=== PATIENT | female | born 1955 | race Caucasian/White ===

== ENCOUNTER 2017-03-23 06:19 | Inpatient (IN) | payer OTHER ==
[2017-02-18 15:27] VITALS: Ht 157.5 cm; Wt 109.0 kg
--- NOTE | 2017-02-18 16:02 | PAT Medication Instructions ---
Service Date Feb 18, 2017. Current Home Medication List Aspirin (Aspirin Ec), 81 MG PO QAM Atenolol (Tenormin), 25 MG PO BID Cholecalciferol (Vitamin D), 1,000 INTER.UNIT PO QAM Cinnamon (Cinnamon), 1,000 MG PO BID Cyanocobalamin (Vitamin B12), 1 TAB PO QAM Duloxetine HCl (Duloxetine HCl), 60 MG PO BID Fish Oil (Mcintosh-3), 1 CAP PO QAM Liraglutide (Victoza), 1.8 MG INJ QAM Multiple Vitamins W/ Minerals (One Daily For Women), 1 TAB PO QAM Nortriptyline (Pamelor), 25 MG PO HS Omeprazole (Prilosec), 20 MG PO QAM Pregabalin (Lyrica), 150 MG PO BID Topiramate (Topiramate), 1 CAP PO HS Medication Instructions For Your Scheduled Surgery - Hold the following medications 2 weeks prior to surgery: Fish Oil (Mcintosh-3), 1 CAP PO QAM Cinnamon (Cinnamon), 1,000 MG PO BID - Hold the following medications the morning of surgery: Cholecalciferol (Vitamin D), 1,000 INTER.UNIT PO QAM Cyanocobalamin (Vitamin B12), 1 TAB PO QAM Multiple Vitamins W/ Minerals (One Daily For Women), 1 TAB PO QAM - Take the following medications the morning of surgery with a sip of water OTHERWISE NOTHING TO EAT OR DRINK AFTER MIDNIGHT: Aspirin (Aspirin Ec), 81 MG PO QAM Atenolol (Tenormin), 25 MG PO BID Duloxetine HCl (Duloxetine HCl), 60 MG PO BID Liraglutide (Victoza), 1.8 MG INJ QAM Pregabalin (Lyrica), 150 MG PO BID Omeprazole (Prilosec), 20 MG PO QAM - Take the following medications as scheduled the night before surgery: Atenolol (Tenormin), 25 MG PO BID Duloxetine HCl (Duloxetine HCl), 60 MG PO BID Nortriptyline (Pamelor), 25 MG PO HS Topiramate (Topiramate), 1 CAP PO HS Pregabalin (Lyrica), 150 MG PO BID If you have any questions please call us at [phone] or [phone] or [phone]
[2017-02-18 16:24] LABS: MANUAL MICROSCOPIC REQUIRED? NO; REVIEW REQ? NO; URINE APPEARANCE CLEAR (CLEAR); URINE BILIRUBIN NEG (NEG); URINE COLOR YELLOW; URINE EPITHELIAL CELL AUTO 0-5 /lpf (0-5); URINE NITRITE NEG (NEG); URINE PH 5.5 (4.5-7.5); URINE SPECIFIC GRAVITY 1.019 (1.000-1.030); UROBILINOGEN NEG (NEG); ZZUR CULT IF INDIC CLEAN CATCH NO
[2017-02-18 16:27] LABS: BASO % 0.2 %; BASO ABS # 0.02 K/uL (0-0.2); COMPLETE YES; EOS % 1.1 %; IG% 0.2 %; LYMPH % 39.4 %; LYMPH ABS # 3.61 K/uL (1.2-3.4); MEAN CELL VOLUME 94.4 fL (80-100); MEAN CORPUSCULAR HEMOGLOBIN 33.3 pg (25-34); MEAN CORPUSCULAR HGB CONC 35.2 g/dl (32-36); MEAN PLATELET VOLUME 11.7 fL (7.4-10.4); MONO % 5.7 %; NEUT % 53.4 %; PLATELET COUNT 216 K/uL (130-400); RED BLOOD COUNT 4.45 M/uL (4.2-5.4); WHITE BLOOD COUNT 9.16 K/uL (4.8-10.8)
[2017-02-18 16:37] LABS: BUN/CREATININE RATIO 14.4 (10-20); CALCIUM 9.9 mg/dl (8.5-10.1); CREATININE 0.76 mg/dl (0.60-1.20); POTASSIUM 3.9 mmol/L (3.5-5.1)
[2017-02-18 16:40] LABS: PROTHROMBIN TIME (PATIENT) 11.2 SECONDS (9.0-12.0)
[2017-02-19 07:59] LABS: ESTIMATED AVERAGE GLUCOSE 151 mg/dl; HA1C FLAG Normal (Normal)
--- NOTE | 2017-03-22 17:43 | HISTORY & PHYSICAL EXAMINATION ---
DATE OF ADMISSION: 03/23/2017 CHIEF COMPLAINT: Chronic left knee pain. HISTORY OF PRESENT ILLNESS: This is a 62-year-old female patient of Dr. Lee, complaining of chronic left knee pain, longstanding, now progressively getting worse. She has been diagnosed with end-stage osteoarthritis in her patellofemoral joint and her medial joint line. The patient has failed conservative treatment including anti-inflammatories, intra-articular injections and the use of a walker, cane and a brace. The patient has increased pain with weightbearing activities and her pain does interfere with her activities of daily living. PAST MEDICAL HISTORY: Heart murmur, hypertension, irregular heartbeat, anxiety, carpal tunnel syndrome, diabetes mellitus, anemia, rheumatoid arthritis, sciatica, osteoarthritis, acid reflux, hiatal hernia, and obesity. SOCIAL HISTORY: Nonsmoker and nondrinker. FAMILY HISTORY: Noncontributory. PAST SURGICAL HISTORY: Tonsillectomy, hip replacement on the left, hysterectomy, knee replacement on the right and thyroidectomy. MEDICATIONS: Atenolol 25 mg daily, Topamax 25 mg daily, Prilosec 20 mg daily, nortriptyline 25 mg daily, vitamin B12 daily, atenolol 50 mg daily, clopidogrel 150 mg daily, Cymbalta 60 mg daily, Victoza 18/3 mL daily, vitamin D daily, cinnamon 500 mg daily, multivitamin daily, fish oil daily, and aspirin 81 mg daily. ALLERGIES: AMOXICILLIN, CLINDAMYCIN, DEMEROL, KEFLEX, LISINOPRIL, METFORMIN, MORPHINE, PENICILLIN, PERCOCET AND TETANUS TOXOID. PHYSICAL EXAMINATION: GENERAL: Well-developed and well-nourished 62-year-old female in no acute distress. She is alert and oriented x3 and pleasant. HEENT: Normocephalic and atraumatic. Extraocular motions are intact. Pupils are equal and reactive to light. HEART: Regular rate and rhythm. No murmurs appreciated. LUNGS: Clear. ABDOMEN: Soft and nontender. Bowel sounds present. EXTREMITIES: Left knee reveals limited range of motion of 0-125. She has a neutral alignment. She has a mild effusion with 5/5 strength. Crepitation with passive range of motion. NEUROLOGIC: Neurovascularly, she is intact in her left lower extremity. DIAGNOSES: Left knee end-stage osteoarthritis with a history of heart murmur, hypertension, irregular heartbeat, anxiety, carpal tunnel syndrome, diabetes mellitus, anemia, rheumatoid arthritis, osteoarthritis, sciatica, acid reflux, and obesity. PLAN: The patient was advised of her diagnoses. Indications, risks, benefits, and postop course have all been reviewed. The patient wishes to proceed with a left total knee arthroplasty. Necessary consent forms, preoperative testing and clearances will be obtained.
[~2017-03-23] VITALS: Ht 157.5 cm; Wt 109.0 kg
[2017-03-23] VITALS (11 sets, daily range): BP systolic 111–153; BP diastolic 62–78; PULSE 61–98; TEMP 36.3–36.8; O2SAT 92–98
[~2017-03-23 06:19] MED LIST: ACETAMINOPHEN 500 MG TAB PO SCH; ASPI81TA28 PO; ATEN-173 PO; CHOL100010 PO; CINN1CAP2 PO; CYAN100020 PO; CYM60 PO; CeleBREX 200 MG CAP PO SCH; FAMOTIDINE 20 MG TAB PO SCH; GABAPENTIN 300 MG CAP PO SCH; LACTATED RINGER'S 1000ML 1,000 ML IV SCH; LACTATED RINGER'S 1000ML 500 ML IV ONE; LACTATED RINGER'S 1000ML IV SCH; LIRA18IN INJ; METOCLOPRAMIDE HCL 10 MG TAB PO SCH; MULT1TAB22 PO; NORT25CA PO; OMEG10007 PO; OMEP20CA9 PO; PREG1CAP70 PO; ROPIVACAINE 5MG/ML 30 ML 150 MG, BUPIVACAINE/EPINEPHR 0.5% MPF 30 ML, KETOROLAC TROMETH... INFIL SCH; TOPI25CA2 PO; VANCOMYCIN INJ 1,600 MG in SODIUM CHLORIDE 0.9% 500ML 500 ML IV SCH
[2017-03-23] MEDS: TRANEXAMIC ACID INJ 1,000 MG in SODIUM CHLORIDE 0.9% 100ML 100 ML IV SCH ×2 (06:30→09:11)
[2017-03-23] MEDS ORDERED: BUPIVACAINE 0.5 % 5 MG/1 ML PF 10ML VIAL ONE (06:38)
[2017-03-23] MEDS ORDERED: BUPIVACAINE 0.25% 30 ML VIAL ONE (06:38)
[2017-03-23] MEDS ORDERED: DEXAMETHASONE SOD INJ 4 MG/ML VIAL ONE (06:39)
--- NOTE | 2017-03-23 07:25 | History & Physical Bridge Note ---
H&P Re-Evaluation Bridge Note: I have examined the patient, reviewed the History & Physical and in the interval since the performance of the History & Physical I have noted the following changes of clinical significance: No changes noted
[2017-03-23] MEDS ORDERED: EpHEDrine SULFATE INJ 50 MG/ML AMP IV PRN (08:30)
[2017-03-23] MEDS ORDERED: ONDANSETRON INJ 2 MG/ML 2 ML VIAL IV PRN ×2 (08:30→12:00)
[2017-03-23] MEDS ORDERED: FENTANYL CITRATE INJ 50 MCG/1 ML 2 ML VIAL IV PRN (08:30)
[2017-03-23] MEDS ORDERED: ATROPINE SULFATE 0.1 MG/ML 5ML SYR IV PRN (08:30)
[2017-03-23] MEDS ORDERED: ORTHO JOINT ANESTHETIC ONE (09:01)
[2017-03-23] MEDS ORDERED: BACITRACIN 50000 UNIT VIAL ONE (09:02)
[2017-03-23] MEDS ORDERED: POVIDONE-IODINE OP SOLN 30 ML BTL ONE (09:02)
[2017-03-23] MEDS ORDERED: MIDAZOLAM HCL 1 MG/ML 2ML VIAL ONE (09:08)
[2017-03-23] MEDS ORDERED: FENTANYL CITRATE INJ 50 MCG/1 ML 2 ML VIAL ONE (09:08)
[2017-03-23] MEDS ORDERED: PROPOFOL IV EMULSION 10 MG/ML 20 ML VIAL IV ONE (10:10)
[2017-03-23] MEDS ORDERED: EpHEDrine SULFATE INJ 50 MG/ML AMP ONE (10:10)
[2017-03-23] MEDS ORDERED: EpHEDrine SULFATE 50MG/5ML SYR ONE (10:10)
--- NOTE | 2017-03-23 11:27 | [facility] Post Operative Brief Note ---
Immediate Operative Summary Operative Date Mar 23, 2017. Pre-Operative Diagnosis Left knee end-stage osteoarthritis Post-Operative Diagnosis Same as preoperative diagnosis Procedure(s) Performed Left Total Knee Arthroplasty Surgeon Dr. Fitz Lee Manager Of [employer] Surgeon(s) Erlin Cancino PA-C Estimated Blood Loss 5ml Findings patellar malalignment grade 4 patellofemoral and medial femoral condyle Specimens Permanent specimens A: Left knee bone and tissue Drains 2 hemovac Anesthesia spinal sedation orthomix Complication(s) None Disposition Recovery Room / PACU
[2017-03-23] MEDS ORDERED: SOD PHOSPHATE/SOD BIPHOSPHATE ENEMA 132 ML BTL PR PRN (12:00)
[2017-03-23] MEDS ORDERED: BISACODYL 10 MG SUPP PR PRN (12:00)
[2017-03-23] MEDS ORDERED: TRAMADOL HCL 50 MG TAB PO PRN (12:00)
[2017-03-23] MEDS ORDERED: HYDROmorphone INJ 0.5 MG/0.5 ML SYR IV PRN (12:00)
[2017-03-23] MEDS ORDERED: ZOLPIDEM TARTRATE 5 MG TAB PO PRN (12:00)
[2017-03-23] MEDS ORDERED: ACETAMINOPHEN 325 MG TAB PO PRN (12:00)
[2017-03-23] MEDS ORDERED: MAGNESIUM HYDROXIDE SUSP 30 ML UDC PO PRN (12:00)
--- NOTE | 2017-03-23 12:20 | DIAGNOSTIC IMAGING REPORT ---
LEFT KNEE 1 OR 2 VIEWS ROUTINE CLINICAL HISTORY: 62 years-old Female presenting with left knee degenerative joint disease. TECHNIQUE: Frontal and crosstable lateral views of the left knee were obtained. COMPARISON: None. FINDINGS: Postsurgical changes of total left knee arthroplasty with patellar resurfacing. Intra-articular and soft tissue emphysema noted. Surgical drain and skin chung in place. No acute fracture. No hardware complication. IMPRESSION: Expected postsurgical findings status post total left knee arthroplasty with patellar resurfacing. Electronically signed by: Ian Durán M.D. 03/23/2017 12:19 PM Dictated Date/Time: 03/23/2017 12:18 PM
--- NOTE | 2017-03-23 12:32 | Anesthesiology Progress Note ---
Anesthesia Post Op Note Date & Time Mar 23, 2017 at 12:32 Vital Signs Pain Intensity: 0 Vital Signs Past 12 Hours Date Time Temp Pulse Resp B/P (MAP) Pulse Ox O2 Delivery O2 Flow Rate FiO2 03/23/17 12:20 88 17 100 03/23/17 12:20 79 17 03/23/17 12:16 142/72 03/23/17 12:15 75 17 100 03/23/17 12:15 68 17 03/23/17 12:14 85 18 03/23/17 12:14 78 18 100 03/23/17 12:11 114/68 03/23/17 12:09 70 14 03/23/17 12:09 73 14 100 03/23/17 12:06 96/66 03/23/17 12:04 85 15 03/23/17 12:04 85 15 100 03/23/17 12:01 138/65 03/23/17 11:59 82 16 03/23/17 11:59 77 16 100 03/23/17 11:56 125/59 03/23/17 11:54 76 20 125/56 93 03/23/17 11:54 76 20 03/23/17 11:54 36.2 76 16 125/56 100 Mask 10 03/23/17 07:06 36.6 61 20 153/71 92 Room Air Notes Mental Status: alert / awake / arousable, participated in evaluation Pt Amnestic to Procedure: Yes Nausea / Vomiting: adequately controlled Pain: adequately controlled Airway Patency, RR, SpO2: stable & adequate BP & HR: stable & adequate Hydration State: stable & adequate Neuraxial Anesthesia: was administered, sensory block is resolving Anesthetic Complications: no major complications apparent
[2017-03-23] MEDS ORDERED: GLUCAGON FOR INJ 1 MG VIAL SQ PRN (14:00)
[2017-03-23] MEDS ORDERED: GLUCOSE 10 TABS/TUBE PO PRN (14:00)
[2017-03-23] MEDS ORDERED: DEXTROSE 50% 50 ML SYR IV PRN (14:00)
[2017-03-23] MEDS ORDERED: GLUCOSE 40% GEL 15 GM TUBE PO PRN (14:00)
[2017-03-23 14:13] LABS: BASO % 0.2 %; BASO ABS # 0.02 K/uL (0-0.2); EOS % 0.2 %; HEMATOCRIT 42.7 % (37-47); IG% 0.5 %; LYMPH % 13.8 %; LYMPH ABS # 1.34 K/uL (1.2-3.4); MEAN CELL VOLUME 97.3 fL (80-100); MEAN CORPUSCULAR HEMOGLOBIN 32.1 pg (25-34); MEAN PLATELET VOLUME 11.7 fL (7.4-10.4); MONO % 2.4 %; NEUT % 82.9 %; PLATELET COUNT 189 K/uL (130-400); RED BLOOD COUNT 4.39 M/uL (4.2-5.4); WHITE BLOOD COUNT 9.71 K/uL (4.8-10.8)
[2017-03-23 14:36] LABS: BUN/CREATININE RATIO 6.5 (10-20); CALCIUM 8.7 mg/dl (8.5-10.1); CREATININE 0.73 mg/dl (0.60-1.20); MAGNESIUM 1.9 mg/dl (1.8-2.4); POTASSIUM 3.7 mmol/L (3.5-5.1)
[2017-03-23 14:40] LABS: ALB/GLOB RATIO 0.9 (0.9-2); FERRITIN 80.8 ng/ml (8.0-388.0)
[2017-03-23] MEDS: SODIUM CHLORIDE 0.9% 1000ML 1,000 ML IV SCH ×2 (14:41→20:34)
[2017-03-23 14:43] LABS: COMPLETE YES
--- NOTE | 2017-03-23 16:23 | NEUROLOGY CONSULTATION ---
DATE OF CONSULTATION: 03/23/2017 DATE OF CONSULTATION: 03/23/2017 REQUESTING: Dr. Lee. CLINICAL DIAGNOSIS: Intermittent tremor right leg postoperatively. HISTORY OF PRESENT ILLNESS: Ms. Gresham is 62 years old, is a regular patient of Dr. Aliya Walden and has advanced osteoarthritis of her left knee. She underwent arthroscopy today and upon emerging from the anesthesia had intermittent tremulousness of her right leg, not her left, and to some degree both arms. This has been going on intermittently. There is no associated weakness. No new numbness. No convulsive activity of typical type and there has been no clouding of consciousness or any other issues but because of it neurology is being called. PAST MEDICAL HISTORY: Reveals heart murmur, hypertension, irregular heartbeat, possibly atrial fibrillation, chronic anxiety, carpal tunnel syndrome, diabetes with diabetic neuropathy, anemia, rheumatoid arthritis, sciatica, osteoarthritis, acid reflux, hiatal hernia and obesity and also significant for chronic intermittent migraine headaches, essential tremor and she is being treated for all this by Dr. Banks in the [facility]. She has been on Lyrica 150 mg twice a day, Cymbalta and up until a week ago Topamax 25 mg at bedtime which was on board because of her headaches. She felt that it actually made her headaches worse, but did treat her tremor to some degree. She also takes nortriptyline 25 mg daily, I assume for treatment of her headaches. PAST SURGICAL HISTORY: Surgically she has had a T&A, hip replacement on the left, hysterectomy, knee replacement on the right and thyroidectomy. MEDICATIONS: Include atenolol, Topamax 25 mg daily, Prilosec, nortriptyline 25 mg daily, vitamin B12, atenolol 50 mg daily, Plavix 75 mg daily, Cymbalta 60 mg daily, Victoza 18/3 mL daily, vitamin D daily, cinnamon 500 mg daily, multivitamins daily, fish oil daily, aspirin 81 mg daily. It looks as though she is also on Lyrica 150 mg twice a day. ALLERGIES: SHE CLAIMS ALLERGIES TO AMOXICILLIN, CLINDAMYCIN, DEMEROL, KEFLEX, LISINOPRIL, METFORMIN, MORPHINE, PENICILLIN, PERCOCET, AND TETANUS TOXOID. FAMILY HISTORY: Noncontributory. SOCIAL HISTORY: Reveals her to be . Nonconsumer of ethanol, nonsmoker. REVIEW OF SYSTEMS: Reveals the headaches, the tremor of the hands and feet and some neuropathic pain. She has had no recent fevers, sweats, chills, weight loss or weight gain. She has no new issues referable to head, eyes, ears, nose and throat, cardiovascular, pulmonary, gastrointestinal, genitourinary, musculoskeletal systems. PHYSICAL EXAMINATION: Today neurologically she has a blood pressure of 143/61 but initially she had some marginally elevated in the 150 to 76 range. Pulse is 98 and regular. Respirations are 19. Examination of the cranium and cranial nerves reveal some mild tremulousness of the speech and little titubation of the head. Eye movements are normal. Pupils are equal, round and reactive to light. Speech is otherwise clear. There is no aphasic tendencies. She has normal facial sensation. There is no tremor of the outstretched hands which is rapid and consistent with what I suspect is essential tremor. There is a little bit of superimposed cerebellar dysmetria on [id number] and point to point testing. She has a similar tremor in the right foot. The left leg is not moving that much. She has normal reflexes in the upper extremities, absent reflexes at the ankles, downgoing toes. Good strength bilaterally in the lower extremities and normal sensation with the exception of some mild distal vibratory loss and perhaps some mild thermal alteration over the feet. Frankly this looks like an essential tremor. I am not sure what is going on on the right leg. This may be part of her essential tremor. Some of this may well be volitional. None of this looks like a seizure. She feels her tremulousness was better on Topamax. I am going to reinstitute the medication at this time. I am going to da careful review of her drugs which seem to be slightly different here in the hospital than as recorded on her history and physical. I will check back with her tomorrow, but for now I would not do anything more neurologically other than observation and reinstituting Topamax. Unfortunately, if the Topamax does create more of a headache, then we may have to stop that and institute something like primidone, but penitentiary management of her neurologic care is going to reside with Dr. Banks. CORTEZ
--- NOTE | 2017-03-23 17:58 | Medical Consult ---
Consultation Date of Consultation: Mar 23, 2017. Attending Physician: Fitz Lee M.D. Reason for Consultation: postop medical management History of Present Illness Patient seen and examined after undergoing left TKA today by Dr. Lee. She reports feeling "shaky". Has not eaten today. BSG is 185. Notes having tremor of her right leg- this appeared to begin during our exam. Tremor resolved within a few minutes. States she has RLS causing her to kick in her sleep, but no similar tremor of the leg in the past. Has chronic intermittent tremor of the upper extremities which occurs at random. Sees neurologist in [place] for neuropathy. Her neurologist placed on Topamax for tremor approximately 3 months ago. Not having any pain. Denies dizziness, chest pain, SOB, N/V. Denies hx of seizure. Past Medical/Surgical History Medical Problems: (1) Arthritis Status: Chronic (2) DM type 2 (diabetes mellitus, type 2) Status: Chronic (3) GERD (gastroesophageal reflux disease) Status: Chronic (4) HTN (hypertension) Status: Chronic (5) Neuropathy Status: Chronic (6) Obesity, Class III, BMI 40-49.9 (morbid obesity) Status: Chronic (7) Osteoarthritis Status: Chronic (8) RLS (restless legs syndrome) Status: Chronic Surgical Problems: (1) History of total left hip arthroplasty Status: Chronic (2) S/P inguinal hernia repair Status: Chronic (3) S/P partial thyroidectomy Status: Chronic (4) S/P tonsillectomy Status: Chronic (5) S/P total hysterectomy Status: Chronic Family History Asthma MOTHER Diabetes mellitus MOTHER FH: cancer FATHER (lung CA) Hypertension SISTER Social History Smoking Status: Never Smoker Alcohol Use: none Drug Use: none Marital Status: Housing Status: lives with family Occupation Status: employed Allergies Coded Allergies: Tetanus Toxoid (Verified Allergy, Severe, TROUBLE BREATHING, 03/23/17) Penicillins (Verified Allergy, Mild, ITCHINESS, 03/23/17) Onion (Unverified Allergy, Unknown, ? REACTION, ALLERGY SHOWN ON SKIN TEST , 03/23/17) [place] (Verified Allergy, Unknown, PATCH TESTED HIVES REACTION, 03/23/17) PT DOESN'T EAT Tomato (Verified Allergy, Unknown, COUGHING, 03/23/17) Morphine (Verified Adverse Reaction, Intermediate, Gets wild and has the shakes, 03/23/17) Meperidine (Verified Adverse Reaction, Mild, NAUSEA AND VOMITING, 03/23/17) Metformin (Verified Adverse Reaction, Mild, diarrhea, 03/23/17) Oxycodone (Verified Adverse Reaction, Mild, Nausea/Vomiting, 03/23/17) Home Medications Active Reported One Daily For Women (Multiple Vitamins W/ Minerals) 1 Tab Tab 1 Tab PO QAM Aspirin Ec (Aspirin) 81 Mg Tab 81 Mg PO QAM Vitamin B12 (Cyanocobalamin) 1,000 Mcg Tab 1 Tab PO QAM Topiramate 25 Mg Cap 1 Cap PO HS Tenormin (Atenolol) 25 Mg Tab 25 Mg PO BID Pamelor (Nortriptyline HCl) 25 Mg Cap 25 Mg PO HS Cinnamon 500 Mg Cap 1,000 Mg PO BID [place]-3 (Fish Oil) 1 Ea Cap 1 Cap PO QAM Vitamin D (Cholecalciferol) 1,000 Inter.unit Tab 1,000 Inter.unit PO QAM Duloxetine HCl 60 Mg Cap 60 Mg PO BID Prilosec (Omeprazole) 20 Mg Cap 20 Mg PO QAM Victoza (Liraglutide) 18 Mg/3 Ml Inj 1.8 Mg INJ QAM Lyrica (Pregabalin) 150 Mg Cap 150 Mg PO BID Current Inpatient Medications Current Inpatient Medications Medications (Trade) Dose Ordered Sig/Amalia Route Start Time Stop Time Status Last Admin Dose Admin Lactated Ringer's 1,000 ml @ 15 mls/hr Q24H IV 03/23/17 06:00 03/24/17 05:59 Lactated Ringer's 1,000 ml @ 60 mls/hr [id number] IV 03/23/17 06:00 03/23/17 22:39 Acetaminophen (Tylenol Tab) 1,000 mg PREOP PO 03/23/17 06:00 03/23/17 18:00 03/23/17 07:27 1,000 MG Celecoxib (CeleBREX CAP) 200 mg PREOP PO 03/23/17 06:00 03/23/17 18:00 03/23/17 07:26 200 MG Famotidine (Pepcid Tab) 20 mg PREOP PO 03/23/17 06:00 03/23/17 18:00 03/23/17 07:27 20 MG Gabapentin (Neurontin Cap) 600 mg PREOP PO 03/23/17 06:00 03/23/17 18:00 03/23/17 07:26 600 MG Metoclopramide HCl (Reglan Tab) 10 mg PREOP PO 03/23/17 06:00 03/23/17 18:00 03/23/17 07:26 10 MG Tranexamic Acid 1000 mg/Sodium Chloride 110 ml @ 660 mls/hr TODAY@06,0630 IV 03/23/17 06:00 03/23/17 18:00 03/23/17 09:11 660 MLS/HR Vancomycin HCl 1600 mg/Sodium Chloride 532 ml @ 200 mls/hr PREOP IV 03/23/17 06:00 03/24/17 05:59 03/23/17 07:17 200 MLS/HR Fentanyl Citrate (Fentanyl Inj) 50 mcg Q5M PRN IV 03/23/17 08:30 03/23/17 14:00 Ondansetron HCl (Zofran Inj) 4 mg ONE PRN IV 03/23/17 08:30 03/23/17 14:00 Ephedrine Sulfate (EpHEDrine SULFATE INJ) 5 mg Q5M PRN IV 03/23/17 08:30 03/23/17 14:00 Atropine Sulfate (Atropine Sulfate 0.1MG/Ml Inj) 0.5 mg Q1M PRN IV 03/23/17 08:30 03/23/17 14:00 Atenolol (Tenormin Tab) 25 mg BID PO 03/23/17 21:00 04/22/17 20:59 Cholecalciferol (Vitamin D Tab) 1,000 inter.unit QAM PO 03/24/17 09:00 04/23/17 08:59 Duloxetine HCl (Cymbalta Cap) 60 mg BID PO 03/23/17 21:00 04/22/17 20:59 Nortriptyline HCl (Pamelor Cap) 25 mg HS PO 03/23/17 21:00 04/22/17 20:59 Pregabalin (Lyrica Cap) 150 mg BID PO 03/23/17 21:00 04/22/17 20:59 Non-Formulary Medication (Cyanocobalamin (Vitamin B12)) 1 tab QAM PO 03/24/17 09:00 04/23/17 08:59 UNV Miscellaneous Information (Order Awaiting Action) 1 ea QS N/A 03/23/17 16:00 04/22/17 15:59 Non-Formulary Medication (Topiramate ) 1 cap HS PO 03/23/17 21:00 04/22/17 20:59 UNV Sodium Chloride 1,000 ml @ 100 mls/hr Q10H IV 03/23/17 11:51 03/24/17 11:50 Vancomycin HCl 1750 mg/Sodium Chloride 535 ml @ 200 mls/hr Q12H IV 03/23/17 20:00 03/23/17 22:41 Acetaminophen/ Hydrocodone Bitart ([place] 5/325 Tab) 1 TABLET FOR PAIN RATING... Q4H PRN PO 03/23/17 12:00 04/06/17 11:59 Acetaminophen (Tylenol Tab) 650 mg Q6H PRN PO 03/23/17 12:00 04/22/17 11:59 Magnesium Hydroxide (Milk Of Magnesia Susp) 30 ml Q6H PRN PO 03/23/17 12:00 04/22/17 11:59 Bisacodyl (Dulcolax Supp) 10 mg DAILY PRN KS 03/23/17 12:00 04/22/17 11:59 Sodium Biphosphate/ Sodium Phosphate (Fleet Enema) 132 ml DAILY PRN KS 03/23/17 12:00 04/22/17 11:59 Docusate Sodium (coLACE CAP) 100 mg BID PO 03/23/17 21:00 04/22/17 20:59 Diphenhydramine HCl (Benadryl Cap) 25 mg Q8H PRN PO 03/23/17 12:00 04/22/17 11:59 Zolpidem Tartrate (Ambien Tab) 5 mg HSZ PRN PO 03/23/17 12:00 04/22/17 11:59 Multivitamins (Multivitamin Tab) 1 tab QAM PO 03/24/17 09:00 04/23/17 08:59 Ondansetron HCl (Zofran Inj) 4 mg Q6H PRN IV 03/23/17 12:00 04/22/17 11:59 Pantoprazole Sodium (Protonix Tab) 40 mg QAM PO 03/24/17 09:00 04/23/17 08:59 Tramadol HCl (Ultram Tab) 1 tablet for pain rating... Q4H PRN PO 03/23/17 12:00 04/22/17 11:59 Rivaroxaban (Xarelto Tab) 10 mg Q24H PO 03/24/17 06:00 04/05/17 05:59 Hydromorphone HCl (Dilaudid Inj) 0.5 mg Q3H PRN IV 03/23/17 12:00 04/06/17 11:59 Insulin Aspart (novoLOG ASPART) SLIDING SCALE G... ACHS SC 03/23/17 17:15 04/22/17 17:14 Review of Systems Ten systems reviewed and negative except as noted in HPI. Physical Exam Date Time Temp Pulse Resp B/P (MAP) Pulse Ox O2 Delivery O2 Flow Rate FiO2 03/23/17 13:25 77 18 150/76 (100) 98 03/23/17 12:31 81 19 143/61 100 03/23/17 12:31 83 19 03/23/17 12:26 78 21 03/23/17 12:26 82 21 154/53 100 03/23/17 12:26 36.4 81 16 143/61 (93) 100 Nasal Cannula 2 03/23/17 12:21 79 22 03/23/17 12:21 78 22 153/73 100 03/23/17 12:20 88 17 100 03/23/17 12:20 79 17 03/23/17 12:16 142/72 03/23/17 12:15 75 17 100 03/23/17 12:15 68 17 03/23/17 12:14 85 18 03/23/17 12:14 78 18 100 03/23/17 12:11 114/68 03/23/17 12:09 70 14 03/23/17 12:09 73 14 100 03/23/17 12:06 96/66 03/23/17 12:04 85 15 03/23/17 12:04 85 15 100 03/23/17 12:01 138/65 03/23/17 11:59 82 16 03/23/17 11:59 77 16 100 03/23/17 11:56 125/59 03/23/17 11:54 76 20 125/56 93 03/23/17 11:54 76 20 03/23/17 11:54 36.2 76 16 125/56 100 Mask 10 03/23/17 07:06 36.6 61 20 153/71 92 Room Air General Appearance: no apparent distress, + obese Head: normocephalic, atraumatic Eyes: normal inspection ENT: hearing grossly normal Neck: supple, trachea midline Respiratory/Chest: lungs clear, normal breath sounds, no respiratory distress Cardiovascular: regular rate, rhythm, no murmur, normal peripheral pulses Abdomen/GI: normal bowel sounds, non tender, soft Extremities/Musculoskelatal: no calf tenderness, no pedal edema, + pertinent finding (s/p left TKA. drain in place with sanguinous drainage. ) Neurologic/Psych: alert, normal mood/affect, oriented x 3, + pertinent finding (right lower extremity tremor during exam, resolved within 5-10 minutes. no focal deficit on gross examination. ) Skin: normal color, warm/dry Laboratory Results Last 24 Hours Test 03/23/17 06:49 03/23/17 12:03 03/23/17 13:21 03/23/17 13:32 Bedside Glucose 185 mg/dl 150 mg/dl 185 mg/dl Test 03/23/17 13:38 Assessment & Plan S/P LEFT TKA POD # [address] Lee Pain control, activity, wound care per ortho Monitor daily H/H for sign of acute blood loss anemia PT, OT evals RIGHT LEG TREMOR Workup- BSG in 180s, EKG unremarkable, CBC, CMP, mag unremarkable, lactate elevated to 3.6 (possibly secondary to surgery today) IVF's increased to 125/ hour Neurology consulted, discussed with Dr. Arguello who initially recommended EEG, after evaluation essential tremor was considered most likely, continued on Topamax DM TYPE 2 Hold Victoza Novolog sliding scale HYPERTENSION Stable, continue atenolol DVT PROPHYLAXIS Per ortho DISPOSITION Per ortho Patient seen in collaboration with Dr. Cobb. Please see his addendum. Attending Addendum, Dr. Cobb This is a 62 year female s/p left knee arthroplasty today with orthopedics consulting medicine service for further medical recommendations. When CHELSY Bill and I saw the patient earlier today for initial consult physical exam, patient was resting on the bed and had complaints of feeling tremors of upper extremities. Subsequent glucose check was performed and hypoglycemia was ruled out with glucose 185. During the physical exam, she was seen to have right lower extremity shaking. Patient reports that she has had episodes at home when sleeping and suddenly kick her right leg but it would not shake as we observed. Episode lasted for about 5 minutes before resolution on its own. She was completely conscious the entire time and was able to cooperate on physical exam. We ordered EKG and labs which were unremarkable except for lactic acid above 3 but this mild elevation may be due to recent orthopedic surgery. We consulted neurology service because it was unclear why patient was on topiramate as outpatient which she said was for her history of upper extremity tremors and also history of diabetic neuropathy. She reported that she was started on this medication 3 months ago and has not followed up with the outpatient neurology PA. We consulted neurology service to evaluate in case she may be having seizure. Neurology service asked us to order EEG but upon their evaluation later in the day, neurology service does not believe that she had seizure and may have had essential tremor vs shaking at patient's volition. We will defer neurology medications to neurology service. For her history of diabetes it would be preferable to be on sliding scale insulin instead of home dose Victoza.
[2017-03-23] MEDS: INSULIN ASPART 100 UNITS/ML 3 ML PEN SC SCH ×2 (18:21→21:29)
[2017-03-23] MEDS: HYDROCODONE/ACETAMOPHEN 5/325MG TAB PO PRN (19:34)
[2017-03-23] MEDS ORDERED: VANCOMYCIN INJ 1,750 MG in SODIUM CHLORIDE 0.9% 500ML 500 ML IV SCH (20:00)
[2017-03-23] MEDS: DULOXETINE HCL 60 MG CAP PO SCH (20:34)
[2017-03-23] MEDS: NORTRIPTYLINE HCL 25 MG CAP PO SCH (20:34)
[2017-03-23] MEDS: PREGABALIN 150 MG CAP PO SCH (20:35)
[2017-03-23] MEDS: TOPIRAMATE 25 MG TAB PO SCH (20:35)
[2017-03-23] MEDS: DOCUSATE SODIUM 100 MG CAP PO SCH (20:37)
[2017-03-23] MEDS ORDERED: NON-FORMULARY MEDICATION (Cinnamon 1,000 MG) PO SCH (21:00)
[2017-03-24] VITALS (8 sets, daily range): BP systolic 102–122; BP diastolic 59–75; PULSE 52–64; TEMP 36.4–36.8; O2SAT 92–96
[2017-03-24 00:29] LABS: ACT87 HEP C IGG SCREEN** NEG (NEG)
--- NOTE | 2017-03-24 00:55 | OPERATIVE REPORT ---
DATE OF OPERATION: 03/23/2017 INDICATION FOR PROCEDURE: A 62-year-old female who has end-stage osteoarthritis of her left knee, it is primarily patellofemoral joint. She has marked lateral tracking of the patella with patellofemoral malalignment and bone loss in the patellofemoral joint. Still has some maintained tibial-femoral joint space with some osteoarthritis there. She had successful right knee replacement in the past. PREOPERATIVE DIAGNOSIS: End-stage osteoarthritis, left knee. POSTOPERATIVE DIAGNOSIS: Same. PROCEDURE: Left total knee arthroplasty. SURGEON: Dr. Lee. SOLE MOLDER: Erlin Cancino PA-C. ANESTHESIA: Spinal sedation, adductor nerve block and Orthomix. OPERATIVE PROCEDURE: The patient was taken to the operating room, anesthetized under sedation and spinal anesthetic. She was placed supine on the operating room table. Pneumatic tourniquet was placed on the left upper thigh which was moderately obese and her left lower extremity was prepped and draped in the usual sterile fashion using ChloraPrep. Knee exam demonstrates she had a little bit of hyperextension of the knee and she had good range of motion and flexion. She had a lateral tracking patella, [id number] in the patellofemoral joint. She had a little bit ligamentous laxity with varus-valgus stress, but no particular instability. After the left lower extremity was sterilely prepped and draped with ChloraPrep, the leg was elevated, exsanguinated with Esmarch bandage and the pneumatic tourniquet was raised to 325 mmHg. Anterior incision made across the left knee. Skin was incised sharply, subcutaneous flaps were elevated. Incision was carried down through medial retinaculum and extended up in the mid third of the quadriceps tendon and extended down to the medial tibial tubercle. Intraarticular findings demonstrated eburnated bone in the patellofemoral joint, grade 4 patellofemoral DJD. She had bone loss in the patella with the width of the thinnest portion only 4 mm of bone remaining of the patella, which is quite thin. The medial femoral condyle had grade 4 DJD. Tibial plateau still had good articular cartilage in both compartments and lateral femoral condyle flexion surface still had good articular cartilage. Cruciate ligaments were still intact. Menisci were intact. I used the [employer] 2.0 total knee arthroplasty system using [employer] MR templating, templating the femur for a 4, tibia for a 2. The knee was then exposed by excising the infrapatellar fat pad, excising the cruciate ligaments and the meniscus remnants. Then, we excised the fat pad over the anterior femur for placement of the component in that area. We released the lateral synovial bands and then flexed up the knee and placed custom femoral cutting block in position with pins and then the anterior, posterior and chamfer cuts were made with a 5-in-1 cutting block for a size 4 femur. Then, the knee was extended and a subperiosteal peel was performed around the patella. Patella had large rimming osteophytes and quite thin as previously dictated. We could not totally reproduce the width of the patella and we could not take much patella off in order not to make it too thin, so we made the patella around between 10 and 11 mm thick, leaving a defect where there was significant bone loss in the lateral facet. We felt we could span that defect and use cement in that area. The freehand cut technique was used. The 32 patella was chosen. The drill holes were made for the patella and the trial was placed in position and had good coverage and it was stable. Then, attention was taken to the tibia. Tibia was subluxed and retractors were placed and the custom tibial cutting block was pinned in position and then we took +2 mm off the tibia based on MRI templating evaluation by the engineers. A cut was made perpendicular to the long axis of the tibia. Then, we assessed ligamentous balance with lamina edge sawyer and the ligaments were balanced in extension and flexion. The tibia was then re-exposed and then the 2 tibial trial baseplate was externally rotated in line with the tibial tubercle, pinned in position, and punch for stem was used. Then, the 4 femoral trial was inserted and centered, and the notch cutting devices were used. A collet was placed and a 12 insert which was the high flex posterior stabilized insert gave balanced ligaments full range of motion, but the patella had some slight liftoff laterally still, so we did a formal lateral release, leaving the synovium intact and the patella tracked centrally. The trials were removed and the anesthetic cocktail was injected per protocol. The knee was then copiously irrigated with pulsatile lavage antibiotic solution and bacitracin. Then, the Simplex cement was vacuum mixed. The final components were cemented with the final components being the [employer] Journey 2.0 Oxinium size 4 left femoral component posterior stabilized with the 2 tibial baseplate with a 12 mm posterior stabilized high flex poly insert and the 32 patella. While cement cured, we did a Betadine soak and then irrigated out the knee copiously again with antibiotic solution and bacitracin. Then brought 2 drains out laterally to lathing supervisor to a Hemovac. I then closed the quadriceps tendon and medial retinaculum with [id number] #1 Vicryl sutures. Subcutaneous tissue was closed with interrupted 2-0 Vicryl, skin was closed with chung. Sterile dressings were applied and the patient tolerated the procedure well. Erlin Cancino PA-C, was my orthotics prosthetics assistant, he functioned as orthotics prosthetics assistant, performing the tasks of leg positioning, soft tissue retraction, instrument management, and performed the fascial, subcutaneous and skin closure, and will participate in some of the postoperative care of the patient. I attest to the content of the Intraoperative Record and any orders documented therein. Any exception s are noted below.
[2017-03-24] MEDS: SODIUM CHLORIDE 0.9% 1000ML 1,000 ML IV SCH (03:32)
[2017-03-24] MEDS: RIVAROXABAN 10 MG TAB PO SCH (05:51)
[2017-03-24 06:23] LABS: MEAN CELL VOLUME 95.7 fL (80-100); MEAN CORPUSCULAR HEMOGLOBIN 32.7 pg (25-34); MEAN CORPUSCULAR HGB CONC 34.2 g/dl (32-36); MEAN PLATELET VOLUME 11.8 fL (7.4-10.4); PLATELET COUNT 181 K/uL (130-400); RED BLOOD COUNT 3.76 M/uL (4.2-5.4); WHITE BLOOD COUNT 14.08 K/uL (4.8-10.8)
[2017-03-24 06:53] LABS: BUN/CREATININE RATIO 11.2 (10-20); CALCIUM 8.5 mg/dl (8.5-10.1); CREATININE 0.58 mg/dl (0.60-1.20); POTASSIUM 3.9 mmol/L (3.5-5.1)
--- NOTE | 2017-03-24 08:02 | Orthopedic Progress Note ---
Orthopedic Progress Note Date of Service Mar 24, 2017. Subjective Post OP Day: 1 Reports: feeling well, pain controlled w PO medications, Denies: complaints, chest pain, SOB, nausea / vomiting, calf pain Additional Notes: Had some tremor episodes post op, neurology on board, EEG ordered, not initially thought to be a seizure. + hx RLS Objective calves soft nontender, N/V intact, capillary refill less than 2 sec., dressing C /D/I, A&O x3, toes mobile Date Time Temp Pulse Resp B/P (MAP) Pulse Ox O2 Delivery O2 Flow Rate FiO2 03/24/17 03:53 36.8 64 16 121/65 (83) 94 Room Air 03/24/17 00:10 Room Air 03/23/17 22:56 36.7 72 16 139/73 (95) 94 Room Air 03/23/17 20:29 76 137/75 (95) 03/23/17 19:17 36.3 82 18 136/71 (92) 97 Room Air 03/23/17 17:02 97 Room Air 03/23/17 16:03 36.8 88 18 111/62 (78) 95 Nasal Cannula 2.0 03/23/17 15:40 97 Nasal Cannula 2.0 03/23/17 14:52 36.4 76 18 117/68 (84) 97 Nasal Cannula 2.0 03/23/17 13:55 98 18 144/78 (100) 98 03/23/17 13:25 77 18 150/76 (100) 98 03/23/17 13:00 Nasal Cannula 2.0 03/23/17 13:00 Nasal Cannula 2.0 03/23/17 12:55 36.6 86 16 132/72 (92) 98 Nasal Cannula 2.0 03/23/17 12:31 81 19 143/61 100 03/23/17 12:31 83 19 03/23/17 12:26 78 21 03/23/17 12:26 82 21 154/53 100 03/23/17 12:26 36.4 81 16 143/61 (93) 100 Nasal Cannula 2 03/23/17 12:21 79 22 03/23/17 12:21 78 22 153/73 100 03/23/17 12:20 88 17 100 03/23/17 12:20 79 17 03/23/17 12:16 142/72 03/23/17 12:15 75 17 100 03/23/17 12:15 68 17 03/23/17 12:14 85 18 03/23/17 12:14 78 18 100 03/23/17 12:11 114/68 03/23/17 12:09 70 14 03/23/17 12:09 73 14 100 03/23/17 12:06 96/66 03/23/17 12:04 85 15 03/23/17 12:04 85 15 100 03/23/17 12:01 138/65 03/23/17 11:59 82 16 03/23/17 11:59 77 16 100 03/23/17 11:56 125/59 03/23/17 11:54 76 20 125/56 93 03/23/17 11:54 76 20 03/23/17 11:54 36.2 76 16 125/56 100 Mask 10 Laboratory Results 24 Hours: Test 03/23/17 13:57 03/24/17 05:26 White Blood Count 9.71 K/uL Red Blood Count 4.39 M/uL Hemoglobin 14.1 g/dL 12.3 g/dL Hematocrit 42.7 % 36.0 % Mean Corpuscular Volume 97.3 fL Mean Corpuscular Hemoglobin 32.1 pg Mean Corpuscular Hemoglobin Concent 33.0 g/dl Platelet Count 189 K/uL Mean Platelet Volume 11.7 fL Neutrophils (%) (Auto) 82.9 % Lymphocytes (%) (Auto) 13.8 % Monocytes (%) (Auto) 2.4 % Eosinophils (%) (Auto) 0.2 % Basophils (%) (Auto) 0.2 % Neutrophils # (Auto) 8.05 K/uL Lymphocytes # (Auto) 1.34 K/uL Monocytes # (Auto) 0.23 K/uL Eosinophils # (Auto) 0.02 K/uL Basophils # (Auto) 0.02 K/uL Assessment & Plan Assessment: POD #1, Lt TKA Post op tremor Plan: PT/ OT DVT proph- Xarelto D/C planning- HH for 2wks then OPPT when stable. Appreciate medicine and neurology input. Inhouse Planning Pain Management: [place], Dilaudid, PO Tylenol DVT Prophylaxis: Xarelto Discharge Planning Discharge Planning: home with home health Pain Management: [place] DVT Prophylaxis: Xarelto Therapy: Physical Therapy, Occupational Therapy
--- NOTE | 2017-03-24 08:04 | Discharge Instructions ---
Discharge Instructions Date of Service Mar 24, 2017. Admission Reason for Admission: Left Knee Degenerative Joint Disease Discharge Discharge Diagnosis / Problem: Left TKA Discharge Goals Goal(s): Improve function Activity Recommendations Activity Limitations: as noted below . Instructions / Follow-Up Instructions / Follow-Up ACTIVITY RECOMMENDATIONS: SELF CARE INSTRUCTIONS AFTER TOTAL KNEE REPLACEMENT A. You may need to continue a physical therapy program after discharge from the hospital. There are several options available to you. Your doctor will assist you in selecting the best one for you. 1. An out-patient facility 2 to 3 times a week for therapy or home therapy. 2. Continue working on all exercises taught to you in the hospital. Your goals should be to increase bending of your knee to 90 degrees and beyond and to fully straighten your knee. B. You may progress at your own pace from walking with a walker or crutches to a cane; then to no assistive devices. C. Make walking a part of your daily routine. Be up as much as comfortable with rest periods throughout the day. Rest with leg elevation is very important. Use the ice wrap frequently for the first 3-4 weeks. D. There are no restrictions on activities. You may ride in a car, shop, participate in electrical subcontractor and all social activities. E. Wear the long elastic stockings (JOHN hose) 20 hours a day for 2 weeks after surgery. They can be removed several times a day for laundering and for a bath. F. You may shower, no tub baths until cleared by your doctor. SPECIAL CARE INSTRUCTIONS: VERY IMPORTANT TO READ AND REVIEW A. There are a few signs you need to watch for after you are home. Call [facility] if you notice any of the followin. Increased severe knee pain. Some pain is expected especially when you exercise. 2. Increased swelling in your leg or knee; pain or swelling of the calf muscle in either lower leg. 3. Any fluid drainage from the incision. 4. Shortness of breath or chest pain. B. Please call [facility] at if you have any concerns or questions about your operation or recovery. The doctor or his nurse will return your call promptly. C. You must take antibiotics before dental work, bladder, bowel or other surgery. Your doctor will provide you with a permanent care to carry describing this precaution. IMPORTANT: * REMEMBER TO TAKE ASPIRIN, 81 MG, TWICE DAILY FOR 4 WEEKS UNLESS OTHERWISE DIRECTED. THIS IS YOUR BLOOD THINNER. * HIGH RISK PATIENTS MAY BE PRESCRIBED A STRONGER BLOOD THINNER. THIS WILL BE PROVIDED AT DISCHARGE. * CALL IF INCREASED PAIN, REDNESS, DRAINAGE OR FEVER GREATER THAT 101. * WEAR JOHN HOSE 20 HOURS PER DAY FOR 2 WEEKS. * YOU MAY HAVE A LARGE BAND-AID LIKE DRESSING (SILVERON). THIS WILL REMAIN ON YOUR INCISION FOR 7 DAYS, THEN CAN BE REMOVED. IF INCISION IS LEAKING THROUGH DRESSING, CALL THE OFFICE . FOLLOW UP VISIT: If appointment is not already scheduled: Please call [facility] to make a follow-up appointment for 2 weeks after your surgery at . Current Hospital Diet Patient's current hospital diet: Diabetes Type 2 Diet Discharge Diet Recommended Diet: Diabetes Type 2 Diet Procedures Procedures Performed: Left Total Knee Arthroplasty Pending Studies Studies pending at discharge: no Laboratory Results Hemoglobin A1c Test 02/18/17 15:58 Range/Units Estimated Average Glucose 151 mg/dl Hemoglobin A1c 6.9 H 4.5-5.6 % Medical Emergencies . Who to Call and When: Medical Emergencies: If at any time you feel your situation is an emergency, please call 911 immediately. . Non-Emergent Contact Non-Emergency issues call your: Primary Care Provider . "Provider Documentation" section prepared by Erlin Cancino. . VTE Core Measure Inpt VTE Proph given/why not?: Other Anticoagulation (Xarelto), T.EAfshan Stockings, SCD's [place] Drug Monitoring Program Search Results: patient reviewed within database, no issues identified
[2017-03-24] MEDS: DOCUSATE SODIUM 100 MG CAP PO SCH ×2 (08:33→21:00)
[2017-03-24] MEDS: MULTIVITAMIN TAB PO SCH (08:34)
[2017-03-24] MEDS: CYANOCOBALAMIN 500 MCG TAB (VIT B-12) PO SCH (08:34)
[2017-03-24] MEDS: DULOXETINE HCL 60 MG CAP PO SCH ×2 (08:34→21:13)
[2017-03-24] MEDS: CHOLECALCIFEROL 1000 INTER.UNIT TAB PO SCH (08:34)
[2017-03-24] MEDS: PANTOprazole SOD 40 MG TAB PO SCH (08:34)
[2017-03-24] MEDS: INSULIN ASPART 100 UNITS/ML 3 ML PEN SC SCH ×4 (08:41→21:00)
[2017-03-24] MEDS: PREGABALIN 150 MG CAP PO SCH ×2 (08:46→21:13)
--- NOTE | 2017-03-24 08:53 | Anesthesiology Progress Note ---
Anesthesia Post Op Note Date & Time Mar 24, 2017 at 08:51 Vital Signs Pain Intensity: 5.0 Vital Signs Past 12 Hours Date Time Temp Pulse Resp B/P (MAP) Pulse Ox O2 Delivery O2 Flow Rate FiO2 03/24/17 08:22 36.8 60 16 117/68 (84) 96 Room Air 03/24/17 03:53 36.8 64 16 121/65 (83) 94 Room Air 03/24/17 00:10 Room Air 03/23/17 22:56 36.7 72 16 139/73 (95) 94 Room Air Notes Mental Status: see Notes Airway Patency, RR, SpO2: stable & adequate BP & HR: stable & adequate Hydration State: stable & adequate pt having confusion/passing out/falling; pt was hooked up to EEG monitor; spoke with warehouse technician and he stated he did not note any seizure activity; Neurology consult is to see pt today. pt unable to participate in evaluation;
[2017-03-24] MEDS: HYDROCODONE/ACETAMOPHEN 5/325MG TAB PO PRN ×2 (09:50→15:43)
--- NOTE | 2017-03-24 16:24 | PROGRESS NOTE ---
DATE: 03/24/2017 SUBJECTIVE: Marie looks well today. She still has a tremor of her hands which is chronic and now has very little if any tremor in the lower extremities and both of them are moving well. She is post-spinal anesthesia, so some of the lack of left leg tremor yesterday may have been caused by the effects of the local anesthesia and it is possible she was simply having more generalized tremor as part of her essential tremor syndrome, postoperatively. Whatever the case, exam is essentially normal save for the tremor.There are no cranial nerve deficits,the only movement abnormalities are the tremors of the hands which is worse with intention and it disappears at rest and there is no evidence for hemiparesis, hemisensory loss, etc. More importantly, the EEG today was normal, revealing no evidence for focal or generalized encephalopathy. No evidence for potentially epileptogenic activity, specifically not originating from the left hemisphere. She is back on her basic medications which include Topamax 25 daily, Lyrica 150 mg twice a day, Cymbalta 60 mg daily, and nortriptyline 25 mg daily. These have been given by in [place] and she is going to follow up with him regarding her tremor, her migraine headaches and other neurologic issues. The plan is apparently for discharge tomorrow and I am going to sign off the case neurologically as she appears to be stable and is back to her baseline neurologically. [facility] CAMPUSCarmelita
[2017-03-24] MEDS: NORTRIPTYLINE HCL 25 MG CAP PO SCH (21:13)
[2017-03-24] MEDS: TOPIRAMATE 25 MG TAB PO SCH (21:13)
--- NOTE | 2017-03-24 21:31 | Progress Note ---
Medicine Progress Note Date & Time of Visit: Mar 24, 2017 at 11:50 . Subjective Doing well postoperatively. No chest pain. No cough or dyspnea. No nausea or vomiting. No BM postop. Voiding without difficulty. Postop pain fairly well-controlled. . Objective Last 8 Hrs Date Time Temp Pulse Resp B/P (MAP) Pulse Ox O2 Delivery O2 Flow Rate FiO2 03/24/17 21:09 52 122/75 (91) 03/24/17 15:58 36.4 59 16 102/59 (73) 95 Room Air 03/24/17 15:45 96 Room Air Physical Exam: General- lying in bed, no distress Neck- no JVD Lungs- clear Heart- regular Abdomen- normal bowel sounds, soft, nontender Extremities- left knee wrapped; SCDs applied Neuro- alert . Laboratory Results: Last 24 Hours Test 03/24/17 05:26 03/24/17 08:09 03/24/17 11:09 03/24/17 11:57 White Blood Count 14.08 K/uL Red Blood Count 3.76 M/uL Hemoglobin 12.3 g/dL Hematocrit 36.0 % Mean Corpuscular Volume 95.7 fL Mean Corpuscular Hemoglobin 32.7 pg Mean Corpuscular Hemoglobin Concent 34.2 g/dl RDW Standard Deviation 42.7 fL RDW Coefficient of Variation 12.2 % Platelet Count 181 K/uL Mean Platelet Volume 11.8 fL Sodium Level 139 mmol/L Potassium Level 3.9 mmol/L Chloride Level 106 mmol/L Carbon Dioxide Level 29 mmol/L Anion Gap 4.0 mmol/L Blood Urea Nitrogen 6 mg/dl Creatinine 0.58 mg/dl Est Creatinine Clear Calc Drug Dose 117.0 ml/min Estimated GFR () 114.5 Estimated GFR (Non- 98.8 BUN/Creatinine Ratio 11.2 Random Glucose 172 mg/dl Calcium Level 8.5 mg/dl Bedside Glucose 169 mg/dl 144 mg/dl 149 mg/dl Test 03/24/17 17:11 03/24/17 20:45 Bedside Glucose 224 mg/dl 151 mg/dl Assessment & Plan S/P LEFT TKA Doing well postoperatively. HYPERTENSION Blood pressure this morning 117/68. Continue atenolol. DM TYPE 2 Hemoglobin A1c 6.9 on 02/18/17. Victoza on hold during hospital stay. Fasting blood sugar this morning 169. Continue insulin coverage per protocol. GERD Continue PPI. VTE PROPHYLAXIS Per Orthopedic protocol. DISPOSITION Patient anticipates discharge to home. Medical follow-up with Dr. Camilo. Thank you for this consultation. We will follow the patient with you during their hospital stay. You can reach a member of the [facility] Hospitalist Team 21/02 via pager @ [phone]. You can reach me via cell @ [phone]. . Current Inpatient Medications: Current Inpatient Medications Medications (Trade) Dose Ordered Sig/Amalia Route Start Time Stop Time Status Last Admin Dose Admin Atenolol (Tenormin Tab) 25 mg BID PO 03/23/17 21:00 04/22/17 20:59 03/24/17 08:33 25 MG Cholecalciferol (Vitamin D Tab) 1,000 inter.unit QAM PO 03/24/17 09:00 04/23/17 08:59 03/24/17 08:34 1,000 INTER.UNIT Duloxetine HCl (Cymbalta Cap) 60 mg BID PO 03/23/17 21:00 04/22/17 20:59 03/24/17 21:13 60 MG Nortriptyline HCl (Pamelor Cap) 25 mg HS PO 03/23/17 21:00 04/22/17 20:59 03/24/17 21:13 25 MG Pregabalin (Lyrica Cap) 150 mg BID PO 03/23/17 21:00 04/22/17 20:59 03/24/17 21:13 150 MG Cyanocobalamin (Vitamin B-12 Tab) 1,000 mcg QAM PO 03/24/17 09:00 04/23/17 08:59 03/24/17 08:34 1,000 MCG Miscellaneous Information (Order Awaiting Action) 1 ea QS N/A 03/23/17 16:00 04/22/17 15:59 Topiramate (Topamax Tab) 25 mg HS PO 03/23/17 21:00 04/22/17 20:59 03/24/17 21:13 25 MG Acetaminophen/ Hydrocodone Bitart (Victor[place] 5/325 Tab) 1 TABLET FOR PAIN RATING... Q4H PRN PO 03/23/17 12:00 04/06/17 11:59 03/24/17 15:43 2 TAB Acetaminophen (Tylenol Tab) 650 mg Q6H PRN PO 03/23/17 12:00 04/22/17 11:59 Magnesium Hydroxide (Milk Of Magnesia Susp) 30 ml Q6H PRN PO 03/23/17 12:00 04/22/17 11:59 Bisacodyl (Dulcolax Supp) 10 mg DAILY PRN [place] 03/23/17 12:00 04/22/17 11:59 Sodium Biphosphate/ Sodium Phosphate (Fleet Enema) 132 ml DAILY PRN [place] 03/23/17 12:00 04/22/17 11:59 Docusate Sodium (coLACE CAP) 100 mg BID PO 03/23/17 21:00 04/22/17 20:59 03/24/17 08:33 100 MG Diphenhydramine HCl (Benadryl Cap) 25 mg Q8H PRN PO 03/23/17 12:00 04/22/17 11:59 Zolpidem Tartrate (Ambien Tab) 5 mg HSZ PRN PO 03/23/17 12:00 04/22/17 11:59 Multivitamins (Multivitamin Tab) 1 tab QAM PO 03/24/17 09:00 04/23/17 08:59 03/24/17 08:34 1 TAB Ondansetron HCl (Zofran Inj) 4 mg Q6H PRN IV 03/23/17 12:00 04/22/17 11:59 Pantoprazole Sodium (Protonix Tab) 40 mg QAM PO 03/24/17 09:00 04/23/17 08:59 03/24/17 08:34 40 MG Tramadol HCl (Ultram Tab) 1 tablet for pain rating... Q4H PRN PO 03/23/17 12:00 04/22/17 11:59 Rivaroxaban (Xarelto Tab) 10 mg Q24H PO 03/24/17 06:00 04/05/17 05:59 03/24/17 05:51 10 MG Hydromorphone HCl (Dilaudid Inj) 0.5 mg Q3H PRN IV 03/23/17 12:00 04/06/17 11:59 Insulin Aspart (novoLOG ASPART) SLIDING SCALE G... ACHS SC 03/23/17 17:15 04/22/17 17:14 03/24/17 18:04 7 UNITS Glucose (Glucose 40% Gel) 15-30 GRAMS 15 GRAMS... UD PRN PO 03/23/17 14:00 04/22/17 13:59 Glucose (Glucose Chew Tab) 4-8 Tablets 4 Tabl... UD PRN PO 03/23/17 14:00 04/22/17 13:59 Dextrose (Dextrose 50% 50ML Syringe) 25-50ML OF 50% DW IV FOR... UD PRN IV 03/23/17 14:00 04/22/17 13:59 Glucagon (Glucagon Inj) 1 mg UD PRN SQ 03/23/17 14:00 04/22/17 13:59
[2017-03-25] MEDS: HYDROCODONE/ACETAMOPHEN 5/325MG TAB PO PRN ×3 (01:02→12:57)
[2017-03-25] MEDS: RIVAROXABAN 10 MG TAB PO SCH (06:10)
[2017-03-25 06:15] LABS: HEMATOCRIT 35.4 % (37-47); MEAN CELL VOLUME 97.8 fL (80-100); MEAN CORPUSCULAR HEMOGLOBIN 30.9 pg (25-34); MEAN CORPUSCULAR HGB CONC 31.6 g/dl (32-36); PLATELET COUNT 165 K/uL (130-400); RED BLOOD COUNT 3.62 M/uL (4.2-5.4); WHITE BLOOD COUNT 10.26 K/uL (4.8-10.8)
[2017-03-25 06:50] LABS: BUN/CREATININE RATIO 15.1 (10-20); CALCIUM 8.4 mg/dl (8.5-10.1); CREATININE 0.63 mg/dl (0.60-1.20); POTASSIUM 3.5 mmol/L (3.5-5.1)
[2017-03-25 07:28] VITALS: BP 110/60; PULSE 60; TEMP 36.4; O2SAT 93
[2017-03-25 08:11] VITALS: O2SAT 93
[2017-03-25] MEDS: PREGABALIN 150 MG CAP PO SCH (08:23)
[2017-03-25] MEDS: PANTOprazole SOD 40 MG TAB PO SCH (08:24)
[2017-03-25] MEDS: MULTIVITAMIN TAB PO SCH (08:25)
[2017-03-25] MEDS: CYANOCOBALAMIN 500 MCG TAB (VIT B-12) PO SCH (08:25)
[2017-03-25] MEDS: DOCUSATE SODIUM 100 MG CAP PO SCH (08:25)
[2017-03-25] MEDS: CHOLECALCIFEROL 1000 INTER.UNIT TAB PO SCH (08:25)
[2017-03-25] MEDS: DULOXETINE HCL 60 MG CAP PO SCH (08:26)
[2017-03-25] MEDS: INSULIN ASPART 100 UNITS/ML 3 ML PEN SC SCH ×2 (09:21→12:56)
--- NOTE | 2017-03-25 10:17 | Orthopedic Progress Note ---
Orthopedic Progress Note Date of Service Mar 25, 2017. Subjective Post OP Day: 2 Reports: feeling well, pain controlled w PO medications, Denies: complaints, chest pain, SOB, nausea / vomiting, light headedness, calf pain Objective calves soft nontender, N/V intact, capillary refill less than 2 sec., dressing C /D/I, A&O x3, toes mobile Date Time Temp Pulse Resp B/P (MAP) Pulse Ox O2 Delivery O2 Flow Rate FiO2 03/25/17 08:15 Room Air 03/25/17 08:11 93 Room Air 03/25/17 07:28 36.4 60 12 110/60 (77) 93 Room Air 03/25/17 00:30 Room Air 03/24/17 23:18 36.7 52 16 116/70 (85) 92 Room Air 03/24/17 21:09 52 122/75 (91) 03/24/17 15:58 36.4 59 16 102/59 (73) 95 Room Air 03/24/17 15:45 96 Room Air 03/24/17 12:21 36.6 55 16 122/70 (87) 96 Room Air Laboratory Results 24 Hours: Test 03/25/17 05:08 Hematocrit 35.4 % Hemoglobin 11.2 g/dL Assessment & Plan Assessment: POD #2, Lt TKA Post op tremor Plan: PT/ OT DVT proph- Xarelto D/C planning- HH for 2wks then OPPT when stable. Appreciate medicine and neurology input. Inhouse Planning Pain Management: [place], Dilaudid, PO Tylenol DVT Prophylaxis: Xarelto Discharge Planning Discharge Planning: home with home health Pain Management: [place] DVT Prophylaxis: Xarelto Therapy: Physical Therapy, Occupational Therapy
[2017-03-25] MEDS ORDERED: XRL10 PO (10:19)
[2017-03-25] MEDS ORDERED: HYDR-5688 PO (10:19)
--- NOTE | 2017-03-25 11:52 | ELECTROENCEPHALOGRAPH REPORT ---
REQUESTING DOCTOR: Dr. Vinnie Arguello. CLINICAL DIAGNOSES: Intermittent right leg tremor with a history of essential tremor. Onset of right leg tremor postoperatively, question seizures. ELECTROENCEPHALOGRAM DIAGNOSIS: Essentially normal during wakefulness and drowsiness. DESCRIPTION OF TRACING: This EEG obtained as a bedside recording and is of good technical quality with few or no muscle movement artifacts being recorded. A simultaneous video analysis of the patient movement and behavior was performed. Photic stimulation is the only stimulus parameter utilized. Hyperventilation was not done and drowsiness is recorded intermittently, but is never sustained. Under these conditions, there is evidence for what appears to be a normal background rhythm in the alpha range of up to 9 Hz of maximum frequency and 30 microvolts of maximum amplitude. This is maximum posterior head regions bilaterally symmetrical. Polymorphic mid frequency theta activity is seen over all head regions without clear focal or regional predominance. Anterior head region maximum bilaterally symmetrical low voltage fast activity in the beta range is present. Photic stimulation provoked some modest driving response, but without a photomyogenic or photoparoxysmal component. Drowsiness is briefly recorded during which the background alpha rhythm was replaced by theta activity and has a buildup of slow wave activity, but no abnormal activations occur. At no time during the waking or drowsy tracing is there evidence for potentially epileptogenic activity in the form of polyspike or spike wave bursts, focal sharp waves or focal spikes and there is specifically no evidence for focal slowing over the left hemisphere anteriorly, which might correlate with seizure activity. INTERPRETATION: In summary, then this is a normal electroencephalogram without evidence for focal or generalized encephalopathy and without evidence for potentially epileptogenic activity.
[2017-03-25 13:06] VITALS: BP 110/60; PULSE 60; TEMP 36.4; O2SAT 93
--- NOTE | 2017-04-07 09:52 | DISCHARGE SUMMARY ---
This is a 62-year-old female patient of Dr. Lee'claudia complaining of chronic left knee pain, longstanding and progressively getting worse. The patient failed conservative treatment and elected to proceed with a left total knee arthroplasty. PAST MEDICAL HISTORY: Heart murmur, hypertension, irregular heartbeat, anxiety, carpal tunnel syndrome, diabetes mellitus, anemia, rheumatoid arthritis, sciatica, osteoarthritis, acid reflux, hiatal hernia and obesity. POSTOPERATIVE COURSE: The patient underwent a left total knee arthroplasty on 03/23/2017. She was followed closely with medical consultation, DVT prophylaxis in the form of Xarelto, pain control and physical theray. The patient did have some right lower extremity tremoring postoperative day 1. EKG and CMP were normal. Neurology was consulted. An EEG was negative. Patient was diagnosed with essential tremor with a history of restless leg syndrome. Otherwise the patient did well postoperatively and was discharged home with home health services on postoperative day 2. PHYSICAL EXAM ON DISCHARGE: Left knee dressing was clean, dry and intact. There was no redness or draining. She had no calf tenderness. Negative Champ sign. Neurologically neurovascularly she was intact in her left lower extremity. DIAGNOSIS: Status post left total knee arthroplasty with a history of heart murmur, hypertension, irregular heartbeat, anxiety, carpal tunnel syndrome, diabetes mellitus, anemia, rheumatoid arthritis, sciatica, acid reflux, osteoarthritis, hiatal hernia, and obesity. PLAN: The patient was discharged home with home health services. She will continue Xarelto and her preadmission medications.
== END 2017-03-25 13:55 | disposition home health service (06) | DRG 470 ==
LOC: C.ACU 06:19 → C.3E 06:40 → ENRESERV 12:07 → CANRESERV 12:07 → ENRESERV 12:34
PROVIDERS: ADMIT Orthopaedic Surgery Sports Medicine; ATTEND Orthopaedic Surgery Sports Medicine
PROC: 0SRD0J9 Replacement of Left Knee Joint with Synthetic Substitute, Cemented, Open Approach (ICD-10-PCS; principal; 2017-03-23 08:45)
DX: M17.12 Unilateral primary osteoarthritis, left knee (principal); Z68.41 Body mass index [BMI] 40.0-44.9, adult; E66.2 Morbid (severe) obesity with alveolar hypoventilation; G25.0 Essential tremor; Z88.0 Allergy status to penicillin; I10 Essential (primary) hypertension; G56.00 Carpal tunnel syndrome, unspecified upper limb; K21.9 Gastro-esophageal reflux disease without esophagitis; G25.81 Restless legs syndrome; G62.9 Polyneuropathy, unspecified; E11.9 Type 2 diabetes mellitus without complications; Z79.82 Long term (current) use of aspirin; Z96.651 Presence of right artificial knee joint; Z96.642 Presence of left artificial hip joint

== ENCOUNTER → 2017-10-21 | Outpatient (CLI) | payer OTHER ==
[~2017-10-21] MED LIST changes: -ACETAMINOPHEN 500 MG TAB PO SCH; -CeleBREX 200 MG CAP PO SCH; -FAMOTIDINE 20 MG TAB PO SCH; -GABAPENTIN 300 MG CAP PO SCH; -LACTATED RINGER'S 1000ML 1,000 ML IV SCH; -LACTATED RINGER'S 1000ML 500 ML IV ONE; -LACTATED RINGER'S 1000ML IV SCH; -METOCLOPRAMIDE HCL 10 MG TAB PO SCH; -ROPIVACAINE 5MG/ML 30 ML 150 MG, BUPIVACAINE/EPINEPHR 0.5% MPF 30 ML, KETOROLAC TROMETH... INFIL SCH; -VANCOMYCIN INJ 1,600 MG in SODIUM CHLORIDE 0.9% 500ML 500 ML IV SCH; +XRL10 PO
[2017-10-21 16:54] LABS: ALBUMIN 3.4 gm/dl (3.4-5.0); ALT/SGPT 48 U/L (12-78); BLOOD UREA NITROGEN 13 mg/dl (7-18); CALCIUM 9.2 mg/dl (8.5-10.1); CARBON DIOXIDE 27 mmol/L (21-32); CHOLESTEROL 181 mg/dl (0-200); CREATININE 0.77 mg/dl (0.60-1.20); GLUCOSE 298 mg/dl (70-99); POTASSIUM 3.7 mmol/L (3.5-5.1); SODIUM 129 mmol/L (136-145)
[2017-10-21 17:05] LABS: ALKALINE PHOSPHATASE 143 U/L (45-117); AST/SGOT 43 U/L (15-37); LDL CHOLESTEROL CALCULATED 72 mg/dl; TOTAL PROTEIN 7.4 gm/dl (6.4-8.2)
[2017-10-22 07:41] LABS: HEMOGLOBIN A1C 10.9 % (4.5-5.6)
== END | disposition home or self-care (01) ==
LOC: C.LABPBG 13:30
PROVIDERS: ATTEND Physician Assistant
DX: E11.9 Type 2 diabetes mellitus without complications (principal)

== ENCOUNTER → 2017-10-26 | Outpatient (CLI) | payer OTHER | END | disposition home or self-care (01) | LOC: C.LABPBG 15:41 | PROVIDERS: ATTEND Physician Assistant | DX: E11.65 Type 2 diabetes mellitus with hyperglycemia (principal) ==

== ENCOUNTER 2017-11-23 15:20 | Emergency (ER) | payer OTHER ==
[~2017-11-23] VITALS: Ht 160 cm; Wt 108.9 kg
[2017-11-23 15:32] VITALS: TEMP 36.6; Ht 160 cm; Wt 108.9 kg
[2017-11-23] MEDS ORDERED: CHOL200010 PO (15:59)
[2017-11-23] MEDS ORDERED: INSU1INJ33 SQ (15:59)
--- NOTE | 2017-11-23 16:11 | EMERGENCY ROOM VISIT NOTE ---
History Report prepared by Sandra: Rodrigo Roberson Under the Supervision of: Dr. Deon Vasquez M.D. First contact with patient: 15:41 Chief Complaint: CARDIAC ASSESSMENT Stated Complaint: PALPITATIONS, R SIDE AB DICOMFORT, PAIN SHOULDERS Nursing Triage Summary: PALPATIONS STARTED 3 DAYS AGO THAT THEY COME AND GO History of Present Illness The patient is a 62 year old white female with a past medical history of arthritis, DM2, GERD, HTN, bilateral knee DJD, neuropathy, hysterectomy, and a hernia repair, who presents to the ED with a cc of constant generalized weakness beginning three days ago. Positive right sided abdominal pain that is worse with laying on it, chills, nausea, headache, and her head "sounds like an ocean". Negative recent falls, injuries, cough, fever, runny nose, sore throat, chest pain, SOB, urinary symptoms, and hx of kidney stones. She denies any sick contacts, drinking any water from a stream or well, and denies any camping, hiking, or tick bites. She got a flu shot this year. Source of History: patient Onset: thre days ago Position: other (generalized) Quality: other (weakness) Timing: constant Associated Symptoms: + chills, + headache, + nausea, + abdominal pain, No fevers, No sorethroat, No cough, No chest pain, No SOB, No urinary symptoms Review of Systems See HPI for pertinent positives and negatives. A total of ten systems were reviewed and were otherwise negative. Past Medical & Surgical Medical Problems: (1) Arthritis (2) DM type 2 (diabetes mellitus, type 2) (3) GERD (gastroesophageal reflux disease) (4) HTN (hypertension) (5) Left knee DJD (6) Neuropathy (7) Obesity, Class III, BMI 40-49.9 (morbid obesity) (8) Osteoarthritis (9) Right knee DJD (10) RLS (restless legs syndrome) Surgical Problems: (1) History of total left hip arthroplasty (2) S/P inguinal hernia repair (3) S/P partial thyroidectomy (4) S/P tonsillectomy (5) S/P total hysterectomy Family History Asthma MOTHER Diabetes mellitus MOTHER FH: cancer FATHER (lung CA) Hypertension SISTER Social History Smoking Status: Never Smoker Drug Use: none Marital Status: Housing Status: lives with family Occupation Status: employed Current/Historical Medications Scheduled Aspirin (Aspirin Ec), 81 MG PO HS Atenolol (Tenormin), 25 MG PO BID Cholecalciferol (Vitamin D), 2,000 UNITS PO QAM Cinnamon (Cinnamon), 1,000 MG PO BID Duloxetine HCl (Duloxetine HCl), 60 MG PO BID Fish Oil ([place]-3), 1 CAP PO QAM Insulin Degludec (Tresiba Flextouch), 18 UNITS SQ HS Liraglutide (Victoza), 1.8 MG INJ QAM Multiple Vitamins W/ Minerals (One Daily For Women), 1 TAB PO QAM Nortriptyline (Pamelor), 25 MG PO HS Omeprazole (Prilosec), 20 MG PO QAM Pregabalin (Lyrica), 150 MG PO BID Topiramate (Topiramate), 1 CAP PO HS Scheduled PRN Ondansetron Hcl (Zofran), 4 MG PO Q8H PRN for Nausea Allergies Coded Allergies: Tetanus Toxoid (Verified Allergy, Severe, TROUBLE BREATHING, 11/23/17) Penicillins (Verified Allergy, Mild, ITCHINESS, 11/23/17) Onion (Unverified Allergy, Unknown, ? REACTION, ALLERGY SHOWN ON SKIN TEST , 11/23/17) [place] (Verified Allergy, Unknown, PATCH TESTED HIVES REACTION, 11/23/17) PT DOESN'T EAT Tomato (Verified Allergy, Unknown, COUGHING, 11/23/17) Morphine (Verified Adverse Reaction, Intermediate, Gets wild and has the shakes, 11/23/17) Meperidine (Verified Adverse Reaction, Mild, NAUSEA AND VOMITING, 11/23/17) Metformin (Verified Adverse Reaction, Mild, diarrhea, 11/23/17) Oxycodone (Verified Adverse Reaction, Mild, Nausea/Vomiting, 11/23/17) Physical Exam Vital Signs Date Time Temp Pulse Resp B/P (MAP) Pulse Ox O2 Delivery O2 Flow Rate FiO2 11/23/17 17:44 62 16 191/65 98 Room Air 11/23/17 16:52 72 11/23/17 16:38 59 18 152/71 94 Room Air 11/23/17 16:26 96 Room Air 11/23/17 15:32 36.6 57 18 180/79 96 Room Air 11/23/17 15:29 96 Room Air Physical Exam GENERAL: Awake, alert, well-appearing, NAD, wearing glasses. HENT: Normocephalic, atraumatic. EYES: Normal conjunctiva. Sclera non-icteric. PERRL. No anisocoria. NECK: Supple. No nuchal rigidity. FROM. RESPIRATORY: CTAB, no rhonchi, wheezing, crackles CARDIAC: RRR, no MRG ABDOMEN: No CVA TTP. Negative obturator. Negative psoas. Soft, NTND, BS+ MSK: No chest wall TTP, no LE edema NEURO: GCS 15, CN 2-12 intact, moves all 4s on command SKIN: No rash or jaundice noted. Medical Decision & Procedures ER Provider Diagnostic Interpretation: Radiology results as stated below per my review and radiologist interpretation: CHEST ONE VIEW PORTABLE CLINICAL HISTORY: Weakness, palpitations COMPARISON STUDY: 04/09/2016 FINDINGS: The cardiac and mediastinal contours are normal. There is no evidence of focal pulmonary consolidation. There is no evidence of failure. No pleural effusions are visualized.[ Slight interstitial prominence is likely related to technical factors. Arthritic changes are present within the left shoulder. IMPRESSION: No active disease in the chest. Electronically signed by: Jared Rueda M.D. 11/23/2017 5:18 PM Dictated Date/Time: 11/23/2017 5:17 PM Laboratory Results 11/23/17 16:10 Red Blood Count 4.79, Mean Corpuscular Volume 91.6, Mean Corpuscular Hemoglobin 31.7, Mean Corpuscular Hemoglobin Concent 34.6, Mean Platelet Volume 11.5, Neutrophils (%) (Auto) 48.4, Lymphocytes (%) (Auto) 45.2, Monocytes (%) (Auto) 4.8, Eosinophils (%) (Auto) 1.2, Basophils (%) (Auto) 0.2, Neutrophils # (Auto) 3.98, Lymphocytes # (Auto) 3.73, Monocytes # (Auto) 0.40, Eosinophils # (Auto) 0.10, Basophils # (Auto) 0.02 11/23/17 16:10 Test 11/23/17 16:10 11/23/17 17:10 White Blood Count 8.25 K/uL (4.8-10.8) Red Blood Count 4.79 M/uL (4.2-5.4) Hemoglobin 15.2 g/dL (12.0-16.0) Hematocrit 43.9 % (37-47) Mean Corpuscular Volume 91.6 fL (80-100) Mean Corpuscular Hemoglobin 31.7 pg (25-34) Mean Corpuscular Hemoglobin Concent 34.6 g/dl (32-36) Platelet Count 202 K/uL (130-400) Mean Platelet Volume 11.5 fL (7.4-10.4) Neutrophils (%) (Auto) 48.4 % Lymphocytes (%) (Auto) 45.2 % Monocytes (%) (Auto) 4.8 % Eosinophils (%) (Auto) 1.2 % Basophils (%) (Auto) 0.2 % Neutrophils # (Auto) 3.98 K/uL (1.4-6.5) Lymphocytes # (Auto) 3.73 K/uL (1.2-3.4) Monocytes # (Auto) 0.40 K/uL (0.11-0.59) Eosinophils # (Auto) 0.10 K/uL (0-0.5) Basophils # (Auto) 0.02 K/uL (0-0.2) RDW Standard Deviation 42.4 fL (36.4-46.3) RDW Coefficient of Variation 12.7 % (11.5-14.5) Immature Granulocyte % (Auto) 0.2 % Immature Granulocyte # (Auto) 0.02 K/uL (0.00-0.02) Anion Gap 6.0 mmol/L (3-11) Est Creatinine Clear Calc Drug Dose 90.9 ml/min Estimated GFR () 97.4 Estimated GFR (Non- 84.1 BUN/Creatinine Ratio 9.1 (10-20) Calcium Level 9.3 mg/dl (8.5-10.1) Magnesium Level 2.0 mg/dl (1.8-2.4) Total Bilirubin 0.5 mg/dl (0.2-1) Direct Bilirubin mg/dl (0-0.2) Aspartate Amino Transf (AST/SGOT) 30 U/L (15-37) Alanine Aminotransferase (ALT/SGPT) 30 U/L (12-78) Alkaline Phosphatase 106 U/L (45-117) Troponin I < 0.015 ng/ml (0-0.045) Pro-B-Type Natriuretic Peptide 58 pg/ml (0-900) Total Protein 7.3 gm/dl (6.4-8.2) Albumin 3.3 gm/dl (3.4-5.0) Lipase 157 U/L (73-393) Thyroid Stimulating Hormone (TSH) 0.664 uIu/ml (0.300-4.500) Chemistry Specimen Hemolysis Urine Color YELLOW Urine Appearance CLEAR (CLEAR) Urine pH 7.5 (4.5-7.5) Urine Specific [place] 1.012 (1.000-1.030) Urine Protein NEG (NEG) Urine Glucose (UA) NEG (NEG) Urine Ketones NEG (NEG) Urine Occult Blood NEG (NEG) Urine Nitrite NEG (NEG) Urine Bilirubin NEG (NEG) Urine Urobilinogen NEG (NEG) Urine Leukocyte Esterase TRACE (NEG) Urine WBC (Auto) 1-5 /hpf (0-5) Urine RBC (Auto) 0-4 /hpf (0-4) Urine Hyaline Casts (Auto) 1-5 /lpf (0-5) Urine Epithelial Cells (Auto) >30 /lpf (0-5) Urine Bacteria (Auto) NEG (NEG) Laboratory results reviewed by me Medications Administered Medications (Trade) Dose Ordered Sig/Amalia Route Start Time Stop Time Status Last Admin Dose Admin Potassium Chloride (Klor-Con Tab) 40 meq NOW STAT PO 11/23/17 17:14 11/23/17 17:15 DC 11/23/17 17:39 40 MEQ Sodium Chloride 500 ml @ 999 mls/hr Q31M STAT IV 11/23/17 17:46 11/23/17 18:16 DC 11/23/17 17:58 999 MLS/HR Famotidine (Pepcid Tab) 40 mg NOW ONCE PO 11/23/17 18:00 11/23/17 18:01 DC 11/23/17 17:57 40 MG Ondansetron HCl (Zofran Inj) 4 mg NOW STAT IV 11/23/17 17:46 11/23/17 17:49 DC 11/23/17 17:56 4 MG Al Hydroxide/Mg Hydroxide (Maalox Susp) 30 ml STK-MED ONCE .ROUTE 11/23/17 17:54 11/23/17 17:55 DC 11/23/17 17:57 30 ML Lidocaine HCl (Viscous Lidocaine 2% Soln) 20 ml STK-MED ONCE .ROUTE 11/23/17 17:54 11/23/17 17:55 DC 11/23/17 17:57 20 ML ECG Per My Interpretation Indication: weakness Rate (beats per minute): 64 Rhythm: sinus with SA Findings: other (Normal intervals, normal axxis, no STS changes or TWI) ED Course 1541: The patient was evaluated in room B6. A complete history and physical exam was performed. 175: I reevaluated the patient, and she was still having some GI discomfort. She is going to get more medications. 1843: I reevaluated the patient. Discussed results and discharge instructions: she verbalized understanding and agreement. The patient is ready for discharge. Medical Decision Nursing notes reviewed. Ancillary studies and prior records reviewed. The patient is a 62 year old white female with a past medical history of arthritis, DM2, GERD, HTN, bilateral knee DJD, neuropathy, hysterectomy, and a hernia repair, who presents to the ED with a cc of constant generalized weakness beginning three days ago. Differential diagnosis: Etiologies such as metabolic, infection, hypo/hyperglycemia, electrolyte abnormalities, cardiac sources, intracerebral event, toxicologic, neurologic, as well as others were entertained. Patient was seen and evaluated the bedside. Patient was complaining of some generalized weakness and fatigue 3 days. Patient believes it is been intermittent. She denies much in infectious symptoms. Patient did complain of some mild right-sided abdominal discomfort. Patient denies any nausea or vomiting but did complain of some mild GI upset. Patient has a negative obturators and so as the patient has not. Patient did have blood work completed along with urinalysis, EKG, troponin, and electrolytes. Patient's EKG is unremarkable. Troponin is negative. Less likely ACS or referred chest pain. The patient's blood work is otherwise fairly unremarkable. Patient had mild hypokalemia which was repleted. Magnesium normal. White blood cell count within normal limits the patient does not have elevations in LFTs or lipase. Patient's urinalysis negative for blood or infection. Patient was informed of these findings. Upon reassessment the patient still had some mild GI upset. The patient was given Pepcid, Zofran, IV fluids and a GI cocktail. The patient was feeling improved. Patient was told she can continue with Pepcid 20 mg twice daily. Patient was also gives medications or anti-medics at home. Patient was told to continue a bland diet and to continue to hydrate liberally with clear liquids. Patient was deemed suitable for outpatient follow-up and treatment at this time. Patient was given strict follow-up, discharge, and return precautions. All questions were answered. Patient was deemed suitable for outpatient follow- up at this time. Patient agreed with the plan of care and was safely discharged home. Medication Reconcilliation Current Medication List: was personally reviewed by me Blood Pressure Screening Patient's blood pressure: Elevated blood pressure Blood pressure disposition: Referred to PCP Impression Primary Impression: Generalized weakness Additional Impressions: Fatigue Hypokalemia Dyspepsia Scribe Attestation The scribe's documentation has been prepared under my direction and personally reviewed by me in its entirety. I confirm that the note above accurately reflects all work, treatment, procedures, and medical decision making performed by me. Departure Information Dispostion Home / Self-Care Prescriptions Ondansetron Hcl (ZOFRAN) 4 Mg Tab 4 MG PO Q8H Y for Nausea, #6 TAB Prov: Deon Vasquez M.D. 11/23/17 Forms IMPORTANT VISIT INFORMATION Patient Instructions ED Diet [place], ED Gastritis, ED Weakness [facility], Hypokalemia [place], [facility] Additional Instructions Please return to the emergency department if you have worsening or recurrent symptoms not amenable to at-home treatment. Please call for a follow-up appointment with her primary care physician. Please take your medications as prescribed. If you have other concerns and/or complaints please feel free to also call your primary care physician's office or return the ED for further evaluation, management, and treatment. You may take 400 mg Ibuprofen every 6 hours as needed for pain/fever with food unless told by your physician not to take NSAIDs. You may take tylenol 650 mg every 6 hours as needed for pain/fever unless told by your physician to not take it or have liver problems. You may take motrin and tylenol separately or at the same time. Take your medications as prescribed. Consider taking a Pepcid 20 mg twice daily. This may help with your GI upset. Please consider eating smaller meals. Please avoid things like spicy, citrus, peppermint, chocolate. Avoid lying down after meals. You have been examined and treated today on an emergency basis only. This is not a substitute for, or an effort to provide, complete comprehensive medical care. It is impossible to recognize and treat all injuries or illnesses in a single emergency department visit. It is therefore important that you follow up closely with [facility], your PCP, and/or your specialist(s). Call as soon as possible for an appointment. Thank you for your time and consideration. I look forward to speaking with you again soon. Please don't hesitate to call us if you have any questions. Problem Qualifiers Additional Impressions: Fatigue Fatigue type: unspecified Qualified Codes: R53.83 - Other fatigue
[2017-11-23 16:26] VITALS: O2SAT 96
[2017-11-23 16:26] LABS: BASO % 0.2 %; BASO ABS # 0.02 K/uL (0-0.2); EOS % 1.2 %; HEMATOCRIT 43.9 % (37-47); HEMOGLOBIN 15.2 g/dL (12.0-16.0); IG# 0.02 K/uL (0.00-0.02); LYMPH % 45.2 %; LYMPH ABS # 3.73 K/uL (1.2-3.4); MEAN CELL VOLUME 91.6 fL (80-100); MEAN CORPUSCULAR HEMOGLOBIN 31.7 pg (25-34); MEAN CORPUSCULAR HGB CONC 34.6 g/dl (32-36); MEAN PLATELET VOLUME 11.5 fL (7.4-10.4); MONO % 4.8 %; NEUT % 48.4 %; NEUT ABS # 3.98 K/uL (1.4-6.5); PLATELET COUNT 202 K/uL (130-400); RED CELL DISTRIBUTION WIDTH CV 12.7 % (11.5-14.5); RED CELL DISTRIBUTION WIDTH SD 42.4 fL (36.4-46.3); WHITE BLOOD COUNT 8.25 K/uL (4.8-10.8)
[2017-11-23 16:56] LABS: ALBUMIN 3.3 gm/dl (3.4-5.0); ALKALINE PHOSPHATASE 106 U/L (45-117); ALT/SGPT 30 U/L (12-78); AST/SGOT 30 U/L (15-37); BLOOD UREA NITROGEN 7 mg/dl (7-18); CALCIUM 9.3 mg/dl (8.5-10.1); CARBON DIOXIDE 26 mmol/L (21-32); CREATININE 0.76 mg/dl (0.60-1.20); GLUCOSE 157 mg/dl (70-99); LIPASE 157 U/L (73-393); POTASSIUM 3.3 mmol/L (3.5-5.1); SODIUM 140 mmol/L (136-145); TOTAL PROTEIN 7.3 gm/dl (6.4-8.2)
[2017-11-23] MEDS ORDERED: POTASSIUM CHLORIDE 20 MEQ TABCR PO STA (17:14)
--- NOTE | 2017-11-23 17:19 | DIAGNOSTIC IMAGING REPORT ---
CHEST ONE VIEW PORTABLE CLINICAL HISTORY: Weakness, palpitations COMPARISON STUDY: 04/09/2016 FINDINGS: The cardiac and mediastinal contours are normal. There is no evidence of focal pulmonary consolidation. There is no evidence of failure. No pleural effusions are visualized.[ Slight interstitial prominence is likely related to technical factors. Arthritic changes are present within the left shoulder. IMPRESSION: No active disease in the chest. Electronically signed by: Jared Rueda M.D. 11/23/2017 5:18 PM Dictated Date/Time: 11/23/2017 5:17 PM
[2017-11-23] MEDS ORDERED: ONDANSETRON INJ 2 MG/ML 2 ML VIAL IV STA (17:46)
[2017-11-23] MEDS ORDERED: GI COCKTAIL PO STA (17:46)
[2017-11-23] MEDS ORDERED: SODIUM CHLORIDE 0.9% 500ML 500 ML IV STA (17:46)
[2017-11-23] MEDS ORDERED: LIDOCAINE HCL 2% VISC SOLN 20 ML UDC ONE (17:54)
[2017-11-23] MEDS ORDERED: ALUMINUM/MAGNESIUM SUSP 30 ML UDC ONE (17:54)
[2017-11-23] MEDS ORDERED: FAMOTIDINE 20 MG TAB PO ONE (18:00)
[2017-11-23] MEDS ORDERED: ONDA4TAB46 PO (18:53)
[2017-11-23 19:29] VITALS: BP 159/73; PULSE 58; O2SAT 98
== END 2017-11-23 19:32 | disposition home or self-care (01) ==
LOC: EDBD 15:20 → C.EDB 15:21
DX: R53.1 Weakness (principal); R53.83 Other fatigue; E87.6 Hypokalemia; R10.13 Epigastric pain; R11.0 Nausea; R68.83 Chills (without fever); R03.0 Elevated blood-pressure reading, without diagnosis of hypertension; M19.90 Unspecified osteoarthritis, unspecified site; E11.9 Type 2 diabetes mellitus without complications; I10 Essential (primary) hypertension; K21.9 Gastro-esophageal reflux disease without esophagitis; R51 Headache; Z79.82 Long term (current) use of aspirin; Z79.899 Other long term (current) drug therapy; Z88.0 Allergy status to penicillin; Z91.018 Allergy to other foods; Z88.6 Allergy status to analgesic agent; Z88.7 Allergy status to serum and vaccine; Z88.8 Allergy status to other drugs, medicaments and biological substances; Z83.3 Family history of diabetes mellitus

== ENCOUNTER 2017-12-01 08:31 | Inpatient (IN) | payer OTHER ==
[~2017-12-01] VITALS: Ht 160 cm; Wt 107.6 kg
[2017-12-01] VITALS (10 sets, daily range): BP systolic 100–141; BP diastolic 60–81; PULSE 64–89; TEMP 36.7–37.5; O2SAT 90–100; BMI 41.3
[~2017-12-01 08:31] MED LIST changes: -CHOL100010 PO; +CHOL200010 PO; -CYAN100020 PO; +INSU1INJ33 SQ; +ONDA4TAB46 PO; -XRL10 PO
[2017-12-01] MEDS ORDERED: OMEP40CA41 PO (09:03)
--- NOTE | 2017-12-01 09:05 | EMERGENCY ROOM VISIT NOTE ---
History Report prepared by Blakeibmaki: Veronica Ricci Under the Supervision of: Dr. Kevin Bateman D.O. First contact with patient: 08:36 Chief Complaint: ABDOMINAL PAIN Stated Complaint: ABDOMINAL PAIN Nursing Triage Summary: pt presents to room b09 via als from home. pt reports she has had left abd pain nausea and vomitting for the past month and increased over the past week. pt reports she was seen in [facility] ED last week and seen by her pcp on tuesday. pt reports zofran rx at home is now out and was not helping. History of Present Illness The patient is a 62 year old female who presents to the Emergency Room with complaints of worsening left sided abdominal pain for the past 1 week. She was brought to the ED via ALS. Movement worsens her discomfort. Tylenol provides good pain relief. She reports she has experienced nausea and vomiting for the past month, but states her symptoms have worsened in the past 1 week. She was seen here in the ED last week and saw her PCP yesterday for her symptoms, who she states referred her to [facility], but she has not made an appointment yet. Zofran and Morphine given in the field have provided good relief for the nausea. The patient denies any chest pain or shortness of breath. She complains of the chills and diaphoresis but does not believe she's been febrile. She admits to "it being hard to pee" last night, but has not noticed any hematuria. She denies any back pain. She denies any previous history of kidney stones. The patient has previously undergone a hysterectomy and hernia repair surgery. 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 A total of 10 systems reviewed and were otherwise negative. Past Medical & Surgical Medical Problems: (1) Arthritis (2) DM type 2 (diabetes mellitus, type 2) (3) GERD (gastroesophageal reflux disease) (4) HTN (hypertension) (5) Left knee DJD (6) Neuropathy (7) Obesity, Class III, BMI 40-49.9 (morbid obesity) (8) Osteoarthritis (9) Right knee DJD (10) RLS (restless legs syndrome) Surgical Problems: (1) History of total left hip arthroplasty (2) S/P inguinal hernia repair (3) S/P partial thyroidectomy (4) S/P tonsillectomy (5) S/P total hysterectomy Family History Asthma MOTHER Diabetes mellitus MOTHER FH: cancer FATHER (lung CA) Hypertension SISTER Social History Smoking Status: Never Smoker Alcohol Use: none Drug Use: none Marital Status: Housing Status: lives with family Occupation Status: employed Current/Historical Medications Scheduled Aspirin (Aspirin Ec), 81 MG PO HS Atenolol (Tenormin), 25 MG PO BID Cephalexin Monohydrate (Keflex), 500 MG PO TID Cholecalciferol (Vitamin D), 2,000 UNITS PO QAM Cinnamon (Cinnamon), 1,000 MG PO BID Duloxetine HCl (Duloxetine HCl), 60 MG PO BID Fish Oil ([place]-3), 1 CAP PO HS Insulin Degludec (Tresiba Flextouch), 22 UNITS SQ HS Liraglutide (Victoza), 1.8 MG INJ QAM Multiple Vitamins W/ Minerals (One Daily For Women), 1 TAB PO QAM Nortriptyline (Pamelor), 25 MG PO HS Omeprazole (Prilosec), 40 MG PO QAM Pregabalin (Lyrica), 150 MG PO BID Topiramate (Topiramate), 1 CAP PO BID Scheduled PRN Hydrocodone/Acetaminophen 5MG/325MG ([place] 5MG/325MG), 1-2 TABLET PO q 6 hrs PRN for Pain Allergies Coded Allergies: Tetanus Toxoid (Verified Allergy, Severe, TROUBLE BREATHING, 12/01/17) Penicillins (Verified Allergy, Mild, ITCHINESS, 12/01/17) Onion (Unverified Allergy, Unknown, ? REACTION, ALLERGY SHOWN ON SKIN TEST , 12/01/17) [place] (Verified Allergy, Unknown, PATCH TESTED HIVES REACTION, 12/01/17) PT DOESN'T EAT Tomato (Verified Allergy, Unknown, COUGHING, 12/01/17) Morphine (Verified Adverse Reaction, Intermediate, Gets wild and has the shakes, 12/01/17) Meperidine (Verified Adverse Reaction, Mild, NAUSEA AND VOMITING, 12/01/17) Metformin (Verified Adverse Reaction, Mild, diarrhea, 12/01/17) Oxycodone (Verified Adverse Reaction, Mild, Nausea/Vomiting, 12/01/17) Physical Exam Vital Signs Date Time Temp Pulse Resp B/P (MAP) Pulse Ox O2 Delivery O2 Flow Rate FiO2 12/01/17 11:01 96 18 154/77 98 Room Air 12/01/17 09:23 78 18 135/65 99 Nasal Cannula 2.0 12/01/17 08:56 76 12/01/17 08:47 94 Nasal Cannula 2.0 12/01/17 08:46 88 Room Air 12/01/17 08:44 93 Room Air 12/01/17 08:39 37.0 76 18 115/60 93 Room Air Physical Exam GENERAL: Patient is awake, alert in no acute distress patient is resting comfortably and showing no signs of anxiety EYES: The conjunctivae are clear. The pupils are round and reactive. EARS, NOSE, MOUTH AND THROAT: The nose is without any evidence of any deformity. Mucous membranes are moist tongue is midline NECK: The neck is nontender and supple. RESPIRATORY: Normal respiratory effort is noted there is no evidence of wheezing rhonchi or rales CARDIOVASCULAR: Regular rate and rhythm noted, systolic murmur was suggested, there was no rubs or gallops normal S1 normal S2 GASTROINTESTINAL: The abdomen is moderately distended with diffuse tenderness in both lower quadrants. Bowel sounds are present in all quadrants. BACK: No midline tenderness or or step-off noted range of motion in flexion extension as well as rotation no signs of muscle spasm noted MUSCULOSKELETAL/EXTREMITIES: There is no evidence of gross deformity full range of motion is noted in the hips and shoulders SKIN: There is no obvious evidence of any rash. There are no petechiae, pallor or cyanosis noted. NEUROLOGIC: Patient is awake alert and oriented x3 Medical Decision & Procedures ER Provider Diagnostic Interpretation: Radiology results as stated below per my review and radiologist interpretation: CHEST ONE VIEW PORTABLE CLINICAL HISTORY: EVALUATE ALTERED MENTAL STATUS/WEAKNESS COMPARISON STUDY: Chest radiograph November 23, 2017. FINDINGS: Lung volumes are at the lower limits of normal. This is unchanged. Mild mediastinal widening is unchanged. Cardiac size is normal. There is no evidence for pulmonary edema. No consolidation is present. Appearance of the chest is unchanged. IMPRESSION: No acute cardiopulmonary findings. Electronically signed by: Sylvain Lane M.D. 12/01/2017 9:06 AM ABD/PELVIS NO IV OR ORAL CONT CT DOSE: 1033.35 mGycm HISTORY: Flank pain right flank pain TECHNIQUE: Multiaxial CT images of the abdomen and pelvis were performed without contrast. A dose lowering technique was utilized adhering to the principles of ALARA. COMPARISON STUDY: None. FINDINGS: Lung bases are clear. Liver spleen and pancreas are unremarkable. Gallbladder is mildly distended and contains a combination of sludge and gallstones. There is clinical possibly of a trace amount of air within the wall of the gallbladder fundus. Right upper quadrant ultrasonography is suggested. Kidneys are negative for calcification or hydronephrosis. The adrenal glands are normal. Bowel pattern is nonobstructive throughout. The appendix is normal. There has been a ventral hernia repair. The mesh is intact. No free fluid within the pelvic cul-de-sac. There has been a total left hip arthroplasty. IMPRESSION: 1. Moderate gallbladder distention with a combination of sludge and gallstones within the gallbladder lumen. 2. Subtle clinical evidence for air within the gallbladder wall at the gallbladder fundus. 3. Prior quadrant ultrasonography is suggested fluid in the possibility of cholecystitis or emphysematous cholecystitis. 4. Normal appendix. 5. Remainder of the study shows no acute abnormality. The above report was generated using voice recognition software. It may contain grammatical, syntax or spelling errors. Electronically signed by: Erlin Roy M.D. 12/01/2017 9:33 AM Laboratory Results 12/01/17 08:37 Red Blood Count 5.12, Mean Corpuscular Volume 91.4, Mean Corpuscular Hemoglobin 31.8, Mean Corpuscular Hemoglobin Concent 34.8, Mean Platelet Volume 11.7, Neutrophils (%) (Auto) 84.2, Lymphocytes (%) (Auto) 10.9, Monocytes (%) (Auto) 4.4, Eosinophils (%) (Auto) 0.1, Basophils (%) (Auto) 0.1, Neutrophils # (Auto) 14.00, Lymphocytes # (Auto) 1.81, Monocytes # (Auto) 0.73, Eosinophils # (Auto) 0.01, Basophils # (Auto) 0.01 12/01/17 08:37 Test 12/01/17 08:37 White Blood Count 16.61 K/uL (4.8-10.8) Red Blood Count 5.12 M/uL (4.2-5.4) Hemoglobin 16.3 g/dL (12.0-16.0) Hematocrit 46.8 % (37-47) Mean Corpuscular Volume 91.4 fL (80-100) Mean Corpuscular Hemoglobin 31.8 pg (25-34) Mean Corpuscular Hemoglobin Concent 34.8 g/dl (32-36) Platelet Count 218 K/uL (130-400) Mean Platelet Volume 11.7 fL (7.4-10.4) Neutrophils (%) (Auto) 84.2 % Lymphocytes (%) (Auto) 10.9 % Monocytes (%) (Auto) 4.4 % Eosinophils (%) (Auto) 0.1 % Basophils (%) (Auto) 0.1 % Neutrophils # (Auto) 14.00 K/uL (1.4-6.5) Lymphocytes # (Auto) 1.81 K/uL (1.2-3.4) Monocytes # (Auto) 0.73 K/uL (0.11-0.59) Eosinophils # (Auto) 0.01 K/uL (0-0.5) Basophils # (Auto) 0.01 K/uL (0-0.2) RDW Standard Deviation 42.4 fL (36.4-46.3) RDW Coefficient of Variation 12.7 % (11.5-14.5) Immature Granulocyte % (Auto) 0.3 % Immature Granulocyte # (Auto) 0.05 K/uL (0.00-0.02) Prothrombin Time 11.0 SECONDS (9.0-12.0) Prothromb Time International Ratio 1.0 (0.9-1.1) Activated Partial Thromboplast Time 25.1 SECONDS (21.0-31.0) Partial Thromboplastin Ratio 1.0 Anion Gap 10.0 mmol/L (3-11) Est Creatinine Clear Calc Drug Dose 97.0 ml/min Estimated GFR () 107.6 Estimated GFR (Non- 92.9 BUN/Creatinine Ratio 20.0 (10-20) Calcium Level 9.0 mg/dl (8.5-10.1) Magnesium Level 1.8 mg/dl (1.8-2.4) Total Bilirubin 0.7 mg/dl (0.2-1) Direct Bilirubin 0.2 mg/dl (0-0.2) Aspartate Amino Transf (AST/SGOT) 16 U/L (15-37) Alanine Aminotransferase (ALT/SGPT) 24 U/L (12-78) Alkaline Phosphatase 102 U/L (45-117) Troponin I < 0.015 ng/ml (0-0.045) Total Protein 7.4 gm/dl (6.4-8.2) Albumin 3.5 gm/dl (3.4-5.0) Lipase 157 U/L (73-393) Thyroid Stimulating Hormone (TSH) 1.480 uIu/ml (0.300-4.500) Laboratory results per my review. Medications Administered Medications (Trade) Dose Ordered Sig/Amalia Route Start Time Stop Time Status Last Admin Dose Admin Ondansetron HCl (Zofran Inj) 4 mg NOW STAT IV 12/01/17 09:22 12/01/17 09:23 DC 12/01/17 09:26 4 MG Cefoxitin Sodium (Mefoxin 2000mg/ 60 ml D5W) 2,000 mg NOW STAT IV 12/01/17 10:04 12/01/17 10:06 DC 12/01/17 11:01 2,000 MG Metronidazole (Flagyl / Nss) 500 mg NOW STAT IV 12/01/17 10:04 12/01/17 10:06 DC 12/01/17 10:09 500 MG Bupivacaine HCl (Marcaine 0.5% MPF Inj) 30 ml STK-MED ONCE .ROUTE 12/01/17 11:20 12/01/17 11:21 DC 12/01/17 11:20 10 ML ED Course 0847: The patient was evaluated in room B9. A complete history and physical examination were performed. 0922: Zofran 4 mg IV. 1004: Flagyl 500 mg IV, Cefoxitin Sodium 2000 mg IV. 1012: I discussed the patients case with Dr. Isabel, [facility] General Surgery. The patient will be further evaluated. 1015: I updated the patient on my conversation with Dr. Isabel. She verbalized complete understanding and agreement. 1023: Nursing informed me the patient feels nauseous. I will place orders. 1112: Fentanyl 100 mcg IV. Medical Decision Prior records/ancillary studies reviewed. Triage Nursing notes reviewed. The patient's history was concerning for abdominal pain. Differential diagnosis: Etiologies such as appendicitis, diverticulitis, PUD, biliary pathology, UTI, pancreatitis, obstruction, mesenteric ischemia, aortic pathology, infections, inflammatory bowel disease, renal colic, as well as others were entertained. The patient is a 62-year-old female who presented to the emergency department for an evaluation of nausea and vomiting. The patient was found to have abdominal pain on physical exam. CAT scan revealed signs of cholecystitis. I discussed patient's laboratory and radiographic studies with her. I discussed her case with the on-call general surgeon. They have agreed to evaluate the patient in the emergency department for further management and disposition. The patient was treated with IV fluids and IV anti-medics. She received IV pain medication prior to arrival via medic command. The patient also received IV antibiotics. Medication Reconcilliation Current Medication List: was personally reviewed by me Blood Pressure Screening Patient's blood pressure: Normal blood pressure Blood pressure disposition: Did not require urgent referral Consults Time Called: 1010 Consulting Physician: Dr. Isabel, [facility] Surgery Returned Call: 1012 I discussed the patients case with Dr. Isabel, [facility] General Surgery. The patient will be further evaluated. Impression Primary Impression: Cholecystitis Additional Impression: Right sided abdominal pain Scribe Attestation The scribe's documentation has been prepared under my direction and personally reviewed by me in its entirety. I confirm that the note above accurately reflects all work, treatment, procedures, and medical decision making performed by me. Departure Information Dispostion Being Evaluated By Surgeon Prescriptions Cephalexin Monohydrate (KEFLEX) 500 Mg Cap 500 MG PO TID, #15 CAP Prov: Grant Isabel M.D. 12/01/17 Hydrocodone/Acetaminophen 5MG/325MG ([place] 5MG/325MG) Tab 1-2 TABLET PO q 6 hrs Y for Pain, #30 TAB PRN PAIN Prov: Grant Isabel M.D. 12/01/17 Referrals No Doctor, Assigned (PCP) Patient Instructions My [facility] Problem Qualifiers
[2017-12-01 09:07] LABS: BASO % 0.1 %; BASO ABS # 0.01 K/uL (0-0.2); EOS % 0.1 %; EOS ABS # 0.01 K/uL (0-0.5); HEMATOCRIT 46.8 % (37-47); HEMOGLOBIN 16.3 g/dL (12.0-16.0); IG# 0.05 K/uL (0.00-0.02); LYMPH % 10.9 %; LYMPH ABS # 1.81 K/uL (1.2-3.4); MEAN CELL VOLUME 91.4 fL (80-100); MEAN CORPUSCULAR HEMOGLOBIN 31.8 pg (25-34); MEAN CORPUSCULAR HGB CONC 34.8 g/dl (32-36); MEAN PLATELET VOLUME 11.7 fL (7.4-10.4); MONO % 4.4 %; MONO ABS # 0.73 K/uL (0.11-0.59); NEUT % 84.2 %; PLATELET COUNT 218 K/uL (130-400); RED CELL DISTRIBUTION WIDTH CV 12.7 % (11.5-14.5); RED CELL DISTRIBUTION WIDTH SD 42.4 fL (36.4-46.3); WHITE BLOOD COUNT 16.61 K/uL (4.8-10.8)
[2017-12-01 09:18] LABS: PTT PATIENT 25.1 SECONDS (21.0-31.0)
[2017-12-01] MEDS ORDERED: ONDANSETRON INJ 2 MG/ML 2 ML VIAL IV STA (09:22)
[2017-12-01 09:25] LABS: ALBUMIN 3.5 gm/dl (3.4-5.0); ALT/SGPT 24 U/L (12-78); AST/SGOT 16 U/L (15-37); BLOOD UREA NITROGEN 14 mg/dl (7-18); CARBON DIOXIDE 24 mmol/L (21-32); GLUCOSE 199 mg/dl (70-99); LIPASE 157 U/L (73-393); POTASSIUM 3.1 mmol/L (3.5-5.1); SODIUM 138 mmol/L (136-145)
--- NOTE | 2017-12-01 09:34 | DIAGNOSTIC IMAGING REPORT ---
ABD/PELVIS NO IV OR ORAL CONT CT DOSE: 1033.35 mGycm HISTORY: Flank pain right flank pain TECHNIQUE: Multiaxial CT images of the abdomen and pelvis were performed without contrast. A dose lowering technique was utilized adhering to the principles of ALARA. COMPARISON STUDY: None. FINDINGS: Lung bases are clear. Liver spleen and pancreas are unremarkable. Gallbladder is mildly distended and contains a combination of sludge and gallstones. There is clinical possibly of a trace amount of air within the wall of the gallbladder fundus. Right upper quadrant ultrasonography is suggested. Kidneys are negative for calcification or hydronephrosis. The adrenal glands are normal. Bowel pattern is nonobstructive throughout. The appendix is normal. There has been a ventral hernia repair. The mesh is intact. No free fluid within the pelvic cul-de-sac. There has been a total left hip arthroplasty. IMPRESSION: 1. Moderate gallbladder distention with a combination of sludge and gallstones within the gallbladder lumen. 2. Subtle clinical evidence for air within the gallbladder wall at the gallbladder fundus. 3. Prior quadrant ultrasonography is suggested fluid in the possibility of cholecystitis or emphysematous cholecystitis. 4. Normal appendix. 5. Remainder of the study shows no acute abnormality. The above report was generated using voice recognition software. It may contain grammatical, syntax or spelling errors. Electronically signed by: Erlin Roy M.D. 12/01/2017 9:33 AM Dictated Date/Time: 12/01/2017 9:29 AM
[2017-12-01 09:36] LABS: ALKALINE PHOSPHATASE 102 U/L (45-117); TOTAL PROTEIN 7.4 gm/dl (6.4-8.2)
[2017-12-01] MEDS ORDERED: METRONIDAZOLE 500MG / 100ML NSS IV STA (10:04)
[2017-12-01] MEDS ORDERED: CEFOXITIN 2000MG/60 ML D5W IV STA (10:04)
--- NOTE | 2017-12-01 10:57 | History and Physical ---
History & Physical Date December 01, 2017. History of Present Illness The patient is a 62 year old female with complaints of abd pain , N/V CT evidence of acute cholecystitis, elev WBC Past Medical/Surgical History Medical Problems: (1) Arthritis (2) DM type 2 (diabetes mellitus, type 2) (3) GERD (gastroesophageal reflux disease) (4) HTN (hypertension) (5) Left knee DJD (6) Neuropathy (7) Obesity, Class III, BMI 40-49.9 (morbid obesity) (8) Osteoarthritis (9) Right knee DJD (10) RLS (restless legs syndrome) Surgical Problems: (1) History of total left hip arthroplasty (2) S/P inguinal hernia repair (3) S/P partial thyroidectomy (4) S/P tonsillectomy (5) S/P total hysterectomy Additional History Hepatic Disease: No Endocrine Disorder: Yes Kidney Disease: No Hypertension: Yes Bleeding Tendencies: No Infectious Diseases: No Allergies Coded Allergies: Tetanus Toxoid (Verified Allergy, Severe, TROUBLE BREATHING, 12/01/17) Penicillins (Verified Allergy, Mild, ITCHINESS, 12/01/17) Onion (Unverified Allergy, Unknown, ? REACTION, ALLERGY SHOWN ON SKIN TEST , 12/01/17) [place] (Verified Allergy, Unknown, PATCH TESTED HIVES REACTION, 12/01/17) PT DOESN'T EAT Tomato (Verified Allergy, Unknown, COUGHING, 12/01/17) Morphine (Verified Adverse Reaction, Intermediate, Gets wild and has the shakes, 12/01/17) Meperidine (Verified Adverse Reaction, Mild, NAUSEA AND VOMITING, 12/01/17) Metformin (Verified Adverse Reaction, Mild, diarrhea, 12/01/17) Oxycodone (Verified Adverse Reaction, Mild, Nausea/Vomiting, 12/01/17) Home Medications Scheduled Aspirin (Aspirin Ec), 81 MG PO HS Atenolol (Tenormin), 25 MG PO BID Cholecalciferol (Vitamin D), 2,000 UNITS PO QAM Cinnamon (Cinnamon), 1,000 MG PO BID Duloxetine HCl (Duloxetine HCl), 60 MG PO BID Fish Oil ([place]-3), 1 CAP PO HS Insulin Degludec (Tresiba Flextouch), 22 UNITS SQ HS Liraglutide (Victoza), 1.8 MG INJ QAM Multiple Vitamins W/ Minerals (One Daily For Women), 1 TAB PO QAM Nortriptyline (Pamelor), 25 MG PO HS Omeprazole (Prilosec), 40 MG PO QAM Pregabalin (Lyrica), 150 MG PO BID Topiramate (Topiramate), 1 CAP PO BID Physical Examination Skin: warm/dry, no rash Eyes: sclerae normal Neck: supple Respiratory/Chest: no respiratory distress Cardiovascular: regular rate, rhythm Abdomen / GI: + pertinent finding (RUQ tenderness) Extremities: normal inspection Neurologic/Psych: alert Diagnosis Acute cholecystitis Plan of Treatment For laparoscopic cholecystectomy , possible open operation IV atbx, medical consult postop
[2017-12-01] MEDS ORDERED: FENTANYL CITRATE INJ 50 MCG/1 ML 2 ML VIAL ONE ×2 (11:12→12:29)
[2017-12-01] MEDS ORDERED: BUPIVACAINE 0.5 % 5 MG/1 ML MPF 30ML VIAL ONE (11:20)
--- NOTE | 2017-12-01 11:28 | History and Physical ---
History & Physical Date of Service December 01, 2017. History & Physical consult done, [id number] use Tresiba by half home dose at 11 unit HS, has ordered aspart ISS, and requested pharmacy hyperglycemic control..
[2017-12-01] MEDS ORDERED: HydrALAZINE HCL 20 MG/ML VIAL IV. PRN (11:30)
[2017-12-01] MEDS ORDERED: PHARMACY GLYCEMIC MGMT CONSULT PRN (12:00)
[2017-12-01] MEDS ORDERED: ONDANSETRON INJ 2 MG/ML 2 ML VIAL ONE (12:55)
[2017-12-01] MEDS ORDERED: SUCCINYLCHOLINE CHLORIDE 20 MG/ML 10 ML VIAL IV ONE (12:55)
[2017-12-01] MEDS ORDERED: PROPOFOL IV EMULSION 10 MG/ML 20 ML VIAL ONE (12:55)
[2017-12-01] MEDS ORDERED: LIDOCAINE HCL 2% 2 ML VIAL (20MG/ML) ONE (12:55)
[2017-12-01] MEDS ORDERED: ROCURONIUM BROMIDE 10 MG/ML 5 ML VIAL ONE (12:55)
[2017-12-01] MEDS ORDERED: GLYCOPYRROLATE INJ 0.2 MG/ML VIAL ONE (12:57)
[2017-12-01] MEDS ORDERED: NEOSTIGMINE METHYLSULFATE 5 MG/5 ML SYR ONE (12:57)
--- NOTE | 2017-12-01 13:01 | [facility] Operative Report ---
Operative Report Operative Date December 01, 2017. Pre-Operative Diagnosis Acute cholecystitis Post-Operative Diagnosis Acute cholecystitis, chronic disease and adhesions Procedure(s) Performed laparoscopic cholecystectomy Surgeon Dr. Isabel Engineering Design Manager Surgeon(s) Francia Cohen Estimated Blood Loss 20 ML Findings adhesions to gb and chronic inflammation, sludge, stones Specimens A: Gallbladder and contents Drains #[address] [place]ONNIE Anesthesia Type General Complication(s) none Disposition Recovery Room / PACU I attest to the content of the Intraoperative Record and any orders documented therein. Any exceptions are noted below.
--- NOTE | 2017-12-01 13:14 | Pharmacy Progress Note ---
Glycemic Control Intl Consult Date of Service December 01, 2017. Scope Glycemic Pharmacist consulted by Dr Cervantes on 12/01/17 for glycemic control and to write orders per [facility] inpatient glycemic control protocol Objective Weight (Kilograms): 105.700 Accuchecks BSG (last 24hrs): Test 12/01/17 08:37 Random Glucose 199 mg/dl (70-99) Laboratory Data (last 24hrs) Test 12/01/17 08:37 Anion Gap 10.0 mmol/L BUN/Creatinine Ratio 20.0 Blood Urea Nitrogen 14 mg/dl Creatinine 0.70 mg/dl Potassium Level 3.1 mmol/L Sodium Level 138 mmol/L White Blood Count 16.61 K/uL Red Blood Count 5.12 M/uL Hemoglobin 16.3 g/dL Hematocrit 46.8 % Mean Corpuscular Volume 91.4 fL Mean Corpuscular Hemoglobin 31.8 pg Mean Corpuscular Hemoglobin Concent 34.8 g/dl Platelet Count 218 K/uL Mean Platelet Volume 11.7 fL Neutrophils (%) (Auto) 84.2 % Lymphocytes (%) (Auto) 10.9 % Monocytes (%) (Auto) 4.4 % Eosinophils (%) (Auto) 0.1 % Basophils (%) (Auto) 0.1 % Neutrophils # (Auto) 14.00 K/uL Lymphocytes # (Auto) 1.81 K/uL Monocytes # (Auto) 0.73 K/uL Eosinophils # (Auto) 0.01 K/uL Basophils # (Auto) 0.01 K/uL Recent Pertinent Medications Outpatient Anti-diabetic Regimen: Follows w/ [facility] Endo. Patient tried metformin initially but was intolerant. Has been taking Victoza for awhile and basal insulin was just recently added. Notes indicate that mealtime insulin may need added in the future. * Tresiba 22 units qHS (titrating up by 2 units every 4 days) - Lantus was noted in last visit in [employer] but this must have been changed recently * Victoza 1.8 mg qAM * Also takes cinnamon * A1c = 10.9 % 10/21/17 Risk Factors for Insulin Resistance: * Recent Surgery: in surgery now for lap flower Assessment & Plan ASSESSMENT: * 62 y/o female with a history of type 2 diabetes, admitted for cholecystitis * History of outpatient diabetes management as noted above * For inpatient diabetes management, will plan to use basal/bolus insulin regimen using Lantus + Novolog * With her A1c so high and using Victoza in addition to basal as an outpatient, will plan to continue the same basal dose and add CF/CR using patient's weight/ stress 2 initially PLAN FOR INPATIENT GLYCEMIC CONTROL: * Basal insulin with LANTUS 22 units qHS - start as soon as patient out of surgery since her last dose was on 11/29 * Correctional Insulin with NOVOLOG per scale ACHS or Q6hrs while NPO * Goal Range: Low 120 mg/dL - High 150 mg/dL * Correction Factor: 20 mg/dL/unit * Nutritional / Prandial insulin per carb ratio of 1 unit per 7 grams CHO consumed Discharge recommendations: * Follows closely w/ [facility] endo. Recommend continued close f/u. Sounds like they already plan to add prandial insulin in the future if necessary. Thank you.
[2017-12-01] MEDS ORDERED: HYDROmorphone INJ 2 MG/ML SYR/VIAL IV PRN (13:15)
[2017-12-01] MEDS ORDERED: PROMETHAZINE HCL INJ 25 MG in SODIUM CHLORIDE 0.9% 50ML 50 ML IV PRN (13:15)
[2017-12-01] MEDS ORDERED: HYDROCODONE/ACETAMIN 5/325MG TAB PO PRN ×2 (13:15)
[2017-12-01] MEDS ORDERED: HYDROmorphone INJ 0.5 MG/0.5 ML SYR IV PRN (13:15)
--- NOTE | 2017-12-01 13:20 | Discharge Instructions ---
Discharge Instructions Date of Service December 01, 2017. Admission Reason for Admission: Abdominal Pain Discharge Discharge Diagnosis / Problem: acute/chronic cholecystitis w/ adhesions Discharge Goals Goal(s): Decrease discomfort, Improve function, Improve disease control Activity Recommendations Activity Limitations: as noted below Lifting Limitations: no more than 25 pounds (for 3 weeks) Exercise/Sports Limitations: until after follow-up appointment May Resume Sexual Activity: when tolerated Shower/Bathe: tomorrow Driving or Machine Use: one week from surgery . Instructions / Follow-Up Instructions / Follow-Up SPECIAL CARE INSTRUCTIONS: * Cover incisions and change daily for comfort/drainage. * Empty drain 2-3 times per day and record. * May use ibuprofen for pain as tolerated. * Expect some swelling and bruising. Call your doctor if: * Temperature above 101 degrees * Pain not relieved by pain medicine ordered * There is increased drainage or redness from any incision * You have any unanswered questions or concerns [phone]. FOLLOW UP VISIT: If not already scheduled, please call the office for a follow-up visit. for next week- some suture removal and drain removal (Tue/or Tue ) OFFICE PHONE NUMBER: Dr. Isabel Office Current Hospital Diet Patient's current hospital diet: Diabetes Type 2 Diet Discharge Diet Recommended Diet: Diabetes Type 2 Diet Procedures Procedures Performed: laparoscopic cholecystectomy Pending Studies Studies pending at discharge: no Laboratory Results Hemoglobin A1c Test 10/21/17 13:33 Range/Units Estimated Average Glucose 266 mg/dl Hemoglobin A1c 10.9 H 4.5-5.6 % Lipid Panel Test 10/21/17 13:33 Range/Units Triglycerides Level 346 H 0-150 mg/dl Cholesterol Level 181 0-200 mg/dl HDL Cholesterol 40 mg/dl Cholesterol/HDL Ratio 4.5 LDL Cholesterol, Calculated 72 mg/dl Medical Emergencies . Who to Call and When: Medical Emergencies: If at any time you feel your situation is an emergency, please call 911 immediately. . Non-Emergent Contact Non-Emergency issues call your: Primary Care Provider, Surgeon . "Provider Documentation" section prepared by Grant Isabel. .
[2017-12-01] MEDS ORDERED: HYDR-5688 PO (13:22)
[2017-12-01] MEDS ORDERED: CEPH500C2 PO (13:22)
[2017-12-01] MEDS ORDERED: FLUMAZENIL 0.1 MG/1 ML 10 ML VIAL IV PRN (13:45)
[2017-12-01] MEDS ORDERED: LABETALOL HCL IV 5 MG/ML 20ML IV PRN (13:45)
[2017-12-01] MEDS ORDERED: ONDANSETRON INJ 2 MG/ML 2 ML VIAL IV PRN (13:45)
[2017-12-01] MEDS ORDERED: EpHEDrine SULFATE INJ 50 MG/ML AMP IV PRN (13:45)
[2017-12-01] MEDS ORDERED: NALOXONE HCL 0.4 MG/1 ML VIAL/CARP IV PRN (13:45)
[2017-12-01] MEDS ORDERED: PROMETHAZINE HCL INJ 12.5 MG in SODIUM CHLORIDE 0.9% 50ML 50 ML IV PRN (13:45)
[2017-12-01] MEDS ORDERED: ATROPINE SULFATE 0.1 MG/ML 5ML SYR IV PRN (13:45)
[2017-12-01] MEDS ORDERED: FENTANYL CITRATE INJ 50 MCG/1 ML 2 ML VIAL IV PRN (13:45)
--- NOTE | 2017-12-01 14:18 | OPERATIVE REPORT ---
DATE OF OPERATION: 12/01/2017 NAME OF OPERATION: Laparoscopic cholecystectomy with lysis of adhesions. PREOPERATIVE DIAGNOSIS: Acute cholecystitis. POSTOPERATIVE DIAGNOSIS: Same with chronic cholecystitis and adhesions. STAFF SURGEON: Grant Isabel MD INTENSIVE CARE MEDICINE SPECIALIST: Francia Mena PA-C ANESTHESIA: General. PROCEDURE: The patient was brought in the operating room and placed on the operating table in supine position. Her abdomen was prepped and draped in usual fashion. Pneumatic stockings, orogastric tube were placed. The patient was morbidly obese. Incision was made relatively high above the umbilicus secondary to placement of prior mesh in the umbilical area. Dissection was carried down to the fascia, placing a Veress needle producing pneumoperitoneum. Initially a 5 mm port was placed and then replaced by 11 mm port. The omentum was adherent to the area of the mesh. Under observation, the gallbladder was distended and there were adhesions of the omentum just over the colon to the gallbladder. Three 5 mm ports were placed under visualization, 1 cephalad and 2 laterally. At this point, the omentum was retracted as well as the gallbladder. The gallbladder aspirated bile to decompress and make the retraction easier. Using both sharp and blunt technique, the omentum was taken down away from the gallbladder. The patient had evidence of chronic adhesions and chronic inflammation in the linus hepatis consistent with chronic cholecystitis. Cystic duct was identified, it was clipped and transected. The cystic artery then identified, clipped and transected and the gallbladder dissected away from the liver bed, going through chronic scar tissue. The patient had evidence of sludge in the gallbladder also and stones. Gallbladder was placed in an Endobag. After appropriate irrigation and hemostasis, a #15 round Ed-Cain drain was placed through the lateral 5 mm port site, placed into the subhepatic space, secured to the skin using 3-0 nylon suture. The drain was clamped. At this point, the gallbladder with the Endobag was removed through the umbilical site. I did make the fascial defect larger secondary to stones and sludge. The fascia was then reapproximated at the umbilicus using 0 PDS suture and then the skin was reapproximated all incisions using 4-0 nylon suture. Dressings applied and patient transferred to recovery room in stable condition. I attest to the content of the Intraoperative Record and any orders documented therein. Any exception s are noted below.
--- NOTE | 2017-12-01 14:29 | Anesthesiology Progress Note ---
Anesthesia Post Op Note Date & Time December 01, 2017 at 14:28 Vital Signs Pain Intensity: 1 Vital Signs Past 12 Hours Date Time Temp Pulse Resp B/P (MAP) Pulse Ox O2 Delivery O2 Flow Rate FiO2 12/01/17 14:17 69 20 12/01/17 14:17 68 20 100 12/01/17 14:16 124/57 12/01/17 14:12 70 19 99 12/01/17 14:12 68 19 12/01/17 14:11 126/52 12/01/17 14:07 64 18 12/01/17 14:07 63 18 100 12/01/17 14:06 116/47 12/01/17 14:02 66 18 100 12/01/17 14:02 68 18 12/01/17 14:01 36.5 132/51 12/01/17 14:00 64 19 99 12/01/17 14:00 65 19 12/01/17 13:56 136/55 12/01/17 13:55 64 18 99 12/01/17 13:55 64 18 12/01/17 13:51 120/54 12/01/17 13:50 61 18 12/01/17 13:50 61 18 100 12/01/17 13:46 130/57 12/01/17 13:45 68 18 99 12/01/17 13:45 66 18 12/01/17 13:41 132/56 12/01/17 13:40 63 16 12/01/17 13:40 65 16 98 12/01/17 13:36 124/56 12/01/17 13:35 65 17 99 12/01/17 13:35 63 17 12/01/17 13:31 116/51 12/01/17 13:30 64 15 99 12/01/17 13:30 65 15 12/01/17 13:26 118/48 12/01/17 13:25 61 17 12/01/17 13:25 62 17 100 12/01/17 13:20 36.2 66 16 115/50 98 Oxymask 7 12/01/17 11:01 96 18 154/77 98 Room Air 12/01/17 09:23 78 18 135/65 99 Nasal Cannula 2.0 12/01/17 08:56 76 12/01/17 08:47 94 Nasal Cannula 2.0 12/01/17 08:46 88 Room Air 12/01/17 08:44 93 Room Air 12/01/17 08:39 37.0 76 18 115/60 93 Room Air Notes Mental Status: alert / awake / arousable, participated in evaluation Pt Amnestic to Procedure: Yes Nausea / Vomiting: adequately controlled Pain: adequately controlled Airway Patency, RR, SpO2: stable & adequate BP & HR: stable & adequate Hydration State: stable & adequate Anesthetic Complications: no major complications apparent
--- NOTE | 2017-12-01 14:40 | HISTORY & PHYSICAL EXAMINATION ---
DATE OF ADMISSION: 12/01/2017 PHYSICIAN REQUESTING FOR CONSULTATION: Grant Isabel MD REASON FOR CONSULTATION: Medical management postop. HISTORY OF PRESENT ILLNESS: Patient is a 62-year-old white female with a significant past medical history of type 2 diabetic neuropathy, GERD, hypertension, obesity, osteoarthritis, restless leg syndrome, is admitted to Dr. Isabel's service because of acute cholecystitis. Patient is seen and evaluated by Dr. Isabel, is going to operation room. Dr. Isabel asked me postop evaluations and treatment. When I examined the patient, she reported abdominal pain localized in upper abdomen and right upper quadrant of the abdomen associated with nausea, vomiting. CT studies in the Emergency Room shows acute cholecystitis associated with leukocytosis. Patient denied chest pain, palpitations, lower extremity swelling, denied cough, sputum, shortness of breath, denied dysuria, urgency and frequencies, denied skin rashes, denied facial droop, slurring speeches or local weakness. PAST MEDICAL HISTORY: Like I mentioned in the above include arthritis, diabetic type 2, GERD, hypertension, knee degenerative joint disease, diabetic neuropathy, obesity, BMI 41. SURGICAL HISTORY: Include: 1. Anterior hernia repairing. 2. S/P partial thyroidectomy. 3. Tonsillectomy. 4. Total hysterectomy. 5. Bilateral knee surgeries. 6. Left hip arthroplasty. ALLERGIES: MEPERIDINE, METFORMIN, MORPHINE, ONION, ORANGE, OXYCODONE, PENICILLIN, TETANUS TOXOID, TOMATO. SOCIAL HISTORY: Denied tobacco abuse disorder. Denied alcohol abuse disorder. Denied illicit drug abuse. FAMILY HISTORY: Noncontributory. MEDICATIONS: Taking at home include aspirin 81 mg p.o. at bedtime, atenolol 25 mg p.o. b.i.d., vitamin D 2000 International Units p.o. q.a.m., cinnamon 1000 mg p.o. b.i.d., Duloxetine 60 mg p.o. b.i.d., fish oil 1 cap p.o. at bedtime, insulin degludec 22 units subQ at bedtime, Victoza 1.8 mg injection q.a.m., multiple vitamin 1 tab p.o. daily, nortriptyline 25 mg p.o. at bedtime, Prilosec 40 mg p.o. q.a.m., Lyrica 150 mg p.o. b.id topiramate,1 cap p.o. b.i.d. PHYSICAL EXAMINATION: VITAL SIGNS: Temperature is 37, pulse 76, respiration 18, blood pressure 115/60, pulse ox was 93% in room air. GENERAL: Patient is a white female, awake, alert, orientated, conversational, follows all commands. HEAD: Normocephalic. EYES: Pupils are equal, round, responds to the light. EARS: Ear was normal. NOSE: Normal. NECK: Supple. Thyroid no enlargement. Trachea midline. HEART: Regular rhythm. S1, S2. LUNGS: Decreased breathing sounds. There was no wheezing, rhonchi and crackles. ABDOMEN: Soft, however, upper abdomen and right upper quadrant, deep tender and mild rebounds. There was no guarding, no rigidities. No organomegaly. GENITOURINARY AND RECTAL: Deferred. EXTREMITIES: Bilateral CVA was nontender. Bilateral lower extremity, no swelling. Homans sign was negative. Calf was nontender. There was no clubbing, no cyanosis, no edema. NEUROLOGICAL EVALUATION: Cranial nerves II-XII was intact. There was no deficits. LABORATORY STUDIES: WBC 16, neutrophil 84%, hemoglobin 16, platelet 218. PT/INR was 11/1. Sodium 138, potassium 3.1. BUN 14, creatinine 0.4. Calcium 9. Total bilirubin 0.7, direct bilirubin 0.2, AST 16, ALT 24. Alkaline phosphate 102. Troponin less than 0.015. TSH was normal 1.48. IMAGING STUDIES: Include chest x-ray, no acute cardiopulmonary disease. Abdominal CT studies, which shows moderate gallbladder distention with combination of sludge and gallstones within the gallbladder lumen. ASSESSMENT AND PLAN: 1. Acute cholecystitis with leukocytosis. This will be managed by primary team, Dr. Isabel. I heard she is going to operation room today for cholecystectomy. In bedside, I discussed with patient and . Patient is in the average to high risk for cardiopulmonary complications for the procedure. Patient understands and agreed to take all the risk by themselves. 2. Hypokalemia. Potassium 3.[address] Isabel need to pay attention of this before the procedure. At the same time, can continue and add with some potassium in the IV fluid. 3. History of diabetic, hypertension, patient currently is n.p.o., I will start insulin sliding scales, will request pharmacist to consult for diabetic blood glucose, will give hydralazine as needed for accelerated hypertension. I will start on the home medication after patient able to take p.o. such as aspirin, atenolol, Cymbalta, nortriptyline and Lyrica. I will order Protonix IV daily. 4. Deep venous thrombosis prophylaxis will be per Dr. Isabel. 5. Discharge plan, PT, OT, pain control will be per primary team. Thank you for the chance to involve the care of the patient. We will continue to follow up. CORTEZ
[2017-12-01] MEDS ORDERED: DEXTROSE 50% 50 ML SYR IV PRN (15:15)
[2017-12-01] MEDS ORDERED: GLUCOSE 40% GEL 15 GM TUBE PO PRN (15:15)
[2017-12-01] MEDS ORDERED: GLUCOSE 10 TABS/TUBE PO PRN (15:15)
[2017-12-01] MEDS ORDERED: CARBOHYDRATES FOR HYPOGLYCEMIA PO PRN (15:15)
[2017-12-01] MEDS ORDERED: GLUCAGON FOR INJ 1 MG VIAL IM PRN (15:15)
[2017-12-01] MEDS: LACTATED RINGER'S 1000ML 1,000 ML IV SCH (15:58)
[2017-12-01] MEDS: INSULIN GLARGINE SOLOSTAR 100 UNITS/ML 3 ML PEN SC SCH (16:00)
[2017-12-01] MEDS: CEFOXITIN IV 2,000 MG in DEXTROSE 5% 50ML 50 ML IV SCH ×2 (18:11→20:24)
[2017-12-01] MEDS: INSULIN ASPART 100 UNITS/ML 3 ML PEN SC SCH ×2 (18:11→21:12)
[2017-12-01] MEDS ORDERED: NURSING VERBAL MED ORDER ONE (20:30)
[2017-12-01] MEDS: NORTRIPTYLINE HCL 25 MG CAP PO SCH (21:12)
[2017-12-01] MEDS: DULOXETINE HCL 60 MG CAP PO SCH (21:12)
[2017-12-01] MEDS: ONDANSETRON INJ 2 MG/ML 2 ML VIAL IV PRN (21:13)
[2017-12-01] MEDS: PREGABALIN 150 MG CAP PO SCH (21:13)
[2017-12-01] MEDS: ASPIRIN 81 MG ECTAB PO SCH (21:13)
[2017-12-02] VITALS (12 sets, daily range): BP systolic 85–131; BP diastolic 50–79; PULSE 54–102; TEMP 36.6–37.3; O2SAT 83–97; Ht 160 cm; Wt 107.6 kg
[2017-12-02] MEDS: LACTATED RINGER'S 1000ML 1,000 ML IV SCH (03:54)
[2017-12-02] MEDS: CEFOXITIN IV 2,000 MG in DEXTROSE 5% 50ML 50 ML IV SCH ×3 (04:33→21:13)
[2017-12-02 05:43] LABS: HEMATOCRIT 40.1 % (37-47); HEMOGLOBIN 13.4 g/dL (12.0-16.0); MEAN CELL VOLUME 94.6 fL (80-100); MEAN CORPUSCULAR HEMOGLOBIN 31.6 pg (25-34); MEAN CORPUSCULAR HGB CONC 33.4 g/dl (32-36); PLATELET COUNT 177 K/uL (130-400); RED CELL DISTRIBUTION WIDTH CV 13.2 % (11.5-14.5); RED CELL DISTRIBUTION WIDTH SD 45.3 fL (36.4-46.3); WHITE BLOOD COUNT 14.94 K/uL (4.8-10.8)
[2017-12-02] MEDS ORDERED: CIPR-255 PO (05:44)
[2017-12-02 06:04] LABS: ALBUMIN 2.5 gm/dl (3.4-5.0); CALCIUM 8.8 mg/dl (8.5-10.1); CREATININE 1.37 mg/dl (0.60-1.20); POTASSIUM 3.3 mmol/L (3.5-5.1)
--- NOTE | 2017-12-02 06:12 | Surgery Progress Note ---
Surgery Progress Note Date of Service December 02, 2017. Subjective awake, alert- some mild abd pain tolerating diet Objective Vital Signs: Date Time Temp Pulse Resp B/P (MAP) Pulse Ox O2 Delivery O2 Flow Rate FiO2 12/02/17 05:22 60 93 Room Air 12/02/17 03:55 36.6 66 16 120/79 (93) 95 Room Air 12/02/17 01:05 97 Nasal Cannula 2.0 12/02/17 00:54 58 103/54 (70) 83 Room Air 12/01/17 23:49 Room Air 12/01/17 23:02 37.5 64 16 100/65 (77) 90 Room Air 12/01/17 21:01 89 114/67 (83) 12/01/17 17:40 37.1 80 16 141/81 (101) 100 Nasal Cannula 2.0 12/01/17 16:30 37.0 81 16 127/60 (82) 98 Nasal Cannula 2.0 12/01/17 16:15 98 Nasal Cannula 2.0 12/01/17 16:15 98 Nasal Cannula 2.0 12/01/17 15:36 37.1 77 18 125/74 (91) 97 Nasal Cannula 2.0 12/01/17 14:52 37.1 70 16 130/76 (94) 98 Nasal Cannula 2.0 12/01/17 14:30 98 Nasal Cannula 3.0 12/01/17 14:25 36.7 71 18 117/71 (86) 98 Nasal Cannula 3.0 12/01/17 14:17 69 20 12/01/17 14:17 68 20 100 12/01/17 14:16 124/57 12/01/17 14:12 70 19 99 12/01/17 14:12 68 19 12/01/17 14:11 126/52 12/01/17 14:07 64 18 12/01/17 14:07 63 18 100 12/01/17 14:06 116/47 12/01/17 14:02 66 18 100 12/01/17 14:02 68 18 12/01/17 14:01 36.5 132/51 12/01/17 14:00 64 19 99 12/01/17 14:00 65 19 12/01/17 13:56 136/55 12/01/17 13:55 64 18 99 12/01/17 13:55 64 18 12/01/17 13:51 120/54 12/01/17 13:50 61 18 12/01/17 13:50 61 18 100 12/01/17 13:46 130/57 12/01/17 13:45 68 18 99 12/01/17 13:45 66 18 12/01/17 13:41 132/56 12/01/17 13:40 63 16 12/01/17 13:40 65 16 98 12/01/17 13:36 124/56 12/01/17 13:35 65 17 99 12/01/17 13:35 63 17 12/01/17 13:31 116/51 12/01/17 13:30 64 15 99 12/01/17 13:30 65 15 12/01/17 13:26 118/48 12/01/17 13:25 61 17 12/01/17 13:25 62 17 100 12/01/17 13:20 36.2 66 16 115/50 98 Oxymask 7 12/01/17 11:01 96 18 154/77 98 Room Air 12/01/17 09:23 78 18 135/65 99 Nasal Cannula 2.0 12/01/17 08:56 76 12/01/17 08:47 94 Nasal Cannula 2.0 12/01/17 08:46 88 Room Air 12/01/17 08:44 93 Room Air 12/01/17 08:39 37.0 76 18 115/60 93 Room Air General Appearance: no apparent distress Respiratory/Chest: no respiratory distress Abdomen: soft Incision(s): intact Laboratory Results: Results Past 24 Hours Test 12/01/17 08:37 12/01/17 14:10 12/01/17 17:01 12/01/17 19:00 Range/Units White Blood Count 16.61 4.8-10.8 K/uL Red Blood Count 5.12 4.2-5.4 M/uL Hemoglobin 16.3 12.0-16.0 g/dL Hematocrit 46.8 37-47 % Mean Corpuscular Volume 91.4 80-100 fL Mean Corpuscular Hemoglobin 31.8 25-34 pg Mean Corpuscular Hemoglobin Concent 34.8 32-36 g/dl Platelet Count 218 130-400 K/uL Mean Platelet Volume 11.7 7.4-10.4 fL Neutrophils (%) (Auto) 84.2 % Lymphocytes (%) (Auto) 10.9 % Monocytes (%) (Auto) 4.4 % Eosinophils (%) (Auto) 0.1 % Basophils (%) (Auto) 0.1 % Neutrophils # (Auto) 14.00 1.4-6.5 K/uL Lymphocytes # (Auto) 1.81 1.2-3.4 K/uL Monocytes # (Auto) 0.73 0.11-0.59 K/uL Eosinophils # (Auto) 0.01 0-0.5 K/uL Basophils # (Auto) 0.01 0-0.2 K/uL RDW Standard Deviation 42.4 36.4-46.3 fL RDW Coefficient of Variation 12.7 11.5-14.5 % Immature Granulocyte % (Auto) 0.3 % Immature Granulocyte # (Auto) 0.05 0.00-0.02 K/uL Prothrombin Time 11.0 9.0-12.0 SECONDS Prothromb Time International Ratio 1.0 0.9-1.1 Activated Partial Thromboplast Time 25.1 21.0-31.0 SECONDS Partial Thromboplastin Ratio 1.0 Sodium Level 138 136-145 mmol/L Potassium Level 3.1 3.5-5.1 mmol/L Chloride Level 104 98-107 mmol/L Carbon Dioxide Level 24 21-32 mmol/L Anion Gap 10.0 3-11 mmol/L Blood Urea Nitrogen 14 7-18 mg/dl Creatinine 0.70 0.60-1.20 mg/dl Est Creatinine Clear Calc Drug Dose 97.0 ml/min Estimated GFR () 107.6 Estimated GFR (Non- 92.9 BUN/Creatinine Ratio 20.0 10-20 Random Glucose 199 70-99 mg/dl Calcium Level 9.0 8.5-10.1 mg/dl Magnesium Level 1.8 1.8-2.4 mg/dl Total Bilirubin 0.7 0.2-1 mg/dl Direct Bilirubin 0.2 0-0.2 mg/dl Aspartate Amino Transf (AST/SGOT) 16 15-37 U/L Alanine Aminotransferase (ALT/SGPT) 24 12-78 U/L Alkaline Phosphatase 102 45-117 U/L Troponin I < 0.015 0-0.045 ng/ml Total Protein 7.4 6.4-8.2 gm/dl Albumin 3.5 3.4-5.0 gm/dl Lipase 157 73-393 U/L Thyroid Stimulating Hormone (TSH) 1.480 0.300-4.500 uIu/ml Bedside Glucose 148 157 70-90 mg/dl Urine Color DK YELLOW Urine Appearance CLEAR CLEAR Urine pH 5.5 4.5-7.5 Urine Specific [place] 1.026 1.000-1.030 Urine Protein NEG NEG Urine Glucose (UA) NEG NEG Urine Ketones TRACE NEG Urine Occult Blood NEG NEG Urine Nitrite NEG NEG Urine Bilirubin NEG NEG Urine Urobilinogen NEG NEG Urine Leukocyte Esterase TRACE NEG Urine WBC (Auto) 1-5 0-5 /hpf Urine RBC (Auto) 0-4 0-4 /hpf Urine Hyaline Casts (Auto) 1-5 0-5 /lpf Urine Epithelial Cells (Auto) >30 0-5 /lpf Urine Bacteria (Auto) NEG NEG Test 12/01/17 20:06 12/02/17 05:11 Range/Units Bedside Glucose 159 70-90 mg/dl White Blood Count 14.94 4.8-10.8 K/uL Red Blood Count 4.24 4.2-5.4 M/uL Hemoglobin 13.4 12.0-16.0 g/dL Hematocrit 40.1 37-47 % Mean Corpuscular Volume 94.6 80-100 fL Mean Corpuscular Hemoglobin 31.6 25-34 pg Mean Corpuscular Hemoglobin Concent 33.4 32-36 g/dl RDW Standard Deviation 45.3 36.4-46.3 fL RDW Coefficient of Variation 13.2 11.5-14.5 % Platelet Count 177 130-400 K/uL Mean Platelet Volume 11.0 7.4-10.4 fL Sodium Level 136 136-145 mmol/L Potassium Level 3.3 3.5-5.1 mmol/L Chloride Level 101 98-107 mmol/L Carbon Dioxide Level 33 21-32 mmol/L Anion Gap 2.0 3-11 mmol/L Blood Urea Nitrogen 13 7-18 mg/dl Creatinine 1.37 0.60-1.20 mg/dl Est Creatinine Clear Calc Drug Dose 49.5 ml/min Estimated GFR () 47.8 Estimated GFR (Non- 41.2 BUN/Creatinine Ratio 9.7 10-20 Random Glucose 146 70-99 mg/dl Calcium Level 8.8 8.5-10.1 mg/dl Magnesium Level 1.9 1.8-2.4 mg/dl Direct Bilirubin 0.2 0-0.2 mg/dl Aspartate Amino Transf (AST/SGOT) 17 15-37 U/L Alanine Aminotransferase (ALT/SGPT) 18 12-78 U/L Albumin 2.5 3.4-5.0 gm/dl Assessment & Plan 12/02/17- pt s/p lap flower yesterday- doing well- continue IV atbx and leave drain. Possible d/c tomorrow- f/u early next week in office- instructions/ scripts complete- Dr Holland covering over weekend
[2017-12-02 06:15] LABS: PHOSPHORUS 2.7 mg/dl (2.5-4.9); TOTAL PROTEIN 5.7 gm/dl (6.4-8.2)
--- NOTE | 2017-12-02 08:19 | Anesthesiology Progress Note ---
Anesthesia Post Op Note Date & Time December 02, 2017 at 08:19 Vital Signs Vital Signs Past 12 Hours Date Time Temp Pulse Resp B/P (MAP) Pulse Ox O2 Delivery O2 Flow Rate FiO2 12/02/17 07:03 37.3 59 20 97/63 (74) 92 Room Air 12/02/17 05:22 60 93 Room Air 12/02/17 03:55 36.6 66 16 120/79 (93) 95 Room Air 12/02/17 01:05 97 Nasal Cannula 2.0 12/02/17 00:54 58 103/54 (70) 83 Room Air 12/01/17 23:49 Room Air 12/01/17 23:02 37.5 64 16 100/65 (77) 90 Room Air 12/01/17 21:01 89 114/67 (83) Notes Mental Status: alert / awake / arousable, participated in evaluation Pt Amnestic to Procedure: Yes Nausea / Vomiting: adequately controlled Pain: adequately controlled Airway Patency, RR, SpO2: stable & adequate BP & HR: stable & adequate Hydration State: stable & adequate Anesthetic Complications: no major complications apparent
[2017-12-02] MEDS: PREGABALIN 150 MG CAP PO SCH ×2 (08:43→21:13)
[2017-12-02] MEDS: DULOXETINE HCL 60 MG CAP PO SCH ×2 (08:43→21:13)
[2017-12-02] MEDS: ENOXAPARIN 40 MG/0.4 ML SYR SQ SCH (08:44)
[2017-12-02] MEDS: INSULIN ASPART 100 UNITS/ML 3 ML PEN SC SCH ×4 (09:12→20:55)
--- NOTE | 2017-12-02 10:28 | Pharmacy Progress Note ---
Pharmacy Glycemic Short Note 2 Date of Service December 02, 2017. OUTPATIENT ANTIDIABETIC REGIMEN: Follows w/ [facility]. Patient tried metformin initially but was intolerant. Has been taking Victoza for awhile and basal insulin was just recently added. Notes indicate that mealtime insulin may need added in the future. * Tresiba 22 units qHS (titrating up by 2 units every 4 days) - Lantus was noted in last visit in [employer] but this must have been changed recently * Victoza 1.8 mg qAM * Also takes cinnamon * A1c = 10.9 % 10/21/17 Test 12/01/17 14:10 12/01/17 17:01 12/01/17 20:06 12/02/17 05:11 Bedside Glucose 148 mg/dl (70-90) 157 mg/dl (70-90) 159 mg/dl (70-90) Random Glucose 146 mg/dl (70-99) ASSESSMENT: * POD 1 lap flower BSGs at goal, no changes in inpatient regimen needed at this time * ADA & AACE recommend a goal blood sugar range 140-180 mg/dl for the majority of critically ill & non-critically ill patients. However, more stringent targets may be selected in individual cases. Will utilize more stringent goal of 120-150mg/dl based on patient age & comorbidities. Additionally, tighter glycemic control is warranted to facilitate wound/infection healing. Will not use as stringent of a goal of 110-140mg/dl d/t high A1c. PLAN FOR INPATIENT GLYCEMIC CONTROL: * Hold outpatient Victoza * Basal insulin * Lantus 22 units SQ HS * Bolus insulin * NovoLog per scale ACHS or Q6hrs while NPO * Goal Range: Low 120 mg/dL - High 150 mg/dL * Correction Factor: 20 mg/dL/unit * Nutritional / Prandial insulin per carb ratio of 1 unit per 7 grams CHO consumed PLAN FOR DISCHARGE: * Continue to follow up with [facility] [place] Endocrinology, may add prandial insulin soon
[2017-12-02] MEDS: PANTOprazole INJ 40 MG in SYRINGE 0 ML IV SCH (11:01)
--- NOTE | 2017-12-02 11:27 | Hospitalist Progress Note ---
Hospitalist Progress Note Date of Service December 02, 2017. (Cecy Muñoz ., MED) Subjective Pt evaluation today including: conversation w/ patient, physical exam, chart review, lab review, review of inpatient medication list Voiding: no voiding problems Ms. Gresham is post op day 1 laparoscopic cholecystectomy. She is having 6/10 pain around her incision sites. She has not had a bowel movement yet but is eating and drinking well, no further n/v. ROS Constitutional: no chills, aches, sweats or fever Respiratory: no sob,cough, sputum, or wheezing Cardiac: no chest pain, palpitations, edema, orthopnea or lightheadedness GI: no abdominal pain, nausea, vomiting, diarrhea or constipation : no dysuria or hesitancy Extremities: no joint pain or weakness Skin: no rash All other systems reviewed and negative (Cecy Muñoz ., MED) Medications Medications Administered Medications (Trade) Dose Ordered Sig/Amalia Route Start Time Stop Time Status Last Admin Dose Admin Ondansetron HCl (Zofran Inj) 4 mg NOW STAT IV 12/01/17 09:22 12/01/17 09:23 DC 12/01/17 09:26 4 MG Cefoxitin Sodium (Mefoxin 2000mg/ 60 ml D5W) 2,000 mg NOW STAT IV 12/01/17 10:04 12/01/17 10:06 DC 12/01/17 11:01 2,000 MG Metronidazole (Flagyl / Nss) 500 mg NOW STAT IV 12/01/17 10:04 12/01/17 10:06 DC 12/01/17 10:09 500 MG Bupivacaine HCl (Marcaine 0.5% MPF Inj) 30 ml STK-MED ONCE .ROUTE 12/01/17 11:20 12/01/17 11:21 DC 12/01/17 11:20 10 ML Insulin Aspart (novoLOG ASPART) SLIDING SCALE G... ACHS SC 12/01/17 16:00 12/31/17 15:59 12/02/17 09:12 1 UNITS Pantoprazole Sodium 40 mg/ Syringe 10 ml @ 5 mls/min DAILY@11 IV 12/02/17 11:00 01/01/18 10:59 12/02/17 11:01 5 MLS/MIN Insulin Glargine (Lantus Solostar Pen) 22 units HS SC 12/01/17 15:00 12/31/17 14:59 12/01/17 16:00 22 UNITS Cefoxitin Sodium 2000 mg/Dextrose 70 ml @ 100 mls/hr Q8H IV 12/01/17 18:00 12/11/17 17:59 12/02/17 04:33 100 MLS/HR Acetaminophen/ Hydrocodone Bitart (Shepherd 5/325 Tab) 1 tab Q4 PRN PO 12/01/17 13:15 12/15/17 13:14 12/02/17 11:01 1 TAB Acetaminophen/ Hydrocodone Bitart (Shepherd 5/325 Tab) 2 tab Q4 PRN PO 12/01/17 13:15 12/15/17 13:14 12/01/17 18:10 2 TAB Ondansetron HCl (Zofran Inj) 4 mg Q6H PRN IV 12/01/17 13:15 12/31/17 13:14 12/01/17 21:13 4 MG Lactated Ringer's 1,000 ml @ 75 mls/hr [id number] IV 12/01/17 15:00 12/02/17 06:09 DC 12/02/17 03:54 75 MLS/HR Aspirin (Ecotrin Tab) 81 mg HS PO 12/01/17 21:00 12/31/17 20:59 12/01/17 21:13 81 MG Atenolol (Tenormin Tab) 25 mg BID PO 12/01/17 21:00 12/31/17 20:59 12/01/17 21:12 25 MG Duloxetine HCl (Cymbalta Cap) 60 mg BID PO 12/01/17 21:00 12/31/17 20:59 12/02/17 08:43 60 MG Nortriptyline HCl (Pamelor Cap) 25 mg HS PO 12/01/17 21:00 12/31/17 20:59 12/01/17 21:12 25 MG Pregabalin (Lyrica Cap) 150 mg BID PO 12/01/17 21:00 12/31/17 20:59 12/02/17 08:43 150 MG Enoxaparin Sodium (Lovenox Inj) 40 mg QAM SQ 12/02/17 09:00 01/01/18 08:59 12/02/17 08:44 40 MG (Cecy Muñoz, ADDRESSER) Objective Vital Signs Date Time Temp Pulse Resp B/P (MAP) Pulse Ox O2 Delivery O2 Flow Rate FiO2 12/02/17 09:22 102 93/58 (70) 12/02/17 08:46 54 85/50 (62) 94 Room Air 12/02/17 07:30 Room Air 12/02/17 07:03 37.3 59 20 97/63 (74) 92 Room Air 12/02/17 05:22 60 93 Room Air 12/02/17 03:55 36.6 66 16 120/79 (93) 95 Room Air 12/02/17 01:05 97 Nasal Cannula 2.0 12/02/17 00:54 58 103/54 (70) 83 Room Air 12/01/17 23:49 Room Air 12/01/17 23:02 37.5 64 16 100/65 (77) 90 Room Air 12/01/17 21:01 89 114/67 (83) 12/01/17 17:40 37.1 80 16 141/81 (101) 100 Nasal Cannula 2.0 12/01/17 16:30 37.0 81 16 127/60 (82) 98 Nasal Cannula 2.0 12/01/17 16:15 98 Nasal Cannula 2.0 12/01/17 16:15 98 Nasal Cannula 2.0 12/01/17 15:36 37.1 77 18 125/74 (91) 97 Nasal Cannula 2.0 12/01/17 14:52 37.1 70 16 130/76 (94) 98 Nasal Cannula 2.0 12/01/17 14:30 98 Nasal Cannula 3.0 12/01/17 14:25 36.7 71 18 117/71 (86) 98 Nasal Cannula 3.0 12/01/17 14:17 69 20 12/01/17 14:17 68 20 100 12/01/17 14:16 124/57 12/01/17 14:12 70 19 99 12/01/17 14:12 68 19 12/01/17 14:11 126/52 12/01/17 14:07 64 18 12/01/17 14:07 63 18 100 12/01/17 14:06 116/47 12/01/17 14:02 66 18 100 12/01/17 14:02 68 18 12/01/17 14:01 36.5 132/51 12/01/17 14:00 64 19 99 12/01/17 14:00 65 19 12/01/17 13:56 136/55 12/01/17 13:55 64 18 99 12/01/17 13:55 64 18 12/01/17 13:51 120/54 12/01/17 13:50 61 18 12/01/17 13:50 61 18 100 12/01/17 13:46 130/57 12/01/17 13:45 68 18 99 12/01/17 13:45 66 18 12/01/17 13:41 132/56 12/01/17 13:40 63 16 12/01/17 13:40 65 16 98 12/01/17 13:36 124/56 12/01/17 13:35 65 17 99 12/01/17 13:35 63 17 12/01/17 13:31 116/51 12/01/17 13:30 64 15 99 12/01/17 13:30 65 15 12/01/17 13:26 118/48 12/01/17 13:25 61 17 12/01/17 13:25 62 17 100 12/01/17 13:20 36.2 66 16 115/50 98 Oxymask 7 (Cecy Muñoz CRNP) Physical Exam Notes: General: no distress Eyes: normal inspection, PERLL Respiratory: chest non tender, clear to auscultation, normal breath sounds, no respiratory distress, no accessory muscle use Cardiac: regular rate and rhythm, no rub or gallop, 3/6 systolic murmur LUSB, no edema, no jvd GI/: active bowel sounds, no abd pain or tenderness, soft, non distended Extremities: normal range of motion, normal strength, non tender Neuro/Psych: alert and oriented x 3, normal mood and affect Skin: normal color, dry (Cecy Muñoz CRNP) Laboratory Results Last 24 Hours Test 12/01/17 14:10 12/01/17 17:01 12/01/17 19:00 12/01/17 20:06 Bedside Glucose 148 mg/dl 157 mg/dl 159 mg/dl Urine Color DK YELLOW Urine Appearance CLEAR Urine pH 5.5 Urine Specific [place] 1.026 Urine Protein NEG Urine Glucose (UA) NEG Urine Ketones TRACE Urine Occult Blood NEG Urine Nitrite NEG Urine Bilirubin NEG Urine Urobilinogen NEG Urine Leukocyte Esterase TRACE Urine WBC (Auto) 1-5 /hpf Urine RBC (Auto) 0-4 /hpf Urine Hyaline Casts (Auto) 1-5 /lpf Urine Epithelial Cells (Auto) >30 /lpf Urine Bacteria (Auto) NEG Test 12/02/17 05:11 White Blood Count 14.94 K/uL Red Blood Count 4.24 M/uL Hemoglobin 13.4 g/dL Hematocrit 40.1 % Mean Corpuscular Volume 94.6 fL Mean Corpuscular Hemoglobin 31.6 pg Mean Corpuscular Hemoglobin Concent 33.4 g/dl RDW Standard Deviation 45.3 fL RDW Coefficient of Variation 13.2 % Platelet Count 177 K/uL Mean Platelet Volume 11.0 fL Sodium Level 136 mmol/L Potassium Level 3.3 mmol/L Chloride Level 101 mmol/L Carbon Dioxide Level 33 mmol/L Anion Gap 2.0 mmol/L Blood Urea Nitrogen 13 mg/dl Creatinine 1.37 mg/dl Est Creatinine Clear Calc Drug Dose 49.5 ml/min Estimated GFR () 47.8 Estimated GFR (Non- 41.2 BUN/Creatinine Ratio 9.7 Random Glucose 146 mg/dl Calcium Level 8.8 mg/dl Phosphorus Level 2.7 mg/dl Magnesium Level 1.9 mg/dl Total Bilirubin 1.0 mg/dl Direct Bilirubin 0.2 mg/dl Aspartate Amino Transf (AST/SGOT) 17 U/L Alanine Aminotransferase (ALT/SGPT) 18 U/L Alkaline Phosphatase 77 U/L Total Protein 5.7 gm/dl Albumin 2.5 gm/dl Globulin 3.2 gm/dl Albumin/Globulin Ratio 0.8 (Cecy Muñoz CRNP) Assessment and Plan Ms. Gresham is a 62 year old woman post op day 1 lap emani Lap Emani post op day 1 - hgb stablecbc am, no apparent bleeding, - Bowel regimen, DVT prophylaxis, pain control, PT/OT per primary team Hypokalemia - K 3.3 this am - replaced JENNIFER - baseline creat around 0.7, today 1.37 - NSS @ 75 for gentle IVF - repeat prp am DM II - home Victoza, Tresiba held - continue ss, insulin glargine - bsgs ac & hs - stable HTN - atenolol held this morning for parameters - sbp 80s and 90s this am - NSS @ 100 ml/hr, patient appears a bit dehydrated, though she is taking good po GERD - continue IV Protonix (Cecy Muñoz ., MED) HEALTHCARE TRANSLATOR Physician Supervision Note: I interviewed and examined the patient. Discussed with Cecy Muñoz HEALTHCARE TRANSLATOR and agree with findings and plan as documented in the note. Any exceptions or clarifications are listed here: None This patient is fatigued after having her gallbladder removed she is having difficulty sleeping otherwise she has been relatively stable with regard to her vital signs Vital signs are temp 30 673 pulse 102 respiration rate 20 BP 93/58 Cardiac exam is regular lungs clear abdomen is mildly tender distended however her laparoscopic entrance sites look clean and dry Continue supportive care paying attention or diabetes and and her hypokalemia using some sleeping aid to try to help her overall general feeling of rest Documented By: Tyler Ren (Tyler Ren M.D.)
[2017-12-02] MEDS ORDERED: POTASSIUM CHLORIDE 10 MEQ TABCR PO ONE (11:30)
[2017-12-02] MEDS: SODIUM CHLORIDE 0.9% 1000ML 1,000 ML IV SCH ×2 (12:17→21:15)
[2017-12-02] MEDS ORDERED: ACETAMINOPHEN 325 MG TAB ONE (21:07)
[2017-12-02] MEDS: INSULIN GLARGINE SOLOSTAR 100 UNITS/ML 3 ML PEN SC SCH (21:10)
[2017-12-02] MEDS: NORTRIPTYLINE HCL 25 MG CAP PO SCH (21:11)
[2017-12-02] MEDS: ASPIRIN 81 MG ECTAB PO SCH (21:11)
[2017-12-03] MEDS: CEFOXITIN IV 2,000 MG in DEXTROSE 5% 50ML 50 ML IV SCH ×3 (04:58→20:48)
[2017-12-03] MEDS: ACETAMINOPHEN 325 MG TAB PO PRN ×2 (05:33→18:43)
[2017-12-03] MEDS: SODIUM CHLORIDE 0.9% 1000ML 1,000 ML IV SCH ×2 (08:00→18:28)
[2017-12-03 08:23] VITALS: BP 103/66; PULSE 56; TEMP 37; O2SAT 96
[2017-12-03 08:52] LABS: HEMATOCRIT 37.4 % (37-47); HEMOGLOBIN 12.7 g/dL (12.0-16.0); MEAN CORPUSCULAR HEMOGLOBIN 31.6 pg (25-34); MEAN PLATELET VOLUME 11.3 fL (7.4-10.4); PLATELET COUNT 159 K/uL (130-400); RED CELL DISTRIBUTION WIDTH CV 12.8 % (11.5-14.5); RED CELL DISTRIBUTION WIDTH SD 43.9 fL (36.4-46.3)
[2017-12-03 09:22] LABS: CALCIUM 8.1 mg/dl (8.5-10.1); CREATININE 0.69 mg/dl (0.60-1.20); POTASSIUM 3.5 mmol/L (3.5-5.1)
[2017-12-03] MEDS: DULOXETINE HCL 60 MG CAP PO SCH ×2 (09:27→20:51)
[2017-12-03] MEDS: ENOXAPARIN 40 MG/0.4 ML SYR SQ SCH (09:28)
[2017-12-03] MEDS: INSULIN ASPART 100 UNITS/ML 3 ML PEN SC SCH ×4 (09:31→20:52)
[2017-12-03] MEDS: PREGABALIN 150 MG CAP PO SCH ×2 (09:32→20:51)
--- NOTE | 2017-12-03 11:29 | Surgery Progress Note ---
Surgery Progress Note Date of Service December 03, 2017. Subjective Feels miserable since she had breakfast. Nauseated, no vomiting. Objective Vital Signs: Date Time Temp Pulse Resp B/P (MAP) Pulse Ox O2 Delivery O2 Flow Rate FiO2 12/03/17 08:23 37.0 56 16 103/66 (78) 96 Room Air 12/03/17 07:40 Room Air 12/03/17 00:55 Room Air 12/02/17 22:58 36.7 69 16 123/61 (81) 94 Room Air 12/02/17 21:16 70 131/76 (94) 12/02/17 15:40 Room Air 12/02/17 14:59 37.1 56 16 121/55 (77) 95 Room Air 12/02/17 14:33 37.3 61 14 105/66 (79) 92 Room Air 12/02/17 12:22 110/70 (83) General Appearance: WD/WN, no apparent distress Respiratory/Chest: chest non-tender, normal breath sounds Cardiovascular: regular rate, rhythm Abdomen: soft, + abnormal bowel sounds (hypoactive), + tenderness (expected), + pertinent finding (obese) Incision(s): clean, dry, intact Laboratory Results: Results Past 24 Hours Test 12/02/17 12:03 12/02/17 17:09 12/02/17 20:27 12/03/17 08:07 Range/Units Bedside Glucose 154 103 137 147 70-90 mg/dl Test 12/03/17 08:34 Range/Units White Blood Count 9.10 4.8-10.8 K/uL Red Blood Count 4.02 4.2-5.4 M/uL Hemoglobin 12.7 12.0-16.0 g/dL Hematocrit 37.4 37-47 % Mean Corpuscular Volume 93.0 80-100 fL Mean Corpuscular Hemoglobin 31.6 25-34 pg Mean Corpuscular Hemoglobin Concent 34.0 32-36 g/dl RDW Standard Deviation 43.9 36.4-46.3 fL RDW Coefficient of Variation 12.8 11.5-14.5 % Platelet Count 159 130-400 K/uL Mean Platelet Volume 11.3 7.4-10.4 fL Sodium Level 137 136-145 mmol/L Potassium Level 3.5 3.5-5.1 mmol/L Chloride Level 106 98-107 mmol/L Carbon Dioxide Level 26 21-32 mmol/L Anion Gap 6.0 3-11 mmol/L Blood Urea Nitrogen 8 7-18 mg/dl Creatinine 0.69 0.60-1.20 mg/dl Est Creatinine Clear Calc Drug Dose 96.0 ml/min Estimated GFR () 108.1 Estimated GFR (Non- 93.3 BUN/Creatinine Ratio 11.7 10-20 Random Glucose 162 70-99 mg/dl Calcium Level 8.1 8.5-10.1 mg/dl Assessment & Plan POD#1 lap flower. Developed nausea, overall not feeling well. No flatus or bowel movement yet. Will start bowel regimen. Encouraged activity. Will keep in hospital given inability to tolerate PO intake.
[2017-12-03] MEDS ORDERED: BISACODYL 5 MG TABEC PO ONE (11:30)
[2017-12-03] MEDS ORDERED: BISACODYL 5 MG TABEC PO SCH (11:30)
--- NOTE | 2017-12-03 13:32 | Hospitalist Progress Note ---
Hospitalist Progress Note Date of Service December 03, 2017. (eCcy Muñoz ., MED) Subjective Pt evaluation today including: conversation w/ patient, physical exam, chart review, lab review, review of inpatient medication list Voiding: no voiding problems Ms. Gresham feels nauseas and unwell since eating breakfast, no vomiting. She has not yet had a bm since surgery. She does report that she got a good night of sleep last night and feels less exhausted ROS Constitutional: no chills, aches, sweats or fever Respiratory: no sob,cough, sputum, or wheezing Cardiac: no chest pain, palpitations, edema, orthopnea or lightheadedness GI: see HPI : no dysuria or hesitancy Extremities: no joint pain or weakness Skin: no rash All other systems reviewed and negative (Cecy Muñoz ., MED) Medications Medications Administered Medications (Trade) Dose Ordered Sig/Amalia Route Start Time Stop Time Status Last Admin Dose Admin Ondansetron HCl (Zofran Inj) 4 mg NOW STAT IV 12/01/17 09:22 12/01/17 09:23 DC 12/01/17 09:26 4 MG Cefoxitin Sodium (Mefoxin 2000mg/ 60 ml D5W) 2,000 mg NOW STAT IV 12/01/17 10:04 12/01/17 10:06 DC 12/01/17 11:01 2,000 MG Metronidazole (Flagyl / Nss) 500 mg NOW STAT IV 12/01/17 10:04 12/01/17 10:06 DC 12/01/17 10:09 500 MG Bupivacaine HCl (Marcaine 0.5% MPF Inj) 30 ml STK-MED ONCE .ROUTE 12/01/17 11:20 12/01/17 11:21 DC 12/01/17 11:20 10 ML Insulin Aspart (novoLOG ASPART) SLIDING SCALE G... ACHS SC 12/01/17 16:00 12/31/17 15:59 12/03/17 09:31 3 UNITS Pantoprazole Sodium 40 mg/ Syringe 10 ml @ 5 mls/min DAILY@11 IV 12/02/17 11:00 01/01/18 10:59 12/02/17 11:01 5 MLS/MIN Insulin Glargine (Lantus Solostar Pen) 22 units HS SC 12/01/17 15:00 12/31/17 14:59 12/02/17 21:10 22 UNITS Cefoxitin Sodium 2000 mg/Dextrose 70 ml @ 100 mls/hr Q8H IV 12/01/17 18:00 12/11/17 17:59 12/03/17 04:58 100 MLS/HR Acetaminophen/ Hydrocodone Bitart (Rogers 5/325 Tab) 1 tab Q4 PRN PO 12/01/17 13:15 12/15/17 13:14 12/02/17 11:01 1 TAB Acetaminophen/ Hydrocodone Bitart (Rogers 5/325 Tab) 2 tab Q4 PRN PO 12/01/17 13:15 12/15/17 13:14 12/01/17 18:10 2 TAB Ondansetron HCl (Zofran Inj) 4 mg Q6H PRN IV 12/01/17 13:15 12/31/17 13:14 12/01/17 21:13 4 MG Lactated Ringer's 1,000 ml @ 75 mls/hr [id number] IV 12/01/17 15:00 12/02/17 06:09 DC 12/02/17 03:54 75 MLS/HR Aspirin (Ecotrin Tab) 81 mg HS PO 12/01/17 21:00 12/31/17 20:59 12/02/17 21:11 81 MG Atenolol (Tenormin Tab) 25 mg BID PO 12/01/17 21:00 12/31/17 20:59 12/02/17 21:16 25 MG Duloxetine HCl (Cymbalta Cap) 60 mg BID PO 12/01/17 21:00 12/31/17 20:59 12/03/17 09:27 60 MG Nortriptyline HCl (Pamelor Cap) 25 mg HS PO 12/01/17 21:00 12/31/17 20:59 12/02/17 21:11 25 MG Pregabalin (Lyrica Cap) 150 mg BID PO 12/01/17 21:00 12/31/17 20:59 12/03/17 09:32 150 MG Enoxaparin Sodium (Lovenox Inj) 40 mg QAM SQ 12/02/17 09:00 01/01/18 08:59 12/03/17 09:28 40 MG Potassium Chloride (Klor-Con M10) 40 meq NOW ONCE PO 12/02/17 11:30 12/02/17 11:31 DC 12/02/17 12:21 40 MEQ Sodium Chloride 1,000 ml @ 100 mls/hr Q10H IV 12/02/17 11:30 01/01/18 11:29 12/03/17 08:00 100 MLS/HR Acetaminophen (Tylenol Tab) 650 mg Q4H PRN PO 12/02/17 21:15 01/01/18 21:14 12/03/17 05:33 650 MG Acetaminophen (Tylenol Tab) 650 mg STK-MED ONCE .ROUTE 12/02/17 21:07 12/02/17 21:08 DC 12/02/17 21:13 650 MG (Cecy Muñoz CRNP) Objective Vital Signs Date Time Temp Pulse Resp B/P (MAP) Pulse Ox O2 Delivery O2 Flow Rate FiO2 12/03/17 08:23 37.0 56 16 103/66 (78) 96 Room Air 12/03/17 07:40 Room Air 12/03/17 00:55 Room Air 12/02/17 22:58 36.7 69 16 123/61 (81) 94 Room Air 12/02/17 21:16 70 131/76 (94) 12/02/17 15:40 Room Air 12/02/17 14:59 37.1 56 16 121/55 (77) 95 Room Air 12/02/17 14:33 37.3 61 14 105/66 (79) 92 Room Air (Cecy Muñoz CRNP) Physical Exam Notes: General: no distress Eyes: normal inspection, PERLL Respiratory: chest non tender, clear to auscultation, normal breath sounds, no respiratory distress, no accessory muscle use Cardiac: regular rate and rhythm, no rub or gallop,systolic murmur, no edema, no jvd GI/: active bowel sounds, no abd pain or tenderness, soft, abdomen distended Extremities: normal range of motion, normal strength, non tender Neuro/Psych: alert and oriented x 3, normal mood and affect Skin: normal color, dry (Cecy Muñoz CRNP) Laboratory Results Last 24 Hours Test 12/02/17 17:09 12/02/17 20:27 5/5/18 08:07 12/03/17 08:34 Bedside Glucose 103 mg/dl 137 mg/dl 147 mg/dl White Blood Count 9.10 K/uL Red Blood Count 4.02 M/uL Hemoglobin 12.7 g/dL Hematocrit 37.4 % Mean Corpuscular Volume 93.0 fL Mean Corpuscular Hemoglobin 31.6 pg Mean Corpuscular Hemoglobin Concent 34.0 g/dl RDW Standard Deviation 43.9 fL RDW Coefficient of Variation 12.8 % Platelet Count 159 K/uL Mean Platelet Volume 11.3 fL Sodium Level 137 mmol/L Potassium Level 3.5 mmol/L Chloride Level 106 mmol/L Carbon Dioxide Level 26 mmol/L Anion Gap 6.0 mmol/L Blood Urea Nitrogen 8 mg/dl Creatinine 0.69 mg/dl Est Creatinine Clear Calc Drug Dose 96.0 ml/min Estimated GFR () 108.1 Estimated GFR (Non- 93.3 BUN/Creatinine Ratio 11.7 Random Glucose 162 mg/dl Calcium Level 8.1 mg/dl (Cecy Muñoz CRNP) Assessment and Plan Ms. Gresham is a 62 year old woman post op day 1 lap emani Lap Emani post op day 1 - hgb stable, no apparent bleeding, - DVT prophylaxis, pain control, PT/OT per primary team - per surgery note, they will start bowel regimen for patient today given her lack of bm and continued nausea Hypokalemia - replaced JENNIFER - baseline creat around 0.7, increased to 1.37 yesterday, back to baseline today after NSS @ 100 ml started yesterday. Will continue gentle IVF for now given poor po intake DM II - home Victoza, Tresiba held - continue ss, insulin glargine - bsgs ac & hs - stable - Last A1c 10.9% on 10/21 Hx HTN, current hypotension - atenolol held past two mornings for low blood pressure - Continue NSS @ 100 ml/hr for poor po intake GERD - continue IV Protonix (Cecy Muñoz CRNP) PEDIATRIC NEPHROLOGIST Physician Supervision Note: I discussed with Cecy Muñoz PEDIATRIC NEPHROLOGIST and agree with findings and plan as documented in the note. Any exceptions or clarifications are listed here: None pt is here s/p cholecystectomy. she is doing slowly better and will continue to be under surgery care Documented By: Tyler Ren (Tyler Ren M.D.)
[2017-12-03] MEDS: ONDANSETRON INJ 2 MG/ML 2 ML VIAL IV PRN (13:41)
[2017-12-03] MEDS: PANTOprazole INJ 40 MG in SYRINGE 0 ML IV SCH (13:47)
[2017-12-03 15:04] VITALS: BP 111/71; PULSE 57; TEMP 36.6; O2SAT 99
[2017-12-03 20:50] VITALS: BP 109/70; PULSE 63
[2017-12-03] MEDS: ASPIRIN 81 MG ECTAB PO SCH (20:51)
[2017-12-03] MEDS: NORTRIPTYLINE HCL 25 MG CAP PO SCH (20:51)
[2017-12-03] MEDS: INSULIN GLARGINE SOLOSTAR 100 UNITS/ML 3 ML PEN SC SCH (20:56)
[2017-12-03 23:01] VITALS: BP 121/67; PULSE 73; TEMP 37; O2SAT 94
[2017-12-04] MEDS: CEFOXITIN IV 2,000 MG in DEXTROSE 5% 50ML 50 ML IV SCH ×2 (04:01→13:04)
[2017-12-04] MEDS: SODIUM CHLORIDE 0.9% 1000ML 1,000 ML IV SCH ×2 (04:02→13:04)
[2017-12-04 06:25] LABS: HEMATOCRIT 36.5 % (37-47); HEMOGLOBIN 12.1 g/dL (12.0-16.0); MEAN CELL VOLUME 93.4 fL (80-100); MEAN CORPUSCULAR HEMOGLOBIN 30.9 pg (25-34); MEAN CORPUSCULAR HGB CONC 33.2 g/dl (32-36); MEAN PLATELET VOLUME 11.7 fL (7.4-10.4); PLATELET COUNT 144 K/uL (130-400); RED CELL DISTRIBUTION WIDTH CV 12.8 % (11.5-14.5); RED CELL DISTRIBUTION WIDTH SD 43.3 fL (36.4-46.3); WHITE BLOOD COUNT 7.96 K/uL (4.8-10.8)
[2017-12-04 06:52] LABS: CALCIUM 8.4 mg/dl (8.5-10.1); CREATININE 0.84 mg/dl (0.60-1.20); POTASSIUM 3.3 mmol/L (3.5-5.1)
[2017-12-04 06:59] VITALS: BP 112/71; PULSE 52; TEMP 36.9; O2SAT 93
[2017-12-04] MEDS: DULOXETINE HCL 60 MG CAP PO SCH (08:54)
[2017-12-04] MEDS: ENOXAPARIN 40 MG/0.4 ML SYR SQ SCH (08:55)
[2017-12-04] MEDS ORDERED: POLYETHYLENE (MIRALAX) 17 GM PACK PO SCH (09:00)
[2017-12-04] MEDS ORDERED: POTASSIUM CHLORIDE 10 MEQ TABCR PO ONE (09:00)
[2017-12-04] MEDS: INSULIN ASPART 100 UNITS/ML 3 ML PEN SC SCH ×2 (09:03→13:04)
[2017-12-04] MEDS: PREGABALIN 150 MG CAP PO SCH (09:04)
[2017-12-04] MEDS: PANTOprazole INJ 40 MG in SYRINGE 0 ML IV SCH ×2 (11:00→11:26)
[2017-12-04] MEDS ORDERED: MCRK20 PO (11:01)
--- NOTE | 2017-12-04 11:03 | Surgery Progress Note ---
Surgery Progress Note Date of Service December 04, 2017. Subjective feeling better today. Able to tolerate PO. Passing flatus. Objective Vital Signs: Date Time Temp Pulse Resp B/P (MAP) Pulse Ox O2 Delivery O2 Flow Rate FiO2 12/04/17 07:50 Room Air 12/04/17 06:59 36.9 52 16 112/71 (85) 93 Room Air 12/03/17 23:15 Room Air 12/03/17 23:01 37.0 73 16 121/67 (85) 94 Room Air 12/03/17 20:50 63 109/70 (83) 12/03/17 15:30 Room Air 12/03/17 15:04 36.6 57 17 111/71 (84) 99 Room Air Physical Exam: BONNIE drainage (serosanguinous) General Appearance: WD/WN, no apparent distress Respiratory/Chest: normal breath sounds Cardiovascular: regular rate, rhythm Abdomen: normal bowel sounds, non tender, non distended, soft Incision(s): clean, dry, intact Laboratory Results: Results Past 24 Hours Test 12/03/17 12:16 12/03/17 17:08 12/03/17 20:43 12/04/17 05:03 Range/Units Bedside Glucose 130 140 119 148 70-90 mg/dl Test 12/04/17 06:01 12/04/17 07:56 Range/Units White Blood Count 7.96 4.8-10.8 K/uL Red Blood Count 3.91 4.2-5.4 M/uL Hemoglobin 12.1 12.0-16.0 g/dL Hematocrit 36.5 37-47 % Mean Corpuscular Volume 93.4 80-100 fL Mean Corpuscular Hemoglobin 30.9 25-34 pg Mean Corpuscular Hemoglobin Concent 33.2 32-36 g/dl RDW Standard Deviation 43.3 36.4-46.3 fL RDW Coefficient of Variation 12.8 11.5-14.5 % Platelet Count 144 130-400 K/uL Mean Platelet Volume 11.7 7.4-10.4 fL Sodium Level 138 136-145 mmol/L Potassium Level 3.3 3.5-5.1 mmol/L Chloride Level 108 98-107 mmol/L Carbon Dioxide Level 26 21-32 mmol/L Anion Gap 4.0 3-11 mmol/L Blood Urea Nitrogen 6 7-18 mg/dl Creatinine 0.84 0.60-1.20 mg/dl Est Creatinine Clear Calc Drug Dose 81.6 ml/min Estimated GFR () 86.3 Estimated GFR (Non- 74.5 BUN/Creatinine Ratio 7.5 10-20 Random Glucose 149 70-99 mg/dl Calcium Level 8.4 8.5-10.1 mg/dl Bedside Glucose 125 70-90 mg/dl Assessment & Plan POD#2 lap flower. Feeling better. Hypokalemia - will replete orally. OK to discharge today.
[2017-12-04 11:31] VITALS: BP 112/71; PULSE 52; TEMP 36.9; O2SAT 93
--- NOTE | 2017-12-04 11:58 | Hospitalist Progress Note ---
Hospitalist Progress Note Date of Service December 04, 2017. Subjective Pt evaluation today including: conversation w/ patient, physical exam, chart review, lab review, review of inpatient medication list Voiding: no voiding problems Ms. Gresham complains of some swelling in her lower extremities which is not usual for her. She is eating and drinking well. She is looking forward to going home. ROS Constitutional: no chills, aches, sweats or fever Respiratory: no sob,cough, sputum, or wheezing Cardiac: no chest pain, palpitations, orthopnea or lightheadedness GI: no abdominal pain, nausea, vomiting, diarrhea or constipation : no dysuria or hesitancy Extremities: no joint pain or weakness Skin: no rash All other systems reviewed and negative Medications Medications Administered Medications (Trade) Dose Ordered Sig/Amalia Route Start Time Stop Time Status Last Admin Dose Admin Ondansetron HCl (Zofran Inj) 4 mg NOW STAT IV 12/01/17 09:22 12/01/17 09:23 DC 12/01/17 09:26 4 MG Cefoxitin Sodium (Mefoxin 2000mg/ 60 ml D5W) 2,000 mg NOW STAT IV 12/01/17 10:04 12/01/17 10:06 DC 12/01/17 11:01 2,000 MG Metronidazole (Flagyl / Nss) 500 mg NOW STAT IV 12/01/17 10:04 12/01/17 10:06 DC 12/01/17 10:09 500 MG Bupivacaine HCl (Marcaine 0.5% MPF Inj) 30 ml STK-MED ONCE .ROUTE 12/01/17 11:20 12/01/17 11:21 DC 12/01/17 11:20 10 ML Insulin Aspart (novoLOG ASPART) SLIDING SCALE G... ACHS SC 12/01/17 16:00 12/31/17 15:59 12/04/17 09:03 3 UNITS Pantoprazole Sodium 40 mg/ Syringe 10 ml @ 5 mls/min DAILY@11 IV 12/02/17 11:00 01/01/18 10:59 12/03/17 13:47 5 MLS/MIN Insulin Glargine (Lantus Solostar Pen) 22 units HS SC 12/01/17 15:00 12/31/17 14:59 12/03/17 20:56 22 UNITS Cefoxitin Sodium 2000 mg/Dextrose 70 ml @ 100 mls/hr Q8H IV 12/01/17 18:00 12/11/17 17:59 12/04/17 04:01 100 MLS/HR Acetaminophen/ Hydrocodone Bitart (Romney 5/325 Tab) 1 tab Q4 PRN PO 12/01/17 13:15 12/15/17 13:14 12/02/17 11:01 1 TAB Acetaminophen/ Hydrocodone Bitart (Romney 5/325 Tab) 2 tab Q4 PRN PO 12/01/17 13:15 12/15/17 13:14 12/01/17 18:10 2 TAB Promethazine HCl 25 mg/Sodium Chloride 51 ml @ 204 mls/hr Q6H PRN IV 12/01/17 13:15 12/31/17 13:14 12/03/17 18:40 204 MLS/HR Ondansetron HCl (Zofran Inj) 4 mg Q6H PRN IV 12/01/17 13:15 12/31/17 13:14 12/03/17 13:41 4 MG Lactated Ringer's 1,000 ml @ 75 mls/hr [id number] IV 12/01/17 15:00 12/02/17 06:09 DC 12/02/17 03:54 75 MLS/HR Aspirin (Ecotrin Tab) 81 mg HS PO 12/01/17 21:00 12/31/17 20:59 12/03/17 20:51 81 MG Atenolol (Tenormin Tab) 25 mg BID PO 12/01/17 21:00 12/31/17 20:59 12/04/17 08:54 25 MG Duloxetine HCl (Cymbalta Cap) 60 mg BID PO 12/01/17 21:00 12/31/17 20:59 12/04/17 08:54 60 MG Nortriptyline HCl (Pamelor Cap) 25 mg HS PO 12/01/17 21:00 12/31/17 20:59 12/03/17 20:51 25 MG Pregabalin (Lyrica Cap) 150 mg BID PO 12/01/17 21:00 12/31/17 20:59 12/04/17 09:04 150 MG Enoxaparin Sodium (Lovenox Inj) 40 mg QAM SQ 12/02/17 09:00 01/01/18 08:59 12/04/17 08:55 40 MG Potassium Chloride (Klor-Con M10) 40 meq NOW ONCE PO 12/02/17 11:30 12/02/17 11:31 DC 12/02/17 12:21 40 MEQ Sodium Chloride 1,000 ml @ 100 mls/hr Q10H IV 12/02/17 11:30 01/01/18 11:29 12/04/17 04:02 100 MLS/HR Acetaminophen (Tylenol Tab) 650 mg Q4H PRN PO 12/02/17 21:15 01/01/18 21:14 12/03/17 18:43 650 MG Acetaminophen (Tylenol Tab) 650 mg STK-MED ONCE .ROUTE 12/02/17 21:07 12/02/17 21:08 DC 12/02/17 21:13 650 MG Polyethylene (Miralax Powder Packet) 17 gm DAILY PO 12/04/17 09:00 01/03/18 08:59 12/04/17 08:55 17 GM Bisacodyl (Dulcolax Tab) 5 mg 1130 PO 12/03/17 11:30 12/03/17 16:00 DC 12/03/17 13:54 5 MG Potassium Chloride (Klor-Con M10) 40 meq NOW ONCE PO 12/04/17 09:00 12/04/17 09:08 DC 12/04/17 11:10 40 MEQ Objective Vital Signs Date Time Temp Pulse Resp B/P (MAP) Pulse Ox O2 Delivery O2 Flow Rate FiO2 12/04/17 11:31 36.9 52 16 93 Room Air 12/04/17 07:50 Room Air 12/04/17 06:59 36.9 52 16 112/71 (85) 93 Room Air 12/03/17 23:15 Room Air 12/03/17 23:01 37.0 73 16 121/67 (85) 94 Room Air 12/03/17 20:50 63 109/70 (83) 12/03/17 15:30 Room Air 12/03/17 15:04 36.6 57 17 111/71 (84) 99 Room Air Physical Exam Notes: General: no distress Eyes: normal inspection, PERLL Respiratory: chest non tender, clear to auscultation, normal breath sounds, no respiratory distress, no accessory muscle use Cardiac: irregular rate and rhythm, no rub or gallop, no murmur, no edema, no jvd GI/: active bowel sounds, no abd pain or tenderness, soft, non distended Extremities: normal range of motion, normal strength, non tender Neuro/Psych: alert and oriented x 3, normal mood and affect Skin: normal color, dry Laboratory Results Last 24 Hours Test 12/03/17 12:16 12/03/17 17:08 12/03/17 20:43 12/04/17 05:03 Bedside Glucose 130 mg/dl 140 mg/dl 119 mg/dl 148 mg/dl Test 12/04/17 06:01 12/04/17 07:56 White Blood Count 7.96 K/uL Red Blood Count 3.91 M/uL Hemoglobin 12.1 g/dL Hematocrit 36.5 % Mean Corpuscular Volume 93.4 fL Mean Corpuscular Hemoglobin 30.9 pg Mean Corpuscular Hemoglobin Concent 33.2 g/dl RDW Standard Deviation 43.3 fL RDW Coefficient of Variation 12.8 % Platelet Count 144 K/uL Mean Platelet Volume 11.7 fL Sodium Level 138 mmol/L Potassium Level 3.3 mmol/L Chloride Level 108 mmol/L Carbon Dioxide Level 26 mmol/L Anion Gap 4.0 mmol/L Blood Urea Nitrogen 6 mg/dl Creatinine 0.84 mg/dl Est Creatinine Clear Calc Drug Dose 81.6 ml/min Estimated GFR () 86.3 Estimated GFR (Non- 74.5 BUN/Creatinine Ratio 7.5 Random Glucose 149 mg/dl Calcium Level 8.4 mg/dl Bedside Glucose 125 mg/dl Assessment and Plan Ms. Gresham is a 62 year old woman post op day 3 lap flower Lap Flower post op day 3 - hgb stable, no apparent bleeding, - DVT prophylaxis, pain control, PT/OT per primary team Hypokalemia - K 3.3 today - replaced JENNIFER - baseline creat around 0.7, increased to 1.37 5/4, back to baseline after IVF. Lower extremity edema, R>L - US LE venous doppler right leg Irregular heart rate - EKG - patient denies chest pain or dizziness DM II - home Victoza, Tresiba held - continue ss, insulin glargine - bsgs ac & hs - stable - Last A1c 10.9% on 10/21 Hx HTN, current hypotension - atenolol held past two mornings for low blood pressure - Continue NSS @ 100 ml/hr for poor po intake GERD - continue IV Protonix If US and EKG are normal, agree patient is ready for discharge
--- NOTE | 2017-12-04 15:02 | DIAGNOSTIC IMAGING REPORT ---
R VENOUS DOPP LOWER EXT UNILAT HISTORY: 62 years-old Female edema acute edema of the right lower extremity COMPARISON: None available TECHNIQUE: Multiple real-time sonographic images of the right lower extremity deep venous structures were obtained assessing grayscale appearance, color and spectral flow FINDINGS: There is normal compressibility, flow, phasicity and augmentation of the right lower extremity deep venous structures. IMPRESSION: No sonographic evidence of deep venous thrombosis. The above report was generated using voice recognition software. It may contain grammatical, syntax or spelling errors. Electronically signed by: Sourav Overton M.D. 12/04/2017 3:00 PM Dictated Date/Time: 12/04/2017 2:59 PM
[2017-12-04 15:05] VITALS: BP 116/78; PULSE 55; TEMP 36.8; O2SAT 99
[2017-12-04] MEDS ORDERED: POTASSIUM CHLORIDE 20 MEQ TABCR PO SCH (21:00)
--- NOTE | 2017-12-06 14:06 | DISCHARGE SUMMARY ---
PRINCIPAL DIAGNOSIS: Acute cholecystitis. PROCEDURES: The patient underwent laparoscopic cholecystectomy on 12/01/2017. HISTORY OF PRESENT ILLNESS: The patient is a 62-year-old female presented to the Emergency Room with abdominal pain, nausea, and vomiting, found to have evidence of acute cholecystitis. She was taken to the operating room on the same day on 12/01/2017 where she underwent laparoscopic cholecystectomy, which she tolerated very well. She progressed well over the next 2-3 days and was felt stable for discharge home on 12/04/2017 to be followed in the surgical clinic within 1-2 weeks.
== END 2017-12-04 15:37 | disposition home health service (06) | DRG 418 ==
LOC: EDBD 08:31 → C.EDB 08:33 → C.MSW 13:12 → ENRESERV 13:46
PROVIDERS: ADMIT Surgery; ATTEND Surgery
PROC: 0FT44ZZ Resection of Gallbladder, Percutaneous Endoscopic Approach (ICD-10-PCS; principal; 2017-12-01 12:30)
DX: K80.12 Calculus of gallbladder with acute and chronic cholecystitis without obstruction (principal); N17.9 Acute kidney failure, unspecified; Z68.42 Body mass index [BMI] 45.0-49.9, adult; E87.6 Hypokalemia; I49.9 Cardiac arrhythmia, unspecified; E86.0 Dehydration; R60.0 Localized edema; I95.9 Hypotension, unspecified; R11.0 Nausea; G47.00 Insomnia, unspecified; K82.8 Other specified diseases of gallbladder; I10 Essential (primary) hypertension; E11.40 Type 2 diabetes mellitus with diabetic neuropathy, unspecified; K21.9 Gastro-esophageal reflux disease without esophagitis; G25.81 Restless legs syndrome; M17.9 Osteoarthritis of knee, unspecified; F32.9 Major depressive disorder, single episode, unspecified; F41.9 Anxiety disorder, unspecified; E66.9 Obesity, unspecified; Z96.642 Presence of left artificial hip joint; Z79.4 Long term (current) use of insulin; Z79.82 Long term (current) use of aspirin; Z79.899 Other long term (current) drug therapy; Z88.0 Allergy status to penicillin; Z88.5 Allergy status to narcotic agent; Z88.8 Allergy status to other drugs, medicaments and biological substances; Z88.7 Allergy status to serum and vaccine; Z91.018 Allergy to other foods

== ENCOUNTER 2022-04-05 20:53 | Observation (INO) ==
[2022-04-05 21:51] LABS: Hematocrit (blood only) 43.9 % (34.1-44.9); Hemoglobin 14.8 g/dl (12.0-16.0); Mean Corpuscular Hemoglobin 31.1 pg (25.0-34.0); Mean Corpuscular Hgb Conc 33.7 g/dL (32.0-36.0); Mean Corpuscular Volume 92.2 fL (80.0-100.0); RDW Coefficient of Variation 13.1 % (11.5-14.5); RDW Standard Deviation 44.2 fL (36.4-46.3); Red Blood Count 4.76 M/uL (3.93-5.22)
[2022-04-05 21:58] LABS: Alanine Aminotransferase 27 U/L (7-52); Albumin Globulin Ratio 1.2 (0.9-2); Albumin Level 4.1 gm/dl (3.4-5.0); Alkaline Phosphatase 117 U/L (34-104); Anion Gap 10 (3-11); BUN Creatinine Ratio 14.3 (10-20); Bilirubin,Total 0.4 mg/dl (0.2-1.0); Blood Urea Nitrogen 9 mg/dl (6-23); Calcium 9.4 mg/dl (8.5-10.1); Carbon Dioxide 27 mmol/L (21-32); Chloride 95 mmol/L (98-107); Creatinine Clr Calc Pharmacy 103.5 ml/min; Est GFR (African American) 107.6 ml/min; Est GFR (Non-African American) 92.8 ml/min; Globulin 3.5 gm/dl (2.5-4.0); Glucose 202 mg/dl (70-99(Fasting)); Lipase 33 U/L (11-82); Sodium 132 mmol/L (136-145); Total Protein 7.6 gm/dl (6.0-8.3); Troponin I High Sensitivity 8.9 pg/ml (0-14)
--- NOTE | 2022-04-05 22:10 | Emergency Department Note ---
Impression & Plan Chest pain, Hyperglycemia due to type 2 diabetes mellitus ED Provider Note Provider: Jomar Calhoun MD DATE OF SERVICE: 04/05/2022 CHIEF COMPLAINT: Chest pain HISTORY OF PRESENT ILLNESS: Patient is a 67-year-old female past medical history including type 2 diabetes, diabetic neuropathy, and hypertension presenting here today via ambulance from her home. Patient states that around 7-730pm this evening while doing some sweeping and cleaning at home began to experience a tightness across her chest. Patient states it was a squeezing sensation very severe and went towards her back. Did not radiate to the jaw she does not remember significant shortness of breath. This scared her and she is never felt anything that strong before. Denies cardiac history personally but states she does have a cardiac history in the family. Patient states that she called 911 for this and was brought here for further evaluation. Patient received nitroglycerin and some aspirin prior to arrival and states nitroglycerin helped and now is symptom-free. On further discussion the patient states that over the past couple of weeks while exerting herself she has been experiencing some slight tightness in her chest improves when she rests. States has been some years since she had a stress test. REVIEW OF SYSTEMS: A total of 10 review of systems was obtained and negative except as stated above in the HPI. PAST MEDICAL HISTORY: As noted above MEDICATIONS: Reviewed home medications includes 81 mg aspirin and insulin FMH: She states that family has a cardiac history SOCIAL HISTORY: Lives with , non-smoker PHYSICAL EXAM: GENERAL: alert and oriented in no acute distress on stretcher Head: normocephalic and atraumatic EYES: No injection, discharge or icterus. NECK: Trachea midline. ENT: Mucous membranes pink and moist. LUNGS: Airway patent. No retractions. Breath sounds clear HEART: Regular rate and rhythm. No chest wall tenderness ABDOMEN: Soft and non-tender, without guarding or rebound. SKIN: Acyanotic, warm, dry, without rashes EXTREMITIES: Without swelling, tenderness or deformity NEUROLOGICAL: No focal deficits. No aphasia. No facial droop or slurred speech. EK bpm sinus rhythm with occasional PAC. No PVC. No acute ST segment elevation or depression with a QTC of 440. CONTINUOUS CARDIAC MONITORING: was ordered and showed a heart rate of 50s-70s bpm in NSR to sinus jaya with occasional PAC 1 view chest x-ray per my interpretation: No evidence of pneumonia or pneumothorax. No free air under the diaphragm. No significant cardiomegaly. Patient's laboratory studies and imaging reviewed. Differential includes Cardiac ischemia, aortic dissection, pulmonary embolism, pneumothorax, pneumonia, pericarditis, myocarditis, esophageal rupture, GERD, cholecystitis, pancreatitis, musculoskeletal, as well as other pathologies. IMPRESSION/MEDICAL DECISION MAKING: Patient presents with exertional type chest discomfort improved with nitroglycerin. Diabetic history as well as family history of cardiac disease reported. EKG is reassuring and symptoms are resolved at this point. No chest pain upon arrival. X-ray per my interpretation without significant findings and doubt pulmonary findings. No evidence of pancreatitis or concerning findings fo r hepatitis based on blood work. Some slight hyponatremia noted. Stable renal function. Negative COVID. No anemia noted. Initial troponin here returns without significant elevation. Discussed with the patient given her risk factors and the exertional type symptoms she experienced tonight as well as in discussion over the past several weeks feel that further cardiac evaluation here would be reasonable. Hospitalist contacted. DIAGNOSIS: Chest pain, hyperglycemia due to type 2 diabetes DISPOSITION: Hospitalist will evaluate Patient was agreeable with this plan. Past Med/Surg History Medical History Acquired claw toe of left foot Acquired claw toe of right foot Acquired hallux valgus of right foot Anemia Colitis Diabetes mellitus with diabetic polyneuropathy Diabetic peripheral neuropathy associated with type 2 diabetes mellitus Diverticulitis Diverticulitis GERD (gastroesophageal reflux disease) Hallux valgus (acquired), left foot History of anesthesia reaction PT STATES SHE IS SLOW TO WAKE, NO DOCUMENTED ADVERSE REACTION History of cholecystitis HTN (hypertension) Hypertriglyceridemia Left knee DJD Microalbuminuria Nail complaint Osteoarthritis Right knee DJD RLS (restless legs syndrome) Type 2 diabetes mellitus with complication Urinary incontinence Vitamin D deficiency Surgical History History of cholecystectomy 12/28/17 History of total knee replacement R 2016, L 2017 History of total left hip arthroplasty 2007 S/P inguinal hernia repair S/P partial thyroidectomy S/P tonsillectomy S/P total hysterectomy Family History Mother Depression Diabetes Gallbladder disease Hypertension Lung cancer Father Lung cancer Bone cancer Grandmother Myocardial infarction Social History Smoking Status: Never smoker Cigarettes Per Day: TRIED OCC. 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; Second Hand Exposure: No; Hx Alcohol Use: No Hx Substance Use: No Preferred Language: Pashto Communication Ability: Effective Television Service Engineer Required: No Beliefs That Will Affect Care: None marital status: Current Living Situation: Spouse current occupational status: retired Feels Safe at Home: Yes Dental Care, Regularly: No Physical Activity Frequency: Does not Exercise Seatbelt Use: always Sunscreen Use: Yes Assistive Devices: Cane and Glasses Allergies Allergies Allergy/AdvReac Type Severity Reaction Status Date / Time tetanus toxoid, adsorbed Allergy Severe TROUBLE Verified 04/05/22 22:42 BREATHING Penicillins Allergy Mild ITCHINESS Verified 04/05/22 22:42 onion Allergy Unknown ? Verified 04/05/22 22:42 REACTION, ALLERGY SHOWN ON SKIN TEST orange Allergy Unknown PATCH Verified 04/05/22 22:42 TESTED HIVES REACTION tomato Allergy Unknown COUGHING Verified 04/05/22 22:42 morphine AdvReac Intermediate Gets wild Verified 04/05/22 22:42 and has the shakes meperidine AdvReac Mild NAUSEA AND Verified 04/05/22 22:42 VOMITING metformin AdvReac Mild diarrhea Verified 04/05/22 22:42 oxycodone AdvReac Mild Nausea/Vomi Verified 04/05/22 22:42 ting atorvastatin [From Lipitor] AdvReac Headache Verified 04/05/22 22:42 sulfamethoxazole AdvReac Unknown Verified 04/05/22 22:42 [From Bactrim] trimethoprim [From Bactrim] AdvReac Unknown Verified 04/05/22 22:42 Home Meds Home Medications Medication Instructions Recorded Confirmed omega 2-zyk-apu-fish oil 1,000 mg 1,000 mg PO HS 06/20/18 04/05/22 (120 mg-180 mg) capsule (Fish Oil) cholecalciferol (vitamin D3) 50 2,000 unit PO QAM 05/15/21 04/05/22 mcg (2,000 unit) capsule aspirin 81 mg tablet,delayed 81 mg PO HS 04/05/22 04/05/22 release atenolol 25 mg tablet 25 mg PO QAM 04/05/22 04/05/22 multivit with minerals-iron 18 1 tab PO QAM 04/05/22 04/05/22 mg-folic ac 400 mcg-vit K 25 mcg tablet (Multi-Day Plus Minerals) pregabalin 150 mg capsule (Lyrica) 150 mg PO BID 04/05/22 04/05/22 Previous Rx's Medication Instructions Recorded OneTouch Ultra2 Meter #1 ea 09/18/20 (blood-glucose meter) blood sugar diagnostic (OneTouch #400 ea 09/19/20 Ultra Blue Test Strip) lancets (OneTouch UltraSoft #400 ea 09/19/20 Lancets) Wheeled Walker #1 ea 07/09/21 insulin degludec 100 unit/mL (3 46 unit (0.46 mL) subcut HS 30 12/29/21 mL) subcutaneous pen (Tresiba days #15 mL FlexTouch U-100 insulin) nortriptyline 25 mg capsule 25 mg PO HS #30 caps 01/06/22 (Pamelor) oxybutynin chloride 5 mg tablet See Rx Instructions .Route 02/08/22 .COMPLEX #270 tabs topiramate 25 mg tablet (Topamax) 25 mg PO BID #60 tabs 02/15/22 BD Ultra-Fine Araceli Pen Needle 32 #200 ea 03/08/22 gauge x 5/32" (pen needle, diabetic) liraglutide 0.6 mg/0.1 mL (18 mg/3 1.8 mg (0.3 mL) subcut QAM #9 mL 03/08/22 mL) subcutaneous pen injector omeprazole 40 mg capsule,delayed 40 mg PO QAM #90 caps 03/08/22 release duloxetine 60 mg capsule,delayed 60 mg PO BID #60 caps 03/31/22 release Results & Data (ED) Vital Signs Vital Signs - 24 hr 04/05/22 21:00 04/05/22 21:00 04/05/22 21:03 Temperature 37.1 C Temperature Source Oral Pulse Rate 69 71 Pulse Rate from SpO2 Sensor 70 Respiratory Rate 20 23 Respiratory Effort / Characteristics Non-Labored Respiratory Depth Normal Normal Blood Pressure 106/51 L Blood Pressure [Right Arm] Blood Pressure Mean 69 Blood Pressure Mean [Right Arm] Pulse Oximetry 96 95 Oxygen Delivery Method Room Air Sepsis Recent Fever Within 48 Hours No Sepsis New/Unexplained Change in Mental Status No Sepsis Action Taken by Nursing No Action Required 04/05/22 21:30 04/05/22 21:30 04/05/22 22:11 Temperature Temperature Source Pulse Rate 62 66 Pulse Rate from SpO2 Sensor 77 Respiratory Rate 19 18 Respiratory Effort / Characteristics Respiratory Depth Blood Pressure 101/56 L Blood Pressure [Right Arm] Blood Pressure Mean 71 Blood Pressure Mean [Right Arm] Pulse Oximetry 93 Oxygen Delivery Method Sepsis Recent Fever Within 48 Hours Sepsis New/Unexplained Change in Mental Status Sepsis Action Taken by Nursing 04/05/22 22:15 Temperature Temperature Source Pulse Rate Pulse Rate from SpO2 Sensor Respiratory Rate Respiratory Effort / Characteristics Respiratory Depth Blood Pressure Blood Pressure [Right Arm] 105/44 L Blood Pressure Mean Blood Pressure Mean [Right Arm] 64 Pulse Oximetry Oxygen Delivery Method Sepsis Recent Fever Within 48 Hours Sepsis New/Unexplained Change in Mental Status Sepsis Action Taken by Nursing Laboratory Data Result diagrams: 04/05/22 21:03 04/05/22 21:03 Lab Results 04/05/22 04/05/22 04/05/22 Range/Units 21:03 21:03 21:25 WBC 9.90 (4.8-10.8) K/ul RBC 4.76 (3.93-5.22) M/uL Hgb 14.8 (12.0-16.0) g/dl Hct 43.9 (34.1-44.9) % MCV 92.2 (80.0-100.0) fL MCH 31.1 (25.0-34.0) pg MCHC 33.7 (32.0-36.0) g/dL RDW Std Deviation 44.2 (36.4-46.3) fL RDW Coeff of Charly 13.1 (11.5-14.5) % Sodium 132 L (136-145) mmol/L Potassium TNP Chloride 95 L (98-107) mmol/L Carbon Dioxide 27 (21-32) mmol/L Anion Gap 10 (3-11) BUN 9 (6-23) mg/dl Creatinine 0.63 (0.6-1.2) mg/dl Est Cr Clr Drug Dosing 103.5 ml/min Est GFR ( Amer) 107.6 ml/min Est GFR (Non-Af Amer) 92.8 ml/min BUN/Creatinine Ratio 14.3 (10-20) Glucose 202 H (70-99(Fasting)) mg/dl Calcium 9.4 (8.5-10.1) mg/dl Total Bilirubin 0.4 (0.2-1.0) mg/dl AST TNP ALT 27 (7-52) U/L Alkaline Phosphatase 117 H (34-104) U/L Troponin I High Sens 8.9 (0-14) pg/ml Total Protein 7.6 (6.0-8.3) gm/dl Albumin 4.1 (3.4-5.0) gm/dl Globulin 3.5 (2.5-4.0) gm/dl Albumin/Globulin Ratio 1.2 (0.9-2) Lipase 33 (11-82) U/L SARS-CoV-2, RNA, NAAT NEGATIVE (NEGATIVE) Discharge Plan Visit Data Chief Complaint: Chest Pain ED Provider: Jomar Calhoun Discharge Problem: Chest pain, Hyperglycemia due to type 2 diabetes mellitus Patient Disposition: Being Evaluated by Hospitalist Prescriptions Prescriptions: No Action (DME) blood-glucose meter [OneTouch Ultra2 Meter] [facility] See Rx Instructions .ROUTE .MEDSUPPLY Qty: 1 0RF Rx Instructions: Test blood sugars 4 times a day (DME) OneTouch Ultra Blue Test Strip Strip See Dose Instructions .ROUTE .MEDSUPPLY Qty: 400 3RF Rx Instructions: test 4 times daily (DME) lancets [OneTouch UltraSoft Lancets] [facility] See Dose Instructions .ROUTE .MEDSUPPLY Qty: 400 3RF Dose Instruction: As directed Rx Instructions: Testing 4 times daily (DME) Wheeled Walker [facility] See Rx Instructions .Route Qty: 1 0RF Rx Instructions: As directed nortriptyline [Pamelor] 25 mg capsule 25 mg PO HS Qty: 30 5RF oxybutynin chloride 5 mg tablet See Rx Instructions .ROUTE .COMPLEX Qty: 270 1RF Rx Instructions: 5 mg QAM and 10 mg QPM topiramate [Topamax] 25 mg tablet 25 mg PO BID Qty: 60 5RF omeprazole 40 mg capsule,delayed release(DR/EC) 40 mg PO QAM Qty: 90 1RF liraglutide 0.6 mg/0.1 mL (18 mg/3 mL) pen injector 1.8 mg SUBCUT QAM Qty: 9 1RF (DME) pen needle, diabetic [BD Ultra-Fine Araceli Pen Needle] 32 gauge x 5/32" needle See Dose Instructions .ROUTE .MEDSUPPLY Qty: 200 3RF Rx Instructions: use 2 needles daily duloxetine 60 mg capsule,delayed release(DR/EC) 60 mg PO BID Qty: 60 5RF cholecalciferol (vitamin D3) 50 mcg (2,000 unit) capsule 2,000 unit PO QAM Tresiba FlexTouch U-100 100 unit/mL (3 mL) insulin pen 46 unit SUBCUT HS 30 Days Qty: 15 5RF omega 2-fcg-rcg-fish oil [Fish Oil] 1,000 mg (120 mg-180 mg) Capsule 1,000 mg PO HS aspirin [Aspirin Low-Strength] 81 mg Tablet,Delayed Release (Dr/Ec) 81 mg PO HS pregabalin [Lyrica] 150 mg Capsule 150 mg PO BID atenolol 25 mg tablet 25 mg PO QAM Multi-Day Plus Minerals 18 mg iron-400 mcg-25 mcg Tablet 1 tab PO QAM Referrals Referrals: Mer Jack DO [Primary Care Provider] - : Chest pain Qualifiers: Chest pain type: unspecified Qualified Code(s): R07.9 - Chest pain, unspecified Hyperglycemia due to type 2 diabetes mellitus Qualifiers: Diabetes mellitus terminal makeup operator insulin use: with chcf use Qualified Code(s): E11.65 - Type 2 diabetes mellitus with hyperglycemia
--- NOTE | 2022-04-05 23:04 | History & Physical Report ---
Date of Service April 05, 2022 Assessment & Plan (1) Chest pain: Plan: 67yo female presenting with left sided/SSCP that occurred this evening while cleaning. Pain resolved with ASA and Nitro. EKG with no acute ischemic changes. Troponin x 1 negative Patient also reports several weeks of exertional chest pain which is relieved with rest. Risk factors for CAD include HTN, DM. -Observation to medical with telemetry -Trend troponin -Check Lipid panel in AM -Dobutamine stress echo ordered for AM -Continue ASA 81mg po qHS -Continue Atenolol 25mg po qAM (2) Type 2 diabetes mellitus with complication: Plan: Last HgbA1C on 12/23/21 = 7.4. -Continue Liraglutide 1.8mg qAM -Continue Lyrica 150mg po BID for neuropathy -Lantus 15u BID with ISS -Goal blood sugar 110 - 140, adjust as needed (3) HTN (hypertension): Plan: Blood pressure well controlled -Continue Atenolol -Monitor (4) GERD (gastroesophageal reflux disease): Plan: Chronic. Stable -Continue Protonix 40mg po daily (5) Urinary incontinence: Plan: Chronic. Stable -Continue Oxybutynin (6) Hyperlipidemia associated with type 2 diabetes mellitus: Plan: Patient with hyperlipidemia. Presently not on statin therapy -Check lipid panel F/E/N - Heplock. Check Mg and PO4 x 1, NPO for now Ppx - Low risk for DVT Code - Conditional Dispo - Observation to medical with telemetry History of Present Illness Chief Complaint: chest pain Primary Care Provider: DO Gia Acuna Marga is a 67yo female with history of DM, HTN presenting with chest pain. Patient was cleaning this evening around 19:30, sweeping the floor and scrubbing with bleach when she developed acute onset of substernal chest tightness. She reports severe tightness and squeezing with radiation to the back. She felt sl ightly dizzy but otherwise denies palpitations, diaphoresis, nausea. She has no known history of heart disease, no stents or prior CA. EMS was called - she was administered an ASA and Nitro en route to the ER which improved her pain. Presently chest pain free. No additional complaints at this time. Patient does report for the last several weeks she has been experiencing some substernal chest tightness with exertion. She has had pressure in her chest during cleaning or walking. She stops and sits and her pain rapidly resolves. Allergies Allergy/AdvReac Type Severity Reaction Status Date / Time tetanus toxoid, adsorbed Allergy Severe TROUBLE Verified 04/05/22 22:42 BREATHING Penicillins Allergy Mild ITCHINESS Verified 04/05/22 22:42 onion Allergy Unknown ? Verified 04/05/22 22:42 REACTION, ALLERGY SHOWN ON SKIN TEST orange Allergy Unknown PATCH Verified 04/05/22 22:42 TESTED HIVES REACTION tomato Allergy Unknown COUGHING Verified 04/05/22 22:42 morphine AdvReac Intermediate Gets wild Verified 04/05/22 22:42 and has the shakes meperidine AdvReac Mild NAUSEA AND Verified 04/05/22 22:42 VOMITING metformin AdvReac Mild diarrhea Verified 04/05/22 22:42 oxycodone AdvReac Mild Nausea/Vomi Verified 04/05/22 22:42 ting atorvastatin [From Lipitor] AdvReac Headache Verified 04/05/22 22:42 sulfamethoxazole AdvReac Unknown Verified 04/05/22 22:42 [From Bactrim] trimethoprim [From Bactrim] AdvReac Unknown Verified 04/05/22 22:42 Home Medications Medication Instructions Recorded Confirmed Type omega 0-cgu-xfu-fish oil 1,000 mg 1,000 mg PO HS 06/20/18 04/05/22 History (120 mg-180 mg) capsule (Fish Oil) OneTouch Ultra2 Meter #1 ea 09/18/20 12/29/21 Rx (blood-glucose meter) blood sugar diagnostic (OneTouch #400 ea 09/19/20 12/29/21 Rx Ultra Blue Test Strip) lancets (OneTouch UltraSoft #400 ea 09/19/20 12/29/21 Rx Lancets) cholecalciferol (vitamin D3) 50 2,000 unit PO QAM 05/15/21 04/05/22 History mcg (2,000 unit) capsule Wheeled Walker #1 ea 07/09/21 12/29/21 Rx insulin degludec 100 unit/mL (3 46 unit (0.46 mL) subcut HS 30 12/29/21 04/05/22 Rx mL) subcutaneous pen (Tresiba days #15 mL FlexTouch U-100 insulin) nortriptyline 25 mg capsule 25 mg PO HS #30 caps 01/06/22 04/05/22 Rx (Pamelor) oxybutynin chloride 5 mg tablet See Rx Instructions .Route 02/08/22 04/05/22 Rx .COMPLEX #270 tabs topiramate 25 mg tablet (Topamax) 25 mg PO BID #60 tabs 02/15/22 04/05/22 Rx BD Ultra-Fine Araceli Pen Needle 32 #200 ea 03/08/22 Rx gauge x 5/32" (pen needle, diabetic) liraglutide 0.6 mg/0.1 mL (18 mg/3 1.8 mg (0.3 mL) subcut QAM #9 mL 03/08/22 04/05/22 Rx mL) subcutaneous pen injector omeprazole 40 mg capsule,delayed 40 mg PO QAM #90 caps 03/08/22 04/05/22 Rx release duloxetine 60 mg capsule,delayed 60 mg PO BID #60 caps 03/31/22 04/05/22 Rx release aspirin 81 mg tablet,delayed 81 mg PO HS 04/05/22 04/05/22 History release atenolol 25 mg tablet 25 mg PO QAM 04/05/22 04/05/22 History multivit with minerals-iron 18 1 tab PO QAM 04/05/22 04/05/22 History mg-folic ac 400 mcg-vit K 25 mcg tablet (Multi-Day Plus Minerals) pregabalin 150 mg capsule (Lyrica) 150 mg PO BID 04/05/22 04/05/22 History Past Med/Surg History Medical History Acquired claw toe of left foot Acquired claw toe of right foot Acquired hallux valgus of right foot Anemia Colitis Diabetes mellitus with diabetic polyneuropathy Diabetic peripheral neuropathy associated with type 2 diabetes mellitus Diverticulitis Diverticulitis GERD (gastroesophageal reflux disease) Hallux valgus (acquired), left foot History of anesthesia reaction PT STATES SHE IS SLOW TO WAKE, NO DOCUMENTED ADVERSE REACTION History of cholecystitis HTN (hypertension) Hypertriglyceridemia Left knee DJD Microalbuminuria Nail complaint Osteoarthritis Right knee DJD RLS (restless legs syndrome) Type 2 diabetes mellitus with complication Urinary incontinence Vitamin D deficiency Surgical History History of cholecystectomy 12/28/17 History of total knee replacement R 2016, L 2017 History of total left hip arthroplasty 2007 S/P inguinal hernia repair S/P partial thyroidectomy S/P tonsillectomy S/P total hysterectomy Family History Mother Depression Diabetes Gallbladder disease Hypertension Lung cancer Father Lung cancer Bone cancer Grandmother Myocardial infarction Social History Smoking Status: Never smoker Cigarettes Per Day: TRIED OCC. 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; Second Hand Exposure: Yes; Do You Dip or Chew Tobacco: No; Hx Alcohol Use: No Hx Substance Use: No Preferred Language: Wolof Communication Ability: Effective Inventory Specialist Manager Required: No Beliefs That Will Affect Care: None marital status: Current Living Situation: Spouse current occupational status: retired Feels Safe at Home: Yes Dental Care, Regularly: No Physical Activity Frequency: Does not Exercise Seatbelt Use: always Sunscreen Use: Yes Assistive Devices: Cane and Walker Review of Systems Review of Systems: All systems reviewed & are unremarkable except as noted in HPI & below Physical Exam Physical Exam: General: patient resting comfortably, NAD, non-toxic in appearance, AA&O x 4 Skin: warm, dry, intact, no rashes or lesions HEENT: NC/AT, PERRL, EOMI, anicteric sclera, conjunctiva without injection, external ear normal to inspection and nontender, nares patent, moist mucus membranes, dentition intact, no oropharyngeal lesions, neck supple, trachea midline, no LAD, no thyromegaly, no JVD Heart: +S1/S2, regular, no m/r/g, no reproducible chest wall pain Lungs: equal air entry bilaterally, no rales/rhonchi/wheezes Abd: +BS, soft, NT/ND, no masses/organomegaly/ascites Ext: warm, 2+ pulses in UE/LE bilaterally, no clubbing/cyanosis or edema Neuro: nonfocal, patient AA&O x 4, speech intact, no facial droop, moving all extremities on command with equal strength 5/5 Results & Data Results & Data ([facility]) Vital Signs (Past 12 Hours) Vital Signs Temp Pulse Resp BP BP Pulse Ox O2 Del Method 04/05/22 22:15 105/44 L 04/05/22 22:11 66 18 04/05/22 21:30 62 19 93 04/05/22 21:30 101/56 L 04/05/22 21:03 71 23 95 04/05/22 21:00 37.1 C 69 20 106/51 L 96 Room Air Laboratory Results Laboratory Results WBC 9.90 K/ul (4.8-10.8) 04/05/22 21:03 RBC 4.76 M/uL (3.93-5.22) 04/05/22 21:03 Hgb 14.8 g/dl (12.0-16.0) 04/05/22 21:03 Hct 43.9 % (34.1-44.9) 04/05/22 21:03 MCV 92.2 fL (80.0-100.0) 04/05/22 21:03 MCH 31.1 pg (25.0-34.0) 04/05/22 21: MCHC 33.7 g/dL (32.0-36.0) 04/05/22 21:03 RDW Std Deviation 44.2 fL (36.4-46.3) 04/05/22 21:03 RDW Coeff of Charly 13.1 % (11.5-14.5) 04/05/22 21:03 Plt Count 190 K/uL (130-400) 04/05/22 21:03 MPV 13.0 fL (9.4-12.3) H 04/05/22 21:03 Immature Gran % (Auto) 0.3 % 04/05/22 21:03 Neut % (Auto) 45.6 % 04/05/22 21:03 Lymph % (Auto) 46.7 % 04/05/22 21:03 Greene % (Auto) 5.6 % 04/05/22 21:03 Eos % (Auto) 1.2 % 04/05/22 21:03 Baso % (Auto) 0.6 % 04/05/22 21:03 Neut # (Auto) 4.52 K/uL (1.4-6.5) 04/05/22 21:03 Lymph # (Auto) 4.62 K/uL (1.2-3.4) H 04/05/22 21:03 Greene # (Auto) 0.55 K/uL (0.24-0.82) 04/05/22 21:03 Eos # (Auto) 0.12 K/uL (0-0.50) 04/05/22 21:03 Baso # (Auto) 0.06 K/uL (0-0.2) 04/05/22 21:03 Immature Gran # (Auto) 0.03 K/uL (0.00-0.02) H 04/05/22 21:03 Sodium 132 mmol/L (136-145) L 04/05/22 21:03 Potassium TNP 04/05/22 21:03 Chloride 95 mmol/L (98-107) L 04/05/22 21:03 Carbon Dioxide 27 mmol/L (21-32) 04/05/22 21:03 Anion Gap 10 (3-11) 04/05/22 21:03 BUN 9 mg/dl (6-23) 04/05/22 21:03 Creatinine 0.63 mg/dl (0.6-1.2) 04/05/22 21:03 Est Cr Clr Drug Dosing 103.5 ml/min 04/05/22 21:03 Est GFR ( Amer) 107.6 ml/min 04/05/22 21:03 Est GFR (Non-Af Amer) 92.8 ml/min 04/05/22 21:03 BUN/Creatinine Ratio 14.3 (10-20) 04/05/22 21:03 Glucose 202 mg/dl (70-99(Fasting)) H 04/05/22 21:03 POC Glucose 134 mg/dl (70-99) H 04/06/22 00:32 Calcium 9.4 mg/dl (8.5-10.1) 04/05/22 21:03 Total Bilirubin 0.4 mg/dl (0.2-1.0) 04/05/22 21:03 AST TNP 04/05/22 21:03 ALT 27 U/L (7-52) 04/05/22 21:03 Alkaline Phosphatase 117 U/L (34-104) H 04/05/22 21:03 Troponin I High Sens 8.9 pg/ml (0-14) 04/05/22 21:03 Total Protein 7.6 gm/dl (6.0-8.3) 04/05/22 21:03 Albumin 4.1 gm/dl (3.4-5.0) 04/05/22 21:03 Globulin 3.5 gm/dl (2.5-4.0) 04/05/22 21:03 Albumin/Globulin Ratio 1.2 (0.9-2) 04/05/22 21:03 Lipase 33 U/L (11-82) 04/05/22 21:03 SARS-CoV-2, RNA, NAAT NEGATIVE (NEGATIVE) 04/05/22 21:25 PG Care Time/CCT Total # of Minutes Spent Total Time Spent with Patient: Total time spent is greater than 50% in coordination of care (as documented) at patient's floor/unit and/or counseling patient: Coding Level of Care Code INT OBSERVATION CARE 70M LVL 3 Diagnoses Chest pain R07.9 Chest pain type: unspecified Type 2 diabetes mellitus with complication E11.8 HTN (hypertension) I10 Hypertension type: essential hypertension GERD (gastroesophageal reflux disease) K21.9 Urinary incontinence R32 Hyperlipidemia associated with type 2 diabetes mellitus E11.69; E78.5 (1) Chest pain Chest pain type: unspecified Qualified Code(s): R07.9 - Chest pain, unspecified (2) HTN (hypertension) Hypertension type: essential hypertension Qualified Code(s): I10 - Essential (primary) hypertension
[2022-04-05 23:05] LABS: Basophils # (auto) 0.06 K/uL (0-0.2); Basophils % (auto) 0.6 %; Eosinophils # (auto) 0.12 K/uL (0-0.50); Eosinophils % (auto) 1.2 %; Immature Granulocytes # (auto) 0.03 K/uL (0.00-0.02); Immature Granulocytes % (auto) 0.3 %; Lymphocytes # (auto) 4.62 K/uL (1.2-3.4); Lymphocytes % (auto) 46.7 %; Monocytes # (auto) 0.55 K/uL (0.24-0.82); Monocytes % (auto) 5.6 %; Neutrophils # (auto) 4.52 K/uL (1.4-6.5); Neutrophils % (auto) 45.6 %; Platelet Count 190 K/uL (130-400)
[2022-04-06] MEDS ORDERED: ACETAMINOPHEN 325 MG TAB PO PRN (00:36)
[2022-04-06] MEDS ORDERED: NITROGLYCERIN SL 0.4 MG/TAB TAB SL PRN (00:36)
[2022-04-06] MEDS ORDERED: GLUCAGON FOR INJ 1 MG VIAL SQ PRN (00:36)
[2022-04-06] MEDS ORDERED: CARBOHYDRATES FOR HYPOGLYCEMIA PO PRN (00:36)
[2022-04-06] MEDS ORDERED: GLUCOSE 10 TAB/TUBE PO PRN (00:36)
[2022-04-06] MEDS ORDERED: GLUCOSE 40% GEL 15 GM TUBE PO PRN (00:36)
[2022-04-06] MEDS ORDERED: DEXTROSE 50% 50 ML SYRINGE IV PRN (00:36)
[2022-04-06 01:31] LABS: Magnesium 1.6 mg/dl (1.7-2.4); Phosphorus 2.8 mg/dl (2.5-4.9); Potassium 3.3 mmol/L (3.5-5.1)
[2022-04-06 01:33] LABS: Troponin I High Sensitivity 7.2 pg/ml (0-14)
[2022-04-06] MEDS: POTASSIUM CHLORIDE / WTR 10 MEQ/100 ML PLCT IV SCH ×6 (03:00→11:07)
[2022-04-06] MEDS: MAGNESIUM SULFATE / D5W 1 GM/100 ML BAG IV SCH ×2 (03:00→04:54)
[2022-04-06] MEDS ORDERED: INSULIN ASPART PER UNIT SC SCH ×3 (06:15→16:30)
[2022-04-06 06:26] LABS: Hematocrit (blood only) 40.6 % (34.1-44.9); Hemoglobin 13.9 g/dl (12.0-16.0); Mean Corpuscular Hemoglobin 31.2 pg (25.0-34.0); Mean Corpuscular Hgb Conc 34.2 g/dL (32.0-36.0); Mean Platelet Volume 11.9 fL (9.4-12.3); Platelet Count 195 K/uL (130-400); Red Blood Count 4.46 M/uL (3.93-5.22); White Blood Count 8.89 K/ul (4.8-10.8)
[2022-04-06 06:55] LABS: Troponin I High Sensitivity 7.2 pg/ml (0-14)
[2022-04-06 06:57] LABS: BUN Creatinine Ratio 17.3 (10-20); Calcium 8.6 mg/dl (8.5-10.1); Chol HDL Ratio 3.7 (0-5); Creatinine Clr Calc Pharmacy 122.9 ml/min; Est GFR (African American) 114.6 ml/min; Est GFR (Non-African American) 98.9 ml/min; Potassium 3.4 mmol/L (3.5-5.1)
--- NOTE | 2022-04-06 08:50 | XRay Report ---
XR chest 1V portable HISTORY: Atypical Chest Pain COMPARISON: Chest 09/23/2019. FINDINGS: There are low lung volumes. Cardiac silhouette remains normal in size. No pleural effusions . No pneumothorax. No new focal lung consolidations to suggest pneumonia. No evidence for pulmonary e javier. Advanced degenerative changes again noted within the shoulders. IMPRESSION: No significant change compared to the prior study. No acute process. ACT 112: Negative or not required by law. Electronically signed by: Florencio Max M.D. 04/06/2022 8:49 AM
[2022-04-06] MEDS ORDERED: ATENOLOL 25 MG TABLET PO SCH (09:00)
[2022-04-06] MEDS ORDERED: OXYBUTYNIN CHLORIDE 5 MG TAB PO SCH ×2 (09:00→21:00)
[2022-04-06] MEDS ORDERED: PANTOprazole 40 MG TAB PO SCH (09:00)
[2022-04-06] MEDS ORDERED: NON-FORMULARY MEDICATION (Liraglutide 0.6 mg/0.1 mL (18 mg/3 mL) pen injector) SQ SCH (09:00)
[2022-04-06] MEDS ORDERED: DULoxetine HCL 60 MG CAP PO SCH (09:00)
[2022-04-06] MEDS ORDERED: TOPIRAMATE 25 MG TAB PO SCH (09:00)
[2022-04-06] MEDS ORDERED: PREGABALIN 150 MG CAP PO SCH (09:00)
[2022-04-06] MEDS ORDERED: MAGNESIUM OXIDE 400 MG TAB PO SCH (09:00)
[2022-04-06] MEDS ORDERED: LANTUS PER UNIT CHARGE SQ SCH (09:00)
[2022-04-06] MEDS ORDERED: DOBUTamine HCL 12.5 MG/ML 20 ML VIAL IV ONE (09:41)
[2022-04-06] MEDS ORDERED: ATROPINE SULFATE 0.1 MG/ML 10ML SYR IV ONE (09:44)
[2022-04-06] MEDS ORDERED: METOPROLOL TARTRATE 1 MG/ML VIAL IV ONE (09:45)
--- NOTE | 2022-04-06 11:11 | XCELERA ---
[id number] \\[id number]
--- NOTE | 2022-04-06 11:29 | Discharge Summary ---
Date of Service April 06, 2022 Admission HPI Per Admitting Provider Gia Gresham is a 67yo female with history of DM, HTN presenting with chest pain. Patient was cleaning this evening around 19:30, sweeping the floor and scrubbing with bleach when she developed acute onset of substernal chest tightness. She reports severe tightness and squeezing with radiation to the back. She felt slightly dizzy but otherwise denies palpitations, diaphoresis, nausea. She has no known history of heart disease, no stents or prior NC. EMS was called - she was administered an ASA and Nitro en route to the ER which improved her pain. Presently chest pain free. No additional complaints at this time. Patient does report for the last several weeks she has been experiencing some substernal chest tightness with exertion. She has had pressure in her chest during cleaning or walking. She stops and sits and her pain rapidly resolves. Principal Diagnosis Chest pain, suspected noncardiac Discharge Exam General: A&Ox3. NAD. Cooperative. HEENT: Atraumatic, normocephalic. Vision and hearing grossly intact Pulm: CTAB A&P. -wheezes, -rales, -rhonchi. Symmetrical chest rise. No increase in work of breathing. No respiratory distress. Cardiac: RRR, -mrg. Radial pulses intact and symmetrical. Abdominal: Nontender, nondistended, soft. BS present. Discharge Data Allergies Allergy/AdvReac Type Severity Reaction Status Date / Time tetanus toxoid, adsorbed Allergy Severe TROUBLE Verified 04/05/22 22:42 BREATHING Penicillins Allergy Mild ITCHINESS Verified 04/05/22 22:42 onion Allergy Unknown ? Verified 04/05/22 22:42 REACTION, ALLERGY SHOWN ON SKIN TEST orange Allergy Unknown PATCH Verified 04/05/22 22:42 TESTED HIVES REACTION tomato Allergy Unknown COUGHING Verified 04/05/22 22:42 morphine AdvReac Intermediate Gets wild Verified 04/05/22 22:42 and has the shakes meperidine AdvReac Mild NAUSEA AND Verified 04/05/22 22:42 VOMITING metformin AdvReac Mild diarrhea Verified 04/05/22 22:42 oxycodone AdvReac Mild Nausea/Vomi Verified 04/05/22 22:42 ting atorvastatin [From Lipitor] AdvReac Headache Verified 04/05/22 22:42 sulfamethoxazole AdvReac Unknown Verified 04/05/22 22:42 [From Bactrim] trimethoprim [From Bactrim] AdvReac Unknown Verified 04/05/22 22:42 Consultations 04/05/22 22:24 ED Decision to Admit Stat Hospital Course (1) Chest pain: 67yo female presenting with left sided/SSCP that occurred this evening while cleaning. Pain resolved with ASA and Nitro. EKG with no acute ischemic changes. Troponin x 1 negative Patient also reports several weeks of exertional chest pain which is relieved with rest. Risk factors for CAD include HTN, DM. To do as outpatient: 1. Revisit trial of statin, patient reports multiple intolerance on admission 2. Suspected noncardiac chest pain on admission, can consider outpatient nuclear study if CAD concern remains 3. A1c 7.4, recommend intensification of glycemic regimen to goal of less than 7 Chest pain, suspected noncardiac High-sensitivity troponin on admission, 2-hour recheck, and 6-hour trended overnight all normal Dobutamine stress echo nondiagnostic, but at achieve levels did not show any signs of ischemia. No wall motion abnormality, normal EF. EKG without signs of ACS Patient reports statin intolerance, lipid panel with total cholesterol 153, LDL 67, HDL 41. -Continue ASA 81mg po qHS -Continue Atenolol 25mg po qAM Patient did have ectopy on stress echo, if concern for CAD remaining recommend follow-up with outpatient nuclear study (2) Type 2 diabetes mellitus with complication: Last HgbA1C on 12/23/21 = 7.4. -Continue Liraglutide 1.8mg qAM -Continue Lyrica 150mg po BID for neuropathy -Lantus 15u BID with ISS -Goal blood sugar 110 - 140, adjust as needed (3) HTN (hypertension): Blood pressure well controlled -Continue Atenolol -Monitor (4) GERD (gastroesophageal reflux disease): Chronic. Stable -Continue Protonix 40mg po daily (5) Urinary incontinence: Chronic. Stable -Continue Oxybutynin (6) Hyperlipidemia associated with type 2 diabetes mellitus: Patient with hyperlipidemia. Presently not on statin therapy -Check lipid panel F/E/N - Heplock. Check Mg and PO4 x 1, NPO for now Ppx - Low risk for DVT Code - Conditional Dispo - Observation to medical with telemetry Total Time Total Time Spent Total Time Spent (In Minutes): >30 Discharge Plan Discharge Items Patient Disposition: Home - Self-Care Reason For Visit: CHEST PAIN Discharge Diagnosis: Chest Pain, suspected noncardiac Activity: Per Instructions section Non-emergency contact: Primary Care Provider Call non-emergency contact if: you have any medication questions, your symptoms worsen, your pain is not controlled and your pain is worsening Follow-up/Referrals: Mer Jack DO [Primary Care Provider] - 04/14/22 8:20 am Diet: Carb Consistent or DM2 Addtl Attending Provider Instructions: You are seen in the hospital for chest pain, and a cardiac rule out. You did experience substernal chest pain leading to admission. High-sensitivity troponins were negative (normal) both at admission, and on 3 serial rechecks. Your EKG did not show any changes of a heart attack. A dobutamine stress echo was not completely diagnostic due to inability to achieve target heart rate, however at workload achieved there was no evidence of ischemia and you did not experience any cardiac symptoms. Your pumping function of your heart was normal, and no valvular disease was appreciated on the ultrasound of your heart. Overall suspicion for cardiac source of your symptoms was low, and you are discharged to follow-up with your primary care provider with consideration of a nuclear stress test in the future if clinical suspicion for CAD remains You reported a prior intolerance to statin medications. These medicatiosn can help lower cholesterol and prevent heart attacks/strokes. Please discuss statin alternatives with your PCP at followup. If you develop any new or worsening symptoms including fever, chills, sweats, chest pain, chest pressure, difficulty breathing, uncontrolled nausea/vomiting, rash, wheezing, passing out or nearly passing out, bleeding, black/bloody bowel movements, or other new or concerning symptoms please call your primary care physician, or call 911 for re-evaluation in the emergency department if you are very concerned. Pending Studies at Discharge: No Stand-Alone Forms: [facility] [employer] Medications and DC Order Prescriptions: Continued (DME) blood-glucose meter [OneTouch Ultra2 Meter] Misc See Rx Instructions .ROUTE .MEDSUPPLY Qty: 1 0RF Rx Instructions: Test blood sugars 4 times a day (DME) OneTouch Ultra Blue Test Strip Strip See Dose Instructions .ROUTE .MEDSUPPLY Qty: 400 3RF Rx Instructions: test 4 times daily (DME) lancets [OneTouch UltraSoft Lancets[place] [facility] [place] Dose Instructions .ROUTE .MEDSUPPLY Qty: 400 3RF Dose Instruction: As directed Rx Instructions: Testing 4 times daily (DME) Wheeled [place] [facility] [place] Instructions .Route Qty: 1 0RF Rx Instructions: As directed nortriptyline [Pamelor] 25 mg capsule 25 mg PO HS Qty: 30 5RF oxybutynin chloride 5 mg tablet See Rx Instructions .ROUTE .COMPLEX Qty: 270 1RF Rx Instructions: 5 mg QAM and 10 mg QPM topiramate [Topamax] 25 mg tablet 25 mg PO BID Qty: 60 5RF omeprazole 40 mg capsule,delayed release(DR/EC) 40 mg PO QAM Qty: 90 1RF liraglutide 0.6 mg/0.1 mL (18 mg/3 mL) pen injector 1.8 mg SUBCUT QAM Qty: 9 1RF (DME) pen needle, diabetic [BD Ultra-Fine Araceli Pen Needle] 32 gauge x 5/32" needle See Dose Instructions .ROUTE .MEDSUPPLY Qty: 200 3RF Rx Instructions: use 2 needles daily duloxetine 60 mg capsule,delayed release(DR/EC) 60 mg PO BID Qty: 60 5RF cholecalciferol (vitamin D3) 50 mcg (2,000 unit) capsule 2,000 unit PO QAM Tresiba FlexTouch U-100 100 unit/mL (3 mL) insulin pen 46 unit SUBCUT HS 30 Days Qty: 15 5RF omega 9-xvy-lue-fish oil [Fish Oil] 1,000 mg (120 mg-180 mg) Capsule 1,000 mg PO HS aspirin 81 mg Tablet,Delayed Release (Dr/Ec) 81 mg PO HS pregabalin [Lyrica] 150 mg Capsule 150 mg PO BID atenolol 25 mg tablet 25 mg PO QAM Multi-Day Plus Minerals 18 mg iron-400 mcg-25 mcg Tablet 1 tab PO QAM No Action clindamycin HCl 300 mg capsule 300 mg PO QID 7 Days Qty: 28 0RF Discharge Orders: Discharge Order (Routine); Ordered 04/06/22 Ordered By: Ian Regan Admission Data Admit Date/Time: 04/05/22 23:03 Attending Provider: Frida Hernandez Admit Provider: Frida Hernandez Primary Care Provider: Mer Jack. Other Providers: Frida Hernandez Other Interventions: Discharge Summary Assessment (RN) Last Done: 04/06/22 11:38 Coding Level of Care Code D/C DAY MANAGEMENT >30 MINS Diagnoses Chest pain R07.9 Chest pain type: unspecified Type 2 diabetes mellitus with complication E11.8 HTN (hypertension) I10 Hypertension type: essential hypertension GERD (gastroesophageal reflux disease) K21.9 Urinary incontinence R32 Hyperlipidemia associated with type 2 diabetes mellitus E11.69; E78.5
[2022-04-06] MEDS ORDERED: Nursing to Pharmacy Communication SCH (11:30)
--- NOTE | 2022-04-06 11:35 | Electrocardiogram Report ---
Test Reason : Blood Pressure : / mmHG Vent. Rate : 068 BPM Atrial Rate : 068 BPM P-R Int : 184 ms QRS Dur : 102 ms QT Int : 414 ms P-R-T Axes : 009 -17 049 degrees QTc Int : 440 ms Sinus rhythm with Premature atrial complexes Otherwise normal ECG When compared with ECG of 23-SEP-2019 01:37, Premature atrial complexes are now Present Confirmed by Zeferino Bhatt ([id number]) on 04/06/2022 11:35:06 AM Referred By: REFERRED SELF Confirmed By:Luis Fernando Bhatt
[2022-04-06] MEDS ORDERED: NORTRIPTYLINE HCL 25 MG CAP PO SCH (21:00)
[2022-04-06] MEDS ORDERED: ASPIRIN 81 MG ECTAB PO SCH (21:00)
== END 2022-04-06 15:40 | disposition home or self-care (01) ==
LOC: 2N 20:53 → ED 20:53 → 2N 23:54

== ENCOUNTER 2022-07-03 16:02 | Observation (INO) ==
[2022-07-03] MEDS ORDERED: dexAMETHasone**PF** 10 MG/ML VIAL IM ONE (18:28)
[2022-07-03] MEDS ORDERED: KETOROLAC TROMETHAMINE 60 MG/2 ML VIAL IM STA (18:28)
--- NOTE | 2022-07-03 19:24 | Emergency Department Note ---
Impression & Plan Closed compression fracture of L1 vertebra, Ambulatory dysfunction, Diabetes mellitus with diabetic polyneuropathy ED Provider Note NAME: ROMEO DECKER AGE: 67 SEX: F ARRIVES VIA: Walk-In INFORMANT: Patient ED PROVIDER(S): Rafi Archuleta MD CHIEF COMPLAINT: Back pain PLAN: Disposition: Admit MEDICAL DECISION MAKING: The patient is a pleasant 67-year-old woman with a past medical history of ambulatory dysfunction, neuropathy, uncontrolled diabetes, hypertension, GERD, osteoarthritis who presents emerged department as a walk-in for evaluation of back and right hip pain that has been ongoing since Tuesday when she had a fall while losing her balance loading her car with groceries. She reports she normally uses a walker to ambulate but since she was loading a vehicle groceries did not have it at the time and fell backwards onto her buttocks then hit her head. She not lose consciousness. She was able to get up with assistance and then was able to ambulate near her baseline and even drove home. However she reports over the past days her pain has become worse. She was able to drive herself to the hospital today. She feels as though she is able to function though she is more uncomfortable. She denies any blood in her urine or urinary symptoms. She denies loss of bowel control. On arrival the patient is uncomfortable no acute distress, afebrile with blood pressure 170/90s in setting of her discomfort and vital signs otherwise stable. She has mild lower lumbar paraspinal muscle discomfort without discrete tenderness. There is no midline tenderness to palpation or step-offs. She has full range of motion bilateral hips though increased pain of the right versus left with active and passive range of motion. Patient was treated with IM Toradol and dexamethasone. CT imaging was performed of the head, C-spine, lumbar spine and abdomen pelvis. Traumatic findings were limited to minimal acute inferior endplate compression fracture of L1. No retropulsed fragments are identified. Upon reevaluation patient did report some improvement. She had been able to ambulate to the bathroom with a walker and minimal assistance. Initially the patient was interested in outpatient management though we discussed the option for placement due to her impaired mobility on top of her chronic ambulatory dysfunction. However, the patient did discuss further with her brother and ultimately she reconsidered and preferred placement if possible. Unfortunately due to the patient's insurance unable to place directly from emergency department and so the patient was referred for admission. Case was discussed with Dr. Hernandez [facility] hospitalist, who will evaluate the patient for admission. Covid-19 RNA, NAAT negative. BSG 402. Further management per admitting team. Triage Nursing notes reviewed and agree them. Prior medical records reviewed Vital Signs: reviewed Differential diagnosis: Fracture, subluxation, dislocation, contusion, ligamentous injury, neurovascular, compartment syndrome, rhabdomyolysis, as well as other pathologies. ER treatment provided: See below. Laboratory studies: See below Imaging studies: See below Consultation(s): Dr. Hernandez [facility] hospitalist HPI: The patient is a pleasant 67-year-old woman with a past medical history of ambulatory dysfunction, neuropathy, uncontrolled diabetes, hypertension, GERD, osteoarthritis who presents emerged department as a walk-in for evaluation of back and right hip pain that has been ongoing since Tuesday when she had a fall while losing her balance loading her car with groceries. She reports she normally uses a walker to ambulate but since she was loading a vehicle groceries did not have it at the time and fell backwards onto her buttocks then hit her head. She not lose consciousness. She was able to get up with assistance and then was able to ambulate near her baseline and even drove home. However she reports over the past days her pain has become worse. She was able to drive herself to the hospital today. She feels as though she is able to function though she is more uncomfortable. She denies any blood in her urine or urinary symptoms. She denies loss of bowel control. ROS: See above HPI for pertinent positives & negatives. A total of 10 systems reviewed and were otherwise negative. VITALS:See Below PHYSICAL EXAMINATION: GENERAL: Awake, alert, uncomfortable-appearing, in no distress, BMI 43.2. HENT: Normocephalic, atraumatic. Oropharynx unremarkable. EYES: Normal conjunctiva. Sclera non-icteric. NECK: Supple. No nuchal rigidity. FROM. No JVD. RESPIRATORY: Clear to auscultation. CARDIAC: Regular rate, normal rhythm. Extremities warm and well perfused. Pulses equal. ABDOMEN: Soft, non-distended. No tenderness to palpation. No rebound or guardin g. No masses. RECTAL: Deferred. MUSCULOSKELETAL: Chest examination reveals no tenderness. The back is symmetrical on inspection without obvious abnormality. There is no CVA tenderness to palpation. Mild lower lumbar paraspinal muscle discomfort without discrete tenderness. There is no midline tenderness to palpation or step-offs. She has full range of motion bilateral hips though increased pain of the right versus left with active and passive range of motion. LOWER EXTREMITIES: Calves are equal size bilaterally and non-tender. Mild BLE edema. No discoloration. NEURO: No focal sensory or motor deficits noted. L5 intact bilaterally. SKIN: No rash or jaundice noted. Rafi Archuleta MD Past Med/Surg History Medical History Acquired claw toe of left foot Acquired claw toe of right foot Acquired hallux valgus of right foot Anemia Chest pain Colitis Diabetes mellitus with diabetic polyneuropathy Diabetic peripheral neuropathy associated with type 2 diabetes mellitus Diverticulitis Diverticulitis GERD (gastroesophageal reflux disease) Hallux valgus (acquired), left foot History of anesthesia reaction PT STATES SHE IS SLOW TO WAKE, NO DOCUMENTED ADVERSE REACTION History of cholecystitis HTN (hypertension) Hypertriglyceridemia Left knee DJD Microalbuminuria Nail complaint Osteoarthritis Right knee DJD RLS (restless legs syndrome) Type 2 diabetes mellitus with complication Urinary incontinence Vitamin D deficiency Surgical History History of cholecystectomy 12/28/17 History of total knee replacement R 2015, L 2017 History of total left hip arthroplasty 2007 S/P inguinal hernia repair S/P partial thyroidectomy S/P tonsillectomy S/P total hysterectomy Family History Mother Depression Diabetes Gallbladder disease Hypertension Lung cancer Father Lung cancer Bone cancer Grandmother Myocardial infarction Family/Other Breast cancer cousin Ovarian cancer Denies family history of Prostate cancer Colorectal cancer Social History Smoking Status: Never smoker Cigarettes Per Day: TRIED OCC. 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 Required: No Beliefs That Will Affect Care: None marital status: Current Living Situation: Spouse current occupational status: retired Feels Safe at Home: Yes Diet Comment: regular caffeine: Yes during the past year weight has: remained stable Dental Care, Regularly: Yes Physical Activity Frequency: 1-2 Times per Week Seatbelt Use: always Sunscreen Use: No Assistive Devices: Cane and Walker Allergies Allergies Allergy/AdvReac Type Severity Reaction Status Date / Time tetanus toxoid, adsorbed Allergy Severe TROUBLE Verified 07/03/22 22:25 BREATHING Penicillins Allergy Mild ITCHINESS Verified 07/03/22 22:25 onion Allergy Unknown ? Verified 07/03/22 22:25 REACTION, ALLERGY SHOWN ON SKIN TEST orange Allergy Unknown PATCH Verified 07/03/22 22:25 TESTED HIVES REACTION tomato Allergy Unknown COUGHING Verified 07/03/22 22:25 morphine AdvReac Intermediate Gets wild Verified 07/03/22 22:25 and has the shakes meperidine AdvReac Mild NAUSEA AND Verified 07/03/22 22:25 VOMITING metformin AdvReac Mild diarrhea Verified 07/03/22 22:25 oxycodone AdvReac Mild Nausea/Vomi Verified 07/03/22 22:25 ting atorvastatin [From Lipitor] AdvReac Headache Verified 07/03/22 22:25 sulfamethoxazole AdvReac Unknown Verified 04/16/22 13:58 [From Bactrim] trimethoprim [From Bactrim] AdvReac Unknown Verified 04/16/22 13:58 Home Meds Home Medications Medication Instructions Recorded Confirmed omega 2-hrc-qfd-fish oil 1,000 mg 1,000 mg PO HS 06/20/18 07/03/22 (120 mg-180 mg) capsule (Fish Oil) cholecalciferol (vitamin D3) 50 2,000 unit PO QAM 05/15/21 07/03/22 mcg (2,000 unit) capsule aspirin 81 mg tablet,delayed 81 mg PO HS 04/05/22 07/03/22 release atenolol 25 mg tablet 25 mg PO QAM 04/05/22 07/03/22 multivit with minerals-iron 18 1 tab PO QAM 04/05/22 07/03/22 mg-folic ac 400 mcg-vit K 25 mcg tablet (Multi-Day Plus Minerals) pregabalin 150 mg capsule (Lyrica) 150 mg PO BID 04/05/22 07/03/22 oxybutynin chloride 5 mg tablet 5 mg PO QAM 07/03/22 07/03/22 oxybutynin chloride 5 mg tablet 10 mg PO QPM 07/03/22 07/03/22 Previous Rx's Medication Instructions Recorded OneTouch Ultra2 Meter #1 ea 09/18/20 (blood-glucose meter) blood sugar diagnostic (OneTouch #400 ea 09/19/20 Ultra Blue Test Strip) lancets (OneTouch UltraSoft #400 ea 09/19/20 Lancets) Wheeled Walker #1 ea 07/09/21 insulin degludec 100 unit/mL (3 46 unit (0.46 mL) subcut HS 30 12/29/21 mL) subcutaneous pen (Tresiba days #15 mL FlexTouch U-100 insulin) nortriptyline 25 mg capsule 25 mg PO HS #30 caps 01/06/22 (Pamelor) topiramate 25 mg tablet (Topamax) 25 mg PO BID #60 tabs 02/15/22 BD Ultra-Fine Araceli Pen Needle 32 #200 ea 03/08/22 gauge x 5/32" (pen needle, diabetic) omeprazole 40 mg capsule,delayed 40 mg PO QAM #90 caps 03/08/22 release duloxetine 60 mg capsule,delayed 60 mg PO BID #60 caps 03/31/22 release loratadine 10 mg tablet (Claritin) 10 mg PO DAILY #90 tabs 05/20/22 Scooter #1 ea 06/02/22 liraglutide 0.6 mg/0.1 mL (18 mg/3 1.8 mg (0.3 mL) subcut QAM #9 mL 06/11/22 mL) subcutaneous pen injector hydrocodone 5 mg-acetaminophen 325 1 tab PO Q6H PRN pain #12 tabs 07/03/22 mg tablet Results & Data (ED) Vital Signs Vital Signs - 24 hr 07/03/22 16:04 07/03/22 18:19 07/03/22 19:00 Temperature 36.2 C L Temperature Source Temporal Artery Scan Pulse Rate 73 74 Pulse Rate [Finger] 85 Pulse Rate from SpO2 Sensor 80 Pulse Rhythm [Finger] Respiratory Rate 18 18 18 Respiratory Effort / Characteristics Non-Labored Spontaneous Non-Labored Spontaneous Respiratory Depth Normal Normal Respiratory Pattern Regular Regular Blood Pressure 164/81 H 172/93 H Blood Pressure [Right Arm] 164/93 H Blood Pressure Mean 108 119 Blood Pressure Mean [Right Arm] 116 Blood Pressure Position Sitting Blood Pressure Position [Right Arm] Lying Pulse Oximetry 96 97 96 Oxygen Delivery Method Room Air Room Air Room Air Sepsis Recent Fever Within 48 Hours No Sepsis New/Unexplained Change in Mental Status No Sepsis Action Taken by Nursing No Action Required 07/03/22 22:00 Temperature Temperature Source Pulse Rate Pulse Rate [Finger] 74 Pulse Rate from SpO2 Sensor Pulse Rhythm [Finger] Regular Respiratory Rate 18 Respiratory Effort / Characteristics Respiratory Depth Normal Respiratory Pattern Blood Pressure Blood Pressure [Right Arm] 167/80 H Blood Pressure Mean Blood Pressure Mean [Right Arm] 109 Blood Pressure Position Blood Pressure Position [Right Arm] Pulse Oximetry 98 Oxygen Delivery Method Room Air Sepsis Recent Fever Within 48 Hours Sepsis New/Unexplained Change in Mental Status Sepsis Action Taken by Nursing Laboratory Data Attestation: I reviewed the patient's lab results. Lab Results 07/03/22 Range/Units 23:19 SARS-CoV-2, RNA, NAAT NEGATIVE (NEGATIVE) Administered Medications Discontinued Medications Aspirin (Aspirin 81 Mg Ectab) 81 mg PO NOW STA Stop: 07/03/22 23:53 Last Admin: 07/04/22 00:37 Dose: 81 mg Documented By: Dexamethasone Sodium Phosphate (DexamethasonePf 10 Mg/Ml Vial) 10 mg IM NOW ONE Stop: 07/03/22 18:29 Last Admin: 07/03/22 18:59 Dose: 10 mg Documented By: AN Duloxetine HCl (Duloxetine Hcl 60 Mg Cap) 60 mg PO NOW STA Stop: 07/03/22 23:53 Last Admin: 07/04/22 00:37 Dose: 60 mg Documented By: Ketorolac Tromethamine (Ketorolac Tromethamine 60 Mg/2 Ml Vial) 60 mg IM NOW STA Stop: 07/03/22 18:29 Last Admin: 07/03/22 18:57 Dose: 60 mg Documented By: [facility] Nortriptyline HCl (Nortriptyline Hcl 25 Mg Cap) 25 mg PO NOW STA Stop: 07/03/22 23:53 Last Admin: 07/04/22 00:38 Dose: 25 mg Documented By: Oxybutynin Chloride (Oxybutynin Chloride Xl 5 Mg Tabcr) 10 mg PO NOW STA Stop: 07/04/22 00:17 Last Admin: 12/04/22 00:38 Dose: 10 mg Documented By: DARIA Pregabalin (Pregabalin 150 Mg Cap) 150 mg PO NOW STA Stop: 07/03/22 23:53 Last Admin: 07/04/22 00:49 Dose: 150 mg Documented By: DARIA Topiramate (Topiramate 25 Mg Tab) 25 mg PO NOW STA Stop: 07/03/22 23:53 Last Admin: 07/04/22 00:38 Dose: 25 mg Documented By: DARIA Imaging Data Radiologist's Impression: Abdomen/Pelvis CT 07/03/22 18:27 CT SCAN OF THE ABDOMEN AND PELVIS WITHOUT IV CONTRAST; CT SCAN OF THE LUMBAR SPINE WITHOUT IV CONTRAST CLINICAL HISTORY: Fall. Low back pain. COMPARISON STUDY: Abdominal CT dated 06/20/2018. TECHNIQUE: CT scan of the abdomen and pelvis is performed from the lung bases to the proximal femora. Additionally, CT scan of the lumbar spine is performed from the lower thoracic spine to the sacrum. Images for both examinations are reviewed in the axial, sagittal, and coronal planes. IV contrast was not administered for this examination as per the referring clinician. Note that the examination is significantly suboptimal without IV contrast in the setting of trauma. There is also streak artifact from the arms which could not be elevated above the abdomen. A dose lowering technique was utilized adhering to the principles of ALARA. CT DOSE: 3272.44 mGy.cm FINDINGS: Lung bases: The heart is normal in size and without pericardial effusion. There are coronary artery calcifications. A small hiatal hernia is noted. The lung bases are clear. Liver: The unenhanced liver is normal in size, contour, and attenuation. There is no intrahepatic biliary ductal dilatation. Gallbladder: Surgically absent noting clips in the gallbladder fossa. Spleen: Normal in size and attenuation. Pancreas: The unenhanced pancreas is moderately atrophic and grossly unremarkable. Adrenal glands: Unremarkable. Kidneys: The unenhanced kidneys demonstrate cortical atrophy and are without hydronephrosis. There are least 2 nonobstructing right renal calculi which nikky ure up to 2 mm. No left renal calculi are identified and there is no ureteral stone. There is no evidence of contour deforming renal mass lesion. Abdominal vasculature: The abdominal aorta is normal in course and caliber. Bowel: There is bkpo-tm-sygcryup colonic fecal retention. No bowel obstruction is seen. There are scattered colonic diverticula without CT evidence of acute diverticulitis. The appendix is well-visualized and normal. Peritoneum: There is no intraperitoneal free air or abdominal ascites. There is evidence of previous ventral hernia repair. There is laxity of the ventral abdominal/pelvic wall with protrusion of abdominal contents. Lymphadenopathy: None. Pelvic viscera: Evaluation of the pelvis is degraded by streak artifact from a left hip arthroplasty. The bladder is normal as visualized. The uterus is surgically absent. No adnexal lesion is seen. Skeletal structures: See below for dedicated discussion of the lumbar spine. The skeletal structures are osteopenic. No lytic or blastic lesions are seen. The bony pelvis and proximal femora appear intact. Arthritic changes noted in the right hip. A left hip arthroplasty is in place. LUMBAR SPINE: There is a minimal acute inferior endplate compression fracture of L1. Paravertebral edema is noted. No retropulsed fragments are identified. Vertebral body height is otherwise maintained throughout the lumbar spine. Alignment is preserved. No additional acute fracture is identified. Large anterior and lateral marginal osteophytes are seen throughout. The transverse and spinous processes are intact. There is no evidence of spondylolysis. There is moderate to advanced disc space narrowing at all levels between L2-L3 and L5- S1 with multilevel endplate sclerosis. Posterior disc osteophyte complexes are seen all lumbar levels and contribute to multilevel acquired compromise of the central canal. Facet arthropathy is noted in the lower lumbar region. There is fatty atrophy of the paraspinous musculature. IMPRESSION: 1. There is no evidence of solid organ injury in the abdomen or pelvis on this unenhanced examination. 2. There is a minimal acute inferior endplate compression fracture of L1. No retropulsed fragments are identified. 3. No additional acute fracture is seen. 4. Right-sided nephrolithiasis. 5. Additional findings as above. ACT 112: Negative or not required by law. Electronically signed by: Jv Carrasquillo M.D. 07/03/2022 9:[address] 07/03/22 18:27 CT SCAN OF THE CERVICAL SPINE CLINICAL HISTORY: Fall. Neck pain. COMPARISON STUDY: CT of the cervical spine dated 12/19/2018. TECHNIQUE: CT scan of the cervical spine is performed from the skull base to the upper thoracic spine. Images are reviewed in the axial, sagittal, and coronal planes. IV contrast was not administered for this examination. A dose lowering technique was utilized adhering to the principles of ALARA. FINDINGS: Skeletal structures: The skeletal structures are well mineralized. There is no evidence of fracture or subluxation involving the cervical spine. Vertebral body height and alignment are maintained. There is straightening of the cervical lordosis. Large anterior osteophytes are seen throughout. The odontoid process and lateral masses are intact. The atlantoaxial articulation is preserved noting productive degenerative change. The spinous processes appear intact. There is moderate multilevel cervical spondylosis. Uncovertebral and facet arthropathy contribute to neural foraminal narrowing at several levels. Intervertebral discs: There is moderate disc space narrowing at C5-C6, C6-C7, and C7-T1. Mild narrowing seen at the remaining cervical levels. Central canal: The posterior longitudinal ligament is thickened and densely calcified. Posterior disc osteophyte complex is at C5-C6, C6-C7 and C7-T1 in conjunction with the thickened posterior longitudinal ligament contributing to multilevel acquired compromise of the central canal Soft tissues: The prevertebral and paraspinous soft tissues are within normal limits. Calvarium: The visualized calvarium at the skull base appears intact. Brain parenchyma: Partially visualized brain parenchyma at the skull base is within normal limits. Sinuses and mastoids: The visualized paranasal sinuses are clear. The mastoid air cells are well pneumatized. Lung apices: Clear as visualized. IMPRESSION: 1. There is no evidence of fracture or subluxation involving the cervical spine. 2. Osteopenia and spondylotic change as above. ACT 112: Negative or not required by law. Electronically signed by: Jv Carrasquillo M.D. 07/03/2022 8:[address] 07/03/22 18:27 CT SCAN OF THE BRAIN WITHOUT IV CONTRAST CLINICAL HISTORY: Fall. COMPARISON STUDY: CT of the brain dated 09/23/2021 TECHNIQUE: Unenhanced axial CT scan of the brain is performed from the vertex to the skull base. A dose lowering technique was utilized adhering to the principles of ALARA. FINDINGS: Brain parenchyma: There is age-related involutional change noting mild subcortical and periventricular microangiopathic disease. There is no hemorrhage, mass effect, or evidence of acute territorial ischemia by CT criteria. Leach-white matter differentiation is preserved. No extra-axial fluid collection is seen. Ventricles, sulci, cisterns: Prominent secondary to involutional change. Intracranial vasculature: There is atherosclerotic calcification of the cavernous carotid arteries. Calvarium: The skeletal structures are osteopenic. No depressed calvarial fracture is identified. Sinuses and mastoids: The paranasal sinuses are clear. The mastoid air cells are well pneumatized. Orbits: The bony orbits are grossly intact. IMPRESSION: There is no hemorrhage, mass effect, or evidence of acute territorial ischemia by CT criteria. ACT 112: Negative or not required by law. Electronically signed by: Jv Carrasquillo M.D. 07/03/2022 8:[address] 07/03/22 18:27 CT SCAN OF THE ABDOMEN AND PELVIS WITHOUT IV CONTRAST; CT SCAN OF THE LUMBAR SPINE WITHOUT IV CONTRAST CLINICAL HISTORY: Fall. Low back pain. COMPARISON STUDY: Abdominal CT dated 06/20/2018. TECHNIQUE: CT scan of the abdomen and pelvis is performed from the lung bases to the proximal femora. Additionally, CT scan of the lumbar spine is performed from the lower thoracic spine to the sacrum. Images for both examinations are reviewed in the axial, sagittal, and coronal planes. IV contrast was not administered for this examination as per the referring clinician. Note that the examination is significantly suboptimal without IV contrast in the setting of trauma. There is also streak artifact from the arms which could not be elevated above the abdomen. A dose lowering technique was utilized adhering to the principles of ALARA. CT DOSE: 3272.44 mGy.cm FINDINGS: Lung bases: The heart is normal in size and without pericardial effusion. There are coronary artery calcifications. A small hiatal hernia is noted. The lung bases are clear. Liver: The unenhanced liver is normal in size, contour, and attenuation. There is no intrahepatic biliary ductal dilatation. Gallbladder: Surgically absent noting clips in the gallbladder fossa. Spleen: Normal in size and attenuation. Pancreas: The unenhanced pancreas is moderately atrophic and grossly unremarkable. Adrenal glands: Unremarkable. Kidneys: The unenhanced kidneys demonstrate cortical atrophy and are without hydronephrosis. There are least 2 nonobstructing right renal calculi which measure up to 2 mm. No left renal calculi are identified and there is no ureteral stone. There is no evidence of contour deforming renal mass lesion. Abdominal vasculature: The abdominal aorta is normal in course and caliber. Bowel: There is pasr-fo-xutgtcxa colonic fecal retention. No bowel obstruction is seen. There are scattered colonic diverticula without CT evidence of acute diverticulitis. The appendix is well-visualized and normal. Peritoneum: There is no intraperitoneal free air or abdominal ascites. There is evidence of previous ventral hernia repair. There is laxity of the ventral abdominal/pelvic wall with protrusion of abdominal contents. Lymphadenopathy: None. Pelvic viscera: Evaluation of the pelvis is degraded by streak artifact from a left hip arthroplasty. The bladder is normal as visualized. The uterus is surgically absent. No adnexal lesion is seen. Skeletal structures: See below for dedicated discussion of the lumbar spine. The skeletal structures are osteopenic. No lytic or blastic lesions are seen. The bony pelvis and proximal femora appear intact. Arthritic changes noted in the right hip. A left hip arthroplasty is in place. LUMBAR SPINE: There is a minimal acute inferior endplate compression fracture of L1. Paravertebral edema is noted. No retropulsed fragments are identified. Vertebral body height is otherwise maintained throughout the lumbar spine. Alignment is preserved. No additional acute fracture is identified. Large anterior and lateral marginal osteophytes are seen throughout. The transverse and spinous processes are intact. There is no evidence of spondylolysis. There is moderate to advanced disc space narrowing at all levels between L2-L3 and L5- S1 with multilevel endplate sclerosis. Posterior disc osteophyte complexes are seen all lumbar levels and contribute to multilevel acquired compromise of the central canal. Facet arthropathy is noted in the lower lumbar region. There is fatty atrophy of the paraspinous musculature. IMPRESSION: 1. There is no evidence of solid organ injury in the abdomen or pelvis on this unenhanced examination. 2. There is a minimal acute inferior endplate compression fracture of L1. No retropulsed fragments are identified. 3. No additional acute fracture is seen. 4. Right-sided nephrolithiasis. 5. Additional findings as above. ACT 112: Negative or not required by law. Electronically signed by: Jv Carrasquillo M.D. 07/03/2022 9:25 PM Discharge Plan Visit Data Chief Complaint: Back Injury/Pain Stated Complaint: BACK INJURY ED Provider: Rafi Archuleta Discharge Problem: Closed compression fracture of L1 vertebra, Ambulatory dysfunction, Diabetes mellitus with diabetic polyneuropathy Patient Disposition: Home - Self-Care Condition: Good Discharge Instructions Interventions: ED Discharge Assessment Last Done: 07/04/22 02:37
--- NOTE | 2022-07-03 20:33 | CT Scan Report ---
CT SCAN OF THE BRAIN WITHOUT IV CONTRAST CLINICAL HISTORY: Fall. COMPARISON STUDY: CT of the brain dated 09/23/2021 TECHNIQUE: Unenhanced axial CT scan of the brain is performed from the vertex to the skull base. A do se lowering technique was utilized adhering to the principles of ALARA. FINDINGS: Brain parenchyma: There is age-related involutional change noting mild subcortical and periventricula r microangiopathic disease. There is no hemorrhage, mass effect, or evidence of acute territorial isc hemia by CT criteria. Leach-white matter differentiation is preserved. No extra-axial fluid collection is seen. Ventricles, sulci, cisterns: Prominent secondary to involutional change. Intracranial vasculature: There is atherosclerotic calcification of the cavernous carotid arteries. Calvarium: The skeletal structures are osteopenic. No depressed calvarial fracture is identified. Sinuses and mastoids: The paranasal sinuses are clear. The mastoid air cells are well pneumatized. Orbits: The bony orbits are grossly intact. IMPRESSION: There is no hemorrhage, mass effect, or evidence of acute territorial ischemia by CT maribell gamble. ACT 112: Negative or not required by law. Electronically signed by: Jv Carrasquillo M.D. 07/03/2022 8:31 PM
--- NOTE | 2022-07-03 20:41 | CT Scan Report ---
CT SCAN OF THE CERVICAL SPINE CLINICAL HISTORY: Fall. Neck pain. COMPARISON STUDY: CT of the cervical spine dated 12/19/2018. TECHNIQUE: CT scan of the cervical spine is performed from the skull base to the upper thoracic spine . Images are reviewed in the axial, sagittal, and coronal planes. IV contrast was not administered fo r this examination. A dose lowering technique was utilized adhering to the principles of ALARA. FINDINGS: Skeletal structures: The skeletal structures are well mineralized. There is no evidence of fracture o r subluxation involving the cervical spine. Vertebral body height and alignment are maintained. There is straightening of the cervical lordosis. Large anterior osteophytes are seen throughout. The odont oid process and lateral masses are intact. The atlantoaxial articulation is preserved noting producti ve degenerative change. The spinous processes appear intact. There is moderate multilevel cervical sp ondylosis. Uncovertebral and facet arthropathy contribute to neural foraminal narrowing at several le vels. Intervertebral discs: There is moderate disc space narrowing at C5-C6, C6-C7, and C7-T1. Mild narrowi ng seen at the remaining cervical levels. Central canal: The posterior longitudinal ligament is thickened and densely calcified. Posterior disc osteophyte complex is at C5-C6, C6-C7 and C7-T1 in conjunction with the thickened posterior longitud inal ligament contributing to multilevel acquired compromise of the central canal Soft tissues: The prevertebral and paraspinous soft tissues are within normal limits. Calvarium: The visualized calvarium at the skull base appears intact. Brain parenchyma: Partially visualized brain parenchyma at the skull base is within normal limits. Sinuses and mastoids: The visualized paranasal sinuses are clear. The mastoid air cells are well pneu matized. Lung apices: Clear as visualized. IMPRESSION: 1. There is no evidence of fracture or subluxation involving the cervical spine. 2. Osteopenia and spondylotic change as above. ACT 112: Negative or not required by law. Electronically signed by: Jv Carrasquillo M.D. 07/03/2022 8:39 PM
--- NOTE | 2022-07-03 21:27 | CT Scan Report ---
CT SCAN OF THE ABDOMEN AND PELVIS WITHOUT IV CONTRAST; CT SCAN OF THE LUMBAR SPINE WITHOUT IV CONTRAS T CLINICAL HISTORY: Fall. Low back pain. COMPARISON STUDY: Abdominal CT dated 06/20/2018. TECHNIQUE: CT scan of the abdomen and pelvis is performed from the lung bases to the proximal femora. Additionally, CT scan of the lumbar spine is performed from the lower thoracic spine to the sacrum. Images for both examinations are reviewed in the axial, sagittal, and coronal planes. IV contrast was not administered for this examination as per the referring clinician. Note that the examination is s ignificantly suboptimal without IV contrast in the setting of trauma. There is also streak artifact f rom the arms which could not be elevated above the abdomen. A dose lowering technique was utilized ad kinga to the principles of ALARA. CT DOSE: 3272.44 mGy.cm FINDINGS: Lung bases: The heart is normal in size and without pericardial effusion. There are coronary artery c alcifications. A small hiatal hernia is noted. The lung bases are clear. Liver: The unenhanced liver is normal in size, contour, and attenuation. There is no intrahepatic jhonny iary ductal dilatation. Gallbladder: Surgically absent noting clips in the gallbladder fossa. Spleen: Normal in size and attenuation. Pancreas: The unenhanced pancreas is moderately atrophic and grossly unremarkable. Adrenal glands: Unremarkable. Kidneys: The unenhanced kidneys demonstrate cortical atrophy and are without hydronephrosis. There ar e least 2 nonobstructing right renal calculi which measure up to 2 mm. No left renal calculi are iden tified and there is no ureteral stone. There is no evidence of contour deforming renal mass lesion. Abdominal vasculature: The abdominal aorta is normal in course and caliber. Bowel: There is [id number] colonic fecal retention. No bowel obstruction is seen. There are sca ttered colonic diverticula without CT evidence of acute diverticulitis. The appendix is well-visuali zed and normal. Peritoneum: There is no intraperitoneal free air or abdominal ascites. There is evidence of previous ventral hernia repair. There is laxity of the ventral abdominal/pelvic wall with protrusion of abdomi nal contents. Lymphadenopathy: None. Pelvic viscera: Evaluation of the pelvis is degraded by streak artifact from a left hip arthroplasty. The bladder is normal as visualized. The uterus is surgically absent. No adnexal lesion is seen. Skeletal structures: See below for dedicated discussion of the lumbar spine. The skeletal structures are osteopenic. No lytic or blastic lesions are seen. The bony pelvis and proximal femora appear inta ct. Arthritic changes noted in the right hip. A left hip arthroplasty is in place. LUMBAR SPINE: There is a minimal acute inferior endplate compression fracture of L1. Paravertebral ed nevaeh is noted. No retropulsed fragments are identified. Vertebral body height is otherwise maintained throughout the lumbar spine. Alignment is preserved. No additional acute fracture is identified. Larg e anterior and lateral marginal osteophytes are seen throughout. The transverse and spinous processes are intact. There is no evidence of spondylolysis. There is moderate to advanced disc space narrowin g at all levels between L2-L3 and L5-S1 with multilevel endplate sclerosis. Posterior disc osteophyte complexes are seen all lumbar levels and contribute to multilevel acquired compromise of the central canal. Facet arthropathy is noted in the lower lumbar region. There is fatty atrophy of the paraspin ous musculature. IMPRESSION: 1. There is no evidence of solid organ injury in the abdomen or pelvis on this unenhanced examination . 2. There is a minimal acute inferior endplate compression fracture of L1. No retropulsed fragments ar e identified. 3. No additional acute fracture is seen. 4. Right-sided nephrolithiasis. 5. Additional findings as above. ACT 112: Negative or not required by law. Electronically signed by: Jv Carrasquillo M.D. 07/03/2022 9:25 PM
--- NOTE | 2022-07-03 23:36 | History & Physical Report ---
Date of Service July 03, 2022 Assessment & Plan (1) Closed compression fracture of L1 vertebra: Plan: 67yo female with history of DM, HTN and HLP presenting after a ground level fall 4 days ago. Patient with persistent back pain since the fall. She has been able to walk, although with pain. No additional complaints at this time. Found to have closed compression fracture of L1. Patient initially considered for discharge home with pain control. 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 She prefers being evaluated for possible rehabilitation needs. -Admit to medical -PT/OT evaluation -Tylenol PRN -Oxycodone 5mg po q 4 hours PRN -Colace and Miralax PRN (2) Ambulatory dysfunction: Plan: Patient reports worsening balance over the last several days. No focal complaints. She does use a walker at home for ambulatory assistance. Has diabetic neuropathy. -PT/OT evaluation appreciated -Fall precautions (3) Diabetes mellitus with diabetic polyneuropathy: Plan: Patient with diabetes, fairly well controlled. Last KusF2T=2.4 on 12/23/21. She is on insulin degludec 46u qHS as well as liraglutide daily -Lantus 15u BID -ISS -Continue Lyrica 150mg po BID -Continue Cymbalta 60mg po BID (4) HTN (hypertension): Plan: Chronic. Blood pressure elevated in ER, presently 167/80 -Pain control -Continue Atenolol (5) RLS (restless legs syndrome): Plan: Chronic. Well controlled on medications. She follows with Neurology -Continue Topamax 25mg po BID -Continue Nortriptyline 25mg po qHS (6) GERD (gastroesophageal reflux disease): Plan: Chronic -Continue Prilosec History of Present Illness Chief Complaint: Fall, back pain Primary Care Provider: DO Gia Acuna Marga is a 67yo female with history of HTN, HLP and DM presenting from home after a fall sustained 4 days ago. Patient was getting groceries out of her car when she fell backwards onto her gravel driveway. She fell on her bottom and tipped backwards and hit the back of her head. She was able to get up with assistance and ambulate. No LOC. No chest pain, palpitations, dizziness or focal neurological deficits preceding or following the event. She has had persistent, progressive mid back pain since. She denies focal numbness/tingling or weakness. No bowel or bladder complaints. No additional complaints at this time. Patient lives at home with her and cats. Her son lives locally. She ambulates with a walker. 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 She does not fall frequently but does note that her balance has been getting worse, specifically over the last week. In the ER she is afebrile, HD stable. No complaints. ER Course: Dexamthasone 10mg IM Toradol 60mg IM Allergies Allergy/AdvReac Type Severity Reaction Status Date / Time tetanus toxoid, adsorbed Allergy Severe TROUBLE Verified 07/03/22 22:25 BREATHING Penicillins Allergy Mild ITCHINESS Verified 07/03/22 22:25 onion Allergy Unknown ? Verified 07/03/22 22:25 REACTION, ALLERGY SHOWN ON SKIN TEST orange Allergy Unknown PATCH Verified 07/03/22 22:25 TESTED HIVES REACTION tomato Allergy Unknown COUGHING Verified 07/03/22 22:25 morphine AdvReac Intermediate Gets wild Verified 07/03/22 22:25 and has the shakes meperidine AdvReac Mild NAUSEA AND Verified 07/03/22 22:25 VOMITING metformin AdvReac Mild diarrhea Verified 07/03/22 22:25 oxycodone AdvReac Mild Nausea/Vomi Verified 07/03/22 22:25 ting atorvastatin [From Lipitor] AdvReac Headache Verified 07/03/22 22:25 sulfamethoxazole AdvReac Unknown Verified 04/16/22 13:58 [From Bactrim] trimethoprim [From Bactrim] AdvReac Unknown Verified 04/16/22 13:58 Home Medications Medication Instructions Recorded Confirmed Type omega 9-yzz-nue-fish oil 1,000 mg 1,000 mg PO HS 06/20/18 07/03/22 History (120 mg-180 mg) capsule (Fish Oil) OneTouch Ultra2 Meter #1 ea 09/18/20 04/16/22 Rx (blood-glucose meter) blood sugar diagnostic (OneTouch #400 ea 09/19/20 04/16/22 Rx Ultra Blue Test Strip) lancets (OneTouch UltraSoft #400 ea 09/19/20 04/16/22 Rx Lancets) cholecalciferol (vitamin D3) 50 2,000 unit PO QAM 05/15/21 07/03/22 History mcg (2,000 unit) capsule Wheeled Walker #1 ea 07/09/21 04/16/22 Rx insulin degludec 100 unit/mL (3 46 unit (0.46 mL) subcut HS 30 12/29/21 07/03/22 Rx mL) subcutaneous pen (Tresiba days #15 mL FlexTouch U-100 insulin) nortriptyline 25 mg capsule 25 mg PO HS #30 caps 01/06/22 07/03/22 Rx (Pamelor) topiramate 25 mg tablet (Topamax) 25 mg PO BID #60 tabs 02/15/22 07/03/22 Rx BD Ultra-Fine Araceli Pen Needle 32 #200 ea 03/08/22 04/16/22 Rx gauge x 5/32" (pen needle, diabetic) omeprazole 40 mg capsule,delayed 40 mg PO QAM #90 caps 03/08/22 07/03/22 Rx release duloxetine 60 mg capsule,delayed 60 mg PO BID #60 caps 03/31/22 07/03/22 Rx release aspirin 81 mg tablet,delayed 81 mg PO HS 04/05/22 07/03/22 History release atenolol 25 mg tablet 25 mg PO QAM 04/05/22 07/03/22 History multivit with minerals-iron 18 1 tab PO QAM 04/05/22 07/03/22 History mg-folic ac 400 mcg-vit K 25 mcg tablet (Multi-Day Plus Minerals) pregabalin 150 mg capsule (Lyrica) 150 mg PO BID 04/05/22 07/03/22 History loratadine 10 mg tablet (Claritin) 10 mg PO DAILY #90 tabs 05/20/22 07/03/22 Rx Scooter #1 ea 06/02/22 Rx liraglutide 0.6 mg/0.1 mL (18 mg/3 1.8 mg (0.3 mL) subcut QAM #9 mL 06/11/22 07/03/22 Rx mL) subcutaneous pen injector hydrocodone 5 mg-acetaminophen 325 1 tab PO Q6H PRN pain #12 tabs 07/03/22 Rx mg tablet oxybutynin chloride 5 mg tablet 5 mg PO QAM 07/03/22 07/03/22 History oxybutynin chloride 5 mg tablet 10 mg PO QPM 07/03/22 07/03/22 History Past Med/Surg History Medical History (Updated 07/03/22 @ 23:39 by Frida Hernandez DO) Acquired claw toe of left foot Acquired claw toe of right foot Acquired hallux valgus of right foot Anemia Chest pain Colitis Diabetes mellitus with diabetic polyneuropathy Diabetic peripheral neuropathy associated with type 2 diabetes mellitus Diverticulitis Diverticulitis GERD (gastroesophageal reflux disease) Hallux valgus (acquired), left foot History of anesthesia reaction PT STATES SHE IS SLOW TO WAKE, NO DOCUMENTED ADVERSE REACTION History of cholecystitis HTN (hypertension) Hypertriglyceridemia Left knee DJD Microalbuminuria Nail complaint Osteoarthritis Right knee DJD RLS (restless legs syndrome) Type 2 diabetes mellitus with complication Urinary incontinence Vitamin D deficiency Surgical History History of cholecystectomy 12/28/17 History of total knee replacement R 2015, L 2016 History of total left hip arthroplasty 2007 S/P inguinal hernia repair S/P partial thyroidectomy S/P tonsillectomy S/P total hysterectomy Family History Mother Depression Diabetes Gallbladder disease Hypertension Lung cancer Father Lung cancer Bone cancer Grandmother Myocardial infarction Family/Other Breast cancer Ovarian cancer Denies family history of Prostate cancer Colorectal cancer Social History Smoking Status: Never smoker Cigarettes Per Day: TRIED OCC. 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; Second Hand Exposure: Yes; Hx Alcohol Use: No Hx Substance Use: No Preferred Language: Venezuelan Communication Ability: Effective Visual Impairment: No Limitations Hearing Ability: Normal Child Therapist Required: No Beliefs That Will Affect Care: None marital status: Current Living Situation: Spouse current occupational status: retired Feels Safe at Home: Yes Diet Comment: regular caffeine: Yes during the past year weight has: remained stable Dental Care, Regularly: Yes Physical Activity Frequency: 1-2 Times per Week Seatbelt Use: always Sunscreen Use: No Assistive Devices: Cane and Walker Review of Systems Review of Systems: All systems reviewed & are unremarkable except as noted in HPI & below Physical Exam Physical Exam: General: patient resting comfortably, NAD, non-toxic in appearance, AA&O x 4 Skin: warm, dry, intact, no rashes or lesions HEENT: NC/AT, PERRL, EOMI, anicteric sclera, conjunctiva without injection, ext ernal ear normal to inspection and nontender, nares patent, moist mucus membranes, dentition intact, no oropharyngeal lesions, neck supple, trachea midline, no LAD, no thyromegaly, no JVD Heart: +S1/S2, regular, no m/r/g Lungs: equal air entry bilaterally, no rales/rhonchi/wheezes Abd: +BS, soft, NT/ND, no masses/organomegaly/ascites Ext: warm, 2+ pulses in UE/LE bilaterally, no clubbing/cyanosis or edema Neuro: nonfocal, patient AA&O x 4, speech intact, no facial droop, moving all extremities on command with equal strength 5/5 Results & Data Results & Data ([facility]) Vital Signs (Past 12 Hours) Vital Signs Temp Pulse Pulse Resp BP BP Pulse Ox 07/03/22 22:00 74 18 167/80 H 98 07/03/22 19:00 74 18 172/93 H 96 07/03/22 18:19 85 18 164/93 H 97 07/03/22 16:04 36.2 C L 73 18 164/81 H 96 O2 Del Method 07/03/22 22:00 Room Air 07/03/22 19:00 Room Air 07/03/22 18:19 Room Air 07/03/22 16:04 Room Air Laboratory Results Impressions Abdomen/Pelvis CT 07/03/22 18:27 CT SCAN OF THE ABDOMEN AND PELVIS WITHOUT IV CONTRAST; CT SCAN OF THE LUMBAR SPINE WITHOUT IV CONTRAST CLINICAL HISTORY: Fall. Low back pain. COMPARISON STUDY: Abdominal CT dated 06/20/2018. TECHNIQUE: CT scan of the abdomen and pelvis is performed from the lung bases to the proximal femora. Additionally, CT scan of the lumbar spine is performed from the lower thoracic spine to the sacrum. Images for both examinations are reviewed in the axial, sagittal, and coronal planes. IV contrast was not administered for this examination as per the referring clinician. Note that the examination is significantly suboptimal without IV contrast in the setting of trauma. There is also streak artifact from the arms which could not be elevated above the abdomen. A dose lowering technique was utilized adhering to the principles of ALARA. CT DOSE: 3272.44 mGy.cm FINDINGS: Lung bases: The heart is normal in size and without pericardial effusion. There are coronary artery calcifications. A small hiatal hernia is noted. The lung bases are clear. Liver: The unenhanced liver is normal in size, contour, and attenuation. There is no intrahepatic biliary ductal dilatation. Gallbladder: Surgically absent noting clips in the gallbladder fossa. Spleen: Normal in size and attenuation. Pancreas: The unenhanced pancreas is moderately atrophic and grossly unremarkable. Adrenal glands: Unremarkable. Kidneys: The unenhanced kidneys demonstrate cortical atrophy and are without hydronephrosis. There are least 2 nonobstructing right renal calculi which measure up to 2 mm. No left renal calculi are identified and there is no ureteral stone. There is no evidence of contour deforming renal mass lesion. Abdominal vasculature: The abdominal aorta is normal in course and caliber. Bowel: There is [id number] colonic fecal retention. No bowel obstruction is seen. There are scattered colonic diverticula without CT evidence of acute diverticulitis. The appendix is well-visualized and normal. Peritoneum: There is no intraperitoneal free air or abdominal ascites. There is evidence of previous ventral hernia repair. There is laxity of the ventral abdominal/pelvic wall with protrusion of abdominal contents. Lymphadenopathy: None. Pelvic viscera: Evaluation of the pelvis is degraded by streak artifact from a left hip arthroplasty. The bladder is normal as visualized. The uterus is surgically absent. No adnexal lesion is seen. Skeletal structures: See below for dedicated discussion of the lumbar spine. The skeletal structures are osteopenic. No lytic or blastic lesions are seen. The bony pelvis and proximal femora appear intact. Arthritic changes noted in the right hip. A left hip arthroplasty is in place. LUMBAR SPINE: There is a minimal acute inferior endplate compression fracture of L1. Paravertebral edema is noted. No retropulsed fragments are identified. Vertebral body height is otherwise maintained throughout the lumbar spine. Alignment is preserved. No additional acute fracture is identified. Large anterior and lateral marginal osteophytes are seen throughout. The transverse and spinous processes are intact. There is no evidence of spondylolysis. There is moderate to advanced disc space narrowing at all levels between L2-L3 and L5- S1 with multilevel endplate sclerosis. Posterior disc osteophyte complexes are seen all lumbar levels and contribute to multilevel acquired compromise of the central canal. Facet arthropathy is noted in the lower lumbar region. There is fatty atrophy of the paraspinous musculature. IMPRESSION: 1. There is no evidence of solid organ injury in the abdomen or pelvis on this unenhanced examination. 2. There is a minimal acute inferior endplate compression fracture of L1. No retropulsed fragments are identified. 3. No additional acute fracture is seen. 4. Right-sided nephrolithiasis. 5. Additional findings as above. ACT 112: Negative or not required by law. Electronically signed by: Jv Carrasquillo M.D. 07/03/2022 9:[address] 07/03/22 18:27 CT SCAN OF THE CERVICAL SPINE CLINICAL HISTORY: Fall. Neck pain. COMPARISON STUDY: CT of the cervical spine dated 12/19/2018. TECHNIQUE: CT scan of the cervical spine is performed from the skull base to the upper thoracic spine. Images are reviewed in the axial, sagittal, and coronal planes. IV contrast was not administered for this examination. A dose lowering technique was utilized adhering to the principles of ALARA. FINDINGS: Skeletal structures: The skeletal structures are well mineralized. There is no evidence of fracture or subluxation involving the cervical spine. Vertebral body height and alignment are maintained. There is straightening of the cervical lordosis. Large anterior osteophytes are seen throughout. The odontoid process and lateral masses are intact. The atlantoaxial articulation is preserved noting productive degenerative change. The spinous processes appear intact. There is moderate multilevel cervical spondylosis. Uncovertebral and facet arthropathy contribute to neural foraminal narrowing at several levels. Intervertebral discs: There is moderate disc space narrowing at C5-C6, C6-C7, and C7-T1. Mild narrowing seen at the remaining cervical levels. Central canal: The posterior longitudinal ligament is thickened and densely calcified. Posterior disc osteophyte complex is at C5-C6, C6-C7 and C7-T1 in conjunction with the thickened posterior longitudinal ligament contributing to multilevel acquired compromise of the central canal Soft tissues: The prevertebral and paraspinous soft tissues are within normal limits. Calvarium: The visualized calvarium at the skull base appears intact. Brain parenchyma: Partially visualized brain parenchyma at the skull base is within normal limits. Sinuses and mastoids: The visualized paranasal sinuses are clear. The mastoid air cells are well pneumatized. Lung apices: Clear as visualized. IMPRESSION: 1. There is no evidence of fracture or subluxation involving the cervical spine. 2. Osteopenia and spondylotic change as above. ACT 112: Negative or not required by law. Electronically signed by: Jv Carrasquillo M.D. 07/03/2022 8:[address] 07/03/22 18:27 CT SCAN OF THE BRAIN WITHOUT IV CONTRAST CLINICAL HISTORY: Fall. COMPARISON STUDY: CT of the brain dated 09/23/2021 TECHNIQUE: Unenhanced axial CT scan of the brain is performed from the vertex to the skull base. A dose lowering technique was utilized adhering to the principles of ALARA. FINDINGS: Brain parenchyma: There is age-related involutional change noting mild subcortical and periventricular microangiopathic disease. There is no hemorrhage, mass effect, or evidence of acute territorial ischemia by CT criteria. Leach-white matter differentiation is preserved. No extra-axial fluid collection is seen. Ventricles, sulci, cisterns: Prominent secondary to involutional change. Intracranial vasculature: There is atherosclerotic calcification of the cavernous carotid arteries. Calvarium: The skeletal structures are osteopenic. No depressed calvarial fracture is identified. Sinuses and mastoids: The paranasal sinuses are clear. The mastoid air cells are well pneumatized. Orbits: The bony orbits are grossly intact. IMPRESSION: There is no hemorrhage, mass effect, or evidence of acute territorial ischemia by CT criteria. ACT 112: Negative or not required by law. Electronically signed by: Jv Carrasquillo M.D. 07/03/2022 8:[address] 07/03/22 18:27 CT SCAN OF THE ABDOMEN AND PELVIS WITHOUT IV CONTRAST; CT SCAN OF THE LUMBAR SPINE WITHOUT IV CONTRAST CLINICAL HISTORY: Fall. Low back pain. COMPARISON STUDY: Abdominal CT dated 06/20/2018. TECHNIQUE: CT scan of the abdomen and pelvis is performed from the lung bases to the proximal femora. Additionally, CT scan of the lumbar spine is performed from the lower thoracic spine to the sacrum. Images for both examinations are reviewed in the axial, sagittal, and coronal planes. IV contrast was not administered for this examination as per the referring clinician. Note that the examination is significantly suboptimal without IV contrast in the setting of trauma. There is also streak artifact from the arms which could not be elevated above the abdomen. A dose lowering technique was utilized adhering to the principles of ALARA. CT DOSE: 3272.44 mGy.cm FINDINGS: Lung bases: The heart is normal in size and without pericardial effusion. There are coronary artery calcifications. A small hiatal hernia is noted. The lung bases are clear. Liver: The unenhanced liver is normal in size, contour, and attenuation. There is no intrahepatic biliary ductal dilatation. Gallbladder: Surgically absent noting clips in the gallbladder fossa. Spleen: Normal in size and attenuation. Pancreas: The unenhanced pancreas is moderately atrophic and grossly unremarkable. Adrenal glands: Unremarkable. Kidneys: The unenhanced kidneys demonstrate cortical atrophy and are without hydronephrosis. There are least 2 nonobstructing right renal calculi which measure up to 2 mm. No left renal calculi are identified and there is no ureteral stone. There is no evidence of contour deforming renal mass lesion. Abdominal vasculature: The abdominal aorta is normal in course and caliber. Bowel: There is [id number] colonic fecal retention. No bowel obstruction is seen. There are scattered colonic diverticula without CT evidence of acute diverticulitis. The appendix is well-visualized and normal. Peritoneum: There is no intraperitoneal free air or abdominal ascites. There is evidence of previous ventral hernia repair. There is laxity of the ventral abdominal/pelvic wall with protrusion of abdominal contents. Lymphadenopathy: None. Pelvic viscera: Evaluation of the pelvis is degraded by streak artifact from a left hip arthroplasty. The bladder is normal as visualized. The uterus is surgically absent. No adnexal lesion is seen. Skeletal structures: See below for dedicated discussion of the lumbar spine. The skeletal structures are osteopenic. No lytic or blastic lesions are seen. The bony pelvis and proximal femora appear intact. Arthritic changes noted in the right hip. A left hip arthroplasty is in place. LUMBAR SPINE: There is a minimal acute inferior endplate compression fracture of L1. Paravertebral edema is noted. No retropulsed fragments are identified. V ertebral body height is otherwise maintained throughout the lumbar spine. Alignment is preserved. No additional acute fracture is identified. Large anterior and lateral marginal osteophytes are seen throughout. The transverse and spinous processes are intact. There is no evidence of spondylolysis. There is moderate to advanced disc space narrowing at all levels between L2-L3 and L5- S1 with multilevel endplate sclerosis. Posterior disc osteophyte complexes are seen all lumbar levels and contribute to multilevel acquired compromise of the central canal. Facet arthropathy is noted in the lower lumbar region. There is fatty atrophy of the paraspinous musculature. IMPRESSION: 1. There is no evidence of solid organ injury in the abdomen or pelvis on this unenhanced examination. 2. There is a minimal acute inferior endplate compression fracture of L1. No retropulsed fragments are identified. 3. No additional acute fracture is seen. 4. Right-sided nephrolithiasis. 5. Additional findings as above. ACT 112: Negative or not required by law. Electronically signed by: Jv Carrasquillo M.D. 07/03/2022 9:25 PM Code Status & VTE Plan VTE Prophylaxis Plan VTE Prophylaxis will be ordered: No PG Care Time/CCT Total # of Minutes Spent Total Time Spent with Patient: Total time spent is greater than 50% in coordination of care (as documented) at patient's floor/unit and/or counseling patient: Coding Level of Care Code 61255 Initial Inpt Care Lvl 3 Diagnoses Closed compression fracture of L1 vertebra S32.010A Ambulatory dysfunction R26.2 Diabetes mellitus with diabetic polyneuropathy E11.42 HTN (hypertension) I10 Hypertension type: essential hypertension RLS (restless legs syndrome) G25.81 GERD (gastroesophageal reflux disease) K21.9 (1) HTN (hypertension) Hypertension type: essential hypertension Qualified Code(s): I10 - Essential (primary) hypertension
[2022-07-03] MEDS ORDERED: TOPIRAMATE 25 MG TAB PO STA (23:52)
[2022-07-03] MEDS ORDERED: ASPIRIN 81 MG ECTAB PO STA (23:52)
[2022-07-03] MEDS ORDERED: NORTRIPTYLINE HCL 25 MG CAP PO STA (23:52)
[2022-07-03] MEDS ORDERED: DULoxetine HCL 60 MG CAP PO STA (23:52)
[2022-07-03] MEDS ORDERED: OXYBUTYNIN CHLORIDE 5 MG TAB PO STA (23:52)
[2022-07-03] MEDS ORDERED: PREGABALIN 150 MG CAP PO STA (23:52)
[2022-07-04] MEDS ORDERED: OXYBUTYNIN CHLORIDE XL 5 MG TABCR PO STA (00:16)
[2022-07-04] MEDS ORDERED: GLUCOSE 40% GEL 15 GM TUBE PO PRN (02:49)
[2022-07-04] MEDS ORDERED: GLUCOSE 10 TAB/TUBE PO PRN (02:49)
[2022-07-04] MEDS ORDERED: POLYETHYLENE (MIRALAX) 17 GM PACK PO PRN (02:49)
[2022-07-04] MEDS ORDERED: GLUCAGON FOR INJ 1 MG VIAL SQ PRN (02:49)
[2022-07-04] MEDS ORDERED: CARBOHYDRATES FOR HYPOGLYCEMIA PO PRN (02:49)
[2022-07-04] MEDS ORDERED: oxyCODONE HCL IR 5 MG TAB (IMMEDIATE RELEASE) PO PRN (02:49)
[2022-07-04] MEDS ORDERED: DEXTROSE 50% 50 ML SYRINGE IV PRN (02:49)
[2022-07-04] MEDS ORDERED: DOCUSATE SODIUM 100 MG CAP PO PRN (02:49)
[2022-07-04] MEDS: ACETAMINOPHEN 325 MG TAB PO PRN ×3 (03:11→13:52)
[2022-07-04] MEDS ORDERED: LANTUS PER UNIT CHARGE SQ STA (03:30)
[2022-07-04] MEDS ORDERED: INSULIN ASPART PER UNIT SC STA (03:31)
[2022-07-04] MEDS ORDERED: PNEUMOCOCCAL Polysaccharide Vaccine 25mcg/0.5mL vial/Syr IM ONE (04:30)
[2022-07-04 06:27] LABS: Hematocrit (blood only) 43.7 % (34.1-44.9); Mean Corpuscular Hemoglobin 31.5 pg (25.0-34.0); Mean Corpuscular Hgb Conc 34.3 g/dL (32.0-36.0); Mean Corpuscular Volume 91.8 fL (80.0-100.0); RDW Coefficient of Variation 12.2 % (11.5-14.5); RDW Standard Deviation 41.4 fL (36.4-46.3); Red Blood Count 4.76 M/uL (3.93-5.22); White Blood Count 10.64 K/ul (4.8-10.8)
[2022-07-04 06:50] LABS: Mean Platelet Volume 13.4 fL (9.4-12.3); Platelet Count 149 K/uL (130-400)
[2022-07-04 07:05] LABS: Albumin Level 3.6 gm/dl (3.4-5.0); BUN Creatinine Ratio 19.7 (10-20); Bilirubin Direct 0.2 mg/dl (0-0.2); Bilirubin,Total 0.7 mg/dl (0.2-1.0); Calcium 9.1 mg/dl (8.5-10.1); Creatinine Clr Calc Pharmacy 96.3 ml/min; Est GFR (African American) 105.9 ml/min; Est GFR (Non-African American) 91.4 ml/min; Magnesium 1.9 mg/dl (1.7-2.4); Phosphorus 2.6 mg/dl (2.5-4.9); Potassium 3.6 mmol/L (3.5-5.1)
[2022-07-04] MEDS: OXYBUTYNIN CHLORIDE XL 5 MG TABCR PO SCH ×2 (09:00→20:18)
[2022-07-04] MEDS: DULoxetine HCL 60 MG CAP PO SCH ×2 (09:00→20:16)
[2022-07-04] MEDS: PANTOprazole 40 MG TAB PO SCH (09:00)
[2022-07-04] MEDS: ATENOLOL 25 MG TABLET PO SCH (09:00)
[2022-07-04] MEDS: TOPIRAMATE 25 MG TAB PO SCH ×2 (09:00→20:17)
[2022-07-04] MEDS: INSULIN ASPART PER UNIT SC SCH ×4 (09:01→21:41)
[2022-07-04] MEDS: LANTUS PER UNIT CHARGE SQ SCH ×2 (09:05→21:41)
[2022-07-04] MEDS: PREGABALIN 150 MG CAP PO SCH ×2 (09:05→20:15)
--- NOTE | 2022-07-04 09:33 | Orthopedic Consultation ---
Date of Consultation July 04, 2022 Assessment & Plan (1) Closed compression fracture of L1 vertebra: At this time the patient is comfortable. I recommend that we initiate a course of physical therapy for transfers and ambulation. I discussed possible bracing however in light of her body habitus this may be more of a hindrance than a help. We will see if she does without a brace. I did recommend she lift no more than 2 to 3 pounds. Patient stands agrees. History of Present Illness Reason for Consultation: Back pain Attending Physician: Cheko Rodriguez History of Present Illness This is a very pleasant 67-year-old female who presents with back pain after fall at home. She states this morning she is comfortable. She notes some discomfort with transitions from bed to chair but is quite comfortable sitting at this time. She denies any numbness and tingling lower extremities. Denies any radicular pain. Allergies Allergy/AdvReac Type Severity Reaction Status Date / Time tetanus toxoid, adsorbed Allergy Severe TROUBLE Verified 07/03/22 22:25 BREATHING Penicillins Allergy Mild ITCHINESS Verified 07/03/22 22:25 onion Allergy Unknown ? Verified 07/03/22 22:25 REACTION, ALLERGY SHOWN ON SKIN TEST orange Allergy Unknown PATCH Verified 07/03/22 22:25 TESTED HIVES REACTION tomato Allergy Unknown COUGHING Verified 07/03/22 22:25 morphine AdvReac Intermediate Gets wild Verified 07/03/22 22:25 and has the shakes meperidine AdvReac Mild NAUSEA AND Verified 07/03/22 22:25 VOMITING metformin AdvReac Mild diarrhea Verified 07/03/22 22:25 oxycodone AdvReac Mild Nausea/Vomi Verified 07/03/22 22:25 ting atorvastatin [From Lipitor] AdvReac Headache Verified 07/03/22 22:25 sulfamethoxazole AdvReac Unknown Verified 04/16/22 13:58 [From Bactrim] trimethoprim [From Bactrim] AdvReac Unknown Verified 04/16/22 13:58 Home Medications Medication Instructions Recorded Confirmed Type omega 8-hxx-eiu-fish oil 1,000 mg 1,000 mg PO HS 06/20/18 07/03/22 History (120 mg-180 mg) capsule (Fish Oil) [employer] Ultra2 Meter #1 ea 09/18/20 04/16/22 Rx (blood-glucose meter) blood sugar diagnostic (OneTouch #400 ea 09/19/20 04/16/22 Rx Ultra Blue Test Strip) lancets (OneTouch UltraSoft #400 ea 09/19/20 04/16/22 Rx Lancets) cholecalciferol (vitamin D3) 50 2,000 unit PO QAM 05/15/21 07/03/22 History mcg (2,000 unit) capsule Wheeled Walker #1 ea 07/09/21 04/16/22 Rx insulin degludec 100 unit/mL (3 46 unit (0.46 mL) subcut HS 30 12/29/21 07/03/22 Rx mL) subcutaneous pen (Tresiba #15 mL FlexTouch U-100 insulin) nortriptyline 25 mg capsule 25 mg PO HS #30 caps 01/06/22 07/03/22 Rx (Pamelor) topiramate 25 mg tablet (Topamax) 25 mg PO BID #60 tabs 02/15/22 07/03/22 Rx BD Ultra-Fine Araceli Pen Needle 32 #200 ea 03/08/22 04/16/22 Rx gauge x 5/32" (pen needle, diabetic) omeprazole 40 mg capsule,delayed 40 mg PO QAM #90 caps 03/08/22 07/03/22 Rx release duloxetine 60 mg capsule,delayed 60 mg PO BID #60 caps 03/31/22 07/03/22 Rx release aspirin 81 mg tablet,delayed 81 mg PO HS 04/05/22 07/03/22 History release atenolol 25 mg tablet 25 mg PO QAM 04/05/22 07/03/22 History multivit with minerals-iron 18 1 tab PO QAM 04/05/22 07/03/22 History mg-folic ac 400 mcg-vit K 25 mcg tablet (Multi-Day Plus Minerals) pregabalin 150 mg capsule (Lyrica) 150 mg PO BID 04/05/22 07/03/22 History loratadine 10 mg tablet (Claritin) 10 mg PO DAILY #90 tabs 05/20/22 07/03/22 Rx Scooter #1 ea 06/02/22 Rx liraglutide 0.6 mg/0.1 mL (18 mg/3 1.8 mg (0.3 mL) subcut QAM #9 mL 06/11/22 07/03/22 Rx mL) subcutaneous pen injector hydrocodone 5 mg-acetaminophen 325 1 tab PO Q6H PRN pain #12 tabs 07/03/22 Rx mg tablet oxybutynin chloride 5 mg tablet 5 mg PO QAM 07/03/22 07/03/22 History oxybutynin chloride 5 mg tablet 10 mg PO QPM 07/03/22 07/03/22 History Patient History Medical History Acquired claw toe of left foot Acquired claw toe of right foot Acquired hallux valgus of right foot Anemia Chest pain Colitis Diabetes mellitus with diabetic polyneuropathy Diabetic peripheral neuropathy associated with type 2 diabetes mellitus Diverticulitis Diverticulitis GERD (gastroesophageal reflux disease) Hallux valgus (acquired), left foot History of anesthesia reaction PT STATES SHE IS SLOW TO WAKE, NO DOCUMENTED ADVERSE REACTION History of cholecystitis HTN (hypertension) Hypertriglyceridemia Left knee DJD Microalbuminuria Nail complaint Osteoarthritis Right knee DJD RLS (restless legs syndrome) Type 2 diabetes mellitus with complication Urinary incontinence Vitamin D deficiency Surgical History History of cholecystectomy 12/28/17 History of total knee replacement R 2015, L 2017 History of total left hip arthroplasty 2007 S/P inguinal hernia repair S/P partial thyroidectomy S/P tonsillectomy S/P total hysterectomy Family History Mother Depression Diabetes Gallbladder disease Hypertension Lung cancer Father Lung cancer Bone cancer Grandmother Myocardial infarction Family/Other Breast cancer cousin Ovarian cancer Denies family history of Prostate cancer Colorectal cancer Social History Smoking Status: Never smoker Cigarettes Per Day: TRIED OCC. 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; Second Hand Exposure: Yes; Hx Alcohol Use: No Hx Substance Use: No Preferred Language: Sammarinese Communication Ability: Effective Visual Impairment: No Limitations Hearing Ability: Normal Application Internship Required: No Beliefs That Will Affect Care: None marital status: Current Living Situation: Spouse current occupational status: retired Feels Safe at Home: Yes Diet Comment: regular caffeine: Yes during the past year weight has: remained stable Dental Care, Regularly: Yes Physical Activity Frequency: 1-2 Times per Week Seatbelt Use: always Sunscreen Use: No Assistive Devices: Walker Physical Exam Physical Exam: On exam patient is in the chair at the bedside. She is eating. He appears comfortable. She has good strength testing lower extremities. Sensory symmetric and intact: Light touch. Results & Data ([facility]) Vital Signs (Past 12 Hours) Vital Signs Temp Pulse Resp BP Pulse Ox O2 Del Method 07/04/22 08:24 36.7 C 97 H 18 161/93 H 93 Room Air 07/04/22 02:49 36.5 C 83 18 183/85 H 93 Room Air 07/04/22 02:00 68 16 138/78 96 Room Air 07/03/22 22:00 74 18 167/80 H 98 Room Air
[2022-07-04] MEDS: ACETAMINOPHEN 325 MG TAB PO SCH ×2 (17:39→20:15)
[2022-07-04] MEDS: ASPIRIN 81 MG ECTAB PO SCH (20:16)
[2022-07-04] MEDS: NORTRIPTYLINE HCL 25 MG CAP PO SCH (20:17)
--- NOTE | 2022-07-04 21:37 | Hospitalist Progress Note ---
Date of Service July 04, 2022 Assessment & Plan (1) Closed compression fracture of L1 vertebra: Plan: 67yo female with history of DM, HTN and HLP presenting after a ground level fall 4 days ago. Patient with persistent back pain since the fall. She has been able to walk, although with pain. No additional complaints at this time. Found to have closed compression fracture of L1. Patient initially considered for discharge home with pain control. 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 She prefers being evaluated for possible rehabilitation needs. -Admit to medical -PT/OT evaluation -Tylenol PRN -Oxycodone 5mg po q 4 hours PRN -Appreciate input from DR. Morales, await input from PT/OT -Colace and Miralax PRN (2) Ambulatory dysfunction: Plan: Patient reports worsening balance over the last several days. No focal complaints. She does use a walker at home for ambulatory assistance. Has diabetic neuropathy. -PT/OT evaluation appreciated -Fall precautions (3) Diabetes mellitus with diabetic polyneuropathy: Plan: Patient with diabetes, fairly well controlled. Last BitC8V=5.4 on 12/23/21. She is on insulin degludec 46u qHS as well as liraglutide daily -Lantus 15u BID -ISS -Continue Lyrica 150mg po BID -Continue Cymbalta 60mg po BID (4) HTN (hypertension): Plan: Chronic. Blood pressure elevated in ER, presently 167/80 -Pain control -Continue Atenolol (5) RLS (restless legs syndrome): Plan: Chronic. Well controlled on medications. She follows with Neurology -Continue Topamax 25mg po BID -Continue Nortriptyline 25mg po qHS (6) GERD (gastroesophageal reflux disease): Plan: Chronic -Continue Prilosec Admission and Anticipated Discharge Date Admission Date: July 03, 2022 Subjective Patient is comfortable in bed. Pain is controlled Review of Systems Review of Systems: All systems reviewed & are unremarkable except as noted in HPI & below Physical Exam Physical Exam: General: patient resting comfortably, NAD, non-toxic in appearance, AA&O x 4 Skin: warm, dry, intact, no rashes or lesions HEENT: NC/AT, PERRL, EOMI, anicteric sclera, conjunctiva without injection, external ear normal to inspection and nontender, nares patent, moist mucus membranes, dentition intact, no oropharyngeal lesions, neck supple, trachea midline, no LAD, no thyromegaly, no JVD Heart: +S1/S2, regular, no m/r/g Lungs: equal air entry bilaterally, no rales/rhonchi/wheezes Abd: +BS, soft, NT/ND, no masses/organomegaly/ascites Ext: warm, 2+ pulses in UE/LE bilaterally, no clubbing/cyanosis or edema Neuro: nonfocal, patient AA&O x 4, speech intact, no facial droop, moving all extremities on command with equal strength 5/5 Results & Data Results & Data ([facility]) Vital Signs (Past 12 Hours) Vital Signs Temp Pulse Resp BP Pulse Ox O2 Del Method 07/04/22 15:07 36.4 C L 74 18 149/72 H 94 Room Air PG Care Time/CCT Total # of Minutes Spent Total Time Spent with Patient: Total time spent is greater than 50% in coordination of care (as documented) at patient's floor/unit and/or counseling patient: Coding Level of Care Code 81022 Subseq Hosp Care Lvl 2 Diagnoses Closed compression fracture of L1 vertebra S32.010A Ambulatory dysfunction R26.2 Diabetes mellitus with diabetic polyneuropathy E11.42 HTN (hypertension) I10 Hypertension type: essential hypertension RLS (restless legs syndrome) G25.81 GERD (gastroesophageal reflux disease) K21.9 Time Spent (min) 25 (1) HTN (hypertension) Hypertension type: essential hypertension Qualified Code(s): I10 - Essential (primary) hypertension
[2022-07-05] MEDS: LIDOCAINE 5% 1 PATCH TD SCH (06:02)
[2022-07-05] MEDS: INSULIN ASPART PER UNIT SC SCH ×4 (08:43→20:38)
[2022-07-05] MEDS: LANTUS PER UNIT CHARGE SQ SCH ×2 (08:45→20:38)
[2022-07-05] MEDS: ACETAMINOPHEN 325 MG TAB PO SCH ×4 (09:08→21:27)
[2022-07-05] MEDS: TOPIRAMATE 25 MG TAB PO SCH ×2 (09:09→20:31)
[2022-07-05] MEDS: ATENOLOL 25 MG TABLET PO SCH (09:10)
[2022-07-05] MEDS: DULoxetine HCL 60 MG CAP PO SCH ×2 (09:10→20:30)
[2022-07-05] MEDS: PANTOprazole 40 MG TAB PO SCH (09:10)
[2022-07-05] MEDS: OXYBUTYNIN CHLORIDE XL 5 MG TABCR PO SCH ×2 (09:11→20:31)
[2022-07-05] MEDS: PREGABALIN 150 MG CAP PO SCH ×2 (09:12→20:33)
[2022-07-05] MEDS ORDERED: traMADol HCL 50 MG TABLET PO STA (11:12)
[2022-07-05] MEDS: CALCITONIN SALMON NA 200 IU/AC 3.7 ML BTL SCH (13:01)
[2022-07-05] MEDS: ASPIRIN 81 MG ECTAB PO SCH (20:30)
[2022-07-05] MEDS: NORTRIPTYLINE HCL 25 MG CAP PO SCH (20:31)
[2022-07-05] MEDS: traMADol HCL 50 MG TABLET PO PRN (21:26)
--- NOTE | 2022-07-05 22:04 | Hospitalist Progress Note ---
Date of Service July 05, 2022 Assessment & Plan (1) Closed compression fracture of L1 vertebra: Plan: 67yo female with history of DM, HTN and HLP presenting after a ground level fall 4 days ago. Patient with persistent back pain since the fall. She has been able to walk, although with pain. No additional complaints at this time. Found to have closed compression fracture of L1. Patient initially considered for discharge home with pain control. 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 She prefers being evaluated for possible rehabilitation needs. -Admit to medical -PT/OT evaluation -Tylenol PRN -Patient not tolerating oxycodone, will place on tramadol and monitor -Appreciate input from DR. Morales, -PT/OT recommending placement. -Colace and Miralax PRN (2) Ambulatory dysfunction: Plan: Patient reports worsening balance over the last several days. No focal complaints. She does use a walker at home for ambulatory assistance. Has diabetic neuropathy. -PT/OT evaluation appreciated -Fall precautions (3) Diabetes mellitus with diabetic polyneuropathy: Plan: Patient with diabetes, fairly well controlled. Last BceB4B=4.4 on 12/23/21. She is on insulin degludec 46u qHS as well as liraglutide daily -Lantus 15u BID -ISS -Continue Lyrica 150mg po BID -Continue Cymbalta 60mg po BID (4) HTN (hypertension): Plan: Chronic. Blood pressure elevated in ER, presently 167/80 -Pain control -Continue Atenolol (5) RLS (restless legs syndrome): Plan: Chronic. Well controlled on medications. She follows with Neurology -Continue Topamax 25mg po BID -Continue Nortriptyline 25mg po qHS (6) GERD (gastroesophageal reflux disease): Plan: Chronic -Continue Prilosec Admission and Anticipated Discharge Date Admission Date: July 03, 2022 Subjective Patient reports having worsening pain. Review of Systems Review of Systems: All systems reviewed & are unremarkable except as noted in HPI & below Physical Exam Physical Exam: General: patient resting comfortably, NAD, non-toxic in appearance, AA&O x 4 Skin: warm, dry, intact, no rashes or lesions HEENT: NC/AT, PERRL, EOMI, anicteric sclera, conjunctiva without injection, external ear normal to inspection and nontender, nares patent, moist mucus membranes, dentition intact, no oropharyngeal lesions, neck supple, trachea midline, no LAD, no thyromegaly, no JVD Heart: +S1/S2, regular, no m/r/g Lungs: equal air entry bilaterally, no rales/rhonchi/wheezes Abd: +BS, soft, NT/ND, no masses/organomegaly/ascites Ext: warm, 2+ pulses in UE/LE bilaterally, no clubbing/cyanosis or edema Neuro: nonfocal, patient AA&O x 4, speech intact, no facial droop, moving all extremities on command with equal strength 5/5 Results & Data Results & Data ([facility]) Vital Signs (Past 12 Hours) Vital Signs Temp Pulse Resp BP Pulse Ox O2 Del Method 07/05/22 21:36 36.7 C 64 16 132/82 96 Room Air 07/05/22 14:44 36.4 C L 74 18 152/84 H 94 Room Air 07/05/22 11:02 36.4 C L 68 16 143/84 H 98 Room Air PG Care Time/CCT Total # of Minutes Spent Total Time Spent with Patient: Total time spent is greater than 50% in coordination of care (as documented) at patient's floor/unit and/or counseling patient: Coding Level of Care Code 82929 Subseq Hosp Care Lvl 2 Diagnoses Closed compression fracture of L1 vertebra S32.010A Ambulatory dysfunction R26.2 Diabetes mellitus with diabetic polyneuropathy E11.42 HTN (hypertension) I10 Hypertension type: essential hypertension RLS (restless legs syndrome) G25.81 GERD (gastroesophageal reflux disease) K21.9 Time Spent (min) 25 (1) HTN (hypertension) Hypertension type: essential hypertension Qualified Code(s): I10 - Essential (primary) hypertension
[2022-07-06 08:11] LABS: Hematocrit (blood only) 42.8 % (34.1-44.9); Hemoglobin 14.4 g/dl (12.0-16.0); Mean Corpuscular Hemoglobin 31.8 pg (25.0-34.0); Mean Corpuscular Hgb Conc 33.6 g/dL (32.0-36.0); Mean Corpuscular Volume 94.5 fL (80.0-100.0); Platelet Count 181 K/uL (130-400); RDW Coefficient of Variation 12.7 % (11.5-14.5); RDW Standard Deviation 44.1 fL (36.4-46.3); Red Blood Count 4.53 M/uL (3.93-5.22); White Blood Count 8.17 K/ul (4.8-10.8)
[2022-07-06] MEDS: INSULIN ASPART PER UNIT SC SCH ×4 (08:27→21:01)
[2022-07-06] MEDS: PREGABALIN 150 MG CAP PO SCH ×2 (08:27→20:58)
[2022-07-06] MEDS: LANTUS PER UNIT CHARGE SQ SCH ×2 (08:27→21:00)
[2022-07-06] MEDS: TOPIRAMATE 25 MG TAB PO SCH ×2 (08:28→21:00)
[2022-07-06] MEDS: DULoxetine HCL 60 MG CAP PO SCH ×2 (08:28→20:59)
[2022-07-06] MEDS: PANTOprazole 40 MG TAB PO SCH (08:28)
[2022-07-06] MEDS: ACETAMINOPHEN 325 MG TAB PO SCH ×4 (08:28→20:58)
[2022-07-06] MEDS: OXYBUTYNIN CHLORIDE XL 5 MG TABCR PO SCH ×2 (08:28→20:59)
[2022-07-06] MEDS: ATENOLOL 25 MG TABLET PO SCH (08:28)
[2022-07-06] MEDS: CALCITONIN SALMON NA 200 IU/AC 3.7 ML BTL SCH (08:29)
[2022-07-06] MEDS: LIDOCAINE 5% 1 PATCH TD SCH (08:29)
[2022-07-06 08:58] LABS: BUN Creatinine Ratio 26.1 (10-20); Calcium 8.7 mg/dl (8.5-10.1); Creatinine Clr Calc Pharmacy 92.1 ml/min; Est GFR (African American) 104.4 ml/min; Est GFR (Non-African American) 90.1 ml/min; Potassium 3.7 mmol/L (3.5-5.1)
[2022-07-06] MEDS: traMADol HCL 50 MG TABLET PO PRN (10:19)
--- NOTE | 2022-07-06 20:13 | Hospitalist Progress Note ---
Date of Service July 06, 2022 Assessment & Plan (1) Closed compression fracture of L1 vertebra: Plan: 67yo female with history of DM, HTN and HLP presenting after a ground level fall 4 days ago. Patient with persistent back pain since the fall. She has been able to walk, although with pain. No additional complaints at this time. Found to have closed compression fracture of L1. Patient initially considered for discharge home with pain control. 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 She prefers being evaluated for possible rehabilitation needs. -Admit to medical -PT/OT evaluation -Tylenol PRN -Patient not tolerating oxycodone, will place on tramadol and monitor -Appreciate input from DR. Morales, -PT/OT recommending placement. Plan to discharge tomorrow. -continue miralax but will switch to scheduled in AM. (2) Ambulatory dysfunction: Plan: Patient reports worsening balance over the last several days. No focal complaints. She does use a walker at home for ambulatory assistance. Has diabetic neuropathy. -PT/OT evaluation appreciated -Fall precautions (3) Diabetes mellitus with diabetic polyneuropathy: Plan: Patient with diabetes, fairly well controlled. Last LmyP1H=9.4 on 12/23/21. She is on insulin degludec 46u qHS as well as liraglutide daily -Lantus 15u BID -ISS -Continue Lyrica 150mg po BID -Continue Cymbalta 60mg po BID (4) HTN (hypertension): Plan: Chronic. Blood pressure elevated in ER, presently 167/80 -Pain control -Continue Atenolol (5) RLS (restless legs syndrome): Plan: Chronic. Well controlled on medications. She follows with Neurology -Continue Topamax 25mg po BID -Continue Nortriptyline 25mg po qHS (6) GERD (gastroesophageal reflux disease): Plan: Chronic -Continue Prilosec Admission and Anticipated Discharge Date Admission Date: July 03, 2022 Subjective 67 yo female reports that her pain is better controlled. Review of Systems Review of Systems: All systems reviewed & are unremarkable except as noted in HPI & below Physical Exam Physical Exam: General: patient resting comfortably, NAD, non-toxic in appearance, AA&O x 4 Skin: warm, dry, intact, no rashes or lesions HEENT: NC/AT, PERRL, EOMI, anicteric sclera, conjunctiva without injection, external ear normal to inspection and nontender, nares patent, moist mucus membranes, dentition intact, no oropharyngeal lesions, neck supple, trachea midline, no LAD, no thyromegaly, no JVD Heart: +S1/S2, regular, no m/r/g Lungs: equal air entry bilaterally, no rales/rhonchi/wheezes Abd: +BS, soft, NT/ND, no masses/organomegaly/ascites Ext: warm, 2+ pulses in UE/LE bilaterally, no clubbing/cyanosis or edema Neuro: nonfocal, patient AA&O x 4, speech intact, no facial droop, moving all extremities on command with equal strength 5/5 Results & Data Results & Data ([facility]) Vital Signs (Past 12 Hours) Vital Signs Temp Pulse Resp BP Pulse Ox O2 Del Method 07/06/22 14:47 36.5 C 60 18 126/61 94 Room Air 07/06/22 09:42 Room Air PG Care Time/CCT Total # of Minutes Spent Total Time Spent with Patient: Total time spent is greater than 50% in coordination of care (as documented) at patient's floor/unit and/or counseling patient: Coding Level of Care Code 78099 Subseq Hosp Care Lvl 2 Diagnoses Closed compression fracture of L1 vertebra S32.010A Ambulatory dysfunction R26.2 Diabetes mellitus with diabetic polyneuropathy E11.42 HTN (hypertension) I10 Hypertension type: essential hypertension RLS (restless legs syndrome) G25.81 GERD (gastroesophageal reflux disease) K21.9 Time Spent (min) 25 Comment updated family (1) HTN (hypertension) Hypertension type: essential hypertension Qualified Code(s): I10 - Essential (primary) hypertension
[2022-07-06] MEDS: ASPIRIN 81 MG ECTAB PO SCH (20:58)
[2022-07-06] MEDS: NORTRIPTYLINE HCL 25 MG CAP PO SCH (20:59)
[2022-07-07 06:48] LABS: Hematocrit (blood only) 41.2 % (34.1-44.9); Hemoglobin 13.9 g/dl (12.0-16.0); Mean Corpuscular Hemoglobin 31.7 pg (25.0-34.0); Mean Corpuscular Hgb Conc 33.7 g/dL (32.0-36.0); Mean Corpuscular Volume 94.1 fL (80.0-100.0); Mean Platelet Volume 11.4 fL (9.4-12.3); Platelet Count 177 K/uL (130-400); RDW Coefficient of Variation 12.7 % (11.5-14.5); RDW Standard Deviation 43.6 fL (36.4-46.3); Red Blood Count 4.38 M/uL (3.93-5.22)
[2022-07-07 07:16] LABS: BUN Creatinine Ratio 22.6 (10-20); Calcium 8.9 mg/dl (8.5-10.1); Creatinine Clr Calc Pharmacy 102.5 ml/min; Est GFR (African American) 108.1 ml/min; Est GFR (Non-African American) 93.3 ml/min; Potassium 3.8 mmol/L (3.5-5.1)
[2022-07-07] MEDS: LIDOCAINE 5% 1 PATCH TD SCH (08:30)
[2022-07-07] MEDS: ATENOLOL 25 MG TABLET PO SCH (08:31)
[2022-07-07] MEDS: TOPIRAMATE 25 MG TAB PO SCH (08:32)
[2022-07-07] MEDS: ACETAMINOPHEN 325 MG TAB PO SCH ×2 (08:32→12:33)
[2022-07-07] MEDS: CALCITONIN SALMON NA 200 IU/AC 3.7 ML BTL SCH (08:32)
[2022-07-07] MEDS: PANTOprazole 40 MG TAB PO SCH (08:32)
[2022-07-07] MEDS: DULoxetine HCL 60 MG CAP PO SCH (08:32)
[2022-07-07] MEDS: INSULIN ASPART PER UNIT SC SCH ×2 (08:33→12:32)
[2022-07-07] MEDS: OXYBUTYNIN CHLORIDE XL 5 MG TABCR PO SCH (08:33)
[2022-07-07] MEDS: LANTUS PER UNIT CHARGE SQ SCH (08:34)
[2022-07-07] MEDS: PREGABALIN 150 MG CAP PO SCH (08:37)
[2022-07-07] MEDS ORDERED: POLYETHYLENE (MIRALAX) 17 GM PACK PO SCH (09:00)
[2022-07-07] MEDS: traMADol HCL 50 MG TABLET PO PRN (14:49)
--- NOTE | 2022-07-22 09:53 | Discharge Summary ---
Date of Service July 07, 2022 Admission HPI Per Admitting Provider Gia Gresham is a 67yo female with history of HTN, HLP and DM presenting from home after a fall sustained 4 days ago. Patient was getting groceries out of her car when she fell backwards onto her gravel driveway. She fell on her bottom and tipped backwards and hit the back of her head. She was able to get up with assistance and ambulate. No LOC. No chest pain, palpitations, dizziness or focal neurological deficits preceding or following the event. She has had persistent, progressive mid back pain since. She denies focal numbness/tingling or weakness. No bowel or bladder complaints. No additional complaints at this time. Patient lives at home with her and cats. Her son lives locally. She ambulates with a walker. 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 She does not fall frequently but does note that her balance has been getting worse, specifically over the last week. In the ER she is afebrile, HD stable. No complaints. ER Course: Dexamthasone 10mg IM Toradol 60mg IM Principal Diagnosis closed compression fracture of L! Discharge Exam General: patient resting comfortably, NAD, non-toxic in appearance, AA&O x 4 Skin: warm, dry, intact, no rashes or lesions HEENT: NC/AT, PERRL, EOMI, anicteric sclera, conjunctiva without injection, external ear normal to inspection and nontender, nares patent, moist mucus membranes, dentition intact, no oropharyngeal lesions, neck supple, trachea midline, no LAD, no thyromegaly, no JVD Heart: +S1/S2, regular, no m/r/g Lungs: equal air entry bilaterally, no rales/rhonchi/wheezes Abd: +BS, soft, NT/ND, no masses/organomegaly/ascites Ext: warm, 2+ pulses in UE/LE bilaterally, no clubbing/cyanosis or edema Neuro: nonfocal, patient AA&O x 4, speech intact, no facial droop, moving all extremities on command with equal strength 5/5 Discharge Data Allergies Allergy/AdvReac Type Severity Reaction Status Date / Time tetanus toxoid, adsorbed Allergy Severe TROUBLE Verified 07/03/22 22:25 BREATHING Penicillins Allergy Mild ITCHINESS Verified 07/03/22 22:25 onion Allergy Unknown ? Verified 07/03/22 22:25 REACTION, ALLERGY SHOWN ON SKIN TEST orange Allergy Unknown PATCH Verified 07/03/22 22:25 TESTED HIVES REACTION tomato Allergy Unknown COUGHING Verified 07/03/22 22:25 morphine AdvReac Intermediate Gets wild Verified 07/03/22 22:25 and has the shakes meperidine AdvReac Mild NAUSEA AND Verified 07/03/22 22:25 VOMITING metformin AdvReac Mild diarrhea Verified 07/03/22 22:25 oxycodone AdvReac Mild Nausea/Vomi Verified 07/03/22 22:25 ting atorvastatin [From Lipitor] AdvReac Headache Verified 07/03/22 22:25 sulfamethoxazole AdvReac Unknown Verified 04/16/22 13:58 [From Bactrim] trimethoprim [From Bactrim] AdvReac Unknown Verified 04/16/22 13:58 Consultations 07/03/22 23:08 ED Decision to Admit Stat 07/04/22 08:41 Consult Orthopedic Surgery Routine Ordered Studies 07/03/22 18:27 CT abd pelvis wo con Stat CT cervical spine wo con Stat CT head/brain wo con Stat CT lumbar spine wo con Stat Hospital Course (1) Closed compression fracture of L1 vertebra: 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 Patient with persistent back pain since the fall. She has been able to walk, although with pain. No additional complaints at this time. Found to have closed compression fracture of L1. Patient initially considered for discharge home with pain control. 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 She prefers being evaluated for possible rehabilitation needs. -Admit to medical -PT/OT evaluation -Tylenol PRN -Patient not tolerating oxycodone, will place on tramadol and monitor -Appreciate input from DR. Morales, -PT/OT recommending placement. -Patient agreeable to discharge, Morbid obesity evidenced by a BMI of 41.3 recommend lifestyle changes (2) Ambulatory dysfunction: Patient reports worsening balance over the last several days. No focal complaints. She does use a walker at home for ambulatory assistance. Has diabetic neuropathy. -PT/OT evaluation appreciated -Fall precautions while hospitalized (3) Diabetes mellitus with diabetic polyneuropathy: Patient with diabetes, fairly well controlled. Last [id number]=2.4 on 12/23/21. She is on insulin degludec 46u qHS as well as liraglutide daily -Lantus 15u BID -ISS -Continue Lyrica 150mg po BID -Continue Cymbalta 60mg po BID (4) HTN (hypertension): Chronic. Blood pressure elevated in ER, presently 167/80 -Pain control -Continue Atenolol (5) RLS (restless legs syndrome): Chronic. Well controlled on medications. She follows with Neurology -Continue Topamax 25mg po BID -Continue Nortriptyline 25mg po qHS (6) GERD (gastroesophageal reflux disease): Chronic -Continue Prilosec Total Time Total Time Spent Total Time Spent (In Minutes): 35 Discharge Plan Discharge Items Patient Disposition: Transfer [facility] Reason For Visit: FALL, L1 ENDPLATE FRACTURE Discharge Diagnosis: fall Condition on Discharge: Good Activity: Resume your previous activity Non-emergency contact: Primary Care Provider Call non-emergency contact if: you have any medication questions Follow-up/Referrals: Mer Jack DO [Primary Care Provider] - Diet: Carb Consistent or DM2 and Heart Healthy Addtl Attending Provider Instructions: Irecommend you lift no more than 2 to 3 pounds. Closed compression fracture of L! vertebra: your pain has improved. will continue tramadol for pain relief. Recommend monitoring your bowel movements for constipation. Please use miralax daily or twice a day if no BM. Pending Studies at Discharge: No Stand-Alone Forms: My [facility] Skilled Items Patient informed of condition?: No DNR: Yes Discharge Level of Care: Skilled Communicable Disease: No Discharge Prognosis: Stable Lines: None Urinary Catheter: No Medications and DC Order Prescriptions: New acetaminophen 325 mg Tablet 650 mg PO QID Qty: 120 0RF polyethylene glycol 3350 [Miralax] 17 gram Powder In Packet 17 g PO DAILY Qty: 30 0RF tramadol 50 mg Tablet 50 mg PO BID PRN (Reason: moderate pain) Qty: 30 0RF docusate sodium 100 mg Capsule 100 mg PO BID PRN (Reason: constipation) Qty: 60 0RF calcitonin (salmon) 200 unit/actuation [facility],Non-Aerosol 1 spray NA DAILY Qty: 3.7 0RF hydrocodone-acetaminophen 5-325 mg tablet 1 tab PO Q6H PRN (Reason: pain) Qty: 12 0RF Continued (DME) blood-glucose meter [OneTouch Ultra2 Meter] [facility] See Rx Instructions .ROUTE .MEDSUPPLY Qty: 1 0RF Rx Instructions: Test blood sugars 4 times a day (DME) OneTouch Ultra Blue Test Strip Strip See Dose Instructions .ROUTE .MEDSUPPLY Qty: 400 3RF Rx Instructions: test 4 times daily (DME) lancets [OneTouch UltraSoft Lancets] [facility] See Dose Instructions .ROUTE .MEDSUPPLY Qty: 400 3RF Dose Instruction: As directed Rx Instructions: Testing 4 times daily (DME) Wheeled Walker [facility] See Rx Instructions .Route Qty: 1 0RF Rx Instructions: As directed nortriptyline [Pamelor] 25 mg capsule 25 mg PO HS Qty: 30 5RF topiramate [Topamax] 25 mg tablet 25 mg PO BID Qty: 60 5RF omeprazole 40 mg capsule,delayed release(DR/EC) 40 mg PO QAM Qty: 90 1RF (DME) pen needle, diabetic [BD Ultra-Fine Araceli Pen Needle] 32 gauge x 5/32" needle See Dose Instructions .ROUTE .MEDSUPPLY Qty: 200 3RF Rx Instructions: use 2 needles daily duloxetine 60 mg capsule,delayed release(DR/EC) 60 mg PO BID Qty: 60 5RF (DME) Scooter [facility] See Rx Instructions .Route Qty: 1 0RF Rx Instructions: Motorized Scooter liraglutide 0.6 mg/0.1 mL (18 mg/3 mL) pen injector 1.8 mg SUBCUT QAM Qty: 9 1RF cholecalciferol (vitamin D3) 50 mcg (2,000 unit) capsule 2,000 unit PO QAM Tresiba FlexTouch U-100 100 unit/mL (3 mL) insulin pen 46 unit SUBCUT HS 30 Days Qty: 15 5RF omega [id number]-jcr-fish oil [Fish Oil] 1,000 mg (120 mg-180 mg) Capsule 1,000 mg PO HS aspirin 81 mg Tablet,Delayed Release (Dr/Ec) 81 mg PO HS pregabalin [Lyrica] 150 mg Capsule 150 mg PO BID atenolol 25 mg tablet 25 mg PO QAM Multi-Day Plus Minerals 18 mg iron-400 mcg-25 mcg Tablet 1 tab PO QAM oxybutynin chloride 5 mg tablet 10 mg PO QPM oxybutynin chloride 5 mg Tablet 5 mg PO QAM Discontinued loratadine [Claritin] 10 mg tablet 10 mg PO DAILY Qty: 90 1RF Discharge Orders: Discharge Order (Routine); Ordered 07/07/22 Ordered By: Cheko Rodriguez Admission Data Admit Date/Time: 07/03/22 23:25 Attending Provider: Cheko Rodriguez Admit Provider: Frida Hernandez Primary Care Provider: Mer Jack. Other Providers: Richi Morales ; Seth iHnes Other Interventions: Discharge Summary Assessment (RN) Last Done: 07/07/22 15:11 Coding Level of Care Code 31442 OBS Care - Discharge Diagnoses Closed compression fracture of L1 vertebra S32.010A Ambulatory dysfunction R26.2 Diabetes mellitus with diabetic polyneuropathy E11.42 HTN (hypertension) I10 Hypertension type: essential hypertension RLS (restless legs syndrome) G25.81 GERD (gastroesophageal reflux disease) K21.9
== END 2022-07-07 16:59 ==
LOC: ED 16:02 → INTOOBSV 23:25 → SUATTDRO 23:25 → 3E 23:25

== ENCOUNTER 2022-08-03 14:24 | Inpatient (IN) ==
[2022-08-03 15:25] LABS: Basophils # (auto) 0.02 K/uL (0-0.2); Basophils % (auto) 0.2 %; Eosinophils # (auto) 0.05 K/uL (0-0.50); Eosinophils % (auto) 0.6 %; Hemoglobin 14.2 g/dl (12.0-16.0); Immature Granulocytes # (auto) 0.06 K/uL (0.00-0.02); Immature Granulocytes % (auto) 0.7 %; Lymphocytes # (auto) 2.49 K/uL (1.2-3.4); Lymphocytes % (auto) 28.6 %; Mean Corpuscular Hemoglobin 31.1 pg (25.0-34.0); Mean Corpuscular Hgb Conc 33.8 g/dL (32.0-36.0); Mean Corpuscular Volume 92.1 fL (80.0-100.0); Mean Platelet Volume 11.8 fL (9.4-12.3); Monocytes # (auto) 0.42 K/uL (0.24-0.82); Monocytes % (auto) 4.8 %; Neutrophils # (auto) 5.66 K/uL (1.4-6.5); Neutrophils % (auto) 65.1 %; Platelet Count 204 K/uL (130-400); RDW Coefficient of Variation 12.6 % (11.5-14.5); RDW Standard Deviation 42.5 fL (36.4-46.3); Red Blood Count 4.56 M/uL (3.93-5.22)
--- NOTE | 2022-08-03 15:29 | Emergency Department Note ---
History of Present Illness General Chief complaint: Altered Mental Status Stated complaint: altered mental status Time Seen by Provider: 08/03/22 15:15 Source: patient, RN notes reviewed and old records reviewed Mode of arrival: EMS Limitations: no limitations History of Present Illness This patient is a 67-year-old female who is brought in from home after being noted to be confused. Home nursing was out to see her who has dementia and noticed that she was also acting off. They checked her blood sugar and glucose was "low". EMS was summoned and gave her oral glucose and D10 and her last blood sugar was 310. Is also noted that her O2 sat was low at 88%. She denies any significant plaints she may have complained of a headache last night but denies any now she is tells me she fell recently but cannot tell me when she answers most questions appropriately but some very slowly and vaguely and some she just does not know the answer to either. She denies chest pain or shortness of breath denies fever chills no sick contacts. No nausea vomiting no numbness weakness she says she is been eating and drinking as normal. no change in vision. She has had some urinary symptoms and some vague back pain Home Medications Medication Instructions Recorded Confirmed Type omega 8-hxr-dmc-fish oil 1,000 mg 1,000 mg PO HS 06/20/18 08/03/22 History (120 mg-180 mg) capsule (Fish Oil) OneTouch Ultra2 Meter #1 ea 09/18/20 04/16/22 Rx (blood-glucose meter) blood sugar diagnostic (OneTouch #400 ea 09/19/20 04/16/22 Rx Ultra Blue Test Strip) lancets (OneTouch UltraSoft #400 ea 09/19/20 04/16/22 Rx Lancets) cholecalciferol (vitamin D3) 50 2,000 unit PO QAM 05/15/21 08/03/22 History mcg (2,000 unit) capsule Wheeled Walker #1 ea 07/09/21 04/16/22 Rx insulin degludec 100 unit/mL (3 46 unit (0.46 mL) subcut HS 30 12/29/21 08/03/22 Rx mL) subcutaneous pen (Tresiba days #15 mL FlexTouch U-100 insulin) nortriptyline 25 mg capsule 25 mg PO HS #30 caps 01/06/22 08/03/22 Rx (Pamelor) topiramate 25 mg tablet (Topamax) 25 mg PO BID #60 tabs 02/15/22 08/03/22 Rx BD Ultra-Fine Araceli Pen Needle 32 #200 ea 03/08/22 04/16/22 Rx gauge x 5/32" (pen needle, diabetic) omeprazole 40 mg capsule,delayed 40 mg PO QAM #90 caps 03/08/22 08/03/22 Rx release duloxetine 60 mg capsule,delayed 60 mg PO BID #60 caps 03/31/22 08/03/22 Rx release aspirin 81 mg tablet,delayed 81 mg PO HS 04/05/22 08/03/22 History release atenolol 25 mg tablet 25 mg PO QAM 04/05/22 08/03/22 History multivit with minerals-iron 18 1 tab PO QAM 04/05/22 08/03/22 History mg-folic ac 400 mcg-vit K 25 mcg tablet (Multi-Day Plus Minerals) pregabalin 150 mg capsule (Lyrica) 150 mg PO BID 04/05/22 08/03/22 History Scooter #1 ea 06/02/22 Rx liraglutide 0.6 mg/0.1 mL (18 mg/3 1.8 mg (0.3 mL) subcut QAM #9 mL 06/11/22 08/03/22 Rx mL) subcutaneous pen injector oxybutynin chloride 5 mg tablet 5 mg PO QAM 07/03/22 08/03/22 History oxybutynin chloride 5 mg tablet 10 mg PO QPM 07/03/22 08/03/22 History acetaminophen 325 mg tablet 650 mg PO QID #120 tabs 07/07/22 08/03/22 Rx calcitonin (salmon) 200 1 spray NA DAILY #3.7 mL 07/07/22 08/03/22 Rx unit/actuation nasal spray docusate sodium 100 mg capsule 100 mg PO BID PRN constipation #60 07/07/22 08/03/22 Rx caps hydrocodone 5 mg-acetaminophen 325 1 tab PO Q6H PRN pain #12 tabs 07/07/22 08/03/22 Rx mg tablet polyethylene glycol 3350 17 gram 17 g PO DAILY #30 ea 07/07/22 08/03/22 Rx oral powder packet (Miralax) tramadol 50 mg tablet 50 mg PO BID PRN moderate pain #30 07/07/22 08/03/22 Rx tabs Allergies Allergy/AdvReac Type Severity Reaction Status Date / Time tetanus toxoid, adsorbed Allergy Severe TROUBLE Verified 07/03/22 22:25 BREATHING Penicillins Allergy Mild ITCHINESS Verified 07/03/22 22:25 onion Allergy Unknown ? Verified 07/03/22 22:25 REACTION, ALLERGY SHOWN ON SKIN TEST orange Allergy Unknown PATCH Verified 07/03/22 22:25 TESTED HIVES REACTION tomato Allergy Unknown COUGHING Verified 07/03/22 22:25 morphine AdvReac Intermediate Gets wild Verified 07/03/22 22:25 and has the shakes meperidine AdvReac Mild NAUSEA AND Verified 07/03/22 22:25 VOMITING metformin AdvReac Mild diarrhea Verified 07/03/22 22:25 oxycodone AdvReac Mild Nausea/Vomi Verified 07/03/22 22:25 ting atorvastatin [From Lipitor] AdvReac Headache Verified 07/03/22 22:25 sulfamethoxazole AdvReac Unknown Verified 04/16/22 13:58 [From Bactrim] trimethoprim [From Bactrim] AdvReac Unknown Verified 04/16/22 13:58 Past Med/Surg History Medical History Acquired claw toe of left foot Acquired claw toe of right foot Acquired hallux valgus of right foot Anemia Chest pain Colitis Diabetes mellitus with diabetic polyneuropathy Diabetic peripheral neuropathy associated with type 2 diabetes mellitus Diverticulitis Diverticulitis GERD (gastroesophageal reflux disease) Hallux valgus (acquired), left foot History of anesthesia reaction PT STATES SHE IS SLOW TO WAKE, NO DOCUMENTED ADVERSE REACTION History of cholecystitis HTN (hypertension) Hypertriglyceridemia Left knee DJD Microalbuminuria Nail complaint Osteoarthritis Right knee DJD RLS (restless legs syndrome) Type 2 diabetes mellitus with complication Urinary incontinence Vitamin D deficiency Surgical History History of cholecystectomy 12/28/17 History of total knee replacement R 2015, L 2016 History of total left hip arthroplasty 2007 S/P inguinal hernia repair S/P partial thyroidectomy S/P tonsillectomy S/P total hysterectomy Family History Mother Depression Diabetes Gallbladder disease Hypertension Lung cancer Alzheimer disease Father Lung cancer Bone cancer Grandmother Myocardial infarction Family/Other Breast cancer cousin Ovarian cancer Denies family history of Prostate cancer Colorectal cancer Social History (Updated 08/03/22 @ 19:32 by Kenneth Metcalf) Smoking Status: Never smoker Cigarettes Per Day: TRIED OCC. 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; Second Hand Exposure: Yes; Hx Alcohol Use: No Hx Substance Use: No Preferred Language: Syriac Communication Ability: Effective Visual Impairment: No Limitations Hearing Ability: Normal Fund Controller Required: No Beliefs That Will Affect Care: None marital status: Current Living Situation: Spouse current occupational status: retired How many Children do You have: 2 Feels Safe at Home: Yes Diet Comment: regular caffeine: Yes during the past year weight has: remained stable Dental Care, Regularly: Yes Physical Activity Frequency: 1-2 Times per Week Seatbelt Use: always Sunscreen Use: No Assistive Devices: Walker Review of Systems A total of 10 systems reviewed and were otherwise negative Physical Exam Vital Signs Vital Signs - 24 hr 08/03/22 14:31 08/03/22 14:31 08/03/22 15:49 Temperature 36.8 C Temperature Source Oral Pulse Rate 75 Pulse Rate [Apical] 81 Respiratory Rate 20 18 Respiratory Effort / Characteristics Respiratory Depth Blood Pressure 195/72 H Blood Pressure [Right Arm] 168/62 H Blood Pressure Mean 113 Blood Pressure Mean [Right Arm] 97 Blood Pressure Position Lying Pulse Oximetry 93 98 Oxygen Delivery Method Nasal Cannula Room Air Nasal Cannula Oxygen Flow Rate 2 Sepsis Recent Fever Within 48 Hours No Sepsis New/Unexplained Change in Mental Status No Sepsis Action Taken by Nursing No Action Required 08/03/22 16:53 08/03/22 16:00 08/03/22 17:07 Temperature Temperature Source Pulse Rate Pulse Rate [Apical] 78 71 Respiratory Rate 18 20 Respiratory Effort / Characteristics Respiratory Depth Blood Pressure Blood Pressure [Right Arm] 131/59 L 146/99 H Blood Pressure Mean Blood Pressure Mean [Right Arm] 83 114 Blood Pressure Position Pulse Oximetry 98 96 Oxygen Delivery Method Nasal Cannula Nasal Cannula Nasal Cannula Oxygen Flow Rate 2 2 2 Sepsis Recent Fever Within 48 Hours Sepsis New/Unexplained Change in Mental Status Sepsis Action Taken by Nursing 08/03/22 18:04 08/03/22 18:30 Temperature Temperature Source Pulse Rate Pulse Rate [Apical] 75 73 Respiratory Rate 18 18 Respiratory Effort / Characteristics Non-Labored Non-Labored Respiratory Depth Normal Normal Blood Pressure Blood Pressure [Right Arm] 140/98 148/77 H Blood Pressure Mean Blood Pressure Mean [Right Arm] 112 100 Blood Pressure Position Pulse Oximetry 99 95 Oxygen Delivery Method Nasal Cannula Nasal Cannula Oxygen Flow Rate 2 2 Sepsis Recent Fever Within 48 Hours Sepsis New/Unexplained Change in Mental Status Sepsis Action Taken by Nursing General: Well developed well nourished older female who appears in no acute distress, breathing comfortably on room air. Normal speech. She is alert and orient times person but says it is 2011 and does not know where she is. HEENT: Normal cephalic atraumatic. Pupils are equal round and reactive to light. Sclera anicteric extraocular movements are intact. Oropharynx is pink with moist mucous membranes. No swelling of the mouth lips or tongue. Neck: Supple with a midline trachea. No meningeal signs or stiffness, no JVD or bruits. No Stridor. Chest: Clear to auscultation bilaterally. No wheezes or rhonchi. No increased work of breathing. Heart: Regular rate and rhythm without murmurs or gallops. Abdomen: Soft nontender, nondistended without rebound guarding or rigidity. Extremities: No cyanosis clubbing or edema. No calf tenderness or assymetry Spine/Back. Mildly tender to palpation in the low back bilaterally. No CVA tenderness Skin: Good turgor without rashes. Neurologic exam: Cranial nerves two through 12 are intact. Motor and sensation are intact and symmetrical throughout. Course Administered Medications Acetaminophen (Acetaminophen 325 Mg Tab) 650 mg PO QID TEZ Stop: 09/02/22 21:29 Last Admin: 08/03/22 22:38 Dose: 650 mg Documented By: NILO Aspirin (Aspirin 81 Mg Ectab) 81 mg PO HS TEZ Stop: 09/02/22 21:29 Last Admin: 08/03/22 22:38 Dose: 81 mg Documented By: NILO Duloxetine HCl (Duloxetine Hcl 60 Mg Cap) 60 mg PO BID TEZ Stop: 09/02/22 21:29 Last Admin: 08/03/22 22:39 Dose: 60 mg Documented By: NILO Potassium Chloride/Sodium Chloride (Normal Saline W/20 Meq Kcl) 20 meq in 1,000 mls @ 75 mls/hr IV .[id number] TEZ Stop: 08/05/22 00:39 Last Admin: 08/03/22 22:22 Dose: 75 mls/hr Documented By: NILO Insulin Aspart (Insulin Aspart Per Unit) 0 units SC ACHS TEZ Stop: 09/02/22 21:29 Last Admin: 08/03/22 22:38 Dose: Not Given Documented By: NILO Co-signed By: LIVIA Insulin Glargine (Lantus Per Unit Charge) 15 units SQ BID TEZ Stop: 09/02/22 21:29 Last Admin: 08/03/22 22:37 Dose: 15 units Documented By: NILO Co-signed By: LIVIA Discontinued Medications Ceftriaxone Sodium (Rocephin) 2,000 mg in 70 mls @ 140 mls/hr IV NOW [facility] [place] Stop: 08/03/22 18:35 Last Infusion: 08/03/22 19:09 Dose: 0 mls/hr Documented By: Admin: 08/03/22 18:29 Dose: 140 mls/hr Documented By: BILLIE Potassium Chloride (Potassium Chloride Crtab 20 Meq Tabcr) 20 meq PO NOW STA Stop: 08/03/22 19:54 Last Admin: 08/03/22 20:51 Dose: 20 meq Documented By: JAZLYN Medical Decision Making Differential Diagnosis Electrolyte or metabolic abnormality, sepsis, UTI, intracranial process, cardiac disease, arrhythmia, electrolyte or metabolic abnormal Medical Records Attestation: I reviewed the patient's medical records. Home Medications Current Medication List: was personally reviewed by me Laboratory Data Attestation: I reviewed the patient's lab results. Result diagrams: 08/03/22 14:30 08/03/22 14:30 Lab Results 08/03/22 08/03/22 08/03/22 Range/Units 14:30 14:30 14:30 WBC 8.70 (4.8-10.8) K/ul RBC 4.56 (3.93-5.22) M/uL Hgb 14.2 (12.0-16.0) g/dl Hct 42.0 (34.1-44.9) % MCV 92.1 (80.0-100.0) fL MCH 31.1 (25.0-34.0) pg MCHC 33.8 (32.0-36.0) g/dL RDW Std Deviation 42.5 (36.4-46.3) fL RDW Coeff of Charly 12.6 (11.5-14.5) % Plt Count 204 (130-400) K/uL MPV 11.8 (9.4-12.3) fL Immature Gran % (Auto) 0.7 % Neut % (Auto) 65.1 % Lymph % (Auto) 28.6 % Crowley % (Auto) 4.8 % Eos % (Auto) 0.6 % Baso % (Auto) 0.2 % Neut # (Auto) 5.66 (1.4-6.5) K/uL Lymph # (Auto) 2.49 (1.2-3.4) K/uL Crowley # (Auto) 0.42 (0.24-0.82) K/uL Eos # (Auto) 0.05 (0-0.50) K/uL Baso # (Auto) 0.02 (0-0.2) K/uL Immature Gran # (Auto) 0.06 H (0.00-0.02) K/uL PT 11.9 (9.0-12.0) Seconds INR 1.1 (0.9-1.1) APTT 27.8 (21.0-31.0) Seconds PTT Ratio 1.0 Sodium (136-145) mmol/L Potassium (3.5-5.1) mmol/L Chloride (98-107) mmol/L Carbon Dioxide (21-32) mmol/L Anion Gap (3-11) BUN (6-23) mg/dl Creatinine (0.6-1.2) mg/dl Est Cr Clr Drug Dosing Est GFR ( Amer) ml/min Est GFR (Non-Af Amer) ml/min BUN/Creatinine Ratio (10-20) Glucose (70-99(Fasting)) mg/dl POC Glucose 387 H* (70-99) mg/dl Lactate (0.4-2.0) mmol/L Calcium (8.5-10.1) mg/dl Magnesium (1.7-2.4) mg/dl Total Bilirubin (0.2-1.0) mg/dl AST (13-39) U/L ALT (7-52) U/L Alkaline Phosphatase (34-104) U/L Troponin I High Sens (0-14) pg/ml Total Protein (6.0-8.3) gm/dl Albumin (3.4-5.0) gm/dl Globulin (2.5-4.0) gm/dl Albumin/Globulin Ratio (0.9-2) Procalcitonin (0-0.5) ng/ml Urine Color Urine Appearance (Clear) Urine pH (4.5-7.5) Ur Specific [place] (1.000-1.030) Urine Protein (Negative) Urine Glucose (UA) (Negative) Urine Ketones (Negative) Urine Blood (Negative) Urine Nitrite (Negative) Urine Bilirubin (Negative) Urine Urobilinogen (Negative) Ur Leukocyte Esterase (Negative) Urine WBC (Auto) (0-5) /hpf Urine RBC (Auto) (0-4) /hpf U Hyaline Cast (Auto) (0-5) /lpf U Epithel Cells (Auto) (0-5) /lpf Urine Bacteria (Auto) (Negative) SARS-CoV-2 (PCR) (Negative) Influenza Type A (PCR) (Neg) Influenza Type B (PCR) (Neg) RSV (RT-PCR) (Neg) 08/03/22 08/03/22 08/03/22 Range/Units 14:30 14:30 14:30 WBC (4.8-10.8) K/ul RBC (3.93-5.22) M/uL Hgb (12.0-16.0) g/dl Hct (34.1-44.9) % MCV (80.0-100.0) fL MCH (25.0-34.0) pg MCHC (32.0-36.0) g/dL RDW Std Deviation (36.4-46.3) fL RDW Coeff of Charly (11.5-14.5) % Plt Count (130-400) K/uL MPV (9.4-12.3) fL Immature Gran % (Auto) % Neut % (Auto) % Lymph % (Auto) % Crowley % (Auto) % Eos % (Auto) % Baso % (Auto) % Neut # (Auto) (1.4-6.5) K/uL Lymph # (Auto) (1.2-3.4) K/uL [place] # (Auto) (0.24-0.82) K/uL Eos # (Auto) (0-0.50) K/uL Baso # (Auto) (0-0.2) K/uL Immature Gran # (Auto) (0.00-0.02) K/uL PT (9.0-12.0) Seconds INR (0.9-1.1) APTT (21.0-31.0) Seconds PTT Ratio Sodium 135 L (136-145) mmol/L Potassium 3.3 L (3.5-5.1) mmol/L Chloride 96 L (98-107) mmol/L Carbon Dioxide 32 (21-32) mmol/L Anion Gap 7 (3-11) BUN 5 L (6-23) mg/dl Creatinine 0.57 L (0.6-1.2) mg/dl Est Cr Clr Drug Dosing Not Reportable Est GFR ( Amer) 111.2 ml/min Est GFR (Non-Af Amer) 95.9 ml/min BUN/Creatinine Ratio 8.8 L (10-20) Glucose 420 H* (70-99(Fasting)) mg/dl POC Glucose (70-99) mg/dl Lactate (0.4-2.0) mmol/L Calcium 9.4 (8.5-10.1) mg/dl Magnesium 1.7 (1.7-2.4) mg/dl Total Bilirubin 0.7 (0.2-1.0) mg/dl AST 36 (13-39) U/L ALT 19 (7-52) U/L Alkaline Phosphatase 89 (34-104) U/L Troponin I High Sens 6.8 (0-14) pg/ml Total Protein 6.8 (6.0-8.3) gm/dl Albumin 3.5 (3.4-5.0) gm/dl Globulin 3.3 (2.5-4.0) gm/dl Albumin/Globulin Ratio 1.1 (0.9-2) Procalcitonin 0.06 (0-0.5) ng/ml Urine Color Urine Appearance (Clear) Urine pH (4.5-7.5) Ur Specific [place] (1.000-1.030) Urine Protein (Negative) Urine Glucose (UA) (Negative) Urine Ketones (Negative) Urine Blood (Negative) Urine Nitrite (Negative) Urine Bilirubin (Negative) Urine Urobilinogen (Negative) Ur Leukocyte Esterase (Negative) Urine WBC (Auto) (0-5) /hpf Urine RBC (Auto) (0-4) /hpf U Hyaline Cast (Auto) (0-5) /lpf U Epithel Cells (Auto) (0-5) /lpf Urine Bacteria (Auto) (Negative) SARS-CoV-2 (PCR) (Negative) Influenza Type A (PCR) (Neg) Influenza Type B (PCR) (Neg) RSV (RT-PCR) (Neg) 08/03/22 08/03/22 08/03/22 Range/Units 15:58 16:05 16:51 WBC (4.8-10.8) K/ul RBC (3.93-5.22) M/uL Hgb (12.0-16.0) g/dl Hct (34.1-44.9) % MCV (80.0-100.0) fL MCH (25.0-34.0) pg MCHC (32.0-36.0) g/dL RDW Std Deviation (36.4-46.3) fL RDW Coeff of Charly (11.5-14.5) % Plt Count (130-400) K/uL MPV (9.4-12.3) fL Immature Gran % (Auto) % Neut % (Auto) % Lymph % (Auto) % [place] % (Auto) % Eos % (Auto) % Baso % (Auto) % Neut # (Auto) (1.4-6.5) K/uL Lymph # (Auto) (1.2-3.4) K/uL [place] # (Auto) (0.24-0.82) K/uL Eos # (Auto) (0-0.50) K/uL Baso # (Auto) (0-0.2) K/uL Immature Gran # (Auto) (0.00-0.02) K/uL PT (9.0-12.0) Seconds INR (0.9-1.1) APTT (21.0-31.0) Seconds PTT Ratio Sodium (136-145) mmol/L Potassium (3.5-5.1) mmol/L Chloride (98-107) mmol/L Carbon Dioxide (21-32) mmol/L Anion Gap (3-11) BUN (6-23) mg/dl Creatinine (0.6-1.2) mg/dl Est Cr Clr Drug Dosing Est GFR ( Amer) ml/min Est GFR (Non-Af Amer) ml/min BUN/Creatinine Ratio (10-20) Glucose (70-99(Fasting)) mg/dl POC Glucose 237 H (70-99) mg/dl Lactate 1.9 (0.4-2.0) mmol/L Calcium (8.5-10.1) mg/dl Magnesium (1.7-2.4) mg/dl Total Bilirubin (0.2-1.0) mg/dl AST (13-39) U/L ALT (7-52) U/L Alkaline Phosphatase (34-104) U/L Troponin I High Sens (0-14) pg/ml Total Protein (6.0-8.3) gm/dl Albumin (3.4-5.0) gm/dl Globulin (2.5-4.0) gm/dl Albumin/Globulin Ratio (0.9-2) Procalcitonin (0-0.5) ng/ml Urine Color Urine Appearance (Clear) Urine pH (4.5-7.5) Ur Specific [place] (1.000-1.030) Urine Protein (Negative) Urine Glucose (UA) (Negative) Urine Ketones (Negative) Urine Blood (Negative) Urine Nitrite (Negative) Urine Bilirubin (Negative) Urine Urobilinogen (Negative) Ur Leukocyte Esterase (Negative) Urine WBC (Auto) (0-5) /hpf Urine RBC (Auto) (0-4) /hpf U Hyaline Cast (Auto) (0-5) /lpf U Epithel Cells (Auto) (0-5) /lpf Urine Bacteria (Auto) (Negative) SARS-CoV-2 (PCR) NEGATIVE (Negative) Influenza Type A (PCR) Negative (Neg) Influenza Type B (PCR) Negative (Neg) RSV (RT-PCR) Negative (Neg) 08/03/22 Range/Units 17:00 WBC (4.8-10.8) K/ul RBC (3.93-5.22) M/uL Hgb (12.0-16.0) g/dl Hct (34.1-44.9) % MCV (80.0-100.0) fL MCH (25.0-34.0) pg MCHC (32.0-36.0) g/dL RDW Std Deviation (36.4-46.3) fL RDW Coeff of Charly (11.5-14.5) % Plt Count (130-400) K/uL MPV (9.4-12.3) fL Immature Gran % (Auto) % Neut % (Auto) % Lymph % (Auto) % [place] % (Auto) % Eos % (Auto) % Baso % (Auto) % Neut # (Auto) (1.4-6.5) K/uL Lymph # (Auto) (1.2-3.4) K/uL [place] # (Auto) (0.24-0.82) K/uL Eos # (Auto) (0-0.50) K/uL Baso # (Auto) (0-0.2) K/uL Immature Gran # (Auto) (0.00-0.02) K/uL PT (9.0-12.0) Seconds INR (0.9-1.1) APTT (21.0-31.0) Seconds PTT Ratio Sodium (136-145) mmol/L Potassium (3.5-5.1) mmol/L Chloride (98-107) mmol/L Carbon Dioxide (21-32) mmol/L Anion Gap (3-11) BUN (6-23) mg/dl Creatinine (0.6-1.2) mg/dl Est Cr Clr Drug Dosing Est GFR ( Amer) ml/min Est GFR (Non-Af Amer) ml/min BUN/Creatinine Ratio (10-20) Glucose (70-99(Fasting)) mg/dl POC Glucose (70-99) mg/dl Lactate (0.4-2.0) mmol/L Calcium (8.5-10.1) mg/dl Magnesium (1.7-2.4) mg/dl Total Bilirubin (0.2-1.0) mg/dl AST (13-39) U/L ALT (7-52) U/L Alkaline Phosphatase (34-104) U/L Troponin I High Sens (0-14) pg/ml Total Protein (6.0-8.3) gm/dl Albumin (3.4-5.0) gm/dl Globulin (2.5-4.0) gm/dl Albumin/Globulin Ratio (0.9-2) Procalcitonin (0-0.5) ng/ml Urine Color Yellow Urine Appearance Cloudy A (Clear) Urine pH 7.0 (4.5-7.5) Ur Specific [place] 1.016 (1.000-1.030) Urine Protein Negative (Negative) Urine Glucose (UA) 2+ H (Negative) Urine Ketones Trace H (Negative) Urine Blood Negative (Negative) Urine Nitrite Positive A (Negative) Urine Bilirubin Negative (Negative) Urine Urobilinogen Negative (Negative) Ur Leukocyte Esterase Trace H (Negative) Urine WBC (Auto) 5-10 H (0-5) /hpf Urine RBC (Auto) 0-4 (0-4) /hpf U Hyaline Cast (Auto) 1-5 (0-5) /lpf U Epithel Cells (Auto) 20-30 H (0-5) /lpf Urine Bacteria (Auto) 4+ H (Negative) SARS-CoV-2 (PCR) (Negative) Influenza Type A (PCR) (Neg) Influenza Type B (PCR) (Neg) RSV (RT-PCR) (Neg) Imaging Data Attestation: I personally reviewed and interpreted this imaging study as follows: My Impression: CT of her head -no hemorrhage or mass-effect Chest x-ray-no acute infiltrate, failure, pneumothorax seen Radiologist's Impression: Chest X-Ray 08/03/22 15:23 XR chest 1V portable CLINICAL HISTORY: Sepsis. COMPARISON STUDY: Chest CT December 19, 2018 and chest radiograph April 05, 2022. FINDINGS: Incidental note is made of severe osteoarthritis of the glenohumeral joints. Low lung volumes are again noted. This is unchanged. No pneumothorax or pleural effusion is present. Cardiomediastinal silhouette is stable. No consolidation is present. Interstitial thickening is likely chronic. IMPRESSION: No acute cardiopulmonary findings. Interstitial thickening, likely chronic. ACT 112: Negative or not required by law. Electronically signed by: Sylvain Lane M.D. 08/03/2022 4:[address] 08/03/22 15:23 CT head/brain wo con CLINICAL HISTORY: confusion Technique: Contiguous axial CT images of the head were acquired from the base of the skull to the vertex without intravenous contrast administration. Images were viewed in brain, subdural and bone windows. Automated dose lowering techniques and/or adjustment according to patient size were utilized for this exam. Comparison: Comparison is made to CT head 07/03/2022 Findings: Areas of decreased attenuation are present in the periventricular and subcortical white matter bilaterally consistent with small vessel ischemic dise ase. Generalized cerebral atrophy with commensurate enlargement of the ventricles, sulci, and cisterns is also present. There is no acute intracranial hemorrhage or evidence of acute territorial infarction. No shift of the midline structures, mass effect, or extra-axial abnormalities are shown. Ath erosclerotic calcifications are present in the intracranial segments of the internal carotid arteries. Imaged portions of the paranasal sinuses and mastoid air cells are clear. The orbits appear normal. There are no acute fractures of the calvaria or scalp swelling. Impression: No acute intracranial hemorrhage, no evidence of acute territorial infarction or other acute intracranial disease process. ACT 112: Negative or not required by law. Electronically signed by: Shaw Solorzano M.D. 08/03/2022 3:59 PM ECG Data Attestation: I personally reviewed and interpreted this ECG as follows: Indication: + weakness Rate (beats per minute): 82 Rhythm: + normal sinus ECG Intervals/blocks: + Normal QRS, + Normal QT and + Normal [place] ECG [place]: + Normal ECG ST segments: + Normal ST segments ECG Findings: + LVH; no PACs or no PVCs Comparison ECG Date: from (04/05/21) Change: the following changes noted (PACs are now absent) MDM Narrative This patient is a 67-year-old female who comes in after noting she was confused she was hypoglycemic but this was corrected and she still has some mild to moderate confusion. She has a nonfocal neurologic exam otherwise. She had a full sepsis/neurologic type work-up. IV access was established. urine was also obtained. blood work and blood cultures were obtained x-ray EKG and head CT of her head. She was COVID tested. She was reassessed frequently. She has no fever or white count to suggest infection or inflammatory markers are unremarkable. CAT scan was unremarkable EKG was unremarkable. COVID testing was negative. Urinalysis does suggest a UTI. she was given IV Rocephin. I did discuss with the family members and they said that she is definitely confused compared to baseline. I think this is likely from a UTI but I do think she is to be admitted for IV antibiotics and further treatment and evaluation. [facility]. Continuous cardiac monitoring: Orders placed in EMR for continuous cardiac monitoring, upon my evaluation patient was noted to be in normal sinus rhythm rate of 80 Impression & Plan Acute encephalopathy, Hypoglycemia, Type 2 diabetes mellitus with complication, Lab test negative for COVID-19 virus, Acute UTI (urinary tract infection), Acute alteration in mental status Discharge Plan Visit Data Chief Complaint: Altered Mental Status Stated Complaint: altered mental status ED Provider: Gomez Romano Discharge Problem: Acute encephalopathy, Hypoglycemia, Type 2 diabetes mellitus with complication, Lab test negative for COVID-19 virus, Acute UTI (urinary tract infection), Acute alteration in mental status Patient Disposition: Admitted As Inpatient Discharge Instructions Interventions: ED Discharge Assessment Last Done: 08/03/22 21:31
[2022-08-03 15:46] LABS: INR 1.1 (0.9-1.1); Partial Thromboplastin Time 27.8 Seconds (21.0-31.0); Prothrombin Time 11.9 Seconds (9.0-12.0)
--- NOTE | 2022-08-03 16:01 | CT Scan Report ---
CT head/brain wo con CLINICAL HISTORY: confusion Technique: Contiguous axial CT images of the head were acquired from the base of the skull to the dante ryan without intravenous contrast administration. Images were viewed in brain, subdural and bone [facility]. Automated dose lowering techniques and/or adjustment according to patient size were utilized for this exam. Comparison: Comparison is made to CT head 07/03/2022 Findings: Areas of decreased attenuation are present in the periventricular and subcortical white matter bilate rally consistent with small vessel ischemic disease. Generalized cerebral atrophy with commensurate e nlargement of the ventricles, sulci, and cisterns is also present. There is no acute intracranial hem orrhage or evidence of acute territorial infarction. No shift of the midline structures, mass effect, or extra-axial abnormalities are shown. Atherosclerotic calcifications are present in the intracran ial segments of the internal carotid arteries. Imaged portions of the paranasal sinuses and mastoid air cells are clear. The orbits appear normal. There are no acute fractures of the calvaria or scalp swelling. Impression: No acute intracranial hemorrhage, no evidence of acute territorial infarction or other acute intracra nial disease process. ACT 112: Negative or not required by law. Electronically signed by: Shaw Solorzano M.D. 08/03/2022 3:59 PM
[2022-08-03 16:27] LABS: Magnesium 1.7 mg/dl (1.7-2.4)
--- NOTE | 2022-08-03 16:30 | Electrocardiogram Report ---
Test Reason : Blood Pressure : / mmHG Vent. Rate : 082 BPM Atrial Rate : 082 BPM P-R Int : 180 ms QRS Dur : 110 ms QT Int : 396 ms P-R-T Axes : 006 -20 050 degrees QTc Int : 462 ms Normal sinus rhythm Left ventricular hypertrophy with repolarization abnormality Abnormal ECG When compared with ECG of 05-APR-2022 21:00, Premature atrial complexes are no longer Present Confirmed by Kevin Stein ([id number]) on 08/03/2022 4:30:00 PM Referred By: Confirmed By:Kevin Stein
[2022-08-03 16:32] LABS: Troponin I High Sensitivity 6.8 pg/ml (0-14)
--- NOTE | 2022-08-03 16:41 | XRay Report ---
XR chest 1V portable CLINICAL HISTORY: Sepsis. COMPARISON STUDY: Chest CT December 19, 2018 and chest radiograph April 05, 2022. FINDINGS: Incidental note is made of severe osteoarthritis of the glenohumeral joints. Low lung volum es are again noted. This is unchanged. No pneumothorax or pleural effusion is present. Cardiomediasti nal silhouette is stable. No consolidation is present. Interstitial thickening is likely chronic. IMPRESSION: No acute cardiopulmonary findings. Interstitial thickening, likely chronic. ACT 112: Negative or not required by law. Electronically signed by: Sylvain Lane M.D. 08/03/2022 4:40 PM
[2022-08-03 17:07] LABS: Influenza A virus by PCR Negative (Neg); Influenza B virus by PCR Negative (Neg); RSV by PCR Negative (Neg); SARS CoV2 RNA(COVID-19) Ceph NEGATIVE (Negative)
[2022-08-03 17:23] LABS: Alanine Aminotransferase 19 U/L (7-52); Albumin Globulin Ratio 1.1 (0.9-2); Albumin Level 3.5 gm/dl (3.4-5.0); Alkaline Phosphatase 89 U/L (34-104); Anion Gap 7 (3-11); Aspartate Aminotransferase 36 U/L (13-39); BUN Creatinine Ratio 8.8 (10-20); Bilirubin,Total 0.7 mg/dl (0.2-1.0); Blood Urea Nitrogen 5 mg/dl (6-23); Calcium 9.4 mg/dl (8.5-10.1); Carbon Dioxide 32 mmol/L (21-32); Chloride 96 mmol/L (98-107); Est GFR (African American) 111.2 ml/min; Est GFR (Non-African American) 95.9 ml/min; Globulin 3.3 gm/dl (2.5-4.0); Glucose 420 mg/dl (70-99(Fasting)); Potassium 3.3 mmol/L (3.5-5.1); Sodium 135 mmol/L (136-145); Total Protein 6.8 gm/dl (6.0-8.3)
[2022-08-03 17:41] LABS: Appearance Urine Cloudy (Clear); Bacteria Urine Automated 4+ (Negative); Bilirubin Urine Negative (Negative); Blood Urine Negative (Negative); Color Urine Yellow; Epithelial Cell Urine Auto 20-30 /lpf (0-5); Glucose Urine UA 2+ (Negative); Ketones Urine Trace (Negative); Leukocyte Esterase Urine Trace (Negative); Nitrite Urine Positive (Negative); Protein Urine Negative (Negative); RBC Urine Automated 0-4 /hpf (0-4); Specific Gravity Urine 1.016 (1.000-1.030); Urobilinogen Urine Negative (Negative)
[2022-08-03] MEDS ORDERED: cefTRIAXone SODIUM 2,000 MG/70 ML BAG IV STA (18:06)
--- NOTE | 2022-08-03 18:34 | History & Physical Report ---
Date of Service August 03, 2022 Assessment & Plan (1) Acute encephalopathy: Plan: Differential - metabolic (UTI, ?hypoxia) vs toxic (polypharmacy - pain meds, TCA usage, etc) vs combination. Hold pain meds. Hold nortriptyline, topamax, oxybutinin. Trend BSGs. Treat suspected UTi. Check ammonia level and ABG. In light of UTI as well as kidney stones seen on CT in July will recheck CT to ensure the stones are not obstructing. (2) Hypoglycemia: Plan: By report her BSG was "low" upon EMS arrival to her home. However, since that time, her BSGs have been quite high. Even if she did indeed have hypoglycemia it is not the primary reason for her altered MS as she remains altered at this time. (3) UTI (urinary tract infection): Plan: Suspected, based on u/a results. Follow blood & urine cultures. Cont rocephin. CT abd/pelvis - r/o obstructing stones. (4) Kidney stones: Plan: seen on CT abd/pelvis in 07/20[address]. [address] ordered as above. (5) Diabetes mellitus with diabetic polyneuropathy: Plan: No HbA1c since November 2021. Check in am. Continue basal insulin but convert to lantus and only give 15 units BID. Add novolog - correction factor 30; carb ratio 1:10. (6) Closed compression fracture of L1 vertebra: Plan: Admitted for such in 07/2022. Hold pain meds as noted above in #1. CT abd/pelvis to look for obstructing stones will also re-eval the L1 fracture to ensure no interval worsening. (7) HTN (hypertension): Plan: Hold atenolol for now. Uncertain why she is not on ELINOR or ARB therapy in light of diabetes. (8) GERD (gastroesophageal reflux disease): Plan: Continue PPI. (9) Morbid obesity with BMI of 45.0-49.9, adult: Plan: BMI 45 (10) DVT prophylaxis: Plan: Add heparin or lovenox in am. Plan Will update family this evening. History of Present Illness Chief Complaint: altered mental status, ?hypoglycemia Primary Care Provider: Mer Jack DO 67yo female with T2DM, diabetic neuropathy, HTN, and recent hospital admission in 07/2022 for a fall with resulting L1 compression fracture. She presents today from home via EMS due to altered mental status. During my visit she was significantly confused and only able to tell me that she was "here for a UTI." She thought it was 2019 and could not tell me the month or day. By report a home health nurse was came to her home to check on her who has home health services. The home health nurse noted that Mrs Gresham was confused. Thus EMS was summoned. Upon EMS arrival apparently a fingerstick blood sugar registered as "low." She was given 200cc of D10W and glucose tablets by mouth. A repeat BSG was then about 400. During my assessment she was requiring 2 liters of NC O2. Attempts to remove it would lead to O2 saturation of about 89% at lowest. She was sleepy but did follow commands. She could offer little other pertinent information regarding her illness. Allergies Allergy/AdvReac Type Severity Reaction Status Date / Time tetanus toxoid, adsorbed Allergy Severe TROUBLE Verified 07/03/22 22:25 BREATHING Penicillins Allergy Mild ITCHINESS Verified 07/03/22 22:25 onion Allergy Unknown ? Verified 07/03/22 22:25 REACTION, ALLERGY SHOWN ON SKIN TEST orange Allergy Unknown PATCH Verified 07/03/22 22:25 TESTED HIVES REACTION tomato Allergy Unknown COUGHING Verified 07/03/22 22:25 morphine AdvReac Intermediate Gets wild Verified 07/03/22 22:25 and has the shakes meperidine AdvReac Mild NAUSEA AND Verified 07/03/22 22:25 VOMITING metformin AdvReac Mild diarrhea Verified 07/03/22 22:25 oxycodone AdvReac Mild Nausea/Vomi Verified 07/03/22 22:25 ting atorvastatin [From Lipitor] AdvReac Headache Verified 07/03/22 22:25 sulfamethoxazole AdvReac Unknown Verified 04/16/22 13:58 [From Bactrim] trimethoprim [From Bactrim] AdvReac Unknown Verified 04/16/22 13:58 Home Medications Medication Instructions Recorded Confirmed Type omega 1-ugb-mea-fish oil 1,000 mg 1,000 mg PO HS 06/20/18 08/03/22 History (120 mg-180 mg) capsule (Fish Oil) OneTouch Ultra2 Meter #1 ea 09/18/20 04/16/22 Rx (blood-glucose meter) blood sugar diagnostic (OneTouch #400 ea 09/19/20 04/16/22 Rx Ultra Blue Test Strip) lancets (OneTouch UltraSoft #400 ea 09/19/20 04/16/22 Rx Lancets) cholecalciferol (vitamin D3) 50 2,000 unit PO QAM 05/15/21 08/03/22 History mcg (2,000 unit) capsule Wheeled Walker #1 ea 07/09/21 04/16/22 Rx insulin degludec 100 unit/mL (3 46 unit (0.46 mL) subcut HS 30 12/29/21 08/03/22 Rx mL) subcutaneous pen (Tresiba days #15 mL FlexTouch U-100 insulin) nortriptyline 25 mg capsule 25 mg PO HS #30 caps 01/06/22 08/03/22 Rx (Pamelor) topiramate 25 mg tablet (Topamax) 25 mg PO BID #60 tabs 02/15/22 08/03/22 Rx BD Ultra-Fine Araceli Pen Needle 32 #200 ea 03/08/22 04/16/22 Rx gauge x 5/32" (pen needle, diabetic) omeprazole 40 mg capsule,delayed 40 mg PO QAM #90 caps 03/08/22 08/03/22 Rx release duloxetine 60 mg capsule,delayed 60 mg PO BID #60 caps 03/31/22 08/03/22 Rx release aspirin 81 mg tablet,delayed 81 mg PO HS 04/05/22 08/03/22 History release atenolol 25 mg tablet 25 mg PO QAM 04/05/22 08/03/22 History multivit with minerals-iron 18 1 tab PO QAM 04/05/22 08/03/22 History mg-folic ac 400 mcg-vit K 25 mcg tablet (Multi-Day Plus Minerals) pregabalin 150 mg capsule (Lyrica) 150 mg PO BID 04/05/22 08/03/22 History Scooter #1 ea 06/02/22 Rx liraglutide 0.6 mg/0.1 mL (18 mg/3 1.8 mg (0.3 mL) subcut QAM #9 mL 06/11/22 08/03/22 Rx mL) subcutaneous pen injector oxybutynin chloride 5 mg tablet 5 mg PO QAM 07/03/22 08/03/22 History oxybutynin chloride 5 mg tablet 10 mg PO QPM 07/03/22 08/03/22 History acetaminophen 325 mg tablet 650 mg PO QID #120 tabs 07/07/22 08/03/22 Rx calcitonin (salmon) 200 1 spray NA DAILY #3.7 mL 07/07/22 08/03/22 Rx unit/actuation nasal spray docusate sodium 100 mg capsule 100 mg PO BID PRN constipation #60 07/07/22 08/03/22 Rx caps hydrocodone 5 mg-acetaminophen 325 1 tab PO Q6H PRN pain #12 tabs 07/07/22 08/03/22 Rx mg tablet polyethylene glycol 3350 17 gram 17 g PO DAILY #30 ea 07/07/22 08/03/22 Rx oral powder packet (Miralax) tramadol 50 mg tablet 50 mg PO BID PRN moderate pain #30 07/07/22 08/03/22 Rx tabs Past Med/Surg History Medical History Acquired claw toe of left foot Acquired claw toe of right foot Acquired hallux valgus of right foot Anemia Chest pain Colitis Diabetes mellitus with diabetic polyneuropathy Diabetic peripheral neuropathy associated with type 2 diabetes mellitus Diverticulitis Diverticulitis GERD (gastroesophageal reflux disease) Hallux valgus (acquired), left foot History of anesthesia reaction PT STATES SHE IS SLOW TO WAKE, NO DOCUMENTED ADVERSE REACTION History of cholecystitis HTN (hypertension) Hypertriglyceridemia Left knee DJD Microalbuminuria Nail complaint Osteoarthritis Right knee DJD RLS (restless legs syndrome) Type 2 diabetes mellitus with complication Urinary incontinence Vitamin D deficiency Surgical History History of cholecystectomy 12/28/17 History of total knee replacement R 2015, L 2016 History of total left hip arthroplasty 2007 S/P inguinal hernia repair S/P partial thyroidectomy S/P tonsillectomy S/P total hysterectomy Family History Mother Depression Diabetes Gallbladder disease Hypertension Lung cancer Alzheimer disease Father Lung cancer Bone cancer Grandmother Myocardial infarction Family/Other Breast cancer cousin Ovarian cancer Denies family history of Prostate cancer Colorectal cancer Social History (Updated 08/03/22 @ 19:32 by Kenneth Metcalf) Smoking Status: Never smoker Cigarettes Per Day: TRIED OCC. 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; Second Hand Exposure: Yes; Hx Alcohol Use: No Hx Substance Use: No Preferred Language: Tamaz[place] Communication Ability: Effective Visual Impairment: No Limitations Hearing Ability: Normal Livestock Dealer Required: No Beliefs That Will Affect Care: None marital status: Current Living Situation: Spouse current occupational status: retired How many Children do You have: 2 Feels Safe at Home: Yes Diet Comment: regular caffeine: Yes during the past year weight has: remained stable Dental Care, Regularly: Yes Physical Activity Frequency: 1-2 Times per Week Seatbelt Use: always Sunscreen Use: No Assistive Devices: Walker Review of Systems Review of Systems: gen - denies fevers/chills; can't tell me when she last ate eyes - denies visual changes HENT - denies ear pain, sore throat, nasal congestion CV - denies chest pain pulm - denies cough or dyspnea at rest GI - denies abd pain, nausea or emesis - ?foul smelling urine? musculo - c/o low back pain; denies joint pain; denies myalgia endo - can't tell me what her BSGs have been skin - denies rash psych - denies depression neuro - denies headache Physical Exam Physical Exam: gen - obese, sleepy but follows commands; when asked questions she takes a long time to answer them and the answers are usually wrong; nontoxic eyes - PERRL; no nystagmus HENT - nose clear; mouth with MMM neck - supple, no JVD, no bruits CV - 2/6 BRIDGER RUSB and LSB; RRR, s1 s2 lungs - minimal dry rales bases, CTA b/l otherwise abd - soft NT ND BS+; no flank tenderness ext - right leg is modestly larger than left leg; pulses 2+ b/l skin - no rash; no signs of trauma or injury neuro - strength 5/5 x 4 exts; speech is clear, no dysarthria; DTRs 2+ b/l; no tremor musculo - joint replacement scars over b/l knees; no signs of trauma to any limb psych - oriented to person only lymph - no cervical lymph nodes b/l Results & Data Results & Data ([facility]) Vital Signs (Past 12 Hours) Vital Signs Temp Pulse Pulse Resp BP BP Pulse Ox 08/03/22 18:30 73 18 148/77 H 95 08/03/22 18:04 75 18 140/98 99 08/03/22 17:07 71 20 146/99 H 96 08/03/22 16:00 08/03/22 16:53 78 18 131/59 L 98 08/03/22 15:49 81 18 168/62 H 98 08/03/22 14:31 08/03/22 14:31 36.8 C 75 20 195/72 H 93 O2 Del Method O2 Flow Rate 08/03/22 18:30 Nasal Cannula 2 08/03/22 18:04 Nasal Cannula 2 08/03/22 17:07 Nasal Cannula 2 08/03/22 16:00 Nasal Cannula 2 08/03/22 16:53 Nasal Cannula 2 08/03/22 15:49 Nasal Cannula 2 08/03/22 14:31 Room Air 08/03/22 14:31 Nasal Cannula Laboratory Results Laboratory Results - last 24 hr 08/03/22 08/03/22 08/03/22 14:30 14:30 14:30 WBC 8.70 RBC 4.56 Hgb 14.2 Hct 42.0 MCV 92.1 MCH 31.1 MCHC 33.8 RDW Std Deviation 42.5 RDW Coeff of Charly 12.6 Plt Count 204 MPV 11.8 Immature Gran % (Auto) 0.7 Neut % (Auto) 65.1 Lymph % (Auto) 28.6 [place] % (Auto) 4.8 Eos % (Auto) 0.6 Baso % (Auto) 0.2 Neut # (Auto) 5.66 Lymph # (Auto) 2.49 [place] # (Auto) 0.42 Eos # (Auto) 0.05 Baso # (Auto) 0.02 Immature Gran # (Auto) 0.06 H PT 11.9 INR 1.1 APTT 27.8 PTT Ratio 1.0 Sodium Potassium Chloride Carbon Dioxide Anion Gap BUN Creatinine Est Cr Clr Drug Dosing Est GFR ( Amer) Est GFR (Non-Af Amer) BUN/Creatinine Ratio Glucose POC Glucose 387 H* Lactate Calcium Magnesium Total Bilirubin AST ALT Alkaline Phosphatase Troponin I High Sens Total Protein Albumin Globulin Albumin/Globulin Ratio Procalcitonin Urine Color Urine Appearance Urine pH Ur Specific Barton Urine Protein Urine Glucose (UA) Urine Ketones Urine Blood Urine Nitrite Urine Bilirubin Urine Urobilinogen Ur Leukocyte Esterase Urine WBC (Auto) Urine RBC (Auto) U Hyaline Cast (Auto) U Epithel Cells (Auto) Urine Bacteria (Auto) SARS-CoV-2 (PCR) Influenza Type A (PCR) Influenza Type B (PCR) RSV (RT-PCR) 08/03/22 08/03/22 08/03/22 14:30 14:30 14:30 WBC RBC Hgb Hct MCV MCH MCHC RDW Std Deviation RDW Coeff of Charly Plt Count MPV Immature Gran % (Auto) Neut % (Auto) Lymph % (Auto) [place] % (Auto) Eos % (Auto) Baso % (Auto) Neut # (Auto) Lymph # (Auto) [place] # (Auto) Eos # (Auto) Baso # (Auto) Immature Gran # (Auto) PT INR APTT PTT Ratio Sodium 135 L Potassium 3.3 L Chloride 96 L Carbon Dioxide 32 Anion Gap 7 BUN 5 L Creatinine 0.57 L Est Cr Clr Drug Dosing Not Reportable Est GFR ( Amer) 111.2 Est GFR (Non-Af Amer) 95.9 BUN/Creatinine Ratio 8.8 L Glucose 420 H* POC Glucose Lactate Calcium 9.4 Magnesium 1.7 Total Bilirubin 0.7 AST 36 ALT 19 Alkaline Phosphatase 89 Troponin I High Sens 6.8 Total Protein 6.8 Albumin 3.5 Globulin 3.3 Albumin/Globulin Ratio 1.1 Procalcitonin 0.06 Urine Color Urine Appearance Urine pH Ur Specific Barton Urine Protein Urine Glucose (UA) Urine Ketones Urine Blood Urine Nitrite Urine Bilirubin Urine Urobilinogen Ur Leukocyte Esterase Urine WBC (Auto) Urine RBC (Auto) U Hyaline Cast (Auto) U Epithel Cells (Auto) Urine Bacteria (Auto) SARS-CoV-2 (PCR) Influenza Type A (PCR) Influenza Type B (PCR) RSV (RT-PCR) 08/03/22 08/03/22 08/03/22 15:58 16:05 16:51 WBC RBC Hgb Hct MCV MCH MCHC RDW Std Deviation RDW Coeff of Charly Plt Count MPV Immature Gran % (Auto) Neut % (Auto) Lymph % (Auto) [place] % (Auto) Eos % (Auto) Baso % (Auto) Neut # (Auto) Lymph # (Auto) [place] # (Auto) Eos # (Auto) Baso # (Auto) Immature Gran # (Auto) PT INR APTT PTT Ratio Sodium Potassium Chloride Carbon Dioxide Anion Gap BUN Creatinine Est Cr Clr Drug Dosing Est GFR ( Amer) Est GFR (Non-Af Amer) BUN/Creatinine Ratio Glucose POC Glucose 237 H Lactate 1.9 Calcium Magnesium Total Bilirubin AST ALT Alkaline Phosphatase Troponin I High Sens Total Protein Albumin Globulin Albumin/Globulin Ratio Procalcitonin Urine Color Urine Appearance Urine pH Ur Specific Barton Urine Protein Urine Glucose (UA) Urine Ketones Urine Blood Urine Nitrite Urine Bilirubin Urine Urobilinogen Ur Leukocyte Esterase Urine WBC (Auto) Urine RBC (Auto) U Hyaline Cast (Auto) U Epithel Cells (Auto) Urine Bacteria (Auto) SARS-CoV-2 (PCR) NEGATIVE Influenza Type A (PCR) Negative Influenza Type B (PCR) Negative RSV (RT-PCR) Negative 08/03/22 17:00 WBC RBC Hgb Hct MCV MCH MCHC RDW Std Deviation RDW Coeff of Charly Plt Count MPV Immature Gran % (Auto) Neut % (Auto) Lymph % (Auto) [place] % (Auto) Eos % (Auto) Baso % (Auto) Neut # (Auto) Lymph # (Auto) [place] # (Auto) Eos # (Auto) Baso # (Auto) Immature Gran # (Auto) PT INR APTT PTT Ratio Sodium Potassium Chloride Carbon Dioxide Anion Gap BUN Creatinine Est Cr Clr Drug Dosing Est GFR ( Amer) Est GFR (Non-Af Amer) BUN/Creatinine Ratio Glucose POC Glucose Lactate Calcium Magnesium Total Bilirubin AST ALT Alkaline Phosphatase Troponin I High Sens Total Protein Albumin Globulin Albumin/Globulin Ratio Procalcitonin Urine Color Yellow Urine Appearance Cloudy A Urine pH 7.0 Ur Specific Barton 1.016 Urine Protein Negative Urine Glucose (UA) 2+ H Urine Ketones Trace H Urine Blood Negative Urine Nitrite Positive A Urine Bilirubin Negative Urine Urobilinogen Negative Ur Leukocyte Esterase Trace H Urine WBC (Auto) 5-10 H Urine RBC (Auto) 0-4 U Hyaline Cast (Auto) 1-5 U Epithel Cells (Auto) 20-30 H Urine Bacteria (Auto) 4+ H SARS-CoV-2 (PCR) Influenza Type A (PCR) Influenza Type B (PCR) RSV (RT-PCR) Diagnostic Findings Chest X-Ray 08/03/22 15:23 XR chest 1V portable CLINICAL HISTORY: Sepsis. COMPARISON STUDY: Chest CT December 19, 2018 and chest radiograph April 05, 2022. FINDINGS: Incidental note is made of severe osteoarthritis of the glenohumeral joints. Low lung volumes are again noted. This is unchanged. No pneumothorax or pleural effusion is present. Cardiomediastinal silhouette is stable. No consolidation is present. Interstitial thickening is likely chronic. IMPRESSION: No acute cardiopulmonary findings. Interstitial thickening, likely chronic. ACT 112: Negative or not required by law. Electronically signed by: Sylvain Lane M.D. 08/03/2022 4:[address] 08/03/22 15:23 CT head/brain wo con CLINICAL HISTORY: confusion Technique: Contiguous axial CT images of the head were acquired from the base of the skull to the vertex without intravenous contrast administration. Images were viewed in brain, subdural and bone windows. Automated dose lowering techniques and/or adjustment according to patient size were utilized for this exam. Comparison: Comparison is made to CT head 07/03/2022 Findings: Areas of decreased attenuation are present in the periventricular and subcortical white matter bilaterally consistent with small vessel ischemic disease. Generalized cerebral atrophy with commensurate enlargement of the ventricles, sulci, and cisterns is also present. There is no acute intracranial hemorrhage or evidence of acute territorial infarction. No shift of the midline structures, mass effect, or extra-axial abnormalities are shown. Atheros clerotic calcifications are present in the intracranial segments of the internal carotid arteries. Imaged portions of the paranasal sinuses and mastoid air cells are clear. The orbits appear normal. There are no acute fractures of the calvaria or scalp swelling. Impression: No acute intracranial hemorrhage, no evidence of acute territorial infarction or other acute intracranial disease process. ACT 112: Negative or not required by law. Electronically signed by: Shaw Solorzano M.D. 08/03/2022 3:59 PM EKG - my reading - NSR, LVH by voltage criteria, Q waves III/AVF, no ST changes Code Status & VTE Plan Code Status full code PG Care Time/CCT Total # of Minutes Spent Total Time Spent with Patient: Total time spent is greater than 50% in coordination of care (as documented) at patient's floor/unit and/or counseling patient: Coding Level of Care Code 76652 INT INP/OBS CARE 3/75MIN Diagnoses Acute encephalopathy G93.40 Hypoglycemia E16.2 UTI (urinary tract infection) N39.0 Kidney stones N20.0 Diabetes mellitus with diabetic polyneuropathy E11.42 Closed compression fracture of L1 vertebra S32.010A HTN (hypertension) I10 Hypertension type: essential hypertension GERD (gastroesophageal reflux disease) K21.9 Morbid obesity with BMI of 45.0-49.9, adult E66.01; Z68.42 DVT prophylaxis Z29.9 (1) HTN (hypertension) Hypertension type: essential hypertension Qualified Code(s): I10 - Essential (primary) hypertension
[2022-08-03] MEDS ORDERED: POTASSIUM CHLORIDE CRTAB 20 MEQ TABCR PO STA (19:53)
--- NOTE | 2022-08-03 20:13 | CT Scan Report ---
CT OF THE ABDOMEN AND PELVIS WITHOUT CONTRAST CLINICAL HISTORY: h/o kidney stones; UTI; eval stones/obstruction COMPARISON STUDY: CT of the abdomen and pelvis July 03, 2022. TECHNIQUE: Axial images of the abdomen and pelvis were obtained without IV contrast. Images were revi ewed in the axial, sagittal, and coronal planes. Automated exposure control was utilized for the najma dy. A dose lowering technique was utilized adhering to the principles of ALARA. FINDINGS: Visualized portions of the lung bases are unremarkable. No pneumatosis, free air or portal venous gas is present. There is no hydronephrosis. A punctate 2 mm nonobstructing left ureterovesical junction is noted. There are no additional urinary calculi. Water attenuation left midpole renal les ion is suboptimally assessed on this unenhanced exam but likely reflects a cyst. There is no biliary ductal dilatation status post cholecystectomy. Unenhanced images of the liver, spleen, adrenal glands and pancreas are unremarkable. There is no evidence for a bowel obstruction. Colonic diverticulosis is noted without evidence for acute diverticulitis. [Marked opacity is noted. Umbilical hernia repair with mesh is noted. The appendix is normal. There is no ascites or lymphadenopathy. Subacute L1 comp ression fracture involving the inferior endplate is noted. Vertebral body height loss has mildly incr eased since CT of July 03, 2022. Associated paravertebral stranding. Multilevel degenerative english es within lumbar spine are present. No acute fractures are identified within the lumbar spine, pelvis or hips. IMPRESSION: 1. No hydronephrosis. Punctate 2 mm nonobstructing left ureterovesical junction calculus. 2. No bowel obstruction. Colonic diverticulosis without evidence for acute diverticulitis. 3. Subacute L1 compression fracture, as above. ACT 112: Negative or not required by law. Electronically signed by: Sylvain Lane M.D. 08/03/2022 8:10 PM
[2022-08-03 20:44] LABS: Base Excess ABG 6.1 mEq/L (-9-1.8); HCO3 ABG 32 mmol/L (19-24); PCO2 ABG 49 mmHg (35-46); PO2 ABG 91 mmHg (80-95); pH ABG 7.42 (7.35-7.45)
[2022-08-03 21:27] LABS: Allen Test Pos (Pos)
[2022-08-03] MEDS ORDERED: ONDANSETRON INJ 2 MG/ML 2 ML VIAL IV PRN (21:30)
[2022-08-03] MEDS ORDERED: NITROGLYCERIN SL 0.4 MG/TAB TAB SL PRN (21:30)
[2022-08-03] MEDS ORDERED: GLUCAGON FOR INJ 1 MG VIAL IM PRN (21:45)
[2022-08-03] MEDS ORDERED: GLUCOSE 40% GEL 15 GM TUBE PO PRN (21:45)
[2022-08-03] MEDS ORDERED: DEXTROSE 50% 50 ML SYRINGE IV PRN (21:45)
[2022-08-03] MEDS ORDERED: CARBOHYDRATES FOR HYPOGLYCEMIA PO PRN (21:45)
[2022-08-03] MEDS ORDERED: GLUCOSE 10 TAB/TUBE PO PRN (21:45)
[2022-08-03] MEDS: NSS + 20MEQ KCL 20 MEQ/1,000 ML BAG IV SCH (22:22)
[2022-08-03] MEDS: LANTUS PER UNIT CHARGE SQ SCH (22:37)
[2022-08-03] MEDS: ACETAMINOPHEN 325 MG TAB PO SCH (22:38)
[2022-08-03] MEDS: ASPIRIN 81 MG ECTAB PO SCH (22:38)
[2022-08-03] MEDS: INSULIN ASPART PER UNIT SC SCH (22:38)
[2022-08-03] MEDS: DULoxetine HCL 60 MG CAP PO SCH (22:39)
[2022-08-04] MEDS ORDERED: PNEUMOCOCCAL Polysaccharide Vaccine 25mcg/0.5mL vial/Syr IM ONE (00:15)
[2022-08-04] MEDS: DULoxetine HCL 60 MG CAP PO SCH ×2 (08:24→20:27)
[2022-08-04] MEDS: ACETAMINOPHEN 325 MG TAB PO SCH ×4 (08:24→20:36)
[2022-08-04] MEDS: INSULIN ASPART PER UNIT SC SCH ×4 (08:24→20:35)
[2022-08-04] MEDS: CALCITONIN SALMON NA 200 IU/AC 3.7 ML BTL SCH (08:25)
[2022-08-04] MEDS: CHOLECALCIFEROL 1,000 UNITS 25 MCG TAB PO SCH (08:25)
[2022-08-04] MEDS: PANTOprazole 40 MG TAB PO SCH (08:25)
[2022-08-04] MEDS: CEROVITE ADV FORMULA TAB PO SCH (08:25)
[2022-08-04] MEDS: LANTUS PER UNIT CHARGE SQ SCH ×2 (08:26→20:35)
[2022-08-04 08:39] LABS: Hematocrit (blood only) 41.5 % (34.1-44.9); Hemoglobin 14.2 g/dl (12.0-16.0); Mean Corpuscular Hemoglobin 31.6 pg (25.0-34.0); Mean Corpuscular Hgb Conc 34.2 g/dL (32.0-36.0); Mean Corpuscular Volume 92.2 fL (80.0-100.0); Mean Platelet Volume 11.3 fL (9.4-12.3); Platelet Count 205 K/uL (130-400); RDW Coefficient of Variation 12.9 % (11.5-14.5); RDW Standard Deviation 43.4 fL (36.4-46.3)
[2022-08-04 09:10] LABS: BUN Creatinine Ratio 8.2 (10-20); Calcium 8.8 mg/dl (8.5-10.1); Creatinine Clr Calc Pharmacy 104.1 ml/min; Est GFR (African American) 108.7 ml/min; Est GFR (Non-African American) 93.8 ml/min; Potassium 3.6 mmol/L (3.5-5.1)
[2022-08-04] MEDS: ENOXAPARIN INJ 40 MG/0.4 ML SYR SQ SCH (10:10)
[2022-08-04] MEDS: NSS + 20MEQ KCL 20 MEQ/1,000 ML BAG IV SCH (11:35)
--- NOTE | 2022-08-04 13:38 | Hospitalist Progress Note ---
Date of Service August 04, 2022 Assessment & Plan (1) Acute encephalopathy: Plan: 2nd to UTI and passage of tiny kidney stone. Mentation improved overnight with Rx of UTI. Cont to Hold pain meds. Cont to Hold nortriptyline, topamax, oxybutinin. Of note - ammonia level and ABG were wnl/acceptable. Cont supportive care. (2) Hypoglycemia: Plan: By report her BSG was "low" upon EMS arrival to her home. However, since that time, her BSGs have been quite high or normal. Hypoglycemia has not recurred. (3) UTI (urinary tract infection): Plan: 2nd to gram neg crystal. Cont rocephin. UTI was likely 2nd to passage of tiny, 2mm left-sided kidney stone as seen on CT. Blood cx's thus far neg. (4) Kidney stones: Plan: seen on CT abd/pelvis in 07/2022. repeat [address] this admission with distal 2mm left ureteral stone at the UVJ. strain all urine. likely to not have symptoms (pain, etc) from this. spontaneous passage of such is highly likely. repeat a KUB in 48 hours to see if stone is visible. (5) Diabetes mellitus with diabetic polyneuropathy: Plan: No HbA1c since November 2021. Check in am. Continue lantus 15 units BID. Continue novolog - correction factor 30; carb ratio 1:10. (6) Closed compression fracture of L1 vertebra: Plan: Admitted for such in 07/2022. Hold pain meds as noted above in #1. CT yesterday with slight worsening of the L1 compression fracture but no retropulsion, etc. (7) HTN (hypertension): Plan: Hold atenolol for now. Uncertain why she is not on ELINOR or ARB therapy in light of diabetes. (8) GERD (gastroesophageal reflux disease): Plan: Continue PPI. (9) Morbid obesity with BMI of 45.0-49.9, adult: Plan: BMI 45 (10) DVT prophylaxis: Plan: lovenox 40mg daily Plan updated pt's son Benedicto yesterday and this evening PT, OT consults Admission and Anticipated Discharge Date Admission Date: August 03, 2022 Subjective tele overnight with NSR patient still confused, but able to answer questions more readily today really denied any complaints appetite remains poor denies pain in back or abdomen she thought she was at the "[facility]" Review of Systems Review of Systems: gen - remains fatigued/tired cv - no chest pain pulm - no cough/dyspnea GI - no pain/nausea/emesis Physical Exam Physical Exam: gen - obese but NAD, confused but less so than yesterday mouth - MMM neck - no JVD heart - RRR, s1 s2 lungs - CTA b/l back - no flank tenderness to palpation abd - soft NT ND BS+ ext - no edema, pulses 2+ b/l psych - oriented to person only but more awake/alert today Results & Data Results & Data ([facility]) Vital Signs (Past 12 Hours) Vital Signs Temp Pulse Pulse Resp BP Pulse Ox O2 Del Method 08/04/22 11:50 36.7 C 76 20 156/74 H 92 Room Air 08/04/22 11:19 Room Air 08/04/22 07:17 85 08/04/22 06:59 36.7 C 71 20 157/73 H 93 Room Air 08/04/22 02:41 36.8 C 75 18 140/64 89 L Room Air Laboratory Results Laboratory Results - last 24 hr 08/03/22 08/03/22 08/03/22 14:30 14:30 14:30 WBC 8.70 RBC 4.56 Hgb 14.2 Hct 42.0 MCV 92.1 MCH 31.1 MCHC 33.8 RDW Std Deviation 42.5 RDW Coeff of Charly 12.6 Plt Count 204 MPV 11.8 Immature Gran % (Auto) 0.7 Neut % (Auto) 65.1 Lymph % (Auto) 28.6 [place] % (Auto) 4.8 Eos % (Auto) 0.6 Baso % (Auto) 0.2 Neut # (Auto) 5.66 Lymph # (Auto) 2.49 [place] # (Auto) 0.42 Eos # (Auto) 0.05 Baso # (Auto) 0.02 Immature Gran # (Auto) 0.06 H PT 11.9 INR 1.1 APTT 27.8 PTT Ratio 1.0 ABG pH ABG pCO2 ABG pO2 ABG HCO3 ABG O2 Saturation ABG Base Excess [place] Test Oxygen Given Sodium Potassium Chloride Carbon Dioxide Anion Gap BUN Creatinine Est Cr Clr Drug Dosing Est GFR ( Amer) Est GFR (Non-Af Amer) BUN/Creatinine Ratio Glucose POC Glucose 387 H* Lactate Calcium Magnesium Total Bilirubin AST ALT Alkaline Phosphatase Ammonia Troponin I High Sens Total Protein Albumin Globulin Albumin/Globulin Ratio Procalcitonin Urine Color Urine Appearance Urine pH Ur Specific [place] Urine Protein Urine Glucose (UA) Urine Ketones Urine Blood Urine Nitrite Urine Bilirubin Urine Urobilinogen Ur Leukocyte Esterase Urine WBC (Auto) Urine RBC (Auto) U Hyaline Cast (Auto) U Epithel Cells (Auto) Urine Bacteria (Auto) SARS-CoV-2 (PCR) Influenza Type A (PCR) Influenza Type B (PCR) RSV (RT-PCR) 08/03/22 08/03/22 08/03/22 14:30 14:30 14:30 WBC RBC Hgb Hct MCV MCH MCHC RDW Std Deviation RDW Coeff of Charly Plt Count MPV Immature Gran % (Auto) Neut % (Auto) Lymph % (Auto) [place] % (Auto) Eos % (Auto) Baso % (Auto) Neut # (Auto) Lymph # (Auto) [place] # (Auto) Eos # (Auto) Baso # (Auto) Immature Gran # (Auto) PT INR APTT PTT Ratio ABG pH ABG pCO2 ABG pO2 ABG HCO3 ABG O2 Saturation ABG Base Excess [place]ito Test Oxygen Given Sodium 135 L Potassium 3.3 L Chloride 96 L Carbon Dioxide 32 Anion Gap 7 BUN 5 L Creatinine 0.57 L Est Cr Clr Drug Dosing Not Reportable Est GFR ( Amer) 111.2 Est GFR (Non-Af Amer) 95.9 BUN/Creatinine Ratio 8.8 L Glucose 420 H* POC Glucose Lactate Calcium 9.4 Magnesium 1.7 Total Bilirubin 0.7 AST 36 ALT 19 Alkaline Phosphatase 89 Ammonia Troponin I High Sens 6.8 Total Protein 6.8 Albumin 3.5 Globulin 3.3 Albumin/Globulin Ratio 1.1 Procalcitonin 0.06 Urine Color Urine Appearance Urine pH Ur Specific [place] Urine Protein Urine Glucose (UA) Urine Ketones Urine Blood Urine Nitrite Urine Bilirubin Urine Urobilinogen Ur Leukocyte Esterase Urine WBC (Auto) Urine RBC (Auto) U Hyaline Cast (Auto) U Epithel Cells (Auto) Urine Bacteria (Auto) SARS-CoV-2 (PCR) Influenza Type A (PCR) Influenza Type B (PCR) RSV (RT-PCR) 08/03/22 08/03/22 08/03/22 15:58 16:05 16:51 WBC RBC Hgb Hct MCV MCH MCHC RDW Std Deviation RDW Coeff of Charly Plt Count MPV Immature Gran % (Auto) Neut % (Auto) Lymph % (Auto) [place] % (Auto) Eos % (Auto) Baso % (Auto) Neut # (Auto) Lymph # (Auto) [place] # (Auto) Eos # (Auto) Baso # (Auto) Immature Gran # (Auto) PT INR APTT PTT Ratio ABG pH ABG pCO2 ABG pO2 ABG HCO3 ABG O2 Saturation ABG Base Excess [place] Test Oxygen Given Sodium Potassium Chloride Carbon Dioxide Anion Gap BUN Creatinine Est Cr Clr Drug Dosing Est GFR ( Amer) Est GFR (Non-Af Amer) BUN/Creatinine Ratio Glucose POC Glucose 237 H Lactate 1.9 Calcium Magnesium Total Bilirubin AST ALT Alkaline Phosphatase Ammonia Troponin I High Sens Total Protein Albumin Globulin Albumin/Globulin Ratio Procalcitonin Urine Color Urine Appearance Urine pH Ur Specific [place] Urine Protein Urine Glucose (UA) Urine Ketones Urine Blood Urine Nitrite Urine Bilirubin Urine Urobilinogen Ur Leukocyte Esterase Urine WBC (Auto) Urine RBC (Auto) U Hyaline Cast (Auto) U Epithel Cells (Auto) Urine Bacteria (Auto) SARS-CoV-2 (PCR) NEGATIVE Influenza Type A (PCR) Negative Influenza Type B (PCR) Negative RSV (RT-PCR) Negative 08/03/22 08/03/22 08/03/22 17:00 20:12 20:12 WBC RBC Hgb Hct MCV MCH MCHC RDW Std Deviation RDW Coeff of Charly Plt Count MPV Immature Gran % (Auto) Neut % (Auto) Lymph % (Auto) [place] % (Auto) Eos % (Auto) Baso % (Auto) Neut # (Auto) Lymph # (Auto) [place] # (Auto) Eos # (Auto) Baso # (Auto) Immature Gran # (Auto) PT INR APTT PTT Ratio ABG pH 7.42 ABG pCO2 49 H ABG pO2 91 ABG HCO3 32 H ABG O2 Saturation 99.0 H ABG Base Excess 6.1 H Jorgito Test Pos Oxygen Given 2L Sodium Potassium Chloride Carbon Dioxide Anion Gap BUN Creatinine Est Cr Clr Drug Dosing Est GFR ( Amer) Est GFR (Non-Af Amer) BUN/Creatinine Ratio Glucose POC Glucose Lactate Calcium Magnesium Total Bilirubin AST ALT Alkaline Phosphatase Ammonia 41.0 Troponin I High Sens Total Protein Albumin Globulin Albumin/Globulin Ratio Procalcitonin Urine Color Yellow Urine Appearance Cloudy A Urine pH 7.0 Ur Specific [place] 1.016 Urine Protein Negative Urine Glucose (UA) 2+ H Urine Ketones Trace H Urine Blood Negative Urine Nitrite Positive A Urine Bilirubin Negative Urine Urobilinogen Negative Ur Leukocyte Esterase Trace H Urine WBC (Auto) 5-10 H Urine RBC (Auto) 0-4 U Hyaline Cast (Auto) 1-5 U Epithel Cells (Auto) 20-30 H Urine Bacteria (Auto) 4+ H SARS-CoV-2 (PCR) Influenza Type A (PCR) Influenza Type B (PCR) RSV (RT-PCR) 08/03/22 08/03/22 08/04/22 20:12 22:29 07:35 WBC RBC Hgb Hct MCV MCH MCHC RDW Std Deviation RDW Coeff of Charly Plt Count MPV Immature Gran % (Auto) Neut % (Auto) Lymph % (Auto) [place] % (Auto) Eos % (Auto) Baso % (Auto) Neut # (Auto) Lymph # (Auto) [place] # (Auto) Eos # (Auto) Baso # (Auto) Immature Gran # (Auto) PT INR APTT PTT Ratio ABG pH ABG pCO2 ABG pO2 ABG HCO3 ABG O2 Saturation ABG Base Excess [place] Test Oxygen Given Sodium Potassium Chloride Carbon Dioxide Anion Gap BUN Creatinine Est Cr Clr Drug Dosing Est GFR ( Amer) Est GFR (Non-Af Amer) BUN/Creatinine Ratio Glucose POC Glucose 157 H 151 H Lactate Calcium Magnesium Total Bilirubin AST ALT Alkaline Phosphatase Ammonia Troponin I High Sens 7.2 Total Protein Albumin Globulin Albumin/Globulin Ratio Procalcitonin Urine Color Urine Appearance Urine pH Ur Specific [place] Urine Protein Urine Glucose (UA) Urine Ketones Urine Blood Urine Nitrite Urine Bilirubin Urine Urobilinogen Ur Leukocyte Esterase Urine WBC (Auto) Urine RBC (Auto) U Hyaline Cast (Auto) U Epithel Cells (Auto) Urine Bacteria (Auto) SARS-CoV-2 (PCR) Influenza Type A (PCR) Influenza Type B (PCR) RSV (RT-PCR) 08/04/22 08/04/22 08/04/22 07:56 07:56 12:00 WBC 7.10 RBC 4.50 Hgb 14.2 Hct 41.5 MCV 92.2 MCH 31.6 MCHC 34.2 RDW Std Deviation 43.4 RDW Coeff of Charly 12.9 Plt Count 205 MPV 11.3 Immature Gran % (Auto) Neut % (Auto) Lymph % (Auto) [place] % (Auto) Eos % (Auto) Baso % (Auto) Neut # (Auto) Lymph # (Auto) [place] # (Auto) Eos # (Auto) Baso # (Auto) Immature Gran # (Auto) PT INR APTT PTT Ratio ABG pH ABG pCO2 ABG pO2 ABG HCO3 ABG O2 Saturation ABG Base Excess Jorgito Test Oxygen Given Sodium 141 Potassium 3.6 Chloride 102 Carbon Dioxide 35 H Anion Gap 4 BUN 5 L Creatinine 0.61 Est Cr Clr Drug Dosing 104.1 Est GFR ( Amer) 108.7 Est GFR (Non-Af Amer) 93.8 BUN/Creatinine Ratio 8.2 L Glucose 159 H POC Glucose 162 H Lactate Calcium 8.8 Magnesium Total Bilirubin AST ALT Alkaline Phosphatase Ammonia Troponin I High Sens Total Protein Albumin Globulin Albumin/Globulin Ratio Procalcitonin Urine Color Urine Appearance Urine pH Ur Specific [place] Urine Protein Urine Glucose (UA) Urine Ketones Urine Blood Urine Nitrite Urine Bilirubin Urine Urobilinogen Ur Leukocyte Esterase Urine WBC (Auto) Urine RBC (Auto) U Hyaline Cast (Auto) U Epithel Cells (Auto) Urine Bacteria (Auto) SARS-CoV-2 (PCR) Influenza Type A (PCR) Influenza Type B (PCR) RSV (RT-PCR) Diagnostic Findings urine cx - GNR blood cx's negative PG Care Time/CCT Total # of Minutes Spent Total Time Spent with Patient: Total time spent is greater than 50% in coordination of care (as documented) at patient's floor/unit and/or counseling patient: Coding Level of Care Code 02501 SUB INP/OBS CARE 2/35MIN Diagnoses Acute encephalopathy G93.40 Hypoglycemia E16.2 UTI (urinary tract infection) N39.0 Kidney stones N20.0 Diabetes mellitus with diabetic polyneuropathy E11.42 Closed compression fracture of L1 vertebra S32.010A HTN (hypertension) I10 Hypertension type: essential hypertension GERD (gastroesophageal reflux disease) K21.9 Morbid obesity with BMI of 45.0-49.9, adult E66.01; Z68.42 DVT prophylaxis Z29.9 (1) HTN (hypertension) Hypertension type: essential hypertension Qualified Code(s): I10 - Essential (primary) hypertension
[2022-08-04] MEDS ORDERED: cefTRIAXone SODIUM 2,000 MG in DEXTROSE 5% 50 ML IV SCH (18:00)
[2022-08-04] MEDS: ASPIRIN 81 MG ECTAB PO SCH (20:27)
[2022-08-05 07:38] LABS: BUN Creatinine Ratio 10.9 (10-20); Calcium 8.8 mg/dl (8.5-10.1); Est GFR (African American) 112.5 ml/min; Est GFR (Non-African American) 97.1 ml/min; Potassium 3.4 mmol/L (3.5-5.1)
[2022-08-05] MEDS: INSULIN ASPART PER UNIT SC SCH ×4 (08:27→22:12)
[2022-08-05] MEDS: CHOLECALCIFEROL 1,000 UNITS 25 MCG TAB PO SCH (08:30)
[2022-08-05] MEDS: DULoxetine HCL 60 MG CAP PO SCH ×2 (08:30→22:10)
[2022-08-05] MEDS: CEROVITE ADV FORMULA TAB PO SCH (08:30)
[2022-08-05] MEDS: PANTOprazole 40 MG TAB PO SCH (08:30)
[2022-08-05] MEDS: CALCITONIN SALMON NA 200 IU/AC 3.7 ML BTL SCH (08:32)
[2022-08-05] MEDS: ENOXAPARIN INJ 40 MG/0.4 ML SYR SQ SCH (08:32)
[2022-08-05] MEDS: ACETAMINOPHEN 325 MG TAB PO SCH ×4 (08:36→22:15)
[2022-08-05] MEDS: POTASSIUM CHLORIDE CRTAB 20 MEQ TABCR PO SCH ×2 (08:36→22:11)
[2022-08-05] MEDS: LANTUS PER UNIT CHARGE SQ SCH ×2 (08:39→22:15)
[2022-08-05 10:06] LABS: Estimated Average Glucose 192 mg/dl; Hemoglobin A1C 8.3 % (4.5-5.6)
[2022-08-05] MEDS: carvediloL 3.125 MG TAB PO SCH ×2 (10:14→22:09)
[2022-08-05] MEDS ORDERED: PHENAZOPYRIDINE HCL 100 MG TAB PO PRN (17:41)
[2022-08-05] MEDS ORDERED: TAMSULOSIN HCL 0.4 MG CAP PO ONE (17:41)
[2022-08-05] MEDS: NSS + 20MEQ KCL 20 MEQ/1,000 ML BAG IV SCH (18:25)
--- NOTE | 2022-08-05 21:08 | Hospitalist Progress Note ---
Date of Service August 05, 2022 Assessment & Plan (1) Acute encephalopathy: Plan: 2nd to UTI and passage of tiny kidney stone. Mentation has improved since admission (at ER presentation could not answer any questions - was essentially nonverbal). With that said still remains confused, pulled out her IV earlier in the day, and mental status waxes/wanes. Cont to Hold pain meds. Cont to Hold nortriptyline, topamax, oxybutinin. Cont to hold lyrica. Of note - ammonia level and ABG were wnl/acceptable. Cont supportive care. Will order seroquel 12.5mg HS prn for severe agitation/confusion. If confusion persists --> MRI brain. Add melatonin 3mg HS - this may help with confusion. (2) Hypoglycemia: Plan: By report her BSG was "low" upon EMS arrival to her home prior to ER presentation. However, since that time, her BSGs have been high or normal. Hypoglycemia has not recurred. (3) UTI (urinary tract infection): Plan: 2nd to pansens e.coli. Stop rocephin. Change to keflex 500mg BID. Treat total 7 days IV/PO - day #3 today. UTI was likely 2nd to passage of tiny, 2mm left-sided kidney stone as seen on CT. She also has urinary incontinence at baseline. Blood cx's remain negative. Add pyridium 100mg prn for dysuria. (4) Kidney stones: Plan: seen on CT abd/pelvis in 07/2022. [address] this admission with distal 2mm left ureteral stone at the UVJ. strain all urine. likely to not have symptoms (pain, etc) from this. spontaneous passage of such is highly likely. check KUB in am to see if stone can be seen. creatinine remains stable suggesting no obstruction. add flomax 0.4mg daily - this will also help BP. (5) Diabetes mellitus with diabetic polyneuropathy: Plan: a1c 8.3%. Continue lantus 15 units BID. Continue novolog - correction factor 30; carb ratio 1:10. BSGs relatively stable with above regimen. (6) Closed compression fracture of L1 vertebra: Plan: Admitted for such in 07/2022. Compression Fx was due to a fall. Hold pain meds as noted above in #1. CT at admission with slight worsening of the L1 compression fracture but no retropulsion, etc. Has R hip flexion weakness - could it be from the L1 compression fracture causing L2 nerve root compromise? Consider MRI l-spine if needed. (7) HTN (hypertension): Plan: Atenolol changed to coreg 3.125mg BID for better BP control. Titrate as needed. Flomax for kidney stone will provide some BP control as well. (8) GERD (gastroesophageal reflux disease): Plan: Continue PPI. (9) Morbid obesity with BMI of 45.0-49.9, adult: Plan: BMI 41 (10) DVT prophylaxis: Plan: lovenox 40mg daily (11) Hypokalemia: Plan: replace with IV and PO supplementation repeat level am recent mag level wnl Plan updated pt's son Benedicto yesterday PT, OT consults appreciate - both advising SNF placement post-d/c [id number] was briefly updated at bedside Admission and Anticipated Discharge Date Admission Date: August 03, 2022 Subjective tele again overnight with NSR when I entered the room she said "hi Doc" she knew she was in the hospital but could not tell me the year or day she knew she was in the hospital because of a UTI ate well at breakfast and lunch but poorly at dinner no obvious kidney stone per staff incontinent of urine; using purewick; does have dysuria family/staff report ongoing confusion that waxes/wanes Review of Systems Review of Systems: gen - feels tired, weak cv - no chest pain pulm - no dyspnea at rest GI - no abd pain; no nausea; no emesis Physical Exam Physical Exam: gen - obese but NAD, confused; talkative, answering questions mouth - MMM neck - no JVD heart - RRR, s1 s2, no murmur lungs - CTA b/l back - no flank tenderness to palpation abd - soft NT ND BS+ ext - no edema, pulses 2+ b/l psych - oriented to person and place but not time neuro - strength of arms 5/5 b/l; R hip flexion about 4/5; L hip flexion 5/5; b/l ankle dorsiflexion/plantarflexion 5/5 Results & Data Results & Data ([facility]) Vital Signs (Past 12 Hours) Vital Signs Temp Pulse Pulse Resp BP BP Pulse Ox 08/05/22 19:16 36.8 C 69 18 187/82 H 93 08/05/22 16:00 82 08/05/22 16:04 36.8 C 89 18 169/73 H 95 08/05/22 12:04 37.0 C 77 18 177/95 H 93 O2 Del Method 08/05/22 19:16 Room Air 08/05/22 16:00 08/05/22 16:04 Room Air 08/05/22 12:04 Room Air Laboratory Results Laboratory Results - last 24 hr 08/05/22 08/05/22 08/05/22 06:12 06:12 07:44 Sodium 139 Potassium 3.4 L Chloride 101 Carbon Dioxide 32 Anion Gap 6 BUN 6 Creatinine 0.55 L Est Cr Clr Drug Dosing 116.0 Est GFR ( Amer) 112.5 Est GFR (Non-Af Amer) 97.1 BUN/Creatinine Ratio 10.9 Glucose 147 H POC Glucose 157 H Estimat Average Glucose 192 Hemoglobin A1c 8.3 H Calcium 8.8 08/05/22 08/05/22 08/05/22 11:28 16:41 20:00 Sodium Potassium Chloride Carbon Dioxide Anion Gap BUN Creatinine Est Cr Clr Drug Dosing Est GFR ( Amer) Est GFR (Non-Af Amer) BUN/Creatinine Ratio Glucose POC Glucose 204 H 164 H 151 H Estimat Average Glucose Hemoglobin A1c Calcium Diagnostic Findings urine cx - pansensitive e.coli blood cx's negative PG Care Time/CCT Total # of Minutes Spent Total Time Spent with Patient: Total time spent is greater than 50% in coordination of care (as documented) at patient's floor/unit and/or counseling patient: Coding Level of Care Code 90534 SUB INP/OBS CARE 3/50MIN Diagnoses Acute encephalopathy G93.40 Hypoglycemia E16.2 UTI (urinary tract infection) N39.0 Kidney stones N20.0 Diabetes mellitus with diabetic polyneuropathy E11.42 Closed compression fracture of L1 vertebra S32.010A HTN (hypertension) I10 Hypertension type: essential hypertension GERD (gastroesophageal reflux disease) K21.9 Morbid obesity with BMI of 45.0-49.9, adult E66.01; Z68.42 DVT prophylaxis Z29.9 Hypokalemia E87.6 (1) HTN (hypertension) Hypertension type: essential hypertension Qualified Code(s): I10 - Essential (primary) hypertension
[2022-08-05] MEDS: cephALEXin 500 MG CAP PO SCH (22:09)
[2022-08-05] MEDS: MELATONIN 3 MG TAB PO SCH (22:09)
[2022-08-05] MEDS: ASPIRIN 81 MG ECTAB PO SCH (22:10)
[2022-08-06] MEDS: NSS + 20MEQ KCL 20 MEQ/1,000 ML BAG IV SCH (07:50)
[2022-08-06] MEDS: INSULIN ASPART PER UNIT SC SCH ×4 (08:42→21:15)
[2022-08-06] MEDS: QUEtiapine FUMARATE 25 MG TABLET PO PRN (10:18)
[2022-08-06] MEDS: DULoxetine HCL 60 MG CAP PO SCH ×2 (10:19→21:18)
[2022-08-06] MEDS: POTASSIUM CHLORIDE CRTAB 20 MEQ TABCR PO SCH ×2 (10:19→21:17)
[2022-08-06] MEDS: cephALEXin 500 MG CAP PO SCH ×2 (10:19→21:17)
[2022-08-06] MEDS: CHOLECALCIFEROL 1,000 UNITS 25 MCG TAB PO SCH (10:20)
[2022-08-06] MEDS: carvediloL 3.125 MG TAB PO SCH (10:20)
[2022-08-06] MEDS: PANTOprazole 40 MG TAB PO SCH (10:20)
[2022-08-06] MEDS: TAMSULOSIN HCL 0.4 MG CAP PO SCH (10:20)
[2022-08-06] MEDS: CEROVITE ADV FORMULA TAB PO SCH (10:20)
[2022-08-06] MEDS: ENOXAPARIN INJ 40 MG/0.4 ML SYR SQ SCH (10:21)
[2022-08-06] MEDS: ACETAMINOPHEN 325 MG TAB PO SCH ×4 (10:23→21:14)
[2022-08-06] MEDS: CALCITONIN SALMON NA 200 IU/AC 3.7 ML BTL SCH (10:24)
[2022-08-06] MEDS: LANTUS PER UNIT CHARGE SQ SCH ×2 (10:24→21:15)
--- NOTE | 2022-08-06 11:59 | XRay Report ---
KUB HISTORY: kidney stone on L COMPARISON: Abdomen and pelvis CT 08/03/2022. FINDINGS: The bowel gas pattern is unremarkable. There are no dilated loops of small bowel to suggest an obstruction. No renal or ureteral calculi identified. Specifically, the patient's punctate left UVJ stone is not identified and could be obscured by overlying bowel. Prior cholecystectomy. Left tot al hip arthroplasty. No pneumoperitoneum or pneumatosis. IMPRESSION: No renal or ureteral calculi identified. Specifically, the patient's punctate left UVJ stone is not i dentified and could be obscured by overlying bowel. ACT 112: Negative or not required by law. Electronically signed by: Florencio Max M.D. 08/06/2022 11:58 AM
[2022-08-06 13:20] LABS: Basophils # (auto) 0.04 K/uL (0-0.2); Basophils % (auto) 0.4 %; Eosinophils # (auto) 0.09 K/uL (0-0.50); Eosinophils % (auto) 0.9 %; Hematocrit (blood only) 43.9 % (34.1-44.9); Hemoglobin 15.1 g/dl (12.0-16.0); Immature Granulocytes # (auto) 0.04 K/uL (0.00-0.02); Immature Granulocytes % (auto) 0.4 %; Lymphocytes # (auto) 2.85 K/uL (1.2-3.4); Lymphocytes % (auto) 27.8 %; Mean Corpuscular Hemoglobin 31.5 pg (25.0-34.0); Mean Corpuscular Hgb Conc 34.4 g/dL (32.0-36.0); Mean Corpuscular Volume 91.5 fL (80.0-100.0); Mean Platelet Volume 11.1 fL (9.4-12.3); Monocytes # (auto) 0.48 K/uL (0.24-0.82); Monocytes % (auto) 4.7 %; Neutrophils # (auto) 6.75 K/uL (1.4-6.5); Neutrophils % (auto) 65.8 %; Platelet Count 220 K/uL (130-400); RDW Coefficient of Variation 12.5 % (11.5-14.5); RDW Standard Deviation 41.2 fL (36.4-46.3); White Blood Count 10.25 K/ul (4.8-10.8)
[2022-08-06 13:40] LABS: Calcium 9.7 mg/dl (8.5-10.1); Creatinine Clr Calc Pharmacy 125.7 ml/min; Est GFR (African American) 116.1 ml/min; Est GFR (Non-African American) 100.2 ml/min; Potassium 4.3 mmol/L (3.5-5.1)
[2022-08-06] MEDS: MICONAZOLE NITRATE POWDER 43 GM EXT PRN (17:22)
--- NOTE | 2022-08-06 19:50 | Hospitalist Progress Note ---
Date of Service August 06, 2022 Assessment & Plan (1) Acute encephalopathy: Plan: 2nd to UTI and passage of tiny kidney stone. Mentation has improved since admission (at ER presentation could not answer any questions - was essentially nonverbal). Confusion again improved vs yesterday. Cont to Hold pain meds - has not complained of pain while here. Cont to Hold nortriptyline, topamax, oxybutinin. Cont to hold lyrica. Of note - ammonia level and ABG were wnl/acceptable. Cont supportive care. Ordered seroquel 12.5mg HS prn for severe agitation/confusion. If confusion persists --> MRI brain. Cont melatonin 3mg HS. (2) Hypoglycemia: Plan: By report her BSG was "low" upon EMS arrival to her home prior to ER presentation. However, since that time, her BSGs have been high or normal. (3) UTI (urinary tract infection): Plan: 2nd to pansens e.coli. Stopped rocephin. Changed to keflex 500mg BID. Treat total 7 days IV/PO - day #4 today. UTI was likely 2nd to passage of tiny, 2mm left-sided kidney stone as seen on CT. She also has urinary incontinence at baseline. Blood cx's remain negative. Cont pyridium 100mg prn for dysuria. (4) Kidney stones: Plan: seen on CT abd/pelvis in 07/[address]22. [address] this admission with distal 2mm left ureteral stone at the UVJ. strain all urine. likely to not have symptoms (pain, etc) from this. spontaneous passage of such is highly likely. KUB today without identifiable stone. Creatinine remains stable suggesting no obstruction. Cont flomax 0.4mg daily - this will also help BP. (5) Diabetes mellitus with diabetic polyneuropathy: Plan: a1c 8.3%. Continue lantus 15 units BID. Continue novolog - correction factor 30; carb ratio 1:10. BSGs controlled. (6) Closed compression fracture of L1 vertebra: Plan: Admitted for such in 07/2022. Compression Fx was due to a fall. Hold pain meds as noted above in #1. CT at admission with slight worsening of the L1 compression fracture but no retropulsion, etc. Bilateral LEs with symmetric strength. Cont PT/OT. (7) HTN (hypertension): Plan: Atenolol changed to coreg 3.125mg BID for better BP control. Titrate to 6.25mg BID today. Flomax for kidney stone will provide some BP control as well. (8) GERD (gastroesophageal reflux disease): Plan: Continue PPI. (9) Morbid obesity with BMI of 45.0-49.9, adult: Plan: BMI 40-41 (10) DVT prophylaxis: Plan: lovenox 40mg daily (11) Hypokalemia: Plan: replaced PO/IV resolved recheck K and mag in am d/c K supplements (12) Diarrhea: Plan: check c.diff in light of abx usage if neg may use loperamide prn Plan updated pt's son Benedicto this week updated pt's today at bedside PT, OT consults appreciated - both advising SNF placement post-d/c patient agreeable to rehab Admission and Anticipated Discharge Date Admission Date: August 03, 2022 Subjective at bedside during my visit he feels she is doing much better Mrs [place] remembered me from yesterday knew she was in the hospital for a "UTI" uncertain about the year/month/day but knows we just celebrated X-mas she denies any complaints strength is improved appetite fair drinking fluids better we discussed rehab post-d/c -- she was agreeable Review of Systems Review of Systems: tele overnight wnl gen - feels better cv - no cp pulm - no dyspnea, no cough GI - no nausea/emesis; late this afternoon started to have diarrhea Physical Exam Physical Exam: gen - obese, NAD; confusion improved mouth - MMM neck - no JVD heart - RRR, s1 s2, no murmur lungs - CTA b/l back - no flank tenderness to palpation abd - soft NT ND BS+ ext - no edema, pulses 2+ b/l psych - oriented to person and place but not time neuro - strength 5/5 x 4 exts; speech clear/fluent; no facial droop Results & Data Results & Data ([facility]) Vital Signs (Past 12 Hours) Vital Signs Temp Pulse Pulse Resp BP Pulse Ox Pulse Ox 08/06/22 14:22 68 08/06/22 16:00 94 08/06/22 15:44 36.5 C 77 18 162/78 H 94 08/06/22 11:46 36.6 C 68 18 149/94 H 93 08/06/22 07:50 08/06/22 07:52 36.9 C 69 18 200/71 H 94 O2 Del Method O2 Del Method O2 Flow Rate 08/06/22 14:22 08/06/22 16:00 Room Air 0 08/06/22 15:44 Room Air 08/06/22 11:46 Room Air 08/06/22 07:50 Room Air 08/06/22 07:52 Room Air Laboratory Results Laboratory Results - last 24 hr 08/05/22 08/06/22 08/06/22 20:00 07:46 11:34 WBC RBC Hgb Hct MCV MCH MCHC RDW Std Deviation RDW Coeff of Charly Plt Count MPV Immature Gran % (Auto) Neut % (Auto) Lymph % (Auto) [place] % (Auto) Eos % (Auto) Baso % (Auto) Neut # (Auto) Lymph # (Auto) [place] # (Auto) Eos # (Auto) Baso # (Auto) Immature Gran # (Auto) Sodium Potassium Chloride Carbon Dioxide Anion Gap BUN Creatinine Est Cr Clr Drug Dosing Est GFR ( Amer) Est GFR (Non-Af Amer) BUN/Creatinine Ratio Glucose POC Glucose 151 H 125 H 166 H Calcium Vitamin B12 08/06/22 08/06/22 08/06/22 13:08 13:08 13:08 WBC 10.25 RBC 4.80 Hgb 15.1 Hct 43.9 MCV 91.5 MCH 31.5 MCHC 34.4 RDW Std Deviation 41.2 RDW Coeff of Charly 12.5 Plt Count 220 MPV 11.1 Immature Gran % (Auto) 0.4 Neut % (Auto) 65.8 Lymph % (Auto) 27.8 [place] % (Auto) 4.7 Eos % (Auto) 0.9 Baso % (Auto) 0.4 Neut # (Auto) 6.75 H Lymph # (Auto) 2.85 [place] # (Auto) 0.48 Eos # (Auto) 0.09 Baso # (Auto) 0.04 Immature Gran # (Auto) 0.04 H Sodium 136 Potassium 4.3 D Chloride 102 Carbon Dioxide 28 Anion Gap 6 BUN 9 Creatinine 0.50 L Est Cr Clr Drug Dosing 125.7 Est GFR ( Amer) 116.1 Est GFR (Non-Af Amer) 100.2 BUN/Creatinine Ratio 18.0 Glucose 172 H POC Glucose Calcium 9.7 Vitamin B12 343 08/06/22 16:32 WBC RBC Hgb Hct MCV MCH MCHC RDW Std Deviation RDW Coeff of Charly Plt Count MPV Immature Gran % (Auto) Neut % (Auto) Lymph % (Auto) [place] % (Auto) Eos % (Auto) Baso % (Auto) Neut # (Auto) Lymph # (Auto) [place] # (Auto) Eos # (Auto) Baso # (Auto) Immature Gran # (Auto) Sodium Potassium Chloride Carbon Dioxide Anion Gap BUN Creatinine Est Cr Clr Drug Dosing Est GFR ( Amer) Est GFR (Non-Af Amer) BUN/Creatinine Ratio Glucose POC Glucose 106 H Calcium Vitamin B12 PG Care Time/CCT Total # of Minutes Spent Total Time Spent with Patient: Total time spent is greater than 50% in coordination of care (as documented) at patient's floor/unit and/or counseling patient: Coding Level of Care Code 11596 SUB INP/OBS CARE 2/35MIN Diagnoses Acute encephalopathy G93.40 Hypoglycemia E16.2 UTI (urinary tract infection) N39.0 Kidney stones N20.0 Diabetes mellitus with diabetic polyneuropathy E11.42 Closed compression fracture of L1 vertebra S32.010A HTN (hypertension) I10 Hypertension type: essential hypertension GERD (gastroesophageal reflux disease) K21.9 Morbid obesity with BMI of 45.0-49.9, adult E66.01; Z68.42 DVT prophylaxis Z29.9 Hypokalemia E87.6 Diarrhea R19.7 (1) HTN (hypertension) Hypertension type: essential hypertension Qualified Code(s): I10 - Essential (primary) hypertension
[2022-08-06] MEDS: ASPIRIN 81 MG ECTAB PO SCH (21:16)
[2022-08-06] MEDS: carvediloL 6.25 MG TAB PO SCH (21:16)
[2022-08-06] MEDS: MELATONIN 3 MG TAB PO SCH (21:19)
[2022-08-07] MEDS ORDERED: LOPERAMIDE HCL 2 MG CAP PO PRN (05:59)
[2022-08-07 08:02] LABS: Potassium 3.9 mmol/L (3.5-5.1)
[2022-08-07] MEDS: INSULIN ASPART PER UNIT SC SCH ×5 (08:22→20:42)
[2022-08-07 08:27] LABS: BUN Creatinine Ratio 18.9 (10-20); Calcium 9.3 mg/dl (8.5-10.1); Est GFR (African American) 113.9 ml/min; Est GFR (Non-African American) 98.2 ml/min; Magnesium 1.9 mg/dl (1.7-2.4)
[2022-08-07] MEDS: ACETAMINOPHEN 325 MG TAB PO SCH ×4 (08:41→20:48)
[2022-08-07] MEDS: CALCITONIN SALMON NA 200 IU/AC 3.7 ML BTL SCH (08:46)
[2022-08-07] MEDS: QUEtiapine FUMARATE 25 MG TABLET PO PRN (08:47)
[2022-08-07] MEDS: LANTUS PER UNIT CHARGE SQ SCH ×2 (08:47→20:46)
[2022-08-07] MEDS: DULoxetine HCL 60 MG CAP PO SCH ×2 (08:47→20:49)
[2022-08-07] MEDS: cephALEXin 500 MG CAP PO SCH ×2 (08:47→20:49)
[2022-08-07] MEDS: carvediloL 6.25 MG TAB PO SCH ×2 (08:47→20:50)
[2022-08-07] MEDS: PANTOprazole 40 MG TAB PO SCH (08:48)
[2022-08-07] MEDS: ENOXAPARIN INJ 40 MG/0.4 ML SYR SQ SCH (08:48)
[2022-08-07] MEDS: CHOLECALCIFEROL 1,000 UNITS 25 MCG TAB PO SCH (08:48)
[2022-08-07] MEDS: CEROVITE ADV FORMULA TAB PO SCH (08:48)
[2022-08-07] MEDS: TAMSULOSIN HCL 0.4 MG CAP PO SCH (08:48)
[2022-08-07] MEDS: MICONAZOLE NITRATE POWDER 43 GM EXT PRN (12:31)
--- NOTE | 2022-08-07 18:16 | Hospitalist Progress Note ---
Date of Service August 07, 2022 Assessment & Plan (1) Acute encephalopathy: Plan: Resolved. was 2nd to UTI and passage of tiny kidney stone. Cont to Hold pain meds - has complained of minimal pain while here. Resume topamax tonight. Resume lyrica in the am. Still hold oxybutinin. Cont melatonin 3mg HS. Of note - ammonia level and ABG were wnl/acceptable. Seroquel 12.5mg HS prn for severe agitation/confusion ordered. (2) UTI (urinary tract infection): Plan: 2nd to pansens e.coli. Stopped rocephin. Changed to keflex 500mg BID. Treat total 7 days IV/PO - day #5 today. UTI was likely 2nd to passage of tiny, 2mm left-sided kidney stone as seen on CT. She also has urinary incontinence at baseline. Blood cx's remain negative. Cont pyridium 100mg prn for dysuria. (3) Kidney stones: Plan: seen on CT abd/pelvis in 07/[address]22. [address] this admission with distal 2mm left ureteral stone at the UVJ. strain all urine. likely to not have, or have had, symptoms (pain, etc) from this. spontaneous passage of such is highly likely. KUB 08/06/22 without identifiable stone. Creatinine remains stable suggesting no obstruction. Cont flomax 0.4mg daily - this will also help BP. (4) Diabetes mellitus with diabetic polyneuropathy: Plan: a1c 8.3%. Continue lantus 15 units BID. Continue novolog - correction factor 30; carb ratio 1:10. BSGs controlled nicely while here. (5) Closed compression fracture of L1 vertebra: Plan: Admitted for such in 07/2022. Compression Fx was due to a fall. Hold pain meds as noted above in #1. CT at admission with slight worsening of the L1 compression fracture but no retropulsion, etc. Bilateral LEs with symmetric strength. Cont PT/OT. (6) HTN (hypertension): Plan: Atenolol changed to coreg 3.125mg BID for better BP control. Titrated to 6.25mg BID 08/06. Cont Flomax. BPS improved. (7) GERD (gastroesophageal reflux disease): Plan: Continue PPI. (8) Morbid obesity with BMI of 45.0-49.9, adult: Plan: BMI 40-41 (9) DVT prophylaxis: Plan: lovenox 40mg daily (10) Hypokalemia: Plan: replaced resolved (11) Diarrhea: Plan: c diff negative may use imodium prn Plan updated pt's son Benedicto this week updated pt's 08/06/22 at bedside PT, OT consults appreciated - both advising SNF placement post-d/c -- but that was when she was severely altered & lethargic she is doing MUCH better will have PT/OT re-eval on 08/08 to see if d/c to home is a possibility or if SNF is still needed patient agreeable to rehab if necessary however Admission and Anticipated Discharge Date Admission Date: August 03, 2022 Subjective patient feeling very good wants to go home eating better confusion is better staff report she ambulated to bathroom and did well only complaint is low back pain "from my broken back" denies abd pain no diarrhea today tele overnight wnl Review of Systems Review of Systems: gen - good energy, no fevers cv - no cp, no orthopnea pulm - no dyspnea or PHILIPPE GI - no nausea/emesis Physical Exam Physical Exam: gen - obese, NAD; confusion nearly resolved mouth - MMM neck - no JVD heart - RRR, s1 s2, no murmur lungs - CTA b/l back - no flank tenderness to palpation abd - soft NT ND BS+ ext - no edema, pulses 2+ b/l psych - oriented to person, place and time today Results & Data Results & Data ([facility]) Vital Signs (Past 12 Hours) Vital Signs Temp Pulse Pulse Resp BP BP Pulse Ox 08/07/22 16:01 36.2 C L 56 L 19 119/72 92 08/07/22 14:03 55 L 08/07/22 11:49 36.9 C 64 20 176/84 H 96 08/07/22 08:30 08/07/22 07:52 37.1 C 62 19 173/78 H 94 O2 Del Method 08/07/22 16:01 Room Air 08/07/22 14:03 08/07/22 11:49 Room Air 08/07/22 08:30 Room Air 08/07/22 07:52 Room Air Laboratory Results Laboratory Results - last 24 hr 08/06/22 08/06/22 08/07/22 19:56 21:40 07:12 Sodium 138 Potassium 3.9 Chloride 102 Carbon Dioxide 29 Anion Gap 7 BUN 10 Creatinine 0.53 L Est Cr Clr Drug Dosing 119.0 Est GFR ( Amer) 113.9 Est GFR (Non-Af Amer) 98.2 BUN/Creatinine Ratio 18.9 Glucose 140 H POC Glucose 108 H Calcium 9.3 Magnesium 1.9 Stl C. diff Tox B Gene Negative Cdiff Gene 08/07/22 08/07/22 08/07/22 07:39 11:38 16:38 Sodium Potassium Chloride Carbon Dioxide Anion Gap BUN Creatinine Est Cr Clr Drug Dosing Est GFR ( Amer) Est GFR (Non-Af Amer) BUN/Creatinine Ratio Glucose POC Glucose 145 H 194 H 155 H Calcium Magnesium Stl C. diff Tox B Gene Diagnostic Findings blood cx's negative PG Care Time/CCT Total # of Minutes Spent Total Time Spent with Patient: Total time spent is greater than 50% in coordination of care (as documented) at patient's floor/unit and/or counseling patient: Coding Level of Care Code 62264 SUB INP/OBS CARE 2/35MIN Diagnoses Acute encephalopathy G93.40 UTI (urinary tract infection) N39.0 Kidney stones N20.0 Diabetes mellitus with diabetic polyneuropathy E11.42 Closed compression fracture of L1 vertebra S32.010A HTN (hypertension) I10 Hypertension type: essential hypertension GERD (gastroesophageal reflux disease) K21.9 Morbid obesity with BMI of 45.0-49.9, adult E66.01; Z68.42 DVT prophylaxis Z29.9 Hypokalemia E87.6 Diarrhea R19.7 (1) HTN (hypertension) Hypertension type: essential hypertension Qualified Code(s): I10 - Essential (primary) hypertension
[2022-08-07] MEDS: MELATONIN 3 MG TAB PO SCH (20:49)
[2022-08-07] MEDS: ASPIRIN 81 MG ECTAB PO SCH (20:49)
[2022-08-07] MEDS: TOPIRAMATE 25 MG TAB PO SCH (20:51)
[2022-08-08] MEDS: CALCITONIN SALMON NA 200 IU/AC 3.7 ML BTL SCH (08:16)
[2022-08-08] MEDS: PANTOprazole 40 MG TAB PO SCH (08:17)
[2022-08-08] MEDS: QUEtiapine FUMARATE 25 MG TABLET PO PRN (08:17)
[2022-08-08] MEDS: ENOXAPARIN INJ 40 MG/0.4 ML SYR SQ SCH (08:17)
[2022-08-08] MEDS: carvediloL 6.25 MG TAB PO SCH ×2 (08:17→17:42)
[2022-08-08] MEDS: cephALEXin 500 MG CAP PO SCH ×2 (08:17→17:43)
[2022-08-08] MEDS: CHOLECALCIFEROL 1,000 UNITS 25 MCG TAB PO SCH (08:17)
[2022-08-08] MEDS: DULoxetine HCL 60 MG CAP PO SCH (08:18)
[2022-08-08] MEDS: TOPIRAMATE 25 MG TAB PO SCH (08:18)
[2022-08-08] MEDS: TAMSULOSIN HCL 0.4 MG CAP PO SCH (08:18)
[2022-08-08] MEDS: LANTUS PER UNIT CHARGE SQ SCH (08:18)
[2022-08-08] MEDS: ACETAMINOPHEN 325 MG TAB PO SCH ×3 (08:18→17:42)
[2022-08-08] MEDS: CEROVITE ADV FORMULA TAB PO SCH (08:18)
[2022-08-08] MEDS: INSULIN ASPART PER UNIT SC SCH ×3 (08:20→17:27)
[2022-08-08] MEDS ORDERED: PREGABALIN 75 MG CAP PO SCH (09:00)
--- NOTE | 2022-08-08 13:02 | Discharge Summary ---
Date of Service date of admission - August 03, 2022 date of discharge - August 08, 2022 Admission HPI Per Admitting Provider 67yo female with T2DM, diabetic neuropathy, HTN, and recent hospital admission in 07/2022 for a fall with resulting L1 compression fracture. She presents today from home via EMS due to altered mental status. During my visit she was significantly confused and only able to tell me that she was "here for a UTI." She thought it was 2019 and could not tell me the month or day. By report a home health nurse was came to her home to check on her who has home health services. The home health nurse noted that Mrs Gresham was confused. Thus EMS was summoned. Upon EMS arrival apparently a fingerstick blood sugar registered as "low." She was given 200cc of D10W and glucose tablets by mouth. A repeat BSG was then about 400. During my assessment she was requiring 2 liters of NC O2. Attempts to remove it would lead to O2 saturation of about 89% at lowest. She was sleepy but did follow commands. She could offer little other pertinent information regarding her illness. Principal Diagnosis 1. Acute metabolic encephalopathy 2nd to UTI 2. 2mm left-sided ureteral kidney stone with likely spontaneous passage 3. L1 compression fracture - chronic/subacute Discharge Exam gen - obese, NAD; confusion resolved mouth - MMM neck - no JVD heart - RRR, s1 s2, no murmur lungs - CTA b/l back - no flank tenderness to palpation abd - soft NT ND BS+ ext - no edema, pulses 2+ b/l psych - oriented to person, place and time today neuro - strength of legs 5/5 b/l Discharge Data Allergies Allergy/AdvReac Type Severity Reaction Status Date / Time tetanus toxoid, adsorbed Allergy Severe TROUBLE Verified 08/13/22 10:01 BREATHING Penicillins Allergy Mild ITCHINESS Verified 08/13/22 10:01 onion Allergy Unknown ? Verified 08/13/22 10:01 REACTION, ALLERGY SHOWN ON SKIN TEST orange Allergy Unknown PATCH Verified 08/13/22 10:01 TESTED HIVES REACTION tomato Allergy Unknown COUGHING Verified 08/13/22 10:01 morphine AdvReac Intermediate Gets wild Verified 08/13/22 10:01 and has the shakes meperidine AdvReac Mild NAUSEA AND Verified 08/13/22 10:01 VOMITING metformin AdvReac Mild diarrhea Verified 08/13/22 10:01 oxycodone AdvReac Mild Nausea/Vomi Verified 08/13/22 10:01 ting atorvastatin [From Lipitor] AdvReac Headache Verified 08/13/22 10:01 sulfamethoxazole AdvReac Unknown Verified 08/13/22 10:01 [From Bactrim] trimethoprim [From Bactrim] AdvReac Unknown Verified 08/13/22 10:01 Consultations PT, OT Ordered Studies Chest X-Ray 08/03/22 15:23 XR chest 1V portable CLINICAL HISTORY: Sepsis. COMPARISON STUDY: Chest CT December 19, 2018 and chest radiograph April 05, 2022. FINDINGS: Incidental note is made of severe osteoarthritis of the glenohumeral joints. Low lung volumes are again noted. This is unchanged. No pneumothorax or pleural effusion is present. Cardiomediastinal silhouette is stable. No consolidation is present. Interstitial thickening is likely chronic. IMPRESSION: No acute cardiopulmonary findings. Interstitial thickening, likely chronic. ACT 112: Negative or not required by law. Electronically signed by: Sylvain Lane M.D. 08/03/2022 4:[address] 08/03/22 15:23 CT head/brain wo con CLINICAL HISTORY: confusion Technique: Contiguous axial CT images of the head were acquired from the base of the skull to the vertex without intravenous contrast administration. Images were viewed in brain, subdural and bone windows. Automated dose lowering techniques and/or adjustment according to patient size were utilized for this exam. Comparison: Comparison is made to CT head 07/03/2022 Findings: Areas of decreased attenuation are present in the periventricular and subcortical white matter bilaterally consistent with small vessel ischemic dise ase. Generalized cerebral atrophy with commensurate enlargement of the ventricles, sulci, and cisterns is also present. There is no acute intracranial hemorrhage or evidence of acute territorial infarction. No shift of the midline structures, mass effect, or extra-axial abnormalities are shown. Atherosclerotic calcifications are present in the intracranial segments of the internal carotid arteries. Imaged portions of the paranasal sinuses and mastoid air cells are clear. The orbits appear normal. There are no acute fractures of the calvaria or scalp swelling. Impression: No acute intracranial hemorrhage, no evidence of acute territorial infarction or other acute intracranial disease process. ACT 112: Negative or not required by law. Electronically signed by: Shaw Solorzano M.D. 08/03/2022 3:59 PM Abdomen/Pelvis CT 08/03/22 19:20 CT OF THE ABDOMEN AND PELVIS WITHOUT CONTRAST CLINICAL HISTORY: h/o kidney stones; UTI; eval stones/obstruction COMPARISON STUDY: CT of the abdomen and pelvis July 03, 2022. TECHNIQUE: Axial images of the abdomen and pelvis were obtained without IV contrast. Images were reviewed in the axial, sagittal, and coronal planes. Automated exposure control was utilized for the study. A dose lowering technique was utilized adhering to the principles of ALARA. FINDINGS: Visualized portions of the lung bases are unremarkable. No pneumatosis, free air or portal venous gas is present. There is no hydronephrosis. A punctate 2 mm nonobstructing left ureterovesical junction is noted. There are no additional urinary calculi. Water attenuation left midpole renal lesion is suboptimally assessed on this unenhanced exam but likely reflects a cyst. There is no biliary ductal dilatation status post flower cystectomy. Unenhanced images of the liver, spleen, adrenal glands and pancreas are unremarkable. There is no evidence for a bowel obstruction. Colonic diverticulosis is noted without evidence for acute diverticulitis. [Marked opacity is noted. Umbilical hernia repair with mesh is noted. The appendix is normal. There is no ascites or lymphadenopathy. Subacute L1 compression fracture involving the inferior endplate is noted. Vertebral body height loss has mildly increased since CT of July 03, 2022. Associated paravertebral stranding. Multilevel degenerative changes within lumbar spine are present. No acute fractures are identified within the lumbar spine, pelvis or hips. IMPRESSION: 1. No hydronephrosis. Punctate 2 mm nonobstructing left ureterovesical junction calculus. 2. No bowel obstruction. Colonic diverticulosis without evidence for acute diverticulitis. 3. Subacute L1 compression fracture, as above. ACT 112: Negative or not required by law. Electronically signed by: Sylvain Lane M.D. 08/03/2022 8:10 PM KUB X-Ray 08/06/22 07:00 KUB HISTORY: kidney stone on L COMPARISON: Abdomen and pelvis CT 08/03/2022. FINDINGS: The bowel gas pattern is unremarkable. There are no dilated loops of small bowel to suggest an obstruction. No renal or ureteral calculi identified. Specifically, the patient's punctate left UVJ stone is not identified and could be obscured by overlying bowel. Prior cholecystectomy. Left total hip arthroplasty. No pneumoperitoneum or pneumatosis. IMPRESSION: No renal or ureteral calculi identified. Specifically, the patient's punctate left UVJ stone is not identified and could be obscured by overlying bowel. ACT 112: Negative or not required by law. Electronically signed by: Florencio Max M.D. 08/06/2022 11:58 AM Hospital Course (1) Acute encephalopathy: Resolved. Was 2nd to UTI in the setting of passage of a left-sided 2mm kidney stone. I cannot rule out that polypharmacy was also playing a role as she is on numerous medications that have sedative properties. Ammonia level and ABG were wnl/acceptable. COVID testing was negative. Flu testing was negative. Blood cultures remained negative while here. At discharge her mentation is back to normal. She will complete a few more days of oral antibiotic for her UTI at discharge. Additionally, I recommended she stop or lower the dose of the following medications - * narcotic pain meds (she is having minimal pain related to her L1 compression fracture) * nortriptyline * topamax (contraindicated in the setting of kidney stones) * oxybutinin - take AM dose only; stop the PM dose (2) UTI (urinary tract infection): 2nd to pansensitive e.coli. Received several days of rocephin then changed to keflex 500mg BID. She will complete 5 additional days of keflex at home. She will complete ~10 day course of IV/PO antibiotics. UTI was likely 2nd to passage of tiny, 2mm left-sided kidney stone as seen on CT. She also has urinary incontinence at baseline. Blood cx's remained negative. (3) Kidney stones: seen on CT abd/pelvis in 07/2022. repeat CT this admission with distal 2mm left ureteral stone at the UVJ. strained all urine but no stone was retrieved. despite not finding the stone I suspect she had spontaneous passage of the stone given its tiny size. KUB 08/06/22 without identifiable stone. Creatinine was stable while here suggesting no obstruction. Cont flomax 0.4mg daily - this will also help her hypertension. Decision will need to be made as outpatient about when to stop the flomax. (4) Diabetes mellitus with diabetic polyneuropathy: a1c 8.3%. Continue her prior diabetic regimen upon discharge (Tresiba + Victoza). Her BSGs were well-controlled while here. (5) Closed compression fracture of L1 vertebra: Admitted to [facility] for such in 07/2022. Compression Fx was due to a fall. I held her pain meds as noted above in #1. CT at admission with slight worsening of the L1 compression fracture but no retropulsion, etc. Bilateral LEs with symmetric strength during the visit. She received PT/OT while here and was cleared for home with family. She will continue PT/OT at home. She had minimal pain from the subacute/chronic L1 fracture and, given the recent confusion, was asked to stop the narcotic pain meds. (6) HTN (hypertension): Atenolol changed to coreg 3.125mg BID for better BP control. Titrated to 6.25mg BID 08/06/22. Cont Flomax. She may need additional agents and/or titration for optimal BP control. She will need close f/u with her PCP for this. (7) GERD (gastroesophageal reflux disease): Continue PPI. (8) Morbid obesity with BMI of 45.0-49.9, adult: BMI 40-41 (9) Hypokalemia: replaced resolved (10) Diarrhea: c diff negative may use imodium prn likely antibiotic-associated diarrhea should be self-limiting (11) Diabetic neuropathy: Was on combination of multiple agents including cymbalta, lyrica BID, nortriptyline, and ?topamax. Topamax was stopped due to kidney stones. Lyrica was continued. Cymbalta was continued. Encouraged to stop the nortriptyline due to polypharmacy, report of excessive daytime sleepiness on chronic basis, recent confusion, etc. Total Time Total Time Spent Total Time Spent (In Minutes): 60 Discharge Plan Discharge Items Patient Disposition: Home - Home Health Services Reason For Visit: Altered Mental Status; Urinary Tract Infection Discharge Diagnosis: 1. altered mental status/confusion - resolved; was due to urinary tract infection (UTI) 2. UTI - resolved 3. tiny 2mm kidney stone on left 4. diabetes 5. diabetic neuropathy 6. high blood pressure Activity: As commented below Activity Comment: gradually increase activities over the next week as tolerated Non-emergency contact: Primary Care Provider Call non-emergency contact if: you have any medication questions, your symptoms worsen, your pain is not controlled, your pain is worsening and you have a fever Follow-up/Referrals: Mer Jack DO [Primary Care Provider] - (within 5 days ) Diet: Carb Consistent or DM2 and Lactose Intolerant Diet Texture: Easy to Chew Addtl Attending Provider Instructions: Mrs Gresham, You were hospitalized for confusion. Just prior to coming to the hospital you had low blood sugar likely due to poor appetite on the day of admission as well as brewing urinary infection. Infections can cause your blood sugar to drop. We found evidence of a urinary tract infection upon arrival. We also found evidence of a very tiny kidney stone (2mm in size) in your left ureter. The stone was about to pass into your bladder. The passage of this stone may have been the cause of your urinary tract infection. You improved with IV fluids, antibiotics, and supportive care. While here we changed your blood pressure medication to help improve your blood pressure control. Recommendations - 1. Antibiotics for your UTI - * cephalexin 500mg twice daily x 5 days, first dose tomorrow morning on 08/09/22 2. Topamax (topiramate) can cause the formation of kidney stones. I would recommend discontinuing the topiramate at this time. It may also be contributing to your sleepiness at home. 3. PT/OT are recommending home therapy. We will arrange this for you. 4. For your high blood pressure please - * DISCONTINUE atenolol * CHANGE to carvedilol 6.25mg twice daily, first dose tomorrow morning on 08/09/22 5. It is likely that you already passed your kidney stone. In the event it has not yet passed please take - * tamsulosin 0.4mg every morning, first dose TOMORROW morning on 08/09/22 * this is also a blood pressure medication and it will help with blood pressure control as well 6. Please consider stopping the following medications - * nortriptyline * topiramate * evening dose of oxybutinin chloride (you can continue your morning dose of this as previous) 7. Since your lumbar spine compression fracture is giving you only minimal to mild pain please discontinue tramadol and hydrocodone as these medications can make you sleepy. Please take tylenol (acetaminophen) 1000mg every 6 hours as needed for pain, max dose 3000mg in 24 hours. 8. Excessive amounts of caffeinated beverages such as regular coffee, regular tea, dark sodas (coke, Pepsi, etc) - these can increase the risk of kidney stone formation. Please drink these beverages in moderation. The best liquid day to day is water. Please stay well-hydrated at home. Follow-up - see separate section Return to [facility] if - * you have fevers over 100 degrees * you have worsening back or abdominal pain * you have increasing shortness of breath or chest pain * you have blood in the urine or difficulty passing your urine * you have severe diarrhea * any other concerns It was my pleasure to care for you at [facility]! -Dr Metcalf Pending Studies at Discharge: No Stand-Alone Forms: My [facility], Smoking Cessation Medications and DC Order Prescriptions: New carvedilol 6.25 mg Tablet 6.25 mg PO BID Qty: 60 2RF Rx Instructions: for high blood pressure tamsulosin 0.4 mg Capsule 0.4 mg PO QAM Qty: 30 0RF Continued (DME) blood-glucose meter [OneTouch Ultra2 Meter] [facility] [place] See Rx Instructions .ROUTE .MEDSUPPLY Qty: 1 0RF Rx Instructions: Test blood sugars 4 times a day (DME) OneTouch Ultra Blue Test Strip Strip See Dose Instructions .ROUTE .MEDSUPPLY Qty: 400 3RF Rx Instructions: test 4 times daily (DME) lancets [OneTouch UltraSoft Lancets] [facility] [place] See Dose Instructions .ROUTE .MEDSUPPLY Qty: 400 3RF Dose Instruction: As directed Rx Instructions: Testing 4 times daily (DME) Wheeled Walker [facility] [place] See Rx Instructions .Route Qty: 1 0RF Rx Instructions: As directed omeprazole 40 mg capsule,delayed release(DR/EC) 40 mg PO QAM Qty: 90 1RF (DME) pen needle, diabetic [BD Ultra-Fine Araceli Pen Needle] 32 gauge x 5/32" needle See Dose Instructions .ROUTE .MEDSUPPLY Qty: 200 3RF Rx Instructions: use 2 needles daily duloxetine 60 mg capsule,delayed release(DR/EC) 60 mg PO BID Qty: 60 5RF (DME) Scooter Mis See Rx Instructions .Route Qty: 1 0RF Rx Instructions: Motorized Scooter liraglutide 0.6 mg/0.1 mL (18 mg/3 mL) pen injector 1.8 mg SUBCUT QAM Qty: 9 1RF pregabalin [Lyrica] 150 mg capsule 150 mg PO BID Qty: 60 5RF cholecalciferol (vitamin D3) 50 mcg (2,000 unit) capsule 2,000 unit PO QAM Tresiba FlexTouch U-100 100 unit/mL (3 mL) insulin pen 46 unit SUBCUT HS 30 Days Qty: 15 5RF omega 3-ecu-ppr-fish oil [Fish Oil] 1,000 mg (120 mg-180 mg) Capsule 1,000 mg PO HS aspirin 81 mg Tablet,Delayed Release (Dr/Ec) 81 mg PO HS Multi-Day Plus Minerals 18 mg iron-400 mcg-25 mcg Tablet 1 tab PO QAM oxybutynin chloride 5 mg Tablet 5 mg PO QAM acetaminophen 325 mg Tablet 650 mg PO QID Qty: 120 0RF polyethylene glycol 3350 [Miralax] 17 gram Powder In Packet 17 g PO DAILY Qty: 30 0RF docusate sodium 100 mg Capsule 100 mg PO BID PRN (Reason: constipation) Qty: 60 0RF calcitonin (salmon) 200 unit/actuation [place],Non-Aerosol 1 spray NA DAILY Qty: 3.7 0RF Discontinued nortriptyline [Pamelor] 25 mg capsule 25 mg PO HS Qty: 30 5RF topiramate [Topamax] 25 mg tablet 25 mg PO BID Qty: 60 5RF atenolol 25 mg tablet 25 mg PO QAM oxybutynin chloride 5 mg tablet 10 mg PO QPM tramadol 50 mg Tablet 50 mg PO BID PRN (Reason: moderate pain) Qty: 30 0RF hydrocodone-acetaminophen 5-325 mg tablet 1 tab PO Q6H PRN (Reason: pain) Qty: 12 0RF Discharge Orders: Discharge Order (Routine); Ordered 08/08/22 Ordered By: Kenneth Pinedo/Other Patient Handouts: Urinary Tract Infections in Women, UTIs Understanding, Understanding Kidney Stones, Preventing Kidney Stones Admission Data Admit Date/Time: 08/03/22 18:34 Attending Provider: Kenneth Metcalf Admit Provider: Kenneth Metcalf Primary Care Provider: Mer Jack Other Providers: Cheko Rodriguez ; [facility] ; [facility] Other Interventions: Discharge Summary Assessment (RN) Last Done: 08/08/22 17:04 Coding Level of Care Code HOSP INP/OBS DISCH >30 MIN Diagnoses Acute encephalopathy G93.40 UTI (urinary tract infection) N39.0 Kidney stones N20.0 Diabetes mellitus with diabetic polyneuropathy E11.42 Closed compression fracture of L1 vertebra S32.010A HTN (hypertension) I10 Hypertension type: essential hypertension GERD (gastroesophageal reflux disease) K21.9 Morbid obesity with BMI of 45.0-49.9, adult E66.01; Z68.42 Hypokalemia E87.6 Diarrhea R19.7 Diabetic neuropathy E11.40
== END 2022-08-08 18:01 | disposition home health service (06) | DRG 689 ==
LOC: ED 14:24 → EDINP 18:34 → 2N 21:31
DX: E11.649 Type 2 diabetes mellitus with hypoglycemia without coma; Z91.018 Allergy to other foods; Z88.0 Allergy status to penicillin; Z77.22 Contact with and (suspected) exposure to environmental tobacco smoke (acute) (chronic); B96.20 Unspecified Escherichia coli [E. coli] as the cause of diseases classified elsewhere; N20.1 Calculus of ureter; M19.90 Unspecified osteoarthritis, unspecified site; X58.XXXD Exposure to other specified factors, subsequent encounter; Z79.4 Long term (current) use of insulin; N39.0 Urinary tract infection, site not specified; Z88.5 Allergy status to narcotic agent; K21.9 Gastro-esophageal reflux disease without esophagitis; E11.42 Type 2 diabetes mellitus with diabetic polyneuropathy; Z79.82 Long term (current) use of aspirin; Z88.7 Allergy status to serum and vaccine; Z88.8 Allergy status to other drugs, medicaments and biological substances; G93.41 Metabolic encephalopathy; E78.1 Pure hyperglyceridemia; R19.7 Diarrhea, unspecified; Z83.3 Family history of diabetes mellitus; Z79.899 Other long term (current) drug therapy; Z68.41 Body mass index [BMI] 40.0-44.9, adult; Z88.2 Allergy status to sulfonamides; E55.9 Vitamin D deficiency, unspecified; E66.01 Morbid (severe) obesity due to excess calories; Z82.49 Family history of ischemic heart disease and other diseases of the circulatory system; E87.6 Hypokalemia; S32.010D Wedge compression fracture of first lumbar vertebra, subsequent encounter for fracture with routine healing; I10 Essential (primary) hypertension; Z20.822 Contact with and (suspected) exposure to COVID-19

== ENCOUNTER 2022-09-16 13:54 | Observation (INO) ==
[2022-09-16] MEDS ORDERED: cefTRIAXone SODIUM 2,000 MG/70 ML BAG IV STA (14:17)
[2022-09-16] MEDS ORDERED: SODIUM CHLORIDE 0.9% 500 ML IV STA (14:17)
[2022-09-16 15:24] LABS: Basophils # (auto) 0.03 K/uL (0-0.2); Basophils % (auto) 0.2 %; Eosinophils # (auto) 0.02 K/uL (0-0.50); Eosinophils % (auto) 0.1 %; Hemoglobin 14.5 g/dl (12.0-16.0); Immature Granulocytes # (auto) 0.06 K/uL (0.01-0.20); Immature Granulocytes % (auto) 0.4 %; Lymphocytes # (auto) 2.41 K/uL (1.2-3.4); Lymphocytes % (auto) 16.7 %; Mean Corpuscular Hemoglobin 30.9 pg (25.0-34.0); Mean Corpuscular Hgb Conc 33.7 g/dL (32.0-36.0); Mean Corpuscular Volume 91.5 fL (80.0-100.0); Mean Platelet Volume 11.7 fL (9.4-12.4); Monocytes % (auto) 8.3 %; Neutrophils # (auto) 10.75 K/uL (1.40-6.50); Neutrophils % (auto) 74.3 %; Platelet Count 175 K/uL (130-400); RDW Coefficient of Variation 13.1 % (11.5-14.5); RDW Standard Deviation 44.6 fL (36.4-46.3); White Blood Count 14.47 K/ul (4.8-10.8)
--- NOTE | 2022-09-16 15:41 | History & Physical Report ---
Date of Service September 16, 2022 Assessment & Plan (1) UTI (urinary tract infection): Plan: UTI with bacteremia UA infected appearing, leukocytosis of 14 Did not improve with 1 day of Cipro as outpatient Return to ER as PCR positive for E. coli blood cultures Continue Rocephin, follow cultures for speciation and sensitivities Hemodynamically stable at bedside, slightly low pressure improved with supplemental fluids No abdominal or back pain Type II DM Hold home antiglycemic's Weight-based basal bolus Baseline creatinine less than 1, - Basal 10u BID, CF 40, Ratio 14 - Goal BSG 110-140 - BSG AC/HS Hypertension Carvedilol to be resumed tomorrow morning, single dose held for mildly low blood pressure in the setting of UTI with bacteremia DVT prophylaxis: Lovenox Diet: DM Dispo: Medical/surgical CODE STATUS: Full code (2) Hyperglycemia due to type 2 diabetes mellitus: (3) HTN (hypertension): History of Present Illness Primary Care Provider: DO Joy Acuna is a 67-year-old female with a past medical history of hyperlipidemia, type II DM with nephropathy, recurrent UTIs who was diagnosed with a UTI and discharged on oral medications 09/15/2022 but returns 09/16 without clinical improvement and with interval positive blood cultures. Pt started to feel 'just really sick' yesterday. [place] warm/feverish at home. +night sweats. No chest pain, chest pressure, shortness of breath, cough, or sputum production. +intermittent headache without vision change or photo/phonosensitivity. Abdomen feels 'sick' but not painful. +burning with urination lat 24 hours. Chronic back pain from fracture Jun 2022 which improved, no worsened or changed back pain. +polyuria. Checks BSG at home, last day seem to be running Meds: Dm medications, aspirin, carvedilol, duloxetine 60mg BID Medical History: Reviewed Medications: Reviewed Surgical History: Reviewed Allergies: Reviewed Social History: No tobacco use, no alochol use. Code Status: Full Code Allergies Allergy/AdvReac Type Severity Reaction Status Date / Time tetanus toxoid, adsorbed Allergy Severe TROUBLE Verified 09/15/22 15:39 BREATHING Penicillins Allergy Intermediate ITCHINESS Verified 09/15/22 15:39 onion Allergy Unknown ? Verified 09/15/22 15:39 REACTION, ALLERGY SHOWN ON SKIN TEST orange Allergy Unknown PATCH Verified 09/15/22 15:39 TESTED HIVES REACTION atorvastatin [From Lipitor] AdvReac Intermediate Headache Verified 09/15/22 1 5:39 meperidine AdvReac Intermediate NAUSEA AND Verified 09/15/22 15:39 VOMITING metformin AdvReac Intermediate diarrhea Verified 09/15/22 15:39 morphine AdvReac Intermediate Gets wild Verified 09/15/22 15:39 and has the shakes oxycodone AdvReac Intermediate Nausea/Vomi Verified 09/15/22 15:39 ting tomato AdvReac Intermediate COUGHING Verified 09/15/22 15:39 sulfamethoxazole AdvReac Unknown Unknown Verified 09/15/22 15:39 [From Bactrim] trimethoprim [From Bactrim] AdvReac Unknown Unknown Verified 09/15/22 15:39 Home Medications Medication Instructions Recorded Confirmed Type omega 4-mum-wyl-fish oil 1,000 mg 1,000 mg PO HS 06/20/18 09/15/22 History (120 mg-180 mg) capsule (Fish Oil) OneTouch Ultra2 Meter #1 ea 09/18/20 08/13/22 Rx (blood-glucose meter) blood sugar diagnostic (OneTouch #400 ea 09/19/20 08/13/22 Rx Ultra Blue Test Strip) lancets (OneTouch UltraSoft #400 ea 09/19/20 08/13/22 Rx Lancets) cholecalciferol (vitamin D3) 50 2,000 unit PO QAM 05/15/21 09/15/22 History mcg (2,000 unit) capsule Wheeled Walker #1 ea 07/09/21 08/13/22 Rx insulin degludec 100 unit/mL (3 46 unit (0.46 mL) subcut HS 30 12/29/21 09/15/22 Rx mL) subcutaneous pen (Tresiba days #15 mL FlexTouch U-100 insulin) BD Ultra-Fine Araceli Pen Needle 32 #200 ea 03/08/22 08/13/22 Rx gauge x 5/32" (pen needle, diabetic) duloxetine 60 mg capsule,delayed 60 mg PO BID #60 caps 03/31/22 09/15/22 Rx release aspirin 81 mg tablet,delayed 81 mg PO HS 04/05/22 09/15/22 History release Scooter #1 ea 06/02/22 08/13/22 Rx liraglutide 0.6 mg/0.1 mL (18 mg/3 1.8 mg (0.3 mL) subcut QAM #9 mL 06/11/22 09/15/22 Rx mL) subcutaneous pen injector calcitonin (salmon) 200 1 spray NA DAILY #3.7 mL 07/07/22 09/15/22 Rx unit/actuation nasal spray carvedilol 6.25 mg tablet 6.25 mg PO BID #60 tabs 08/08/22 09/15/22 Rx tamsulosin 0.4 mg capsule 0.4 mg PO QAM #90 caps 09/14/22 09/15/22 Rx acetaminophen 325 mg tablet 650 mg PO QID PRN Pain 09/15/22 09/15/22 History ciprofloxacin HCl 500 mg tablet 500 mg PO Q12H #14 tabs 09/15/22 Rx (Cipro) hydrocodone 5 mg-acetaminophen 325 1 tab PO Q6H PRN Pain 09/15/22 09/15/22 History mg tablet loratadine 10 mg tablet (Claritin) 10 mg PO DAILY 09/15/22 09/15/22 History fvoeowzt-pzl-zgwdc ac 400 1 tab PO QAM 09/15/22 09/15/22 History mcg-calcium carb 500 mg-vit K1 20 mcg tablet (Women's 50 Plus Daily Formula) pregabalin 200 mg capsule (Lyrica) 200 mg PO BID 09/15/22 09/15/22 History Past Med/Surg History Medical History (Updated 09/16/22 @ 15:54 by Ian Regan MD) Acquired claw toe of left foot Acquired claw toe of right foot Acquired hallux valgus of right foot Acute alteration in mental status Acute encephalopathy Acute UTI (urinary tract infection) Anemia Chest pain Closed compression fracture of L1 vertebra Colitis Diabetes mellitus with diabetic polyneuropathy Diabetic peripheral neuropathy associated with type 2 diabetes mellitus Diverticulitis Diverticulitis GERD (gastroesophageal reflux disease) Hallux valgus (acquired), left foot History of anesthesia reaction PT STATES SHE IS SLOW TO WAKE, NO DOCUMENTED ADVERSE REACTION History of cholecystitis HTN (hypertension) Hypertriglyceridemia Kidney stones Left knee DJD Microalbuminuria Morbid obesity with BMI of 45.0-49.9, adult Nail complaint Osteoarthritis Right knee DJD RLS (restless legs syndrome) Type 2 diabetes mellitus with complication Urinary incontinence Vitamin D deficiency Surgical History History of cholecystectomy 12/28/17 History of total knee replacement R 2016, L 2017 History of total left hip arthroplasty 2007 S/P inguinal hernia repair S/P partial thyroidectomy S/P tonsillectomy S/P total hysterectomy Family History Mother Depression Diabetes Gallbladder disease Hypertension Lung cancer Alzheimer disease Father Lung cancer Bone cancer Grandmother Myocardial infarction Family/Other Breast cancer cousin Ovarian cancer Denies family history of Prostate cancer Colorectal cancer Social History Smoking Status: Never smoker Cigarettes Per Day: TRIED OCC. 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; Second Hand Exposure: Yes; Hx Alcohol Use: No Hx Substance Use: No Preferred Language: Korean Communication Ability: Effective Visual Impairment: No Limitations Hearing Ability: Normal Dry House Attendant Required: No Beliefs That Will Affect Care: None marital status: Current Living Situation: Spouse current occupational status: retired How many Children do You have: 2 Feels Safe at Home: Yes Diet Comment: regular caffeine: Yes during the past year weight has: remained stable Dental Care, Regularly: Yes Physical Activity Frequency: 1-2 Times per Week Seatbelt Use: always Sunscreen Use: No Assistive Devices: Walker Review of Systems Review of Systems: All systems reviewed & are unremarkable except as noted in HPI & below Physical Exam Physical Exam: General: A&Ox3. NAD. Cooperative. HEENT: Atraumatic, normocephalic. Vision/hearing intact, slightly [place]. PERLAA. Pulm: CTAB A&P. -wheezes, -rales, -rhonchi. Symmetrical chest rise. No increased work of breathing. No respiratory distress. Cardiac: RRR, +sm. Radial pulses intact and symmetrical. Abdominal: Nontender, nondistended, soft. BS present. Ext: 5/5 strength in arms and legs bilaterally, sensation to soft touch intact in hands an dfeet Results & Data Results & Data ([facility]) Vital Signs (Past 12 Hours) Vital Signs Temp Pulse Pulse Resp BP BP Pulse Ox 09/16/22 15:31 87 17 96/64 L 91 09/16/22 15:16 73 09/16/22 14:10 36.7 C 85 18 109/69 97 O2 Del Method 09/16/22 15:31 Room Air 09/16/22 15:16 09/16/22 14:10 Room Air PG Care Time/CCT Total # of Minutes Spent Total Time Spent with Patient: Total time spent is greater than 50% in coordination of care (as documented) at patient's floor/unit and/or counseling patient: Coding Level of Care Code 97064 INT INP/OBS CARE MIN Diagnoses UTI (urinary tract infection) N39.0 Hyperglycemia due to type 2 diabetes mellitus E11.65; Z79.4 Diabetes mellitus terminal superintendent insulin use: with terminal superintendent use HTN (hypertension) I10 Hypertension type: essential hypertension (2) Hyperglycemia due to type 2 diabetes mellitus Diabetes mellitus terminal superintendent insulin use: with shelter use Qualified Code(s): E11.65 - Type 2 diabetes mellitus with hyperglycemia; Z79.4 - terminal gauger (current) use of insulin (3) HTN (hypertension) Hypertension type: essential hypertension Qualified Code(s): I10 - Essential (primary) hypertension
--- NOTE | 2022-09-16 15:46 | XRay Report ---
SINGLE VIEW CHEST CLINICAL HISTORY: Fever FINDINGS: An AP, portable, upright chest radiograph is compared to study dated 09/15/2022 and correlat ed with chest CT dated 12/19/2018. The heart is top normal for projection. The pulmonary vasculature i s not congested. There is chronic elevation of the right hemidiaphragm and bibasilar atelectasis. No airspace consolidation or large pleural effusion is identified. No pneumothorax is seen. The skeletal structures are osteopenic. The bony thorax is grossly intact. Advanced arthritic change is seen in t he left shoulder. IMPRESSION: No acute cardiopulmonary abnormality. ACT 112: Negative or not required by law. Electronically signed by: Jv Carrasquillo M.D. 09/16/2022 3:44 PM
[2022-09-16 15:48] LABS: Albumin Level 3.7 gm/dl (3.4-5.0); BUN Creatinine Ratio 20.3 (10-20); Bilirubin,Total 0.7 mg/dl (0.2-1.0); Calcium 10.2 mg/dl (8.5-10.1); Creatinine Clr Calc Pharmacy 80.5 ml/min; Est GFR (African American) 89.8 ml/min; Est GFR (Non-African American) 77.5 ml/min; Globulin 3.7 gm/dl (2.5-4.0); Potassium 3.3 mmol/L (3.5-5.1); Total Protein 7.4 gm/dl (6.0-8.3)
--- NOTE | 2022-09-16 15:58 | Emergency Department Note ---
Impression & Plan Blood bacterial culture positive, UTI (urinary tract infection) ED Provider Note INFORMANT: Patient ED PROVIDER(S): Michael Mayer DO CHIEF COMPLAINT: Positive blood culture from UTI PLAN: Disposition: Admission Outpatient prescription management: none Discussion with: I spoke with the hospitalist, who will see the patient for admission/observation and further evaluation and consultation. MEDICAL DECISION MAKING: This is a 67-year-old female who I saw yesterday. She was diagnosed with a UTI. She was given an IV dose of cefepime prior to discharge and started on Cipro. Her blood culture was positive with a PCR showing E. coli. Urine culture is also positive. The patient was called this morning to have her come back for further evaluation and admission for IV antibiotics. She arrived this afternoon. She states that she is not feeling significantly better than yesterday. Her exam was unremarkable for any acute abnormality. She is in no distress. Her vital signs are normal. She is afebrile. She continues to have a leukocytosis but better than yesterday. Today is 14.47. Chemistry panel shows a potassium of 3.3. This is slightly low. Glucose is 211. Slightly elevated. Chest x-ray does not show acute disease. The patient was given IV R ocephin. She will be seen by the hospitalist for further evaluation and care. Triage Nursing notes reviewed. Vital Signs: reviewed Prior /Outside records reviewed: Differential diagnosis: UTI, sepsis, bacteremia, pyelonephritis, other Diagnostics, as interpreted by me: 12 lead ECG: none Cardiac Monitoring ordered: Sinus rhythm with heart rate in the 80s. Medical decision rules: none Imaging studies: Chest x-ray: Negative for acute disease. Procedures: none. Critical care: none. HPI: See MDM above. PAST MEDICAL HISTORY: See Below PAST SURGICAL HISTORY: See Below SOCIAL HISTORY: See Below HOME MEDICATIONS: See Below ALLERGIES: See Below VITALS: See Below PHYSICAL EXAMINATION: See MDM for positive findings otherwise unremarkable. CONSTITUTIONAL/VITAL SIGNS: Reviewed GENERAL:done as appropriate INTEGUMENTARY: done as appropriate HEAD: done as appropriate EYES: done as appropriate RESPIRATORY: done as appropriate CARDIOVASCULAR:done as appropriate GI/ABDOMEN:done as appropriate EXTREMITIES: done as appropriate NEUROLOGICAL: done as appropriate PSYCHIATRIC:done as appropriate MUSCULOSKELETAL:done as appropriate TRIAGE NURSING DOCUMENTATION REVIEWED. Past Med/Surg History Medical History Acquired claw toe of left foot Acquired claw toe of right foot Acquired hallux valgus of right foot Acute alteration in mental status Acute encephalopathy Acute UTI (urinary tract infection) Anemia Chest pain Closed compression fracture of L1 vertebra Colitis Diabetes mellitus with diabetic polyneuropathy Diabetic peripheral neuropathy associated with type 2 diabetes mellitus Diverticulitis Diverticulitis GERD (gastroesophageal reflux disease) Hallux valgus (acquired), left foot History of anesthesia reaction PT STATES SHE IS SLOW TO WAKE, NO DOCUMENTED ADVERSE REACTION History of cholecystitis HTN (hypertension) Hypertriglyceridemia Kidney stones Left knee DJD Microalbuminuria Morbid obesity with BMI of 45.0-49.9, adult Nail complaint Osteoarthritis Right knee DJD RLS (restless legs syndrome) Type 2 diabetes mellitus with complication Urinary incontinence Vitamin D deficiency Surgical History History of cholecystectomy 12/28/17 History of total knee replacement R 2015, L 2016 History of total left hip arthroplasty 2007 S/P inguinal hernia repair S/P partial thyroidectomy S/P tonsillectomy S/P total hysterectomy Family History Mother Depression Diabetes Gallbladder disease Hypertension Lung cancer Alzheimer disease Father Lung cancer Bone cancer Grandmother Myocardial infarction Family/Other Breast cancer cousin Ovarian cancer Denies family history of Prostate cancer Colorectal cancer Social History Smoking Status: Never smoker Cigarettes Per Day: TRIED OCC. 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; Second Hand Exposure: Yes; Hx Alcohol Use: No Hx Substance Use: No Preferred Language: [place] Communication Ability: Effective Visual Impairment: No Limitations Hearing Ability: Normal Freight Loader Required: No Beliefs That Will Affect Care: None marital status: Current Living Situation: Spouse current occupational status: retired How many Children do You have: 2 Feels Safe at Home: Yes Diet Comment: regular caffeine: Yes during the past year weight has: remained stable Dental Care, Regularly: Yes Physical Activity Frequency: 1-2 Times per Week Seatbelt Use: always Sunscreen Use: No Assistive Devices: Walker Allergies Allergies Allergy/AdvReac Type Severity Reaction Status Date / Time tetanus toxoid, adsorbed Allergy Severe TROUBLE Verified 02/15/23 15:39 BREATHING Penicillins Allergy Intermediate ITCHINESS Verified 09/15/22 15:39 onion Allergy Unknown ? Verified 09/15/22 15:39 REACTION, ALLERGY SHOWN ON SKIN TEST orange Allergy Unknown PATCH Verified 09/15/22 15:39 TESTED HIVES REACTION atorvastatin [From Lipitor] AdvReac Intermediate Headache Verified 09/15/22 15:39 meperidine AdvReac Intermediate NAUSEA AND Verified 09/15/22 15:39 VOMITING metformin AdvReac Intermediate diarrhea Verified 09/15/22 15:39 morphine AdvReac Intermediate Gets wild Verified 09/15/22 15:39 and has the shakes oxycodone AdvReac Intermediate Nausea/Vomi Verified 09/15/22 15:39 ting tomato AdvReac Intermediate COUGHING Verified 09/15/22 15:39 sulfamethoxazole AdvReac Unknown Unknown Verified 09/15/22 15:39 [From Bactrim] trimethoprim [From Bactrim] AdvReac Unknown Unknown Verified 09/15/22 15:39 Home Meds Home Medications Medication Instructions Recorded Confirmed omega 6-vwa-lon-fish oil 1,000 mg 1,000 mg PO HS 06/20/18 09/15/22 (120 mg-180 mg) capsule (Fish Oil) cholecalciferol (vitamin D3) 50 2,000 unit PO QAM 05/15/21 09/15/22 mcg (2,000 unit) capsule aspirin 81 mg tablet,delayed 81 mg PO HS 04/05/22 09/15/22 release acetaminophen 325 mg tablet 650 mg PO QID PRN Pain 09/15/22 09/15/22 hydrocodone 5 mg-acetaminophen 325 1 tab PO Q6H PRN Pain 09/15/22 09/15/22 mg tablet loratadine 10 mg tablet (Claritin) 10 mg PO DAILY 09/15/22 09/15/22 lujwovlv-tzt-fnsyr ac 400 1 tab PO QAM 09/15/22 09/15/22 mcg-calcium carb 500 mg-vit K1 20 mcg tablet (Women's 50 Plus Daily Formula) pregabalin 200 mg capsule (Lyrica) 200 mg PO BID 09/15/22 09/15/22 Previous Rx's Medication Instructions Recorded OneTouch Ultra2 Meter #1 ea 09/18/20 (blood-glucose meter) blood sugar diagnostic (OneTouch #400 ea 09/19/20 Ultra Blue Test Strip) lancets (OneTouch UltraSoft #400 ea 09/19/20 Lancets) Wheeled Walker #1 ea 07/09/21 insulin degludec 100 unit/mL (3 46 unit (0.46 mL) subcut HS 30 12/29/21 mL) subcutaneous pen (Tresiba days #15 mL FlexTouch U-100 insulin) BD Ultra-Fine Araceli Pen Needle 32 #200 ea 03/08/22 gauge x 5/32" (pen needle, diabetic) duloxetine 60 mg capsule,delayed 60 mg PO BID #60 caps 03/31/22 release Scooter #1 ea 06/02/22 liraglutide 0.6 mg/0.1 mL (18 mg/3 1.8 mg (0.3 mL) subcut QAM #9 mL 06/11/22 mL) subcutaneous pen injector calcitonin (salmon) 200 1 spray NA DAILY #3.7 mL 07/07/22 unit/actuation nasal spray carvedilol 6.25 mg tablet 6.25 mg PO BID #60 tabs 08/08/22 tamsulosin 0.4 mg capsule 0.4 mg PO QAM #90 caps 09/14/22 ciprofloxacin HCl 500 mg tablet 500 mg PO Q12H #14 tabs 09/15/22 (Cipro) Results & Data (ED) Vital Signs Vital Signs - 24 hr 09/16/22 14:10 09/16/22 15:16 09/16/22 15:31 Temperature 36.7 C Temperature Source Temporal Artery Scan Pulse Rate 85 73 Pulse Rate [Apical] 87 Respiratory Rate 18 17 Respiratory Effort / Characteristics Non-Labored Spontaneous Non-Labored Spontaneous Respiratory Depth Normal Normal Respiratory Pattern Regular Blood Pressure 109/69 Blood Pressure [Right Arm] 96/64 L Blood Pressure Mean 82 Blood Pressure Mean [Right Arm] 74 Blood Pressure Position Sitting Pulse Oximetry 97 91 Oxygen Delivery Method Room Air Room Air Sepsis Recent Fever Within 48 Hours No Sepsis New/Unexplained Change in Mental Status No Sepsis Action Taken by Nursing No Action Required Laboratory Data 09/16/22 14:50 09/16/22 14:50 Lab Results 09/16/22 09/16/22 Range/Units 14:50 14:50 WBC 14.47 H (4.8-10.8) K/ul RBC 4.70 (4.20-5.40) M/uL Hgb 14.5 (12.0-16.0) g/dl Hct 43.0 (37.0-47.0) % MCV 91.5 (80.0-100.0) fL MCH 30.9 (25.0-34.0) pg MCHC 33.7 (32.0-36.0) g/dL RDW Std Deviation 44.6 (36.4-46.3) fL RDW Coeff of [place] 13.1 (11.5-14.5) % Plt Count 175 (130-400) K/uL MPV 11.7 (9.4-12.4) fL Immature Gran % (Auto) 0.4 % Neut % (Auto) 74.3 % Lymph % (Auto) 16.7 % [place] % (Auto) 8.3 % Eos % (Auto) 0.1 % Baso % (Auto) 0.2 % Neut # (Auto) 10.75 H (1.40-6.50) K/uL Lymph # (Auto) 2.41 (1.2-3.4) K/uL [place] # (Auto) 1.20 H (0.11-0.59) K/uL Eos # (Auto) 0.02 (0-0.50) K/uL Baso # (Auto) 0.03 (0-0.2) K/uL Immature Gran # (Auto) 0.06 (0.01-0.20) K/uL Sodium 138 (136-145) mmol/L Potassium 3.3 L (3.5-5.1) mmol/L Chloride 98 (98-107) mmol/L Carbon Dioxide 35 H (21-32) mmol/L Anion Gap 5 (3-11) BUN 16 (6-23) mg/dl Creatinine 0.79 (0.6-1.2) mg/dl Est Cr Clr Drug Dosing 80.5 ml/min Est GFR ( Amer) 89.8 ml/min Est GFR (Non-Af Amer) 77.5 ml/min BUN/Creatinine Ratio 20.3 H (10-20) Glucose 211 H (70-99(Fasting)) mg/dl Calcium 10.2 H (8.5-10.1) mg/dl Total Bilirubin 0.7 (0.2-1.0) mg/dl AST 29 (13-39) U/L ALT 15 (7-52) U/L Alkaline Phosphatase 89 (34-104) U/L Total Protein 7.4 (6.0-8.3) gm/dl Albumin 3.7 (3.4-5.0) gm/dl Globulin 3.7 (2.5-4.0) gm/dl Albumin/Globulin Ratio 1.0 (0.9-2) Administered Medications Discontinued Medications Sodium Chloride (Nss) 500 mls @ 999 mls/hr IV .Q31M STA Stop: 09/16/22 14:47 Last Admin: 09/16/22 15:25 Dose: 999 mls/hr Documented By: GHULAM Ceftriaxone Sodium (Rocephin) 2,000 mg in 70 mls @ 140 mls/hr IV NOW STA Stop: 09/16/22 14:46 Last Admin: 09/16/22 15:26 Dose: 140 mls/hr Documented By: GHULAM Imaging Data Radiologist's Impression: Chest X-Ray 09/16/22 15:17 SINGLE VIEW CHEST CLINICAL HISTORY: Fever FINDINGS: An AP, portable, upright chest radiograph is compared to study dated 09/15/2022 and correlated with chest CT dated 12/19/2018. The heart is top normal for projection. The pulmonary vasculature is not congested. There is chronic elevation of the right hemidiaphragm and bibasilar atelectasis. No airspace consolidation or large pleural effusion is identified. No pneumothorax is seen. The skeletal structures are osteopenic. The bony thorax is grossly intact. Advanced arthritic change is seen in the left shoulder. IMPRESSION: No acute cardiopulmonary abnormality. ACT 112: Negative or not required by law. Electronically signed by: Jv Carrasquillo M.D. 09/16/2022 3:44 PM Discharge Plan Visit Data Chief Complaint: Referred by Doctor Stated Complaint: DR THOMAS ED Provider: Michael Mayer Discharge Problem: Blood bacterial culture positive, UTI (urinary tract infection) Patient Disposition: Being Evaluated by Hospitalist Forms Stand Alone Forms: [facility] Paperless Transaction Management Prescriptions Prescriptions: No Action (DME) blood-glucose meter [OneTouch Ultra2 Meter] Misc See Rx Instructions .ROUTE .MEDSUPPLY Qty: 1 0RF Rx Instructions: Test blood sugars 4 times a day (DME) OneTouch Ultra Blue Test Strip Strip See Dose Instructions .ROUTE .MEDSUPPLY Qty: 400 3RF Rx Instructions: test 4 times daily (DME) lancets [OneTouch UltraSoft Lancets] Mis See Dose Instructions .ROUTE .MEDSUPPLY Qty: 400 3RF Dose Instruction: As directed Rx Instructions: Testing 4 times daily (DME) Wheeled Walker Misc See Rx Instructions .Route Qty: 1 0RF Rx Instructions: As directed (DME) pen needle, diabetic [BD Ultra-Fine Araceli Pen Needle] 32 gauge x 5/32" needle See Dose Instructions .ROUTE .MEDSUPPLY Qty: 200 3RF Rx Instructions: use 2 needles daily duloxetine 60 mg capsule,delayed release(DR/EC) 60 mg PO BID Qty: 60 5RF (DME) Scooter Misc See Rx Instructions .Route Qty: 1 0RF Rx Instructions: Motorized Scooter liraglutide 0.6 mg/0.1 mL (18 mg/3 mL) pen injector 1.8 mg SUBCUT QAM Qty: 9 1RF tamsulosin 0.4 mg capsule 0.4 mg PO QAM Qty: 90 1RF cholecalciferol (vitamin D3) 50 mcg (2,000 unit) capsule 2,000 unit PO QAM Tresiba FlexTouch U-100 100 unit/mL (3 mL) insulin pen 46 unit SUBCUT HS 30 Days Qty: 15 5RF omega 5-biy-ltv-fish oil [Fish Oil] 1,000 mg (120 mg-180 mg) Capsule 1,000 mg PO HS aspirin 81 mg Tablet,Delayed Release (Dr/Ec) 81 mg PO HS calcitonin (salmon) 200 unit/actuation [place],Non-Aerosol 1 spray NA DAILY Qty: 3.7 0RF carvedilol 6.25 mg Tablet 6.25 mg PO BID Qty: 60 2RF Rx Instructions: for high blood pressure hydrocodone-acetaminophen 5-325 mg Tablet 1 tab PO Q6H PRN (Reason: Pain) loratadine [Claritin] 10 mg Tablet 10 mg PO DAILY pregabalin [Lyrica] 200 mg Capsule 200 mg PO BID Women's 50 Plus Daily Formula 400 mcg-500 mg calcium-20 mcg Tablet 1 tab PO QAM acetaminophen 325 mg tablet 650 mg PO QID PRN (Reason: Pain) ciprofloxacin HCl [Cipro] 500 mg tablet 500 mg PO Q12H Qty: 14 0RF Referrals Referrals: Mer Jack DO [Primary Care Provider] -
[2022-09-16] MEDS ORDERED: DEXTROSE 50% 50 ML SYRINGE IV PRN (15:59)
[2022-09-16] MEDS ORDERED: PHARMACY GLYCEMIC MGMT CONSULT PRN (15:59)
[2022-09-16] MEDS ORDERED: GLUCAGON FOR INJ 1 MG VIAL SQ PRN (15:59)
[2022-09-16] MEDS ORDERED: GLUCOSE 10 TAB/TUBE PO PRN (15:59)
[2022-09-16] MEDS ORDERED: CARBOHYDRATES FOR HYPOGLYCEMIA PO PRN (15:59)
[2022-09-16] MEDS ORDERED: GLUCOSE 40% GEL 15 GM TUBE PO PRN (15:59)
[2022-09-16] MEDS ORDERED: NORMOSOL-R 1,000 ML IV SCH (18:03)
[2022-09-16] MEDS: INSULIN ASPART PER UNIT SC SCH ×2 (19:12→21:20)
[2022-09-16] MEDS ORDERED: LANTUS PER UNIT CHARGE SQ SCH (21:00)
[2022-09-16] MEDS: ENOXAPARIN INJ 40 MG/0.4 ML SYR SQ SCH (21:02)
[2022-09-16] MEDS: PREGABALIN 100 MG CAP PO SCH (21:02)
[2022-09-16] MEDS: DULoxetine HCL 60 MG CAP PO SCH (21:03)
[2022-09-16] MEDS: ASPIRIN 81 MG ECTAB PO SCH (21:03)
[2022-09-16] MEDS: ACETAMINOPHEN 325 MG TAB PO PRN (21:15)
[2022-09-17 06:16] LABS: Appearance Urine Clear (Clear); Bacteria Urine Automated Negative (Negative); Bilirubin Urine Negative (Negative); Blood Urine Negative (Negative); Color Urine Yellow; Epithelial Cell Urine Auto >30 /lpf (0-5); Glucose Urine UA Negative (Negative); Ketones Urine Negative (Negative); Leukocyte Esterase Urine 1+ (Negative); Nitrite Urine Negative (Negative); Protein Urine Trace (Negative); RBC Urine Automated 0-4 /hpf (0-4); Specific Gravity Urine 1.021 (1.000-1.030); Urobilinogen Urine Negative (Negative); pH Urine 5.5 (4.5-7.5)
[2022-09-17] MEDS: DULoxetine HCL 60 MG CAP PO SCH ×2 (08:21→20:15)
[2022-09-17] MEDS: carvediloL 6.25 MG TAB PO SCH ×2 (08:21→20:15)
[2022-09-17] MEDS: TAMSULOSIN HCL 0.4 MG CAP PO SCH (08:21)
[2022-09-17] MEDS: PREGABALIN 100 MG CAP PO SCH ×2 (08:26→20:19)
[2022-09-17 08:28] LABS: Basophils # (auto) 0.03 K/uL (0-0.2); Basophils % (auto) 0.3 %; Eosinophils # (auto) 0.06 K/uL (0-0.50); Eosinophils % (auto) 0.6 %; Hematocrit (blood only) 39.6 % (37.0-47.0); Hemoglobin 13.6 g/dl (12.0-16.0); Immature Granulocytes # (auto) 0.02 K/uL (0.01-0.20); Immature Granulocytes % (auto) 0.2 %; Lymphocytes # (auto) 2.35 K/uL (1.2-3.4); Lymphocytes % (auto) 25.3 %; Mean Corpuscular Hemoglobin 31.2 pg (25.0-34.0); Mean Corpuscular Hgb Conc 34.3 g/dL (32.0-36.0); Mean Corpuscular Volume 90.8 fL (80.0-100.0); Mean Platelet Volume 11.9 fL (9.4-12.4); Monocytes % (auto) 9.7 %; Neutrophils # (auto) 5.93 K/uL (1.40-6.50); Neutrophils % (auto) 63.9 %; Platelet Count 168 K/uL (130-400); RDW Coefficient of Variation 13.1 % (11.5-14.5); RDW Standard Deviation 43.7 fL (36.4-46.3); Red Blood Count 4.36 M/uL (4.20-5.40); White Blood Count 9.29 K/ul (4.8-10.8)
--- NOTE | 2022-09-17 08:37 | Pharmacy Report ---
Pharmacy Glycemic Short Note 2 - Date of Service September 17, 2022 - Glycemic Short BSG Results (Last 24 hours): 09/16/22 09/16/22 09/16/22 14:50 18:01 20:28 Glucose 211 H POC Glucose 131 H 115 H 09/17/22 08:02 Glucose POC Glucose 135 H OUTPATIENT ANTIDIABETIC REGIMEN: * Degludec 46 units SQ qHS * Liraglutide 1.8 mg SQ qAM * A1c = 8.3% (08/05/22) ASSESSMENT: * Gia is a 67 yo diabetic admitted with UTI and bacteremia * She was recently admitted to [facility] in Aug 2022. During this stay she was well controlled on Lantus 15 units BID + Novolog CF 30/CR 10. * She received a single dose of Lantus 20 units last evening. Will start her on 15 units this morning and titrate based on BSG. * Will base Novolog parameters on previous admission data. PLAN FOR INPATIENT GLYCEMIC CONTROL: * Basal insulin * Lantus 15-20 units SQ BID * 15 units for BSG 180 or less * 20 units for BSG greater than 180 * Bolus insulin * NovoLog per scale ACHS or Q6hrs while NPO * Goal Range: Low 110 mg/dL - High 140 mg/dL * Correction Factor: 30 mg/dL/unit * Nutritional / Prandial insulin per carb ratio of 1 unit per 12 grams CHO consumed
[2022-09-17 08:39] LABS: BUN Creatinine Ratio 21.3 (10-20); Calcium 8.9 mg/dl (8.5-10.1); Creatinine Clr Calc Pharmacy 103.6 ml/min; Est GFR (African American) 108.7 ml/min; Est GFR (Non-African American) 93.8 ml/min; Potassium 3.1 mmol/L (3.5-5.1)
[2022-09-17] MEDS ORDERED: LANTUS PER UNIT CHARGE SQ SCH ×2 (09:00→21:00)
[2022-09-17] MEDS: INSULIN ASPART PER UNIT SC SCH ×4 (09:03→20:54)
[2022-09-17] MEDS: cefTRIAXone SODIUM 2,000 MG in DEXTROSE 5% 50 ML IV SCH (16:04)
[2022-09-17] MEDS ORDERED: Nursing to Pharmacy Communication SCH (17:15)
[2022-09-17] MEDS: ASPIRIN 81 MG ECTAB PO SCH (20:15)
[2022-09-17] MEDS: ENOXAPARIN INJ 40 MG/0.4 ML SYR SQ SCH (20:16)
[2022-09-18] MEDS ORDERED: POTASSIUM CHLORIDE CRTAB 20 MEQ TABCR PO STA (00:53)
--- NOTE | 2022-09-18 00:53 | Hospitalist Progress Note ---
Date of Service September 17, 2022 Assessment & Plan (1) UTI (urinary tract infection): Plan: UTI with bacteremia UA infected appearing, leukocytosis of 14 Did not improve with 1 day of Cipro as outpatient Return to ER as PCR positive for E. coli blood cultures Continue Rocephin, follow cultures for speciation and sensitivities Hemodynamically stable at bedside, slightly low pressure improved with supplemental fluids No abdominal or back pain Type II DM Hold home antiglycemic's Weight-based basal bolus Baseline creatinine less than 1, - Basal 10u BID, CF 40, Ratio 14 - Goal BSG 110-140 - BSG AC/HS Hypertension Carvedilol to be resumed tomorrow morning, single dose held for mildly low blood pressure in the setting of UTI with bacteremia DVT prophylaxis: Lovenox Diet: DM Dispo: Medical/surgical CODE STATUS: Full code Hypokalemia-replete levels and recheck levels in a.m. (2) Hyperglycemia due to type 2 diabetes mellitus: (3) HTN (hypertension): Admission and Anticipated Discharge Date Admission Date: September 16, 2022 Subjective Patient denies any acute complaints of chest pain or shortness of breath Reports feeling slightly better Physical Exam Physical Exam: Head and ENT no thyroid enlargement trachea midline Cardiovascular S1-S2 are normal no S3 Lungs bilateral air entry fair no wheezing Abdomen soft nondistended positive bowel sounds no rebound tenderness Extremity shows trace edema Neurologically no focal deficits Skin shows no rash no cyanosis Results & Data Results & Data ([facility]) Vital Signs (Past 12 Hours) Vital Signs Temp Pulse Resp BP Pulse Ox O2 Del Method 09/17/22 19:34 Room Air 09/17/22 20:12 36.7 C 85 18 168/99 H 95 Room Air 09/17/22 14:39 36.6 C 98 H 17 121/76 93 Room Air Laboratory Results Short CBC 09/17/22 Range/Units 07:33 WBC 9.29 (4.8-10.8) K/ul Hgb 13.6 (12.0-16.0) g/dl Hct 39.6 (37.0-47.0) % Plt Count 168 (130-400) K/uL BMP 09/17/22 07:33 Sodium 141 Potassium 3.1 L Chloride 101 Carbon Dioxide 34 H BUN 13 Creatinine 0.61 Glucose 141 H Calcium 8.9 Urine 09/17/22 Range/Units 05:35 Urine Color Yellow Urine Appearance Clear (Clear) Urine pH 5.5 (4.5-7.5) Ur Specific Hustler 1.021 (1.000-1.030) Urine Protein Trace H (Negative) Urine Glucose (UA) Negative (Negative) PG Care Time/CCT Total # of Minutes Spent Total Time Spent with Patient: Total time spent is greater than 50% in coordination of care (as documented) at patient's floor/unit and/or counseling patient: Coding Level of Care Code 12672 SUB INP/OBS CARE 2/35MIN Diagnoses UTI (urinary tract infection) N39.0 Hyperglycemia due to type 2 diabetes mellitus E11.65; Z79.4 Diabetes mellitus fci insulin use: with extermination supervisor use HTN (hypertension) I10 Hypertension type: essential hypertension (2) Hyperglycemia due to type 2 diabetes mellitus Diabetes mellitus extermination supervisor insulin use: with fci use Qualified Code(s): E11.65 - Type 2 diabetes mellitus with hyperglycemia; Z79.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
[2022-09-18 07:04] LABS: Hematocrit (blood only) 40.1 % (37.0-47.0); Hemoglobin 13.8 g/dl (12.0-16.0); Mean Corpuscular Hemoglobin 31.1 pg (25.0-34.0); Mean Corpuscular Hgb Conc 34.4 g/dL (32.0-36.0); Mean Corpuscular Volume 90.3 fL (80.0-100.0); Mean Platelet Volume 11.4 fL (9.4-12.4); Platelet Count 183 K/uL (130-400); RDW Coefficient of Variation 13.2 % (11.5-14.5); RDW Standard Deviation 43.8 fL (36.4-46.3); Red Blood Count 4.44 M/uL (4.20-5.40); White Blood Count 7.23 K/ul (4.8-10.8)
[2022-09-18 07:21] LABS: Calcium 9.3 mg/dl (8.5-10.1); Creatinine Clr Calc Pharmacy 126.4 ml/min; Est GFR (African American) 116.1 ml/min; Est GFR (Non-African American) 100.2 ml/min; Potassium 3.3 mmol/L (3.5-5.1)
[2022-09-18] MEDS: DULoxetine HCL 60 MG CAP PO SCH ×2 (09:35→20:40)
[2022-09-18] MEDS: PREGABALIN 100 MG CAP PO SCH ×2 (09:37→20:40)
[2022-09-18] MEDS: TAMSULOSIN HCL 0.4 MG CAP PO SCH (09:37)
[2022-09-18] MEDS: carvediloL 6.25 MG TAB PO SCH ×2 (09:38→20:40)
[2022-09-18] MEDS: INSULIN ASPART PER UNIT SC SCH ×4 (09:58→20:40)
[2022-09-18] MEDS ORDERED: LANTUS PER UNIT CHARGE SQ SCH (12:00)
[2022-09-18] MEDS: ACETAMINOPHEN 325 MG TAB PO PRN (13:59)
[2022-09-18] MEDS: cefTRIAXone SODIUM 2,000 MG in DEXTROSE 5% 50 ML IV SCH (17:06)
[2022-09-18] MEDS ORDERED: SIMETHICONE 80 MG CHEW PO PRN (17:30)
--- NOTE | 2022-09-18 18:48 | Hospitalist Progress Note ---
Date of Service September 18, 2022 Assessment & Plan (1) UTI (urinary tract infection): Plan: UTI with bacteremia UA infected appearing, leukocytosis of 14 Did not improve with 1 day of Cipro as outpatient Return to ER as PCR positive for E. coli blood cultures Continue Rocephin, follow cultures for speciation and sensitivities Hemodynamically stable at bedside, slightly low pressure improved with supplemental fluids No abdominal or back pain 09/18 - pt growing e coli earlier , will continue ceftriaxone will d/w pharmacy and microbiology to see if pt needs treated for estuardo glabrata to determine resistance Type II DM Hold home antiglycemic's Weight-based basal bolus Baseline creatinine less than 1, - Basal 10u BID, CF 40, Ratio 14 - Goal BSG 110-140 - BSG AC/HS 09/18-blood sugar running high this a.m. We will monitor blood pressure trend and titrate short acting insulin according to sliding scale Hypertension Carvedilol to be resumed tomorrow morning, single dose held for mildly low blood pressure in the setting of UTI with bacteremia DVT prophylaxis: Lovenox Diet: DM Dispo: Medical/surgical CODE STATUS: Full code Hypokalemia-replete levels and recheck levels in a.m. (2) Hyperglycemia due to type 2 diabetes mellitus: (3) HTN (hypertension): Admission and Anticipated Discharge Date Admission Date: September 16, 2022 Subjective Patient denies any acute complaints of chest pain or shortness of breath one episode of loose stools this am pt also has elevated blood sugar level this am Physical Exam Physical Exam: Head and ENT no thyroid enlargement trachea midline Cardiovascular S1-S2 are normal no S3 Lungs bilateral air entry fair no wheezing Abdomen soft nondistended positive bowel sounds no rebound tenderness Extremity shows trace edema Neurologically no focal deficits Skin shows no rash no cyanosis Results & Data Results & Data ([facility]) Vital Signs (Past 12 Hours) Vital Signs Temp Pulse Pulse Resp BP Pulse Ox O2 Del Method 09/18/22 15:41 36.8 C 64 16 148/66 H 92 Room Air 09/18/22 12:46 36.6 C 76 18 148/84 H 95 Room Air 09/18/22 08:00 Room Air 09/18/22 09:15 92 H 184/82 H 09/18/22 08:00 36.7 C 70 18 166/80 H 93 Room Air PG Care Time/CCT Total # of Minutes Spent Total Time Spent with Patient: Total time spent is greater than 50% in coordination of care (as documented) at patient's floor/unit and/or counseling patient: Coding Level of Care Code 97104 SUB INP/OBS CARE 2MIN Diagnoses UTI (urinary tract infection) N39.0 Hyperglycemia due to type 2 diabetes mellitus E11.65; Z79.4 Diabetes mellitus nursing home insulin use: with supervisor intermediates use HTN (hypertension) I10 Hypertension type: essential hypertension (2) Hyperglycemia due to type 2 diabetes mellitus Diabetes mellitus supervisor intermediates insulin use: with nursing home use Qualified Code(s): E11.65 - Type 2 diabetes mellitus with hyperglycemia; Z79.4 - 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
[2022-09-18] MEDS: ASPIRIN 81 MG ECTAB PO SCH (20:40)
[2022-09-18] MEDS: ENOXAPARIN INJ 40 MG/0.4 ML SYR SQ SCH (20:40)
[2022-09-19 06:49] LABS: BUN Creatinine Ratio 13.7 (10-20); Calcium 9.4 mg/dl (8.5-10.1); Est GFR (African American) 115.3 ml/min; Est GFR (Non-African American) 99.5 ml/min; Potassium 3.1 mmol/L (3.5-5.1)
[2022-09-19] MEDS: INSULIN ASPART PER UNIT SC SCH ×4 (09:49→20:44)
[2022-09-19] MEDS: TAMSULOSIN HCL 0.4 MG CAP PO SCH (10:00)
[2022-09-19] MEDS: carvediloL 6.25 MG TAB PO SCH ×2 (10:01→20:43)
[2022-09-19] MEDS: DULoxetine HCL 60 MG CAP PO SCH ×2 (10:01→20:40)
[2022-09-19] MEDS: PREGABALIN 100 MG CAP PO SCH ×2 (10:05→20:39)
[2022-09-19 11:16] LABS: Hematocrit (blood only) 39.1 % (37.0-47.0); Hemoglobin 13.3 g/dl (12.0-16.0); Mean Corpuscular Hemoglobin 31.4 pg (25.0-34.0); Mean Corpuscular Volume 92.2 fL (80.0-100.0); Mean Platelet Volume 11.7 fL (9.4-12.4); Platelet Count 169 K/uL (130-400); RDW Coefficient of Variation 13.2 % (11.5-14.5); RDW Standard Deviation 44.7 fL (36.4-46.3); Red Blood Count 4.24 M/uL (4.20-5.40); White Blood Count 7.26 K/ul (4.8-10.8)
--- NOTE | 2022-09-19 12:22 | Pharmacy Report ---
Pharmacy Glycemic Short Note 2 - Date of Service September 19, 2022 - Glycemic Short BSG Results (Last 24 hours): 09/18/22 09/18/22 09/19/22 17:18 20:28 05:35 Glucose 103 H POC Glucose 88 78 09/19/22 09/19/22 08:01 12:03 Glucose POC Glucose 102 H 127 H OUTPATIENT ANTIDIABETIC REGIMEN: * Degludec 46 units SQ qHS * Liraglutide 1.8 mg SQ qAM * A1c = 8.3% (08/05/22) ASSESSMENT: 09/19/22 * BSGs yesterday were 631-588-32-78 mg/dL. Patient received 41 units of insulin (30 units of basal and 11 units of bolus). * Fasting today is trending down at 102 mg/dL. Will reduce basal insulin by 25% to 22 units. Give at HS to complete transition back to home time. * Continue Novolog. This is weight-based stress of ~1. BSGs trending downwards yesterday most likely due to too much basal. BACKGROUND * Gia is a 67 yo diabetic admitted with UTI and bacteremia * She was recently admitted to [facility] in Aug 2022. During this stay she was well controlled on Lantus 15 units BID + Novolog CF 30/CR 10. * She received a single dose of Lantus 20 units last evening. Will start her on 15 units this morning and titrate based on BSG. * Will base Novolog parameters on previous admission data. PLAN FOR INPATIENT GLYCEMIC CONTROL: * Basal insulin * Lantus 22 HS * Bolus insulin * NovoLog per scale ACHS or Q6hrs while NPO * Goal Range: Low 110 mg/dL - High 140 mg/dL * Correction Factor: 30 mg/dL/unit * Nutritional / Prandial insulin per carb ratio of 1 unit per 9 grams CHO consumed
[2022-09-19] MEDS: cefTRIAXone SODIUM 2,000 MG in DEXTROSE 5% 50 ML IV SCH (15:37)
[2022-09-19] MEDS: ACETAMINOPHEN 325 MG TAB PO PRN (16:23)
--- NOTE | 2022-09-19 16:38 | Hospitalist Progress Note ---
Date of Service September 19, 2022 Assessment & Plan (1) UTI (urinary tract infection): Plan: UTI with bacteremia UA infected appearing, leukocytosis of 14 Did not improve with 1 day of Cipro as outpatient Return to ER as PCR positive for E. coli blood cultures Continue Rocephin, follow cultures for speciation and sensitivities Hemodynamically stable at bedside, slightly low pressure improved with supplemental fluids No abdominal or back pain 09/18 - pt growing e coli earlier , will continue ceftriaxone will d/w pharmacy and microbiology to see if pt needs treated for ciara glabrata to determine resistance 09/19-no further diarrhea noted Patient urine had shown Ciara glabrata-discussed with pharmacy regarding resistance And use of Diflucan versus other antifungal in this setting-consider ID connect Patient clinically improving with ceftriaxone which will be continued Blood sugars more stable today P.o. intake marginal we will restart patient on IV fluids for 24 hours Type II DM Hold home antiglycemic's Weight-based basal bolus Baseline creatinine less than 1, - Basal 10u BID, CF 40, Ratio 14 - Goal BSG 110-140 - BSG AC/HS 09/18-blood sugar running high this a.m. We will monitor blood pressure trend and titrate short acting insulin according to sliding scale Hypertension Carvedilol to be resumed tomorrow morning, single dose held for mildly low blood pressure in the setting of UTI with bacteremia DVT prophylaxis: Lovenox Diet: DM Dispo: Medical/surgical CODE STATUS: Full code Hypokalemia-replete levels and recheck levels in a.m. (2) Hyperglycemia due to type 2 diabetes mellitus: (3) HTN (hypertension): Admission and Anticipated Discharge Date Admission Date: September 16, 2022 Subjective Patient denies any acute complaints of chest pain or shortness of breath No further diarrhea reported Reports some generalized weakness P.o. intake marginal Physical Exam Physical Exam: Head and ENT no thyroid enlargement trachea midline Cardiovascular S1-S2 are normal no S3 Lungs bilateral air entry fair no wheezing Abdomen soft nondistended positive bowel sounds no rebound tenderness Extremity shows trace edema Neurologically no focal deficits Skin shows no rash no cyanosis Results & Data Results & Data ([facility]) Vital Signs (Past 12 Hours) Vital Signs Temp Pulse Pulse Resp BP Pulse Ox O2 Del Method 09/19/22 15:05 36.8 C 70 16 169/96 H 95 Room Air 09/19/22 08:00 Room Air 09/19/22 12:57 36.7 C 92 H 18 150/91 H 94 Room Air 09/19/22 09:29 96 H 127/90 09/19/22 08:15 36.8 C 84 18 168/85 H 95 Room Air Laboratory Results Short CBC 09/19/22 Range/Units 05:35 WBC 7.26 (4.8-10.8) K/ul Hgb 13.3 (12.0-16.0) g/dl Hct 39.1 (37.0-47.0) % Plt Count 169 (130-400) K/uL BMP 09/19/22 05:35 Sodium 141 Potassium 3.1 L Chloride 101 Carbon Dioxide 35 H BUN 7 Creatinine 0.51 L Glucose 103 H Calcium 9.4 PG Care Time/CCT Total # of Minutes Spent Total Time Spent with Patient: Total time spent is greater than 50% in coordination of care (as documented) at patient's floor/unit and/or counseling patient: Coding Level of Care Code 59437 SUB INP/OBS CARE 2MIN Diagnoses UTI (urinary tract infection) N39.0 Hyperglycemia due to type 2 diabetes mellitus E11.65; Z79.4 Diabetes mellitus longterm insulin use: with supervisor intermediates use HTN (hypertension) I10 Hypertension type: essential hypertension (2) Hyperglycemia due to type 2 diabetes mellitus Diabetes mellitus supervisor intermediates insulin use: with supervisor intermediates use Qualified Code(s): E11.65 - Type 2 diabetes mellitus with hyperglycemia; 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
[2022-09-19] MEDS: LACTATED RINGER'S 1,000 ML IV SCH (16:51)
[2022-09-19] MEDS ORDERED: LANTUS PER UNIT CHARGE SQ SCH (17:30)
[2022-09-19] MEDS: FLUCONAZOLE 100 MG TAB PO SCH (17:58)
[2022-09-19] MEDS: ENOXAPARIN INJ 40 MG/0.4 ML SYR SQ SCH (20:40)
[2022-09-19] MEDS: ASPIRIN 81 MG ECTAB PO SCH (20:41)
[2022-09-20] MEDS: LACTATED RINGER'S 1,000 ML IV SCH (06:33)
[2022-09-20 06:56] LABS: Hematocrit (blood only) 39.8 % (37.0-47.0); Hemoglobin 13.6 g/dl (12.0-16.0); Mean Corpuscular Hemoglobin 31.2 pg (25.0-34.0); Mean Corpuscular Hgb Conc 34.2 g/dL (32.0-36.0); Mean Corpuscular Volume 91.3 fL (80.0-100.0); Mean Platelet Volume 11.3 fL (9.4-12.4); Platelet Count 195 K/uL (130-400); RDW Coefficient of Variation 12.9 % (11.5-14.5); Red Blood Count 4.36 M/uL (4.20-5.40); White Blood Count 7.43 K/ul (4.8-10.8)
[2022-09-20 07:06] LABS: BUN Creatinine Ratio 15.1 (10-20); Calcium 9.3 mg/dl (8.5-10.1); Creatinine Clr Calc Pharmacy 119.3 ml/min; Est GFR (African American) 113.9 ml/min; Est GFR (Non-African American) 98.2 ml/min; Potassium 3.6 mmol/L (3.5-5.1)
[2022-09-20] MEDS: DULoxetine HCL 60 MG CAP PO SCH (08:54)
[2022-09-20] MEDS: carvediloL 6.25 MG TAB PO SCH (08:54)
[2022-09-20] MEDS: FLUCONAZOLE 100 MG TAB PO SCH (08:54)
[2022-09-20] MEDS: TAMSULOSIN HCL 0.4 MG CAP PO SCH (08:54)
[2022-09-20] MEDS: INSULIN ASPART PER UNIT SC SCH ×2 (08:59→12:58)
[2022-09-20] MEDS: PREGABALIN 100 MG CAP PO SCH (08:59)
--- NOTE | 2022-09-20 10:39 | Discharge Summary ---
Date of Service September 20, 2022 Admission HPI Per Admitting Provider Joy is a 67-year-old female with a past medical history of hyperlipidemia, type II DM with nephropathy, recurrent UTIs who was diagnosed with a UTI and discharged on oral medications 09/15/2022 but returns 09/16 without clinical improvement and with interval positive blood cultures. Pt started to feel 'just really sick' yesterday. [place] warm/feverish at home. +night sweats. No chest pain, chest pressure, shortness of breath, cough, or sputum production. +intermittent headache without vision change or photo/phonosensitivity. Abdomen feels 'sick' but not painful. +burning with urination lat 24 hours. Chronic back pain from fracture Jun 2022 which improved, no worsened or changed back pain. +polyuria. Checks BSG at home, last day seem to be running Meds: Dm medications, aspirin, carvedilol, duloxetine 60mg BID Medical History: Reviewed Medications: Reviewed Surgical History: Reviewed Allergies: Reviewed Social History: No tobacco use, no alochol use. Code Status: Full Code Principal Diagnosis E. coli UTI, E. coli bacteremia, hypokalemia Discharge Exam General-alert and oriented x3, no fevers, no chills. Morbidly obese HEENT-head atraumatic and normocephalic, pupils equal and reactive to light, extraocular muscles intact Neck-no lymphadenopathy or thyromegaly, trachea midline Chest-clear to auscultation percussion. No rales wheezing or rhonchi Cardiac-regular rate and rhythm, normal S1 and S2 Abdomen-normal bowel sounds, nontender, no hepatosplenomegaly Extremities-no cyanosis, clubbing, or edema Neuro-cranial nerves II through XII intact, motor and sensory function within normal limits, strength symmetrical , no focal deficits Psych-normal affect, normal mood Discharge Data Allergies Allergy/AdvReac Type Severity Reaction Status Date / Time tetanus toxoid, adsorbed Allergy Severe TROUBLE Verified 09/16/22 16:37 BREATHING Penicillins Allergy Intermediate ITCHINESS Verified 09/16/22 16:37 onion Allergy Unknown ? Verified 09/16/22 16:37 REACTION, ALLERGY SHOWN ON SKIN TEST orange Allergy Unknown PATCH Verified 09/16/22 16:37 TESTED HIVES REACTION atorvastatin [From Lipitor] AdvReac Intermediate Headache Verified 09/16/22 16 :37 meperidine AdvReac Intermediate NAUSEA AND Verified 09/16/22 16:37 VOMITING metformin AdvReac Intermediate diarrhea Verified 09/16/22 16:37 morphine AdvReac Intermediate Gets wild Verified 09/16/22 16:37 and has the shakes oxycodone AdvReac Intermediate Nausea/Vomi Verified 09/16/22 16:37 ting tomato AdvReac Intermediate COUGHING Verified 09/16/22 16:37 sulfamethoxazole AdvReac Unknown Unknown Verified 09/16/22 16:37 [From Bactrim] trimethoprim [From Bactrim] AdvReac Unknown Unknown Verified 09/16/22 16:37 Consultations 09/16/22 15:29 ED Decision to Admit Stat Hospital Course (1) UTI (urinary tract infection): UTI with bacteremia UA infected appearing, leukocytosis of 14 on admission Did not improve with 1 day of Cipro as outpatient Return to ER as PCR positive for E. coli blood cultures Continue Rocephin, E. coli is kearns-sensitive No abdominal or back pain 09/18 - pt growing e coli earlier , will continue ceftriaxone will d/w pharmacy and microbiology to see if pt needs treated for estuardo glabrata to determine resistance 09/19-no further diarrhea noted Patient urine had shown Estuardo glabrata-discussed with pharmacy regarding resistance And use of Diflucan versus other antifungal in this setting-consider ID connect Patient clinically improving with ceftriaxone which will be continued Blood sugars more stable today P.o. intake marginal we will restart patient on IV fluids for 24 hours 09/20- afebrile and stable. Switch to po keflex at discharge to complete 14 day antibiotic course Type II DM Hold home antiglycemic's on admission. Resume at discharge Weight-based basal bolus Baseline creatinine less than 1, - Basal 10u BID, CF 40, Ratio 14 - Goal BSG 110-140 - BSG AC/HS 09/18-blood sugar running high this a.m. We will monitor blood pressure trend and titrate short acting insulin according to sliding scale Hypertension Carvedilol to be resumed 09/20. Single dose held for mildly low blood pressure in the setting of UTI with bacteremia DVT prophylaxis: Lovenox Diet: DM Dispo: home today, 09/20, on po keflex for 10 more days (2) Hyperglycemia due to type 2 diabetes mellitus: ADA diet. Sliding scale coverage. Resume home meds at discharge (3) HTN (hypertension): Controlled with current medication management Plan Discharge to home today on oral antibiotics to complete 14-day course, September 20 Total Time Total Time Spent Total Time Spent (In Minutes): 35 minutes Discharge Plan Discharge Items Patient Disposition: Home - Self-Care Reason For Visit: COMPLICATED UTI Discharge Diagnosis: E. coli UTI, E. coli bacteremia, hypokalemia Activity: Resume your previous activity Non-emergency contact: Primary Care Provider Call non-emergency contact if: you have any medication questions Follow-up/Referrals: Mer Jack DO [Primary Care Provider] - Diet: Carb Consistent or DM2 and Heart Healthy Addtl Attending Provider Instructions: Take cephalexin for 10 more days Pending Studies at Discharge: No Stand-Alone Forms: My [employer], Smoking Cessation Medications and DC Order Prescriptions: New cephalexin 250 mg capsule 250 mg PO QID 10 Days Qty: 40 0RF Continued (DME) blood-glucose meter [OneTouch Ultra2 Meter] [facility] [place] See Rx Instructions .ROUTE .MEDSUPPLY Qty: 1 0RF Rx Instructions: Test blood sugars 4 times a day (DME) OneTouch Ultra Blue Test Strip Strip See Dose Instructions .ROUTE .MEDSUPPLY Qty: 400 3RF Rx Instructions: test 4 times daily (DME) lancets [OneTouch UltraSoft Lancets] [facility] [place] See Dose Instructions .ROUTE .MEDSUPPLY Qty: 400 3RF Dose Instruction: As directed Rx Instructions: Testing 4 times daily (DME) Wheeled Walker [facility] [place] See Rx Instructions .Route Qty: 1 0RF Rx Instructions: As directed (DME) pen needle, diabetic [BD Ultra-Fine Araceli Pen Needle] 32 gauge x 5/32" needle See Dose Instructions .ROUTE .MEDSUPPLY Qty: 200 3RF Rx Instructions: use 2 needles daily duloxetine 60 mg capsule,delayed release(DR/EC) 60 mg PO BID Qty: 60 5RF (DME) Scooter Misc See Rx Instructions .Route Qty: 1 0RF Rx Instructions: Motorized Scooter liraglutide 0.6 mg/0.1 mL (18 mg/3 mL) pen injector 1.8 mg SUBCUT QAM Qty: 9 1RF tamsulosin 0.4 mg capsule 0.4 mg PO QAM Qty: 90 1RF cholecalciferol (vitamin D3) 50 mcg (2,000 unit) capsule 2,000 unit PO QAM Tresiba FlexTouch U-100 100 unit/mL (3 mL) insulin pen 46 unit SUBCUT HS 30 Days Qty: 15 5RF omega 2-ekf-pce-fish oil [Fish Oil] 1,000 mg (120 mg-180 mg) Capsule 1,000 mg PO HS aspirin 81 mg Tablet,Delayed Release (Dr/Ec) 81 mg PO HS calcitonin (salmon) 200 unit/actuation [place],Non-Aerosol 1 spray NA DAILY Qty: 3.7 0RF carvedilol 6.25 mg Tablet 6.25 mg PO BID Qty: 60 2RF Rx Instructions: for high blood pressure hydrocodone-acetaminophen 5-325 mg Tablet 1 tab PO Q6H PRN (Reason: Pain) loratadine [Claritin] 10 mg Tablet 10 mg PO DAILY pregabalin [Lyrica] 200 mg Capsule 200 mg PO BID Women's 50 Plus Daily Formula 400 mcg-500 mg calcium-20 mcg Tablet 1 tab PO QAM acetaminophen 325 mg tablet 650 mg PO QID PRN (Reason: Pain) ciprofloxacin HCl [Cipro] 500 mg tablet 500 mg PO Q12H Qty: 14 0RF Rx Instructions: ORDERED 09/15/22 Discharge Orders: Discharge Order (Routine); Ordered 09/20/22 Ordered By: Grant Pinedo/Other Patient Handouts: High Blood Sugar (Hyperglycemia), Hypoglycemia (Low Blood Sugar), Managing Type 2 Diabetes, Special Foot Care for Diabetes Admission Data Admit Date/Time: 09/16/22 15:59 Attending Provider: Grant Sanchez Admit Provider: Ian Regan Primary Care Provider: Mer Jack Other Providers: Ian Regan Coding Level of Care Code HOSP INP/OBS DISCH >30 MIN Diagnoses UTI (urinary tract infection) N39.0 Hyperglycemia due to type 2 diabetes mellitus E11.65; Z79.4 Diabetes mellitus care home insulin use: with care home use HTN (hypertension) I10 Hypertension type: essential hypertension
== END 2022-09-20 14:35 | disposition home or self-care (01) ==
LOC: ED 13:54 → SUATTDRO 15:59 → INTOOBSV 15:59 → 3W 15:59

== ENCOUNTER 2022-09-26 07:02 | Observation (INO) ==
[2022-09-26] MEDS ORDERED: SODIUM CHLORIDE 0.9% 1000ML 500 ML IV ONE (07:24)
--- NOTE | 2022-09-26 07:24 | Emergency Department Note ---
Impression & Plan Generalized weakness, Fall, Hypomagnesemia, Elevated troponin, Acute hypokalemia ED Provider Note CHIEF COMPLAINT: Fall, neck pain HISTORY OF PRESENTING ILLNESS: This is a 67-year-old female who presents to the emergency department via EMS with complaint of a fall that occurred this morning. The patient was reportedly getting out of bed to go to the bathroom and slipped and fell landing forward face down. She is unsure if she hit her head, but denies loss of consciousness. The patient states she was unable to get herself up and her was unable to help her, she believes she laid on the floor for about 1 hour. She was incontinent of stool while laying on the floor. The patient was recently admitted to the hospital for treatment of urinary tract infection as well as E. coli positive blood cultures, she was discharged 09/20/2022 to home. She is on p.o. Keflex for continued antibiotic treatment. Patient reports that she has been having diarrhea and vomiting for a few days, however staff notes that her stool today was fairly solid/formed and did not appear consistent with diarrhea. The patient primarily complains of neck pain and was placed in a c-collar. She denies headache. There was no known loss of consciousness. She does take a baby aspirin, no other thinners. She rates her neck pain a 5/10. She denies any chest pain, chest tightness, shortness of breath, palpitations, dizziness or syncope. She denies any back pain. REVIEW OF SYSTEMS: A complete 10 point review of systems was reviewed with the patient with pertinent positives and negatives as per history of present illness. All else were negative. PAST MEDICAL HISTORY: Hypertension, type 2 diabetes, diabetic peripheral neuropathy, hyperlipidemia, obesity SOCIAL HISTORY: Lives at home with her , denies tobacco use ALLERGIES: Reviewed in chart and with the patient PHYSICAL EXAM: CONSTITUTIONAL: Alert, pleasant and cooperative. No acute distress. Well appearing. HEENT: Normocephalic, atraumatic. PERRL, EOMI. TMs normal, no hemotympanum. Pharynx normal. Tacky mucous membranes. NECK: Rigid c-collar in place. Tenderness to palpation of the posterior neck. No tenderness, swelling, or crepitus of the anterior neck noted. RESPIRATORY: Clear to auscultation bilaterally with no wheezing, crackles, rhonchi or stridor. Equal expansion bilaterally. CARDIOVASCULAR: Regular rate and rhythm with no murmurs, rubs or gallops. Normal peripheral perfusion. No edema. GASTROINTESTINAL: Soft, nontender, nondistended. Morbidly obese abdomen. No palpable masses or HSM. Bowel sounds present in all quadrants. MUSCULOSKELETAL: Full range of motion of all joints without discomfort. INTEGUMENTARY: No rash or other significant dermatologic conditions noted. NEUROLOGIC: Alert and oriented X 4 with normal affect. Cranial nerves II-XII grossly intact, no facial droop. No focal neurologic deficits noted. Normal strength and sensation in all 4 extremities. Normal speech. ED COURSE AND MEDICAL DECISION MAKING: CC: Patient presenting with complaint of fall, neck pain DIFFERENTIAL DIAGNOSIS: Includes, but not limited to mechanical fall, closed head injury, concussion, intracranial hemorrhage, cervical spine injury, dehydration, electrolyte imbalance, acute coronary syndrome, cardiac dysrhythmia, gastroenteritis, C. difficile infection, among others. INTERPRETATION OF LABS: No leukocytosis, no anemia, normal platelets, hypokalemia and hypomagnesemia, no other significant electrolyte abnormalities, normal renal function, normal liver enzymes. High-sensitivity troponin is mildly elevated. CK normal. UA pending. Testing for COVID/influenza/RSV are all negative. EKG: Indication was fall/weakness. Shows normal sinus rhythm with a rate of 62 bpm, occasional premature supraventricular complexes, left axis deviation, T wave flattening in the anterior and lateral leads which does not appear to be a significant change when compared to previous EKG from 09/15/2022 by my interpretation. MEDICATION RECONCILIATION: I attest that I have personally reviewed the joey t's current medication list. INITIAL VITAL SIGNS REVIEW: I reviewed the patient's initial vital signs and interpret them as follows: T: Afebrile; BP: Hypertensive; HR: Within normal limits; RR: Within normal limits; Pulse Ox: Within normal limits on room air. MDM SUMMARY: Patient was evaluated at bedside, history and physical exam performed. Patient is alert and oriented, in no acute distress, resting in the stretcher. She is neurologically intact on exam with no focal deficits. She complains of posterior neck pain and is currently in a c-collar. No other complaints and no other areas of tenderness found on exam. Cardiac monitoring: An order was placed for continuous cardiac monitoring. The monitor shows a rate of 85 bpm with normal sinus rhythm by my interpretation. EKG reviewed noting some T wave abnormalities, not significantly changed from a previous EKG, and the patient denies any complaints of chest pain or shortness of breath. Orders were placed for labs, UA, chest x-ray, CT imaging of the head and cervical spine to evaluate for trauma. 500 mL bolus IV fluids also ordered. Patient discussed with Dr. Hawk, who also evaluated the patient and agrees with my assessment, plan, and disposition. Labs and imaging reviewed, labs were notable for hypokalemia and hypomagnesemia with a mildly elevated troponin. The patient has repeatedly denied any complaints of chest pain. A repeat troponin was performed at 2 hours and was essentially unchanged. Chest x-ray was clear with no acute abnormalities noted. CT imaging was reviewed, no acute traumatic findings. CT of the cervical spine was negative for any fractures. The cervical collar was removed by myself and t he cervical spine was clinically cleared. Given the weakness and fall in the setting of electrolyte abnormalities, EKG changes and troponin elevation, I did feel that the patient warranted admission. Initial orders for IV magnesium and potassium repletion were placed. I spoke on the phone with Dr. Martinez, [facility] Hospitalist, who agreed to evaluate the patient for admission. COVID test is negative. Patient reassessed multiple times throughout ED stay, she has remained hemodynamically stable, afebrile, and neurologically intact, with no significant complaints of pain during her ED stay. The patient was updated on all results and plan for admission, she was agreeable to this plan. The patient was stable at the time of admission. The chart was completed utilizing [employer] Speech voice recognition software. Grammatical errors, random word insertions, pronoun errors, and incomplete se ntences are an occasional consequence of this system due to software limitations, ambient noise, and hardware issues. Any formal questions or concerns about the content, text, or information contained within the body of this dictation should be directly addressed to the nurse practitioner for saravanan magallanes. Past Med/Surg History Medical History (Updated 09/26/22 @ 15:45 by MED Smith) Acquired claw toe of left foot Acquired claw toe of right foot Acquired hallux valgus of right foot Acute alteration in mental status Acute encephalopathy Acute UTI (urinary tract infection) Anemia Chest pain Closed compression fracture of L1 vertebra Colitis Diabetes mellitus with diabetic polyneuropathy Diabetic peripheral neuropathy associated with type 2 diabetes mellitus Diverticulitis Diverticulitis GERD (gastroesophageal reflux disease) Hallux valgus (acquired), left foot History of anesthesia reaction PT STATES SHE IS SLOW TO WAKE, NO DOCUMENTED ADVERSE REACTION History of cholecystitis HTN (hypertension) Hypertriglyceridemia Kidney stones Left knee DJD Microalbuminuria Morbid obesity with BMI of 45.0-49.9, adult Nail complaint Osteoarthritis Right knee DJD RLS (restless legs syndrome) Type 2 diabetes mellitus with complication Urinary incontinence Vitamin D deficiency Surgical History History of cholecystectomy 12/28/17 History of total knee replacement R 2016, L 2017 History of total left hip arthroplasty 2007 S/P inguinal hernia repair S/P partial thyroidectomy S/P tonsillectomy S/P total hysterectomy Family History Mother Depression Diabetes Gallbladder disease Hypertension Lung cancer Alzheimer disease Father Lung cancer Bone cancer Grandmother Myocardial infarction Family/Other Breast cancer cousin Ovarian cancer Denies family history of Prostate cancer Colorectal cancer Social History Smoking Status: Never smoker Cigarettes Per Day: TRIED OCC. 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; Second Hand Exposure: No; Do You Dip or Chew Tobacco: No; Tobacco Cessation Education Requested by Patient: No Hx Alcohol Use: No Hx Substance Use: No Preferred Language: Finnish Communication Ability: Effective Visual Impairment: No Limitations Hearing Ability: Normal Steward/Stewardess Banquet Required: No Beliefs That Will Affect Care: None marital status: Current Living Situation: Spouse current occupational status: retired How many Children do You have: 2 Other Information That Helps Us Care for You: No Feels Safe at Home: Yes Safety Concerns: Feels Safe At This Time Diet Comment: regular caffeine: Yes during the past year weight has: remained stable Dental Care, Regularly: Yes Physical Activity Frequency: 1-2 Times per Week Seatbelt Use: always Sunscreen Use: No Assistive Devices: Walker Allergies Allergies Allergy/AdvReac Type Severity Reaction Status Date / Time tetanus toxoid, adsorbed Allergy Severe TROUBLE Verified 09/26/22 08:22 BREATHING Penicillins Allergy Intermediate ITCHINESS Verified 09/26/22 08:22 onion Allergy Unknown ? Verified 09/26/22 08:22 REACTION, ALLERGY SHOWN ON SKIN TEST orange Allergy Unknown PATCH Verified 09/26/22 08:22 TESTED HIVES REACTION atorvastatin [From Lipitor] AdvReac Intermediate Headache Verified 09/26/22 08:22 meperidine AdvReac Intermediate NAUSEA AND Verified 09/26/22 08:22 VOMITING metformin AdvReac Intermediate diarrhea Verified 09/26/22 08:22 morphine AdvReac Intermediate Gets wild Verified 09/26/22 08:22 and has the shakes oxycodone AdvReac Intermediate Nausea/Vomi Verified 09/26/22 08:22 ting tomato AdvReac Intermediate COUGHING Verified 09/26/22 08:22 sulfamethoxazole AdvReac Unknown Unknown Verified 09/26/22 08:22 [From Bactrim] trimethoprim [From Bactrim] AdvReac Unknown Unknown Verified 09/26/22 08:22 Home Meds Home Medications Medication Instructions Recorded Confirmed omega 1-cic-qig-fish oil 1,000 mg 1,000 mg PO HS 06/20/18 09/26/22 (120 mg-180 mg) capsule (Fish Oil) cholecalciferol (vitamin D3) 50 2,000 unit PO QAM 05/15/21 09/26/22 mcg (2,000 unit) capsule aspirin 81 mg tablet,delayed 81 mg PO HS 04/05/22 09/26/22 release acetaminophen 325 mg tablet 650 mg PO QID PRN Pain 09/15/22 09/26/22 loratadine 10 mg tablet (Claritin) 10 mg PO DAILY 09/15/22 09/26/22 ektacchs-vqx-hlmpo ac 400 1 tab PO QAM 09/15/22 09/26/22 mcg-calcium carb 500 mg-vit K1 20 mcg tablet (Women's 50 Plus Daily Formula) pregabalin 200 mg capsule (Lyrica) 200 mg PO BID 09/15/22 09/26/22 Previous Rx's Medication Instructions Recorded OneTouch Ultra2 Meter #1 ea 09/18/20 (blood-glucose meter) blood sugar diagnostic (OneTouch #400 ea 09/19/20 Ultra Blue Test Strip) lancets (OneTouch UltraSoft #400 ea 09/19/20 Lancets) Antolin Reynoso #1 ea 07/09/21 insulin degludec 100 unit/mL (3 46 unit (0.46 mL) subcut HS 30 12/29/21 mL) subcutaneous pen (Tresiba days #15 mL FlexTouch U-100 insulin) BD Ultra-Fine Araceli Pen Needle 32 #200 ea 03/08/22 gauge x 5/32" (pen needle, diabetic) duloxetine 60 mg capsule,delayed 60 mg PO BID #60 caps 03/31/22 release Scooter #1 ea 06/02/22 liraglutide 0.6 mg/0.1 mL (18 mg/3 1.8 mg (0.3 mL) subcut QAM #9 mL 06/11/22 mL) subcutaneous pen injector calcitonin (salmon) 200 1 spray NA DAILY #3.7 mL 07/07/22 unit/actuation nasal spray carvedilol 6.25 mg tablet 6.25 mg PO BID #60 tabs 08/08/22 tamsulosin 0.4 mg capsule 0.4 mg PO QAM #90 caps 09/14/22 cephalexin 250 mg capsule 250 mg PO QID 10 days #40 caps 09/20/22 Results & Data (ED) Vital Signs Vital Signs - 24 hr 09/26/22 07:08 09/26/22 07:33 09/26/22 07:33 Temperature 36.9 C 36.7 C Temperature Source Oral Oral Pulse Rate 85 69 Pulse Rate from SpO2 Sensor Pulse Rhythm Regular Respiratory Rate 20 18 18 Respiratory Effort / Characteristics Non-Labored Spontaneous Non-Labored Respiratory Depth Normal Normal Respiratory Pattern Regular Blood Pressure 191/89 H Blood Pressure Mean 123 Pulse Oximetry 92 93 93 Oxygen Delivery Method Room Air Room Air Room Air Sepsis New/Unexplained Change in Mental Status N/A Sepsis Action Taken by Nursing No Action Required 09/26/22 08:14 09/26/22 09:30 09/26/22 10:00 Temperature Temperature Source Pulse Rate 79 86 95 H Pulse Rate from SpO2 Sensor 74 Pulse Rhythm Respiratory Rate 21 12 Respiratory Effort / Characteristics Respiratory Depth Respiratory Pattern Blood Pressure 134/79 Blood Pressure Mean 97 Pulse Oximetry 94 93 Oxygen Delivery Method Room Air Room Air Sepsis New/Unexplained Change in Mental Status Sepsis Action Taken by Nursing Laboratory Data 09/26/22 07:38 09/26/22 07:38 Lab Results 09/26/22 09/26/22 09/26/22 Range/Units 07:38 07:38 07:38 WBC 8.90 (4.8-10.8) K/ul RBC 4.81 (4.20-5.40) M/uL Hgb 14.8 (12.0-16.0) g/dl Hct 43.0 (37.0-47.0) % MCV 89.4 (80.0-100.0) fL MCH 30.8 (25.0-34.0) pg MCHC 34.4 (32.0-36.0) g/dL RDW Std Deviation 43.3 (36.4-46.3) fL RDW Coeff of Charly 13.2 (11.5-14.5) % Plt Count 221 (130-400) K/uL MPV 11.5 (9.4-12.4) fL Immature Gran % (Auto) 0.3 % Neut % (Auto) 78.5 % Lymph % (Auto) 15.8 % [place] % (Auto) 5.3 % Eos % (Auto) 0.0 % Baso % (Auto) 0.1 % Neut # (Auto) 6.98 H (1.40-6.50) K/uL Lymph # (Auto) 1.41 (1.2-3.4) K/uL [place] # (Auto) 0.47 (0.11-0.59) K/uL Eos # (Auto) 0.00 (0-0.50) K/uL Baso # (Auto) 0.01 (0-0.2) K/uL Immature Gran # (Auto) 0.03 (0.01-0.20) K/uL Sodium 137 (136-145) mmol/L Potassium 2.9 L (3.5-5.1) mmol/L Chloride 98 (98-107) mmol/L Carbon Dioxide 33 H (21-32) mmol/L Anion Gap 6 (3-11) BUN 10 (6-23) mg/dl Creatinine 0.49 L (0.6-1.2) mg/dl Est Cr Clr Drug Dosing 118.9 ml/min Est GFR ( Amer) 116.8 ml/min Est GFR (Non-Af Amer) 100.8 ml/min BUN/Creatinine Ratio 20.4 H (10-20) Glucose 167 H (70-99(Fasting)) mg/dl Calcium 8.9 (8.5-10.1) mg/dl Magnesium 1.6 L (1.7-2.4) mg/dl Total Bilirubin 0.8 (0.2-1.0) mg/dl AST 23 (13-39) U/L ALT 16 (7-52) U/L Alkaline Phosphatase 71 (34-104) U/L Total Creatine Kinase 30 (26-192) U/L Troponin I High Sens 21.9 H (0-14) pg/ml Total Protein 7.0 (6.0-8.3) gm/dl Albumin 3.7 (3.4-5.0) gm/dl Globulin 3.3 (2.5-4.0) gm/dl Albumin/Globulin Ratio 1.1 (0.9-2) SARS-CoV-2 (PCR) NEGATIVE (Negative) Influenza Type A (PCR) Negative (Neg) Influenza Type B (PCR) Negative (Neg) RSV (RT-PCR) Negative (Neg) 09/26/22 Range/Units 09:49 WBC (4.8-10.8) K/ul RBC (4.20-5.40) M/uL Hgb (12.0-16.0) g/dl Hct (37.0-47.0) % MCV (80.0-100.0) fL MCH (25.0-34.0) pg MCHC (32.0-36.0) g/dL RDW Std Deviation (36.4-46.3) fL RDW Coeff of Charly (11.5-14.5) % Plt Count (130-400) K/uL MPV (9.4-12.4) fL Immature Gran % (Auto) % Neut % (Auto) % Lymph % (Auto) % [place] % (Auto) % Eos % (Auto) % Baso % (Auto) % Neut # (Auto) (1.40-6.50) K/uL Lymph # (Auto) (1.2-3.4) K/uL [place] # (Auto) (0.11-0.59) K/uL Eos # (Auto) (0-0.50) K/uL Baso # (Auto) (0-0.2) K/uL Immature Gran # (Auto) (0.01-0.20) K/uL Sodium (136-145) mmol/L Potassium (3.5-5.1) mmol/L Chloride (98-107) mmol/L Carbon Dioxide (21-32) mmol/L Anion Gap (3-11) BUN (6-23) mg/dl Creatinine (0.6-1.2) mg/dl Est Cr Clr Drug Dosing ml/min Est GFR ( Amer) ml/min Est GFR (Non-Af Amer) ml/min BUN/Creatinine Ratio (10-20) Glucose (70-99(Fasting)) mg/dl Calcium (8.5-10.1) mg/dl Magnesium (1.7-2.4) mg/dl Total Bilirubin (0.2-1.0) mg/dl AST (13-39) U/L ALT (7-52) U/L Alkaline Phosphatase (34-104) U/L Total Creatine Kinase (26-192) U/L Troponin I High Sens 20.1 H (0-14) pg/ml Total Protein (6.0-8.3) gm/dl Albumin (3.4-5.0) gm/dl Globulin (2.5-4.0) gm/dl Albumin/Globulin Ratio (0.9-2) SARS-CoV-2 (PCR) (Negative) Influenza Type A (PCR) (Neg) Influenza Type B (PCR) (Neg) RSV (RT-PCR) (Neg) Administered Medications Carvedilol (Carvedilol 6.25 Mg Tab) 6.25 mg PO BID TEZ Stop: 10/26/22 11:50 Last Admin: 09/26/22 12:31 Dose: 6.25 mg Documented By: [facility] Cephalexin HCl (Cephalexin 250 Mg Cap) 250 mg PO QID TEZ Stop: 09/29/22 12:59 Last Admin: 09/26/22 12:31 Dose: 250 mg Documented By: [facility] Enoxaparin Sodium (Enoxaparin Inj 40 Mg/0.4 Ml Syr) 40 mg SQ Q12H TEZ Stop: 10/26/22 11:50 Last Admin: 09/26/22 12:33 Dose: 40 mg Documented By: [facility] Magnesium Sulfate/Dextrose (Magnesium Sulfate / D5w) 1 gm in 100 mls @ 50 mls/hr IV Q2H TEZ Stop: 09/26/22 15:50 Last Admin: 09/26/22 15:16 Dose: 50 mls/hr Documented By: Infusion: 09/26/22 15:16 Dose: 0 mls/hr Documented By: Infusion: 09/26/22 14:06 Dose: 50 mls/hr Documented By: Infusion: 09/26/22 13:51 Dose: 0 mls/hr Documented By: Admin: 09/26/22 13:00 Dose: 50 mls/hr Documented By: NAVARRO Insulin Aspart (Insulin Aspart Per Unit) 0 units SC ACHS TEZ Stop: 10/26/22 11:29 Last Admin: 09/26/22 12:30 Dose: 3 units Documented By: NAVARRO Co-signed By: MARIYA Pregabalin (Pregabalin 100 Mg Cap) 200 mg PO BID TEZ Stop: 10/26/22 11:50 Last Admin: 09/26/22 12:50 Dose: 200 mg Documented By: [facility] Tamsulosin HCl (Tamsulosin Hcl 0.4 Mg Cap) 0.4 mg PO QAM TEZ Stop: 10/26/22 11:50 Last Admin: 09/26/22 12:30 Dose: 0.4 mg Documented By: NAVARRO Discontinued Medications Acetaminophen (Acetaminophen 325 Mg Tab) 650 mg PO NOW STA Stop: 09/26/22 10:43 Last Admin: 09/26/22 10:55 Dose: 650 mg Documented By: Co-signed By: GHULAM Acetaminophen (Acetaminophen 325 Mg Tab) Confirm Administered Dose 650 mg .ROUTE .STK-MED ONE Stop: 09/26/22 10:53 Last Admin: 09/26/22 10:57 Dose: Not Given Documented By: GHULAM Sodium Chloride (Nss 1000ml) 500 mls @ 999 mls/hr IV .Q31M ONE Stop: 09/26/22 07:54 Last Infusion: 09/26/22 09:52 Dose: 0 mls/hr Documented By: Admin: 09/26/22 08:10 Dose: 999 mls/hr Documented By: GHULAM Potassium Chloride (K Blade / Wtr) 10 meq in 100 mls @ 100 mls/hr IV Q1H TEZ; Protocol Stop: 09/26/22 11:29 Last Infusion: 09/26/22 11:55 Dose: 0 mls/hr Documented By: Admin: 09/26/22 10:56 Dose: 100 mls/hr Documented By: Infusion: 09/26/22 10:52 Dose: 100 mls/hr Documented By: Admin: 09/26/22 09:52 Dose: 100 mls/hr Documented By: GHULAM Magnesium Sulfate/Dextrose (Magnesium Sulfate / D5w) 1 gm in 100 mls @ 100 mls/hr IV NOW STA Stop: 09/26/22 10:37 Last Infusion: 09/26/22 11:54 Dose: 0 mls/hr Documented By: Admin: 09/26/22 09:52 Dose: 100 mls/hr Documented By: GHULAM Potassium Chloride (Potassium Chloride Crtab 20 Meq Tabcr) 40 meq PO Q2H TEZ Stop: 09/26/22 12:46 Last Admin: 09/26/22 14:08 Dose: 40 meq Documented By: Admin: 09/26/22 12:29 Dose: 40 meq Documented By: [facility] Imaging Data Radiologist's Impression: Chest X-Ray 09/26/22 07:20 XR chest 1V portable CLINICAL HISTORY: fall COMPARISON STUDY: Chest radiograph September 16, 2022. Chest CT December 19, 2018. FINDINGS: Osteoarthritis of the glenohumeral joint is incidentally noted. Lungs are clear. There is no pneumothorax or pleural effusion. Cardiac size is normal. Mediastinal contours are normal. There is no evidence for pulmonary edema. IMPRESSION: No acute cardiopulmonary findings. No change in appearance of the chest. ACT 112: Negative or not required by law. Electronically signed by: Sylvain Lane M.D. 09/26/2022 7:[address] 09/26/22 07:[address] DOSE: 1264.32 mGy.cm HISTORY: fall, hit head TECHNIQUE: Multiaxial CT images of the cervical spine were performed and reformatted in the sagittal and coronal plane without the use of contrast. A dose lowering technique was utilized adhering to the principles of ALARA. COMPARISON: None. FINDINGS: No fractures. No subluxation. Prevertebral soft tissues and the C1-C2 interval are intact. No pneumothorax. There is again noted ossification of the posterior longitudinal ligament resulting in severe central canal narrowing at the C2-C3 levels. This is not significantly changed. IMPRESSION: 1. No fractures within the cervical spine. 2. Ossification of posterior longitudinal ligament again noted resulting in severe central canal narrowing at the C2-C3 levels. This is not significantly changed. ACT 112: Negative or not required by law. Electronically signed by: Florencio Max M.D. 09/26/2022 8:[address] 09/26/22 07:21 CT OF THE HEAD WITHOUT CONTRAST CLINICAL HISTORY: fall, hit head COMPARISON STUDY: Head CT August 03, 2022. TECHNIQUE: Helical axial images of the head were obtained without IV contrast. Automated exposure control was utilized for the study. A dose lowering technique was utilized adhering to the principles of ALARA. FINDINGS: No acute intracranial hemorrhage, midline shift or mass effect is present. The ventricular system is stable. The basal cisterns are patent. No extra-axial collections are present. There are no findings to suggest acute dural sinus thrombosis or acute territorial infarct. No significant calvarial abnormalities are present. Visualized portions of the sinuses and mastoid air cells are clear. IMPRESSION: 1. No acute intracranial findings. No change in appearance of the brain. 2. No calvarial fracture. ACT 112: Negative or not required by law. Electronically signed by: Sylvain Lane M.D. 09/26/2022 8:09 AM Discharge Plan Visit Data Chief Complaint: Fall ED Provider: Jv Hawk ED Midlevel Provider: Cecy Ly Discharge Problem: Generalized weakness, Fall, Hypomagnesemia, Elevated troponin, Acute hypokalemia Patient Disposition: Admitted As Inpatient Condition: Good Discharge Instructions Interventions: ED Discharge Assessment Last Done: 09/26/22 11:09
--- NOTE | 2022-09-26 07:43 | XRay Report ---
XR chest 1V portable CLINICAL HISTORY: fall COMPARISON STUDY: Chest radiograph September 16, 2022. Chest CT December 19, 2018. FINDINGS: Osteoarthritis of the glenohumeral joint is incidentally noted. Lungs are clear. There is n o pneumothorax or pleural effusion. Cardiac size is normal. Mediastinal contours are normal. There is no evidence for pulmonary edema. IMPRESSION: No acute cardiopulmonary findings. No change in appearance of the chest. ACT 112: Negative or not required by law. Electronically signed by: Sylvain Lane M.D. 09/26/2022 7:42 AM
[2022-09-26 08:00] LABS: Basophils # (auto) 0.01 K/uL (0-0.2); Basophils % (auto) 0.1 %; Hemoglobin 14.8 g/dl (12.0-16.0); Immature Granulocytes # (auto) 0.03 K/uL (0.01-0.20); Immature Granulocytes % (auto) 0.3 %; Lymphocytes # (auto) 1.41 K/uL (1.2-3.4); Lymphocytes % (auto) 15.8 %; Mean Corpuscular Hemoglobin 30.8 pg (25.0-34.0); Mean Corpuscular Hgb Conc 34.4 g/dL (32.0-36.0); Mean Corpuscular Volume 89.4 fL (80.0-100.0); Mean Platelet Volume 11.5 fL (9.4-12.4); Monocytes # (auto) 0.47 K/uL (0.11-0.59); Monocytes % (auto) 5.3 %; Neutrophils # (auto) 6.98 K/uL (1.40-6.50); Neutrophils % (auto) 78.5 %; Platelet Count 221 K/uL (130-400); RDW Coefficient of Variation 13.2 % (11.5-14.5); RDW Standard Deviation 43.3 fL (36.4-46.3); Red Blood Count 4.81 M/uL (4.20-5.40)
--- NOTE | 2022-09-26 08:10 | CT Scan Report ---
CT OF THE HEAD WITHOUT CONTRAST CLINICAL HISTORY: fall, hit head COMPARISON STUDY: Head CT August 03, 2022. TECHNIQUE: Helical axial images of the head were obtained without IV contrast. Automated exposure con trol was utilized for the study. A dose lowering technique was utilized adhering to the principles o f ALARA. FINDINGS: No acute intracranial hemorrhage, midline shift or mass effect is present. The ventricular system is stable. The basal cisterns are patent. No extra-axial collections are present. There are no findings to suggest acute dural sinus thrombosis or acute territorial infarct. No significant calvar ial abnormalities are present. Visualized portions of the sinuses and mastoid air cells are clear. IMPRESSION: 1. No acute intracranial findings. No change in appearance of the brain. 2. No calvarial fracture. ACT 112: Negative or not required by law. Electronically signed by: Sylvain Lane M.D. 09/26/2022 8:09 AM
--- NOTE | 2022-09-26 08:14 | CT Scan Report ---
CERVICAL SPINE CT CT DOSE: 1264.32 mGy.cm HISTORY: fall, hit head TECHNIQUE: Multiaxial CT images of the cervical spine were performed and reformatted in the sagittal and coronal plane without the use of contrast. A dose lowering technique was utilized adhering to th e principles of ALARA. COMPARISON: None. FINDINGS: No fractures. No subluxation. Prevertebral soft tissues and the C1-C2 interval are intact. No pneumothorax. There is again noted ossification of the posterior longitudinal ligament resulting i n severe central canal narrowing at the C2-C3 levels. This is not significantly changed. IMPRESSION: 1. No fractures within the cervical spine. 2. Ossification of posterior longitudinal ligament again noted resulting in severe central canal narr owing at the C2-C3 levels. This is not significantly changed. ACT 112: Negative or not required by law. Electronically signed by: Florencio Max M.D. 09/26/2022 8:13 AM
[2022-09-26 08:16] LABS: Albumin Globulin Ratio 1.1 (0.9-2); Albumin Level 3.7 gm/dl (3.4-5.0); BUN Creatinine Ratio 20.4 (10-20); Bilirubin,Total 0.8 mg/dl (0.2-1.0); Calcium 8.9 mg/dl (8.5-10.1); Creatinine Clr Calc Pharmacy 118.9 ml/min; Est GFR (African American) 116.8 ml/min; Est GFR (Non-African American) 100.8 ml/min; Globulin 3.3 gm/dl (2.5-4.0); Potassium 2.9 mmol/L (3.5-5.1)
[2022-09-26 08:19] LABS: Troponin I High Sensitivity 21.9 pg/ml (0-14)
[2022-09-26 09:20] LABS: Influenza A virus by PCR Negative (Neg); Influenza B virus by PCR Negative (Neg); RSV by PCR Negative (Neg); SARS CoV2 RNA(COVID-19) Ceph NEGATIVE (Negative)
[2022-09-26 09:28] LABS: Magnesium 1.6 mg/dl (1.7-2.4)
[2022-09-26] MEDS ORDERED: MAGNESIUM SULFATE / D5W 1 GM/100 ML BAG IV STA (09:38)
[2022-09-26] MEDS: POTASSIUM CHLORIDE / WTR 10 MEQ/100 ML PLCT IV SCH ×2 (09:52→10:56)
[2022-09-26] MEDS ORDERED: GLUCOSE 40% GEL 15 GM TUBE PO PRN (10:19)
[2022-09-26] MEDS ORDERED: CARBOHYDRATES FOR HYPOGLYCEMIA PO PRN (10:19)
[2022-09-26] MEDS ORDERED: DEXTROSE 50% 50 ML SYRINGE IV PRN (10:19)
[2022-09-26] MEDS ORDERED: GLUCAGON FOR INJ 1 MG VIAL SQ PRN (10:19)
[2022-09-26] MEDS ORDERED: GLUCOSE 10 TAB/TUBE PO PRN (10:19)
--- NOTE | 2022-09-26 10:20 | History & Physical Report ---
Date of Service September 26, 2022 Assessment & Plan (1) Fall: Plan: -Admit to med/tele -The patient is currently afebrile, hemodynamically stable, and stable on RA -The patient sustained a mechanical fall this am while trying to get out of bed, her initial trauma workup including head CT, chest xray, and cervical spine CT were negative for acute trauma -The patient does have lumbar spine pain, will obtain xray of the lumbar spine now -No focal neuro defects or acute trauma on exam, PT/OT consults placed -Her generalized weakness is likely multifactorial including currently low mag and potassium levels as well as deconditioning from her recent admission -Fall precautions ordered -BL SCD's and Sub-Q lovenox for DVT PPX -AM CBC, BMP, and mag (2) Hypokalemia: Plan: -Found to be 2.9 today with a mag of 1.6 -Likely due to poor oral intake, diarrhea, and vomiting -The patient does have T-wave flattening in the lateral leads with prematura supraventricular complexes but is asymptomatic -S/P 1 gm IV mag and 2 doses of 10 meq IV KCL in the ED -Will give her an additional 2gm IV mag and 40 meq PO KCL x 2 -Will repeat her potassium level later today -Continue to monitor on tele (3) Hypomagnesemia: Plan: -See hypokalemia (4) Elevated troponin: Plan: -Initial high sensitivity trop elevated at 21 with repeat 2 hour at 20 -Patient is asymptomatic -Continue to monitor on tele for now (5) Diarrhea: Plan: -Patient has been experiencing 3+ episodes of non-bloody diarrhea daily since discharge, has been on antibiotics -Will obtain stool studies and c. diff toxin screen for further evaluation -Hold antidiarrheals until infectious etiology is ruled out (6) UTI (urinary tract infection): Plan: -Patient was recently admitted for e.coli UTI and bacteremia -Was treated with Ceftriaxone in the hospital with discharge on Keflex -Urine cultures from last admission showing sensitivity to Keflex, will continue with an end date of 09/29/22 -Patient still experiencing dysuria today, will repeat UA to ensure she is being adequately treated (7) HTN (hypertension): Plan: -Now stable -Continue Carvedilol (8) Hyperlipidemia associated with type 2 diabetes mellitus: Plan: -Patient not currently on a Statin, will get an AM lipid panel -Will monitor BSG ACHS, goal is 110-140 -Will start with 8 units lantus BID, correction factor of 50 with carb ratio of 15 -DMII diet (9) CAD (coronary artery disease): Plan: -Continue aspirin Plan The patiient was discussed with Dr. Martinez at the time of the amdission History of Present Illness Chief Complaint: Mechanical fall Primary Care Provider: Mer Jack DO Hamilton is a 67-year-old female with a past medical history of hyperlipidemia, type II DM with nephropathy, severe cervical spinal stenosis, and recurrent UTIs who presented to the [facility] ED on 09/26/22 with a chief complaint of a fall out of bed this am. In the ED the patient was found to be afebrile, hypertensive at 191/89, and stable on RA. Labs were remarkable for a CBC WNL, stable cr at 0.49, potassium of 2.9 with a magnesium level of 1.6, otherwise stable electrolytes, LFTs WNL, initial high sensitivity trop of 21.9, Covid/Influenza/RSV negative. Chest xray was read as No acute cardiopulmonary findings. No change in appearance of the chest.. Ct of the cervical spine was read as 1. No fractures within the cervical spine. 2. Ossification of posterior longitudinal ligament again noted resulting in severe central canal narrowing at the C2-C3 levels. This is not significantly changed.. CT of the head was read as 1. No acute intracranial findings. No change in appearance of the brain. 2. No calvarial fracture.. Prior to admission the patient was given a 500mL NSS bolus, 1 mg IV magnesium and 2 bags of 10 meq PO KCl. Per chart review, the patient was recently admitted to [facility] from 09/16/22- 09/20/22 for failed outpatient treatment of a UTI and e.coli bacteremia. While in the ED the patient was initially treated with Ceftriaxone. Prior to discharge home she was transitioned to PO Keflex as her urine culture showed sensitivity. AT the time of the exam the patient was lying in bed in no acute distress with her sitting bedside. She states that since her discharge on 09/20 she has experienced approximately 3 episodes of non-bloody diarrhea daily. This am she woke and tried to get out of bed but fell due to generalized weakness in her BL LE's. She landed on her forehead but denies losing consciousness. She was unable to get herself up and her was unable to get her up so EMS was called. She currently denies head pain, neck and thoracic spine pain, chest pain, SOB, abdominal pain, hematuria, melena, bloody BM's, saddle anesthesia, unilateral LE weakness, as-well-as LE numbness or paresthesias. She does not some lumbar back pain since her fall, as-well-as nausea with non-bloody emesis this am and dysuria. She is in agreement with evaluation by physial and occupational therapy while admitted as she may need inpatient rehab on discharge. She wishes to be a Full Code, her son would make medical decisions for her if she could not make them herself. Please refer to Dr. Nowak's attestation for any changes to the treatment plan Allergies Allergy/AdvReac Type Severity Reaction Status Date / Time tetanus toxoid, adsorbed Allergy Severe TROUBLE Verified 09/26/22 08:22 BREATHING Penicillins Allergy Intermediate ITCHINESS Verified 09/26/22 08:22 onion Allergy Unknown ? Verified 09/26/22 08:22 REACTION, ALLERGY SHOWN ON SKIN TEST orange Allergy Unknown PATCH Verified 09/26/22 08:22 TESTED HIVES REACTION atorvastatin [From Lipitor] AdvReac Intermediate Headache Verified 09/26/22 08:22 meperidine AdvReac Intermediate NAUSEA AND Verified 09/26/22 08:22 VOMITING metformin AdvReac Intermediate diarrhea Verified 09/26/22 08:22 morphine AdvReac Intermediate Gets wild Verified 09/26/22 08:22 and has the shakes oxycodone AdvReac Intermediate Nausea/Vomi Verified 09/26/22 08:22 ting tomato AdvReac Intermediate COUGHING Verified 09/26/22 08:22 sulfamethoxazole AdvReac Unknown Unknown Verified 09/26/22 08:22 [From Bactrim] trimethoprim [From Bactrim] AdvReac Unknown Unknown Verified 09/26/22 08:22 Home Medications Medication Instructions Recorded Confirmed Type omega 4-sjr-cpp-fish oil 1,000 mg 1,000 mg PO HS 06/20/18 09/26/22 History (120 mg-180 mg) capsule (Fish Oil) Trinity-NobleTouch Ultra2 Meter #1 ea 09/18/20 08/13/22 Rx (blood-glucose meter) blood sugar diagnostic (OneTouch #400 ea 09/19/20 08/13/22 Rx Ultra Blue Test Strip) lancets (OneTouch UltraSoft #400 ea 09/19/20 08/13/22 Rx Lancets) cholecalciferol (vitamin D3) 50 2,000 unit PO QAM 05/15/21 09/26/22 History mcg (2,000 unit) capsule Wheeled Walker #1 ea 07/09/21 08/13/22 Rx insulin degludec 100 unit/mL (3 46 unit (0.46 mL) subcut HS 30 12/29/21 09/26/22 Rx mL) subcutaneous pen ( #15 mL FlexTouch U-100 insulin) BD Ultra-Fine Araceli Pen Needle 32 #200 ea 03/08/22 08/13/22 Rx gauge x 5/32" (pen needle, diabetic) duloxetine 60 mg capsule,delayed 60 mg PO BID #60 caps 03/31/22 09/26/22 Rx release aspirin 81 mg tablet,delayed 81 mg PO HS 04/05/22 09/26/22 History release Scooter #1 ea 06/02/22 08/13/22 Rx liraglutide 0.6 mg/0.1 mL (18 mg/3 1.8 mg (0.3 mL) subcut QAM #9 mL 06/11/22 09/26/22 Rx mL) subcutaneous pen injector calcitonin (salmon) 200 1 spray NA DAILY #3.7 mL 07/07/22 09/26/22 Rx unit/actuation nasal spray carvedilol 6.25 mg tablet 6.25 mg PO BID #60 tabs 08/08/22 09/26/22 Rx tamsulosin 0.4 mg capsule 0.4 mg PO QAM #90 caps 09/14/22 09/26/22 Rx acetaminophen 325 mg tablet 650 mg PO QID PRN Pain 09/15/22 09/26/22 History loratadine 10 mg tablet (Claritin) 10 mg PO DAILY 09/15/22 09/26/22 History pyprzipg-kng-cdurh ac 400 1 tab PO QAM 09/15/22 09/26/22 History mcg-calcium carb 500 mg-vit K1 20 mcg tablet (Women's 50 Plus Daily Formula) pregabalin 200 mg capsule (Lyrica) 200 mg PO BID 09/15/22 09/26/22 History cephalexin 250 mg capsule 250 mg PO QID 10 days #40 caps 09/20/22 09/26/22 Rx Past Med/Surg History Medical History (Updated 09/26/22 @ 11:06 by Michael Silva PA-C) Acquired claw toe of left foot Acquired claw toe of right foot Acquired hallux valgus of right foot Acute alteration in mental status Acute encephalopathy Acute UTI (urinary tract infection) Anemia Chest pain Closed compression fracture of L1 vertebra Colitis Diabetes mellitus with diabetic polyneuropathy Diabetic peripheral neuropathy associated with type 2 diabetes mellitus Diverticulitis Diverticulitis GERD (gastroesophageal reflux disease) Hallux valgus (acquired), left foot History of anesthesia reaction PT STATES SHE IS SLOW TO WAKE, NO DOCUMENTED ADVERSE REACTION History of cholecystitis HTN (hypertension) Hypertriglyceridemia Kidney stones Left knee DJD Microalbuminuria Morbid obesity with BMI of 45.0-49.9, adult Nail complaint Osteoarthritis Right knee DJD RLS (restless legs syndrome) Type 2 diabetes mellitus with complication Urinary incontinence Vitamin D deficiency Surgical History History of cholecystectomy 12/28/17 History of total knee replacement R 2016, L 2017 History of total left hip arthroplasty 2007 S/P inguinal hernia repair S/P partial thyroidectomy S/P tonsillectomy S/P total hysterectomy Family History Mother Depression Diabetes Gallbladder disease Hypertension Lung cancer Alzheimer disease Father Lung cancer Bone cancer Grandmother Myocardial infarction Family/Other Breast cancer cousin Ovarian cancer Denies family history of Prostate cancer Colorectal cancer Social History Smoking Status: Never smoker Cigarettes Per Day: TRIED OCC. 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; Second Hand Exposure: No; Hx Alcohol Use: No Hx Substance Use: No Preferred Language: Tamazight Communication Ability: Effective Visual Impairment: No Limitations Hearing Ability: Normal Energy Professional Required: No Beliefs That Will Affect Care: None marital status: Current Living Situation: Spouse current occupational status: retired How many Children do You have: 2 Feels Safe at Home: Yes Diet Comment: regular caffeine: Yes during the past year weight has: remained stable Dental Care, Regularly: Yes Physical Activity Frequency: 1-2 Times per Week Seatbelt Use: always Sunscreen Use: No Assistive Devices: Walker Review of Systems Review of Systems: Denies current fever, chills, headache, changes in vision, hearing, taste, and smell, chest pain, SOB, cough, abdominal pain, hematemesis, melena, hematuria, All systems have been reviewed and are otherwise negative. Physical Exam Physical Exam: Physical Exam: General: In no acute distress, stated age, morbidly obese, chronically ill appearing HEENT: Normocephalic, atraumatic, no scleral icterus, pupils around round, symmetrical, and reactive to light, dry mucus membranes, trachea midline, no thyromegaly Chest/Pulm: No respiratory distress, symmetrical chest expansion, clear breath sounds throughout Cardiac: regular rate, irregular rhythm , no murmurs noted Abdomen: Negative for ascites and bruising, normoactive bowel sounds, soft, non-tender to palpation throughout Musculoskeletal: Patient is non-tender to palpation of the face, heat, cervical spine, no ROM limitation of the BL upper and lower extremities with symmetrical strength, no tenderness to palpation of the BL hips Extremities: Radial, dorsalis pedis, and posterior tibial pulses are intact and symmetrical, 2+ pitting edema noted in the BL LE's Skin: Warm, dry, no rashes , lesions, or scars noted Neuro: Alert and oriented to person, place, month, year, and president, no focal defects, CN II-XII tested and intact, no tremors noted Psych: No acute distress, calm and cooperative during the exam Results & Data Results & Data ([facility]) Vital Signs (Past 12 Hours) Vital Signs Temp Pulse Resp BP Pulse Ox O2 Del Method 09/26/22 09:30 86 21 94 Room Air 09/26/22 08:14 79 09/26/22 07:33 69 18 93 Room Air 09/26/22 07:33 36.7 C 18 93 Room Air 09/26/22 07:08 36.9 C 85 20 191/89 H 92 Room Air Laboratory Results Abnormal lab results 09/26/22 09/26/22 09/26/22 Range/Units 07:38 07:38 09:49 Neut # (Auto) 6.98 H (1.40-6.50) K/uL Potassium 2.9 L (3.5-5.1) mmol/L Carbon Dioxide 33 H (21-32) mmol/L Creatinine 0.49 L (0.6-1.2) mg/dl BUN/Creatinine Ratio 20.4 H (10-20) Glucose 167 H (70-99(Fasting)) mg/dl Magnesium 1.6 L (1.7-2.4) mg/dl Troponin I High Sens 21.9 H 20.1 H (0-14) pg/ml Diagnostic Findings Chest X-Ray 09/26/22 07:20 XR chest 1V portable CLINICAL HISTORY: fall COMPARISON STUDY: Chest radiograph September 16, 2022. Chest CT December 19, 2018. FINDINGS: Osteoarthritis of the glenohumeral joint is incidentally noted. Lungs are clear. There is no pneumothorax or pleural effusion. Cardiac size is normal. Mediastinal contours are normal. There is no evidence for pulmonary edema. IMPRESSION: No acute cardiopulmonary findings. No change in appearance of the chest. ACT 112: Negative or not required by law. Electronically signed by: Sylvain Lane M.D. 09/26/2022 7:[address] 09/26/22 07:[address] DOSE: 1264.32 mGy.cm HISTORY: fall, hit head TECHNIQUE: Multiaxial CT images of the cervical spine were performed and reformatted in the sagittal and coronal plane without the use of contrast. A dose lowering technique was utilized adhering to the principles of ALARA. COMPARISON: None. FINDINGS: No fractures. No subluxation. Prevertebral soft tissues and the C1-C2 interval are intact. No pneumothorax. There is again noted ossification of the posterior longitudinal ligament resulting in severe central canal narrowing at the C2-C3 levels. This is not significantly changed. IMPRESSION: 1. No fractures within the cervical spine. 2. Ossification of posterior longitudinal ligament again noted resulting in severe central canal narrowing at the C2-C3 levels. This is not significantly changed. ACT 112: Negative or not required by law. Electronically signed by: Florencio Max M.D. 09/26/2022 8:[address] 09/26/22 07:21 CT OF THE HEAD WITHOUT CONTRAST CLINICAL HISTORY: fall, hit head COMPARISON STUDY: Head CT August 03, 2022. TECHNIQUE: Helical axial images of the head were obtained without IV contrast. Automated exposure control was utilized for the study. A dose lowering technique was utilized adhering to the principles of ALARA. FINDINGS: No acute intracranial hemorrhage, midline shift or mass effect is present. The ventricular system is stable. The basal cisterns are patent. No extra-axial collections are present. There are no findings to suggest acute dural sinus thrombosis or acute territorial infarct. No significant calvarial abnormalities are present. Visualized portions of the sinuses and mastoid air cells are clear. IMPRESSION: 1. No acute intracranial findings. No change in appearance of the brain. 2. No calvarial fracture. ACT 112: Negative or not required by law. Electronically signed by: Sylvain Lane M.D. 09/26/2022 8:09 AM ECG Additional Comments: Sinus rhythm with Premature supraventricular complexes Left axis deviation Abnormal QRS-T angle, consider primary T wave abnormality Abnormal ECG When compared with ECG of 15-SEP-2022 14:04, Premature ventricular complexes are no longer Present Premature supraventricular complexes are now Present Non-specific change in ST segment in Anterior leads Nonspecific T wave abnormality now evident in Lateral leads QT has shortened Code Status & VTE Plan Code Status Full code VTE Prophylaxis Plan VTE Prophylaxis will be ordered: Yes Supervising Physician Co-Signing Physician Notes I personally saw and examined the patient. I verified all orozco points and agree with Michael Silva PA-C with the following exceptions and/or additions: 67 year old female who presents to the ER following a fall. Recent admission for E. coli bacteremia. O/E A&Ox3, HS RRR, no murmurs, Chest CTAB, Abdo SNT, no hip pain on ext/int rotation of hip, no back pain. A/P Fall/diarrhea/electrolyte abnormalities/generalized weakness - suspect fall and generalized weakness due to diarrhea caused by antibiotics causing hypokalemia and hypomagnesemia. r/o c. diff with PCR when able to produce a stool sample Low suspicion of recurrent infection as leucocytosis resolved. Finish her usual Keflex. PG Care Time/CCT Total # of Minutes Spent Total Time Spent with Patient: Total time spent is greater than 50% in coordination of care (as documented) at patient's floor/unit and/or counseling patient: C[place] [address] INT INP/OBS CARE 3/75MIN Patient Type Established Medical Decision Making High Complexity Diagnoses Fall W19.XXXA Hypokalemia E87.6 Hypomagnesemia E83.42 Elevated troponin R77.8 Diarrhea R19.7 UTI (urinary tract infection) N39.0 HTN (hypertension) I10 Hypertension type: essential hypertension Hyperlipidemia associated with type 2 diabetes mellitus E11.69; E78.5 CAD (coronary artery disease) I25.10 (7) HTN (hypertension) Hypertension type: essential hypertension Qualified Code(s): I10 - Essential (primary) hypertension
[2022-09-26] MEDS ORDERED: ACETAMINOPHEN 325 MG TAB PO STA (10:42)
[2022-09-26] MEDS ORDERED: ONDANSETRON INJ 2 MG/ML 2 ML VIAL IV PRN (10:46)
--- NOTE | 2022-09-26 10:46 | Emergency Department Note ---
ED Visit Note I was consulted by the Advanced Practice Provider. I saw the patient personally and performed a substantive portion of the visit. This includes aspects of the HPI, MDM, diagnostic interpretations, and disposition/plan. Patient presents with weakness and a fall. Work-up does not suggest any acute traumatic injury. With her recent hospitalization, the recent UTI, her weakness and fall, a hospital stay was felt warranted. .
[2022-09-26] MEDS ORDERED: ACETAMINOPHEN 325 MG TAB ONE (10:52)
--- NOTE | 2022-09-26 10:56 | Electrocardiogram Report ---
Test Reason : Blood Pressure : / mmHG Vent. Rate : 062 BPM Atrial Rate : 062 BPM P-R Int : 158 ms QRS Dur : 102 ms QT Int : 384 ms P-R-T Axes : 009 -33 096 degrees QTc Int : 389 ms Sinus rhythm with sinus arrhythmia Left axis deviation Abnormal QRS-T angle, consider primary T wave abnormality Abnormal ECG When compared with ECG of 15-SEP-2022 14:04, Premature ventricular complexes are no longer Present Non-specific change in ST segment in Anterior leads Nonspecific T wave abnormality now evident in Lateral leads QT has shortened Confirmed by Attila Marquis ([id number]) on 09/26/2022 10:56:20 AM Referred By: REFERRED SELF Confirmed By:Attila Marquis
[2022-09-26] MEDS ORDERED: ACETAMINOPHEN 325 MG TAB PO PRN (11:51)
[2022-09-26] MEDS: POTASSIUM CHLORIDE CRTAB 20 MEQ TABCR PO SCH ×4 (12:29→20:08)
[2022-09-26] MEDS: TAMSULOSIN HCL 0.4 MG CAP PO SCH (12:30)
[2022-09-26] MEDS: INSULIN ASPART PER UNIT SC SCH ×3 (12:30→20:29)
[2022-09-26] MEDS: carvediloL 6.25 MG TAB PO SCH ×2 (12:31→20:08)
[2022-09-26] MEDS: cephALEXin 250 MG CAP PO SCH ×3 (12:31→20:08)
[2022-09-26] MEDS: ENOXAPARIN INJ 40 MG/0.4 ML SYR SQ SCH ×2 (12:33→23:07)
[2022-09-26] MEDS: PREGABALIN 100 MG CAP PO SCH ×2 (12:50→20:07)
[2022-09-26] MEDS: MAGNESIUM SULFATE / D5W 1 GM/100 ML BAG IV SCH ×2 (13:00→15:16)
--- NOTE | 2022-09-26 14:11 | XRay Report ---
XR lumbar spine 2-3V CLINICAL HISTORY: fall, low back pain COMPARISON STUDY: Lumbar spine 12/19/2018. Abdomen and pelvis CT 08/03/2022. FINDINGS: No change in the subacute to chronic mild inferior endplate compression fracture at L1 comp ared to the prior CT examination. There is an old mild anterior wedge-shaped compression deformity at T11. No acute fracture or subluxation within the lumbar spine. Levoscoliosis and moderate to severe degenerative disc disease seen throughout the lumbar spine. The visualized sacrum is intact. There is a left total arthroplasty. Prior cholecystectomy. IMPRESSION: 1. No change in the subacute to chronic mild inferior endplate compression fracture at L1. 2. No acute fractures within the lumbar spine. 3. Scoliosis and degenerative changes again noted. ACT 112: Negative or not required by law. Electronically signed by: lForencio Max M.D. 09/26/2022 2:09 PM
[2022-09-26] MEDS: DULoxetine HCL 60 MG CAP PO SCH (20:07)
[2022-09-26] MEDS: ASPIRIN 81 MG ECTAB PO SCH (20:08)
[2022-09-26] MEDS: LANTUS PER UNIT CHARGE SQ SCH (20:40)
[2022-09-27 06:17] LABS: Appearance Urine Clear (Clear); Bacteria Urine Automated Negative (Negative); Bilirubin Urine Negative (Negative); Blood Urine Negative (Negative); Color Urine Yellow; Epithelial Cell Urine Auto >30 /lpf (0-5); Glucose Urine UA Negative (Negative); Ketones Urine Negative (Negative); Leukocyte Esterase Urine 1+ (Negative); Nitrite Urine Negative (Negative); Protein Urine Negative (Negative); RBC Urine Automated 0-4 /hpf (0-4); Specific Gravity Urine 1.009 (1.000-1.030); Urobilinogen Urine Negative (Negative); pH Urine 6.5 (4.5-7.5)
[2022-09-27 07:46] LABS: Hematocrit (blood only) 42.3 % (37.0-47.0); Hemoglobin 14.1 g/dl (12.0-16.0); Mean Corpuscular Hemoglobin 30.9 pg (25.0-34.0); Mean Corpuscular Hgb Conc 33.3 g/dL (32.0-36.0); Mean Corpuscular Volume 92.8 fL (80.0-100.0); Mean Platelet Volume 11.3 fL (9.4-12.4); Platelet Count 224 K/uL (130-400); RDW Coefficient of Variation 13.6 % (11.5-14.5); RDW Standard Deviation 46.5 fL (36.4-46.3); Red Blood Count 4.56 M/uL (4.20-5.40); White Blood Count 6.62 K/ul (4.8-10.8)
[2022-09-27 08:03] LABS: BUN Creatinine Ratio 17.9 (10-20); Chol HDL Ratio 3.7 (0-5); Creatinine Clr Calc Pharmacy 110.5 ml/min; Est GFR (African American) 111.8 ml/min; Est GFR (Non-African American) 96.5 ml/min; Magnesium 2.3 mg/dl (1.7-2.4); Potassium 5.3 mmol/L (3.5-5.1)
[2022-09-27] MEDS: LANTUS PER UNIT CHARGE SQ SCH ×2 (09:18→22:02)
[2022-09-27] MEDS: INSULIN ASPART PER UNIT SC SCH ×4 (09:18→22:03)
[2022-09-27] MEDS: DULoxetine HCL 60 MG CAP PO SCH ×2 (09:21→19:49)
[2022-09-27] MEDS: PREGABALIN 100 MG CAP PO SCH ×2 (09:21→22:02)
[2022-09-27] MEDS: TAMSULOSIN HCL 0.4 MG CAP PO SCH (09:22)
[2022-09-27] MEDS: carvediloL 6.25 MG TAB PO SCH ×2 (09:22→19:48)
[2022-09-27] MEDS: cephALEXin 250 MG CAP PO SCH ×4 (09:22→19:49)
[2022-09-27] MEDS: CALCITONIN SALMON NA 200 IU/AC 3.7 ML BTL SCH (10:18)
[2022-09-27] MEDS: ENOXAPARIN INJ 40 MG/0.4 ML SYR SQ SCH ×2 (12:20→23:58)
--- NOTE | 2022-09-27 12:58 | Hospitalist Progress Note ---
Date of Service September 27, 2022 Assessment & Plan (1) Fall: Plan: -Patient admitted to the hospital after a fall. She said she rolled off the bed -Imaging studies did not show any new fracture -Patient has an old L1 fracture, which did not change -Fall precautions maintained -BL SCD's and Sub-Q lovenox for DVT PPX -AM CBC, BMP, and mag (2) Hypokalemia: Plan: Replaced (3) Hypomagnesemia: Plan: -See hypokalemia (4) Elevated troponin: Plan: Mild elevated trop, no chest pain , no ekg changes (5) Diarrhea: Plan: -Patient has been experiencing 3+ episodes of non-bloody diarrhea daily since discharge, has been on antibiotics -Will obtain stool studies and c. diff toxin screen for further evaluation -Hold antidiarrheals until infectious etiology is ruled out (6) UTI (urinary tract infection): Plan: -Patient was recently admitted for e.coli UTI and bacteremia -Was treated with Ceftriaxone in the hospital with discharge on Keflex -Urine cultures from last admission showing sensitivity to Keflex, will continue with an end date of 09/29/22 -Patient still experiencing dysuria today, will repeat UA to ensure she is being adequately treated (7) HTN (hypertension): Plan: -Now stable -Continue Carvedilol (8) Hyperlipidemia associated with type 2 diabetes mellitus: Plan: -Patient not currently on a Statin, will get an AM lipid panel -Will monitor BSG ACHS, goal is 110-140 -Will start with 8 units lantus BID, correction factor of 50 with carb ratio of 15 -DMII diet (9) CAD (coronary artery disease): Plan: -Continue aspirin Plan hopefully d/c in the next 24 hrs Admission and Anticipated Discharge Date Admission Date: September 26, 2022 Subjective patient seen and examined, no new complaints Review of Systems Review of Systems: All systems reviewed are negative, apart from the ones contained in the history. Physical Exam Physical Exam: The patient is awake, alert and oriented 3, well developed and well nourished, normocephalic and atraumatic, lying in bed and in no acute distress. HEENT--PERRL, EOMI, mucous membranes and oropharynx mildly dry Neck--supple. No JVD. No bruits. Thyroid normal, trachea midline, no adenopathy. Heart--normal S1 and S2. No murmurs, rubs or gallops. Lungs--clear bilaterally, no respiratory distress, no accessory muscle use. Abdomen--normal bowel sounds and soft. Mild epigastric and left sided abdominal pain Extremities--no cyanosis or clubbing. No edema. Dermatologic--normal skin turgor, normal color, no abnormal lymph nodes, no rash. Neurologic--cranial nerves II through XII grossly intact. Rheumatologic--normal range of motion. Psychiatric--normal affect. Results & Data Results & Data ([facility]) Vital Signs (Past 12 Hours) Vital Signs Temp Pulse Pulse Resp BP Pulse Ox O2 Del Method 09/27/22 11:12 97.5 F L 60 16 122/78 94 Room Air 09/27/22 07:25 60 09/27/22 07:15 98.2 F 69 16 144/75 H 90 Room Air 09/27/22 03:48 98.8 F 89 16 161/66 H 95 Room Air PG Care Time/CCT Total # of Minutes Spent Total Time Spent with Patient: Total time spent is greater than 50% in coordination of care (as documented) at patient's floor/unit and/or counseling patient: Coding Level of Care Code 37866 SUB INP/OBS CARE 2/35MIN Diagnoses Fall W19.XXXA Hypokalemia E87.6 Hypomagnesemia E83.42 Elevated troponin R77.8 Diarrhea R19.7 UTI (urinary tract infection) N39.0 HTN (hypertension) I10 Hypertension type: essential hypertension Hyperlipidemia associated with type 2 diabetes mellitus E11.69; E78.5 CAD (coronary artery disease) I25.10 Time Spent (min) 35 (7) HTN (hypertension) Hypertension type: essential hypertension Qualified Code(s): I10 - Essential (primary) hypertension
[2022-09-27 16:31] LABS: Adenovirus F 40/41 PCR Not Detected (NotDetected); Astrovirus PCR Not Detected (NotDetected); Campylobacter PCR Not Detected (NotDetected); Cryptosporidium PCR Not Detected (NotDetected); Cyclospora cayetanensis PCR Not Detected (NotDetected); Entamoeba histolytica PCR Not Detected (NotDetected); Enteroaggregative E.coli(EAEC) Not Detected (NotDetected); Enteropathogenic E.coli (EPEC) Not Detected (NotDetected); Enterotoxigenic E.coli (ETEC) Not Detected (NotDetected); Giardia lamblia PCR Not Detected (NotDetected); Plesiomonas shigelloides PCR Not Detected (NotDetected); Rotavirus A PCR Not Detected (NotDetected); Salmonella PCR Not Detected (NotDetected); Sapovirus PCR Not Detected (NotDetected); Shiga-like Toxin E.coli (STEC) Not Detected (NotDetected); Shigella/Enteroinvasive E.coli Not Detected (NotDetected); Vibrio cholerae PCR Not Detected (NotDetected); Vibrio species PCR Not Detected (NotDetected); Yersinia enterocolitica PCR Not Detected (NotDetected)
[2022-09-27 17:46] LABS: Cdiff Toxin B Gene (2yr or >) Positive Cdiff Gene (Neg); Norovirus GI/GII PCR DETECTED (NotDetected)
[2022-09-27 17:47] LABS: Cdiff Antigen Positive; Cdiff Toxin A+B Positive Cdiff Toxin (Negative)
[2022-09-27] MEDS: VANCOMYCIN HCL 125 MG/2.5ML SOLN PO SCH ×2 (19:08→23:59)
[2022-09-27] MEDS: RASPBERRY SYRUP 5 ML UDP PO SCH ×2 (19:08→23:59)
[2022-09-27] MEDS: ASPIRIN 81 MG ECTAB PO SCH (19:48)
[2022-09-28] MEDS: RASPBERRY SYRUP 5 ML UDP PO SCH ×2 (05:14→12:16)
[2022-09-28] MEDS: VANCOMYCIN HCL 125 MG/2.5ML SOLN PO SCH ×2 (05:14→12:23)
[2022-09-28 08:17] LABS: Hematocrit (blood only) 41.7 % (37.0-47.0); Hemoglobin 13.9 g/dl (12.0-16.0); Mean Corpuscular Hgb Conc 33.3 g/dL (32.0-36.0); Mean Corpuscular Volume 93.1 fL (80.0-100.0); Mean Platelet Volume 11.6 fL (9.4-12.4); Platelet Count 204 K/uL (130-400); RDW Coefficient of Variation 13.2 % (11.5-14.5); RDW Standard Deviation 44.8 fL (36.4-46.3); Red Blood Count 4.48 M/uL (4.20-5.40); White Blood Count 6.89 K/ul (4.8-10.8)
[2022-09-28] MEDS: CALCITONIN SALMON NA 200 IU/AC 3.7 ML BTL SCH (08:20)
[2022-09-28] MEDS: DULoxetine HCL 60 MG CAP PO SCH (08:21)
[2022-09-28] MEDS: TAMSULOSIN HCL 0.4 MG CAP PO SCH (08:21)
[2022-09-28] MEDS: cephALEXin 250 MG CAP PO SCH ×2 (08:22→12:16)
[2022-09-28] MEDS: carvediloL 6.25 MG TAB PO SCH (08:22)
[2022-09-28] MEDS: INSULIN ASPART PER UNIT SC SCH ×2 (08:22→12:16)
[2022-09-28] MEDS: LANTUS PER UNIT CHARGE SQ SCH (08:23)
[2022-09-28] MEDS: PREGABALIN 100 MG CAP PO SCH (08:28)
[2022-09-28 08:40] LABS: BUN Creatinine Ratio 22.8 (10-20); Calcium 9.2 mg/dl (8.5-10.1); Creatinine Clr Calc Pharmacy 108.6 ml/min; Est GFR (African American) 111.2 ml/min; Est GFR (Non-African American) 95.9 ml/min
[2022-09-28] MEDS: ENOXAPARIN INJ 40 MG/0.4 ML SYR SQ SCH (12:17)
--- NOTE | 2022-09-28 12:32 | Discharge Summary ---
Date of Service September 28, 2022 Admission HPI Per Admitting Provider Joy is a 67-year-old female with a past medical history of hyperlipidemia, type II DM with nephropathy, severe cervical spinal stenosis, and recurrent UTIs who presented to the [facility] ED on 09/26/22 with a chief complaint of a fall out of bed this am. In the ED the patient was found to be afebrile, hypertensive at 191/89, and stable on RA. Labs were remarkable for a CBC WNL, stable cr at 0.49, potassium of 2.9 with a magnesium level of 1.6, otherwise stable electrolytes, LFTs WNL, initial high sensitivity trop of 21.9, Covid/Influenza/RSV negative. Chest xray was read as No acute cardiopulmonary findings. No change in appearance of the chest.. Ct of the cervical spine was read as 1. No fractures within the cervical spine. 2. Ossification of posterior longitudinal ligament again noted resulting in severe central canal narrowing at the C2-C3 levels. This is not significantly changed.. CT of the head was read as 1. No acute intracranial findings. No change in appearance of the brain. 2. No calvarial fracture.. Prior to admission the patient was given a 500mL NSS bolus, 1 mg IV magnesium and 2 bags of 10 meq PO KCl. Per chart review, the patient was recently admitted to [facility] from 09/16/22-09/02 for failed outpatient treatment of a UTI and e.coli bacteremia. While in the ED the patient was initially treated with Ceftriaxone. Prior to discharge home she was transitioned to PO Keflex as her urine culture showed sensitivity. AT the time of the exam the patient was lying in bed in no acute distress with her sitting bedside. She states that since her discharge on 09/20 she has experienced approximately 3 episodes of non-bloody diarrhea daily. This am she woke and tried to get out of bed but fell due to generalized weakness in her BL LE's. She landed on her forehead but denies losing consciousness. She was unable to get herself up and her was unable to get her up so EMS was called. She currently denies head pain, neck and thoracic spine pain, chest pain, SOB, abdominal pain, hematuria, melena, bloody BM's, saddle anesthesia, unilateral LE weakness, as-well-as LE numbness or paresthesias. She does not some lumbar back pain since her fall, as-well-as nausea with non-bloody emesis this am and dysuria. She is in agreement with evaluation by physial and occupational therapy while admitted as she may need inpatient rehab on discharge. She wishes to be a Full Code, her son would make medical decisions for her if she could not make them herself. Principal Diagnosis Fall, C Diff Discharge Exam The patient is awake, alert and oriented 3, well developed and well nourished, normocephalic and atraumatic, lying in bed and in no acute distress. HEENT--PERRL, EOMI, mucous membranes and oropharynx mildly dry Neck--supple. No JVD. No bruits. Thyroid normal, trachea midline, no adenopathy. Heart--normal S1 and S2. No murmurs, rubs or gallops. Lungs--clear bilaterally, no respiratory distress, no accessory muscle use. Abdomen--normal bowel sounds and soft. Mild epigastric and left sided abdominal pain Extremities--no cyanosis or clubbing. No edema. Dermatologic--normal skin turgor, normal color, no abnormal lymph nodes, no rash. Neurologic--cranial nerves II through XII grossly intact. Rheumatologic--normal range of motion. Psychiatric--normal affect. Discharge Data Allergies Allergy/AdvReac Type Severity Reaction Status Date / Time tetanus toxoid, adsorbed Allergy Severe TROUBLE Verified 09/26/22 08:22 BREATHING Penicillins Allergy Intermediate ITCHINESS Verified 09/26/22 08:22 onion Allergy Unknown ? Verified 09/26/22 08:22 REACTION, ALLERGY SHOWN ON SKIN TEST orange Allergy Unknown PATCH Verified 09/26/22 08:22 TESTED HIVES REACTION atorvastatin [From Lipitor] AdvReac Intermediate Headache Verified 09/26/22 08:22 meperidine AdvReac Intermediate NAUSEA AND Verified 09/26/22 08:22 VOMITING metformin AdvReac Intermediate diarrhea Verified 09/26/22 08:22 morphine AdvReac Intermediate Gets wild Verified 09/26/22 08:22 and has the shakes oxycodone AdvReac Intermediate Nausea/Vomi Verified 09/26/22 08:22 ting tomato AdvReac Intermediate COUGHING Verified 09/26/22 08:22 sulfamethoxazole AdvReac Unknown Unknown Verified 09/26/22 08:22 [From Bactrim] trimethoprim [From Bactrim] AdvReac Unknown Unknown Verified 09/26/22 08:22 Consultations 09/26/22 09:28 ED Decision to Admit Stat Ordered Studies 09/26/22 07:21 CT cervical spine wo con Stat CT head/brain wo con Stat Hospital Course (1) Fall: -Patient admitted to the hospital after a fall. She said she rolled off the bed -Imaging studies did not show any new fracture -Patient has an old L1 fracture, which did not change -Fall precautions maintained -BL SCD's and Sub-Q lovenox for DVT PPX -AM CBC, BMP, and mag (2) C. difficile diarrhea: -Prior to presentation, Patient has been experiencing 3+ episodes of non-bloody diarrhea daily since discharge, has been on antibiotics -Positive for C diff and Norovirus -No watery stools today -Devante start Oral vancomycin 125mg Q6h for 10 days (3) UTI (urinary tract infection): -Patient was recently admitted for e.coli UTI and bacteremia -Was treated with Ceftriaxone in the hospital with discharge on Keflex -Urine cultures from last admission showing sensitivity to Keflex, will continue with an end date of 09/29/22 -Patient still experiencing dysuria today, will repeat UA to ensure she is being adequately treated (4) Hyperlipidemia associated with type 2 diabetes mellitus: -Patient not currently on a Statin, will get an AM lipid panel -Will monitor BSG ACHS, goal is 110-140 -Will start with 8 units lantus BID, correction factor of 50 with carb ratio of 15 -DMII diet (5) Hypokalemia: Replaced (6) Hypomagnesemia: -See hypokalemia (7) Elevated troponin: Mild elevated trop, no chest pain , no ekg changes (8) Diarrhea: (9) HTN (hypertension): -Now stable -Continue Carvedilol (10) CAD (coronary artery disease): -Continue aspirin Plan d/c today Total Time Total Time Spent Total Time Spent (In Minutes): 35 Discharge Plan Discharge Items Patient Disposition: Home - Self-Care Reason For Visit: MECHANICAL FALL Discharge Diagnosis: Fall, C Diff Condition on Discharge: Good Activity: Resume your previous activity Non-emergency contact: Primary Care Provider Call non-emergency contact if: you have any medication questions Follow-up/Referrals: Mer Jack DO [Primary Care Provider] - Diet: Regular Addtl Attending Provider Instructions: Please make appointment to follow up with your PCP Pending Studies at Discharge: No Stand-Alone Forms: My [facility] [employer], Smoking Cessation Medications and DC Order Prescriptions: New vancomycin 125 mg capsule 125 mg PO Q6H 10 Days Qty: 40 0RF Continued (DME) blood-glucose meter [OneTouch Ultra2 Meter] Misc See Rx Instructions .ROUTE .MEDSUPPLY Qty: 1 0RF Rx Instructions: Test blood sugars 4 times a day (DME) OneTouch Ultra Blue Test Strip Strip See Dose Instructions .ROUTE .MEDSUPPLY Qty: 400 3RF Rx Instructions: test 4 times daily (DME) lancets [OneTouch UltraSoft Lancets] Misc See Dose Instructions .ROUTE .MEDSUPPLY Qty: 400 3RF Dose Instruction: As directed Rx Instructions: Testing 4 times daily (DME) Wheeled Walker Misc See Rx Instructions .Route Qty: 1 0RF Rx Instructions: As directed (DME) pen needle, diabetic [BD Ultra-Fine Araceli Pen Needle] 32 gauge x 5/32" needle See Dose Instructions .ROUTE .MEDSUPPLY Qty: 200 3RF Rx Instructions: use 2 needles daily duloxetine 60 mg capsule,delayed release(DR/EC) 60 mg PO BID Qty: 60 5RF (DME) Scooter Misc See Rx Instructions .Route Qty: 1 0RF Rx Instructions: Motorized Scooter liraglutide 0.6 mg/0.1 mL (18 mg/3 mL) pen injector 1.8 mg SUBCUT QAM Qty: 9 1RF tamsulosin 0.4 mg capsule 0.4 mg PO QAM Qty: 90 1RF cholecalciferol (vitamin D3) 50 mcg (2,000 unit) capsule 2,000 unit PO QAM Tresiba FlexTouch U-100 100 unit/mL (3 mL) insulin pen 46 unit SUBCUT HS 30 Days Qty: 15 5RF omega 6-fmy-bld-fish oil [Fish Oil] 1,000 mg (120 mg-180 mg) Capsule 1,000 mg PO HS aspirin 81 mg Tablet,Delayed Release (Dr/Ec) 81 mg PO HS calcitonin (salmon) 200 unit/actuation Lovely,Non-Aerosol 1 spray NA DAILY Qty: 3.7 0RF carvedilol 6.25 mg Tablet 6.25 mg PO BID Qty: 60 2RF Rx Instructions: for high blood pressure loratadine [Claritin] 10 mg Tablet 10 mg PO DAILY pregabalin [Lyrica] 200 mg Capsule 200 mg PO BID Women's 50 Plus Daily Formula 400 mcg-500 mg calcium-20 mcg Tablet 1 tab PO QAM acetaminophen 325 mg tablet 650 mg PO QID PRN (Reason: Pain) cephalexin 250 mg capsule 250 mg PO QID 10 Days Qty: 40 0RF Discharge Orders: Discharge Order (Routine); Ordered 09/28/22 Ordered By: Alisha Gambino Admission Data Admit Date/Time: 09/27/22 16:03 Attending Provider: Alisha Gambino Admit Provider: Kenneth Martinez Primary Care Provider: Mer Jack Other Providers: Cheko Rodriguez ; [facility] C[facility] Level of Care Code HOSP INP/OBS DISCH >30 MIN Diagnoses Fall W19.XXXA C. difficile diarrhea A04.72 UTI (urinary tract infection) N39.0 Hyperlipidemia associated with type 2 diabetes mellitus E11.69; E78.5 Hypokalemia E87.6 Hypomagnesemia E83.42 Elevated troponin R77.8 Diarrhea R19.7 HTN (hypertension) I10 Hypertension type: essential hypertension CAD (coronary artery disease) I25.10 Time Spent (min) 35
== END 2022-09-28 15:31 | disposition home or self-care (01) | DRG 373 ==
LOC: ED 07:02 → 2N 07:02 → SUATTDRO 10:19 → 2N 11:09

== ENCOUNTER 2023-07-05 21:29 | Observation (INO) ==
[~2023-07-05 21:29] MED LIST changes: -ASPI81TA28 PO; -ATEN-173 PO; -CHOL200010 PO; -CINN1CAP2 PO; -CYM60 PO; -INSU1INJ33 SQ; -LIRA18IN INJ; -MULT1TAB22 PO; -NORT25CA PO; -OMEG10007 PO; -OMEP20CA9 PO; -ONDA4TAB46 PO; -PREG1CAP70 PO; +SODIUM CHLORIDE 0.9% 1,000 ML IV ONE; -TOPI25CA2 PO
[2023-07-05] MEDS ORDERED: OPTIRAY 320 125ml IV ONE (21:37)
--- NOTE | 2023-07-05 21:54 | CT Scan Report ---
Exam(s): CT HEAD Without Contrast EXAM: CT Head Without Intravenous Contrast CLINICAL HISTORY: Reason for exam: neuro deficit, acute stroke suspected. TECHNIQUE: Axial computed tomography images of the head/brain without intravenous contrast. Automated exposure control was utilized for the study. A dose lowering technique was utilized adhering to the principles of ALARA. COMPARISON: None. FINDINGS: Brain: Mild to moderate generalized brain atrophy. Decreased attenuation within the deep white matter compatible with microangiopathic disease. No hemorrhage. Ventricles: Unremarkable. No ventriculomegaly. Bones/joints: Unremarkable. No acute fracture. Soft tissues: Unremarkable. Sinuses: Unremarkable as visualized. No acute sinusitis. Mastoid air cells: Unremarkable as visualized. No mastoid effusion. IMPRESSION: Chronic changes as described. No acute intracranial hemorrhage or space-occupying lesion. Communications: Call Doctor Stroke Electronically signed by: Joann Perez MD 07/05/23 21:53 PM
--- NOTE | 2023-07-05 21:56 | CT Scan Report ---
Exam(s): CTA NECK With Contrast IV Amt: 117 EXAM: CT Angiography Neck With Intravenous Contrast CLINICAL HISTORY: Reason for exam: neuro deficit, acute stroke suspected. TECHNIQUE: Routine carotid CT angiography protocol was performed with intravenous contrast. NASCET criteria using the distal ICAs for comparison were used for evaluation of stenoses. Automated exposure control was utilized for the study. A dose lowering technique was utilized adhering to the principles of ALARA. MIP reconstructed images were created and reviewed. CONTRAST: Patient received 117 of IV contrast COMPARISON: None. FINDINGS: VASCULATURE: Right common carotid artery: Unremarkable. No occlusion or significant stenosis. No dissection. Right internal carotid artery: Minimal calcified plaque at the right carotid bulb. Extracranial segment is patent with no occlusion or significant stenosis. No dissection. Right external carotid artery: Unremarkable. No occlusion. Right vertebral artery: Unremarkable. No occlusion or significant stenosis. No dissection. Left common carotid artery: Unremarkable. No occlusion or significant stenosis. No dissection. Left internal carotid artery: Unremarkable. Extracranial segment is patent with no occlusion or significant stenosis. No dissection. Left external carotid artery: Unremarkable. No occlusion. Left vertebral artery: Unremarkable. No occlusion or significant stenosis. No dissection. Aorta: Mild calcified disc disease throughout the aortic arch with no aneurysm or dissection. NECK: Bones/joints: Unremarkable. No acute fracture. Soft tissues: Unremarkable. Lung apices: Lung ABCs revealed mild vascular crowding. CAROTID STENOSIS REFERENCE USING NASCET CRITERIA: % ICA stenosis = (1 - narrowest ICA diameter/diameter of distal cervical ICA) x 100. Mild - <50% stenosis. Moderate - 50-69% stenosis. Severe - 70-94% stenosis. Near occlusion - 95-99% stenosis. Occluded - 100% stenosis. IMPRESSION: Negative CT angiogram of the neck with no focal stenosis, occlusion or dissection involving the bilateral carotid and vertebral arteries. Communications: Call Doctor Stroke Electronically signed by: Joann Perez MD 07/05/23 21:55 PM
--- NOTE | 2023-07-05 21:57 | XRay Report ---
SINGLE VIEW CHEST CLINICAL HISTORY: Neurological deficit. Stroke like symptoms FINDINGS: An AP, portable, upright chest radiograph is compared to study dated 09/26/2022. The examina tion is degraded by portable technique and patient rotation. The heart is enlarged. The pulmonary va sculature is noncongested. Chronic interstitial thickening is similar to previous. Mild atelectasis i s seen at the lung bases. The lungs and pleural spaces are otherwise clear. No pneumothorax is seen. The skeletal structures are osteopenic. The bony thorax is grossly intact. Arthritic change is seen i n the shoulders. IMPRESSION: Cardiomegaly with no active disease in the chest. ACT 112: Negative or not required by law. Electronically signed by: Jv Carrasquillo M.D. 07/05/2023 9:55 PM
--- NOTE | 2023-07-05 22:00 | CT Scan Report ---
Exam(s): CTA HEAD With Contrast IV Amt: 117ml EXAM: CT Angiography Head With Intravenous Contrast CLINICAL HISTORY: Reason for exam: neuro deficit, acute stroke suspected. TECHNIQUE: Axial computed tomographic angiography images of the head with intravenous contrast. Automated exposure control was utilized for the study. A dose lowering technique was utilized adhering to the principles of ALARA. MIP reconstructed images were created and reviewed. CONTRAST: Patient received 117ml of IV contrast COMPARISON: None. FINDINGS: Right internal carotid artery: Minimal calcified atherosclerotic disease of the cavernous portion of the right internal carotid artery with no stenosis or occlusion. No aneurysm. Right anterior cerebral artery: Unremarkable. No occlusion or significant stenosis. No aneurysm. Right middle cerebral artery: Unremarkable. No occlusion or significant stenosis. No aneurysm. Right posterior cerebral artery: Unremarkable. No occlusion or significant stenosis. No aneurysm. Right vertebral artery: Unremarkable as visualized. Left internal carotid artery: Minimal calcified atherosclerotic disease of the cavernous portion of the left internal carotid artery with no stenosis or occlusion. No aneurysm. Left anterior cerebral artery: Unremarkable. No occlusion or significant stenosis. No aneurysm. Left middle cerebral artery: Unremarkable. No occlusion or significant stenosis. No aneurysm. Left posterior cerebral artery: Unremarkable. No occlusion or significant stenosis. No aneurysm. Left vertebral artery: Unremarkable as visualized. Basilar artery: Unremarkable. No occlusion or significant stenosis. No aneurysm. 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 Communications: Call Doctor Stroke Electronically signed by: Joann Perez MD 07/05/23 21:59 PM
[2023-07-05] MEDS ORDERED: ACETAMINOPHEN 1,000 MG/100 ML VIAL IV STA (22:01)
[2023-07-05 22:10] LABS: INR 1.1 (0.9-1.1); Partial Thromboplastin Ratio 0.9; Partial Thromboplastin Time 25 Seconds (21-31); Prothrombin Time 12.2 Seconds (9.0-12.0)
[2023-07-05 22:12] LABS: Basophils # (auto) 0.03 K/uL (0.00-0.20); Basophils % (auto) 0.2 %; Eosinophils # (auto) 0.01 K/uL (0.00-0.50); Eosinophils % (auto) 0.1 %; Hematocrit (blood only) 44.9 % (37.0-47.0); Hemoglobin 15.7 g/dl (12.0-16.0); Immature Granulocytes # (auto) 0.07 K/uL (0.01-0.20); Immature Granulocytes % (auto) 0.5 %; Lymphocytes # (auto) 2.33 K/uL (1.20-3.40); Lymphocytes % (auto) 16.7 %; Mean Corpuscular Hemoglobin 30.7 pg (25.0-34.0); Mean Corpuscular Volume 87.9 fL (80.0-100.0); Mean Platelet Volume 11.6 fL (9.4-12.4); Monocytes # (auto) 0.73 K/uL (0.11-0.59); Monocytes % (auto) 5.2 %; Neutrophils # (auto) 10.78 K/uL (1.40-6.50); Neutrophils % (auto) 77.3 %; Platelet Count 197 K/uL (130-400); RDW Coefficient of Variation 13.1 % (11.5-14.5); RDW Standard Deviation 41.9 fL (36.4-46.3); Red Blood Count 5.11 M/uL (4.20-5.40); White Blood Count 13.95 K/ul (4.8-10.8)
[2023-07-05 22:28] LABS: Appearance Urine Cloudy (Clear); Bacteria Urine Automated 4+ (Negative); Bilirubin Urine Negative (Negative); Blood Urine 1+ (Negative); Cast Urine Automated 0 /lpf (0-5); Color Urine Orange; Glucose Urine UA Trace (Negative); Ketones Urine Negative (Negative); Leukocyte Esterase Urine 2+ (Negative); Nitrite Urine Negative (Negative); RBC Urine Automated 0-4 /hpf (0-4); Specific Gravity Urine > 1.045 (1.000-1.030); Urobilinogen Urine Negative (Negative); WBC Urine Automated >30 /hpf (0-5); pH Urine 7.5 (4.5-7.5)
[2023-07-05 22:31] LABS: Protein Urine Trace (Negative)
[2023-07-05 22:35] LABS: BUN Creatinine Ratio 13.1 (10-20); Calcium 8.8 mg/dl (8.6-10.3); Est GFR (Non-African American) 93.1 ml/min
[2023-07-05 22:36] LABS: Albumin Level 3.5 gm/dl (3.4-5.0); Bilirubin,Total 1.1 mg/dl (0.2-1.0); Globulin 3.4 gm/dl (2.5-4.0); Magnesium 1.5 mg/dl (1.7-2.4); Phosphorus 2.9 mg/dl (2.5-4.9); Potassium 3.5 mmol/L (3.5-5.1); Total Protein 6.9 gm/dl (6.0-8.3); Troponin I High Sensitivity 19.5 pg/ml (0-14)
[2023-07-05 23:06] LABS: Adenovirus PCR Not Detected (NotDetected); Bordetella parapertussis PCR Not Detected (NotDetected); Bordetella pertussis PCR Not Detected (NotDetected); Chlamydia pneumoniae PCR Not Detected (NotDetected); Coronavirus 229E PCR Not Detected (NotDetected); Coronavirus CoV-2 (COVID19)PCR Not Detected (NotDetected); Coronavirus HKU1 PCR Not Detected (NotDetected); Coronavirus NL63 PCR Not Detected (NotDetected); Coronavirus OC43PCR Not Detected (NotDetected); Human Metapneumovirus PCR Not Detected (NotDetected); Influenza A PCR Not Detected (NotDetected); Influenza B PCR Not Detected (NotDetected); Mycoplasma pneumoniae PCR Not Detected (NotDetected); Parainfluenza Virus 1 PCR Not Detected (NotDetected); Parainfluenza Virus 2 PCR Not Detected (NotDetected); Parainfluenza Virus 3 PCR Not Detected (NotDetected); Parainfluenza Virus 4 PCR Not Detected (NotDetected); Respiratory Syncytial VirusPCR Not Detected (NotDetected); Rhinovirus/Enterovirus PCR Not Detected (NotDetected)
[2023-07-05] MEDS ORDERED: cefTRIAXone SODIUM 2,000 MG/50 ML BAG IV STA (23:16)
--- NOTE | 2023-07-05 23:18 | Emergency Department Note ---
Impression & Plan Metabolic encephalopathy, Complicated urinary tract infection, HTN (hypertension), Hypomagnesemia, Elevated lactic acid level, Elevated troponin ED Provider Note NAME: ROMEO DECKER AGE: 68 SEX: F ARRIVES VIA: Ambulance INFORMANT: Patient ED PROVIDER(S): Rafi Archuleta MD CHIEF COMPLAINT: change in mental status, syncope PLAN: Disposition: Admit MEDICAL DECISION MAKING: The patient is a 68-year-old woman with a past medical history of type 2 diabetes, hypertension, hyperlipidemia, diabetic neuropathy, history of encephalopathy secondary to UTI who presents to the emergency department via EMS as a stroke alert after the patient was found to be confused following a fall around 1830 this evening where her called a neighbor who then contacted their son to assist in getting her up. The patient is a poor historian and does not recall the details but feels she may have been lightheaded. However upon EMS arrival the patient was not even able to express this and was verbal. They report that the patient had commented to her son that she had not "felt well" for the past several days but he is unaware of the details of how she felt unwell but they did suspect a UTI as she did report burning. The patient's son does acknowledge that if she were having similar symptoms/she did today with difficulty speaking and balance it might not have been noticed by the patient's who is elderly and may have some baseline dementia. Thus, it was determined that the patient's last known well is unknown and may be over 72 hours prior to her fall today and so patient is not a TNK nor endovascular candidate. Given unclear circumstances upon my discussion with EMS crew on medical command call stroke alert was activated. Patient was taken straight to CT for imaging. On my evaluation the patient is no distress, afebrile blood pressure significant elevated in the 230s/110s and vital signs otherwise stable. She appears clinically dry. She is alert and oriented to self and place though has difficulty stating her year or the current year. Additionally she has difficulty with attention and following commands but no discrete hemineglect necessarily. She exhibits symmetric strength of bilateral upper and lower extremities with 4/[address] strength [address] extremities. CT of the head and CT of the head and neck were were negative for ICH, ischemia or severe near occlusion of large vessels. Thus stroke alert was discontinued. EKG without overt acute ischemia. CXR negative for acute cardiopulmonary process per my personal preliminary review/interpretation. WBC 13.9 K, nonspecific with neutrophil predominance but no left shift. H/H and platelets within normal limits. Initial lactic acid is 2.6 however chemistry without metabolic acidosis. Magnesium 1.5 sodium 132 electrolytes otherwise unremarkable. Total bilirubin 1.1, nonspecific with LFTs otherwise normal. High-sensitivity troponin is 19.5, nonspecific. UA suspicious for infection with WBCs and 4+ bacteria. Blood cultures were obtained and empiric treatment initiated with ceftriaxone which would be effective per prior urine cultures reviewed in the medical record. Respiratory viral panel/[employer] was negative. Patient and her son agree with plan for admission for further management of suspected metabolic encephalopathy secondary to UTI. Dr. Salazar, [facility] hospitalist, to evaluate the patient for admission. Further management per admitting team. Triage Nursing notes reviewed and agree them. Prior/external medical records reviewed Vital Signs: reviewed Differential diagnosis: Infection, dehydration, metabolic abnormality, hypo/hyperglycemia, electrolyte disturbance, anemia, hypoxia, cardiac sources, intracerebral event, toxicologic, neurologic, as well as other pathologies. ER treatment provided: See below. Diagnostics interpreted by me: ECG: Sinus rhythm, 86 bpm, PACs, LVH, nonspecific ST abnormality, no overt ST elevation or depression, QTc 470, QRS 88 Cardiac Monitoring: An order for continuous cardiac monitoring was placed and demonstrated Sinus rhythm, 86 bpm, PACs. Laboratory studies: See below Imaging studies: See below Consultation(s): Dr. Salazar, [facility] hospitalist HPI: The patient is a 68-year-old woman with a past medical history of type 2 diabetes, hypertension, hyperlipidemia, diabetic neuropathy, history of encephalopathy secondary to UTI who presents to the emergency department via EMS as a stroke alert after the patient was found to be confused following a fall around 1830 this evening where her called a neighbor who then contacted their son to assist in getting her up. The patient is a poor historian and does not recall the details but feels she may have been lightheaded. However upon EMS arrival the patient was not even able to express this and was verbal. They report that the patient had commented to her son that she had not "felt well" for the past several days but he is unaware of the details of how she felt unwell but they did suspect a UTI as she did report burning. The patient's son does acknowledge that if she were having similar symptoms/she did today with difficulty speaking and balance it might not have been noticed by the patient's who is elderly and may have some baseline dementia. Thus, it was determined that the patient's last known well is unknown and may be over 72 hours prior to her fall today and so patient is not a TNK nor endovascular candidate. Given unclear circumstances upon my discussion with EMS crew on medical command call stroke alert was activated. Patient was taken straight to CT for imaging. ROS: See above HPI for pertinent positives & negatives. A total of 10 systems reviewed and were otherwise negative. VITALS:See Below PHYSICAL EXAMINATION: GENERAL: Awake, alert, fatigued-appearing, in no distress HENT: Normocephalic, atraumatic. Oropharynx with dry mucous membranes and otherwise unremarkable. EYES: Normal conjunctiva. Sclera non-icteric. EOMI. No nystamgus. PEARRL. NECK: Supple. No nuchal rigidity. FROM. No JVD. RESPIRATORY: Clear to auscultation. CARDIAC: Regular rate, normal rhythm. Extremities warm and well perfused. Pulses equal. ABDOMEN: Soft, non-distended. No tenderness to palpation. No rebound or guarding. No masses. RECTAL: Deferred. MUSCULOSKELETAL: Chest examination reveals no tenderness. The back is symmetrical on inspection without obvious abnormality. There is no CVA tenderness to palpation. No joint edema. LOWER EXTREMITIES: Calves are equal size bilaterally and non-tender. No edema. No discoloration. NEURO: Poor attention but alert to self and place. Confused to year of and current year. Smile symmetric. 5/5 BUE, 4/5 BLE. SKIN: No rash or jaundice noted. Rafi Archuleta MD Past Med/Surg History Medical History Acute alteration in mental status Acute UTI (urinary tract infection) Morbid obesity with BMI of 45.0-49.9, adult Acute encephalopathy Kidney stones Closed compression fracture of L1 vertebra Chest pain Nail complaint Hallux valgus (acquired), left foot Acquired hallux valgus of right foot Acquired claw toe of right foot Acquired claw toe of left foot Diabetes mellitus with diabetic polyneuropathy Urinary incontinence History of cholecystitis Diverticulitis Hypertriglyceridemia Microalbuminuria Type 2 diabetes mellitus with complication Vitamin D deficiency History of anesthesia reaction PT STATES SHE IS SLOW TO WAKE, NO DOCUMENTED ADVERSE REACTION Anemia Diverticulitis Colitis 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 RLS (restless legs syndrome) Osteoarthritis GERD (gastroesophageal reflux disease) Right knee DJD HTN (hypertension) Surgical History History of cholecystectomy 12/28/17 History of total knee replacement R 2015, L 2017 S/P tonsillectomy S/P partial thyroidectomy S/P total hysterectomy History of total left hip arthroplasty 2007 S/P inguinal hernia repair Family History Mother Depression Diabetes Gallbladder disease Hypertension Lung cancer Alzheimer disease Father Lung cancer Bone cancer Grandmother Myocardial infarction Family/Other Breast cancer cousin Ovarian cancer Denies family history of Prostate cancer Colorectal cancer Social History Smoking Status: Unknown if ever smoked Cigarettes Per Day: TRIED OCC. 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; Second Hand Exposure: No; Do You Dip or Chew Tobacco: No; Hx Alcohol Use: No Hx Substance Use: No Preferred Language: Lao Communication Ability: Effective Visual Impairment: No Limitations Hearing Ability: Normal Treating And Pumping Supervisor Required: No Beliefs That Will Affect Care: None marital status: Current Living Situation: Spouse current occupational status: retired How many Children do You have: 2 Feels Safe at Home: Yes Diet: regular Diet Comment: regular caffeine: Yes during the past year weight has: remained stable Dental Care, Regularly: Yes Physical Activity Frequency: 1-2 Times per Week Seatbelt Use: always Sunscreen Use: No Assistive Devices: Walker Allergies Allergies Allergy/AdvReac Type Severity Reaction Status Date / Time tetanus toxoid, adsorbed Allergy Severe TROUBLE Verified 12/02/22 11:49 BREATHING Penicillins Allergy Intermediate ITCHINESS Verified 12/02/22 11:49 onion Allergy Unknown ? Verified 12/02/22 11:49 REACTION, ALLERGY SHOWN ON SKIN TEST orange Allergy Unknown PATCH Verified 12/02/22 11:49 TESTED HIVES REACTION atorvastatin [From Lipitor] AdvReac Intermediate Headache Verified 12/02/22 11:49 meperidine AdvReac Intermediate NAUSEA AND Verified 12/02/22 11:49 VOMITING metformin AdvReac Intermediate diarrhea Verified 12/02/22 11:49 morphine AdvReac Intermediate Gets wild Verified 12/02/22 11:49 and has the shakes oxycodone AdvReac Intermediate Nausea/Vomi Verified 12/02/22 11:49 ting tomato AdvReac Intermediate COUGHING Verified 12/02/22 11:49 sulfamethoxazole AdvReac Unknown Unknown Verified 12/02/22 11:49 [From Bactrim] trimethoprim [From Bactrim] AdvReac Unknown Unknown Verified 12/02/22 11:49 Home Meds Home Medications Medication Instructions Recorded Confirmed omega 4-pjn-wff-fish oil 1,000 mg 1,000 mg PO HS 06/20/18 07/05/23 (120 mg-180 mg) capsule (Fish Oil) cholecalciferol (vitamin D3) 50 2,000 unit PO QAM 05/15/21 07/05/23 mcg (2,000 unit) capsule aspirin 81 mg tablet,delayed 81 mg PO HS 04/05/22 07/05/23 release acetaminophen 325 mg tablet 650 mg PO QID PRN Pain 09/15/22 07/05/23 ottmurvl-rgf-xzozm ac 400 1 tab PO QAM 09/15/22 07/05/23 mcg-calcium carb 500 mg-vit K1 20 mcg tablet (Women's 50 Plus Daily Formula) Previous Rx's Medication Instructions Recorded OneTouch Ultra2 Meter #1 ea 09/18/20 (blood-glucose meter) blood sugar diagnostic (OneTouch #400 ea 09/19/20 Ultra Blue Test Strip) lancets (OneTouch UltraSoft #400 ea 09/19/20 Lancets) Wheeled Walker #1 ea 07/09/21 Scooter #1 ea 06/02/22 calcitonin (salmon) 200 1 spray NA DAILY #3.7 mL 07/07/22 unit/actuation nasal spray tamsulosin 0.4 mg capsule 0.4 mg PO DAILY #30 caps 11/01/22 loratadine 10 mg tablet (Claritin) 10 mg PO DAILY #90 tabs 12/14/22 BD Ultra-Fine Araceli Pen Needle 32 #200 ea 04/06/23 gauge x 5/32" (pen needle, diabetic) semaglutide 0.25 mg or 0.5 mg (2 0.5 mg (0.736 mL) subcut Q7D 30 04/15/23 mg/3 mL) subcutaneous pen injector days #3 mL (Ozempic) omeprazole 40 mg capsule,delayed See Rx Instructions .Route 05/09/23 release .COMPLEX #90 caps oxybutynin chloride 5 mg tablet See Rx Instructions .Route 05/09/23 .COMPLEX #270 tabs cephalexin 500 mg capsule 2,000 mg (4 x 500 mg) PO ONCE #4 05/19/23 caps carvedilol 6.25 mg tablet 6.25 mg PO BID #180 tabs 06/08/23 duloxetine 60 mg capsule,delayed 60 mg PO BID #60 caps 06/12/23 release pregabalin 150 mg capsule 150 mg PO BID #60 caps 06/12/23 insulin degludec 100 unit/mL (3 50 unit (0.5 mL) subcut HS 90 days 06/17/23 mL) subcutaneous pen (Tresiba #45 mL FlexTouch U-100 insulin) Results & Data (ED) Vital Signs Vital Signs - 24 hr 07/05/23 21:42 07/05/23 21:43 07/05/23 21:46 Temperature Temperature Source Pulse Rate 89 87 Pulse Rate from SpO2 Sensor 79 Respiratory Rate 17 Blood Pressure 237/86 H Blood Pressure Mean 123 Pulse Oximetry 97 Oxygen Delivery Method Sepsis Recent Fever Within 48 Hours Sepsis New/Unexplained Change in Mental Status Sepsis Action Taken by Nursing 07/05/23 21:48 07/05/23 21:50 07/05/23 21:50 Temperature 36.8 C Temperature Source Oral Pulse Rate 87 86 Pulse Rate from SpO2 Sensor Respiratory Rate 18 18 Blood Pressure 246/131 H Blood Pressure Mean 153 Pulse Oximetry 97 Oxygen Delivery Method Room Air Sepsis Recent Fever Within 48 Hours No Sepsis New/Unexplained Change in Mental Status No Sepsis Action Taken by Nursing No Action Required 07/05/23 22:00 07/05/23 22:01 07/05/23 22:01 Temperature Temperature Source Pulse Rate 97 H 73 Pulse Rate from SpO2 Sensor Respiratory Rate 19 20 Blood Pressure 179/136 H Blood Pressure Mean 152 Pulse Oximetry Oxygen Delivery Method Sepsis Recent Fever Within 48 Hours Sepsis New/Unexplained Change in Mental Status Sepsis Action Taken by Nursing 07/05/23 22:10 07/05/23 22:10 07/05/23 22:20 Temperature Temperature Source Pulse Rate 84 81 Pulse Rate from SpO2 Sensor 67 Respiratory Rate 14 20 Blood Pressure 225/111 H Blood Pressure Mean 172 Pulse Oximetry 96 Oxygen Delivery Method Sepsis Recent Fever Within 48 Hours Sepsis New/Unexplained Change in Mental Status Sepsis Action Taken by Nursing 07/05/23 22:22 07/05/23 22:22 07/05/23 22:30 Temperature Temperature Source Pulse Rate 80 73 Pulse Rate from SpO2 Sensor 68 72 Respiratory Rate 16 20 Blood Pressure 196/89 H Blood Pressure Mean 152 Pulse Oximetry 97 95 Oxygen Delivery Method Sepsis Recent Fever Within 48 Hours Sepsis New/Unexplained Change in Mental Status Sepsis Action Taken by Nursing 07/05/23 22:30 07/05/23 22:40 07/05/23 22:40 Temperature Temperature Source Pulse Rate 77 Pulse Rate from SpO2 Sensor 74 Respiratory Rate 13 Blood Pressure 225/91 H 223/108 H Blood Pressure Mean 140 155 Pulse Oximetry 95 Oxygen Delivery Method Sepsis Recent Fever Within 48 Hours Sepsis New/Unexplained Change in Mental Status Sepsis Action Taken by Nursing 07/05/23 22:50 07/05/23 22:51 07/05/23 22:51 Temperature Temperature Source Pulse Rate 75 80 Pulse Rate from SpO2 Sensor 72 Respiratory Rate 15 17 Blood Pressure 192/95 H Blood Pressure Mean 132 Pulse Oximetry 97 Oxygen Delivery Method Sepsis Recent Fever Within 48 Hours Sepsis New/Unexplained Change in Mental Status Sepsis Action Taken by Nursing 07/05/23 23:11 07/05/23 23:30 07/06/23 00:00 Temperature Temperature Source Pulse Rate 67 82 72 Pulse Rate from SpO2 Sensor Respiratory Rate 14 12 12 Blood Pressure 183/87 H 198/103 H 194/119 H Blood Pressure Mean 119 134 144 Pulse Oximetry 95 94 95 Oxygen Delivery Method Sepsis Recent Fever Within 48 Hours Sepsis New/Unexplained Change in Mental Status Sepsis Action Taken by Nursing Laboratory Data Attestation: I reviewed the patient's lab results. 07/05/23 21:47 07/05/23 21:47 Lab Results 07/05/23 07/05/23 07/05/23 Range/Units 21:41 21:47 21:58 WBC 13.95 H (4.8-10.8) K/ul RBC 5.11 (4.20-5.40) M/uL Hgb 15.7 (12.0-16.0) g/dl Hct 44.9 (37.0-47.0) % MCV 87.9 (80.0-100.0) fL MCH 30.7 (25.0-34.0) pg MCHC 35.0 (32.0-36.0) g/dL RDW Std Deviation 41.9 (36.4-46.3) fL RDW Coeff of Charly 13.1 (11.5-14.5) % Plt Count 197 (130-400) K/uL MPV 11.6 (9.4-12.4) fL Immature Gran % (Auto) 0.5 % Neut % (Auto) 77.3 % Lymph % (Auto) 16.7 % [place] % (Auto) 5.2 % Eos % (Auto) 0.1 % Baso % (Auto) 0.2 % Neut # (Auto) 10.78 H (1.40-6.50) K/uL Lymph # (Auto) 2.33 (1.20-3.40) K/uL [place] # (Auto) 0.73 H (0.11-0.59) K/uL Eos # (Auto) 0.01 (0.00-0.50) K/uL Baso # (Auto) 0.03 (0.00-0.20) K/uL Immature Gran # (Auto) 0.07 (0.01-0.20) K/uL PT 12.2 H (9.0-12.0) Seconds INR 1.1 (0.9-1.1) APTT 25 (21-31) Seconds PTT Ratio 0.9 Sodium 132 L (136-145) mmol/L Potassium 3.5 (3.5-5.1) mmol/L Chloride 95 L (98-107) mmol/L Carbon Dioxide 28 (21-32) mmol/L Anion Gap 9 (3-11) BUN 8 (6-23) mg/dl Creatinine 0.61 (0.6-1.2) mg/dl Est Cr Clr Drug Dosing 102.0 ml/min Est GFR ( Amer) 108.0 ml/min Est GFR (Non-Af Amer) 93.1 ml/min BUN/Creatinine Ratio 13.1 (10-20) Glucose 273 H (70-99(Fasting)) mg/dl POC Glucose 247 H (70-99) mg/dl Lactate 2.6 H* (0.4-2.0) mmol/L Calcium 8.8 (8.6-10.3) mg/dl Phosphorus 2.9 (2.5-4.9) mg/dl Magnesium 1.5 L (1.7-2.4) mg/dl Total Bilirubin 1.1 H (0.2-1.0) mg/dl AST 30 (13-39) U/L ALT 20 (7-52) U/L Alkaline Phosphatase 84 (34-104) U/L Troponin I High Sens 19.5 H (0-14) pg/ml Total Protein 6.9 (6.0-8.3) gm/dl Albumin 3.5 (3.4-5.0) gm/dl Globulin 3.4 (2.5-4.0) gm/dl Albumin/Globulin Ratio 1.0 (0.9-2) Procalcitonin (0-0.5) ng/ml Urine Color Urine Appearance (Clear) Urine pH (4.5-7.5) Ur Specific [place] (1.000-1.030) Urine Protein (Negative) Urine Glucose (UA) (Negative) Urine Ketones (Negative) Urine Blood (Negative) Urine Nitrite (Negative) Urine Bilirubin (Negative) Urine Urobilinogen (Negative) Ur Leukocyte Esterase (Negative) Urine WBC (Auto) (0-5) /hpf Urine RBC (Auto) (0-4) /hpf U Hyaline Cast (Auto) (0-5) /lpf U Epithel Cells (Auto) (0-5) /lpf Urine Bacteria (Auto) (Negative) Urine Yeast Adenovirus (PCR) Not Detected (NotDetected) B. pertussis DNA (PCR) Not Detected (NotDetected) B.parapertussis DNA PCR Not Detected (NotDetected) C. pneumoniae DNA (PCR) Not Detected (NotDetected) Coronavirus OC43 (PCR) Not Detected (NotDetected) Coronavirus HKU1 (PCR) Not Detected (NotDetected) Coronavirus 229E (PCR) Not Detected (NotDetected) SARS-CoV-2 (PCR) Not Detected (NotDetected) Coronavirus NL63 (PCR) Not Detected (NotDetected) Human Metapneumovir PCR Not Detected (NotDetected) Influenza Type A (PCR) Not Detected (NotDetected) Influenza Type B (PCR) Not Detected (NotDetected) M. pneumoniae (PCR) Not Detected (NotDetected) Parainfluenza 1 (PCR) Not Detected (NotDetected) Parainfluenza 2 (PCR) Not Detected (NotDetected) Parainfluenza 3 (PCR) Not Detected (NotDetected) Parainfluenza 4 (PCR) Not Detected (NotDetected) RSV (PCR) Not Detected (NotDetected) Entero/Rhino (PCR) Not Detected (NotDetected) 07/05/23 07/05/23 Range/Units 22:00 22:37 WBC (4.8-10.8) K/ul RBC (4.20-5.40) M/uL Hgb (12.0-16.0) g/dl Hct (37.0-47.0) % MCV (80.0-100.0) fL MCH (25.0-34.0) pg MCHC (32.0-36.0) g/dL RDW Std Deviation (36.4-46.3) fL RDW Coeff of Charly (11.5-14.5) % Plt Count (130-400) K/uL MPV (9.4-12.4) fL Immature Gran % (Auto) % Neut % (Auto) % Lymph % (Auto) % [place] % (Auto) % Eos % (Auto) % Baso % (Auto) % Neut # (Auto) (1.40-6.50) K/uL Lymph # (Auto) (1.20-3.40) K/uL [place] # (Auto) (0.11-0.59) K/uL Eos # (Auto) (0.00-0.50) K/uL Baso # (Auto) (0.00-0.20) K/uL Immature Gran # (Auto) (0.01-0.20) K/uL PT (9.0-12.0) Seconds INR (0.9-1.1) APTT (21-31) Seconds PTT Ratio Sodium (136-145) mmol/L Potassium (3.5-5.1) mmol/L Chloride (98-107) mmol/L Carbon Dioxide (21-32) mmol/L Anion Gap (3-11) BUN (6-23) mg/dl Creatinine (0.6-1.2) mg/dl Est Cr Clr Drug Dosing ml/min Est GFR ( Amer) ml/min Est GFR (Non-Af Amer) ml/min BUN/Creatinine Ratio (10-20) Glucose (70-99(Fasting)) mg/dl POC Glucose (70-99) mg/dl Lactate (0.4-2.0) mmol/L Calcium (8.6-10.3) mg/dl Phosphorus (2.5-4.9) mg/dl Magnesium (1.7-2.4) mg/dl Total Bilirubin (0.2-1.0) mg/dl AST (13-39) U/L ALT (7-52) U/L Alkaline Phosphatase (34-104) U/L Troponin I High Sens (0-14) pg/ml Total Protein (6.0-8.3) gm/dl Albumin (3.4-5.0) gm/dl Globulin (2.5-4.0) gm/dl Albumin/Globulin Ratio (0.9-2) Procalcitonin < 0.05 (0-0.5) ng/ml Urine Color [place] Urine Appearance Cloudy A (Clear) Urine pH 7.5 (4.5-7.5) Ur Specific [place] > 1.045 H (1.000-1.030) Urine Protein Trace H (Negative) Urine Glucose (UA) Trace H (Negative) Urine Ketones Negative (Negative) Urine Blood 1+ H (Negative) Urine Nitrite Negative (Negative) Urine Bilirubin Negative (Negative) Urine Urobilinogen Negative (Negative) Ur Leukocyte Esterase 2+ H (Negative) Urine WBC (Auto) >30 H (0-5) /hpf Urine RBC (Auto) 0-4 (0-4) /hpf U Hyaline Cast (Auto) 0 (0-5) /lpf U Epithel Cells (Auto) 5-10 H (0-5) /lpf Urine Bacteria (Auto) 4+ H (Negative) Urine Yeast Not Reportable Adenovirus (PCR) (NotDetected) B. pertussis DNA (PCR) (NotDetected) B.parapertussis DNA PCR (NotDetected) C. pneumoniae DNA (PCR) (NotDetected) Coronavirus OC43 (PCR) (NotDetected) Coronavirus HKU1 (PCR) (NotDetected) Coronavirus 229E (PCR) (NotDetected) SARS-CoV-2 (PCR) (NotDetected) Coronavirus NL63 (PCR) (NotDetected) Human Metapneumovir PCR (NotDetected) Influenza Type A (PCR) (NotDetected) Influenza Type B (PCR) (NotDetected) M. pneumoniae (PCR) (NotDetected) Parainfluenza 1 (PCR) (NotDetected) Parainfluenza 2 (PCR) (NotDetected) Parainfluenza 3 (PCR) (NotDetected) Parainfluenza 4 (PCR) (NotDetected) RSV (PCR) (NotDetected) Entero/Rhino (PCR) (NotDetected) Administered Medications Discontinued Medications Sodium Chloride (Nss) 1,000 mls @ 999 mls/hr IV .Q1H1M ONE Stop: 07/05/23 22:22 Last Infusion: 07/05/23 23:09 Dose: Infused Documented By: Admin: 07/05/23 22:00 Dose: 999 mls/hr Documented By: ORLIN Acetaminophen (Ofirmev) 1,000 mg in 100 mls @ 400 mls/hr IV NOW STA Stop: 07/05/23 22:15 Last Infusion: 07/05/23 23:09 Dose: Infused Documented By: Admin: 07/05/23 22:37 Dose: 400 mls/hr Documented By: ORLIN Ceftriaxone Sodium (Rocephin) 2,000 mg in 50 mls @ 100 mls/hr IV NOW STA Stop: 07/05/23 23:45 Last Admin: 07/05/23 23:52 Dose: 100 mls/hr Documented By: SERGIO Ioversol (Optiray 320 125ml) 117 ml IV ONCE ONE Stop: 07/05/23 21:38 Last Admin: 07/05/23 21:37 Dose: 117 ml Documented By: AL Imaging Data Radiologist's Impression: Chest X-Ray 07/05/23 21:22 SINGLE VIEW CHEST CLINICAL HISTORY: Neurological deficit. Stroke like symptoms FINDINGS: An AP, portable, upright chest radiograph is compared to study dated 09/26/2022. The examination is degraded by portable technique and patient rotation. The heart is enlarged. The pulmonary vasculature is noncongested. Chronic interstitial thickening is similar to previous. Mild atelectasis is seen at the lung bases. The lungs and pleural spaces are otherwise clear. No pneumothorax is seen. The skeletal structures are osteopenic. The bony thorax is grossly intact. Arthritic change is seen in the shoulders. IMPRESSION: Cardiomegaly with no active disease in the chest. ACT 112: Negative or not required by law. Electronically signed by: Jv Carrasquillo M.D. 07/05/2023 9:[address] 07/05/23 21:22 CR Exam(s): CT HEAD Without Contrast EXAM: CT Head Without Intravenous Contrast CLINICAL HISTORY: Reason for exam: neuro deficit, acute stroke suspected. TECHNIQUE: Axial computed tomography images of the head/brain without intravenous contrast. Automated exposure control was utilized for the study. A dose lowering technique was utilized adhering to the principles of ALARA. COMPARISON: None. FINDINGS: Brain: Mild to moderate generalized brain atrophy. Decreased attenuation within the deep white matter compatible with microangiopathic disease. No hemorrhage. Ventricles: Unremarkable. No ventriculomegaly. Bones/joints: Unremarkable. No acute fracture. Soft tissues: Unremarkable. Sinuses: Unremarkable as visualized. No acute sinusitis. Mastoid air cells: Unremarkable as visualized. No mastoid effusion. IMPRESSION: Chronic changes as described. No acute intracranial hemorrhage or space-occupying lesion. Communications: Call Doctor Stroke Electronically signed by: Joann Perez MD 07/05/23 21:53 PM Head CTA 07/05/23 21:22 CR Exam(s): CTA HEAD With Contrast IV Amt: 117ml EXAM: CT Angiography Head With Intravenous Contrast CLINICAL HISTORY: Reason for exam: neuro deficit, acute stroke suspected. TECHNIQUE: Axial computed tomographic angiography images of the head with intravenous contrast. Automated exposure control was utilized for the study. A dose lowering technique was utilized adhering to the principles of ALARA. MIP reconstructed images were created and reviewed. CONTRAST: Patient received 117ml of IV contrast COMPARISON: None. FINDINGS: Right internal carotid artery: Minimal calcified atherosclerotic disease of the cavernous portion of the right internal carotid artery with no stenosis or occlusion. No aneurysm. Right anterior cerebral artery: Unremarkable. No occlusion or significant stenosis. No aneurysm. Right middle cerebral artery: Unremarkable. No occlusion or significant stenosis. No aneurysm. Right posterior cerebral artery: Unremarkable. No occlusion or significant stenosis. No aneurysm. Right vertebral artery: Unremarkable as visualized. Left internal carotid artery: Minimal calcified atherosclerotic disease of the cavernous portion of the left internal carotid artery with no stenosis or occlusion. No aneurysm. Left anterior cerebral artery: Unremarkable. No occlusion or significant stenosis. No aneurysm. Left middle cerebral artery: Unremarkable. No occlusion or significant stenosis. No aneurysm. Left posterior cerebral artery: Unremarkable. No occlusion or significant stenosis. No aneurysm. Left vertebral artery: Unremarkable as visualized. Basilar artery: Unremarkable. No occlusion or significant stenosis. No aneurysm. 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 Communications: Call Doctor Stroke Electronically signed by: Joann Perez MD 07/05/23 21:59 PM Neck CTA 07/05/23 21:22 CR Exam(s): CTA NECK With Contrast IV Amt: 117 EXAM: CT Angiography Neck With Intravenous Contrast CLINICAL HISTORY: Reason for exam: neuro deficit, acute stroke suspected. TECHNIQUE: Routine carotid CT angiography protocol was performed with intravenous contrast. NASCET criteria using the distal ICAs for comparison were used for evaluation of stenoses. Automated exposure control was utilized for the study. A dose lowering technique was utilized adhering to the principles of ALARA. MIP reconstructed images were created and reviewed. CONTRAST: Patient received 117 of IV contrast COMPARISON: None. FINDINGS: VASCULATURE: Right common carotid artery: Unremarkable. No occlusion or significant stenosis. No dissection. Right internal carotid artery: Minimal calcified plaque at the right carotid bulb. Extracranial segment is patent with no occlusion or significant stenosis. No dissection. Right external carotid artery: Unremarkable. No occlusion. Right vertebral artery: Unremarkable. No occlusion or significant stenosis. No dissection. Left common carotid artery: Unremarkable. No occlusion or significant stenosis. No dissection. Left internal carotid artery: Unremarkable. Extracranial segment is patent with no occlusion or significant stenosis. No dissection. Left external carotid artery: Unremarkable. No occlusion. Left vertebral artery: Unremarkable. No occlusion or significant stenosis. No dissection. Aorta: Mild calcified disc disease throughout the aortic arch with no aneurysm or dissection. NECK: Bones/joints: Unremarkable. No acute fracture. Soft tissues: Unremarkable. Lung apices: Lung ABCs revealed mild vascular crowding. CAROTID STENOSIS REFERENCE USING NASCET CRITERIA: % ICA stenosis = (1 - narrowest ICA diameter/diameter of distal cervical ICA) x 100. Mild - <50% stenosis. Moderate - 50-69% stenosis. Severe - 70-94% stenosis. Near occlusion - 95-99% stenosis. Occluded - 100% stenosis. IMPRESSION: Negative CT angiogram of the neck with no focal stenosis, occlusion or dissection involving the bilateral carotid and vertebral arteries. Communications: Call Doctor Stroke Electronically signed by: Joann Perez MD 07/05/23 21:55 PM Discharge Plan Visit Data Chief Complaint: Altered Mental Status Stated Complaint: FALL, MENTAL STATUS CHANGE ED Provider: Rafi Archuleta Discharge Problem: Metabolic encephalopathy, Complicated urinary tract infection, HTN (hypertension), Hypomagnesemia, Elevated lactic acid level, Elevated troponin Forms Stand Alone Forms: My [facility] [employer] Prescriptions Prescriptions: No Action (DME) blood-glucose meter [OneTouch Ultra2 Meter] [facility] See Rx Instructions .ROUTE .MEDSUPPLY Qty: 1 0RF Rx Instructions: Test blood sugars 4 times a day (DME) OneTouch Ultra Blue Test Strip Strip See Dose Instructions .ROUTE .MEDSUPPLY Qty: 400 3RF Rx Instructions: test 4 times daily (DME) lancets [OneTouch UltraSoft Lancets] [facility] See Dose Instructions .ROUTE .MEDSUPPLY Qty: 400 3RF Dose Instruction: As directed Rx Instructions: Testing 4 times daily (DME) [facility] See [facility]ructions .Route Qty: 1 0RF Rx Instructions: As directed (DME) [facility] See Rx Instructions .Route Qty: 1 0RF Rx Instructions: Motorized Scooter loratadine [Claritin] 10 mg tablet 10 mg PO DAILY Qty: 90 1RF (DME) pen needle, diabetic [BD Ultra-Fine Araceli Pen Needle] 32 gauge x 5/32" needle See Dose Instructions .ROUTE .MEDSUPPLY Qty: 200 3RF Rx Instructions: use 2 needles daily Ozempic 0.25 mg or 0.5 mg (2 mg/3 mL) pen injector 0.5 mg subcut Q7D 30 Days Qty: 3 1RF omeprazole 40 mg capsule,delayed release(DR/EC) See Rx Instructions .ROUTE .COMPLEX Qty: 90 1RF Dose Instruction: TAKE ONE CAPSULE BY MOUTH EVERY DAY Rx Instructions: TAKE ONE CAPSULE BY MOUTH EVERY DAY oxybutynin chloride 5 mg tablet See Rx Instructions .ROUTE .COMPLEX Qty: 270 1RF Rx Instructions: Take 1 tab PO in AM, 2 tabs PO qhs; cephalexin 500 mg capsule 2,000 mg PO ONCE Qty: 4 1RF Rx Instructions: Take dose 30-60 min prior to dental care carvedilol 6.25 mg tablet 6.25 mg PO BID Qty: 180 1RF Rx Instructions: for high blood pressure pregabalin 150 mg capsule 150 mg PO BID Qty: 60 0RF duloxetine 60 mg capsule,delayed release(DR/EC) 60 mg PO BID Qty: 60 5RF insulin degludec [Tresiba FlexTouch U-100] 100 unit/mL (3 mL) insulin pen 50 unit SUBCUT HS 90 Days Qty: 45 1RF cholecalciferol (vitamin D3) 50 mcg (2,000 unit) capsule 2,000 unit PO QAM tamsulosin 0.4 mg capsule 0.4 mg PO DAILY Qty: 30 2RF omega [id number]-fish oil [Fish Oil] 1,000 mg (120 mg-180 mg) Capsule 1,000 mg PO HS aspirin 81 mg Tablet,Delayed Release (Dr/Ec) 81 mg PO HS calcitonin (salmon) 200 unit/actuation [place],Non-Aerosol 1 spray NA DAILY Qty: 3.7 0RF Women's 50 Plus Daily Formula 400 mcg-500 mg calcium-20 mcg Tablet 1 tab PO QAM acetaminophen 325 mg tablet 650 mg PO QID PRN (Reason: Pain) Referrals Referrals: Mer Jack DO [Primary Care Provider] - Discharge Problem: HTN (hypertension) Qualifiers: Hypertension type: unspecified Qualified Code(s): I10 - Essential (primary) hypertension
[2023-07-06] MEDS ORDERED: carvediloL 12.5 MG TAB PO ONE (00:38)
--- NOTE | 2023-07-06 00:48 | History & Physical Report ---
Date of Service July 06, 2023 Assessment & Plan (1) Metabolic encephalopathy: (2) HTN (hypertension): (3) Confusion: (4) Elevated troponin: (5) Hypomagnesemia: (6) Complicated urinary tract infection: (7) CAD (coronary artery disease): (8) Ambulatory dysfunction: (9) Uncontrolled type 2 diabetes mellitus: (10) Diabetic peripheral neuropathy associated with type 2 diabetes mellitus: Plan Confusion/metabolic encephalopathy/complicated UTI- The patient will be admitted to telemetry for serial cardiac enzymes, serial EKG's, cardiac rhythm monitoring and a 2-D echocardiogram with Dopplers. CT head negative, CTA head and neck negative Urinalysis positive for infection Patient has history of pansensitive E. coli in urine and blood on 09/15/2022, and in urine only on 10/21/22 Follow urine culture and sensitivity Continue ceftriaxone 2 g IV every 24 hours begun in the ED Patient is status post 1 L normal saline fluid bolus in the ED Placed on NSS + KCl 20 mEq at 80 mL/h x 1 L Status post acetaminophen 1 g IV from the ED Lactic acid 2.6 upon admission, with follow-up pending Elevated troponin/CAD/hypertension- Troponin 19.5 on admission, with follow-up pending The patient will be admitted to telemetry for serial cardiac enzymes, serial EKG's, cardiac rhythm monitoring and a 2-D echocardiogram with Dopplers. Patient missed her dosings of carvedilol over the past 24 hours Give carvedilol 12.5 mg p.o. now, and then continue at 6.25 mg p.o. twice daily starting in the a.m. Continue aspirin Diabetes mellitus- Hold semaglutide Continue insulin degludec but decrease from 50 units to 25 units subcu at bedtime Placed on Accu-Cheks with NovoLog SSI Hypomagnesemia- Magnesium 1.5 on admission Give 2 g IV, and recheck laboratories in a.m. History of Present Illness Chief Complaint: The patient presents to the emergency department with family due to worsening confusion over the past several days, similar to hospitalization earlier this year when she was found to have urinary tract infection and metabolic encephalopathy. Primary Care Provider: Mer Jack DO The patient is a 60-year-old female with a past medical history including complicated UTI, metabolic encephalopathy, hypertension, C. difficile diarrhea, CAD, diabetic neuropathy, diabetes mellitus, diabetic nephropathy, hyperlipidemia, diabetic peripheral neuropathy, RLS, and ambulatory dysfunction. She presents to the emergency department as noted above. Allergies Allergy/AdvReac Type Severity Reaction Status Date / Time tetanus toxoid, adsorbed Allergy Severe TROUBLE Verified 12/02/22 11:49 BREATHING Penicillins Allergy Intermediate ITCHINESS Verified 12/02/22 11:49 onion Allergy Unknown ? Verified 12/02/22 11:49 REACTION, ALLERGY SHOWN ON SKIN TEST orange Allergy Unknown PATCH Verified 12/02/22 11:49 TESTED HIVES REACTION atorvastatin [From Lipitor] AdvReac Intermediate Headache Verified 12/02/22 11:49 meperidine AdvReac Intermediate NAUSEA AND Verified 12/02/22 11:49 VOMITING metformin AdvReac Intermediate diarrhea Verified 12/02/22 11:49 morphine AdvReac Intermediate Gets wild Verified 12/02/22 11:49 and has the shakes oxycodone AdvReac Intermediate Nausea/Vomi Verified 12/02/22 11:49 ting tomato AdvReac Intermediate COUGHING Verified 12/02/22 11:49 sulfamethoxazole AdvReac Unknown Unknown Verified 12/02/22 11:49 [From Bactrim] trimethoprim [From Bactrim] AdvReac Unknown Unknown Verified 12/02/22 11:49 Home Medications Medication Instructions Recorded Confirmed Type omega 9-csg-kdp-fish oil 1,000 mg 1,000 mg PO HS 06/20/18 07/05/23 History (120 mg-180 mg) capsule (Fish Oil) OneTouch Ultra2 Meter #1 ea 09/18/20 12/02/22 Rx (blood-glucose meter) blood sugar diagnostic (OneTouch #400 ea 09/19/20 12/02/22 Rx Ultra Blue Test Strip) lancets (OneTouch UltraSoft #400 ea 09/19/20 12/02/22 Rx Lancets) cholecalciferol (vitamin D3) 50 2,000 unit PO QAM 05/15/21 07/05/23 History mcg (2,000 unit) capsule Wheeled Walker #1 ea 07/09/21 08/13/22 Rx aspirin 81 mg tablet,delayed 81 mg PO HS 04/05/22 07/05/23 History release Scooter #1 ea 06/02/22 10/21/22 Rx calcitonin (salmon) 200 1 spray NA DAILY #3.7 mL 07/07/22 07/05/23 Rx unit/actuation nasal spray acetaminophen 325 mg tablet 650 mg PO QID PRN Pain 09/15/22 07/05/23 History rnexcteq-lxq-udnme ac 400 1 tab PO QAM 09/15/22 07/05/23 History mcg-calcium carb 500 mg-vit K1 20 mcg tablet (Women's 50 Plus Daily Formula) tamsulosin 0.4 mg capsule 0.4 mg PO DAILY #30 caps 11/01/22 07/05/23 Rx loratadine 10 mg tablet (Claritin) 10 mg PO DAILY #90 tabs 12/14/22 07/05/23 Rx BD Ultra-Fine Araceli Pen Needle 32 #200 ea 04/06/23 Rx gauge x 5/32" (pen needle, diabetic) semaglutide 0.25 mg or 0.5 mg (2 0.5 mg (0.736 mL) subcut Q7D 30 04/15/23 07/05/23 Rx mg/3 mL) subcutaneous pen injector days #3 mL (Ozempic) omeprazole 40 mg capsule,delayed See Rx Instructions .Route 05/09/23 07/05/23 Rx release .COMPLEX #90 caps oxybutynin chloride 5 mg tablet See Rx Instructions .Route 05/09/23 07/05/23 Rx .COMPLEX #270 tabs cephalexin 500 mg capsule 2,000 mg (4 x 500 mg) PO ONCE #4 05/19/23 07/05/23 Rx caps carvedilol 6.25 mg tablet 6.25 mg PO BID #180 tabs 06/08/23 07/05/23 Rx duloxetine 60 mg capsule,delayed 60 mg PO BID #60 caps 06/12/23 07/05/23 Rx release pregabalin 150 mg capsule 150 mg PO BID #60 caps 06/12/23 07/05/23 Rx insulin degludec 100 unit/mL (3 50 unit (0.5 mL) subcut HS 90 days 06/17/2312/21 Rx mL) subcutaneous pen (Tresiba #45 mL FlexTouch U-100 insulin) Past Med/Surg History Medical History Acute alteration in mental status Acute UTI (urinary tract infection) Morbid obesity with BMI of 45.0-49.9, adult Acute encephalopathy Kidney stones Closed compression fracture of L1 vertebra Chest pain Nail complaint Hallux valgus (acquired), left foot Acquired hallux valgus of right foot Acquired claw toe of right foot Acquired claw toe of left foot Diabetes mellitus with diabetic polyneuropathy Urinary incontinence History of cholecystitis Diverticulitis Hypertriglyceridemia Microalbuminuria Type 2 diabetes mellitus with complication Vitamin D deficiency History of anesthesia reaction PT STATES SHE IS SLOW TO WAKE, NO DOCUMENTED ADVERSE REACTION Anemia Diverticulitis Colitis 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 RLS (restless legs syndrome) Osteoarthritis GERD (gastroesophageal reflux disease) Right knee DJD HTN (hypertension) Surgical History History of cholecystectomy 12/28/17 History of total knee replacement R 2015, L 2016 S/P tonsillectomy S/P partial thyroidectomy S/P total hysterectomy History of total left hip arthroplasty 2007 S/P inguinal hernia repair Family History Mother Depression Diabetes Gallbladder disease Hypertension Lung cancer Alzheimer disease Father Lung cancer Bone cancer Grandmother Myocardial infarction Family/Other Breast cancer cousin Ovarian cancer Denies family history of Prostate cancer Colorectal cancer Social History Smoking Status: Unknown if ever smoked Cigarettes Per Day: TRIED OCC. 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 Beliefs That Will Affect Care: None marital status: Current Living Situation: Spouse current occupational status: retired How many Children do You have: 2 Feels Safe at Home: Yes Diet: regular Diet Comment: regular caffeine: Yes during the past year weight has: remained stable Dental Care, Regularly: Yes Physical Activity Frequency: 1-2 Times per Week Seatbelt Use: always Sunscreen Use: No Assistive Devices: Walker Review of Systems Review of Systems: The patient denies chest pain, palpitations, shortness of breath, dyspnea on exertion, cough, lower extremity swelling, sore throat, fevers, chills, sweats, nausea, vomiting, diarrhea , constipation, abdominal pain, pelvic pain, blood in urine or stool, dysuria, urinary frequency or urgency, lightheadedness, dizziness, headache, loss of consciousness, rash, abnormal bruising or bleeding, focal weakness, numbness or tingling in arms, generalized arthralgias or myalgias, back or neck pain, or night sweats. The review of systems is otherwise negative other than for that already noted above, and at least 10 systems have been reviewed. Physical Exam Physical Exam: The patient is awake, pleasant but mildly confused, well developed and well nourished, normocephalic and atraumatic, lying in bed and in no acute distress. HEENT--PERRL, EOMI, mucous membranes and oropharynx mildly dry. Neck--supple. No JVD. No bruits. Thyroid normal, trachea midline, no adenopathy. Heart--normal S1 and S2. No murmurs, rubs or gallops. Lungs--clear bilaterally, no respiratory distress, no accessory muscle use. Abdomen--normal bowel sounds and soft. Nontender. Nondistended. Morbidly obese Extremities--no cyanosis or clubbing. No edema. Dermatologic--normal skin turgor, normal color, no abnormal lymph nodes, no rash. Neurologic--cranial nerves II through XII grossly intact. Rheumatologic-- Limited exam due to body habitus Psychiatric--mildly confused Results & Data Results & Data Vital Signs (Past 12 Hours) Vital Signs Temp Pulse Resp BP Pulse Ox O2 Del Method 07/06/23 00:00 72 12 194/119 H 95 07/05/23 23:30 82 12 198/103 H 94 07/05/23 23:11 67 14 183/87 H 95 07/05/23 22:51 192/95 H 07/05/23 22:51 80 17 07/05/23 22:50 75 15 97 07/05/23 22:40 223/108 H 07/05/23 22:40 77 13 95 07/05/23 22:30 225/91 H 07/05/23 22:30 73 20 95 07/05/23 22:22 80 16 97 07/05/23 22:22 196/89 H 07/05/23 22:20 81 20 96 07/05/23 22:10 225/111 H 07/05/23 22:10 84 14 07/05/23 22:01 73 20 07/05/23 22:01 179/136 H 07/05/23 22:00 97 H 19 07/05/23 21:50 246/131 H 07/05/23 21:50 86 18 07/05/23 21:48 36.8 C 87 18 97 Room Air 07/05/23 21:46 87 07/05/23 21:43 89 17 97 07/05/23 21:42 237/86 H Laboratory Results Laboratory Results WBC 13.95 K/ul (4.8-10.8) H 07/05/23 21:47 RBC 5.11 M/uL (4.20-5.40) 07/05/23 21:47 Hgb 15.7 g/dl (12.0-16.0) 07/05/23 21:47 Hct 44.9 % (37.0-47.0) 07/05/23 21:47 MCV 87.9 fL (80.0-100.0) 07/05/23 21:47 MCH 30.7 pg (25.0-34.0) 07/05/23 21:47 MCHC 35.0 g/dL (32.0-36.0) 07/05/23 21:47 RDW Std Deviation 41.9 fL (36.4-46.3) 07/05/23 21:47 RDW Coeff of Charly 13.1 % (11.5-14.5) 07/05/23 21:47 Plt Count 197 K/uL (130-400) 07/05/23 21:47 MPV 11.6 fL (9.4-12.4) 07/05/23 21:47 Immature Gran % (Auto) 0.5 % 07/05/23 21:47 Neut % (Auto) 77.3 % 07/05/23 21:47 Lymph % (Auto) 16.7 % 07/05/23 21:47 Th[place]morton % (Auto) 5.2 % 07/05/23 21:47 Eos % (Auto) 0.1 % 07/05/23 21:47 Baso % (Auto) 0.2 % 07/05/23 21:47 Neut # (Auto) 10.78 K/uL (1.40-6.50) H 07/05/23 21:47 Lymph # (Auto) 2.33 K/uL (1.20-3.40) 07/05/23 21:47 Throckmorton # (Auto) 0.73 K/uL (0.11-0.59) H 07/05/23 21:47 Eos # (Auto) 0.01 K/uL (0.00-0.50) 07/05/23 21:47 Baso # (Auto) 0.03 K/uL (0.00-0.20) 07/05/23 21:47 Immature Gran # (Auto) 0.07 K/uL (0.01-0.20) 07/05/23 21:47 PT 12.2 Seconds (9.0-12.0) H 07/05/23 21:47 INR 1.1 (0.9-1.1) 07/05/23 21:47 APTT 25 Seconds (21-31) 07/05/23 21:47 PTT Ratio 0.9 07/05/23 21:47 Sodium 132 mmol/L (136-145) L 07/05/23 21:47 Potassium 3.5 mmol/L (3.5-5.1) 07/05/23 21:47 Chloride 95 mmol/L (98-107) L 07/05/23 21:47 Carbon Dioxide 28 mmol/L (21-32) 07/05/23 21:47 Anion Gap 9 (3-11) 07/05/23 21:47 BUN 8 mg/dl (6-23) 07/05/23 21:47 Creatinine 0.61 mg/dl (0.6-1.2) 07/05/23 21:47 Est Cr Clr Drug Dosing 102.0 ml/min 07/05/23 21:47 Est GFR ( Amer) 108.0 ml/min 07/05/23 21:47 Est GFR (Non-Af Amer) 93.1 ml/min 07/05/23 21:47 BUN/Creatinine Ratio 13.1 (10-20) 07/05/23 21:47 Glucose 273 mg/dl (70-99(Fasting)) H 07/05/23 21:47 POC Glucose 247 mg/dl (70-99) H 07/05/23 21:41 Lactate 2.6 mmol/L (0.4-2.0) H* 07/05/23 21:47 Calcium 8.8 mg/dl (8.6-10.3) 07/05/23 21:47 Phosphorus 2.9 mg/dl (2.5-4.9) 07/05/23 21:47 Magnesium 1.5 mg/dl (1.7-2.4) L 07/05/23 21:47 Total Bilirubin 1.1 mg/dl (0.2-1.0) H 07/05/23 21:47 AST 30 U/L (13-39) 07/05/23 21:47 ALT 20 U/L (7-52) 07/05/23 21:47 Alkaline Phosphatase 84 U/L (34-104) 07/05/23 21:47 Troponin I High Sens 19.5 pg/ml (0-14) H 07/05/23 21:47 Total Protein 6.9 gm/dl (6.0-8.3) 07/05/23 21:47 Albumin 3.5 gm/dl (3.4-5.0) 07/05/23 21:47 Globulin 3.4 gm/dl (2.5-4.0) 07/05/23 21:47 Albumin/Globulin Ratio 1.0 (0.9-2) 07/05/23 21:47 Procalcitonin < 0.05 ng/ml (0-0.5) 07/05/23 22:37 Urine Color Leon 07/05/23 22:00 Urine Appearance Cloudy (Clear) A 07/05/23 22:00 Urine pH 7.5 (4.5-7.5) 07/05/23 22:00 Ur Specific [place] > 1.045 (1.000-1.030) H 07/05/23 22:00 Urine Protein Trace (Negative) H 07/05/23 22:00 Urine Glucose (UA) Trace (Negative) H 07/05/23 22:00 Urine Ketones Negative (Negative) 07/05/23 22:00 Urine Blood 1+ (Negative) H 07/05/23 22:00 Urine Nitrite Negative (Negative) 07/05/23 22:00 Urine Bilirubin Negative (Negative) 07/05/23 22:00 Urine Urobilinogen Negative (Negative) 07/05/23 22:00 Ur Leukocyte Esterase 2+ (Negative) H 07/05/23 22:00 Urine WBC (Auto) >30 /hpf (0-5) H 07/05/23 22:00 Urine RBC (Auto) 0-4 /hpf (0-4) 07/05/23 22:00 U Hyaline Cast (Auto) 0 /lpf (0-5) 07/05/23 22:00 U Epithel Cells (Auto) 5-10 /lpf (0-5) H 07/05/23 22:00 Urine Bacteria (Auto) 4+ (Negative) H 07/05/23 22:00 Urine Yeast Not Reportable 07/05/23 22:00 Adenovirus (PCR) Not Detected (NotDetected) 07/05/23 21:58 B. pertussis DNA (PCR) Not Detected (NotDetected) 07/05/23 21:58 B.parapertussis DNA PCR Not Detected (NotDetected) 07/05/23 21:58 C. pneumoniae DNA (PCR) Not Detected (NotDetected) 07/05/23 21:58 Coronavirus OC43 (PCR) Not Detected (NotDetected) 07/05/23 21:58 Coronavirus HKU1 (PCR) Not Detected (NotDetected) 07/05/23 21:58 Coronavirus 229E (PCR) Not Detected (NotDetected) 07/05/23 21:58 SARS-CoV-2 (PCR) Not Detected (NotDetected) 07/05/23 21:58 Coronavirus NL63 (PCR) Not Detected (NotDetected) 07/05/23 21:58 Human Metapneumovir PCR Not Detected (NotDetected) 07/05/23 21:58 Influenza Type A (PCR) Not Detected (NotDetected) 07/05/23 21:58 Influenza Type B (PCR) Not Detected (NotDetected) 07/05/23 21:58 M. pneumoniae (PCR) Not Detected (NotDetected) 07/05/23 21:58 Parainfluenza 1 (PCR) Not Detected (NotDetected) 07/05/23 21:58 Parainfluenza 2 (PCR) Not Detected (NotDetected) 07/05/23 21:58 Parainfluenza 3 (PCR) Not Detected (NotDetected) 07/05/23 21:58 Parainfluenza 4 (PCR) Not Detected (NotDetected) 07/05/23 21:58 RSV (PCR) Not Detected (NotDetected) 07/05/23 21:58 Entero/Rhino (PCR) Not Detected (NotDetected) 07/05/23 21:58 Impressions Chest X-Ray 07/05/23 21:22 SINGLE VIEW CHEST CLINICAL HISTORY: Neurological deficit. Stroke like symptoms FINDINGS: An AP, portable, upright chest radiograph is compared to study dated 09/26/2022. The examination is degraded by portable technique and patient rotation. The heart is enlarged. The pulmonary vasculature is noncongested. Chronic interstitial thickening is similar to previous. Mild atelectasis is seen at the lung bases. The lungs and pleural spaces are otherwise clear. No pneumothorax is seen. The skeletal structures are osteopenic. The bony thorax is grossly intact. Arthritic change is seen in the shoulders. IMPRESSION: Cardiomegaly with no active disease in the chest. ACT 112: Negative or not required by law. Electronically signed by: Jv Carrasquillo M.D. 07/05/2023 9:[address] 07/05/23 21:22 CR Exam(s): CT HEAD Without Contrast EXAM: CT Head Without Intravenous Contrast CLINICAL HISTORY: Reason for exam: neuro deficit, acute stroke suspected. TECHNIQUE: Axial computed tomography images of the head/brain without intravenous contrast. Automated exposure control was utilized for the study. A dose lowering technique was utilized adhering to the principles of ALARA. COMPARISON: None. FINDINGS: Brain: Mild to moderate generalized brain atrophy. Decreased attenuation within the deep white matter compatible with microangiopathic disease. No hemorrhage. Ventricles: Unremarkable. No ventriculomegaly. Bones/joints: Unremarkable. No acute fracture. Soft tissues: Unremarkable. Sinuses: Unremarkable as visualized. No acute sinusitis. Mastoid air cells: Unremarkable as visualized. No mastoid effusion. IMPRESSION: Chronic changes as described. No acute intracranial hemorrhage or space-occupying lesion. Communications: Call Doctor Stroke Electronically signed by: Joann Perez MD 07/05/23 21:53 PM Head CTA 07/05/23 21:22 CR Exam(s): CTA HEAD With Contrast IV Amt: 117ml EXAM: CT Angiography Head With Intravenous Contrast CLINICAL HISTORY: Reason for exam: neuro deficit, acute stroke suspected. TECHNIQUE: Axial computed tomographic angiography images of the head with intravenous contrast. Automated exposure control was utilized for the study. A dose lowering technique was utilized adhering to the principles of ALARA. MIP reconstructed images were created and reviewed. CONTRAST: Patient received 117ml of IV contrast COMPARISON: None. FINDINGS: Right internal carotid artery: Minimal calcified atherosclerotic disease of the cavernous portion of the right internal carotid artery with no stenosis or occlusion. No aneurysm. Right anterior cerebral artery: Unremarkable. No occlusion or significant stenosis. No aneurysm. Right middle cerebral artery: Unremarkable. No occlusion or significant stenosis. No aneurysm. Right posterior cerebral artery: Unremarkable. No occlusion or significant stenosis. No aneurysm. Right vertebral artery: Unremarkable as visualized. Left internal carotid artery: Minimal calcified atherosclerotic disease of the cavernous portion of the left internal carotid artery with no stenosis or occlusion. No aneurysm. Left anterior cerebral artery: Unremarkable. No occlusion or significant stenosis. No aneurysm. Left middle cerebral artery: Unremarkable. No occlusion or significant stenosis. No aneurysm. Left posterior cerebral artery: Unremarkable. No occlusion or significant stenosis. No aneurysm. Left vertebral artery: Unremarkable as visualized. Basilar artery: Unremarkable. No occlusion or significant stenosis. No aneurysm. 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 Communications: Call Doctor Stroke Electronically signed by: Joann Perez MD 07/05/23 21:59 PM Neck CTA 07/05/23 21:22 CR Exam(s): CTA NECK With Contrast IV Amt: 117 EXAM: CT Angiography Neck With Intravenous Contrast CLINICAL HISTORY: Reason for exam: neuro deficit, acute stroke suspected. TECHNIQUE: Routine carotid CT angiography protocol was performed with intravenous contrast. NASCET criteria using the distal ICAs for comparison were used for evaluation of stenoses. Automated exposure control was utilized for the study. A dose lowering technique was utilized adhering to the principles of ALARA. MIP reconstructed images were created and reviewed. CONTRAST: Patient received 117 of IV contrast COMPARISON: None. FINDINGS: VASCULATURE: Right common carotid artery: Unremarkable. No occlusion or significant stenosis. No dissection. Right internal carotid artery: Minimal calcified plaque at the right carotid bulb. Extracranial segment is patent with no occlusion or significant stenosis. No dissection. Right external carotid artery: Unremarkable. No occlusion. Right vertebral artery: Unremarkable. No occlusion or significant stenosis. No dissection. Left common carotid artery: Unremarkable. No occlusion or significant stenosis. No dissection. Left internal carotid artery: Unremarkable. Extracranial segment is patent with no occlusion or significant stenosis. No dissection. Left external carotid artery: Unremarkable. No occlusion. Left vertebral artery: Unremarkable. No occlusion or significant stenosis. No dissection. Aorta: Mild calcified disc disease throughout the aortic arch with no aneurysm or dissection. NECK: Bones/joints: Unremarkable. No acute fracture. Soft tissues: Unremarkable. Lung apices: Lung ABCs revealed mild vascular crowding. CAROTID STENOSIS REFERENCE USING NASCET CRITERIA: % ICA stenosis = (1 - narrowest ICA diameter/diameter of distal cervical ICA) x 100. Mild - <50% stenosis. Moderate - 50-69% stenosis. Severe - 70-94% stenosis. Near occlusion - 95-99% stenosis. Occluded - 100% stenosis. IMPRESSION: Negative CT angiogram of the neck with no focal stenosis, occlusion or dissection involving the bilateral carotid and vertebral arteries. Communications: Call Doctor Stroke Electronically signed by: Joann Perez MD 07/05/23 21:55 PM Code Status & VTE Plan Code Status Full code VTE Prophylaxis Plan VTE Prophylaxis will be ordered: Yes PG Care Time/CCT Total # of Minutes Spent Total Time Spent with Patient: Total time spent is greater than 50% in coordination of care (as documented) at patient's floor/unit and/or counseling patient: Coding Level of Care Code 25735 INT INP/OBS CARE 3/75MIN Diagnoses Metabolic encephalopathy G93.41 Essential hypertension I10 Hypertension type: unspecified Confusion R41.0 Elevated troponin R79.89 Hypomagnesemia E83.42 Complicated urinary tract infection N39.0 CAD (coronary artery disease) I25.10 Ambulatory dysfunction R26.2 Uncontrolled type 2 diabetes mellitus with hyperglycemia E11.65 Glycemic state: with hyperglycemia Diabetic peripheral neuropathy associated with type 2 diabetes mellitus E11.42 (2) HTN (hypertension) Hypertension type: unspecified Qualified Code(s): I10 - Essential (primary) hypertension (9) Uncontrolled type 2 diabetes mellitus Glycemic state: with hyperglycemia Qualified Code(s): E11.65 - Type 2 diabetes mellitus with hyperglycemia
[2023-07-06] MEDS ORDERED: METOPROLOL TARTRATE 1 MG/ML VIAL IV PRN (02:41)
[2023-07-06] MEDS ORDERED: GLUCOSE 10 TAB/TUBE PO PRN (02:59)
[2023-07-06] MEDS ORDERED: NSS + 20MEQ KCL 20 MEQ/1,000 ML BAG IV SCH (02:59)
[2023-07-06] MEDS ORDERED: ONDANSETRON INJ 2 MG/ML 2 ML VIAL IV PRN (02:59)
[2023-07-06] MEDS ORDERED: CARBOHYDRATES FOR HYPOGLYCEMIA PO PRN (02:59)
[2023-07-06] MEDS ORDERED: DEXTROSE 50% 50 ML SYRINGE IV PRN (02:59)
[2023-07-06] MEDS ORDERED: GLUCAGON FOR INJ 1 MG VIAL SQ PRN (02:59)
[2023-07-06] MEDS ORDERED: GLUCOSE 40% GEL 15 GM TUBE PO PRN (02:59)
[2023-07-06] MEDS: MAGNESIUM SULFATE / D5W 1 GM/100 ML BAG IV SCH ×2 (03:19→05:21)
[2023-07-06 05:42] LABS: Basophils # (auto) 0.03 K/uL (0.00-0.20); Basophils % (auto) 0.2 %; Eosinophils # (auto) 0.05 K/uL (0.00-0.50); Eosinophils % (auto) 0.4 %; Hematocrit (blood only) 44.2 % (37.0-47.0); Immature Granulocytes # (auto) 0.04 K/uL (0.01-0.20); Immature Granulocytes % (auto) 0.3 %; Lymphocytes # (auto) 3.42 K/uL (1.20-3.40); Lymphocytes % (auto) 27.5 %; Mean Corpuscular Hgb Conc 33.9 g/dL (32.0-36.0); Mean Corpuscular Volume 88.4 fL (80.0-100.0); Mean Platelet Volume 11.5 fL (9.4-12.4); Monocytes # (auto) 0.82 K/uL (0.11-0.59); Monocytes % (auto) 6.6 %; Neutrophils # (auto) 8.09 K/uL (1.40-6.50); Platelet Count 226 K/uL (130-400); RDW Coefficient of Variation 13.1 % (11.5-14.5); RDW Standard Deviation 42.4 fL (36.4-46.3); White Blood Count 12.45 K/ul (4.8-10.8)
[2023-07-06 05:58] LABS: Albumin Globulin Ratio 1.1 (0.9-2); Albumin Level 3.6 gm/dl (3.4-5.0); BUN Creatinine Ratio 12.1 (10-20); Bilirubin,Total 0.8 mg/dl (0.2-1.0); Calcium 9.1 mg/dl (8.6-10.3); Creatinine Clr Calc Pharmacy 107.3 ml/min; Est GFR (African American) 109.8 ml/min; Est GFR (Non-African American) 94.7 ml/min; Globulin 3.2 gm/dl (2.5-4.0); Potassium 3.1 mmol/L (3.5-5.1); Total Protein 6.8 gm/dl (6.0-8.3)
[2023-07-06] MEDS: HEPARIN SOD 5,000 UNIT/0.5 ML VIAL SQ SCH ×3 (06:11→21:33)
[2023-07-06] MEDS: PREGABALIN 150 MG CAP PO SCH ×2 (08:06→21:40)
[2023-07-06] MEDS: CHOLECALCIFEROL 1,000 UNITS 25 MCG TAB PO SCH (08:06)
[2023-07-06] MEDS: DULoxetine HCL 60 MG CAP PO SCH ×2 (08:07→21:29)
[2023-07-06] MEDS: CALCITONIN SALMON NA 200 IU/AC 3.7 ML BTL SCH (08:07)
[2023-07-06] MEDS: oxyBUTYnin chloride 5 MG TAB PO SCH ×2 (08:07→21:29)
[2023-07-06] MEDS: PANTOprazole 40 MG TAB PO SCH (08:07)
[2023-07-06] MEDS: CEROVITE ADV FORMULA TAB PO SCH (08:07)
[2023-07-06] MEDS: LORATADINE 10 MG TAB PO SCH (08:07)
[2023-07-06] MEDS: TAMSULOSIN HCL 0.4 MG CAP PO SCH (08:07)
[2023-07-06] MEDS: carvediloL 6.25 MG TAB PO SCH ×2 (08:07→21:29)
[2023-07-06 08:16] LABS: Estimated Average Glucose 171 mg/dl; Hemoglobin A1C 7.6 % (4.5-5.6)
[2023-07-06] MEDS: INSULIN ASPART PER UNIT CHARGE SC SCH ×4 (08:52→21:37)
--- NOTE | 2023-07-06 15:48 | Electrocardiogram Report ---
Test Reason : Blood Pressure : / mmHG Vent. Rate : 086 BPM Atrial Rate : 086 BPM P-R Int : 162 ms QRS Dur : 088 ms QT Int : 400 ms P-R-T Axes : -08 -26 064 degrees QTc Int : 478 ms Sinus rhythm with Premature atrial complexes with Aberrant conduction Moderate voltage criteria for LVH, may be normal variant ( R in aVL ) Nonspecific ST abnormality Abnormal ECG When compared with ECG of 26-SEP-2022 07:27, Aberrant conduction is now Present Non-specific change in ST segment in Anterior leads T wave amplitude has increased in Anterior leads QT has lengthened Confirmed by Kevin Stein ([id number]) on 07/06/2023 3:47:47 PM Referred By: REFERRED SELF Confirmed By:Kevin Stein
[2023-07-06] MEDS: cefTRIAXone SODIUM 2,000 MG in DEXTROSE 5 % MINI-B 50 ML IV SCH (21:29)
[2023-07-06] MEDS: ASPIRIN 81 MG ECTAB PO SCH (21:30)
[2023-07-06] MEDS: LANTUS PER UNIT CHARGE SQ SCH (21:40)
[2023-07-06] MEDS ORDERED: INFLUENZA VACCINE HIGH-DOSE (HD-IIV4) PF 65+ 0.7mL SYR IM ONE (22:02)
--- NOTE | 2023-07-06 22:26 | Communication Note ---
Date of Service: July 06, 2023 Patient no longer confused. AAOx3.
[2023-07-07] MEDS: HEPARIN SOD 5,000 UNIT/0.5 ML VIAL SQ SCH ×3 (05:14→22:01)
[2023-07-07 06:48] LABS: Basophils # (auto) 0.04 K/uL (0.00-0.20); Basophils % (auto) 0.4 %; Eosinophils # (auto) 0.17 K/uL (0.00-0.50); Eosinophils % (auto) 1.6 %; Hematocrit (blood only) 40.8 % (37.0-47.0); Hemoglobin 13.7 g/dl (12.0-16.0); Immature Granulocytes # (auto) 0.04 K/uL (0.01-0.20); Immature Granulocytes % (auto) 0.4 %; Lymphocytes # (auto) 4.75 K/uL (1.20-3.40); Lymphocytes % (auto) 44.2 %; Mean Corpuscular Hemoglobin 30.4 pg (25.0-34.0); Mean Corpuscular Hgb Conc 33.6 g/dL (32.0-36.0); Mean Corpuscular Volume 90.7 fL (80.0-100.0); Mean Platelet Volume 11.4 fL (9.4-12.4); Monocytes % (auto) 6.5 %; Neutrophils # (auto) 5.05 K/uL (1.40-6.50); Neutrophils % (auto) 46.9 %; Platelet Count 188 K/uL (130-400); RDW Coefficient of Variation 13.1 % (11.5-14.5); RDW Standard Deviation 43.4 fL (36.4-46.3); White Blood Count 10.75 K/ul (4.8-10.8)
[2023-07-07 07:03] LABS: Albumin Globulin Ratio 1.1 (0.9-2); Albumin Level 3.3 gm/dl (3.4-5.0); BUN Creatinine Ratio 15.9 (10-20); Bilirubin,Total 0.6 mg/dl (0.2-1.0); Calcium 8.9 mg/dl (8.6-10.3); Creatinine Clr Calc Pharmacy 90.1 ml/min; Est GFR (African American) 103.7 ml/min; Est GFR (Non-African American) 89.4 ml/min; Magnesium 1.8 mg/dl (1.7-2.4); Total Protein 6.3 gm/dl (6.0-8.3)
[2023-07-07] MEDS: PANTOprazole 40 MG TAB PO SCH (08:00)
[2023-07-07] MEDS: carvediloL 6.25 MG TAB PO SCH ×2 (08:00→22:00)
[2023-07-07] MEDS: CEROVITE ADV FORMULA TAB PO SCH (08:00)
[2023-07-07] MEDS: oxyBUTYnin chloride 5 MG TAB PO SCH ×2 (08:01→22:00)
[2023-07-07] MEDS: LORATADINE 10 MG TAB PO SCH (08:01)
[2023-07-07] MEDS: DULoxetine HCL 60 MG CAP PO SCH ×2 (08:01→22:00)
[2023-07-07] MEDS: TAMSULOSIN HCL 0.4 MG CAP PO SCH (08:01)
[2023-07-07] MEDS: CHOLECALCIFEROL 1,000 UNITS 25 MCG TAB PO SCH (08:01)
[2023-07-07] MEDS: PREGABALIN 150 MG CAP PO SCH ×2 (08:06→22:05)
[2023-07-07] MEDS: INSULIN ASPART PER UNIT CHARGE SC SCH ×4 (08:08→21:00)
[2023-07-07] MEDS: CALCITONIN SALMON NA 200 IU/AC 3.7 ML BTL SCH (13:32)
--- NOTE | 2023-07-07 14:21 | Electrocardiogram Report ---
Test Reason : Blood Pressure : / mmHG Vent. Rate : 077 BPM Atrial Rate : 077 BPM P-R Int : 170 ms QRS Dur : 096 ms QT Int : 440 ms P-R-T Axes : 006 -28 101 degrees QTc Int : 497 ms Sinus rhythm with Premature atrial complexes Left ventricular hypertrophy with repolarization abnormality Prolonged QT Abnormal ECG When compared with ECG of 05-JUL-2023 21:50, No significant change was found Confirmed by Kevin Stein ([id number]) on 07/07/2023 2:21:22 PM Referred By: REFERRED SELF Confirmed By:Kevin Stein
--- NOTE | 2023-07-07 14:29 | Hospitalist Progress Note ---
Date of Service July 07, 2023 Assessment & Plan (1) Metabolic encephalopathy: Plan: Present on admission. Now resolved. Supportive care. Continue to treat urinary tract infection. (2) HTN (hypertension): Plan: Stable. Continue current medical management (3) Confusion: Plan: Acute metabolic encephalopathy present on admission. Now resolved. Continue to treat UTI (4) Elevated troponin: Plan: Appears to be due to supply demand mismatch. No chest pain. No acute EKG changes. No evidence of acute coronary syndrome (5) Hypomagnesemia: Plan: Corrected with parenteral replacement. Serial labs (6) Complicated urinary tract infection: Plan: E. coli isolated. Pansensitive. Continue Rocephin, day 2 (7) CAD (coronary artery disease): Plan: Stable. Continue current medical management. No chest pain. No acute EKG changes (8) Ambulatory dysfunction: Plan: OT and PT assessments requested. (9) Uncontrolled type 2 diabetes mellitus: Plan: ADA diet. Sliding scale coverage as needed. Continue current medical management (10) Diabetic peripheral neuropathy associated with type 2 diabetes mellitus: Plan To be determined by OT and PT assessments. She may be a candidate for IPR placement. Admission and Anticipated Discharge Date Admission Date: July 06, 2023 Subjective Alert and oriented. Mental status has returned to baseline. OT and PT assessments requested. She may be a candidate for inpatient rehab. E. coli isolated in the urine. Pansensitive. She is currently on Rocephin. Review of Systems 2 Review of Systems: Constitutional-no fever or chills ENT-no blurred vision, no double vision, no epistaxis, no sore throat Respiratory-no cough, no wheezing, no shortness of breath Cardiac-no palpitations, no chest pain, no syncope GI-no nausea, vomiting, diarrhea, melena, hematochezia -no urinary retention, no urinary incontinence, no dysuria, no hematuria Musculoskeletal-no joint pain, no muscle tenderness Skin-no bruising, no rashes, no pruritus Neuro-no isolated weakness, no paresthesia, no weakness Psych-no depression, no anxiety Physical Exam 2 Physical Exam: General-alert and oriented x3, no fevers, no chills HEENT-head atraumatic and normocephalic, pupils equal and reactive to light, extraocular muscles intact Neck-no lymphadenopathy or thyromegaly, trachea midline Chest-clear to auscultation percussion. No rales wheezing or rhonchi Cardiac-regular rate and rhythm, normal S1 and S2 Abdomen-normal bowel sounds, nontender, no hepatosplenomegaly Extremities-no cyanosis, clubbing, or edema Neuro-cranial nerves II through XII intact, motor and sensory function within normal limits, strength symmetrical, no focal deficits Psych-normal affect, normal mood Results & Data Results & Data Vital Signs (Past 12 Hours) Vital Signs Temp Pulse Pulse Resp BP BP Pulse Ox 07/07/23 11:33 37.0 C 60 19 127/64 93 07/07/23 08:00 82 07/07/23 07:48 36.7 C 63 18 151/89 H 98 07/07/23 03:15 36.5 C 76 18 173/81 H 97 O2 Del Method O2 Flow Rate 07/07/23 11:33 Room Air 07/07/23 08:00 07/07/23 07:48 Nasal Cannula 2.0 07/07/23 03:15 Nasal Cannula 2 Laboratory Results 07/07/23 06:06 07/07/23 06:06 PG Care Time/CCT Total # of Minutes Spent Total Time Spent with Patient: Total time spent is greater than 50% in coordination of care (as documented) at patient's floor/unit and/or counseling patient: Coding Level of Care Code 43198 SUB INP/OBS CARE 3/50MIN Diagnoses Metabolic encephalopathy G93.41 Essential hypertension I10 Hypertension type: unspecified Confusion R41.0 Elevated troponin R79.89 Hypomagnesemia E83.42 Complicated urinary tract infection N39.0 CAD (coronary artery disease) I25.10 Ambulatory dysfunction R26.2 Uncontrolled type 2 diabetes mellitus with hyperglycemia E11.65 Glycemic state: with hyperglycemia Diabetic peripheral neuropathy associated with type 2 diabetes mellitus E11.42 (2) HTN (hypertension) Hypertension type: unspecified Qualified Code(s): I10 - Essential (primary) hypertension (9) Uncontrolled type 2 diabetes mellitus Glycemic state: with hyperglycemia Qualified Code(s): E11.65 - Type 2 diabetes mellitus with hyperglycemia
[2023-07-07] MEDS: LANTUS PER UNIT CHARGE SQ SCH (22:00)
[2023-07-07] MEDS: ASPIRIN 81 MG ECTAB PO SCH (22:00)
[2023-07-07] MEDS: cefTRIAXone SODIUM 2,000 MG in DEXTROSE 5 % MINI-B 50 ML IV SCH (22:02)
[2023-07-08] MEDS: HEPARIN SOD 5,000 UNIT/0.5 ML VIAL SQ SCH ×3 (06:15→21:18)
[2023-07-08 07:42] LABS: Basophils # (auto) 0.05 K/uL (0.00-0.20); Basophils % (auto) 0.5 %; Eosinophils # (auto) 0.15 K/uL (0.00-0.50); Eosinophils % (auto) 1.6 %; Hematocrit (blood only) 40.5 % (37.0-47.0); Hemoglobin 14.1 g/dl (12.0-16.0); Immature Granulocytes # (auto) 0.03 K/uL (0.01-0.20); Immature Granulocytes % (auto) 0.3 %; Lymphocytes # (auto) 4.31 K/uL (1.20-3.40); Lymphocytes % (auto) 46.9 %; Mean Corpuscular Hemoglobin 31.1 pg (25.0-34.0); Mean Corpuscular Hgb Conc 34.8 g/dL (32.0-36.0); Mean Corpuscular Volume 89.2 fL (80.0-100.0); Mean Platelet Volume 11.5 fL (9.4-12.4); Monocytes # (auto) 0.52 K/uL (0.11-0.59); Monocytes % (auto) 5.7 %; Neutrophils # (auto) 4.13 K/uL (1.40-6.50); Platelet Count 193 K/uL (130-400); RDW Coefficient of Variation 13.1 % (11.5-14.5); RDW Standard Deviation 42.5 fL (36.4-46.3); Red Blood Count 4.54 M/uL (4.20-5.40); White Blood Count 9.19 K/ul (4.8-10.8)
[2023-07-08 08:11] LABS: Albumin Globulin Ratio 1.1 (0.9-2); Albumin Level 3.4 gm/dl (3.4-5.0); BUN Creatinine Ratio 20.3 (10-20); Bilirubin,Total 0.4 mg/dl (0.2-1.0); Calcium 9.1 mg/dl (8.6-10.3); Creatinine Clr Calc Pharmacy 97.2 ml/min; Est GFR (African American) 106.3 ml/min; Est GFR (Non-African American) 91.7 ml/min; Magnesium 1.8 mg/dl (1.7-2.4); Potassium 3.6 mmol/L (3.5-5.1); Total Protein 6.4 gm/dl (6.0-8.3)
[2023-07-08] MEDS: INSULIN ASPART PER UNIT CHARGE SC SCH ×4 (08:31→21:25)
[2023-07-08] MEDS: CEROVITE ADV FORMULA TAB PO SCH (08:32)
[2023-07-08] MEDS: TAMSULOSIN HCL 0.4 MG CAP PO SCH (08:32)
[2023-07-08] MEDS: LORATADINE 10 MG TAB PO SCH (08:32)
[2023-07-08] MEDS: oxyBUTYnin chloride 5 MG TAB PO SCH ×2 (08:32→21:17)
[2023-07-08] MEDS: PANTOprazole 40 MG TAB PO SCH (08:33)
[2023-07-08] MEDS: carvediloL 6.25 MG TAB PO SCH ×2 (08:33→21:18)
[2023-07-08] MEDS: CHOLECALCIFEROL 1,000 UNITS 25 MCG TAB PO SCH (08:33)
[2023-07-08] MEDS: CALCITONIN SALMON NA 200 IU/AC 3.7 ML BTL SCH (08:33)
[2023-07-08] MEDS: DULoxetine HCL 60 MG CAP PO SCH ×2 (08:33→21:18)
[2023-07-08] MEDS: PREGABALIN 150 MG CAP PO SCH ×2 (08:44→21:27)
--- NOTE | 2023-07-08 12:38 | Electrocardiogram Report ---
Test Reason : Blood Pressure : / mmHG Vent. Rate : 059 BPM Atrial Rate : 059 BPM P-R Int : 174 ms QRS Dur : 094 ms QT Int : 436 ms P-R-T Axes : 020 -23 097 degrees QTc Int : 431 ms Sinus bradycardia with Premature ventricular complexes Left ventricular hypertrophy with repolarization abnormality Abnormal ECG When compared with ECG of 07-JUL-2023 05:35, QT has shortened Confirmed by Kevin Stein ([id number]) on 07/08/2023 12:38:34 PM Referred By: REFERRED SELF Confirmed By:Kevin Stein
--- NOTE | 2023-07-08 15:27 | Hospitalist Progress Note ---
Date of Service July 08, 2023 Assessment & Plan (1) Metabolic encephalopathy: Plan: Present on admission. Now resolved. Supportive care. Continue to treat urinary tract infection. (2) HTN (hypertension): Plan: Stable. Continue current medical management (3) Confusion: Plan: Acute metabolic encephalopathy present on admission. Now resolved. Continue to treat UTI (4) Elevated troponin: Plan: Appears to be due to supply demand mismatch. No chest pain. No acute EKG changes. No evidence of acute coronary syndrome (5) Hypomagnesemia: Plan: Corrected with parenteral replacement. Serial labs (6) Complicated urinary tract infection: Plan: E. coli isolated. Pansensitive. Continue Rocephin, day 3 (7) CAD (coronary artery disease): Plan: Stable. Continue current medical management. No chest pain. No acute EKG changes (8) Ambulatory dysfunction: Plan: Continue OT and PT while hospitalized. Rehab placement at discharge (9) Uncontrolled type 2 diabetes mellitus: Plan: ADA diet. Sliding scale coverage as needed. Continue current medical management (10) Morbid obesity: Plan: BMI greater than 40. Significant weight loss recommended Plan Anticipate discharge to [facility] when arrangements are finalized. Admission and Anticipated Discharge Date Admission Date: July 06, 2023 Subjective Alert and oriented. No new problems. Rocephin day 3 for E. coli UTI. OT and PT both recommend continued rehab. She has chosen [facility] and arrangements are underway. Review of Systems 2 Review of Systems: Constitutional-no fever or chills ENT-no blurred vision, no double vision, no epistaxis, no sore throat Respiratory-no cough, no wheezing, no shortness of breath Cardiac-no palpitations, no chest pain, no syncope GI-no nausea, vomiting, diarrhea, melena, hematochezia -no urinary retention, no urinary incontinence, no dysuria, no hematuria Musculoskeletal-no joint pain, no muscle tenderness Skin-no bruising, no rashes, no pruritus Neuro-no isolated weakness, no paresthesia, no weakness Psych-no depression, no anxiety Physical Exam 2 Physical Exam: General-alert and oriented x3, no fevers, no chills HEENT-head atraumatic and normocephalic, pupils equal and reactive to light, extraocular muscles intact Neck-no lymphadenopathy or thyromegaly, trachea midline Chest-clear to auscultation percussion. No rales wheezing or rhonchi Cardiac-regular rate and rhythm, normal S1 and S2 Abdomen-normal bowel sounds, nontender, no hepatosplenomegaly Extremities-no cyanosis, clubbing, or edema Neuro-cranial nerves II through XII intact, motor and sensory function within normal limits, strength symmetrical, no focal deficits Psych-normal affect, normal mood Results & Data Results & Data Vital Signs (Past 12 Hours) Vital Signs Temp Pulse Pulse Resp BP Pulse Ox O2 Del Method 07/08/23 11:33 36.7 C 61 20 112/64 92 Room Air 07/08/23 09:00 65 Laboratory Results 07/08/23 07:15 07/08/23 07:15 PG Care Time/CCT Total # of Minutes Spent Total Time Spent with Patient: Total time spent is greater than 50% in coordination of care (as documented) at patient's floor/unit and/or counseling patient: Coding Level of Care Code 93544 SUB INP/OBS CARE 2/35MIN Diagnoses Metabolic encephalopathy G93.41 Essential hypertension I10 Hypertension type: unspecified Confusion R41.0 Elevated troponin R79.89 Hypomagnesemia E83.42 Complicated urinary tract infection N39.0 CAD (coronary artery disease) I25.10 Ambulatory dysfunction R26.2 Uncontrolled type 2 diabetes mellitus with hyperglycemia E11.65 Glycemic state: with hyperglycemia Morbid obesity E66.01 (2) HTN (hypertension) Hypertension type: unspecified Qualified Code(s): I10 - Essential (primary) hypertension (9) Uncontrolled type 2 diabetes mellitus Glycemic state: with hyperglycemia Qualified Code(s): E11.65 - Type 2 diabetes mellitus with hyperglycemia
[2023-07-08] MEDS: ASPIRIN 81 MG ECTAB PO SCH (21:17)
[2023-07-08] MEDS: cefTRIAXone SODIUM 2,000 MG in DEXTROSE 5 % MINI-B 50 ML IV SCH (21:19)
[2023-07-08] MEDS: LANTUS PER UNIT CHARGE SQ SCH (21:26)
[2023-07-08] MEDS: ACETAMINOPHEN 325 MG TAB PO PRN (23:31)
[2023-07-09] MEDS: HEPARIN SOD 5,000 UNIT/0.5 ML VIAL SQ SCH ×3 (05:13→20:16)
[2023-07-09] MEDS: CALCITONIN SALMON NA 200 IU/AC 3.7 ML BTL SCH (08:21)
[2023-07-09] MEDS: CHOLECALCIFEROL 1,000 UNITS 25 MCG TAB PO SCH (08:22)
[2023-07-09] MEDS: oxyBUTYnin chloride 5 MG TAB PO SCH ×2 (08:22→20:17)
[2023-07-09] MEDS: PANTOprazole 40 MG TAB PO SCH (08:22)
[2023-07-09] MEDS: DULoxetine HCL 60 MG CAP PO SCH ×2 (08:22→20:17)
[2023-07-09] MEDS: TAMSULOSIN HCL 0.4 MG CAP PO SCH (08:22)
[2023-07-09] MEDS: LORATADINE 10 MG TAB PO SCH (08:22)
[2023-07-09] MEDS: CEROVITE ADV FORMULA TAB PO SCH (08:22)
[2023-07-09] MEDS: INSULIN ASPART PER UNIT CHARGE SC SCH ×4 (08:31→20:09)
[2023-07-09] MEDS: PREGABALIN 150 MG CAP PO SCH ×2 (08:31→20:16)
--- NOTE | 2023-07-09 09:15 | Hospitalist Progress Note ---
Date of Service July 09, 2023 Assessment & Plan (1) Metabolic encephalopathy: Plan: Present on admission. Now resolved. E coli uti poa, now with weakness and ambulation issues (2) Elevated troponin: Plan: Appears to be due to supply demand mismatch. No chest pain. No acute EKG changes. No evidence of acute coronary syndrome Chronic stable htn treated , CAD stable continues on carvedilol aspirin (3) Hypomagnesemia: Plan: Corrected with parenteral replacement. Serial labs (4) Uncontrolled type 2 diabetes mellitus: Plan: ADA diet. Sliding scale coverage as needed. (5) Morbid obesity: Plan: BMI greater than 40. Significant weight loss recommended (6) Ambulatory dysfunction: Plan: Continue OT and PT while hospitalized. Rehab placement at discharge Plan Anticipate discharge to [facility] when arrangements are finalized. Admission and Anticipated Discharge Date Admission Date: July 06, 2023 Subjective Alert and oriented. No new problems. Rocephin day E. coli UTI LD of antibiotic 07/13/23 will convert to po. OT and PT both recommend continued rehab. She has chosen [facility] and arrangements are underway. Physical Exam Physical Exam: pt is awake and alert cardiac exam is regular lungs are clear Results & Data Results & Data Vital Signs (Past 12 Hours) Vital Signs Temp Pulse Resp BP Pulse Ox O2 Del Method O2 Del Method 07/09/23 08:26 97.9 F 51 L 18 128/73 92 Room Air 07/09/23 03:00 Room Air 07/09/23 02:56 98.1 F 50 L 18 127/72 93 Room Air 07/08/23 23:50 98.1 F 66 18 121/60 95 Room Air Laboratory Results reviewed glc ,magnesium PG Care Time/CCT Total # of Minutes Spent Total Time Spent with Patient: Total time spent is greater than 50% in coordination of care (as documented) at patient's floor/unit and/or counseling patient: Coding Level of Care Code 27167 SUB INP/OBS CARE 2/35MIN Diagnoses Metabolic encephalopathy G93.41 Elevated troponin R79.89 Hypomagnesemia E83.42 Uncontrolled type 2 diabetes mellitus with hyperglycemia E11.65 Glycemic state: with hyperglycemia Morbid obesity E66.01 Ambulatory dysfunction R26.2 (4) Uncontrolled type 2 diabetes mellitus Glycemic state: with hyperglycemia Qualified Code(s): E11.65 - Type 2 diabetes mellitus with hyperglycemia
[2023-07-09] MEDS: carvediloL 6.25 MG TAB PO SCH ×2 (09:43→20:16)
[2023-07-09] MEDS: ASPIRIN 81 MG ECTAB PO SCH (20:18)
[2023-07-09] MEDS: LANTUS PER UNIT CHARGE SQ SCH (20:25)
[2023-07-09] MEDS: cefTRIAXone SODIUM 2,000 MG in DEXTROSE 5 % MINI-B 50 ML IV SCH (21:45)
[2023-07-10] MEDS: HEPARIN SOD 5,000 UNIT/0.5 ML VIAL SQ SCH ×3 (05:10→21:42)
--- NOTE | 2023-07-10 08:04 | Hospitalist Progress Note ---
Date of Service July 10, 2023 Assessment & Plan (1) Metabolic encephalopathy: Plan: Present on admission. Now resolved. E coli uti poa, now with weakness and ambulation issues will need rehab at discharge (2) Elevated troponin: Plan: Appears to be due to supply demand mismatch. No chest pain. No acute EKG changes. No evidence of acute coronary syndrome Chronic stable htn treated , CAD stable continues on carvedilol aspirin (3) Hypomagnesemia: Plan: Corrected with parenteral replacement. replete (4) Uncontrolled type 2 diabetes mellitus: Plan: ADA diet. Sliding scale coverage continues (5) Morbid obesity: Plan: BMI greater than 40. Significant weight loss recommended (6) Ambulatory dysfunction: Plan: Continue OT and PT while hospitalized. Rehab placement at discharge Plan Anticipate discharge to [facility] when arrangements are finalized. Admission and Anticipated Discharge Date Admission Date: July 06, 2023 Subjective Alert and oriented. No new problems. Rocephin for E. coli UTI LD of antibiotic 07/13/23 will convert to po at time of dc OT and PT both recommend continued rehab. She has chosen [facility] pending authoization Physical Exam Physical Exam: pt is awake and alert cardiac exam is regular lungs are clear Results & Data Results & Data Vital Signs (Past 12 Hours) Vital Signs Temp Pulse Pulse Resp BP Pulse Ox O2 Del Method 07/10/23 07:48 98.1 F 55 L 16 159/74 H 93 Room Air 07/09/23 21:30 Room Air 07/09/23 21:30 97.7 F 64 18 158/70 H 97 Room Air PG Care Time/CCT Total # of Minutes Spent Total Time Spent with Patient: Total time spent is greater than 50% in coordination of care (as documented) at patient's floor/unit and/or counseling patient: Coding Level of Care Code 34549 SUB INP/OBS CARE 2/35MIN Diagnoses Metabolic encephalopathy G93.41 Elevated troponin R79.89 Hypomagnesemia E83.42 Uncontrolled type 2 diabetes mellitus with hyperglycemia E11.65 Glycemic state: with hyperglycemia Morbid obesity E66.01 Ambulatory dysfunction R26.2 (4) Uncontrolled type 2 diabetes mellitus Glycemic state: with hyperglycemia Qualified Code(s): E11.65 - Type 2 diabetes mellitus with hyperglycemia
[2023-07-10] MEDS: carvediloL 6.25 MG TAB PO SCH ×2 (08:09→21:42)
[2023-07-10] MEDS: LORATADINE 10 MG TAB PO SCH (08:13)
[2023-07-10] MEDS: PREGABALIN 150 MG CAP PO SCH ×2 (08:13→21:42)
[2023-07-10] MEDS: CEROVITE ADV FORMULA TAB PO SCH (08:13)
[2023-07-10] MEDS: oxyBUTYnin chloride 5 MG TAB PO SCH ×2 (08:14→20:49)
[2023-07-10] MEDS: DULoxetine HCL 60 MG CAP PO SCH ×2 (08:14→20:51)
[2023-07-10] MEDS: CALCITONIN SALMON NA 200 IU/AC 3.7 ML BTL SCH (08:14)
[2023-07-10] MEDS: TAMSULOSIN HCL 0.4 MG CAP PO SCH (08:14)
[2023-07-10] MEDS: INSULIN ASPART PER UNIT CHARGE SC SCH ×4 (08:14→20:54)
[2023-07-10] MEDS: PANTOprazole 40 MG TAB PO SCH (08:14)
[2023-07-10] MEDS: CHOLECALCIFEROL 1,000 UNITS 25 MCG TAB PO SCH (08:14)
[2023-07-10] MEDS: ASPIRIN 81 MG ECTAB PO SCH (20:50)
[2023-07-10] MEDS: LANTUS PER UNIT CHARGE SQ SCH (20:54)
[2023-07-10] MEDS: cefTRIAXone SODIUM 2,000 MG in DEXTROSE 5 % MINI-B 50 ML IV SCH (21:42)
[2023-07-11] MEDS: ACETAMINOPHEN 325 MG TAB PO PRN (03:13)
[2023-07-11] MEDS: HEPARIN SOD 5,000 UNIT/0.5 ML VIAL SQ SCH ×3 (05:51→21:11)
[2023-07-11] MEDS: CALCITONIN SALMON NA 200 IU/AC 3.7 ML BTL SCH (07:44)
[2023-07-11] MEDS: TAMSULOSIN HCL 0.4 MG CAP PO SCH (07:44)
[2023-07-11] MEDS: oxyBUTYnin chloride 5 MG TAB PO SCH ×2 (07:44→19:55)
[2023-07-11] MEDS: DULoxetine HCL 60 MG CAP PO SCH ×2 (07:44→19:55)
[2023-07-11] MEDS: CEROVITE ADV FORMULA TAB PO SCH (07:44)
[2023-07-11] MEDS: carvediloL 6.25 MG TAB PO SCH ×2 (07:44→19:55)
[2023-07-11] MEDS: CHOLECALCIFEROL 1,000 UNITS 25 MCG TAB PO SCH (07:45)
[2023-07-11] MEDS: PANTOprazole 40 MG TAB PO SCH (07:45)
[2023-07-11] MEDS: LORATADINE 10 MG TAB PO SCH (07:45)
[2023-07-11] MEDS: PREGABALIN 150 MG CAP PO SCH ×2 (07:50→19:58)
[2023-07-11] MEDS: INSULIN ASPART PER UNIT CHARGE SC SCH ×4 (08:19→21:10)
--- NOTE | 2023-07-11 16:39 | Hospitalist Progress Note ---
Date of Service July 11, 2023 Assessment & Plan (1) Metabolic encephalopathy: Plan: Present on admission. Now resolved. E coli uti poa, now with weakness and ambulation issues anticipate rehab at discharge (2) Elevated troponin: Plan: Appears to be due to supply demand mismatch. No chest pain. No acute EKG changes. No evidence of acute coronary syndrome Chronic stable htn now treated , CAD stable continues on carvedilol aspirin (3) Hypomagnesemia: Plan: Corrected with parenteral replacement. repleted (4) Uncontrolled type 2 diabetes mellitus: Plan: ADA diet. Sliding scale coverage continues (5) Morbid obesity: Plan: BMI greater than 40. Significant weight loss recommended (6) Ambulatory dysfunction: Plan: Continue OT and PT while hospitalized. Rehab placement at discharge Plan Anticipate discharge to [facility] when arrangements are finalized. Admission and Anticipated Discharge Date Admission Date: July 06, 2023 Subjective Alert and oriented. No new problems. Rocephin for E. coli UTI LD of antibiotic 07/13/23 will convert to po at time of dc OT and PT both recommend continued rehab. She has chosen [facility] pending authorization anticipate 07/12/23 Physical Exam Physical Exam: pt is awake and alert cardiac exam is regular lungs are clear Results & Data Results & Data Vital Signs (Past 12 Hours) Vital Signs Temp Pulse Pulse Pulse Resp BP BP 07/11/23 15:22 07/11/23 15:15 97.9 F 61 16 152/84 H 07/11/23 11:24 97.3 F L 54 L 14 140/74 07/11/23 08:23 16 07/11/23 07:59 07/11/23 07:38 97.5 F L 59 L 16 142/78 H 07/11/23 07:17 97.7 F 62 16 171/55 H Pulse Ox O2 Del Method 07/11/23 15:22 95 Room Air 07/11/23 15:15 93 Room Air 07/11/23 11:24 96 Room Air 07/11/23 08:23 97 Room Air 07/11/23 07:59 Room Air 07/11/23 07:38 92 Room Air 07/11/23 07:17 94 Room Air PG Care Time/CCT Total # of Minutes Spent Total Time Spent with Patient: Total time spent is greater than 50% in coordination of care (as documented) at patient's floor/unit and/or counseling patient: Coding Level of Care Code 09611 SUB INP/OBS CARE Diagnoses Metabolic encephalopathy G93.41 Elevated troponin R79.89 Hypomagnesemia E83.42 Uncontrolled type 2 diabetes mellitus with hyperglycemia E11.65 Glycemic state: with hyperglycemia Morbid obesity E66.01 Ambulatory dysfunction R26.2 (4) Uncontrolled type 2 diabetes mellitus Glycemic state: with hyperglycemia Qualified Code(s): E11.65 - Type 2 diabetes mellitus with hyperglycemia
[2023-07-11] MEDS: ASPIRIN 81 MG ECTAB PO SCH (19:54)
[2023-07-11] MEDS: LANTUS PER UNIT CHARGE SQ SCH (21:10)
[2023-07-11] MEDS: cefTRIAXone SODIUM 2,000 MG in DEXTROSE 5 % MINI-B 50 ML IV SCH (21:12)
[2023-07-12] MEDS: HEPARIN SOD 5,000 UNIT/0.5 ML VIAL SQ SCH ×2 (05:02→12:43)
[2023-07-12] MEDS: INSULIN ASPART PER UNIT CHARGE SC SCH ×2 (08:32→12:43)
[2023-07-12] MEDS: CHOLECALCIFEROL 1,000 UNITS 25 MCG TAB PO SCH (08:34)
[2023-07-12] MEDS: CEROVITE ADV FORMULA TAB PO SCH (08:34)
[2023-07-12] MEDS: carvediloL 6.25 MG TAB PO SCH (08:34)
[2023-07-12] MEDS: PANTOprazole 40 MG TAB PO SCH (08:34)
[2023-07-12] MEDS: TAMSULOSIN HCL 0.4 MG CAP PO SCH (08:35)
[2023-07-12] MEDS: oxyBUTYnin chloride 5 MG TAB PO SCH (08:35)
[2023-07-12] MEDS: LORATADINE 10 MG TAB PO SCH (08:35)
[2023-07-12] MEDS: DULoxetine HCL 60 MG CAP PO SCH (08:35)
[2023-07-12] MEDS: CALCITONIN SALMON NA 200 IU/AC 3.7 ML BTL SCH (08:36)
[2023-07-12] MEDS: PREGABALIN 150 MG CAP PO SCH (08:39)
--- NOTE | 2023-07-12 14:13 | Discharge Summary ---
Date of Service July 12, 2023 Admission HPI Per Admitting Provider The patient is a 60-year-old female with a past medical history including complicated UTI, metabolic encephalopathy, hypertension, C. difficile diarrhea, CAD, diabetic neuropathy, diabetes mellitus, diabetic nephropathy, hyperlipidemia, diabetic peripheral neuropathy, RLS, and ambulatory dysfunction. She presents to the emergency department as noted above. Principal Diagnosis Metabolic encephalopathy present on admission due to urinary tract infection. Elevated troponin due to demand ischemia. Discharge Exam Awake alert appropriate no distress cardiac exam is regular Discharge Data Allergies Allergy/AdvReac Type Severity Reaction Status Date / Time tetanus toxoid, adsorbed Allergy Severe TROUBLE Verified 12/02/22 11:49 BREATHING Penicillins Allergy Intermediate ITCHINESS Verified 12/02/22 11:49 onion Allergy Unknown ? Verified 12/02/22 11:49 REACTION, ALLERGY SHOWN ON SKIN TEST orange Allergy Unknown PATCH Verified 12/02/22 11:49 TESTED HIVES REACTION atorvastatin [From Lipitor] AdvReac Intermediate Headache Verified 12/02/22 11:49 meperidine AdvReac Intermediate NAUSEA AND Verified 12/02/22 11:49 VOMITING metformin AdvReac Intermediate diarrhea Verified 12/02/22 11:49 morphine AdvReac Intermediate Gets wild Verified 12/02/22 11:49 and has the shakes oxycodone AdvReac Intermediate Nausea/Vomi Verified 12/02/22 11:49 ting tomato AdvReac Intermediate COUGHING Verified 12/02/22 11:49 sulfamethoxazole AdvReac Unknown Unknown Verified 12/02/22 11:49 [From Bactrim] trimethoprim [From Bactrim] AdvReac Unknown Unknown Verified 12/02/22 11:49 Consultations 07/05/23 23:16 ED Decision to Admit Stat Ordered Studies 07/05/23 21:22 CT angio head w con Stat CT angio neck with con Stat CT head/brain wo con Stat Hospital Course (1) Metabolic encephalopathy: Present on admission. Now resolved. E coli uti poa, completed treatment antibiotics (ceftriaxone). Transition to subacute rehab (2) Elevated troponin: Appears to be due to supply demand mismatch. No chest pain. No acute EKG changes. No evidence of acute coronary syndrome Chronic stable htn now treated , CAD stable continues on carvedilol aspirin (3) Hypomagnesemia: Corrected with parenteral replacement. repleted (4) Uncontrolled type 2 diabetes mellitus: Return to home medications of insulin semaglutide (5) Morbid obesity: BMI greater than 40. Significant weight loss recommended (6) Ambulatory dysfunction: Will benefit from subacute rehab at discharge [facility] on 07/12/2023 Total Time Total Time Spent Total Time Spent (In Minutes): It required greater than 30 minutes to prepare this patient for discharge. Discharge Plan Discharge Items Patient Disposition: [facility] Reason For Visit: UTI, METABOLIC ENCEPHALOPATHY Discharge Diagnosis: metabolic encephalopahty uti poa Activity: Per Instructions section Non-emergency contact: Primary Care Provider Call non-emergency contact if: your symptoms worsen Follow-up/Referrals: Mer Jack DO [Primary Care Provider] - Diet: Carb Consistent or DM2 Addtl Attending Provider Instructions: Please continue physical therapy please consider frequent checking of diabetes as we are transitioning back to her home regiment Pending Studies at Discharge: No Stand-Alone Forms: My [facility] Skilled Items Patient informed of condition?: Yes DNR: No Discharge Level of Care: Skilled Communicable Disease: No Discharge Prognosis: Stable Lines: None Urinary Catheter: No Medications and DC Order Prescriptions: Continued loratadine [Claritin] 10 mg tablet 10 mg PO DAILY Qty: 90 1RF Ozempic 0.25 mg or 0.5 mg (2 mg/3 mL) pen injector 0.5 mg subcut Q7D 30 Days Qty: 3 1RF omeprazole 40 mg capsule,delayed release(DR/EC) See Rx Instructions .ROUTE .COMPLEX Qty: 90 1RF Dose Instruction: TAKE ONE CAPSULE BY MOUTH EVERY DAY Rx Instructions: TAKE ONE CAPSULE BY MOUTH EVERY DAY oxybutynin chloride 5 mg tablet See Rx Instructions .ROUTE .COMPLEX Qty: 270 1RF Rx Instructions: Take 1 tab PO in AM, 2 tabs PO qhs; carvedilol 6.25 mg tablet 6.25 mg PO BID Qty: 180 1RF Rx Instructions: for high blood pressure pregabalin 150 mg capsule 150 mg PO BID Qty: 60 0RF duloxetine 60 mg capsule,delayed release(DR/EC) 60 mg PO BID Qty: 60 5RF insulin degludec [Tresiba FlexTouch U-100] 100 unit/mL (3 mL) insulin pen 50 unit SUBCUT HS 90 Days Qty: 45 1RF cholecalciferol (vitamin D3) 50 mcg (2,000 unit) capsule 2,000 unit PO QAM tamsulosin 0.4 mg capsule 0.4 mg PO DAILY Qty: 30 2RF omega 2-yzu-axx-fish oil [Fish Oil] 1,000 mg (120 mg-180 mg) Capsule 1,000 mg PO HS aspirin 81 mg Tablet,Delayed Release (Dr/Ec) 81 mg PO HS calcitonin (salmon) 200 unit/actuation Vian,Non-Aerosol 1 spray NA DAILY Qty: 3.7 0RF Women's 50 Plus Daily Formula 400 mcg-500 mg calcium-20 mcg Tablet 1 tab PO QAM acetaminophen 325 mg tablet 650 mg PO QID PRN (Reason: Pain) Discontinued cephalexin 500 mg capsule 2,000 mg PO ONCE Qty: 4 1RF Rx Instructions: Take dose 30-60 min prior to dental care No Action (DME) OneTouch Ultra Blue Test Strip Strip See Dose Instructions .ROUTE .MEDSUPPLY Qty: 400 3RF Rx Instructions: test 4 times daily (DME) lancets [OneTouch UltraSoft Lancets] [facility] [place] See Dose Instructions .ROUTE .MEDSUPPLY Qty: 400 3RF Dose Instruction: As directed Rx Instructions: Testing 4 times daily (DME) Wheeled Walker [facility] See Rx Instructions .Route Qty: 1 0RF Rx Instructions: As directed (DME) Scooter [facility] [place] See Rx Instructions .Route Qty: 1 0RF Rx Instructions: Motorized Scooter (DME) pen needle, diabetic [BD Ultra-Fine Araceli Pen Needle] 32 gauge x 5/32" needle See Dose Instructions .ROUTE .MEDSUPPLY Qty: 200 3RF Rx Instructions: use 2 needles daily (DME) blood-glucose meter [OneTouch Ultra2 Meter] [facility] [place] See Rx Instructions .ROUTE .MEDSUPPLY Qty: 1 0RF Rx Instructions: Test blood sugars 4 times a day Discharge Orders: Discharge Order (Routine); Ordered 07/12/23 Ordered By: Tyler Pinedo/Other Patient Handouts: High Blood Sugar (Hyperglycemia), Managing Type 2 Diabetes Admission Data Admit Date/Time: 07/06/23 00:47 Attending Provider: Tyler Ren Admit Provider: Real Salazar Primary Care Provider: Mer Jack Other Providers: Seth Hines; Real Salazar Other Interventions: Discharge Summary Assessment (RN) Last Done: 07/12/23 11:09 Coding Level of Care Code 77244 INP/OBS DISCH >30 MIN Diagnoses Metabolic encephalopathy G93.41 Elevated troponin R79.89 Hypomagnesemia E83.42 Uncontrolled type 2 diabetes mellitus with hyperglycemia E11.65 Glycemic state: with hyperglycemia Morbid obesity E66.01 Ambulatory dysfunction R26.2
== END 2023-07-12 13:54 ==
LOC: ED 21:29 → EDINP 07-06 00:47 → SUATTDRO 07-06 00:47 → INTOOBSV 07-06 00:47 → 2S 07-06 02:59 → 3N 07-09 21:28

== ENCOUNTER 2023-08-12 14:11 | Inpatient (IN) ==
--- NOTE | 2023-08-12 15:08 | Emergency Department Note ---
Impression & Plan Acute confusion, Acute UTI (urinary tract infection) ED Provider Note HISTORY OF PRESENT ILLNESS: Patient is a 68-year-old female presenting with altered mental status. Patient is unable to provide any meaningful history. History was obtained via EMS who got report from the son. Son had called 911 because the patient has been acting abnormally in the last 24 hours. He last found her well yesterday. He reports last time she got like this she had a urinary tract infection. The patient does report that she has some dysuria. No reported fevers. Patient denies any chest pain, shortness of breath or abdominal pain. ROS: as above PHYSICAL EXAM: Constitutional: Patient appears in no acute distress. HENT: Head: Normocephalic and atraumatic. Eyes: EOMI, PERRL Mouth/Throat: Mucous membranes moist. Neck: Trachea midline. Neck supple. Cardiovascular: RRR, No murmurs, rubs or gallops. Intact distal pulses. Pulmonary/Chest: No respiratory distress. Breath sounds clear and equal bilaterally. No wheezes or rales. Abdominal: Abdomen soft, no tenderness, rebound or guarding. Musculoskeletal: No edema, tenderness or deformity noted. Skin: Warm and dry. No rash, erythema, pallor or cyanosis Psychiatric: Appropriate mood and affect for situation. Neurological: Alert but confused. Alert to only self. CN II-XII grossly intact, moving all extremities equally and fully. MDM: - Vitals signs showed hypertension. - History obtained via EMS, given patient's confusion. Patient presents with altered mental status. Patient is unable to provide any meaningful history and it is obtained via EMS. Son called 911 because the patient has not been acting her normal self in the last 24 hours. She reportedly gets like this when she has a urinary tract infection. Patient denies any chest pain, shortness of breath or abdominal pain. - Chronic conditions affecting care: recurrent UTI; HTN; C diff; CAD; diabetic neuropathy; DM-2; HLD - Differential diagnoses include, but are not limited to: UTI; pneumonia; viral syndrome; electrolyte abnormality - Order placed for continuous cardiac monitoring. At this time, monitor showed rate of 71 bpm with normal sinus rhythm, per my interpretation. - External medical records reviewed. EMS run sheet was reviewed. Fingerstick glucose over 300. - EKG interpreted by myself showed normal sinus rhythm. Rate 62 bpm. QTc 424. No acute ischemic changes. - Laboratory workup interpreted by myself showed normal WBC; hypokalemia (K 3.3); hyperglycemia (glucose 235); normal magnesium; normal hepatic function - Viral respiratory panel negative - UA showed evidence of infection. - Urine cultures were reviewed. Patient has grown E. coli in the past. Most recent urine culture from 07/05/2023 showed E. coli that was pansensitive. - 2g IV rocephin ordered for UTI. - CT head wo contrast negative for acute pathology. - No last known well. Patient outside of window for TNK and CT head wo contrast negative for obvious stroke. - On reassessment, patient is still encephalopathic and not able to answer questions significantly well. Her confusion is most likely secondary to her urinary tract infection. - Discussion was had with hospice home care coordinator about patient's case and need for admission - Hospitalist consulted for admission - Patient admitted to [facility] for further evaluation and management. ASSESSMENT AND PLAN: Diagnosis: confusion; acute UTI Plan: admit Past Med/Surg History Medical History Acute alteration in mental status Acute UTI (urinary tract infection) Morbid obesity with BMI of 45.0-49.9, adult Acute encephalopathy Kidney stones Closed compression fracture of L1 vertebra Chest pain Nail complaint Hallux valgus (acquired), left foot Acquired hallux valgus of right foot Acquired claw toe of right foot Acquired claw toe of left foot Diabetes mellitus with diabetic polyneuropathy Urinary incontinence History of cholecystitis Diverticulitis Hypertriglyceridemia Microalbuminuria Type 2 diabetes mellitus with complication Vitamin D deficiency History of anesthesia reaction PT STATES SHE IS SLOW TO WAKE, NO DOCUMENTED ADVERSE REACTION Anemia Diverticulitis Colitis 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 RLS (restless legs syndrome) Osteoarthritis GERD (gastroesophageal reflux disease) Right knee DJD HTN (hypertension) Surgical History History of cholecystectomy 12/28/17 History of total knee replacement R 2015, L 2016 S/P tonsillectomy S/P partial thyroidectomy S/P total hysterectomy History of total left hip arthroplasty 2007 S/P inguinal hernia repair Family History Mother Depression Diabetes Gallbladder disease Hypertension Lung cancer Alzheimer disease Father Lung cancer Bone cancer Grandmother Myocardial infarction Family/Other Breast cancer cousin Ovarian cancer Denies family history of Prostate cancer Colorectal cancer Social History Smoking Status: Never smoker Cigarettes Per Day: TRIED OCC. 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 Required: No Beliefs That Will Affect Care: None marital status: Current Living Situation: Spouse current occupational status: retired How many Children do You have: 2 Feels Safe at Home: Yes Diet: regular Diet Comment: regular caffeine: Yes during the past year weight has: remained stable Dental Care, Regularly: Yes Physical Activity Frequency: 1-2 Times per Week Seatbelt Use: always Sunscreen Use: No Assistive Devices: Walker and Wheelchair Allergies Allergies Allergy/AdvReac Type Severity Reaction Status Date / Time tetanus toxoid, adsorbed Allergy Severe TROUBLE Verified 12/02/22 11:49 BREATHING Penicillins Allergy Intermediate ITCHINESS Verified 12/02/22 11:49 onion Allergy Unknown ? Verified 12/02/22 11:49 REACTION, ALLERGY SHOWN ON SKIN TEST orange Allergy Unknown PATCH Verified 12/02/22 11:49 TESTED HIVES REACTION atorvastatin [From Lipitor] AdvReac Intermediate Headache Verified 12/02/22 11:49 meperidine AdvReac Intermediate NAUSEA AND Verified 12/02/22 11:49 VOMITING metformin AdvReac Intermediate diarrhea Verified 12/02/22 11:49 morphine AdvReac Intermediate Gets wild Verified 12/02/22 11:49 and has the shakes oxycodone AdvReac Intermediate Nausea/Vomi Verified 12/02/22 11:49 ting tomato AdvReac Intermediate COUGHING Verified 12/02/22 11:49 sulfamethoxazole AdvReac Unknown Unknown Verified 12/02/22 11:49 [From Bactrim] trimethoprim [From Bactrim] AdvReac Unknown Unknown Verified 12/02/22 11:49 Home Meds Home Medications Medication Instructions Recorded Confirmed omega 4-pbp-lzh-fish oil 1,000 mg 1,000 mg PO HS 06/20/18 08/12/23 (120 mg-180 mg) capsule (Fish Oil) cholecalciferol (vitamin D3) 50 2,000 unit PO QAM 05/15/21 08/12/23 mcg (2,000 unit) capsule aspirin 81 mg tablet,delayed 81 mg PO HS 04/05/22 08/12/23 release acetaminophen 325 mg tablet 650 mg PO QID PRN Pain 09/15/22 08/12/23 cyzohpmb-prl-cejmx ac 400 1 tab PO QAM 09/15/22 08/12/23 mcg-calcium carb 500 mg-vit K1 20 mcg tablet (Women's 50 Plus Daily Formula) omeprazole 40 mg capsule,delayed 40 mg PO QAM 08/12/23 08/12/23 release tamsulosin 0.4 mg capsule 0.4 mg PO QAM 08/12/23 08/12/23 Previous Rx's Medication Instructions Recorded blood sugar diagnostic (OneTouch #400 ea 09/19/20 Ultra Blue Test Strip) lancets (OneTouch UltraSoft #400 ea 09/19/20 Lancets) Wheeled Walker #1 ea 07/09/21 Scooter #1 ea 06/02/22 calcitonin (salmon) 200 1 spray NA DAILY #3.7 mL 07/07/22 unit/actuation nasal spray loratadine 10 mg tablet (Claritin) 10 mg PO DAILY #90 tabs 12/14/22 BD Ultra-Fine Araceli Pen Needle 32 #200 ea 04/06/23 gauge x 5/32" (pen needle, diabetic) semaglutide 0.25 mg or 0.5 mg (2 0.5 mg (0.736 mL) subcut Q7D 30 04/15/23 mg/3 mL) subcutaneous pen injector days #3 mL (Ozempic) oxybutynin chloride 5 mg tablet See Rx Instructions .Route 05/09/23 .COMPLEX #270 tabs carvedilol 6.25 mg tablet 6.25 mg PO BID #180 tabs 06/08/23 duloxetine 60 mg capsule,delayed 60 mg PO BID #60 caps 06/12/23 release pregabalin 150 mg capsule 150 mg PO BID #60 caps 06/12/23 insulin degludec 100 unit/mL (3 50 unit (0.5 mL) subcut HS 90 days 06/17/23 mL) subcutaneous pen (Tresiba #45 mL FlexTouch U-100 insulin) OneTouch Ultra2 Meter #1 ea 07/07/23 (blood-glucose meter) Results & Data (ED) Vital Signs Vital Signs - 24 hr 08/12/23 14:21 08/12/23 14:40 08/12/23 14:41 Temperature Source Oral Pulse Rate 61 59 L Pulse Rate from SpO2 Sensor Respiratory Rate 19 Respiratory Effort / Characteristics Non-Labored Spontaneous Respiratory Depth Normal Blood Pressure 189/78 H Blood Pressure Mean 115 Pulse Oximetry 92 Oxygen Delivery Method Room Air Room Air Sepsis Recent Fever Within 48 Hours No Sepsis New/Unexplained Change in Mental Status Yes Sepsis Action Taken by Nursing No Action Required 08/12/23 14:45 08/12/23 15:00 08/12/23 15:31 Temperature Source Pulse Rate 59 L 60 61 Pulse Rate from SpO2 Sensor 60 60 60 Respiratory Rate 17 17 15 Respiratory Effort / Characteristics Respiratory Depth Blood Pressure 199/87 H 186/81 H 187/78 H Blood Pressure Mean 124 116 114 Pulse Oximetry 92 94 94 Oxygen Delivery Method Room Air Room Air Room Air Sepsis Recent Fever Within 48 Hours Sepsis New/Unexplained Change in Mental Status Sepsis Action Taken by Nursing 08/12/23 15:45 08/12/23 16:00 Temperature Source Pulse Rate 61 61 Pulse Rate from SpO2 Sensor 61 61 Respiratory Rate 17 15 Respiratory Effort / Characteristics Respiratory Depth Blood Pressure 178/81 H 190/104 H Blood Pressure Mean 113 132 Pulse Oximetry 92 93 Oxygen Delivery Method Room Air Room Air Sepsis Recent Fever Within 48 Hours Sepsis New/Unexplained Change in Mental Status Sepsis Action Taken by Nursing Laboratory Data 08/12/23 14:59 08/12/23 14:59 Lab Results 08/12/23 08/12/23 08/12/23 Range/Units 14:59 15:17 15:21 WBC 9.92 (4.8-10.8) K/ul RBC 5.02 (4.20-5.40) M/uL Hgb 15.2 (12.0-16.0) g/dl Hct 45.8 (37.0-47.0) % MCV 91.2 (80.0-100.0) fL MCH 30.3 (25.0-34.0) pg MCHC 33.2 (32.0-36.0) g/dL RDW Std Deviation 44.0 (36.4-46.3) fL RDW Coeff of Charly 13.1 (11.5-14.5) % Plt Count 209 (130-400) K/uL MPV 11.7 (9.4-12.4) fL Immature Gran % (Auto) 0.3 % Neut % (Auto) 64.7 % Lymph % (Auto) 28.1 % [place] % (Auto) 5.7 % Eos % (Auto) 0.9 % Baso % (Auto) 0.3 % Neut # (Auto) 6.41 (1.40-6.50) K/uL Lymph # (Auto) 2.79 (1.20-3.40) K/uL [place] # (Auto) 0.57 (0.11-0.59) K/uL Eos # (Auto) 0.09 (0.00-0.50) K/uL Baso # (Auto) 0.03 (0.00-0.20) K/uL Immature Gran # (Auto) 0.03 (0.01-0.20) K/uL Sodium 137 (136-145) mmol/L Potassium 3.3 L (3.5-5.1) mmol/L Chloride 98 (98-107) mmol/L Carbon Dioxide 31 (21-32) mmol/L Anion Gap 8 (3-11) BUN 9 (6-23) mg/dl Creatinine 0.59 L (0.6-1.2) mg/dl Est Cr Clr Drug Dosing 105.6 ml/min Est GFR ( Amer) 109.2 ml/min Est GFR (Non-Af Amer) 94.2 ml/min BUN/Creatinine Ratio 15.3 (10-20) Glucose 235 H (70-99(Fasting)) mg/dl Lactate 1.7 (0.4-2.0) mmol/L Calcium 9.6 (8.6-10.3) mg/dl Magnesium 1.9 (1.7-2.4) mg/dl Total Bilirubin 0.9 (0.2-1.0) mg/dl AST 21 (13-39) U/L ALT 17 (7-52) U/L Alkaline Phosphatase 95 (34-104) U/L Total Protein 7.6 (6.0-8.3) gm/dl Albumin 4.0 (3.4-5.0) gm/dl Globulin 3.6 (2.5-4.0) gm/dl Albumin/Globulin Ratio 1.1 (0.9-2) Urine Color Urine Appearance (Clear) Urine pH (4.5-7.5) Ur Specific [place] (1.000-1.030) Urine Protein (Negative) Urine Glucose (UA) (Negative) Urine Ketones (Negative) Urine Blood (Negative) Urine Nitrite (Negative) Urine Bilirubin (Negative) Urine Urobilinogen (Negative) Ur Leukocyte Esterase (Negative) Urine WBC (Auto) (0-5) /hpf Urine RBC (Auto) (0-4) /hpf U Hyaline Cast (Auto) (0-5) /lpf U Epithel Cells (Auto) (0-5) /lpf Urine Bacteria (Auto) (Negative) Adenovirus (PCR) Not Detected (NotDetected) B. pertussis DNA (PCR) Not Detected (NotDetected) B.parapertussis DNA PCR Not Detected (NotDetected) C. pneumoniae DNA (PCR) Not Detected (NotDetected) Coronavirus OC43 (PCR) Not Detected (NotDetected) Coronavirus HKU1 (PCR) Not Detected (NotDetected) Coronavirus 229E (PCR) Not Detected (NotDetected) SARS-CoV-2 (PCR) Not Detected (NotDetected) Coronavirus NL63 (PCR) Not Detected (NotDetected) Human Metapneumovir PCR Not Detected (NotDetected) Influenza Type A (PCR) Not Detected (NotDetected) Influenza Type B (PCR) Not Detected (NotDetected) M. pneumoniae (PCR) Not Detected (NotDetected) Parainfluenza 1 (PCR) Not Detected (NotDetected) Parainfluenza 2 (PCR) Not Detected (NotDetected) Parainfluenza 3 (PCR) Not Detected (NotDetected) Parainfluenza 4 (PCR) Not Detected (NotDetected) RSV (PCR) Not Detected (NotDetected) Entero/Rhino (PCR) Not Detected (NotDetected) 08/12/23 Range/Units 17:18 WBC (4.8-10.8) K/ul RBC (4.20-5.40) M/uL Hgb (12.0-16.0) g/dl Hct (37.0-47.0) % MCV (80.0-100.0) fL MCH (25.0-34.0) pg MCHC (32.0-36.0) g/dL RDW Std Deviation (36.4-46.3) fL RDW Coeff of Charly (11.5-14.5) % Plt Count (130-400) K/uL MPV (9.4-12.4) fL Immature Gran % (Auto) % Neut % (Auto) % Lymph % (Auto) % [place] % (Auto) % Eos % (Auto) % Baso % (Auto) % Neut # (Auto) (1.40-6.50) K/uL Lymph # (Auto) (1.20-3.40) K/uL [place] # (Auto) (0.11-0.59) K/uL Eos # (Auto) (0.00-0.50) K/uL Baso # (Auto) (0.00-0.20) K/uL Immature Gran # (Auto) (0.01-0.20) K/uL Sodium (136-145) mmol/L Potassium (3.5-5.1) mmol/L Chloride (98-107) mmol/L Carbon Dioxide (21-32) mmol/L Anion Gap (3-11) BUN (6-23) mg/dl Creatinine (0.6-1.2) mg/dl Est Cr Clr Drug Dosing ml/min Est GFR ( Amer) ml/min Est GFR (Non-Af Amer) ml/min BUN/Creatinine Ratio (10-20) Glucose (70-99(Fasting)) mg/dl Lactate (0.4-2.0) mmol/L Calcium (8.6-10.3) mg/dl Magnesium (1.7-2.4) mg/dl Total Bilirubin (0.2-1.0) mg/dl AST (13-39) U/L ALT (7-52) U/L Alkaline Phosphatase (34-104) U/L Total Protein (6.0-8.3) gm/dl Albumin (3.4-5.0) gm/dl Globulin (2.5-4.0) gm/dl Albumin/Globulin Ratio (0.9-2) Urine Color Yellow Urine Appearance Cloudy A (Clear) Urine pH 6.0 (4.5-7.5) Ur Specific [place] 1.016 (1.000-1.030) Urine Protein Trace H (Negative) Urine Glucose (UA) Negative (Negative) Urine Ketones Trace H (Negative) Urine Blood Trace H (Negative) Urine Nitrite Positive A (Negative) Urine Bilirubin Negative (Negative) Urine Urobilinogen Negative (Negative) Ur Leukocyte Esterase 2+ H (Negative) Urine WBC (Auto) >30 H (0-5) /hpf Urine RBC (Auto) 0-4 (0-4) /hpf U Hyaline Cast (Auto) 10-30 H (0-5) /lpf U Epithel Cells (Auto) 0-5 (0-5) /lpf Urine Bacteria (Auto) 4+ H (Negative) Adenovirus (PCR) (NotDetected) B. pertussis DNA (PCR) (NotDetected) B.parapertussis DNA PCR (NotDetected) C. pneumoniae DNA (PCR) (NotDetected) Coronavirus OC43 (PCR) (NotDetected) Coronavirus HKU1 (PCR) (NotDetected) Coronavirus 229E (PCR) (NotDetected) SARS-CoV-2 (PCR) (NotDetected) Coronavirus NL63 (PCR) (NotDetected) Human Metapneumovir PCR (NotDetected) Influenza Type A (PCR) (NotDetected) Influenza Type B (PCR) (NotDetected) M. pneumoniae (PCR) (NotDetected) Parainfluenza 1 (PCR) (NotDetected) Parainfluenza 2 (PCR) (NotDetected) Parainfluenza 3 (PCR) (NotDetected) Parainfluenza 4 (PCR) (NotDetected) RSV (PCR) (NotDetected) Entero/Rhino (PCR) (NotDetected) Imaging Data Radiologist's Impression: Head CT 08/12/23 17:[address] DOSE: 625.8 mGy.cm HISTORY: confusion TECHNIQUE: Multiaxial CT images of the head were performed without the use of intravenous contrast. Automated exposure control was utilized for this study. A dose lowering technique was utilized adhering to the principles of ALARA. Comparison: Head CT 07/05/2023. Findings: The paranasal sinuses and mastoid air cells are clear. The calvarium and skull base are intact. [id number] ventriculomegaly again noted. This favors central volume loss. Normal pressure hydrocephalus is also considered in the differential diagnosis but considered less likely. 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 There is no mass, hematoma, midline shift, or acute infarct. Impression: No significant change compared to the prior study. No acute intracranial abnormality. ACT 112: Negative or not required by law. Electronically signed by: Florencio Max M.D. 08/12/2023 6:26 PM Discharge Plan Visit Data Chief Complaint: Urinary Symptoms Stated Complaint: AMS, POSSIBLE UTI ED Provider: Anitha Yañez Discharge Problem: Acute confusion, Acute UTI (urinary tract infection) Forms Stand Alone Forms: [facility] [employer] Prescriptions Prescriptions: No Action (DME) OneTouch Ultra Blue Test Strip Strip See Dose Instructions .ROUTE .MEDSUPPLY Qty: 400 3RF Rx Instructions: test 4 times daily (DME) lancets [OneTouch UltraSoft Lancets[place] [facility] [place]ose [place] .ROUTE .MEDSUPPLY Qty: 400 3RF Dose Instruction: As directed Rx Instructions: Testing 4 times daily (DME) Wheeled Walker [facility] See Rx Instructions .Route Qty: 1 0RF Rx Instructions: As directed (DME) [place] [facility] [place] Instructions .Route Qty: 1 0RF Rx Instructions: Motorized Scooter loratadine [Claritin] 10 mg tablet 10 mg PO DAILY Qty: 90 1RF (DME) pen needle, diabetic [BD Ultra-Fine Araceli Pen Needle] 32 gauge x 5/32" needle See Dose Instructions .ROUTE .MEDSUPPLY Qty: 200 3RF Rx Instructions: use 2 needles daily Ozempic 0.25 mg or 0.5 mg (2 mg/3 mL) pen injector 0.5 mg subcut Q7D 30 Days Qty: 3 1RF Rx Instructions: pt andrea tell me what day she takes this oxybutynin chloride 5 mg tablet See Rx Instructions .ROUTE .COMPLEX Qty: 270 1RF Rx Instructions: Take 1 tab PO in AM, 2 tabs PO qhs; carvedilol 6.25 mg tablet 6.25 mg PO BID Qty: 180 1RF Rx Instructions: for high blood pressure pregabalin 150 mg capsule 150 mg PO BID Qty: 60 0RF duloxetine 60 mg capsule,delayed release(DR/EC) 60 mg PO BID Qty: 60 5RF insulin degludec [Tresiba FlexTouch U-100] 100 unit/mL (3 mL) insulin pen 50 unit SUBCUT HS 90 Days Qty: 45 1RF (DME) blood-glucose meter [OneTouch Ultra2 Meter] Misc See Rx Instructions .ROUTE .MEDSUPPLY Qty: 1 0RF Rx Instructions: Test blood sugars 4 times a day cholecalciferol (vitamin D3) 50 mcg (2,000 unit) capsule 2,000 unit PO QAM omega 1-ppj-ndi-fish oil [Fish Oil] 1,000 mg (120 mg-180 mg) Capsule 1,000 mg PO HS aspirin 81 mg Tablet,Delayed Release (Dr/Ec) 81 mg PO HS calcitonin (salmon) 200 unit/actuation [place],Non-Aerosol 1 spray NA DAILY Qty: 3.7 0RF Women's 50 Plus Daily Formula 400 mcg-500 mg calcium-20 mcg Tablet 1 tab PO QAM acetaminophen 325 mg tablet 650 mg PO QID PRN (Reason: Pain) omeprazole 40 mg capsule,delayed release(DR/EC) 40 mg PO QAM Rx Instructions: TAKE ONE CAPSULE BY MOUTH EVERY DAY tamsulosin 0.4 mg capsule 0.4 mg PO QAM Referrals Referrals: Mer Jack DO [Primary Care Provider] -
[2023-08-12 15:31] LABS: Basophils # (auto) 0.03 K/uL (0.00-0.20); Basophils % (auto) 0.3 %; Eosinophils # (auto) 0.09 K/uL (0.00-0.50); Eosinophils % (auto) 0.9 %; Hematocrit (blood only) 45.8 % (37.0-47.0); Hemoglobin 15.2 g/dl (12.0-16.0); Immature Granulocytes # (auto) 0.03 K/uL (0.01-0.20); Immature Granulocytes % (auto) 0.3 %; Lymphocytes # (auto) 2.79 K/uL (1.20-3.40); Lymphocytes % (auto) 28.1 %; Mean Corpuscular Hemoglobin 30.3 pg (25.0-34.0); Mean Corpuscular Hgb Conc 33.2 g/dL (32.0-36.0); Mean Corpuscular Volume 91.2 fL (80.0-100.0); Mean Platelet Volume 11.7 fL (9.4-12.4); Monocytes # (auto) 0.57 K/uL (0.11-0.59); Monocytes % (auto) 5.7 %; Neutrophils # (auto) 6.41 K/uL (1.40-6.50); Neutrophils % (auto) 64.7 %; Platelet Count 209 K/uL (130-400); RDW Coefficient of Variation 13.1 % (11.5-14.5); Red Blood Count 5.02 M/uL (4.20-5.40); White Blood Count 9.92 K/ul (4.8-10.8)
[2023-08-12 15:48] LABS: Albumin Globulin Ratio 1.1 (0.9-2); BUN Creatinine Ratio 15.3 (10-20); Bilirubin,Total 0.9 mg/dl (0.2-1.0); Calcium 9.6 mg/dl (8.6-10.3); Creatinine Clr Calc Pharmacy 105.6 ml/min; Est GFR (African American) 109.2 ml/min; Est GFR (Non-African American) 94.2 ml/min; Globulin 3.6 gm/dl (2.5-4.0); Magnesium 1.9 mg/dl (1.7-2.4); Potassium 3.3 mmol/L (3.5-5.1); Total Protein 7.6 gm/dl (6.0-8.3)
[2023-08-12 16:42] LABS: Adenovirus PCR Not Detected (NotDetected); Bordetella parapertussis PCR Not Detected (NotDetected); Bordetella pertussis PCR Not Detected (NotDetected); Chlamydia pneumoniae PCR Not Detected (NotDetected); Coronavirus 229E PCR Not Detected (NotDetected); Coronavirus CoV-2 (COVID19)PCR Not Detected (NotDetected); Coronavirus HKU1 PCR Not Detected (NotDetected); Coronavirus NL63 PCR Not Detected (NotDetected); Coronavirus OC43PCR Not Detected (NotDetected); Human Metapneumovirus PCR Not Detected (NotDetected); Influenza A PCR Not Detected (NotDetected); Influenza B PCR Not Detected (NotDetected); Mycoplasma pneumoniae PCR Not Detected (NotDetected); Parainfluenza Virus 1 PCR Not Detected (NotDetected); Parainfluenza Virus 2 PCR Not Detected (NotDetected); Parainfluenza Virus 3 PCR Not Detected (NotDetected); Parainfluenza Virus 4 PCR Not Detected (NotDetected); Respiratory Syncytial VirusPCR Not Detected (NotDetected); Rhinovirus/Enterovirus PCR Not Detected (NotDetected)
[2023-08-12 17:55] LABS: Appearance Urine Cloudy (Clear); Bacteria Urine Automated 4+ (Negative); Bilirubin Urine Negative (Negative); Blood Urine Trace (Negative); Color Urine Yellow; Epithelial Cell Urine Auto 0-5 /lpf (0-5); Glucose Urine UA Negative (Negative); Ketones Urine Trace (Negative); Leukocyte Esterase Urine 2+ (Negative); Nitrite Urine Positive (Negative); Protein Urine Trace (Negative); RBC Urine Automated 0-4 /hpf (0-4); Specific Gravity Urine 1.016 (1.000-1.030); Urobilinogen Urine Negative (Negative); WBC Urine Automated >30 /hpf (0-5)
--- NOTE | 2023-08-12 18:01 | Electrocardiogram Report ---
Test Reason : Blood Pressure : / mmHG Vent. Rate : 062 BPM Atrial Rate : 062 BPM P-R Int : 158 ms QRS Dur : 090 ms QT Int : 424 ms P-R-T Axes : 005 -25 069 degrees QTc Int : 430 ms Normal sinus rhythm Left ventricular hypertrophy with repolarization abnormality Abnormal ECG When compared with ECG of 08-JUL-2023 05:16, Premature ventricular complexes are no longer Present Confirmed by Francisco Poon ([id number]) on 08/12/2023 6:01:46 PM Referred By: REFERRED SELF Confirmed By:Francisco Poon
--- NOTE | 2023-08-12 18:28 | CT Scan Report ---
HEAD CT NONCONTRAST CT DOSE: 625.8 mGy.cm HISTORY: confusion TECHNIQUE: Multiaxial CT images of the head were performed without the use of intravenous contrast. A utomated exposure control was utilized for this study. A dose lowering technique was utilized adheri ng to the principles of ALARA. Comparison: Head CT 07/05/2023. Findings: The paranasal sinuses and mastoid air cells are clear. The calvarium and skull base are int act. Nszd-ib-pmkaxodp ventriculomegaly again noted. This favors central volume loss. Normal pressure hydrocephalus is also considered in the differential diagnosis but considered less likely. There is a n old lacunar infarct within the left basal ganglia, unchanged. There is no mass, hematoma, midline s hift, or acute infarct. Impression: No significant change compared to the prior study. No acute intracranial abnormality. ACT 112: Negative or not required by law. Electronically signed by: Florencio Max M.D. 08/12/2023 6:26 PM
[2023-08-12] MEDS ORDERED: cefTRIAXone SODIUM 2,000 MG/50 ML BAG IV STA (18:32)
--- NOTE | 2023-08-12 18:53 | History & Physical Report ---
Date of Service August 12, 2023 Assessment & Plan (1) Confusion: Plan: -Admit to med/tele -Currently hemodynamically stable, stable on RA, and non-toxic appearing -Son called EMS this am as patient was acutely confused after waking -Son confirms that this is a similar presentation compared to her last admission for metabolic encephalopathy due to a UTI -No focal neuro defects on exam, WBC WNL, no other metabolic abnormalities, CT head/brain wo con negative for acute findings -UA appears consistent with another UTI -Patient also has a hx of mild-moderate generalized brain atrophy and left lacunar infarct, would not be surprised if she has some component of dementia or cognitive decline -Has grown pansensitive e. coli in the past -S/P one dose of Ceftriaxone in the ED, continue with Ceftriaxone for now -Follow urine cultures and tailor abx to results -Will obtain CXR to rule out other sources of infection -Fall precautions with bed alarm while confused -Aspiration precautions -SQ lovenox for DVT PPX -HH/DMII diet with easy to chew texture -AM CBC, BMP, mag (2) Acute UTI (urinary tract infection): Plan: -Noted on UA today -Continue Ceftriaxone -Communication order placed to obtain pre-voiding bladder scan with post-void residual to monitor for urinary retention as she has had 2 admissions in the past month now for UTI -Will continue home flomax (3) Hypokalemia: Plan: -Noted to be 3.1 today -Will give 40 meq PO KCL and 2 bags of 10 meq IV KCL -Mag level is WNL -Continue (4) HTN (hypertension): Plan: -Now stable -Continue home Carvedilol (5) Uncontrolled type 2 diabetes mellitus: Plan: -Noted to be hyperglycemic on arrival at 235 -Monitor BSG ACHS, goal is 110-140 -Normally takes 50 units Degludec HS and Weekly Semaglutide -Will start with 10 units lantus BID and CF of 50 ACHS -HH/DMII diet -Adjust regimen as needed Plan The patient was discussed with Dr. Martinez at the time of the admission History of Present Illness Chief Complaint: AMS Primary Care Provider: DO Gia Acuna is a 68 year old female with a PMH significant for recurrent UTI's causing metabolic encephalopathy, hypertension, C. difficile diarrhea, CAD, diabetic neuropathy, diabetes mellitus, diabetic nephropathy, hyperlipidemia, diabetic peripheral neuropathy, RLS, and ambulatory dysfunction who presented to the [facility] ED via EMS on 08/12/23 after her son found her to be confused, similar to her last admission to [facility] on 07/06/23. She was noted to be hypertensive with systolics in the 180-190's but otherwise stable. Labs were significant for a CBC WNL, potassium of 3.3, glucose of 235, UA consistent with UTI, and full respiratory biofire negative. CT of the head/brain wo con was read as "No significant change compared to the prior study. No acute intracranial abnormality. ". Prior to admission the patient was given a dose of ceftriaxone. At the time of the exam the patient was lying in bed in no acute distress. History was limited as she is currently pleasantly confused. She is alert to self and month at the time of my exam but was unable to tell me why EMS was called earlier today. When asked, she denies pain at rest, chest pain, SOB, abd pain, nausea, vomiting, diarrhea, LE swelling, and recent falls. She did say that she is experiencing dysuria. When asked, she states that she did not take her am medications. I was able to call and speak with her Son, Benedicto Gresham ([phone]), to obtain further history. He states that his mother seemed herself when he spoke with her on the phone last night. This am around 0800 his father called saying that the patient was acting confused and was having increased generalized weakness. When he arrived to their home he states that she was acting the same as when she required admission from 07/06-07/12 which is why he called EMS. He also does not think that the patient took her medications this am. He denies the patient having any falls or trauma overnight or this am prior to EMS arrival. Her confirms that she is a full code. Please refer to Dr. Martinez's attestation for any changes to the treatment plan Allergies Allergy/AdvReac Type Severity Reaction Status Date / Time tetanus toxoid, adsorbed Allergy Severe TROUBLE Verified 12/02/22 11:49 BREATHING Penicillins Allergy Intermediate ITCHINESS Verified 12/02/22 11:49 onion Allergy Unknown ? Verified 12/02/22 11:49 REACTION, ALLERGY SHOWN ON SKIN TEST orange Allergy Unknown PATCH Verified 12/02/22 11:49 TESTED HIVES REACTION atorvastatin [From Lipitor] AdvReac Intermediate Headache Verified 12/02/22 11:49 meperidine AdvReac Intermediate NAUSEA AND Verified 12/02/22 11:49 VOMITING metformin AdvReac Intermediate diarrhea Verified 12/02/22 11:49 morphine AdvReac Intermediate Gets wild Verified 12/02/22 11:49 and has the shakes oxycodone AdvReac Intermediate Nausea/Vomi Verified 12/02/22 11:49 ting tomato AdvReac Intermediate COUGHING Verified 12/02/22 11:49 sulfamethoxazole AdvReac Unknown Unknown Verified 12/02/22 11:49 [From Bactrim] trimethoprim [From Bactrim] AdvReac Unknown Unknown Verified 12/02/22 11:49 Home Medications Medication Instructions Recorded Confirmed Type omega 1-nrw-lrz-fish oil 1,000 mg 1,000 mg PO HS 06/20/18 08/12/23 History (120 mg-180 mg) capsule (Fish Oil) blood sugar diagnostic (OneTouch #400 ea 09/19/20 12/02/22 Rx Ultra Blue Test Strip) lancets (OneTouch UltraSoft #400 ea 09/19/20 12/02/22 Rx Lancets) cholecalciferol (vitamin D3) 50 2,000 unit PO QAM 05/15/21 08/12/23 History mcg (2,000 unit) capsule Wheeled Walker #1 ea 07/09/21 08/13/22 Rx aspirin 81 mg tablet,delayed 81 mg PO HS 04/05/22 08/12/23 History release Scooter #1 ea 06/02/22 10/21/22 Rx calcitonin (salmon) 200 1 spray NA DAILY #3.7 mL 07/07/22 08/12/23 Rx unit/actuation nasal spray acetaminophen 325 mg tablet 650 mg PO QID PRN Pain 09/15/22 08/12/23 History zzekgkvi-ddd-uzdll ac 400 1 tab PO QAM 09/15/22 08/12/23 History mcg-calcium carb 500 mg-vit K1 20 mcg tablet (Women's 50 Plus Daily Formula) loratadine 10 mg tablet (Claritin) 10 mg PO DAILY #90 tabs 12/14/22 08/12/23 Rx BD Ultra-Fine Araceli Pen Needle 32 #200 ea 04/06/23 Rx gauge x 5/32" (pen needle, diabetic) semaglutide 0.25 mg or 0.5 mg (2 0.5 mg (0.736 mL) subcut Q7D 30 04/15/23 08/12/23 Rx mg/3 mL) subcutaneous pen injector days #3 mL (Ozempic) oxybutynin chloride 5 mg tablet See Rx Instructions .Route 05/09/23 08/12/23 Rx .COMPLEX #270 tabs carvedilol 6.25 mg tablet 6.25 mg PO BID #180 tabs 06/08/23 08/12/23 Rx duloxetine 60 mg capsule,delayed 60 mg PO BID #60 caps 06/12/23 08/12/23 Rx release pregabalin 150 mg capsule 150 mg PO BID #60 caps 06/12/23 08/12/23 Rx insulin degludec 100 unit/mL (3 50 unit (0.5 mL) subcut HS 90 days 06/17/23 08/12/23 Rx mL) subcutaneous pen (Tresiba #45 mL FlexTouch U-100 insulin) OneTouch Ultra2 Meter #1 ea 07/07/23 08/12/23 Rx (blood-glucose meter) omeprazole 40 mg capsule,delayed 40 mg PO QAM 08/12/23 08/12/23 History release tamsulosin 0.4 mg capsule 0.4 mg PO QAM 08/12/23 08/12/23 History Past Med/Surg History Medical History Acute alteration in mental status Acute UTI (urinary tract infection) Morbid obesity with BMI of 45.0-49.9, adult Acute encephalopathy Kidney stones Closed compression fracture of L1 vertebra Chest pain Nail complaint Hallux valgus (acquired), left foot Acquired hallux valgus of right foot Acquired claw toe of right foot Acquired claw toe of left foot Diabetes mellitus with diabetic polyneuropathy Urinary incontinence History of cholecystitis Diverticulitis Hypertriglyceridemia Microalbuminuria Type 2 diabetes mellitus with complication Vitamin D deficiency History of anesthesia reaction PT STATES SHE IS SLOW TO WAKE, NO DOCUMENTED ADVERSE REACTION Anemia Diverticulitis Colitis 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 RLS (restless legs syndrome) Osteoarthritis GERD (gastroesophageal reflux disease) Right knee DJD HTN (hypertension) Surgical History History of cholecystectomy 12/28/17 History of total knee replacement R 2016, L 2016 S/P tonsillectomy S/P partial thyroidectomy S/P total hysterectomy History of total left hip arthroplasty 2007 S/P inguinal hernia repair Family History Mother Depression Diabetes Gallbladder disease Hypertension Lung cancer Alzheimer disease Father Lung cancer Bone cancer Grandmother Myocardial infarction Family/Other Breast cancer cousin Ovarian cancer Denies family history of Prostate cancer Colorectal cancer Social History Smoking Status: Former smoker Cigarettes Per Day: TRIED OCC. 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; Second Hand Exposure: No; Hx Alcohol Use: No Hx Substance Use: No Preferred Language: [place] Communication Ability: Effective Visual Impairment: No Limitations Hearing Ability: Normal Grooming Assistant Required: No Beliefs That Will Affect Care: None marital status: Current Living Situation: Spouse current occupational status: retired How many Children do You have: 2 Feels Safe at Home: Yes Safety Concerns: Feels Safe At This Time Diet: regular Diet Comment: regular caffeine: Yes during the past year weight has: remained stable Dental Care, Regularly: Yes Physical Activity Frequency: 1-2 Times per Week Seatbelt Use: always Sunscreen Use: No Assistive Devices: Glasses and Walker Physical Exam Physical Exam: Physical Exam: General: In no acute distress, stated age, well nourished, non-toxic appearing HEENT: Normocephalic, atraumatic, no scleral icterus, pupils around round, symmetrical, and reactive to light, moist mucus membranes, trachea midline, no thyromegaly Chest/Pulm: No respiratory distress, symmetrical chest expansion, clear breath sounds throughout Cardiac: RRR, no murmurs noted Abdomen: Negative for ascites and bruising, normoactive bowel sounds, soft, non-tender to palpation throughout Musculoskeletal: Symmetrical and without signs of acute trauma, upper and lower extremities with full ROM, no atrophy, spasticity, or flaccidity Extremities: Radial, dorsalis pedis, and posterior tibial pulses are intact and symmetrical, no edema noted in the BL LE's Skin: Warm, dry, no rashes , lesions, or scars noted Neuro: Alert and oriented to person and year only, no focal defects, CN II- XII tested and intact, negative cerebellar testing BL, no tremors noted Psych: No acute distress, pleasantly confused but calm and cooperative during the exam, follows directions appropriately Results & Data Results & Data Vital Signs (Past 12 Hours) Vital Signs Pulse Resp BP Pulse Ox O2 Del Method 08/12/23 16:00 61 15 190/104 H 93 Room Air 08/12/23 15:45 61 17 178/81 H 92 Room Air 08/12/23 15:31 61 15 187/78 H 94 Room Air 08/12/23 15:00 60 17 186/81 H 94 Room Air 08/12/23 14:45 59 L 17 199/87 H 92 Room Air 08/12/23 14:41 Room Air 08/12/23 14:40 59 L 08/12/23 14:21 61 19 189/78 H 92 Room Air Laboratory Results Abnormal lab results 08/12/23 08/12/23 Range/Units 14:59 17:18 Potassium 3.3 L (3.5-5.1) mmol/L Creatinine 0.59 L (0.6-1.2) mg/dl Glucose 235 H (70-99(Fasting)) mg/dl Urine Appearance Cloudy A (Clear) Urine Protein Trace H (Negative) Urine Ketones Trace H (Negative) Urine Blood Trace H (Negative) Urine Nitrite Positive A (Negative) Ur Leukocyte Esterase 2+ H (Negative) Urine WBC (Auto) >30 H (0-5) /hpf U Hyaline Cast (Auto) 10-30 H (0-5) /lpf Urine Bacteria (Auto) 4+ H (Negative) Diagnostic Findings Head CT 08/12/23 17:[address] DOSE: 625.8 mGy.cm HISTORY: confusion TECHNIQUE: Multiaxial CT images of the head were performed without the use of intravenous contrast. Automated exposure control was utilized for this study. A dose lowering technique was utilized adhering to the principles of ALARA. Comparison: Head CT 07/05/2023. Findings: The paranasal sinuses and mastoid air cells are clear. The calvarium and skull base are intact. Vdfi-tp-nfrvapsb ventriculomegaly again noted. This favors central volume loss. Normal pressure hydrocephalus is also considered in the differential diagnosis but considered less likely. 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 There is no mass, hematoma, midline shift, or acute infarct. Impression: No significant change compared to the prior study. No acute intracranial abnormality. ACT 112: Negative or not required by law. Electronically signed by: Florencio Max M.D. 08/12/2023 6:26 PM ECG Additional Comments: Normal sinus rhythm Left ventricular hypertrophy with repolarization abnormality Abnormal ECG When compared with ECG of 08-JUL-2023 05:16, Premature ventricular complexes are no longer Present Confirmed by Francisco Poon ([id number]) on 08/12/2023 6:01:46 PM Code Status & VTE Plan Code Status Full code VTE Prophylaxis Plan VTE Prophylaxis will be ordered: Yes Supervising Physician Co-Signing Physician Notes I personally saw and examined the patient. I verified all orozco points and agree with Michael Silva PA-C with the following exceptions and/or additions: 68 year old female presents to the ER with generalized confusion. Previous hospitalization in July for similar symptoms with UTI O/E Alert but orientated to person only, HS RRR, no murmurs, Chest CTAB, Abdo SNT, no CVA tenderness A/P Acute UTI - follow up urine culture, IV ceftriaxone Acute metabolic encephalopathy - suspect due to UTI with likely some underlying dementia (CT head with Lymx-ln-rposazzn ventriculomegaly favoring central volume loss). PG Care Time/CCT Total # of Minutes Spent Total Time Spent with Patient: Total time spent is greater than 50% in coordination of care (as documented) at patient's floor/unit and/or counseling patient: C[place] [address] INT INP/OBS CARE 2/55MIN Patient Type Established Medical Decision Making High Complexity Diagnoses Confusion R41.0 Acute UTI (urinary tract infection) N39.0 Hypokalemia E87.6 Essential hypertension I10 Hypertension type: unspecified Uncontrolled type 2 diabetes mellitus with hyperglycemia E11.65 Glycemic state: with hyperglycemia (4) HTN (hypertension) Hypertension type: unspecified Qualified Code(s): I10 - Essential (primary) hypertension (5) Uncontrolled type 2 diabetes mellitus Glycemic state: with hyperglycemia Qualified Code(s): E11.65 - Type 2 diabetes mellitus with hyperglycemia
[2023-08-12] MEDS ORDERED: CARBOHYDRATES FOR HYPOGLYCEMIA PO PRN (19:16)
[2023-08-12] MEDS ORDERED: GLUCOSE 40% GEL 15 GM TUBE PO PRN (19:16)
[2023-08-12] MEDS ORDERED: DEXTROSE 50% 50 ML SYRINGE IV PRN (19:16)
[2023-08-12] MEDS ORDERED: GLUCAGON FOR INJ 1 MG VIAL SQ PRN (19:16)
[2023-08-12] MEDS ORDERED: GLUCOSE 10 TAB/TUBE PO PRN (19:16)
[2023-08-12] MEDS ORDERED: POTASSIUM CHLORIDE PWD 20 MEQ PACK PO STA (19:25)
[2023-08-12] MEDS: POTASSIUM CHLORIDE / WTR 10 MEQ/100 ML PLCT IV SCH ×2 (20:27→23:45)
--- NOTE | 2023-08-12 23:03 | XRay Report ---
SINGLE VIEW CHEST CLINICAL HISTORY: Change in mental status. FINDINGS: An AP, portable, upright chest radiograph is compared to study dated 07/05/2023 and correlat ed with chest CT dated 12/19/2018. The heart is enlarged. The pulmonary vasculature is not congested. Chronic interstitial thickening is similar to previous. Scarring/atelectasis is noted at the lung bas es. The lungs and pleural spaces are otherwise clear. No pneumothorax is seen. The skeletal structure s. The bony thorax is grossly intact. Arthritic changes in the shoulders. IMPRESSION: Cardiomegaly with no acute cardiopulmonary abnormality identified. ACT 112: Negative or not required by law. Electronically signed by: Jv Carrasquillo M.D. 08/12/2023 11:02 PM
--- OUTSIDE RECORDS SUMMARY | 2023-08-12 23:03 | External Medical Summary ---
Author Name Unknown Address Unknown Organization [id number]:[facility] [id number] [place] [id number] Laboratory Report Ordering Provider Test Date Status KANWAL MORAES 07/18/2023 06:02:00 Final Observation Date Value Abnormality Reference (Units ) Status WBC, Total 07/18/2023 06:02:00 8.71 4.00-10.8 0 (K/uL) Final RBC 07/18/2023 06:02:00 4.62 3.85-5.15 (M/uL) Final Hemoglobin 07/18/2023 06:02:00 14.2 12.0-15.3 (g/dL) Final HCT 07/18/2023 06:02:00 43.6 36.0-45.2 (%) Final MCV 07/18/2023 06:02:00 94.4 81.5-97.5 (fL) Final MCH 07/18/2023 06:02:00 30.7 27.0-34.0 (pg) Final MCHC 07/18/2023 06:02:00 32.6 32.0-36.0 (g/dL) Final RDW 07/18/2023 06:02:00 14.3 11.5-15.5 (%) Final Platelets 07/18/2023 06:02:00 155 140-400 (K /uL) Final MPV 07/18/2023 06:02:00 12.9 6.6-11.1 ( fL) Final Performing Location [facility] [address] [place] [id number]
--- OUTSIDE RECORDS SUMMARY | 2023-08-12 23:03 | External Medical Summary | Summary of Care ---
Author Name Unknown Organization [facility] Address [address] [place] [address] Phone [phone] Care Team Providers Care Quality Assurance Group Leader Name Role Phone Unavailable Primary Care Provider Unavailabl e Encounter Details Date Type Department Care Team (Late st Contact Info) Description 07/18/2023 Orders Only Lab Mobile Ph[facility]bot[facility] [address] [place], [place] [id number] Cassi Mariee MD [address] [place] [address] [address] [place] [place] [id number] DM (diabetes mellitus) ([facility])*; UTI (urinary tract infection); Diabetes mellitus due to underlying condition with hyperosmolarity without nonketotic hyperglycemic-hyperosmol ar coma ([facility]) ([facility]); Urinary tract infection Allergies Active Allergy Reactions Criticality Noted Date Comments Amoxicillin 03/22/2016 Clindamycin 03/22/2016 Meperidine 03/18/2016 Cephalexin 03/22/2016 Lisinopril 06/14/2016 Just doesn't feel right. Metformin Diarrhea 03/18/2016 Morphine 03/18/2016 Penicillins 03/18/2016 Oxycodone-Acetaminophen 03/18/2016 Tetanus Toxoid 03/18/2016 Chest felt heavy documented as of this encounter (statuses as of 07/18/2023) Medications Medication Sig Dispensed Refills Start Date End Date Status Pregabalin (LYRICA) 150 MG Capsule Take 1 Cap by mouth 2 times a day. 60 Cap 5 03/18/2016 Active DULoxetine (CYMBALTA) 60 MG CPEP Take 1 Cap by mouth 2 times a day. Do not cut, crush or chew 60 Cap 5 03/18/2016 Active Liraglutide (VICTOZA) 18 MG/3ML SOPN Inject under the skin once. 0 03/18/2016 Active Vitamin D, Cholecalciferol, 1000 UNITS CAPS Take by mouth. 0 03/18/2016 Active Cinnamon 500 MG Tablet Take 2 Tabs by mouth 2 times a day. 0 03/18/2016 Active Multiple Vitamins-Calcium (ONE-A-DAY WOMENS FORMULA) Tablet Take 1 Tab by mouth daily. 0 03/18/2016 Active fish oil concentrate (OMEGA-3) 1000 MG CAPS Take 1 Cap by mouth once. 0 03/18/2016 Active aspirin 81 MG chewable tablet Take 1 Tab by mouth daily. with food. 0 03/18/2016 Active ONETOUCH ULTRA BLUE STRP 0 05/06/2016 Active BD PEN NEEDLE ADELAIDA U/F 32G X 4 MM 0 05/26/2016 Active Cyanocobalamin (VITAMIN B-12) 1000 MCG Tablet Take 1,000 mcg by mouth daily. 0 Active topiramate (TOPAMAX) 25 MG TABS Take 25 mg by mouth 2 times a day. 0 Active atenolol (TENORMIN) 50 MG Tablet Take 1 Tab by mouth daily. 30 Tab 5 04/13/2017 Active atenolol (TENORMIN) 25 MG Tablet Take 1 Tab by mouth 2 times a day. 60 Tab 5 10/24/2017 Active omeprazole (PRILOSEC) 20 MG CPDR Take 1 Cap by mouth daily. 1 hour before the first meal of the day 30 Cap 5 10/24/2017 Active nortriptyline (PAMELOR) 25 MG Capsule Take 1 Cap by mouth at bedtime. 30 Cap 5 10/24/2017 Active documented as of this encounter (statuses as of 07/18/2023) Active Problems Problem Noted Date Diagnosed Date Body mass index (BMI) of 40.0 to 44.9 in adult 1 Overview: Per Obesity protocol #1 Type 2 diabetes mellitus wit h hemoglobin A1c goal of less than 7.0% 12/20/2016 Morbid obesity due to excess calories 12/20/2016 Nonproliferative diabetic retinopathy of right e ye 09/20/2016 Neuropathy Overview: From pinched nerve in back HTN, goal below 140/90 Acid reflux Generalized osteoarthritis of multiple sites Iron deficiency anemia Restless leg syndrome documented as of this encounter (statuses as of 07/18/2023) Resolved Problems Problem Noted Date Diagnosed Date Resolved Date MEDICATION USE AGREEMENT 03/18/2016 BMI 38.0-38.9,adult 03/18/2016 02/22/20 17 TEAR MENISCUS NEC-CURREN 08/15/2003 Diabetes type 2, controlled 09/20/2016 documented as of this encounter (statuses as of 07/18/2023) Immunizations Name Administration Dates Next Due Hepatitis B, 20+ yrs 10/25/2016,09/20/2016 Pneumococcal Polysaccharide PPV23 (Pneumovax) Seasonal Influenza, Quadrivalent, No Preserve, I M 05/07/2016 documented as of this encounter Social History Tobacco Use Types Packs/Day Years Used Date Smoking Tobacco: Never Comments:Smoked for 1 year a s a teenager Alcohol Use Standard Drinks/Week Comments No 0 (1 standard drink = 0.6 oz pur e alcohol) Sex and Gender Information Value Date Recorded Sex Assigned at Not on file Gender Identity Not on file Sexual Orientation Not on file documented as of this encounter Plan of Treatment Upcoming Encounters Date Type Department Care Team (Late st Contact Info) Description 07/18/2023 8:00 AM EST Laboratory Lab [facility] [place] [address] [facility] [id number] [place] [address] Arrived Scheduled Orders Name Type Priority Associated Diagnoses Orde r Schedule CBC Lab Routine DM (diabetes mellitus) (HCC) UTI (urinary tract infection) Diabetes mellitus due to underlying condition with hyperosmolarity without nonketotic hyperglycemic-hyperosmolar coma ([facility]) (HCC) Urinary tract infection Expected: 07/18/2023, Expires: 07/18/2024 COMPREHENSIVE METABOLIC PANEL Lab Routine DM (diabetes mellitus) (HCC) UTI (urinary tract infection) Diabetes mellitus due to underlying condition with hyperosmolarity without nonketotic hyperglycemic-hyperosmolar coma ([facility]) (HCC) Urinary tract infection Expected: 07/18/2023, Expires: 07/18/2024 Health Maintenance Due Date Last Done Comments Diabetic Foot Exam 1973 Hepatitis C Screening 1973 Cologuard 01/03/2000 Fecal Occult Blood Test 01/03/2000 Sigmoidoscopy 01/03/2000 Zoster Vaccines (1 of 2) 2005 Hepatitis B (3 of 3 - Risk 3-dose series) 03/20/2017 10/25/2016, 09/20/2016 Diabetic Eye Exam 08/06/2017 08/06/2016 Mammogram 10/06/2017 10/06/2016, 01/20/2015 Depression Screening 12/20/2017 12/20/2016 Albumin/Creatinine Ratio 10/26/2018 10/26/2017, 03/01 DXA Scan 01/03/2020 Lipid Panel 10/21/2022 10/21/2017, 03/15/2016 HbA1c 01/10/2023 07/12/2022, 09/30, 02/18/2017, Additional history exists COVID-19 Vaccine ( season) 2023 04/16/2022, 07/20/2021, 10/30/2020, Additional history exists Influenza Vaccine (FLU shot) (#1) 2023 06/22/2019, 05/07/2016, 09/19/2015 GFR 07/12/2023 07/12/2022, 09/30, 02/18/2017, Additional history exists Colonoscopy 05/23/2025 05/23/2015 Colorectal Cancer Screening 05/23/2025 Pneumococcal Vaccine: 65+ Years Completed 08/06/2022, 07/07/2022, 12/28/2018, Additional history exists GARDASIL-HPV IMMUNIZATION SERIES Aged Out No longer eligible based on patient's age to complete this topic MENINGOCOCCAL (MENACTRA/MENVEO) Aged Out No longer eligible based on patient's age to complete this topic documented as of this encounter Medical Devices Not on filedocumented as of this encounter Visit Diagnoses Diagnosis DM (diabetes mellitus) (HCC)- Primary Type II or unspecified type diabetes mellitus without mention of complication, not stated as uncontrolled UTI (urinary tract infection) Urinary tract infection, site not specified Diabetes mellitus due to underlying condition with hyperosmolarity without nonketotic hyperglycemic-hyperosmolar coma ([facility]) (HCC) Secondary diabetes mellitus with hyperosmolarity, not stated as uncontrolled, or unspecified Urinary tract infection Urinary tract infection, site not specified documented in this encounter
--- OUTSIDE RECORDS SUMMARY | 2023-08-12 23:03 | External Medical Summary | Continuity Of Care Document ---
Author Name Unknown Address [address] [place] [address] Organization [facility] ( ) Care Team Providers Care Vocational Nursing Instructor Name Role Phone Cassi Mariee Primary Care Provider [phone] Problems Code Description Start Date End Date Status G93.41 Metabolic encephalopathy 07/12/2023 Active I10. Essential (primary) hypertension 07/12/2023 Active R41.0 Disorientation, unspecified 07/12/2023 Active R74.8 Abnormal levels of other serum enzymes 07/12/20 Active E83.42 Hypomagnesemia 07/12/2023 Active N39.0 Urinary tract infection, site not specified 07/2023 Active I25.10 Atherosclerotic hear t disease of [place] coronary artery without angina pectoris 07/12/2023 Active R26.9 Unspecified abnormalities of gait and mobility 07/12/2023 Active E11.9 Type 2 diabetes mellitus without complications 07/12/2023 Active E11.42 Type 2 diabetes terrence itus with diabetic polyneuropathy 07/12/2023 Active E66.01 Morbid (severe) obesity due to excess calories 07/12/2023 Active VITAL SIGNS Date Time Diastolic blood pressure Systolic blood pressure Body height Body weight Temperature SpO2 Blood Sugar Pulse Respirations 62131 8 66.00 mm[Hg] - Sitting 152.00 mm[Hg] - Sitting 97.50 Ear 53.00/ min 16.00/min 36673 4 62.00 mm[Hg] - Sitting 142.00 mm[Hg] - Sitting 63 NI 234.00 NI 97.80 Ear 95.00 % 20.00/min 213 35457 1 213 77091 8 17898 213 51942 0 230.00 [place] [address] 213 07424 5 83.00 mm[Hg] - Sitting 141.00 mm[Hg] - Sitting 98.10 Ear 92.00 % 63.00/ min 28078 214 65469 7 83.00 mm[Hg] - Sitting 141.00 mm[Hg] - Sitting 98.10 Ear 63.00/ min 20.00/min 92376 214 77068 9 74.00 mm[Hg] - Sitting 125.00 mm[Hg] - Sitting 98.10 Ear 94.00 % 56.00/ min 44874 215 05987 7 79943 215 79829 0 101.00 mm[Hg] - Sitting 158.00 mm[Hg] - Sitting 97.40 Ear 95.00 % 75.00/ min 31010 215 76570 0 52.00 mm[Hg] - Sitting 118.00 mm[Hg] - Sitting 216 96522 0 65.00 mm[Hg] - Sitting 119.00 mm[Hg] - Sitting 141.00 mg/dL 64.00/ min 18.00/min 18360 217 39366 0 79.00 mm[Hg] - Sitting 125.00 mm[Hg] - Sitting 97.60 Oral 95.00 % 56.00/ min 09432 217 67004 9 88.00 mm[Hg] - Lying Down 150.00 mm[Hg] - Lying Down 62.00/ min 18.00/min 29778 217 11566 7 86.00 mm[Hg] - Sitting 133.00 mm[Hg] - Sitting 97.60 Oral 92.00 % 54.00/ min 96436 218 18038 0 231[place]00 [place] [address] 218 84952 1 56.00 mm[Hg] - Sitting 122.00 mm[Hg] - Sitting 97.60 Ear 93.00 % 54.00/ min 33868 218 83119 3 229.00 NI [address]7840 219 49725 4 92.00 mm[Hg] - Sitting 149.00 mm[Hg] - Sitting 97.70 Ear 96.00 % 66.00/ min 02945 220 30772 0 75.00 mm[Hg] - Sitting 161.00 mm[Hg] - Sitting 97.10 Ear 94.00 % 64.00/ min 09355 220 00675 1 230.00 NI Immunizations Vaccine Date Status COVID-19 10/09/2020 Completed COVID-19 10/30/2020 Completed COVID-19 07/20/2021 Completed COVID-19 04/16/2022 Completed Hepatitis B 09/20/2016 Completed Hepatitis B 10/25/2016 Completed Influenza 04/16/2022 Completed (PCV13)Pneumococcal 12/28/2018 Completed (PPSV23)Pneumococcal 09/20/2016 Completed
--- OUTSIDE RECORDS SUMMARY | 2023-08-12 23:03 | External Medical Summary ---
Author Name Unknown Address Unknown Organization [facility] [address] [place] [address] Laboratory Report Ordering Provider Test Date Status KANWAL MORAES 07/18/2023 06:02:00 Final Observation Date Value Abnormality Reference (Units ) Status BUN 07/18/2023 06:02:00 10 6-20 (mg/dL) Final Creatinine 07/18/2023 06:02:00 0.6 0.5-1.0 (mg/dL) Final Glomerular filtration rate/1.73 sq M.predicted [Volume Rate/Area] in Serum, Plasma or Blood by Creatinine-based formula (CKD-EPI) 07/18/2023 06:02:00 >90 >=60 (mL/min) Final eGFR is calculated based on the CKD-EPI 2020 equation SODIUM 07/18/2023 06:02:00 139 135-146 (m mol/L) Final Potassium 07/18/2023 06:02:00 4.4 3.5-5.1 (m mol/L) Final Cl 07/18/2023 06:02:00 103 98-107 (mm ol/L) Final CO2 07/18/2023 06:02:00 27 22-32 (mmo l/L) Final Anion gap 07/18/2023 06:02:00 9 7-15 (mmol /L) Final Glucose 07/18/2023 06:02:00 107 70-120 (mg /dL) Final Albumin 07/18/2023 06:02:00 3.5 Below low normal 3.8 -5.0 (g/dL) Final AST (Aspartate aminotransferase) 07/18/2023 06:02:00 21 10-35 (U/L) Fin al Result may be falsely elevat ed due to hemolysis. Alk Phos 07/18/2023 06:02:00 85 35-130 (U/ L) Final Bilirubin, Total 07/18/2023 06:02:00 0.4 <=1 .2 (mg/dL) Final Calcium 07/18/2023 06:02:00 9.4 8.4-10.2 ( mg/dL) Final Protein 07/18/2023 06:02:00 6.2 6.0-8.3 (g /dL) Final ALT (Alanine aminotransferase) 07/18/2023 06:02:00 18 10-35 (U/L) Final [facility] [place] [address]
--- OUTSIDE RECORDS SUMMARY | 2023-08-12 23:03 | External Medical Summary | Continuity Of Care Document ---
Author Name Unknown Address [address] [place] [address] Organization [facility] ( ) Care Team Providers Care Network Support Specialist Name Role Phone Cassi Mariee Primary Care Provider [phone] Problems Code Description Start Date End Date Status G93.41 Metabolic encephalopathy 07/12/2023 Active I10. Essential (primary) hypertension 07/12/2023 Active R41.0 Disorientation, unspecified 07/12/2023 Active R74.8 Abnormal levels of other serum enzymes 07/12/20 Active E83.42 Hypomagnesemia 07/12/2023 Active N39.0 Urinary tract infection, site not specified 07/2023 Active I25.10 Atherosclerotic hear t disease of [place] coronary artery without angina pectoris 07/12/2023 Active R26.9 Unspecified abnormalities of gait and mobility 07/12/2023 Active E11.9 Type 2 diabetes mellitus without complications 07/12/2023 Active E11.42 Type 2 diabetes terrence itus with diabetic polyneuropathy 07/12/2023 Active VITAL SIGNS Date Time Diastolic blood pressure Systolic blood pressure Body height Body weight Temperature SpO2 Blood Sugar Pulse Respirations 24221 8 66.00 mm[Hg] - Sitting 152.00 mm[Hg] - Sitting 97.50 Ear 53.00/ min 16.00/min 212 44188 4 62.00 mm[Hg] - Sitting 142.00 mm[Hg] - Sitting 63 NI 234.00 NI 97.80 Ear 95.00 % 20.00/min 213 94080 1 213 47302 8 16341 213 53132 0 230.00 NI 213 06131 5 83.00 mm[Hg] - Sitting 141.00 mm[Hg] - Sitting 98.10 Ear 92.00 % 63.00/ min 94583 214 58490 7 83.00 mm[Hg] - Sitting 141.00 mm[Hg] - Sitting 98.10 Ear 63.00/ min 20.00/min 91889 214 97480 9 74.00 mm[Hg] - Sitting 125.00 mm[Hg] - Sitting 98.10 Ear 94.00 % 56.00/ min 62421 215 88795 7 33160 215 02833 0 101.00 mm[Hg] - Sitting 158.00 mm[Hg] - Sitting 97.40 Ear 95.00 % 75.00/ min 31261 215 62877 0 52.00 mm[Hg] - Sitting 118.00 mm[Hg] - Sitting 49617 216 26096 0 65.00 mm[Hg] - Sitting 119.00 mm[Hg] - Sitting 141.00 mg/dL 64.00/ min 18.00/min 20091 217 05886 0 79.00 mm[Hg] - Sitting 125.00 mm[Hg] - Sitting 97.60 Oral 95.00 % 56.00/ min 217 56065 9 88.00 mm[Hg] - Lying Down 150.00 mm[Hg] - Lying Down 62.00/ min 18.00/min 56264 217 55811 7 86.00 mm[Hg] - Sitting 133.00 mm[Hg] - Sitting 97.60 Oral 92.00 % 54.00/ min 53056 218 45390 0 231.00 [place] [address]055 218 26402 1 56.00 mm[Hg] - Sitting 122.00 mm[Hg] - Sitting 97.60 Ear 93.00 % 54.00/ min 218 63150 3 229.00 [place] [address]166 219 13465 4 92.00 mm[Hg] - Sitting 149.00 mm[Hg] - Sitting 97.70 Ear 96.00 % 66.00/ min Immunizations Vaccine Date Status COVID-19 10/09/2020 Completed COVID-19 10/30/2020 Completed COVID-19 07/20/2021 Completed COVID-19 04/16/2022 Completed Hepatitis B 09/20/2016 Completed Hepatitis B 10/25/2016 Completed Influenza 04/16/2022 Completed (PCV13)Pneumococcal 12/28/2018 Completed (PPSV23)Pneumococcal 09/20/2016 Completed
--- OUTSIDE RECORDS SUMMARY | 2023-08-12 23:03 | External Medical Summary | Continuity Of Care Document ---
Author Name Unknown Address [address] [place] [address] Organization [facility] ( ) Care Team Providers Care Galvanizer Name Role Phone Cassi Mariee Primary Care Provider [phone] Problems Code Description Start Date End Date Status G93.41 Metabolic encephalopathy 07/12/2023 Active I10. Essential (primary) hypertension 07/12/2023 Active R41.0 Disorientation, unspecified 07/12/2023 Active R74.8 Abnormal levels of other serum enzymes 07/12/20 Active E83.42 Hypomagnesemia 07/12/2023 Active N39.0 Urinary tract infection, site not specified 07/2023 Active I25.10 Atherosclerotic hear t disease of [place] coronary artery without angina pectoris 07/12/2023 Active R26.9 Unspecified abnormalities of gait and mobility 07/12/2023 Active E11.9 Type 2 diabetes mellitus without complications 07/12/2023 Active E11.42 Type 2 diabetes terrence itus with diabetic polyneuropathy 07/12/2023 Active VITAL SIGNS Date Time Diastolic blood pressure Systolic blood pressure Body height Body weight Temperature SpO2 Blood Sugar Pulse Respirations 25562 8 66.00 mm[Hg] - Sitting 152.00 mm[Hg] - Sitting 97.50 Ear 53.00/ min 16.00/min 212 99467 4 62.00 mm[Hg] - Sitting 142.00 mm[Hg] - Sitting 63 NI 234.00 NI 97.80 Ear 95.00 % 20.00/min 213 13838 1 213 24641 8 98297 213 78790 0 230.00 NI 213 82852 5 83.00 mm[Hg] - Sitting 141.00 mm[Hg] - Sitting 98.10 Ear 92.00 % 63.00/ min 09516 214 89297 7 83.00 mm[Hg] - Sitting 141.00 mm[Hg] - Sitting 98.10 Ear 63.00/ min 20.00/min 62725 214 01529 9 74.00 mm[Hg] - Sitting 125.00 mm[Hg] - Sitting 98.10 Ear 94.00 % 56.00/ min 65519 215 69408 7 05408 215 90820 0 101.00 mm[Hg] - Sitting 158.00 mm[Hg] - Sitting 97.40 Ear 95.00 % 75.00/ min 53592 215 45077 0 52.00 mm[Hg] - Sitting 118.00 mm[Hg] - Sitting 84649 216 41744 0 65.00 mm[Hg] - Sitting 119.00 mm[Hg] - Sitting 141.00 mg/dL 64.00/ min 18.00/min 37648 217 81381 0 79.00 mm[Hg] - Sitting 125.00 mm[Hg] - Sitting 97.60 Oral 95.00 % 56.00/ min 217 83167 9 88.00 mm[Hg] - Lying Down 150.00 mm[Hg] - Lying Down 62.00/ min 18.00/min 56368 217 50466 7 86.00 mm[Hg] - Sitting 133.00 mm[Hg] - Sitting 97.60 Oral 92.00 % 54.00/ min 49061 218 60384 0 231[place]00 [place] [address] 218 62283 1 56.00 mm[Hg] - Sitting 122.00 mm[Hg] - Sitting 97.60 Ear 93.00 % 54.00/ min 218 97032 3 229.00 NI [address]172 219 71593 4 92.00 mm[Hg] - Sitting 149.00 mm[Hg] - Sitting 97.70 Ear 96.00 % 66.00/ min Immunizations Vaccine Date Status COVID-19 10/09/2020 Completed COVID-19 10/30/2020 Completed COVID-19 07/20/2021 Completed COVID-19 04/16/2022 Completed Hepatitis B 09/20/2016 Completed Hepatitis B 10/25/2016 Completed Influenza 04/16/2022 Completed (PCV13)Pneumococcal 12/28/2018 Completed (PPSV23)Pneumococcal 09/20/2016 Completed
--- OUTSIDE RECORDS SUMMARY | 2023-08-12 23:04 | External Medical Summary | Continuity Of Care Document ---
Author Name Unknown Address [address] [place] [address] Organization [facility] ( ) Care Team Providers Care Quantitative Strategy Analyst Name Role Phone Cassi Mariee Primary Care Provider [phone] VITAL SIGNS Date Time Diastolic blood pressure Systolic blood pressure Body height Body weight Temperature SpO2 Blood Sugar Pulse Respirations 212 34476 8 66.00 mm[Hg] - Sitting 152.00 mm[Hg] - Sitting 97.50 Ear 53.00/ min 16.00/min 212 45674 4 62.00 mm[Hg] - Sitting 142.00 mm[Hg] - Sitting 63 NI 234.00 NI 97.80 Ear 95.00 % 20.00/min 213 85178 8 Immunizations Vaccine Date Status COVID-19 10/09/2020 Completed COVID-19 10/30/2020 Completed COVID-19 07/20/2021 Completed COVID-19 04/16/2022 Completed Hepatitis B 09/20/2016 Completed Hepatitis B 10/25/2016 Completed Influenza 04/16/2022 Completed (PCV13)Pneumococcal 12/28/2018 Completed (PPSV23)Pneumococcal 09/20/2016 Completed
[2023-08-12] MEDS: INSULIN ASPART PER UNIT CHARGE SC SCH (23:46)
[2023-08-12] MEDS: LANTUS PER UNIT CHARGE SQ SCH (23:46)
[2023-08-12] MEDS: oxyBUTYnin chloride 5 MG TAB PO SCH (23:56)
[2023-08-12] MEDS: carvediloL 6.25 MG TAB PO SCH (23:56)
[2023-08-12] MEDS: DULoxetine HCL 60 MG CAP PO SCH (23:56)
[2023-08-12] MEDS: ASPIRIN 81 MG ECTAB PO SCH (23:56)
[2023-08-12] MEDS: ENOXAPARIN INJ 40 MG/0.4 ML SYR SQ SCH (23:56)
[2023-08-12] MEDS: PREGABALIN 150 MG CAP PO SCH (23:59)
[2023-08-13] MEDS: LANTUS PER UNIT CHARGE SQ SCH ×2 (08:42→20:59)
[2023-08-13] MEDS: INSULIN ASPART PER UNIT CHARGE SC SCH ×4 (08:43→20:59)
[2023-08-13] MEDS: carvediloL 6.25 MG TAB PO SCH ×2 (08:44→20:59)
[2023-08-13] MEDS: CALCITONIN SALMON NA 200 IU/AC 3.7 ML BTL SCH (08:44)
[2023-08-13] MEDS: TAMSULOSIN HCL 0.4 MG CAP PO SCH (08:46)
[2023-08-13] MEDS: PANTOprazole 40 MG TAB PO SCH (08:46)
[2023-08-13] MEDS: oxyBUTYnin chloride 5 MG TAB PO SCH ×3 (08:46→20:59)
[2023-08-13] MEDS: DULoxetine HCL 60 MG CAP PO SCH ×2 (08:46→20:59)
[2023-08-13] MEDS: PREGABALIN 150 MG CAP PO SCH ×2 (08:50→21:08)
[2023-08-13 12:27] LABS: BUN Creatinine Ratio 18.9 (10-20); Calcium 9.6 mg/dl (8.6-10.3); Creatinine Clr Calc Pharmacy 82.9 ml/min; Est GFR (African American) 96.5 ml/min; Est GFR (Non-African American) 83.2 ml/min; Magnesium 1.9 mg/dl (1.7-2.4); Potassium 4.2 mmol/L (3.5-5.1)
--- NOTE | 2023-08-13 12:58 | Hospitalist Progress Note ---
Date of Service August 13, 2023 Assessment & Plan (1) Acute metabolic encephalopathy: Plan: Likely secondary to UTI Improving CT head negative Continue treatment for UTI (2) Acute UTI (urinary tract infection): Plan: -Noted on UA today Urine culture growing gram-negative crystal, awaiting further identification and sensitivities -Continue Ceftriaxone -Communication order placed to obtain pre-voiding bladder scan with post-void residual to monitor for urinary retention as she has had 2 admissions in the past month now for UTI -Will continue home flomax (3) Hypokalemia: Plan: Repleted -Mag level is WNL -Continue (4) HTN (hypertension): Plan: -Now stable -Continue home Carvedilol (5) Uncontrolled type 2 diabetes mellitus: Plan: -Noted to be hyperglycemic on arrival at 235 -Monitor BSG ACHS, goal is 110-140 -Normally takes 50 units Degludec HS and Weekly Semaglutide -Will start with 10 units lantus BID and CF of 50 ACHS -HH/DMII diet -Adjust regimen as needed Admission and Anticipated Discharge Date Admission Date: August 12, 2023 Subjective Patient says that she is feeling better today. She is alert and oriented x 3. Says that her brain was foggy but is clearing up quite a bit. She is still very weak. Review of Systems Review of Systems: All systems reviewed & are unremarkable except as noted in Subjective Physical Exam Physical Exam: General: Awake, conversant Heart: S1, S2/regular rate and rhythm, no murmur rubs or gallops Lungs: Clear to auscultation bilaterally. Normal effort Abdomen: Soft/nontender/nondistended. No hepatosplenomegaly Extremities: No clubbing/cyanosis. No edema Behavior: Appropriate, cooperative Results & Data Results & Data Vital Signs (Past 12 Hours) Vital Signs Temp Pulse Pulse Resp BP BP Pulse Ox 08/13/23 11:34 36.6 C 61 16 112/59 L 92 08/13/23 08:11 36.8 C 57 L 18 150/79 H 92 08/13/23 08:00 60 08/13/23 04:27 37.0 C 66 20 152/83 H 92 08/13/23 01:00 160/78 H O2 Del Method 08/13/23 11:34 Room Air 08/13/23 08:11 Room Air 08/13/23 08:00 08/13/23 04:27 Room Air 08/13/23 01:00 Laboratory Results Abnormal lab results 08/12/23 08/12/23 08/12/23 Range/Units 14:59 17:18 21:29 Potassium 3.3 L (3.5-5.1) mmol/L Creatinine 0.59 L (0.6-1.2) mg/dl Glucose 235 H (70-99(Fasting)) mg/dl POC Glucose 167 H (70-99) mg/dl Urine Appearance Cloudy A (Clear) Urine Protein Trace H (Negative) Urine Ketones Trace H (Negative) Urine Blood Trace H (Negative) Urine Nitrite Positive A (Negative) Ur Leukocyte Esterase 2+ H (Negative) Urine WBC (Auto) >30 H (0-5) /hpf U Hyaline Cast (Auto) 10-30 H (0-5) /lpf Urine Bacteria (Auto) 4+ H (Negative) 08/13/23 08/13/23 08/13/23 Range/Units 08:25 10:48 12:17 Potassium (3.5-5.1) mmol/L Creatinine (0.6-1.2) mg/dl Glucose 278 H (70-99(Fasting)) mg/dl POC Glucose 180 H 231 H (70-99) mg/dl Urine Appearance (Clear) Urine Protein (Negative) Urine Ketones (Negative) Urine Blood (Negative) Urine Nitrite (Negative) Ur Leukocyte Esterase (Negative) Urine WBC (Auto) (0-5) /hpf U Hyaline Cast (Auto) (0-5) /lpf Urine Bacteria (Auto) (Negative) Diagnostic Findings Head CT 08/12/23 17:[address] DOSE: 625.8 mGy.cm HISTORY: confusion TECHNIQUE: Multiaxial CT images of the head were performed without the use of intravenous contrast. Automated exposure control was utilized for this study. A dose lowering technique was utilized adhering to the principles of ALARA. Comparison: Head CT 07/05/2023. Findings: The paranasal sinuses and mastoid air cells are clear. The calvarium and skull base are intact. [id number]-[id number] ventriculomegaly again noted. This favors central volume loss. Normal pressure hydrocephalus is also considered in the differential diagnosis but considered less likely. 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 There is no mass, hematoma, midline shift, or acute infarct. Impression: No significant change compared to the prior study. No acute intracranial abnormality. ACT 112: Negative or not required by law. Electronically signed by: Florencio Max M.D. 08/12/2023 6:26 PM Chest X-Ray 08/12/23 19:32 SINGLE VIEW CHEST CLINICAL HISTORY: Change in mental status. FINDINGS: An AP, portable, upright chest radiograph is compared to study dated 07/05/2023 and correlated with chest CT dated 12/19/2018. The heart is enlarged. The pulmonary vasculature is not congested. Chronic interstitial thickening is similar to previous. Scarring/atelectasis is noted at the lung bases. The lungs and pleural spaces are otherwise clear. No pneumothorax is seen. The skeletal structures. The bony thorax is grossly intact. Arthritic changes in the shoulders. IMPRESSION: Cardiomegaly with no acute cardiopulmonary abnormality identified. ACT 112: Negative or not required by law. Electronically signed by: Jv Carrasquillo M.D. 08/12/2023 11:02 PM PG Care Time/CCT Total # of Minutes Spent Total Time Spent with Patient: Total time spent is greater than 50% in coordination of care (as documented) at patient's floor/unit and/or counseling patient: Coding Level of Care Code 59896 SUB INP/OBS CARE 2/35MIN Diagnoses Acute metabolic encephalopathy G93.41 Acute UTI (urinary tract infection) N39.0 Hypokalemia E87.6 Essential hypertension I10 Hypertension type: unspecified Uncontrolled type 2 diabetes mellitus with hyperglycemia E11.65 Glycemic state: with hyperglycemia (4) HTN (hypertension) Hypertension type: unspecified Qualified Code(s): I10 - Essential (primary) hypertension (5) Uncontrolled type 2 diabetes mellitus Glycemic state: with hyperglycemia Qualified Code(s): E11.65 - Type 2 di abetes mellitus with hyperglycemia
[2023-08-13] MEDS: ASPIRIN 81 MG ECTAB PO SCH (20:59)
[2023-08-13] MEDS: ENOXAPARIN INJ 40 MG/0.4 ML SYR SQ SCH (20:59)
[2023-08-13] MEDS: cefTRIAXone SODIUM 2,000 MG in DEXTROSE 5 % MINI-B 50 ML IV SCH (21:04)
[2023-08-14] MEDS: INSULIN ASPART PER UNIT CHARGE SC SCH ×4 (09:22→20:42)
[2023-08-14] MEDS: LANTUS PER UNIT CHARGE SQ SCH ×2 (09:22→20:42)
[2023-08-14] MEDS: oxyBUTYnin chloride 5 MG TAB PO SCH ×3 (09:23→20:44)
[2023-08-14] MEDS: DULoxetine HCL 60 MG CAP PO SCH ×2 (09:23→20:43)
[2023-08-14] MEDS: carvediloL 6.25 MG TAB PO SCH ×2 (09:23→20:43)
[2023-08-14] MEDS: PANTOprazole 40 MG TAB PO SCH (09:26)
[2023-08-14] MEDS: TAMSULOSIN HCL 0.4 MG CAP PO SCH (09:26)
[2023-08-14] MEDS: CALCITONIN SALMON NA 200 IU/AC 3.7 ML BTL SCH (09:26)
[2023-08-14] MEDS: PREGABALIN 150 MG CAP PO SCH ×2 (09:31→20:42)
[2023-08-14] MEDS: ACETAMINOPHEN 325 MG TAB PO PRN (10:35)
--- NOTE | 2023-08-14 12:03 | Hospitalist Progress Note ---
Date of Service August 14, 2023 Assessment & Plan (1) Acute metabolic encephalopathy: Plan: Likely secondary to UTI Resolved CT head negative Continue treatment for UTI (2) Acute UTI (urinary tract infection): Plan: -Noted on UA today Urine culture growing E. coli again, pansensitive -Continue Ceftriaxone. May be switched to a p.o. antibiotic at the time of discharge -Communication order placed to obtain pre-voiding bladder scan with post-void residual to monitor for urinary retention as she has had 2 admissions in the past month now for UTI -Will continue home flomax (3) Hypokalemia: Plan: Repleted -Mag level is WNL -Continue (4) HTN (hypertension): Plan: -Now stable -Continue home Carvedilol (5) Uncontrolled type 2 diabetes mellitus: Plan: -Noted to be hyperglycemic on arrival at 235 -Monitor BSG ACHS, goal is 110-140 -Normally takes 50 units Degludec HS and Weekly Semaglutide -Will start with 10 units lantus BID and CF of 50 ACHS -HH/DMII diet -Adjust regimen as needed Plan PT/OT recommends rehab Case management will need to work on it Spoke to son and updated him about the plan. Admission and Anticipated Discharge Date Admission Date: August 12, 2023 Subjective Patient feels better overall. From a mental standpoint, she is back to her usual baseline. She is able to think normally. She says that her brain fog has cleared. She does complain of feeling generally weak however. Review of Systems Review of Systems: All systems reviewed & are unremarkable except as noted in Subjective Physical Exam Physical Exam: General: Awake, conversant Heart: S1, S2/regular rate and rhythm, no murmur rubs or gallops Lungs: Clear to auscultation bilaterally. Normal effort Abdomen: Soft/nontender/nondistended. No hepatosplenomegaly Extremities: No clubbing/cyanosis. No edema Behavior: Appropriate, cooperative Results & Data Results & Data Vital Signs (Past 12 Hours) Vital Signs Temp Pulse Pulse Resp BP BP Pulse Ox 08/14/23 11:06 36.4 C L 61 18 150/70 H 95 08/14/23 10:28 70 08/14/23 07:24 08/14/23 07:23 36.6 C 57 L 16 155/76 H 95 08/14/23 00:28 36.7 C 61 20 143/64 H 92 O2 Del Method 08/14/23 11:06 Room Air 08/14/23 10:28 08/14/23 07:24 Room Air 08/14/23 07:23 Room Air 08/14/23 00:28 Room Air Laboratory Results Abnormal lab results 08/13/23 08/13/23 08/13/23 Range/Units 10:48 12:17 17:10 Glucose 278 H (70-99(Fasting)) mg/dl POC Glucose 231 H 214 H (70-99) mg/dl 08/13/23 08/14/23 Range/Units 20:51 08:18 Glucose (70-99(Fasting)) mg/dl POC Glucose 242 H 160 H (70-99) mg/dl PG Care Time/CCT Total # of Minutes Spent Total Time Spent with Patient: Total time spent is greater than 50% in coordination of care (as documented) at patient's floor/unit and/or counseling patient: Coding Level of Care Code 34758 SUB INP/OBS CARE 235MIN Diagnoses Acute metabolic encephalopathy G93.41 Acute UTI (urinary tract infection) N39.0 Hypokalemia E87.6 Essential hypertension I10 Hypertension type: unspecified Uncontrolled type 2 diabetes mellitus with hyperglycemia E11.65 Glycemic state: with hyperglycemia (4) HTN (hypertension) Hypertension type: unspecified Qualified Code(s): I10 - Essential (primary) hypertension (5) Uncontrolled type 2 diabetes mellitus Glycemic state: with hyperglycemia Qualified Code(s): E11.65 - Type 2 diabetes mellitus with hyperglycemia
[2023-08-14] MEDS: cefTRIAXone SODIUM 2,000 MG in DEXTROSE 5 % MINI-B 50 ML IV SCH (19:38)
[2023-08-14] MEDS: ENOXAPARIN INJ 40 MG/0.4 ML SYR SQ SCH (20:43)
[2023-08-14] MEDS: ASPIRIN 81 MG ECTAB PO SCH (20:43)
[2023-08-15] MEDS: INSULIN ASPART PER UNIT CHARGE SC SCH ×4 (08:24→20:53)
[2023-08-15] MEDS: PANTOprazole 40 MG TAB PO SCH (08:48)
[2023-08-15] MEDS: TAMSULOSIN HCL 0.4 MG CAP PO SCH (08:48)
[2023-08-15] MEDS: carvediloL 6.25 MG TAB PO SCH ×2 (08:48→20:54)
[2023-08-15] MEDS: DULoxetine HCL 60 MG CAP PO SCH ×2 (08:48→20:54)
[2023-08-15] MEDS: oxyBUTYnin chloride 5 MG TAB PO SCH ×3 (08:49→20:56)
[2023-08-15] MEDS: CALCITONIN SALMON NA 200 IU/AC 3.7 ML BTL SCH (08:49)
[2023-08-15] MEDS: PREGABALIN 150 MG CAP PO SCH ×2 (08:50→20:53)
[2023-08-15] MEDS: LANTUS PER UNIT CHARGE SQ SCH ×2 (08:50→20:53)
--- NOTE | 2023-08-15 10:28 | Hospitalist Progress Note ---
Date of Service August 15, 2023 Assessment & Plan (1) Acute metabolic encephalopathy: Plan: Likely secondary to UTI Resolved CT head negative (2) Acute UTI (urinary tract infection): Plan: Urine culture growing E. coli again, pansensitive -Continue Ceftriaxone. May be switched to a p.o. antibiotic at the time of discharge -Communication order placed to obtain pre-voiding bladder scan with post-void residual to monitor for urinary retention as she has had 2 admissions in the past month now for UTI --> not done yet, RN aware will attempt today -Will continue home flomax -Per chart reviewed with D/c 09/2022 patient wasnt taking it. No PCP note since. Patient reports she started taking this at night since she was d/c from rehab and noticed she is having nocturia with incontinence episodes. Has been taking qAM here. -Will add topical estrogen cream for UTI prevention, nightly x14 days then twice a week. (3) Hypokalemia: Plan: Repleted PO and IV -Mag level is WNL -Resolved, last K 4.2 (4) HTN (hypertension): Plan: -Now stable -Continue home Carvedilol -also for PACs (5) Uncontrolled type 2 diabetes mellitus: Plan: -Noted to be hyperglycemic on arrival at [facility] -Home rigement: 50 units Degludec HS and Weekly Semaglutide -Monitor BSG ACHS, goal is 110-140 -10 units lantus BID and CF of 50 ACHS, add Carb ratio 1:20 -Adjust regimen as needed -Patient has not been checking sugars at home because glucometer batteries , needs a new one set to the pharmacy (ordered). Plan Dispo: medically Stable, continued inpatient stay while waiting rehab placement updated at bedside Admission and Anticipated Discharge Date Admission Date: August 12, 2023 Supervising Physician Co-Signing Physician Notes Attending Attestation - Chart reviewed, care plan d/w CHELSY Bro. I agree w/ the orozco components of her documentation. Kenneth Metcalf MD Subjective Patient seen lying in bed, present at bedside. States she feels back to baseline mentally. Had burning with urination yesterday, but nothing today. has been using purewhick. States she ambulates with walker at baseline and usually able to make it to the bathroom. Does not wear breifs, but wears poise pads, states she is changing them everytime she goes to the bathroom. Discussion of frequent PACs- patient asymptomatic, denies hx of afib. States she has been told that she has an irregular heart rate before but was told "nothing that will kill me" Tele - SR with PACs, more frequent runs this morning, one one short run noticed last night. Rate 70-80s. Review of Systems Review of Systems: All systems reviewed & are unremarkable except as noted in Subjective Physical Exam Physical Exam: General: NAD, lying in bed, VS as above Resp: normal respiratory effort, lungs clear to auscultation CV: Regular rate at this time, no murmur, Abd: normal bowel sounds, non tender, no hepatosplenomegaly. No skin rash under panus or groin. : Purewhick in place Extremities: Moves all extremities, no edema Neuro: A&O x3, Skin: intact, no lesions noted Results & Data Results & Data Vital Signs (Past 12 Hours) Vital Signs Temp Pulse Pulse Resp BP BP Pulse Ox 08/15/23 08:14 70 08/15/23 07:53 36.4 C L 66 16 143/69 H 95 08/15/23 07:16 08/15/23 00:02 36.6 C 68 20 101/73 93 O2 Del Method 08/15/23 08:14 08/15/23 07:53 Room Air 08/15/23 07:16 Room Air 08/15/23 00:02 Room Air PG Care Time/CCT Total # of Minutes Spent Total Time Spent with Patient: Total time spent is greater than 50% in coordination of care (as documented) at patient's floor/unit and/or counseling patient: Coding Level of Care Code 71423 SUB INP/OBS CARE 3/50MIN Diagnoses Acute metabolic encephalopathy G93.41 Acute UTI (urinary tract infection) N39.0 Hypokalemia E87.6 Essential hypertension I10 Hypertension type: unspecified Uncontrolled type 2 diabetes mellitus with hyperglycemia E11.65 Glycemic state: with hyperglycemia (4) HTN (hypertension) Hypertension type: unspecified Qualified Code(s): I10 - Essential (primary) hypertension (5) Uncontrolled type 2 diabetes mellitus Glycemic state: with hyperglycemia Qualified Code(s): E11.65 - Type 2 diabetes mellitus with hyperglycemia
[2023-08-15] MEDS: ASPIRIN 81 MG ECTAB PO SCH (20:54)
[2023-08-15] MEDS: ENOXAPARIN INJ 40 MG/0.4 ML SYR SQ SCH (20:55)
[2023-08-15] MEDS: PREMARIN VAG CRM 14 APPLN/30 GM TUBE PV SCH (20:55)
[2023-08-15] MEDS: cefTRIAXone SODIUM 2,000 MG in DEXTROSE 5 % MINI-B 50 ML IV SCH (21:10)
[2023-08-16] MEDS: PREGABALIN 150 MG CAP PO SCH ×2 (09:28→20:04)
[2023-08-16] MEDS: ACETAMINOPHEN 325 MG TAB PO PRN (09:28)
[2023-08-16] MEDS: INSULIN ASPART PER UNIT CHARGE SC SCH ×4 (09:29→20:17)
[2023-08-16] MEDS: LANTUS PER UNIT CHARGE SQ SCH ×2 (09:29→20:17)
[2023-08-16] MEDS: oxyBUTYnin chloride 5 MG TAB PO SCH ×3 (09:32→20:02)
[2023-08-16] MEDS: TAMSULOSIN HCL 0.4 MG CAP PO SCH (09:32)
[2023-08-16] MEDS: carvediloL 6.25 MG TAB PO SCH ×2 (09:32→19:59)
[2023-08-16] MEDS: DULoxetine HCL 60 MG CAP PO SCH ×2 (09:32→20:00)
[2023-08-16] MEDS: CALCITONIN SALMON NA 200 IU/AC 3.7 ML BTL SCH (09:33)
[2023-08-16] MEDS: PANTOprazole 40 MG TAB PO SCH (09:33)
[2023-08-16 12:28] LABS: Basophils # (auto) 0.03 K/uL (0.00-0.20); Basophils % (auto) 0.3 %; Eosinophils # (auto) 0.11 K/uL (0.00-0.50); Eosinophils % (auto) 1.3 %; Hematocrit (blood only) 44.2 % (37.0-47.0); Hemoglobin 14.7 g/dl (12.0-16.0); Immature Granulocytes # (auto) 0.03 K/uL (0.01-0.20); Immature Granulocytes % (auto) 0.3 %; Lymphocytes # (auto) 2.58 K/uL (1.20-3.40); Lymphocytes % (auto) 29.4 %; Mean Corpuscular Hemoglobin 30.1 pg (25.0-34.0); Mean Corpuscular Hgb Conc 33.3 g/dL (32.0-36.0); Mean Corpuscular Volume 90.6 fL (80.0-100.0); Mean Platelet Volume 11.6 fL (9.4-12.4); Monocytes # (auto) 0.54 K/uL (0.11-0.59); Monocytes % (auto) 6.1 %; Neutrophils % (auto) 62.6 %; Platelet Count 210 K/uL (130-400); RDW Coefficient of Variation 12.9 % (11.5-14.5); RDW Standard Deviation 42.4 fL (36.4-46.3); Red Blood Count 4.88 M/uL (4.20-5.40); White Blood Count 8.79 K/ul (4.8-10.8)
--- NOTE | 2023-08-16 12:30 | Hospitalist Progress Note ---
Date of Service August 16, 2023 Assessment & Plan (1) Acute metabolic encephalopathy: Plan: Likely secondary to UTI Resolved CT head negative (2) Acute UTI (urinary tract infection): Plan: Urine culture growing E. coli again, pansensitive -Continue Ceftriaxone (day 1: 08/12). May be switched to a p.o. 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 No PCP note since. Patient reports she started taking this at night since she was d/c from rehab and noticed she is having nocturia with incontinence episodes. Has been taking qAM here. -Will add topical estrogen cream for UTI prevention, nightly x14 days then twice a week. - Discussed personal hygiene for UTI prevention Labs checked with increase confusion - CBC WNL. Mag 1.9 - Na low 134, will recheck tomorrow AM (3) Hypokalemia: Plan: Repleted PO and IV -Mag level is WNL -Resolved, last K 4.1 (4) HTN (hypertension): Plan: -Now stable -Continue home Carvedilol -also for PACs (5) Uncontrolled type 2 diabetes mellitus: Plan: -Noted to be hyperglycemic on arrival at [facility] -Home rigement: 50 units Degludec HS and Weekly Semaglutide -Monitor BSG ACHS, goal is 110-140 -10 units lantus BID and CF of 40 ACHS, add Carb ratio 1:20 -Adjust regimen as needed -Patient has not been checking sugars at home because glucometer batteries , needs a new one set to the pharmacy (ordered). Plan Dispo: medically Stable, continued inpatient stay while waiting rehab placement Admission and Anticipated Discharge Date Admission Date: August 12, 2023 Supervising Physician Co-Signing Physician Notes Attending Attestation - Chart reviewed, care plan d/w CHELSY Bro. I agree w/ the orozco components of her documentation. Kenneth Metcalf MD Subjective Patient seen sitting up in the chair, reports feeling tired today. Does not remember being restless or needing frequent redirection last night. When reminded, she contributes this to her UTI. No acute complaints. States she worked with OT this morning and it went well. Denies chest pain or shortness of breath. States at baseline she is mostly continent, with increased incontinence at night. States at night, as she soon as she stands up she pees. Has not seen gynecology or urology. Tele - sinus jaya 50s with PACs Review of Systems Review of Systems: All systems reviewed & are unremarkable except as noted in Subjective Physical Exam Physical Exam: General: NAD, sitting up in the chair, combing her hair VS as above Resp: normal respiratory effort, lungs clear to auscultation CV: Regular rate at this time, no murmur, Abd: normal bowel sounds, mild tenderness suprapubic, no hepatosplenomegaly. Antifungal cream present under panus Extremities: Moves all extremities, no edema Neuro: A&O x3, Skin: intact, no lesions noted Results & Data Results & Data Vital Signs (Past 12 Hours) Vital Signs Temp Pulse Pulse Resp BP Pulse Ox O2 Del Method 08/16/23 11:11 36.4 C L 64 18 170/79 H 95 Room Air 08/16/23 07:43 36.4 C L 56 L 18 193/74 H 94 Room Air 08/16/23 07:30 59 L 08/16/23 04:00 36.6 C 63 18 152/63 H 96 Room Air Laboratory Results CBC, chemistry and magnesium reviewed PG Care Time/CCT Total # of Minutes Spent Total Time Spent with Patient: Total time spent is greater than 50% in coordination of care (as documented) at patient's floor/unit and/or counseling patient: Coding Level of Care Code 38865 SUB INP/OBS CARE 2/35MIN Diagnoses Acute metabolic encephalopathy G93.41 Acute UTI (urinary tract infection) N39.0 Hypokalemia E87.6 Essential hypertension I10 Hypertension type: unspecified Uncontrolled type 2 diabetes mellitus with hyperglycemia E11.65 Glycemic state: with hyperglycemia (4) HTN (hypertension) Hypertension type: unspecified Qualified Code(s): I10 - Essential (primary) hypertension (5) Uncontrolled type 2 diabetes mellitus Glycemic state: with hyperglycemia Qualified Code(s): E11.65 - Type 2 diabetes mellitus with hyperglycemia
[2023-08-16 12:36] LABS: BUN Creatinine Ratio 15.6 (10-20); Creatinine Clr Calc Pharmacy 95.5 ml/min; Est GFR (African American) 106.3 ml/min; Est GFR (Non-African American) 91.7 ml/min; Magnesium 1.9 mg/dl (1.7-2.4); Potassium 4.1 mmol/L (3.5-5.1)
[2023-08-16] MEDS ORDERED: MELATONIN 3 MG TAB PO PRN (12:39)
[2023-08-16] MEDS: cefTRIAXone SODIUM 2,000 MG in DEXTROSE 5 % MINI-B 50 ML IV SCH (19:55)
[2023-08-16] MEDS: ASPIRIN 81 MG ECTAB PO SCH (19:59)
[2023-08-16] MEDS: ENOXAPARIN INJ 40 MG/0.4 ML SYR SQ SCH (20:00)
[2023-08-16] MEDS: PREMARIN VAG CRM 14 APPLN/30 GM TUBE PV SCH (20:06)
[2023-08-16] MEDS ORDERED: NYSTATIN SUSP 500,000 U/5 ML UDC PO ONE (22:27)
[2023-08-17] MEDS: CALCITONIN SALMON NA 200 IU/AC 3.7 ML BTL SCH (08:06)
[2023-08-17] MEDS: PANTOprazole 40 MG TAB PO SCH (08:07)
[2023-08-17] MEDS: NYSTATIN SUSP 500,000 U/5 ML UDC PO SCH ×4 (08:07→20:25)
[2023-08-17] MEDS: MICONAZOLE NITRATE POWDER 85 GM EXT PRN (08:07)
[2023-08-17] MEDS: DULoxetine HCL 60 MG CAP PO SCH ×2 (08:07→20:19)
[2023-08-17] MEDS: TAMSULOSIN HCL 0.4 MG CAP PO SCH (08:08)
[2023-08-17] MEDS: oxyBUTYnin chloride 5 MG TAB PO SCH ×3 (08:08→20:18)
[2023-08-17] MEDS: PREGABALIN 150 MG CAP PO SCH ×2 (08:12→20:28)
[2023-08-17] MEDS: carvediloL 6.25 MG TAB PO SCH ×2 (08:12→20:19)
[2023-08-17 08:43] LABS: BUN Creatinine Ratio 21.1 (10-20); Calcium 9.1 mg/dl (8.6-10.3); Creatinine Clr Calc Pharmacy 108.8 ml/min; Est GFR (African American) 110.4 ml/min; Est GFR (Non-African American) 95.3 ml/min; Potassium 3.8 mmol/L (3.5-5.1)
[2023-08-17] MEDS: LANTUS PER UNIT CHARGE SQ SCH ×2 (08:53→20:40)
[2023-08-17] MEDS: INSULIN ASPART PER UNIT CHARGE SC SCH ×4 (08:55→20:40)
[2023-08-17] MEDS: ACETAMINOPHEN 325 MG TAB PO PRN (10:53)
--- NOTE | 2023-08-17 13:15 | Hospitalist Progress Note ---
Date of Service August 17, 2023 Assessment & Plan (1) Acute metabolic encephalopathy: Plan: Likely secondary to UTI Resolved CT head negative (2) Acute UTI (urinary tract infection): Plan: Urine culture growing E. coli again, pansensitive -Continue Ceftriaxone (day 1: 08/12). May be switched to a p.o. 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 No PCP note since. Patient reports she started taking this at night since she was d/c from rehab and noticed she is having nocturia with incontinence episodes. Has been taking qAM here. -Will add topical estrogen cream for UTI prevention, nightly x14 days then twice a week. - Discussed personal hygiene for UTI prevention Labs checked with increase confusion - CBC WNL. Mag 1.9 - Na low 134, will recheck --> 08/17: 137 (3) Hypokalemia: Plan: Repleted PO and IV -Mag level is WNL -Resolved, last K 3.8 (4) HTN (hypertension): Plan: -Now stable -Continue home Carvedilol -also for PACs (5) Uncontrolled type 2 diabetes mellitus: Plan: -Noted to be hyperglycemic on arrival at [facility] -Home rigement: 50 units Degludec HS and Weekly Semaglutide -Monitor BSG ACHS, goal is 110-140 -increase to 12 units lantus BID and CF of 40 ACHS, add Carb ratio 1:20 -Adjust regimen as needed -Patient has not been checking sugars at home because glucometer batteries , needs a new one set to the pharmacy (ordered). Plan Dispo: medically Stable, continued inpatient stay while waiting rehab placement (hopefully [facility] tomorrow, 08/18) Admission and Anticipated Discharge Date Admission Date: August 12, 2023 Supervising Physician Co-Signing Physician Notes Attending Attestation - Chart reviewed, care plan d/w CHELSY Bro. I agree w/ the orozco components of her documentation. Kenneth Metcalf MD Subjective Patient seen sitting up in the chair. No acute complaints, has been moving her bowels. Denies urinary symptoms. Good appetite. Reports to be that she is starting to have more control of her bladder, but RN states still mostly incontient and patient prefers purewick vs ambulating to the bathroom. Tele - sinus jaya, with PACs (decrease in number compared to prior days) Review of Systems Review of Systems: All systems reviewed & are unremarkable except as noted in Subjective Physical Exam Physical Exam: General: NAD, sitting up in the chair, VS as above Resp: normal respiratory effort, lungs clear to auscultation CV: Regular rate at this time, no murmur, Abd: normal bowel sounds, mild tenderness suprapubic - improved, no hepatosplenomegaly. no rash under panus Extremities: Moves all extremities, no edema Neuro: A&O x3, Skin: intact, no lesions noted Results & Data Results & Data Vital Signs (Past 12 Hours) Vital Signs Temp Pulse Pulse Resp BP BP Pulse Ox 08/17/23 07:32 36.6 C 54 L 18 135/75 96 08/17/23 07:04 08/17/23 06:26 56 L 08/17/23 03:03 36.8 C 59 L 18 152/64 H 94 O2 Del Method 08/17/23 07:32 Room Air 08/17/23 07:04 Room Air 08/17/23 06:26 08/17/23 03:03 Room Air PG Care Time/CCT Total # of Minutes Spent Total Time Spent with Patient: Total time spent is greater than 50% in coordination of care (as documented) at patient's floor/unit and/or counseling patient: Coding Level of Care Code 70474 SUB INP/OBS CARE 2/35MIN Diagnoses Acute metabolic encephalopathy G93.41 Acute UTI (urinary tract infection) N39.0 Hypokalemia E87.6 Essential hypertension I10 Hypertension type: unspecified Uncontrolled type 2 diabetes mellitus with hyperglycemia E11.65 Glycemic state: with hyperglycemia (4) HTN (hypertension) Hypertension type: unspecified Qualified Code(s): I10 - Essential (primary) hypertension (5) Uncontrolled type 2 diabetes mellitus Glycemic state: with hyperglycemia Qualified Code(s): E11.65 - Type 2 diabetes mellitus with hyperglycemia
[2023-08-17] MEDS: cephALEXin 500 MG CAP PO SCH ×2 (17:46→20:17)
[2023-08-17] MEDS: ENOXAPARIN INJ 40 MG/0.4 ML SYR SQ SCH (20:22)
[2023-08-17] MEDS: ASPIRIN 81 MG ECTAB PO SCH (20:22)
[2023-08-17] MEDS: PREMARIN VAG CRM 14 APPLN/30 GM TUBE PV SCH (20:23)
[2023-08-18] MEDS: INSULIN ASPART PER UNIT CHARGE SC SCH ×4 (09:32→21:26)
[2023-08-18] MEDS: PREGABALIN 150 MG CAP PO SCH ×2 (09:33→21:37)
[2023-08-18] MEDS: LANTUS PER UNIT CHARGE SQ SCH ×2 (09:33→21:26)
[2023-08-18] MEDS: TAMSULOSIN HCL 0.4 MG CAP PO SCH ×2 (09:34→09:41)
[2023-08-18] MEDS: NYSTATIN SUSP 500,000 U/5 ML UDC PO SCH ×4 (09:34→21:02)
[2023-08-18] MEDS: PANTOprazole 40 MG TAB PO SCH (09:35)
[2023-08-18] MEDS: oxyBUTYnin chloride 5 MG TAB PO SCH ×3 (09:35→21:04)
[2023-08-18] MEDS: DULoxetine HCL 60 MG CAP PO SCH ×2 (09:35→21:02)
[2023-08-18] MEDS: cephALEXin 500 MG CAP PO SCH ×4 (09:35→21:02)
[2023-08-18] MEDS: carvediloL 6.25 MG TAB PO SCH ×2 (09:35→21:03)
[2023-08-18] MEDS: CALCITONIN SALMON NA 200 IU/AC 3.7 ML BTL SCH (09:36)
[2023-08-18] MEDS: MICONAZOLE NITRATE POWDER 85 GM EXT PRN (12:31)
--- NOTE | 2023-08-18 13:44 | Hospitalist Progress Note ---
Date of Service August 18, 2023 Assessment & Plan (1) Acute metabolic encephalopathy: Plan: Likely secondary to UTI Resolved CT head negative (2) Acute UTI (urinary tract infection): Plan: Urine culture growing E. coli again, pansensitive -Continue Ceftriaxone (day 1: 08/12). switched to Keflex 08/17, anticipation of discharge. Will finish course of antibiotics a.m. of 08/19 and will not need antibiotics at discharge. 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 No PCP note since. Patient reports she started taking this at night since she was d/c from rehab and noticed she is having nocturia with incontinence episodes. Has been taking qAM here. -Will add topical estrogen cream for UTI prevention, nightly x14 days then twice a week. - Discussed personal hygiene for UTI prevention (3) Hypokalemia: Plan: Repleted PO and IV -Mag level is WNL -Resolved, last K 3.8 (4) HTN (hypertension): Plan: - blood pressures have been borderline, will continue to monitor -Continue home Carvedilol -also for PACs (5) Uncontrolled type 2 diabetes mellitus: Plan: -Noted to be hyperglycemic on arrival at [facility] -Home rigement: 50 units Degludec HS and Weekly Semaglutide -Monitor BSG ACHS, goal is 110-140 -increase to 12 units lantus BID and CF of 30 ACHS, add Carb ratio 1:20 -Adjust regimen as needed -Patient has not been checking sugars at home because glucometer batteries , needs a new one set to the pharmacy (ordered). Plan DVT proh: Lovenox Dispo: medically Stable, continued inpatient stay while waiting rehab placement Will downgrade to medical Admission and Anticipated Discharge Date Admission Date: August 12, 2023 Supervising Physician Co-Signing Physician Notes Attending Attestation - Chart reviewed, care plan d/w CHELSY Bro. I agree w/ the orozco components of her documentation. Kenneth Metcalf MD Subjective Patient Seen sitting up in bed. present at bedside. Reports she is waiting to go to [facility]. Has still been using the pure wick, I encouraged her to get up to the bathroom or at least use bedside commode. Feels like her thrush symptoms have resolved. Does report some left lower quadrant abdominal pain, but has been 2 days since she has had a bowel movement. Requesting MiraLAX. Denies any urinary symptoms. Denies any chest pain or shortness of breath. Tele - sinus jaya 50-60s, with PACs and PVCs Review of Systems Review of Systems: All systems reviewed & are unremarkable except as noted in Subjective Physical Exam Physical Exam: General: NAD, sitting up in bed, VS as above HEENT: no evidence of thrush, mucosal membranes dry Resp: normal respiratory effort, lungs clear to auscultation CV: Regular rate at this time, no murmur, Abd: normal bowel sounds, mild Left lower quadrant tenderness no hepatosplenomegaly. Extremities: Moves all extremities, no edema Neuro: A&O x3, Skin: intact, no lesions noted Results & Data Results & Data Vital Signs (Past 12 Hours) Vital Signs Temp Pulse Pulse Resp BP BP Pulse Ox 08/18/23 11:35 36.5 C 58 L 18 174/73 H 90 08/18/23 08:00 36.6 C 55 L 18 175/66 H 96 08/18/23 07:15 51 L 08/18/23 04:13 36.5 C 56 L 20 170/79 H 93 O2 Del Method 08/18/23 11:35 Room Air 08/18/23 08:00 Room Air 08/18/23 07:15 08/18/23 04:13 Room Air PG Care Time/CCT Total # of Minutes Spent Total Time Spent with Patient: Total time spent is greater than 50% in coordination of care (as documented) at patient's floor/unit and/or counseling patient: Coding Level of Care Code 32327 SUB INP/OBS CARE 2/35MIN Diagnoses Acute metabolic encephalopathy G93.41 Acute UTI (urinary tract infection) N39.0 Hypokalemia E87.6 Essential hypertension I10 Hypertension type: unspecified Uncontrolled type 2 diabetes mellitus with hyperglycemia E11.65 Glycemic state: with hyperglycemia (4) HTN (hypertension) Hypertension type: unspecified Qualified Code(s): I10 - Essential (primary) hypertension (5) Uncontrolled type 2 diabetes mellitus Glycemic state: with hyperglycemia Qualified Code(s): E11.65 - Type 2 diabetes mellitus with hyperglycemia
[2023-08-18] MEDS: POLYETHYLENE (MIRALAX) 17 GM PACK PO PRN (13:58)
[2023-08-18] MEDS: ASPIRIN 81 MG ECTAB PO SCH (21:03)
[2023-08-18] MEDS: ENOXAPARIN INJ 40 MG/0.4 ML SYR SQ SCH (21:04)
[2023-08-18] MEDS: PREMARIN VAG CRM 14 APPLN/30 GM TUBE PV SCH (21:05)
[2023-08-19] MEDS: cephALEXin 500 MG CAP PO SCH (08:45)
[2023-08-19] MEDS: carvediloL 6.25 MG TAB PO SCH ×2 (08:45→20:55)
[2023-08-19] MEDS: TAMSULOSIN HCL 0.4 MG CAP PO SCH (08:45)
[2023-08-19] MEDS: oxyBUTYnin chloride 5 MG TAB PO SCH ×3 (08:45→20:55)
[2023-08-19] MEDS: INSULIN ASPART PER UNIT CHARGE SC SCH ×4 (08:46→20:56)
[2023-08-19] MEDS: DULoxetine HCL 60 MG CAP PO SCH ×2 (08:46→20:55)
[2023-08-19] MEDS: NYSTATIN SUSP 500,000 U/5 ML UDC PO SCH ×4 (08:46→20:55)
[2023-08-19] MEDS: PANTOprazole 40 MG TAB PO SCH (08:46)
[2023-08-19] MEDS: CALCITONIN SALMON NA 200 IU/AC 3.7 ML BTL SCH (08:47)
[2023-08-19] MEDS: LANTUS PER UNIT CHARGE SQ SCH ×2 (08:47→20:56)
[2023-08-19] MEDS: PREGABALIN 150 MG CAP PO SCH ×2 (08:49→20:55)
[2023-08-19] MEDS: amLODIPine BESYLATE 5 MG TAB PO SCH (10:25)
--- NOTE | 2023-08-19 11:19 | Hospitalist Progress Note ---
Date of Service August 19, 2023 Assessment & Plan (1) Acute metabolic encephalopathy: Plan: Likely secondary to UTI CT head negative Resolved. (2) Acute UTI (urinary tract infection): Plan: Urine culture growing E. coli again, pansensitive -Continue Ceftriaxone (day 1: 08/12). 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 No PCP note since. Patient reports she started taking this at night since she was d/c from rehab and noticed she is having nocturia with incontinence episodes. Has been taking qAM here. -Will add topical estrogen cream for UTI prevention, nightly x14 days then twice a week. - Discussed personal hygiene for UTI prevention (3) Hypokalemia: Plan: Repleted PO and IV -Mag level is WNL -Resolved, last K 3.8 (4) HTN (hypertension): Plan: -Continue home Carvedilol -also for PACs -Added amlodpine 5mg daily for continued elevated pressures (5) Uncontrolled type 2 diabetes mellitus: Plan: A1c 07/2023: 7.6 -Home rigement: 50 units Degludec HS and Weekly Semaglutide -Monitor BSG ACHS, goal is 110-140 -increase to 12 units lantus BID and CF of 25 ACHS, add Carb ratio 1:20 -Adjust regimen as needed -Patient has not been checking sugars at home because glucometer batteries , needs a new one set to the pharmacy (ordered). Plan DVT proh: Lovenox Dispo: medically Stable, continued inpatient stay while waiting rehab placement Admission and Anticipated Discharge Date Admission Date: August 12, 2023 Supervising Physician Co-Signing Physician Notes Attending Attestation - Chart reviewed, care plan d/w CHELSY Bro. I agree w/ the orozco components of her documentation. Today is final day of antibiotics for UTI. Dispo - SNF for rehab. this weekend? Kenneth Metcalf MD Subjective Patient seen sitting up in the chair. reports slept well last night. Requesting to get washed up and another dose of MiraLAX. Denies any urinary symptoms, burning with urination. Has been using the commode. awaiting placement Review of Systems Review of Systems: All systems reviewed & are unremarkable except as noted in Subjective Physical Exam Physical Exam: General: NAD, sitting up in bed, VS as above HEENT: no evidence of thrush, mucosal membranes dry Resp: normal respiratory effort, lungs clear to auscultation CV: Regular rate at this time, no murmur, Abd: normal bowel sounds, nontender no hepatosplenomegaly. Extremities: Moves all extremities, no edema Neuro: A&O x3, Skin: intact, no lesions noted Results & Data Results & Data Vital Signs (Past 12 Hours) Vital Signs Temp Pulse Pulse Resp BP BP Pulse Ox 08/19/23 07:34 51 L 08/19/23 07:29 36.4 C L 52 L 18 176/76 H 94 08/19/23 03:54 55 L 08/19/23 01:29 36.5 C 55 L 20 164/79 H 95 O2 Del Method 08/19/23 07:34 08/19/23 07:29 Room Air 08/19/23 03:54 08/19/23 01:29 Room Air PG Care Time/CCT Total # of Minutes Spent Total Time Spent with Patient: Total time spent is greater than 50% in coordination of care (as documented) at patient's floor/unit and/or counseling patient: Coding Level of Care Code 50343 SUB INP/OBS CARE 2/35MIN Diagnoses Acute metabolic encephalopathy G93.41 Acute UTI (urinary tract infection) N39.0 Hypokalemia E87.6 Essential hypertension I10 Hypertension type: unspecified Uncontrolled type 2 diabetes mellitus with hyperglycemia E11.65 Glycemic state: with hyperglycemia (4) HTN (hypertension) Hypertension type: unspecified Qualified Code(s): I10 - Essential (primary) hypertension (5) Uncontrolled type 2 diabetes mellitus Glycemic state: with hyperglycemia Qualified Code(s): E11.65 - Type 2 diabetes mellitus with hyperglycemia
[2023-08-19] MEDS: PREMARIN VAG CRM 14 APPLN/30 GM TUBE PV SCH (20:55)
[2023-08-19] MEDS: ASPIRIN 81 MG ECTAB PO SCH (20:55)
[2023-08-19] MEDS: ENOXAPARIN INJ 40 MG/0.4 ML SYR SQ SCH (20:55)
[2023-08-20] MEDS: POLYETHYLENE (MIRALAX) 17 GM PACK PO PRN (06:07)
[2023-08-20] MEDS: DULoxetine HCL 60 MG CAP PO SCH (08:04)
[2023-08-20] MEDS: carvediloL 6.25 MG TAB PO SCH (08:05)
[2023-08-20] MEDS: TAMSULOSIN HCL 0.4 MG CAP PO SCH (08:05)
[2023-08-20] MEDS: oxyBUTYnin chloride 5 MG TAB PO SCH (08:05)
[2023-08-20] MEDS: PANTOprazole 40 MG TAB PO SCH (08:05)
[2023-08-20] MEDS: NYSTATIN SUSP 500,000 U/5 ML UDC PO SCH (08:05)
[2023-08-20] MEDS: amLODIPine BESYLATE 5 MG TAB PO SCH (08:05)
[2023-08-20] MEDS: CALCITONIN SALMON NA 200 IU/AC 3.7 ML BTL SCH (08:06)
[2023-08-20] MEDS: INSULIN ASPART PER UNIT CHARGE SC SCH ×2 (08:12→12:02)
[2023-08-20] MEDS: PREGABALIN 150 MG CAP PO SCH (08:12)
[2023-08-20] MEDS: LANTUS PER UNIT CHARGE SQ SCH (08:12)
--- NOTE | 2023-08-20 09:10 | Discharge Summary ---
Discharge Summary Date of Service August 20, 2023 Notes For Next Care Provider - Check UA in 5-7 days - needs endocrinology follow up, I sent in a new glucometer - Recommend getting established with outpatient OBGYN Medication Changes From Visit - Added Premarin vaginal cream, nightly until 08/28 then twice weekly after that - added amlodipine 5mg qam - Restarted flomax qam Admission HPI Per Admitting Provider Gia is a 68 year old female with a PMH significant for recurrent UTI's causing metabolic encephalopathy, hypertension, C. difficile diarrhea, CAD, diabetic neuropathy, diabetes mellitus, diabetic nephropathy, hyperlipidemia, diabetic peripheral neuropathy, RLS, and ambulatory dysfunction who presented to the [facility] ED via EMS on 08/12/23 after her son found her to be confused, similar to her last admission to [facility] on 07/06/23. She was noted to be hypertensive with systolics in the 180-190's but otherwise stable. Labs were significant for a CBC WNL, potassium of 3.3, glucose of 235, UA consistent with UTI, and full respiratory biofire negative. CT of the head/brain wo con was read as "No significant change compared to the prior study. No acute intracranial abnormality. ". Prior to admission the patient was given a dose of ceftriaxone. At the time of the exam the patient was lying in bed in no acute distress. History was limited as she is currently pleasantly confused. She is alert to self and month at the time of my exam but was unable to tell me why EMS was called earlier today. When asked, she denies pain at rest, chest pain, SOB, abd pain, nausea, vomiting, diarrhea, LE swelling, and recent falls. She did say that she is experiencing dysuria. When asked, she states that she did not take her am medications. I was able to call and speak with her Son, Benedicto Gresham ([phone]), to obtain further history. He states that his mother seemed herself when he spoke with her on the phone last night. This am around 0800 his father called saying that the patient was acting confused and was having increased generalized weakness. When he arrived to their home he states that she was acting the same as when she required admission from 07/06-07/12 which is why he called EMS. He also does not think that the patient took her medications this am. He denies the patient having any falls or trauma overnight or this am prior to EMS arrival. Her confirms that she is a full code. Please refer to Dr. Martinez's attestation for any changes to the treatment plan Principal Dx & Hospital Course #1 = Principal Diagnosis (1) Acute metabolic encephalopathy: Likely secondary to UTI CT head negative Resolved. (2) Acute UTI (urinary tract infection): Urine culture growing E. coli again, pansensitive -Continue Ceftriaxone (day 1: 08/12). switched to Keflex 08/17, Finished course of antibiotics 08/19 - Recommend repeat UA in 1 week after antibiotic - possible prolapse, recommend outpatient [employer] follow up -Will continue home flomax qAM - Continue topical estrogen cream for UTI prevention, nightly x14 days (last day 08/28) then twice a week. - Discussed personal hygiene for UTI prevention (3) Hypokalemia: Repleted PO and IV -Mag level is WNL -Resolved, last K 3.8 (4) HTN (hypertension): -Continue home Carvedilol -also for PACs -Cotninue amlodpine 5mg daily (5) Uncontrolled type 2 diabetes mellitus: A1c 07/2023: 7.6 -Home rigement: 50 units Degludec HS and Weekly Semaglutide - Will discharge on prior home regiement -Patient has not been checking sugars at home because glucometer batteries , needs a new one set to the pharmacy (ordered). Plan Dispo: discharge to [facility] Discharge Exam General: NAD, sitting up in bed, VS as above HEENT: no evidence of thrush, mucosal membranes dry Resp: normal respiratory effort, lungs clear to auscultation CV: Regular rate, no murmur, Abd: normal bowel sounds, nontender no hepatosplenomegaly. Extremities: Moves all extremities, no edema Neuro: A&O x3, Updated Medication List Medication Instructions Recorded Confirmed Type omega 0-ext-rea-fish oil 1,000 mg 1,000 mg PO HS 06/20/18 08/12/23 History (120 mg-180 mg) capsule (Fish Oil) blood sugar diagnostic (OneTouch #400 ea 09/19/20 12/02/22 Rx Ultra Blue Test Strip) lancets (OneTouch UltraSoft #400 ea 09/19/20 12/02/22 Rx Lancets) cholecalciferol (vitamin D3) 50 2,000 unit PO QAM 05/15/21 08/12/23 History mcg (2,000 unit) capsule Wheeled Walker #1 ea 07/09/21 08/13/22 Rx aspirin 81 mg tablet,delayed 81 mg PO HS 04/05/22 08/12/23 History release Scooter #1 ea 06/02/22 10/21/22 Rx calcitonin (salmon) 200 1 spray NA DAILY #3.7 mL 07/07/22 08/12/23 Rx unit/actuation nasal spray acetaminophen 325 mg tablet 650 mg PO QID PRN Pain 09/15/22 08/12/23 History bwbcrand-hkm-zehpk ac 400 1 tab PO QAM 09/15/22 08/12/23 History mcg-calcium carb 500 mg-vit K1 20 mcg tablet (Women's 50 Plus Daily Formula) loratadine 10 mg tablet (Claritin) 10 mg PO DAILY #90 tabs 12/14/22 08/12/23 Rx BD Ultra-Fine Araceli Pen Needle 32 #200 ea 04/06/23 Rx gauge x 5/32" (pen needle, diabetic) semaglutide 0.25 mg or 0.5 mg (2 0.5 mg (0.736 mL) subcut Q7D 30 04/15/23 08/12/23 Rx mg/3 mL) subcutaneous pen injector days #3 mL (Ozempic) oxybutynin chloride 5 mg tablet See Rx Instructions .Route 05/09/23 08/12/23 Rx .COMPLEX #270 tabs carvedilol 6.25 mg tablet 6.25 mg PO BID #180 tabs 06/08/23 08/12/23 Rx duloxetine 60 mg capsule,delayed 60 mg PO BID #60 caps 06/12/23 08/12/23 Rx release pregabalin 150 mg capsule 150 mg PO BID #60 caps 06/12/23 08/12/23 Rx insulin degludec 100 unit/mL (3 50 unit (0.5 mL) subcut HS 90 days 06/17/23 08/12/23 Rx mL) subcutaneous pen (Tresiba #45 mL FlexTouch U-100 insulin) OneTouch Ultra2 Meter #1 ea 07/07/23 08/12/23 Rx (blood-glucose meter) omeprazole 40 mg capsule,delayed 40 mg PO QAM 08/12/23 08/12/23 History release tamsulosin 0.4 mg capsule 0.4 mg PO QAM 08/12/23 08/12/23 History blood-glucose meter (OneTouch #1 ea 08/15/23 Rx Ultra2 Meter) amlodipine 5 mg tablet (Norvasc) 5 mg PO QAM 30 days #30 tabs 08/20/23 Rx conjugated estrogens 0.625 mg/gram 1 applic vaginal QPM 8 days #10 08/20/23 Rx vaginal cream (Premarin) grams conjugated estrogens 0.625 mg/gram 1 applic vaginal WeSa@2100 30 days 08/20/23 Rx vaginal cream (Premarin) #30 grams miconazole nitrate 2 % topical 1 applic EXT PRN PRN Skin 08/20/23 Rx powder (Desenex) Irritation 30 days #30 grams polyethylene glycol 3350 17 gram 17 g PO DAILY PRN Constipation 30 08/20/23 Rx oral powder packet (Miralax) days #30 ea Hospital Stay Data Consultations 08/12/23 18:32 ED Decision to Admit Stat Diagnostic Imagining Performed 08/12/23 17:28 CT head/brain wo con Stat Pending Results Patient Have Any Pending Studies at Discharge: No Discharge Instructions Given to Patient (Per Discharging Provider) Ms. Gresham You were hospitalized after having a UTI that caused you to have altered mental status. You were treated with a 7 day course of antibiotics. During your stay we made the following medication changes: - Added Premarin vaginal cream, use this nightly until 08/28, then transition to twice a week (pea sized amount around urethra) - Added amlodipine 5mg (for Better blood pressure control) - Restarted Flomax in the MORNING You will transition back to your home insulin regiment. It is very important that you are checking your blood sugar 4 times a day (fasting and with meals)... You needed a new glucometer and I sent that to [facility]. Continue the hygiene items we discussed - wiping back to front, not sitting around in soiled/wet pads/briefs. Case Management is working on arranging OBGYN follow up - if you do not hear from someone by the end of next week for an appointment, their office number is on this document. For Cosmeantolin Renaldo: - Please check UA in 5-7 days Total Time Total Time Spent Total Time Spent (In Minutes): Time spend day of discharge 35 minutes including direct patient care, medication reconciliation, documentation, review of labs and images, and coordination of care. Coding Level of Care Code 72173 INP/OBS DISCH >30 MIN Diagnoses Acute metabolic encephalopathy G93.41 Acute UTI (urinary tract infection) N39.0 Hypokalemia E87.6 Essential hypertension I10 Hypertension type: unspecified Uncontrolled type 2 diabetes mellitus with hyperglycemia E11.65 Glycemic state: with hyperglycemia
[2023-08-31] MEDS ORDERED: PREMARIN VAG CRM 14 APPLN/30 GM TUBE PV SCH (21:00)
== END 2023-08-20 12:52 | DRG 689 ==
LOC: ED 14:11 → 2N 19:25 → SUATTDRO 19:25 → 2N 20:50 → 3W 08-19 19:28

== ENCOUNTER 2024-09-27 19:28 | Inpatient (IN) ==
[2024-09-27 20:08] LABS: iSTAT Creatinine 0.7 mg/dl (0.6-1.3); iSTAT Ionized Calcium 1.01 mmol/l (1.12-1.32)
[2024-09-27] MEDS: methylPREDNISolone 125 MG/2 ML VIAL IV STA (20:15)
[2024-09-27] MEDS: diphenhydrAMINE 50 MG/ML VIAL IV STA (20:15)
[2024-09-27 20:16] LABS: Basophils # (auto) 0.03 K/uL (0.00-0.20); Basophils % (auto) 0.2 %; Eosinophils # (auto) 0.01 K/uL (0.00-0.50); Eosinophils % (auto) 0.1 %; Hematocrit (blood only) 47.5 % (37.0-47.0); Hemoglobin 15.9 g/dl (12.0-16.0); Immature Granulocytes # (auto) 0.09 K/uL (0.01-0.20); Immature Granulocytes % (auto) 0.6 %; Lymphocytes # (auto) 1.27 K/uL (1.20-3.40); Lymphocytes % (auto) 7.9 %; Mean Corpuscular Hemoglobin 30.2 pg (25.0-34.0); Mean Corpuscular Hgb Conc 33.5 g/dL (32.0-36.0); Mean Corpuscular Volume 90.3 fL (80.0-100.0); Mean Platelet Volume 11.8 fL (9.4-12.4); Monocytes # (auto) 0.68 K/uL (0.11-0.59); Monocytes % (auto) 4.2 %; Neutrophils # (auto) 14.09 K/uL (1.40-6.50); Platelet Count 175 K/uL (130-400); RDW Coefficient of Variation 13.6 % (11.5-14.5); RDW Standard Deviation 45.3 fL (36.4-46.3); Red Blood Count 5.26 M/uL (4.20-5.40); White Blood Count 16.17 K/ul (4.8-10.8)
[2024-09-27 20:32] LABS: Albumin Level 3.9 gm/dl (3.4-5.0); BUN Creatinine Ratio 14.1 (10-20); Bilirubin,Total 1.4 mg/dl (0.2-1.0); Calcium 9.7 mg/dl (8.6-10.3); Creatinine Clr Calc Pharmacy 71.8 ml/min; Globulin 3.8 gm/dl (2.5-4.0); Magnesium 1.9 mg/dl (1.7-2.4); Total Protein 7.7 gm/dl (6.0-8.3)
[2024-09-27 20:49] LABS: INR 1.1 (0.9-1.1); Partial Thromboplastin Time 27 Seconds (21-31); Prothrombin Time 11.8 Seconds (9.0-12.0)
[2024-09-27 20:53] LABS: Base Excess VBG 3.6 mEq/L; HCO3 VBG 30 mmol/L; Oxygen Saturation VBG < 60.0 %; PCO2 VBG 52 mmHg (38-50); PO2 VBG 20 mmHg; pH VBG 7.37 (7.36-7.41)
--- NOTE | 2024-09-27 21:09 | CT Scan Report ---
Exam(s): CT HEAD Without Contrast EXAM: CT Head Without Intravenous Contrast CLINICAL HISTORY: Reason for exam: Trauma. TECHNIQUE: Axial computed tomography images of the head/brain without intravenous contrast. CTDI is 36.43 mGy and DLP is 702.46 mGy-cm. Automated exposure control was utilized for the study. A dose lowering technique was utilized adhering to the principles of ALARA. COMPARISON: 08/12/23 FINDINGS: Brain: Generalized parenchymal volume loss. Minimal chronic small vessel ischemic disease. Small chronic basal ganglia lacunar infarcts. Leach-white matter differentiation maintained. No hemorrhage, mass effect, parenchymal edema, or midline shift. Ventricles: No hydrocephalus. Bones/joints: No acute fracture. Soft tissues: Unremarkable. Vasculature: Intracranial atherosclerosis. Sinuses: Unremarkable as visualized. Mastoid air cells: No significant mastoid effusion. IMPRESSION: No acute intracranial process. Electronically signed by: Arden Mas M.D. 09/27/24 21:08 PM
[2024-09-27 21:11] LABS: Appearance Urine Turbid (Clear); Bacteria Urine Automated 4+ (None Seen); Bilirubin Urine Negative (Negative); Blood Urine Trace (Negative); Color Urine Yellow; Epithelial Cell Urine Auto 0-2 /hpf (0-2); Glucose Urine UA 1+ (Negative); Ketones Urine 2+ (Negative); Leukocyte Esterase Urine 3+ (Negative); Nitrite Urine Positive (Negative); Protein Urine 1+ (Negative); RBC Urine Automated >20 /hpf (0-2); Specific Gravity Urine 1.032 (1.000-1.030); Urobilinogen Urine Negative (Negative); WBC Urine Automated >50 /hpf (0-5)
--- NOTE | 2024-09-27 21:12 | CT Scan Report ---
Exam(s): CT ABDOMEN + PELVIS With Contrast IV Amt: 93 cc opti 320 EXAM: CT Abdomen and Pelvis With Intravenous Contrast CLINICAL HISTORY: Reason for exam: Trauma. TECHNIQUE: Axial computed tomography images of the abdomen and pelvis with intravenous contrast. CTDI is 27.99 mGy and DLP is 1547.89 mGy-cm. Automated exposure control was utilized for the study. A dose lowering technique was utilized adhering to the principles of ALARA. CONTRAST: Patient received 93 cc opti 320 of IV contrast COMPARISON: 08/03/22 FINDINGS: Lung bases: Unremarkable. ABDOMEN: Liver: Unremarkable. No mass. Gallbladder and bile ducts: Cholecystectomy. No ductal dilation. Pancreas: Unremarkable. No mass. No ductal dilation. Spleen: Unremarkable. No splenomegaly. Adrenals: Unremarkable. No mass. Kidneys and ureters: Heterogeneous enhancement of the left kidney with perinephric stranding concerning for acute pyelonephritis. Simple bilateral renal cysts; no follow-up indicated. No hydronephrosis. Stomach and bowel: Sigmoid diverticulosis. No bowel obstruction. No mucosal thickening. PELVIS: Appendix: Normal appendix. Bladder: Hazy appearance of the urinary bladder wall, potentially cystitis. Reproductive: Hysterectomy. ABDOMEN and PELVIS: Intraperitoneal space: Unremarkable. No free air, significant free fluid, or fluid collection. Bones/joints: Thoracolumbar spondylosis. Left total hip arthroplasty. Mild-moderate osteoarthritis of the right hip. Chronic L1 inferior endplate compression fracture. No dislocation. Soft tissues: Previous ventral mesh hernia repair. Vasculature: Unremarkable. No abdominal aortic aneurysm. Lymph nodes: Unremarkable. No enlarged lymph nodes. IMPRESSION: 1. Heterogeneous enhancement of the left kidney with perinephric stranding concerning for acute pyelonephritis. Correlate with urinalysis. 2. Hazy appearance of the urinary bladder wall, potentially cystitis. Electronically signed by: Arden Mas M.D. 09/27/24 21:11 PM
--- NOTE | 2024-09-27 21:14 | CT Scan Report ---
Exam(s): CT C SPINE EXAM: CT Cervical Spine Without Intravenous Contrast CLINICAL HISTORY: Reason for exam: Trauma. TECHNIQUE: Axial computed tomography images of the cervical spine without intravenous contrast. CTDI is 26.96 mGy and DLP is 590.04 mGy-cm. Automated exposure control was utilized for the study. A dose lowering technique was utilized adhering to the principles of ALARA. COMPARISON: 09/26/22 FINDINGS: Vertebrae: Osteopenia. No acute fracture or subluxation. Discs/spinal canal/neural foramina: Disc and uncovertebral joint degeneration in the mid and lower cervical spine. Bilateral facet joint degeneration. Bulky ossification of the posterior longitudinal ligament throughout the cervical spine producing long segment of spinal canal stenosis, moderate-severe in the upper cervical spine, which is stable from prior. Foraminal narrowing at the C5-C6 level. Soft tissues: Unremarkable. IMPRESSION: No acute findings in the cervical spine. 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 Electronically signed by: Arden Mas M.D. 09/27/24 21:13 PM
[2024-09-27] MEDS: CIPROFLOXACIN / D5W 400 MG/200 ML BAG IV STA (21:58)
--- NOTE | 2024-09-27 22:11 | XRay Report ---
Exam(s): XR PELVIS, 1-2 views EXAM: XR Pelvis, 1 or 2 Views CLINICAL HISTORY: Reason for exam: Trauma. TECHNIQUE: Frontal view of the pelvis. COMPARISON: 04/08/10 FINDINGS: Bones/joints: Uncomplicated left total hip arthroplasty. No acute fracture or dislocation. Lumbar spondylosis. Soft tissues: Unremarkable. IMPRESSION: No acute findings in the pelvis. Electronically signed by: Arden Mas M.D. 09/27/24 22:10 PM
--- NOTE | 2024-09-27 22:12 | XRay Report ---
Exam(s): XR CXR 1 VIEW EXAM: XR Chest, 1 View CLINICAL HISTORY: Reason for exam: Trauma. TECHNIQUE: Frontal view of the chest. COMPARISON: 10/21/23 FINDINGS: Lungs: Reduced lung volume with bronchovascular crowding. No consolidation. Pleural space: No pleural effusion or pneumothorax. Heart: Stable cardiomegaly. Bones/joints: Degenerative changes of both glenohumeral joints. No acute osseous findings. IMPRESSION: No acute findings in the chest. Electronically signed by: Arden Mas M.D. 09/27/24 22:11 PM
--- NOTE | 2024-09-27 22:57 | History & Physical Report ---
Date of Service September 27, 2024 Assessment & Plan (1) Acute pyelonephritis: (2) UTI (urinary tract infection): (3) Syncope and collapse: (4) Uncontrolled type 2 diabetes mellitus: (5) Dehydration: (6) Hyponatremia: (7) Abnormal LFTs (liver function tests): (8) Allergic reaction: Plan Patient is a 69-year-old female with past medical history of hypertension, GERD, type II DM on insulin, urinary incontinence, RLS, OA. patient presented after a fall at home due to lightheadedness and striking her head on the floor, diagnostic imaging negative for acute trauma however did reveal left-sided pyelonephritis and UA appears infectious. Patient is being admitted for IV antibiotics and PT/OT evals. #left pyelonephritis/UTI/leukocytosis UA appears infectious with positive for nitrates, 3+ leukocyte esterase, >50 WBC, >20 RBC, 3-5 hyaline, 4+ bacteria AP CT showed heterogeneous enhancement of left kidney with perinephritic stranding concerning for acute pyelonephritis, hazy appearance of urinary bladder wall potentially cystitis WC 16.17 low concern for sepsis, afebrile, VSS, lactate negative continue ciprofloxacin 400mg Q12h IV - allergy to Penicillin and Bactrim - hx of pansensitive e coli on numerous urine cultures - hx of T2DM, however defer pseudomonal coverage as no history of - EKG ordered to asses QTc follow urine and blood cultures #fall/syncope patient stated she got light headed, +HS on floor unsure if syncopized, denies mechanical fall most recent echo 2021, dobutamine stress - normal systolic function (EF 55-60%), mild LVH, no significant valvular dz holter monitor november 2023 showed frequent PCVs and one 17 beat run of supraventricular rhythm CK, troponin, procal negative CXR, pelvic XR, head CT, cervical spine CT, AP CT negative for acute trauma PT/OT consulted Aspiration and fall precautions questionable syncope - monitor on tele and echo ordered #t2dm a1c 07/2024 7.7 hold Ozempic on insulin degludec 60 u HS; will reduce to glargine 40 HS with stronger diet control in hospital glucose 250 - HS insulin ordered on admission loose SSI - Cf 30, defer carb ratio was given 125mg IV solu-medrol in ED; anticipate short term hyperglycemia #dehydration/hyponatremia poor po intake 09/27 Na 134 - suspect 09/02 hypovolemia urine specific gravity 1.032 will give 500 mL NSS at 80 ml/hr promote oral hydration #abnormal LFTs total bili 1.4, alk phos [address] showed normal liver, cholecystectomy status trend CMP #allergic reaction questionable allergic reaction to IV contrast? Benadryl 25mg IV and Solu-Medrol 125 Mg IV ordered in ED Patient denies any rash, dyspnea, or other anaphylactic symptoms Defer further steroid use Chronic stable diagnoses: urinary incontinence - continue vibegron RLS - continue pregabalin HTN - continue amlodipine and carvedilol GERD - continue PPI VTE ppx: SCDs, defer chemical ppx with recent fall Diet: t2dm Dispo: med/tele Admission and Anticipated Discharge Date Admission Date: 09/28/24 History of Present Illness Chief Complaint: fall Primary Care Provider: Mer Jack DO Patient is a 69-year-old female with past medical history of hypertension, GERD, type II DM on insulin, urinary incontinence, RLS, OA. patient presented after a fall at home due to lightheadedness and striking her head on the floor, diagnostic imaging negative for acute trauma however did reveal left-sided pyelonephritis and UA appears infectious. Patient is being admitted for IV antibiotics and PT/OT evals. Patient seen at bedside. She stated that today she got lightheaded and fell hitting her head on the floor, she is not on any blood thinners. She stated she is unsure if she lost consciousness, she may have. She stated she just got lightheaded, denies dizziness/the room spinning, denies chest pain or shortness of breath prior to the fall. She stated she did not trip over anything. she denies any current lightheadedness, headache, or pain. On diagnostic imaging for trauma, patient was found to have left-sided pyelonephritis and cystitis, UA also suspicious for infection. Patient stated she has had left-sided back pain for multiple days and felt feverish, afebrile on admission. She also endorses urinary symptoms of burning with urination today. She does have a history of urinary incontinence and wears depends. She also endorses rhinorrhea and cough for several days. Patient denies headache, current dizziness, current lightheadedness, dyspnea, dyspnea on exertion, chest pain, abdominal pain. Regarding receiving Benadryl and Solu-Medrol in ED, patient denies having a llergic reaction. She has no history of allergy to IV contrast and denies any dyspnea, itchiness, sore throat after receiving IV contrast. She denies history of tobacco use or alcohol use. She stated she does have a history of diabetes and uses insulin 60 units at bedtime, she has not had any home medications today including insulin. Will order on admission. She wishes to be full code. She does not use oxygen at baseline. Patient is agreeable to PT/OT evals. Allergies Allergy/AdvReac Type Severity Reaction Status Date / Time tetanus toxoid, adsorbed Allergy Severe TROUBLE Verified 08/03/24 16:20 BREATHING Penicillins Allergy Intermediate ITCHINESS Verified 09/28/24 10:31 Fish Containing Products Allergy Unknown Unknown Verified 08/03/24 16:20 onion Allergy Unknown ? Verified 08/03/24 16:20 REACTION, ALLERGY SHOWN ON SKIN TEST orange Allergy Unknown PATCH Verified 08/03/24 16:20 TESTED HIVES REACTION shellfish derived Allergy Unknown Unknown Verified 08/03/24 16:20 atorvastatin [From Lipitor] AdvReac Intermediate Headache Verified 08/03/24 16:20 meperidine AdvReac Intermediate NAUSEA AND Verified 08/03/24 16:20 VOMITING metformin AdvReac Intermediate diarrhea Verified 08/03/24 16:20 morphine AdvReac Intermediate Gets wild Verified 08/03/24 16:20 and has the shakes oxycodone AdvReac Intermediate Nausea/Vomi Verified 08/03/24 16:20 ting tomato AdvReac Intermediate COUGHING Verified 08/03/24 16:20 sulfamethoxazole AdvReac Unknown Unknown Verified 08/03/24 16:20 [From Bactrim] trimethoprim [From Bactrim] AdvReac Unknown Unknown Verified 08/03/24 16:20 Home Medications Medication Instructions Recorded Confirmed Type blood sugar diagnostic (OneTouch #400 ea 09/19/20 08/03/24 Rx Ultra Blue Test Strip) Wheeled Walker #1 ea 07/09/21 08/03/24 Rx aspirin 81 mg tablet,delayed 81 mg PO HS 04/05/22 09/27/24 History release Scooter #1 ea 06/02/22 08/03/24 Rx calcitonin (salmon) 200 1 spray NA DAILY #3.7 mL 07/07/22 09/27/24 Rx unit/actuation nasal spray BD Ultra-Fine Araceli Pen Needle 32 #200 ea 04/06/23 08/03/24 Rx gauge x 5/32" (pen needle, diabetic) OneTouch Ultra2 Meter #1 ea 07/07/23 08/03/24 Rx (blood-glucose meter) blood-glucose meter (OneTouch #1 ea 08/15/23 08/03/24 Rx Ultra2 Meter) cholecalciferol (vitamin D3) 50 50 mcg PO DAILY 09/07/23 09/27/24 History mcg (2,000 unit) capsule (Vitamin D3) acetaminophen 325 mg tablet 650 mg PO TID PRN Pain 09/15/23 09/27/24 History lancets #400 ea 09/16/23 08/03/24 Rx nystatin-triamcinolone 100,000 1 applic topical BID #30 grams 09/19/23 09/27/24 Rx unit/g-0.1 % topical cream diaper,brief,adult,disposable (Day #120 ea 09/22/23 08/03/24 Rx and Night Brief, Large) conjugated estrogens 0.625 mg/gram 1 applic vaginal 2XWK 30 days #30 10/10/23 09/27/24 Rx vaginal cream (Premarin) grams loratadine 10 mg tablet (Claritin) 10 mg PO DAILY #90 tabs 05/25/24 09/27/24 Rx carvedilol 6.25 mg tablet 6.25 mg PO BID #90 tabs 06/26/24 09/27/24 Rx vibegron 75 mg tablet (Gemtesa) 75 mg PO DAILY #30 tabs 07/06/24 09/27/24 Rx duloxetine 60 mg capsule,delayed 60 mg PO BID #60 caps 07/20/24 09/27/24 Rx release omeprazole 40 mg capsule,delayed 40 mg PO QAM #90 caps 07/20/24 09/27/24 Rx release pregabalin 150 mg capsule 150 mg PO BID #60 caps 07/20/24 09/27/24 Rx semaglutide 1 mg/dose (4 mg/3 mL) 1 mg (0.75 mL) subcut WK 90 days 08/03/24 09/27/24 Rx subcutaneous pen injector #9 mL insulin degludec 100 unit/mL (3 60 unit (0.6 mL) subcut HS #30 mL 08/17/24 09/27/24 Rx mL) subcutaneous pen (Tresiba FlexTouch U-100 insulin) amlodipine 5 mg tablet (Norvasc) 5 mg PO QAM #90 tabs 08/21/24 09/27/24 Rx omega [id number]-[id number]-fish oil 1,000 mg 1 cap PO HS #90 caps 08/22/24 09/27/24 Rx (120 mg-180 mg) capsule (Fish Oil) Past Med/Surg History Problem List (Updated 09/28/24 @ 02:50 by Sravanthi Carolina PA-C) Allergic reaction Abnormal LFTs (liver function tests) Hyponatremia Dehydration Syncope and collapse UTI (urinary tract infection) Acute pyelonephritis (Acute) CHI (closed head injury) (Acute) Fall (Acute) Situational anxiety Kidney stones Microscopic hematuria Murmur Uncontrolled type 2 diabetes mellitus GERD (gastroesophageal reflux disease) HTN (hypertension) Recurrent UTI Morbid obesity CAD (coronary artery disease) Ambulatory dysfunction (Acute) Diabetic nephropathy associated with type 2 diabetes mellitus Hyperlipidemia associated with type 2 diabetes mellitus Loss of protective sensation of skin of foot Urinary incontinence Microalbuminuria Osteoarthritis RLS (restless legs syndrome) Diabetic peripheral neuropathy associated with type 2 diabetes mellitus (Chronic) Medical History Edema Vitamin D deficiency Left knee DJD Right knee DJD C. difficile diarrhea Acute UTI (urinary tract infection) Acute encephalopathy Closed compression fracture of L1 vertebra Diverticulitis History of anesthesia reaction PT STATES SHE IS SLOW TO WAKE, NO DOCUMENTED ADVERSE REACTION Anemia Surgical History History of cholecystectomy 12/28/17 History of total knee replacement R 2015, L 2016 S/P tonsillectomy S/P partial thyroidectomy S/P total hysterectomy History of total left hip arthroplasty 2007 S/P inguinal hernia repair Family History Mother Depression Diabetes Gallbladder disease Hypertension Lung cancer Alzheimer disease Father Lung cancer Bone cancer Grandmother Myocardial infarction Family/Other Breast cancer cousin Ovarian cancer Denies family history of Prostate cancer Colorectal cancer Social History Smoking Status: Never smoker Cigarettes Per Day: TRIED OCC. 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 Beliefs That Will Affect Care: None marital status: Current Living Situation: Spouse current occupational status: retired How many Children do You have: 2 Feels Safe at Home: Yes Diet: regular Diet Comment: regular caffeine: Yes during the past year weight has: remained stable Dental Care, Regularly: Yes Physical Activity Frequency: 1-2 Times per Week Seatbelt Use: always Sunscreen Use: No Assistive Devices: Walker Review of Systems Review of Systems: see HPI Physical Exam Physical Exam: The patient is awake, alert and oriented 3, well developed and well nourished, normocephalic and atraumatic, in no acute distress. Non-toxic appearing. HEENT- EOMI, mucous membranes moist. Hearing grossly intact. Heart-normal S1 and S2. No murmurs, rubs or gallops. Lungs-clear bilaterally, no respiratory distress, no accessory muscle use. Abdomen-normal bowel sounds and soft. No ascites noted. Non-tender. Extremities- no clubbing, cyanosis, or edema. Rheumatologic-normal range of motion. Psychiatric-normal affect. Results & Data Results & Data Vital Signs (Past 12 Hours) Vital Signs Temp Pulse Pulse Resp BP BP Pulse Ox 09/27/24 22:00 67 17 175/76 H 92 09/27/24 21:00 68 18 165/75 H 93 09/27/24 20:00 93 09/27/24 19:52 68 09/27/24 19:34 36.8 C 70 18 188/108 H 93 O2 Del Method 09/27/24 22:00 09/27/24 21:00 Room Air 09/27/24 20:00 Room Air 09/27/24 19:52 09/27/24 19:34 Room Air Laboratory Results Reviewed CBC, PT/INR, VBG, CMP, Pro-Norm, CK, UA, troponin, mag Diagnostic Findings reviewed pelvis XR, head CT, chest XR, cervical spine CT, AP CT Medications Administered ed - cipro 400mg IV, Benadryl 25mg IV, solu-medrol 125mg IV ECG Additional Comments: ordered Code Status & VTE Plan Code Status full code VTE Prophylaxis Plan VTE Prophylaxis will be ordered: Yes Supervising Physician Co-Signing Physician Notes Attending addendum: I have physically seen this patient, have supervised the medical residents activities, and agree with the H&P unless as otherwise noted. Assessment and Plan: The patient is a 69-year-old female with past medical history including hypertension, GERD, diabetes mellitus type 2 on insulin, urinary incontinence, RLS, OA. She presents to the emergency department after a fall due to lightheadedness and reports striking her head on the floor. CT scan head was negative, CT scan cervical spine is negative. CT scan abdomen and pelvis consistent with left pyelonephritis, and probable cystitis, for which she is referred for evaluation for admission Left pyelonephritis/UTI with cystitis- Follow urine culture and sensitivity CT scan abdomen pelvis shows heterogeneous enhancement of left kidney with perinephric stranding concerning for acute pyelonephritis, hazy appearance of urinary bladder wall potentially cystitis Empiric ciprofloxacin 40 mg IV every 12 hours. Notation of allergy to both penicillin and Bactrim History of pansensitive E. coli on previous urine cultures IV fluids as noted Fall/syncope-CT head negative, CT cervical spine negative, CT abdomen pelvis negative for acute trauma Likely associated with physical distress of urinary tract infections Consult PT/OT Aspiration and fall precautions Diabetes mellitus type 2- Hold Ozempic Continue insulin degludec as noted Placed on Accu-Cheks with NovoLog SSI Remaining orders and notations as noted PG Care Time/CCT Total # of Minutes Spent Total Time Spent with Patient: Total time spent is greater than 50% in coordination of care (as documented) at patient's floor/unit and/or counseling patient: Coding Level of Care Code 81482 INT INP/OBS CARE 3/75MIN Diagnoses Acute pyelonephritis N10 UTI (urinary tract infection) N39.0 Syncope and collapse R55 Uncontrolled type 2 diabetes mellitus with hyperglycemia E11.65 Glycemic state: with hyperglycemia Dehydration E86.0 Hyponatremia E87.1 Abnormal LFTs (liver function tests) R79.89 Allergic reaction T78.40XA (4) Uncontrolled type 2 diabetes mellitus Glycemic state: with hyperglycemia Qualified Code(s): E11.65 - Type 2 diabetes mellitus with hyperglycemia
[2024-09-27] MEDS ORDERED: CARBOHYDRATES FOR HYPOGLYCEMIA PO PRN (23:11)
[2024-09-27] MEDS ORDERED: GLUCOSE 40% GEL 15 GM TUBE PO PRN (23:11)
[2024-09-27] MEDS ORDERED: DEXTROSE 50% 50 ML SYRINGE IV PRN (23:11)
[2024-09-27] MEDS ORDERED: GLUCAGON FOR INJ 1 MG VIAL SQ PRN (23:11)
[2024-09-27] MEDS ORDERED: GLUCOSE 10 TAB/TUBE PO PRN (23:11)
[2024-09-28] MEDS: SODIUM CHLORIDE 0.9% 500 ML IV SCH (00:22)
--- NOTE | 2024-09-28 01:03 | Emergency Department Note ---
History of Present Illness General Chief complaint: Fall Stated complaint: FALL, BACK PAIN, HEAD PAIN Time Seen by Provider: 09/27/24 19:55 History of Present Illness Provider complaint: Fall Maximum Pain Intensity: 10 69-year-old female presents emergency department for fall. Patient's reports he was trying to help her get dressed and she slipped and hit the back of her head. Possible LOC. reports that the patient has been weaker than normal. Son reports that the patient has a history of bad UTIs. No nausea vomiting or fever. Home Medications Medication Instructions Recorded Confirmed Type blood sugar diagnostic (OneTouch #400 ea 09/19/20 08/03/24 Rx Ultra Blue Test Strip) Wheeled Walker #1 ea 07/09/21 08/03/24 Rx aspirin 81 mg tablet,delayed 81 mg PO HS 04/05/22 09/27/24 History release Scooter #1 ea 06/02/22 08/03/24 Rx calcitonin (salmon) 200 1 spray NA DAILY #3.7 mL 07/07/22 09/27/24 Rx unit/actuation nasal spray BD Ultra-Fine Araceli Pen Needle 32 #200 ea 04/06/23 08/03/24 Rx gauge x 5/32" (pen needle, diabetic) OneTouch Ultra2 Meter #1 ea 07/07/23 08/03/24 Rx (blood-glucose meter) blood-glucose meter (OneTouch #1 ea 08/15/23 08/03/24 Rx Ultra2 Meter) cholecalciferol (vitamin D3) 50 50 mcg PO DAILY 09/07/23 09/27/24 History mcg (2,000 unit) capsule (Vitamin D3) acetaminophen 325 mg tablet 650 mg PO TID PRN Pain 09/15/23 09/27/24 History lancets #400 ea 09/16/23 08/03/24 Rx nystatin-triamcinolone 100,000 1 applic topical BID #30 grams 09/19/23 09/27/24 Rx unit/g-0.1 % topical cream diaper,brief,adult,disposable (Day #120 ea 09/22/23 08/03/24 Rx and Night Brief, Large) conjugated estrogens 0.625 mg/gram 1 applic vaginal 2XWK 30 days #30 10/10/23 09/27/24 Rx vaginal cream (Premarin) grams loratadine 10 mg tablet (Claritin) 10 mg PO DAILY #90 tabs 05/25/24 09/27/24 Rx carvedilol 6.25 mg tablet 6.25 mg PO BID #90 tabs 06/26/24 09/27/24 Rx vibegron 75 mg tablet (Gemtesa) 75 mg PO DAILY #30 tabs 07/06/24 09/27/24 Rx duloxetine 60 mg capsule,delayed 60 mg PO BID #60 caps 07/20/24 09/27/24 Rx release omeprazole 40 mg capsule,delayed 40 mg PO QAM #90 caps 07/20/24 09/27/24 Rx release pregabalin 150 mg capsule 150 mg PO BID #60 caps 07/20/24 09/27/24 Rx semaglutide 1 mg/dose (4 mg/3 mL) 1 mg (0.75 mL) subcut WK 90 days 08/03/24 09/27/24 Rx subcutaneous pen injector #9 mL insulin degludec 100 unit/mL (3 60 unit (0.6 mL) subcut HS #30 mL 08/17/24 09/27/24 Rx mL) subcutaneous pen (Tresiba FlexTouch U-100 insulin) amlodipine 5 mg tablet (Norvasc) 5 mg PO QAM #90 tabs 08/21/24 09/27/24 Rx omega 2-xpo-gcd-fish oil 1,000 mg 1 cap PO HS #90 caps 08/22/24 09/27/24 Rx (120 mg-180 mg) capsule (Fish Oil) Allergies Allergy/AdvReac Type Severity Reaction Status Date / Time tetanus toxoid, adsorbed Allergy Severe TROUBLE Verified 08/03/24 16:20 BREATHING Penicillins Allergy Intermediate ITCHINESS Verified 08/03/24 16:20 Fish Containing Products Allergy Unknown Unknown Verified 08/03/24 16:20 onion Allergy Unknown ? Verified 08/03/24 16:20 REACTION, ALLERGY SHOWN ON SKIN TEST orange Allergy Unknown PATCH Verified 08/03/24 16:20 TESTED HIVES REACTION shellfish derived Allergy Unknown Unknown Verified 08/03/24 16:20 atorvastatin [From Lipitor] AdvReac Intermediate Headache Verified 08/03/24 16:20 meperidine AdvReac Intermediate NAUSEA AND Verified 08/03/24 16:20 VOMITING metformin AdvReac Intermediate diarrhea Verified 08/03/24 16:20 morphine AdvReac Intermediate Gets wild Verified 08/03/24 16:20 and has the shakes oxycodone AdvReac Intermediate Nausea/Vomi Verified 08/03/24 16:20 ting tomato AdvReac Intermediate COUGHING Verified 08/03/24 16:20 sulfamethoxazole AdvReac Unknown Unknown Verified 08/03/24 16:20 [From Bactrim] trimethoprim [From Bactrim] AdvReac Unknown Unknown Verified 08/03/24 16:20 Past Med/Surg History Problem List (Updated 09/28/24 @ 01:03 by Jame Goyal MD) Acute pyelonephritis (Acute) CHI (closed head injury) (Acute) Fall (Acute) Situational anxiety Kidney stones Microscopic hematuria Murmur Uncontrolled type 2 diabetes mellitus GERD (gastroesophageal reflux disease) HTN (hypertension) Recurrent UTI Morbid obesity CAD (coronary artery disease) Ambulatory dysfunction (Acute) Diabetic nephropathy associated with type 2 diabetes mellitus Hyperlipidemia associated with type 2 diabetes mellitus Loss of protective sensation of skin of foot Urinary incontinence Microalbuminuria Osteoarthritis RLS (restless legs syndrome) Diabetic peripheral neuropathy associated with type 2 diabetes mellitus (Chronic) Medical History Edema Vitamin D deficiency Left knee DJD Right knee DJD C. difficile diarrhea Acute UTI (urinary tract infection) Acute encephalopathy Closed compression fracture of L1 vertebra Diverticulitis History of anesthesia reaction PT STATES SHE IS SLOW TO WAKE, NO DOCUMENTED ADVERSE REACTION Anemia Surgical History History of cholecystectomy 12/28/17 History of total knee replacement R 2015, L 2016 S/P tonsillectomy S/P partial thyroidectomy S/P total hysterectomy History of total left hip arthroplasty 2007 S/P inguinal hernia repair Family History Mother Depression Diabetes Gallbladder disease Hypertension Lung cancer Alzheimer disease Father Lung cancer Bone cancer Grandmother Myocardial infarction Family/Other Breast cancer cousin Ovarian cancer Denies family history of Prostate cancer Colorectal cancer Social History Smoking Status: Never smoker Cigarettes Per Day: TRIED OCC. 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 Finished Required: No Beliefs That Will Affect Care: None marital status: Current Living Situation: Spouse current occupational status: retired How many Children do You have: 2 Feels Safe at Home: Yes Diet: regular Diet Comment: regular caffeine: Yes during the past year weight has: remained stable Dental Care, Regularly: Yes Physical Activity Frequency: 1-2 Times per Week Seatbelt Use: always Sunscreen Use: No Assistive Devices: Glasses and Walker Physical Exam Vital Signs Vital Signs - 24 hr 09/27/24 19:34 09/27/24 19:52 09/27/24 20:00 Temperature 36.8 C Temperature Source Oral Pulse Rate 70 68 Pulse Rate [Apical] Respiratory Rate 18 Blood Pressure 188/108 H Blood Pressure [Right Arm] Blood Pressure Mean 134 Blood Pressure Mean [Right Arm] Blood Pressure Position Semi-fowlers Blood Pressure Position [Right Arm] Pulse Oximetry 93 93 Oxygen Delivery Method Room Air Room Air Sepsis Recent Fever Within 48 Hours No Sepsis New/Unexplained Change in Mental Status No Sepsis Action Taken by Nursing No Action Required 09/27/24 21:00 09/27/24 22:00 09/28/24 00:00 Temperature 36.9 C Temperature Source Oral Pulse Rate Pulse Rate [Apical] 68 67 68 Respiratory Rate 18 17 18 Blood Pressure Blood Pressure [Right Arm] 165/75 H 175/76 H 164/73 H Blood Pressure Mean Blood Pressure Mean [Right Arm] 105 109 103 Blood Pressure Position Blood Pressure Position [Right Arm] Semi-fowlers Semi-fowlers Pulse Oximetry 93 92 90 Oxygen Delivery Method Room Air Room Air Sepsis Recent Fever Within 48 Hours Sepsis New/Unexplained Change in Mental Status Sepsis Action Taken by Nursing 09/28/24 00:10 Temperature Temperature Source Pulse Rate 68 Pulse Rate [Apical] Respiratory Rate Blood Pressure Blood Pressure [Right Arm] Blood Pressure Mean Blood Pressure Mean [Right Arm] Blood Pressure Position Blood Pressure Position [Right Arm] Pulse Oximetry Oxygen Delivery Method Sepsis Recent Fever Within 48 Hours Sepsis New/Unexplained Change in Mental Status Sepsis Action Taken by Nursing Physical Exam GENERAL: Patient smells of urine HENT: Exam performed. -Head: Normocephalic and atraumatic. EYES: Conjunctivae and EOM are normal. Pupils are equal, round, and reactive to light. Right eye exhibits no discharge. Left eye exhibits no discharge. No scleral icterus. NECK: Normal range of motion. Neck supple. No JVD present. No spinous process tenderness present. CV: Normal rate, regular rhythm, normal heart sounds and intact distal pulses. There is no peripheral edema. Palpable radial pulses bue. PULM/CHEST: Effort normal and breath sounds normal. No respiratory distress. No stridor. She has no wheezes. She has no rales. -Chest Wall: No crepitus bilaterally. ABD: The abdomen is soft and obese. Ecchymosis over the patient's anterior abdominal wall.She has no distension. There is no tenderness. There is no rebound, no guarding MUSC/SKEL: Pelvis stable. NEURO: Motor and sensation grossly intact. Course Course 1954: The patient was evaluated in room B10. A complete history and physical exam was performed Cardiac monitoring: An order was placed for continuous cardiac monitoring. The monitor shows a rate of 70 with sinus rhythm interpreted by il 2140: Vital signs stable. Labs show leukocytosis of 16. Imaging shows no traumatic injury. Imaging does show pyelonephritis. Urinalysis is concerning for infection. Patient be treated with IV antibiotics Cipro and admitted to the hospitalist team. Administered Medications Sodium Chloride (Nss) 500 mls @ 80 mls/hr IV .Q6H15M [facility] Stop: 09/28/24 05:59 Last Admin: 09/28/24 00:22 Dose: 80 mls/hr Documented By: HERBER Discontinued Medications Diphenhydramine HCl (Diphenhydramine 50 Mg/Ml Vial) 25 mg IV NOW STA Stop: 09/27/24 20:01 Last Admin: 09/27/24 20:15 Dose: 25 mg Documented By: TORIBIO Ciprofloxacin (Cipro / D5w) 400 mg in 200 mls @ 100 mls/hr IV NOW STA; Protocol Stop: 09/27/24 23:40 Last Infusion: 09/28/24 00:25 Dose: Infused Documented By: Admin: 09/27/24 21:58 Dose: 100 mls/hr Documented By: HERBER Methylprednisolone (Methylprednisolone 125 Mg/2 Ml Vial) 125 mg IV NOW STA Stop: 09/27/24 20:01 Last Admin: 09/27/24 20:15 Dose: 125 mg Documented By: TORIBIO Medical Decision Making Laboratory Data Attestation: I reviewed the patient's lab results. 09/27/24 19:48 09/27/24 19:48 Lab Results 09/27/24 09/27/24 09/27/24 Range/Units 19:48 19:56 20:42 WBC 16.17 H (4.8-10.8) K/ul RBC 5.26 (4.20-5.40) M/uL Hgb 15.9 (12.0-16.0) g/dl POC Hgb 17.0 H (12.0-16.0) g/dl Hct 47.5 H (37.0-47.0) % POC Hct 50 H (37-47) % MCV 90.3 (80.0-100.0) fL MCH 30.2 (25.0-34.0) pg MCHC 33.5 (32.0-36.0) g/dL RDW Std Deviation 45.3 (36.4-46.3) fL RDW Coeff of Charly 13.6 (11.5-14.5) % Plt Count 175 (130-400) K/uL MPV 11.8 (9.4-12.4) fL Immature Gran % (Auto) 0.6 % Neut % (Auto) 87.0 % Lymph % (Auto) 7.9 % [place] % (Auto) 4.2 % Eos % (Auto) 0.1 % Baso % (Auto) 0.2 % Neut # (Auto) 14.09 H (1.40-6.50) K/uL Lymph # (Auto) 1.27 (1.20-3.40) K/uL [place] # (Auto) 0.68 H (0.11-0.59) K/uL Eos # (Auto) 0.01 (0.00-0.50) K/uL Baso # (Auto) 0.03 (0.00-0.20) K/uL Immature Gran # (Auto) 0.09 (0.01-0.20) K/uL PT 11.8 (9.0-12.0) Seconds INR 1.1 (0.9-1.1) APTT 27 (21-31) Seconds PTT Ratio 1.0 VBG pH 7.37 (7.36-7.41) VBG pCO2 52 H (38-50) mmHg VBG pO2 20 mmHg VBG HCO3 30 mmol/L VBG O2 Saturation < 60.0 % VBG Base Excess 3.6 mEq/L POC Sodium 136 (135-144) mmol/L Sodium 134 L (136-145) mmol/L POC Potassium 4.0 (3.3-5.0) mmol/L Potassium 4.0 (3.5-5.1) mmol/L POC Chloride 96 L (101-112) mmol/L Chloride 97 L (98-107) mmol/L Carbon Dioxide 31 (21-32) mmol/L POC Total CO2 28 (24-31) mmol/L Anion Gap 6 (3-11) POC Anion Gap 16.0 (16-25) mmol/L POC BUN 9 (7-18) mg/dl BUN 10 (6-23) mg/dl Creatinine 0.71 (0.6-1.2) mg/dl POC Creatinine 0.7 (0.6-1.3) mg/dl Est Cr Clr Drug Dosing 71.8 ml/min eGFR 91.98 BUN/Creatinine Ratio 14.1 (10-20) Glucose 249 H (70-99(Fasting)) mg/dl POC Glucose (70-99) mg/dl POC Glucose (other) 250 H (70-99) mg/dl Lactate 1.5 (0.4-2.0) mmol/L Calcium 9.7 (8.6-10.3) mg/dl POC Ioniz Calcium Britney 1.01 L (1.12-1.32) mmol/l Magnesium 1.9 (1.7-2.4) mg/dl Total Bilirubin 1.4 H (0.2-1.0) mg/dl AST 25 (13-39) U/L ALT 34 (7-52) U/L Alkaline Phosphatase 144 H (34-104) U/L Total Creatine Kinase 130 (26-192) U/L Total Protein 7.7 (6.0-8.3) gm/dl Albumin 3.9 (3.4-5.0) gm/dl Globulin 3.8 (2.5-4.0) gm/dl Albumin/Globulin Ratio 1.0 (0.9-2) Lipase 15 (11-82) U/L Procalcitonin 0.27 (0-0.5) ng/ml Urine Color Urine Appearance (Clear) Urine pH (4.5-7.5) Ur Specific [place] (1.000-1.030) Urine Protein (Negative) Urine Glucose (UA) (Negative) Urine Ketones (Negative) Urine Blood (Negative) Urine Nitrite (Negative) Urine Bilirubin (Negative) Urine Urobilinogen (Negative) Ur Leukocyte Esterase (Negative) Urine WBC (Auto) (0-5) /hpf Urine RBC (Auto) (0-2) /hpf U Hyaline Cast (Auto) (0-2) /lpf U Epithel Cells (Auto) (0-2) /hpf Urine Bacteria (Auto) (None Seen) 09/27/24 09/28/24 Range/Units Unknown 00:19 WBC (4.8-10.8) K/ul RBC (4.20-5.40) M/uL Hgb (12.0-16.0) g/dl POC Hgb (12.0-16.0) g/dl Hct (37.0-47.0) % POC Hct (37-47) % MCV (80.0-100.0) fL MCH (25.0-34.0) pg MCHC (32.0-36.0) g/dL RDW Std Deviation (36.4-46.3) fL RDW Coeff of Charly (11.5-14.5) % Plt Count (130-400) K/uL MPV (9.4-12.4) fL Immature Gran % (Auto) % Neut % (Auto) % Lymph % (Auto) % [place] % (Auto) % Eos % (Auto) % Baso % (Auto) % Neut # (Auto) (1.40-6.50) K/uL Lymph # (Auto) (1.20-3.40) K/uL [place] # (Auto) (0.11-0.59) K/uL Eos # (Auto) (0.00-0.50) K/uL Baso # (Auto) (0.00-0.20) K/uL Immature Gran # (Auto) (0.01-0.20) K/uL PT (9.0-12.0) Seconds INR (0.9-1.1) APTT (21-31) Seconds PTT Ratio VBG pH (7.36-7.41) VBG pCO2 (38-50) mmHg VBG pO2 mmHg VBG HCO3 mmol/L VBG O2 Saturation % VBG Base Excess mEq/L POC Sodium (135-144) mmol/L Sodium (136-145) mmol/L POC Potassium (3.3-5.0) mmol/L Potassium (3.5-5.1) mmol/L POC Chloride (101-112) mmol/L Chloride (98-107) mmol/L Carbon Dioxide (21-32) mmol/L POC Total CO2 (24-31) mmol/L Anion Gap (3-11) POC Anion Gap (16-25) mmol/L POC BUN (7-18) mg/dl BUN (6-23) mg/dl Creatinine (0.6-1.2) mg/dl POC Creatinine (0.6-1.3) mg/dl Est Cr Clr Drug Dosing ml/min eGFR BUN/Creatinine Ratio (10-20) Glucose (70-99(Fasting)) mg/dl POC Glucose 273 H (70-99) mg/dl POC Glucose (other) (70-99) mg/dl Lactate (0.4-2.0) mmol/L Calcium (8.6-10.3) mg/dl POC Ioniz Calcium Britney (1.12-1.32) mmol/l Magnesium (1.7-2.4) mg/dl Total Bilirubin (0.2-1.0) mg/dl AST (13-39) U/L ALT (7-52) U/L Alkaline Phosphatase (34-104) U/L Total Creatine Kinase (26-192) U/L Total Protein (6.0-8.3) gm/dl Albumin (3.4-5.0) gm/dl Globulin (2.5-4.0) gm/dl Albumin/Globulin Ratio (0.9-2) Lipase (11-82) U/L Procalcitonin (0-0.5) ng/ml Urine Color Yellow Urine Appearance Turbid A (Clear) Urine pH 7.0 (4.5-7.5) Ur Specific [place] 1.032 H (1.000-1.030) Urine Protein 1+ H (Negative) Urine Glucose (UA) 1+ H (Negative) Urine Ketones 2+ H (Negative) Urine Blood Trace H (Negative) Urine Nitrite Positive A (Negative) Urine Bilirubin Negative (Negative) Urine Urobilinogen Negative (Negative) Ur Leukocyte Esterase 3+ H (Negative) Urine WBC (Auto) >50 H (0-5) /hpf Urine RBC (Auto) >20 H (0-2) /hpf U Hyaline Cast (Auto) 3-5 H (0-2) /lpf U Epithel Cells (Auto) 0-2 (0-2) /hpf Urine Bacteria (Auto) 4+ H (None Seen) Imaging Data Attestation: I personally reviewed and interpreted this imaging study as follows: My Impression: Pelvis x-ray: No acute fracture or dislocation Radiologist's Impression: Abdomen/Pelvis CT 09/27/24 20:00 Exam(s): CT ABDOMEN + PELVIS With Contrast IV Amt: 93 cc opti 320 EXAM: CT Abdomen and Pelvis With Intravenous Contrast CLINICAL HISTORY: Reason for exam: Trauma. TECHNIQUE: Axial computed tomography images of the abdomen and pelvis with intravenous contrast. CTDI is 27.99 mGy and DLP is 1547.89 mGy-cm. Automated exposure control was utilized for the study. A dose lowering technique was utilized adhering to the principles of ALARA. CONTRAST: Patient received 93 cc opti 320 of IV contrast COMPARISON: 08/03/22 FINDINGS: Lung bases: Unremarkable. ABDOMEN: Liver: Unremarkable. No mass. Gallbladder and bile ducts: Cholecystectomy. No ductal dilation. Pancreas: Unremarkable. No mass. No ductal dilation. Spleen: Unremarkable. No splenomegaly. Adrenals: Unremarkable. No mass. Kidneys and ureters: Heterogeneous enhancement of the left kidney with perinephric stranding concerning for acute pyelonephritis. Simple bilateral renal cysts; no follow-up indicated. No hydronephrosis. Stomach and bowel: Sigmoid diverticulosis. No bowel obstruction. No mucosal thickening. PELVIS: Appendix: Normal appendix. Bladder: Hazy appearance of the urinary bladder wall, potentially cystitis. Reproductive: Hysterectomy. ABDOMEN and PELVIS: Intraperitoneal space: Unremarkable. No free air, significant free fluid, or fluid collection. Bones/joints: Thoracolumbar spondylosis. Left total hip arthroplasty. Mild-moderate osteoarthritis of the right hip. Chronic L1 inferior endplate compression fracture. No dislocation. Soft tissues: Previous ventral mesh hernia repair. Vasculature: Unremarkable. No abdominal aortic aneurysm. Lymph nodes: Unremarkable. No enlarged lymph nodes. IMPRESSION: 1. Heterogeneous enhancement of the left kidney with perinephric stranding concerning for acute pyelonephritis. Correlate with urinalysis. 2. Hazy appearance of the urinary bladder wall, potentially cystitis. Electronically signed by: Arden Mas M.D. 09/27/24 21:[address] 09/27/24 20:00 Exam(s): CT C SPINE EXAM: CT Cervical Spine Without Intravenous Contrast CLINICAL HISTORY: Reason for exam: Trauma. TECHNIQUE: Axial computed tomography images of the cervical spine without intravenous contrast. CTDI is 26.96 mGy and DLP is 590.04 mGy-cm. Automated exposure control was utilized for the study. A dose lowering technique was utilized adhering to the principles of ALARA. COMPARISON: 09/26/22 FINDINGS: Vertebrae: Osteopenia. No acute fracture or subluxation. Discs/spinal canal/neural foramina: Disc and uncovertebral joint degeneration in the mid and lower cervical spine. Bilateral facet joint degeneration. Bulky ossification of the posterior longitudinal ligament throughout the cervical spine producing long segment of spinal canal stenosis, moderate-severe in the upper cervical spine, which is stable from prior. Foraminal narrowing at the C5-C6 level. Soft tissues: Unremarkable. IMPRESSION: No acute findings in the cervical spine. 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 Electronically signed by: Arden Mas M.D. 09/27/24 21:13 PM Chest X-Ray 09/27/24 20:00 Exam(s): XR CXR 1 VIEW EXAM: XR Chest, 1 View CLINICAL HISTORY: Reason for exam: Trauma. TECHNIQUE: Frontal view of the chest. COMPARISON: 10/21/23 FINDINGS: Lungs: Reduced lung volume with bronchovascular crowding. No consolidation. Pleural space: No pleural effusion or pneumothorax. Heart: Stable cardiomegaly. Bones/joints: Degenerative changes of both glenohumeral joints. No acute osseous findings. IMPRESSION: No acute findings in the chest. Electronically signed by: Arden Mas M.D. 09/27/24 22:[address] 09/27/24 20:00 Exam(s): CT HEAD Without Contrast EXAM: CT Head Without Intravenous Contrast CLINICAL HISTORY: Reason for exam: Trauma. TECHNIQUE: Axial computed tomography images of the head/brain without intravenous contrast. CTDI is 36.43 mGy and DLP is 702.46 mGy-cm. Automated exposure control was utilized for the study. A dose lowering technique was utilized adhering to the principles of ALARA. COMPARISON: 08/12/23 FINDINGS: Brain: Generalized parenchymal volume loss. Minimal chronic small vessel ischemic disease. Small chronic basal ganglia lacunar infarcts. Leach-white matter differentiation maintained. No hemorrhage, mass effect, parenchymal edema, or midline shift. Ventricles: No hydrocephalus. Bones/joints: No acute fracture. Soft tissues: Unremarkable. Vasculature: Intracranial atherosclerosis. Sinuses: Unremarkable as visualized. Mastoid air cells: No significant mastoid effusion. IMPRESSION: No acute intracranial process. Electronically signed by: Arden Mas M.D. 09/27/24 21:08 PM Pelvis X-Ray 09/27/24 20:00 Exam(s): XR PELVIS, 1-2 views EXAM: XR Pelvis, 1 or 2 Views CLINICAL HISTORY: Reason for exam: Trauma. TECHNIQUE: Frontal view of the pelvis. COMPARISON: 04/08/10 FINDINGS: Bones/joints: Uncomplicated left total hip arthroplasty. No acute fracture or dislocation. Lumbar spondylosis. Soft tissues: Unremarkable. IMPRESSION: No acute findings in the pelvis. Electronically signed by: Arden Mas M.D. 09/27/24 22:10 PM ECG Data Attestation: I personally reviewed and interpreted this ECG as follows: Rate (beats per minute): 68 Rhythm: + normal sinus ECG Intervals/blocks: + Normal QRS, + Normal FL and + Normal QT-c ECG ST segments: + Normal ST segments [facility] Narrative 1955: The patient was evaluated in room B10. A complete history and physical exam was performed Cardiac monitoring: An order was placed for continuous cardiac monitoring. The monitor shows a rate of 70 with sinus rhythm interpreted by il 2140: Vital signs stable. Labs show leukocytosis of 16. Imaging shows no traumatic injury. Imaging does show pyelonephritis. Urinalysis is concerning for infection. Patient be treated with IV antibiotics Cipro and admitted to the hospitalist team. Impression & Plan Fall, CHI (closed head injury), Acute pyelonephritis Discharge Plan Visit Data Chief Complaint: Fall Stated Complaint: FALL, BACK PAIN, HEAD PAIN ED Provider: Jame Goyal Discharge Problem: Fall, CHI (closed head injury), Acute pyelonephritis Patient Disposition: Admitted As Inpatient Forms Stand Alone Forms: [facility] Prescriptions Prescriptions: No Action (DME) OneTouch Ultra Blue Test Strip Strip See Dose Instructions .ROUTE .MEDSUPPLY Qty: 400 3RF Rx Instructions: test 4 times daily (DME) Wheeled Walker Misc See Rx Instructions .Route Qty: 1 0RF Rx Instructions: As directed (DME) Scooter Misc See Rx Instructions .Route Qty: 1 0RF Rx Instructions: Motorized Scooter (DME) pen needle, diabetic [BD Ultra-Fine Araceli Pen Needle] 32 gauge x 5/32" needle See Dose Instructions .ROUTE .MEDSUPPLY Qty: 200 3RF Rx Instructions: use 2 needles daily (DME) blood-glucose meter [OneTouch Ultra2 Meter] Misc See Rx Instructions .ROUTE .MEDSUPPLY Qty: 1 0RF Rx Instructions: Test blood sugars 4 times a day (DME) lancets Misc See Dose Instructions .ROUTE .MEDSUPPLY Qty: 400 3RF Dose Instruction: As directed Rx Instructions: Testing 4 times daily Premarin 0.625 mg/gram cream 1 applic vaginal 2XWK 30 Days Qty: 30 3RF Rx Instructions: TUESDAY & TUESDAY carvedilol 6.25 mg tablet 6.25 mg PO BID Qty: 90 2RF Rx Instructions: HOLD FOR SPB <110, OR HR < 60 Gemtesa 75 mg tablet 75 mg PO DAILY Qty: 30 2RF duloxetine 60 mg capsule,delayed release(DR/EC) 60 mg PO BID Qty: 60 5RF pregabalin 150 mg capsule 150 mg PO BID Qty: 60 5RF omeprazole 40 mg capsule,delayed release(DR/EC) 40 mg PO QAM Qty: 90 2RF Rx Instructions: TAKE ONE CAPSULE BY MOUTH EVERY DAY insulin degludec [Tresiba FlexTouch U-100] 100 unit/mL (3 mL) insulin pen 60 unit SUBCUT HS Qty: 30 4RF amlodipine [Norvasc] 5 mg tablet 5 mg PO QAM Qty: 90 1RF omega 6-jny-tbx-fish oil [Fish Oil] 1,000 (120-180) mg capsule 1 cap PO HS Qty: 90 2RF nystatin-triamcinolone 100,000-0.1 unit/g-% cream 1 applic topical BID Qty: 30 4RF (DME) Day and Night Brief, Large Misc See Rx Instructions .Route Qty: 120 5RF Rx Instructions: As directed loratadine [Claritin] 10 mg tablet 10 mg PO DAILY Qty: 90 1RF Ozempic 1 mg/dose (4 mg/3 mL) pen injector 1 mg subcut WK 90 Days Qty: 9 1RF Rx Instructions: TUESDAYS aspirin 81 mg Tablet,Delayed Release (Dr/Ec) 81 mg PO HS calcitonin (salmon) 200 unit/actuation [place],Non-Aerosol 1 spray NA DAILY Qty: 3.7 0RF Rx Instructions: ALTERNATE NASAL DAILY acetaminophen 325 mg tablet 650 mg PO TID PRN (Reason: Pain) Rx Instructions: 0001, 0800, & 1200 (DME) blood-glucose meter [OneTouch Ultra2 Meter] Misc See Rx Instructions .Route Qty: 1 0RF Rx Instructions: As directed cholecalciferol (vitamin D3) [Vitamin D3] 50 mcg (2,000 unit) Capsule 50 mcg PO DAILY Referrals Referrals: Mer Jack DO [Primary Care Provider] -
[2024-09-28] MEDS ORDERED: ONDANSETRON INJ 2 MG/ML 2 ML VIAL IV PRN (02:02)
[2024-09-28] MEDS: PREGABALIN 150 MG CAP PO SCH (03:41)
[2024-09-28] MEDS: DULoxetine HCL 60 MG CAP PO SCH (03:41)
[2024-09-28] MEDS: carvediloL 6.25 MG TAB PO SCH (03:43)
[2024-09-28] MEDS: LANTUS PER UNIT CHARGE SQ STA (04:11)
[2024-09-28 05:09] LABS: Basophils # (auto) 0.01 K/uL (0.00-0.20); Basophils % (auto) 0.1 %; Eosinophils # (auto) 0.01 K/uL (0.00-0.50); Eosinophils % (auto) 0.1 %; Hematocrit (blood only) 44.3 % (37.0-47.0); Hemoglobin 15.1 g/dl (12.0-16.0); Immature Granulocytes # (auto) 0.07 K/uL (0.01-0.20); Immature Granulocytes % (auto) 0.6 %; Lymphocytes # (auto) 1.02 K/uL (1.20-3.40); Mean Corpuscular Hemoglobin 30.5 pg (25.0-34.0); Mean Corpuscular Hgb Conc 34.1 g/dL (32.0-36.0); Mean Corpuscular Volume 89.5 fL (80.0-100.0); Mean Platelet Volume 11.7 fL (9.4-12.4); Monocytes # (auto) 0.07 K/uL (0.11-0.59); Monocytes % (auto) 0.6 %; Neutrophils # (auto) 10.11 K/uL (1.40-6.50); Neutrophils % (auto) 89.6 %; Platelet Count 176 K/uL (130-400); RDW Coefficient of Variation 13.3 % (11.5-14.5); RDW Standard Deviation 43.8 fL (36.4-46.3); Red Blood Count 4.95 M/uL (4.20-5.40); White Blood Count 11.29 K/ul (4.8-10.8)
[2024-09-28 05:33] LABS: Albumin Level 3.6 gm/dl (3.4-5.0); BUN Creatinine Ratio 17.5 (10-20); Bilirubin,Total 0.8 mg/dl (0.2-1.0); Calcium 9.2 mg/dl (8.6-10.3); Creatinine Clr Calc Pharmacy 80.9 ml/min; Globulin 3.5 gm/dl (2.5-4.0); Magnesium 1.9 mg/dl (1.7-2.4); Potassium 3.8 mmol/L (3.5-5.1); Total Protein 7.1 gm/dl (6.0-8.3)
[2024-09-28] MEDS: INSULIN ASPART PER UNIT CHARGE SC STA ×2 (06:17→21:46)
[2024-09-28 09:11] LABS: A calco-baum cmplx NotReported Not Detected (NotDetected); Bact fragilis Not Reported Not Detected (NotDetected); Blood Culture Id Panel See PCR Comment (NotDetected); C auris Not Reported Not Detected (NotDetected); CTX-M Resistant Gene Not Detected (NotDetected); Calbicans Not Reported Not Detected (NotDetected); Candida glabrata Not Reported Not Detected (NotDetected); Candida krusei Not Reported Not Detected (NotDetected); Cneoformans/gatti Not Reported Not Detected (NotDetected); Cparapsilosis Not Reported Not Detected (NotDetected); E cloacae compx Not Reported Not Detected (NotDetected); Efaecalis Not Reported Not Detected (NotDetected); Efaecium Not Reported Not Detected (NotDetected); Enterobacterales Not Reported DETECTED (NotDetected); Escherichia coli Not Reported DETECTED (NotDetected); H influenzae Not Reported Not Detected (NotDetected); IMP Resistant Gene Not Detected (NotDetected); K aerogenes Not Reported Not Detected (NotDetected); KPC Resistant Gene Not Detected (NotDetected); Koxytoca Not Reported Not Detected (NotDetected); Kpneumoniae grp Not Reported Not Detected (NotDetected); Lmonocyt Not Reported Not Detected (NotDetected); N meningitidis Not Reported Not Detected (NotDetected); NDM Resistant Gene Not Detected (NotDetected); OXA 48 Like Resistant Gene Not Detected (NotDetected); P aeruginosa Not Reported Not Detected (NotDetected); Proteus spp Not Reported Not Detected (NotDetected); Salmonella spp Not Reported Not Detected (NotDetected); Staph lugdunensis Not Reported Not Detected (NotDetected); Staph spp. Not Reported Not Detected (NotDetected); Staphaureus Not Reported Not Detected (NotDetected); Staphepi Not Reported Not Detected (NotDetected); Stenmaltophilia Not Reported Not Detected (NotDetected); Strep agal(GrpB) Not Reported Not Detected (NotDetected); Strep pneum Not Reported Not Detected (NotDetected); Strep pyog (GrpA) Not Reported Not Detected (NotDetected); Strep spp Not Reported Not Detected (NotDetected); VIM Resistant Gene Not Detected (NotDetected); mcr-1 Colistin Resistant Gene Not Detected (NotDetected)
[2024-09-28 09:23] LABS: Enterobacterales DETECTED (NotDetected)
[2024-09-28] MEDS ORDERED: CIPROFLOXACIN / D5W 400 MG/200 ML BAG IV SCH (09:30)
[2024-09-28] MEDS: INSULIN ASPART PER UNIT CHARGE SC SCH (10:13)
--- NOTE | 2024-09-28 10:41 | XCELERA ---
[id number] \\[id number]
[2024-09-28] MEDS: amLODIPine BESYLATE 5 MG TAB PO SCH (10:47)
[2024-09-28] MEDS: LORATADINE 10 MG TAB PO SCH (10:49)
[2024-09-28] MEDS: VIBEGRON 75 MG TAB PO SCH (10:50)
[2024-09-28] MEDS: PANTOprazole 40 MG TAB PO SCH (10:50)
[2024-09-28] MEDS: cefTRIAXone SODIUM 2,000 MG/50 ML BAG IV SCH (10:51)
--- NOTE | 2024-09-28 16:03 | Hospitalist Progress Note ---
Date of Service September 28, 2024 Assessment & Plan (1) Acute pyelonephritis: (2) UTI (urinary tract infection): (3) Syncope and collapse: (4) Uncontrolled type 2 diabetes mellitus: (5) Dehydration: (6) Hyponatremia: (7) Abnormal LFTs (liver function tests): (8) Allergic reaction: Plan Patient is a 69-year-old female with past medical history of hypertension, GERD, type II DM on insulin, urinary incontinence, RLS, OA. patient presented after a fall at home due to lightheadedness and striking her head on the floor, diagnostic imaging negative for acute trauma however did reveal left-sided pyelonephritis and UA appears infectious. Patient is being admitted for IV antibiotics and PT/OT evals. #left pyelonephritis/UTI/leukocytosis #E coli bacteremia - UA appears infectious with positive for nitrates, 3+ leukocyte esterase, >50 WBC, >20 RBC, 3-5 hyaline, 4+ bacteria - AP CT showed heterogeneous enhancement of left kidney with perinephritic stranding concerning for acute pyelonephritis, hazy appearance of urinary bladder wall potentially cystitis - WC 16.17, trending down - low concern for sepsis, afebrile, VSS, lactate negative - ciprofloxacin changed to ceftriaxone - follow urine and blood cultures - sensitivities pending #fall/syncope - patient stated she got light headed, +HS on floor - unsure if syncopized, denies mechanical fall - most recent echo 2021, dobutamine stress - normal systolic function (EF 55- 60%), mild LVH, no significant valvular dz - holter monitor november 2023 showed frequent PCVs and one 17 beat run of supraventricular rhythm - CK, troponin, procal negative - CXR, pelvic XR, head CT, cervical spine CT, AP CT negative for acute trauma - PT/OT consulted - Aspiration and fall precautions - ECHO (09/28/24): nl LV size, hyperdynamic systolic fn, EF > 70%, no regional wall motion abnormalities - cont tele monitoring #t2dm - a1c 07/2024 7.7 - hold Ozempic - on insulin degludec 60 u HS; will reduce to glargine 40 HS with stronger diet control in hospital - glucose 250 - HS insulin ordered on admission - sliding scale - pt received 125mg IV solu-medrol in ED; anticipate short term hyperglycemia #dehydration/hyponatremia - poor po intake 09/27 - Na 134 - suspect 09/02 hypovolemia - urine specific gravity 1.032 - will give 500 mL NSS at 80 ml/hr- completed - promote oral hydration #abnormal LFTs - total bili 1.4, alk phos 144 - AP CT showed normal liver, cholecystectomy status - trend CMP #allergic reaction - questionable allergic reaction to IV contrast? - Benadryl 25mg IV and Solu-Medrol 125 Mg IV ordered in ED - Patient denies any rash, dyspnea, or other anaphylactic symptoms - Defer further steroid use Chronic stable diagnoses: urinary incontinence - continue vibegron RLS - continue pregabalin HTN - continue amlodipine and carvedilol GERD - continue PPI VTE ppx: SCDs, defer chemical ppx with recent fall Diet: t2dm Dispo: med/tele Admission and Anticipated Discharge Date Admission Date: September 27, 2024 Results & Data Results & Data Vital Signs (Past 12 Hours) Vital Signs Pulse Pulse Resp BP BP Pulse Ox O2 Del Method 09/28/24 14:57 59 L 19 128/74 96 09/28/24 13:33 58 L 17 157/67 H 95 09/28/24 12:15 65 18 159/71 H 94 09/28/24 11:36 67 15 171/73 H 94 09/28/24 10:03 78 20 144/84 H 94 09/28/24 08:03 58 L 15 130/65 94 09/28/24 07:25 57 L 09/28/24 06:43 61 26 H 126/60 94 Nasal Cannula 09/28/24 04:04 61 16 152/69 H 96 Nasal Cannula O2 Flow Rate 09/28/24 14:57 09/28/24 13:33 09/28/24 12:15 09/28/24 11:36 09/28/24 10:03 09/28/24 08:03 09/28/24 07:25 09/28/24 06:43 2 09/28/24 04:04 2 PG Care Time/CCT Total # of Minutes Spent Total Time Spent with Patient: Total time spent is greater than 50% in coordination of care (as documented) at patient's floor/unit and/or counseling patient: Coding Level of Care Code 32487 SUB INP/OBS CARE 235MIN Diagnoses Acute pyelonephritis N10 UTI (urinary tract infection) N39.0 Syncope and collapse R55 Uncontrolled type 2 diabetes mellitus with hyperglycemia E11.65 Glycemic state: with hyperglycemia Dehydration E86.0 Hyponatremia E87.1 Abnormal LFTs (liver function tests) R79.89 Allergic reaction T78.40XA (4) Uncontrolled type 2 diabetes mellitus Glycemic state: with hyperglycemia Qualified Code(s): E11.65 - Type 2 diabetes mellitus with hyperglycemia
[2024-09-28] MEDS ORDERED: LANTUS PER UNIT CHARGE SQ SCH (21:00)
[2024-09-28] MEDS: MELATONIN 3 MG TAB PO PRN (21:47)
[2024-09-28] MEDS: LANTUS PER UNIT CHARGE SQ SCH (21:47)
[2024-09-28] MEDS: ASPIRIN 81 MG ECTAB PO SCH (21:48)
--- NOTE | 2024-09-28 22:22 | Electrocardiogram Report ---
Test Reason : Blood Pressure : */* mmHG Vent. Rate : 68 BPM Atrial Rate : 68 BPM P-R Int : 168 ms QRS Dur : 88 ms QT Int : 408 ms P-R-T Axes : 10 -16 83 degrees QTcB Int : 433 ms Normal sinus rhythm with sinus arrhythmia Nonspecific ST and T wave abnormality Abnormal ECG When compared with ECG of 21-Oct-2023 15:32, Premature supraventricular complexes are no longer Present Confirmed by Domingo Mendes ([id number]) on 09/28/2024 10:22:16 PM Referred By: REFERRED SELF Confirmed By: Domingo Mendes
[2024-09-29 06:56] LABS: Basophils # (auto) 0.01 K/uL (0.00-0.20); Basophils % (auto) 0.1 %; Eosinophils # (auto) 0.01 K/uL (0.00-0.50); Eosinophils % (auto) 0.1 %; Hematocrit (blood only) 42.3 % (37.0-47.0); Hemoglobin 14.4 g/dl (12.0-16.0); Immature Granulocytes # (auto) 0.07 K/uL (0.01-0.20); Immature Granulocytes % (auto) 0.4 %; Lymphocytes % (auto) 16.8 %; Mean Corpuscular Hemoglobin 30.6 pg (25.0-34.0); Mean Corpuscular Volume 89.8 fL (80.0-100.0); Monocytes # (auto) 1.21 K/uL (0.11-0.59); Monocytes % (auto) 7.5 %; Neutrophils # (auto) 12.03 K/uL (1.40-6.50); Neutrophils % (auto) 75.1 %; Platelet Count 187 K/uL (130-400); RDW Coefficient of Variation 13.4 % (11.5-14.5); RDW Standard Deviation 44.3 fL (36.4-46.3); Red Blood Count 4.71 M/uL (4.20-5.40); White Blood Count 16.03 K/ul (4.8-10.8)
[2024-09-29 07:12] LABS: Albumin Globulin Ratio 0.9 (0.9-2); Albumin Level 3.1 gm/dl (3.4-5.0); BUN Creatinine Ratio 33.8 (10-20); Bilirubin,Total 0.4 mg/dl (0.2-1.0); Calcium 9.1 mg/dl (8.6-10.3); Creatinine Clr Calc Pharmacy 78.4 ml/min; Globulin 3.3 gm/dl (2.5-4.0); Total Protein 6.4 gm/dl (6.0-8.3)
--- NOTE | 2024-09-29 08:39 | Hospitalist Progress Note ---
Date of Service September 29, 2024 Assessment & Plan (1) Acute pyelonephritis: (2) UTI (urinary tract infection): (3) Syncope and collapse: (4) Uncontrolled type 2 diabetes mellitus: (5) Dehydration: (6) Hyponatremia: (7) Abnormal LFTs (liver function tests): (8) Allergic reaction: Plan Patient is a 69-year-old female with past medical history of hypertension, GERD, type II DM on insulin, urinary incontinence, RLS, OA. patient presented after a fall at home due to lightheadedness and striking her head on the floor, diagnostic imaging negative for acute trauma however did reveal left-sided pyelonephritis and UA appears infectious. Patient is being admitted for IV antibiotics and PT/OT evals. #left pyelonephritis #Ecoli UTI #GNR bacteremia - UA is positive, UCx growing kearns-sens E coli - BCx (09/27): GNR - AP CT showed heterogeneous enhancement of left kidney with perinephritic stranding concerning for acute pyelonephritis, hazy appearance of urinary bladder wall potentially cystitis - WBC: 16 > 11 > 16 , trend at this time - initially on Cipro, switched to CTX on 09/28 #fall/syncope - patient stated she got light headed, +HS on floor - unsure if syncopized, denies mechanical fall - most recent echo 2021, dobutamine stress - normal systolic function (EF 55- 60%), mild LVH, no significant valvular dz - holter monitor november 2023 showed frequent PCVs and one 17 beat run of supraventricular rhythm - CK, troponin, procal negative - CXR, pelvic XR, head CT, cervical spine CT, AP CT negative for acute trauma - PT/OT : recs rehab - Aspiration and fall precautions - cont tele - ECHO (09/28): nl LV size with hyperdynamic SF, with EF > 70%, no regional wall motion abnormalities, mod concentric LV hypertrophy, mild LA dilation, mild MR #t2dm - a1c 07/2024 7.7 - DM 2 diet - hold Ozempic - was given 125mg IV solu-medrol in ED; anticipate short term hyperglycemia - on insulin degludec 60 u HS; will reduce to glargine 40 HS with stronger diet control in hospital - glucose 250 - HS insulin ordered on admission - cont SSI #dehydration/hyponatremia - poor po intake 09/27 - Na wnl now, s/p IVF, cont PO intake #Hypoxia - wean oxygen - pt used to utilize CPAP machine, but had to return due to insurance - she will need repeat polysomnography as outpatient #abnormal LFTs - total bili 1.4, alk phos 144 - AP CT showed normal liver, cholecystectomy status - trend CMP #allergic reaction - questionable allergic reaction to IV contrast? - Benadryl 25mg IV and Solu-Medrol 125 Mg IV ordered in ED - Patient denies any rash, dyspnea, or other anaphylactic symptoms - no indication for further steroid use Chronic stable diagnoses: urinary incontinence - continue vibegron RLS - continue pregabalin HTN - continue amlodipine and carvedilol GERD - continue PPI VTE ppx: SCDs, hep subq Dispo: PT / OT recs rehab, pt not medically ready given rise in WBC Admission and Anticipated Discharge Date Admission Date: September 27, 2024 Subjective No acute events overnight Currently states her symptoms are improving Review of Systems Review of Systems: Comprehensive ROS neg Physical Exam Physical Exam: Gen: no acute distress HEENT: NC/AT, MMM Lungs: CTAB CVS: s1s2nl, RRR Abd: nl bowel sounds, soft, NT : no left CVA tenderness Ext: no edema Results & Data Results & Data Vital Signs (Past 12 Hours) Vital Signs Temp Pulse Pulse Pulse Resp BP Pulse Ox 09/29/24 08:03 09/29/24 07:47 36.4 C L 50 L 18 105/71 98 09/29/24 03:37 36.4 C L 54 L 16 130/69 98 09/28/24 22:05 56 L 09/28/24 22:04 36.5 C 59 L 18 134/76 97 09/28/24 20:40 63 O2 Del Method O2 Flow Rate 09/29/24 08:03 Nasal Cannula 1.5 09/29/24 07:47 Nasal Cannula 1 09/29/24 03:37 Nasal Cannula 1.5 09/28/24 22:05 09/28/24 22:04 Nasal Cannula 1 09/28/24 20:40 PG Care Time/CCT Total # of Minutes Spent Total Time Spent with Patient: Total time spent is greater than 50% in coordination of care (as documented) at patient's floor/unit and/or counseling patient: Coding Level of Care Code 13683 SUB INP/OBS CARE MIN Diagnoses Acute pyelonephritis N10 UTI (urinary tract infection) N39.0 Syncope and collapse R55 Uncontrolled type 2 diabetes mellitus with hyperglycemia E11.65 Glycemic state: with hyperglycemia Dehydration E86.0 Hyponatremia E87.1 Abnormal LFTs (liver function tests) R79.89 Allergic reaction T78.40XA (4) Uncontrolled type 2 diabetes mellitus Glycemic state: with hyperglycemia Qualified Code(s): E11.65 - Type 2 diabetes mellitus with hyperglycemia
[2024-09-29] MEDS: HEPARIN SOD 5,000 UNIT/0.5 ML VIAL SQ SCH (09:25)
[2024-09-30 05:59] LABS: Hematocrit (blood only) 41.3 % (37.0-47.0); Hemoglobin 13.8 g/dl (12.0-16.0); Mean Corpuscular Hemoglobin 30.1 pg (25.0-34.0); Mean Corpuscular Hgb Conc 33.4 g/dL (32.0-36.0); Mean Platelet Volume 11.4 fL (9.4-12.4); Platelet Count 174 K/uL (130-400); RDW Coefficient of Variation 13.5 % (11.5-14.5); RDW Standard Deviation 44.1 fL (36.4-46.3); Red Blood Count 4.59 M/uL (4.20-5.40); White Blood Count 8.06 K/ul (4.8-10.8)
[2024-09-30 06:08] LABS: BUN Creatinine Ratio 35.9 (10-20); Calcium 8.7 mg/dl (8.6-10.3); Creatinine Clr Calc Pharmacy 90.7 ml/min; Magnesium 1.8 mg/dl (1.7-2.4); Phosphorus 4.4 mg/dl (2.5-4.9); Potassium 3.9 mmol/L (3.5-5.1)
--- NOTE | 2024-09-30 07:54 | Hospitalist Progress Note ---
Date of Service September 30, 2024 Assessment & Plan (1) Acute pyelonephritis: (2) UTI (urinary tract infection): (3) Syncope and collapse: (4) Uncontrolled type 2 diabetes mellitus: (5) Dehydration: (6) Hyponatremia: (7) Abnormal LFTs (liver function tests): (8) Allergic reaction: Plan Patient is a 69-year-old female with past medical history of hypertension, GERD, type II DM on insulin, urinary incontinence, RLS, OA. patient presented after a fall at home due to lightheadedness and striking her head on the floor, diagnostic imaging negative for acute trauma however did reveal left-sided pyelonephritis and UA appears infectious. Patient is being admitted for IV antibiotics and PT/OT evals. #left pyelonephritis #Ecoli UTI #Ecoli bacteremia - UA is positive, UCx growing kearns-sens E coli - BCx (09/27): growing kearns-sens E coli - AP CT showed heterogeneous enhancement of left kidney with perinephritic stranding concerning for acute pyelonephritis, hazy appearance of urinary bladder wall potentially cystitis - WBC: 16 > 11 > 16 > 8 - s/p 1 dose of Cipro, switched to CTX on 09/28, 14 day treatment, last dose 10/12/24 #fall/syncope - patient stated she got light headed, +HS on floor - unsure if syncopized, denies mechanical fall - most recent echo 2021, dobutamine stress - normal systolic function (EF 55- 60%), mild LVH, no significant valvular dz - holter monitor november 2023 showed frequent PCVs and one 17 beat run of supraventricular rhythm - CK, troponin, procal negative - CXR, pelvic XR, head CT, cervical spine CT, AP CT negative for acute trauma - PT/OT : recs rehab - Aspiration and fall precautions - cont tele - ECHO (09/28): nl LV size with hyperdynamic SF, with EF > 70%, no regional wall motion abnormalities, mod concentric LV hypertrophy, mild LA dilation, mild MR #t2dm - a1c 07/2024 7.7 - DM 2 diet - hold Ozempic - was given 125mg IV solu-medrol in ED; short-term hyperglycemia has resolved - on insulin degludec 60 u HS; will reduce to glargine 40 HS with stronger diet control in hospital - cont SSI #dehydration/hyponatremia - poor po intake 09/27 - Na wnl now, s/p IVF, cont PO intake #Hypoxia - wean oxygen - pt used to utilize CPAP machine, but had to return due to insurance - she will need repeat polysomnography as outpatient #abnormal LFTs - total bili 1.4, alk phos 144 - AP CT showed normal liver, cholecystectomy status - trend CMP #allergic reaction - questionable allergic reaction to IV contrast? - Benadryl 25mg IV and Solu-Medrol 125 Mg IV ordered in ED - Patient denies any rash, dyspnea, or other anaphylactic symptoms - no indication for further steroid use Chronic stable diagnoses: urinary incontinence - continue vibegron RLS - continue pregabalin HTN - continue amlodipine and carvedilol GERD - continue PPI VTE ppx: SCDs, hep subq Dispo: PT / OT recs rehab, pt medically ready , CM on board Admission and Anticipated Discharge Date Admission Date: September 27, 2024 Subjective No acute events overnight Currently no new complaints Review of Systems Review of Systems: Comprehensive ROS neg Physical Exam Physical Exam: Gen: no acute distress, sitting in chair comfortable HEENT: NC/AT, MMM Lungs: CTAB CVS: s1s2nl, RRR Abd: nl bowel sounds, soft, NT : no left CVA tenderness Ext: no edema Results & Data Results & Data Vital Signs (Past 12 Hours) Vital Signs Temp Pulse Pulse Resp BP Pulse Ox O2 Del Method 09/30/24 07:32 36.8 C 49 L 16 139/73 96 Nasal Cannula 09/30/24 07:31 Nasal Cannula 09/30/24 06:53 52 L 09/30/24 03:09 36.6 C 49 L 16 120/64 97 Nasal Cannula 09/29/24 22:52 36.4 C L 49 L 16 116/53 L 98 Nasal Cannula 09/29/24 22:45 49 L 09/29/24 21:00 Nasal Cannula O2 Flow Rate 09/30/24 07:32 1 09/30/24 07:31 1.5 09/30/24 06:53 09/30/24 03:09 1 09/29/24 22:52 1 09/29/24 22:45 09/29/24 21:00 1.5 PG Care Time/CCT Total # of Minutes Spent Total Time Spent with Patient: Total time spent is greater than 50% in coordination of care (as documented) at patient's floor/unit and/or counseling patient: Coding Level of Care Code 74134 SUB INP/OBS CARE 235MIN Diagnoses Acute pyelonephritis N10 UTI (urinary tract infection) N39.0 Syncope and collapse R55 Uncontrolled type 2 diabetes mellitus with hyperglycemia E11.65 Glycemic state: with hyperglycemia Dehydration E86.0 Hyponatremia E87.1 Abnormal LFTs (liver function tests) R79.89 Allergic reaction T78.40XA (4) Uncontrolled type 2 diabetes mellitus Glycemic state: with hyperglycemia Qualified Code(s): E11.65 - Type 2 diabetes mellitus with hyperglycemia
[2024-10-01] MEDS: ACETAMINOPHEN 325 MG TAB PO PRN (07:55)
[2024-10-01] MEDS: DOCUSATE SODIUM 100 MG CAP PO PRN (07:56)
--- NOTE | 2024-10-01 09:49 | Hospitalist Progress Note ---
Date of Service October 01, 2024 Assessment & Plan (1) Acute pyelonephritis: (2) UTI (urinary tract infection): (3) Syncope and collapse: (4) Uncontrolled type 2 diabetes mellitus: (5) Dehydration: (6) Hyponatremia: (7) Abnormal LFTs (liver function tests): (8) Allergic reaction: Plan Patient is a 69-year-old female with past medical history of hypertension, GERD, type II DM on insulin, urinary incontinence, RLS, OA. patient presented after a fall at home due to lightheadedness and striking her head on the floor, diagnostic imaging negative for acute trauma however did reveal left-sided pyelonephritis and UA appears infectious. Patient is being admitted for IV antibiotics and PT/OT evals. #left pyelonephritis #Ecoli UTI #Ecoli bacteremia - UA is positive, UCx growing kearns-sens E coli - BCx (09/27): growing kearns-sens E coli - AP CT showed heterogeneous enhancement of left kidney with perinephritic stranding concerning for acute pyelonephritis, hazy appearance of urinary bladder wall potentially cystitis - WBC: 16 > 11 > 16 > 8 - s/p 1 dose of Cipro, switched to CTX on 09/28, 14 day treatment, last dose 10/12/24 #fall/syncope - patient stated she got light headed, +HS on floor - unsure if syncopized, denies mechanical fall - most recent echo 2021, dobutamine stress - normal systolic function (EF 55- 60%), mild LVH, no significant valvular dz - holter monitor november 2023 showed frequent PCVs and one 17 beat run of supraventricular rhythm - ECHO (09/28): nl LV size with hyperdynamic SF, with EF > 70%, no regional wall motion abnormalities, mod concentric LV hypertrophy, mild LA dilation, mild MR - CK, troponin, procal negative - CXR, pelvic XR, head CT, cervical spine CT, AP CT negative for acute trauma - PT/OT : recs rehab - Aspiration and fall precautions - cont tele #t2dm - a1c 07/2024 7.7 - DM 2 diet - hold Ozempic - was given 125mg IV solu-medrol in ED; short-term hyperglycemia has resolved - on insulin degludec 60 u HS; will reduce to glargine 40 HS with stronger diet control in hospital - cont SSI #dehydration/hyponatremia - poor po intake 09/27 - Na wnl now, s/p IVF, cont PO intake #Hypoxia - resolved - weaned supplemental oxygen to RA - pt used to utilize CPAP machine, but had to return due to insurance - she will need repeat polysomnography as outpatient #abnormal LFTs - total bili 1.4, alk phos 144 - AP CT showed normal liver, cholecystectomy status - trend CMP #allergic reaction - questionable allergic reaction to IV contrast? - Benadryl 25mg IV and Solu-Medrol 125 Mg IV ordered in ED - Patient denies any rash, dyspnea, or other anaphylactic symptoms - no indication for further steroid use #Dependent pedal edema - improves when pt has her feet up - stable, monitor at this time Chronic stable diagnoses: urinary incontinence - continue vibegron RLS - continue pregabalin HTN - continue amlodipine and carvedilol GERD - continue PPI VTE ppx: SCDs, hep subq Dispo: PT / OT recs rehab, pt medically ready , CM on board Admission and Anticipated Discharge Date Admission Date: September 27, 2024 Subjective No acute events overnight Currently no new complaints Review of Systems Review of Systems: Comprehensive ROS neg Physical Exam Physical Exam: Gen: no acute distress, sitting in chair comfortable HEENT: NC/AT, MMM Lungs: CTAB CVS: s1s2nl, RRR Abd: nl bowel sounds, soft, NT : no left CVA tenderness Ext: dependent pedal edema (stable) Results & Data Results & Data Vital Signs (Past 12 Hours) Vital Signs Temp Pulse Pulse Resp BP BP Pulse Ox 10/01/24 08:05 10/01/24 07:27 36.5 C 52 L 16 138/61 94 10/01/24 07:12 51 L 10/01/24 03:00 36.5 C 52 L 16 118/61 91 09/30/24 23:17 36.3 C L 53 L 18 148/74 H 94 O2 Del Method 10/01/24 08:05 Room Air 10/01/24 07:27 Room Air 10/01/24 07:12 10/01/24 03:00 Room Air 09/30/24 23:17 Room Air PG Care Time/CCT Total # of Minutes Spent Total Time Spent with Patient: Total time spent is greater than 50% in coordination of care (as documented) at patient's floor/unit and/or counseling patient: Coding Level of Care Code 48023 SUB INP/OBS CARE Diagnoses Acute pyelonephritis N10 UTI (urinary tract infection) N39.0 Syncope and collapse R55 Uncontrolled type 2 diabetes mellitus with hyperglycemia E11.65 Glycemic state: with hyperglycemia Dehydration E86.0 Hyponatremia E87.1 Abnormal LFTs (liver function tests) R79.89 Allergic reaction T78.40XA (4) Uncontrolled type 2 diabetes mellitus Glycemic state: with hyperglycemia Qualified Code(s): E11.65 - Type 2 diabetes mellitus with hyperglycemia
[2024-10-01] MEDS: carvediloL 3.125 MG TAB PO SCH (16:49)
[2024-10-02 06:04] LABS: Hematocrit (blood only) 42.8 % (37.0-47.0); Hemoglobin 14.1 g/dl (12.0-16.0); Mean Corpuscular Hemoglobin 29.7 pg (25.0-34.0); Mean Corpuscular Hgb Conc 32.9 g/dL (32.0-36.0); Mean Corpuscular Volume 90.1 fL (80.0-100.0); Mean Platelet Volume 11.2 fL (9.4-12.4); Platelet Count 200 K/uL (130-400); RDW Coefficient of Variation 13.4 % (11.5-14.5); Red Blood Count 4.75 M/uL (4.20-5.40); White Blood Count 8.52 K/ul (4.8-10.8)
[2024-10-02 06:21] LABS: BUN Creatinine Ratio 18.8 (10-20); Calcium 9.2 mg/dl (8.6-10.3); Creatinine Clr Calc Pharmacy 84.4 ml/min; Magnesium 2.1 mg/dl (1.7-2.4); Phosphorus 4.1 mg/dl (2.5-4.9); Potassium 3.9 mmol/L (3.5-5.1)
--- NOTE | 2024-10-02 15:25 | Discharge Summary ---
Discharge Summary Date of Service October 02, 2024 Principal Dx & Hospital Course #1 = Principal Diagnosis (1) Acute pyelonephritis: (2) UTI (urinary tract infection): (3) Syncope and collapse: (4) Uncontrolled type 2 diabetes mellitus: (5) Dehydration: (6) Hyponatremia: (7) Abnormal LFTs (liver function tests): (8) Allergic reaction: Plan 69 years old female with past medical history of FULL CODE @ home, morbid obesity with BMI 51.7 (height 127.6 cm; weight 112.1 kg), hypertension, GERD, RLS, osteoporosis on calcitonin nasal spray, 200 units/spray, 1 spray to each nostril daily, type II DM with HbA1c 7.7% (07/18/2024, 1:51pm) on degludec insulin 60units SQ qhs, and urinary incontinence on vibegron, a beta 3 adrenergic agonist that relaxes the beta detrusor muscle to increase bladder capacity, thereby inducing urinary retention, who presented to [facility] ER on 09/27/2024 with complaints of lightheadedness and striking her head on the floor, diagnostic imaging negative for acute trauma while 09/27/2024, 8:00pm CT abd/pelvis with IV contrast revealed acute left- sided pyelonephritis. Patient was subsequently admitted to the inpatient hospitalist service @ [facility] on 09/27/2024 with the following diagnosis: Acute kearns-sensitive E. coli-associated left pyelonephritis with kearns-sensitive E. coli bacteremia. The following medical issues were addressed while the patient remained in [facility] from 09/27/2024 through 10/02/2024: #acute left pyelonephritis #kearns-sensitive E coli UTI #kearns-sensitive E coli bacteremia - UCx (09/27): growing kearns-sens E coli - BCx (09/27): growing kearns-sens E coli - AP CT showed heterogeneous enhancement of left kidney with perinephritic stranding concerning for acute pyelonephritis, hazy appearance of urinary bladder wall potentially cystitis - WBC: 16 > 11 > 16 > 8 - s/p 1 dose of ciprofloxacin, switched to ceftriaxone 2g IV daily on 09/28/2024, 14 day treatment, last dose 10/12/2024 #fall/syncope - patient stated she got light headed, +HS on floor - unsure if patient had syncope as denies mechanical fall; I surmise that patient got lightheaded due to acute left pyelonephritis, due to acute kearns- sensitive E. coli UTI with hematogenous dissemination. Taken one step further, I surmise that acute kearns-sensitive E. coli UTI was due to patient's home- scheduled vibegron, which promotes urinary retention via beta 3 adrenergic agonistic activity on the bladder detrusor muscle, causing it to relax and thereby increase bladder capacity for urine. Hence, I discontinued vibegron 75mg PO qam on 10/02/2024, 3:30pm; prior to this date/time, patient actually received this medicatio while in [facility] from 09/28/2024, 10:50am through 10/02/2024, 9:12am. - most recent echo 2021, dobutamine stress - normal systolic function (EF 55- 60%), mild LVH, no significant valvular dz - holter monitor november 2023 showed frequent PCVs and one 17 beat run of supraventricular rhythm - ECHO (09/28): nl LV size with hyperdynamic SF, with EF > 70%, no regional wall motion abnormalities, mod concentric LV hypertrophy, mild LA dilation, mild MR - CK, troponin, procal negative - CXR, pelvic XR, head CT, cervical spine CT, AP CT negative for acute trauma - PT/OT : recommend rehab; patient was subsequently discharged to [facility] on 10/02/2024, and will follow with her PCP Dr. Mer Jack within 7 days of hospital discharge. - Aspiration and fall precautions - cont tele #t2dm - a1c 07/2024 7.7 - DM 2 diet - hold Ozempic - was given 125mg IV solu-medrol in ED; short-term hyperglycemia has resolved - on insulin degludec 60 units SQ qhs at home; patient subsequently received lantus 45 units SQ qhs while in [facility]; patient has subsequently demonstrated well-controlled levels of glucose 120mg/dL (10/02/2024, 5:36am), glucose 112 mg/dL (10/02/2024, 7:53am), glucose 137 mg/dL (10/02/2024, 11:53am) while in [facility]; consequently, patient was discharged to [facility] on 10/02/2024 with lantus 45 units SQ qhs. - cont SSI #dehydration/hyponatremia - poor po intake 09/27 - Na wnl now, s/p IVF, cont PO intake #Hypoxia - resolved - weaned supplemental oxygen to RA - pt used to utilize CPAP machine, but had to return due to insurance - she will need repeat polysomnography as outpatient #abnormal LFTs - total bili 1.4, alk phos 144 - AP CT showed normal liver, cholecystectomy status #allergic reaction - questionable allergic reaction to IV contrast? - Benadryl 25mg IV and Solu-Medrol 125 Mg IV ordered in ED - Patient denies any rash, dyspnea, or other anaphylactic symptoms - no indication for further steroid use #Dependent pedal edema - improves when pt has her feet up - stable, monitor at this time Chronic stable diagnoses: urinary incontinence - continue vibegron RLS - continue pregabalin HTN - continue amlodipine and carvedilol GERD - continue PPI VTE ppx: SCDs, hep subq Dispo: PT / OT recs rehab, pt medically ready , CM on board Discharge time, 35 minutes. Of this time period, 18 minutes were spent in coordinating patient's discharge. Admission HPI Per Admitting Provider Patient is a 69-year-old female with past medical history of hypertension, GERD, type II DM on insulin, urinary incontinence, RLS, OA. patient presented after a fall at home due to lightheadedness and striking her head on the floor, diagnostic imaging negative for acute trauma however did reveal left-sided pyelonephritis and UA appears infectious. Patient is being admitted for IV antibiotics and PT/OT evals. Patient seen at bedside. She stated that today she got lightheaded and fell hitting her head on the floor, she is not on any blood thinners. She stated she is unsure if she lost consciousness, she may have. She stated she just got lightheaded, denies dizziness/the room spinning, denies chest pain or shortness of breath prior to the fall. She stated she did not trip over anything. she denies any current lightheadedness, headache, or pain. On diagnostic imaging for trauma, patient was found to have left-sided pyelonephritis and cystitis, UA also suspicious for infection. Patient stated she has had left-sided back pain for multiple days and felt feverish, afebrile on admission. She also endorses urinary symptoms of burning with urination today. She does have a history of u rinary incontinence and wears depends. She also endorses rhinorrhea and cough for several days. Patient denies headache, current dizziness, current lightheadedness, dyspnea, dyspnea on exertion, chest pain, abdominal pain. Regarding receiving Benadryl and Solu-Medrol in ED, patient denies having allergic reaction. She has no history of allergy to IV contrast and denies any dyspnea, itchiness, sore throat after receiving IV contrast. She denies history of tobacco use or alcohol use. She stated she does have a history of diabetes and uses insulin 60 units at bedtime, she has not had any h ome medications today including insulin. Will order on admission. She wishes to be full code. She does not use oxygen at baseline. Patient is agreeable to PT/OT evals. Discharge Exam Constitutional General: Comfortable, coherent, cooperative. Wide awake and alert. Not confused, lethargic, or obtunded. Patient speaks in complete, fluent, and articulate sentences without pause, interruption, cough, or wheeze. HEENT: Normocephalic, atraumatic. Pupils equally round and reactive to light. Extra-ocular muscles intact. No nystagmus, gaze paresis, anisocoria, miosis, mydriasis, hyphema, scleral injection, conjunctivitis, or pterygium. No rhinorrhea or otorrhea. No pharyngeal discharge or erythema. Neck: Supple, no stridor, bruit, goiter, hepatojugular reflux. Jugular venous pressure is estimated to be 8 cm above the sternal angle of [place], which is estimated to be 5 cm above the level of the right atrium. Lymph: No anterior/posterior cervical, supraclavicular/infraclavicular, axillary, epitrochlear, or inguinal adenopathy. Chest: Symmetric rise and fall with respirations. Lungs: Clear to auscultation and percussion. No audible expiratory wheeze, egophony, pectoriloquy, increase in tactile fremitus, or flatness/dullness to percussion at the bases. Heart: RRR, S1 and S2 noted. No S3 or S4 summation gallop noted. No tripartite friction rub. Grade II/ early systolic murmur @ LLSB without radiation to the carotids, axilla, or back, and which remains invariant in regards to the respiratory cycle. Abdomen: Soft, non-tender, non-distended. No rebound, guarding, Johnson's sign, or organomegaly. Bowel sounds sounds auscultated in all 4 quadrants. Extremities: No clubbing, cyanosis, or edema. 2+ pedal pulses bilaterally. Skin: No decubitus ulcer, exanthem, or enanthem. Neurology: Alert and oriented to person, place, time, and situation. DTR+ and symmetric. 5/5 motor strength in all 4 extremities, both proximally and distally. No pronator drift. No facial droop. Urology: No be catheter. No urethral discharge. Psychiatry: No suicidal ideation. No homicidal ideation. Discharge Plan Discharge Items Patient Disposition: Transfer [facility] Reason For Visit: PYELONEPHRITIS, FALL Discharge Diagnosis: Acute pyelonephritis Activity: Resume your previous activity Non-emergency contact: Primary Care Provider Call non-emergency contact if: you have any medication questions Follow-up/Referrals: Mer Jack, [Primary Care Provider] - Diet: Carb Consistent or DM2, Heart Healthy, Low Fat and Low Sodium (2gm) Addtl Attending Provider Instructions: See your PCP Dr. Mer Jack within 7 days of hospital discharge Pending Studies at Discharge: No Stand-Alone Forms: My [facility] Skilled Items Patient informed of condition?: Yes DNR: No Discharge Level of Care: Skilled Communicable Disease: No Discharge Prognosis: Stable Lines: None Urinary Catheter: No Medications and DC Order Prescriptions: New insulin glargine [Lantus U-100 Insulin] 100 unit/mL Solution 45 unit subcut HS Qty: 15 0RF Continued (DME) OneTouch Ultra Blue Test Strip Strip See Dose Instructions .ROUTE .MEDSUPPLY Qty: 400 3RF Rx Instructions: test 4 times daily (DME) Wheeled Walker [facility] See Rx Instructions .Route Qty: 1 0RF Rx Instructions: As directed (DME) Scooter [facility] See Rx Instructions .Route Qty: 1 0RF Rx Instructions: Motorized Scooter (DME) pen needle, diabetic [BD Ultra-Fine Araceli Pen Needle] 32 gauge x 5/32" needle See Dose Instructions .ROUTE .MEDSUPPLY Qty: 200 3RF Rx Instructions: use 2 needles daily (DME) blood-glucose meter [OneTouch Ultra2 Meter] Mis See Rx Instructions .ROUTE .MEDSUPPLY Qty: 1 0RF Rx Instructions: Test blood sugars 4 times a day (DME) lancets Misc See Dose Instructions .ROUTE .MEDSUPPLY Qty: 400 3RF Dose Instruction: As directed Rx Instructions: Testing 4 times daily Premarin 0.625 mg/gram cream 1 applic vaginal 2XWK 30 Days Qty: 30 3RF Rx Instructions: TUESDAY & TUESDAY carvedilol 6.25 mg tablet 6.25 mg PO BID Qty: 90 2RF Rx Instructions: HOLD FOR SPB <110, OR HR < 60 duloxetine 60 mg capsule,delayed release(DR/EC) 60 mg PO BID Qty: 60 5RF pregabalin 150 mg capsule 150 mg PO BID Qty: 60 5RF omeprazole 40 mg capsule,delayed release(DR/EC) 40 mg PO QAM Qty: 90 2RF Rx Instructions: TAKE ONE CAPSULE BY MOUTH EVERY DAY amlodipine [Norvasc] 5 mg tablet 5 mg PO QAM Qty: 90 1RF omega 5-pdm-xll-fish oil [Fish Oil] 1,000 (120-180) mg capsule 1 cap PO HS Qty: 90 2RF nystatin-triamcinolone 100,000-0.1 unit/g-% cream 1 applic topical BID Qty: 30 4RF (DME) Day and Night Brief, Large Misc See Rx Instructions .Route Qty: 120 5RF Rx Instructions: As directed loratadine [Claritin] 10 mg tablet 10 mg PO DAILY Qty: 90 1RF semaglutide 1 mg/dose (4 mg/3 mL) pen injector 1 mg subcut WK 90 Days Qty: 9 1RF Rx Instructions: TUESDAYS aspirin 81 mg Tablet,Delayed Release (Dr/Ec) 81 mg PO HS calcitonin (salmon) 200 unit/actuation [place],Non-Aerosol 1 spray NA DAILY Qty: 3.7 0RF Rx Instructions: ALTERNATE NASAL DAILY acetaminophen 325 mg tablet 650 mg PO TID PRN (Reason: Pain) Rx Instructions: 0001, 0800, & 1200 (DME) blood-glucose meter [OneTouch Ultra2 Meter] Misc See Rx Instructions .Route Qty: 1 0RF Rx Instructions: As directed cholecalciferol (vitamin D3) [Vitamin D3] 50 mcg (2,000 unit) Capsule 50 mcg PO DAILY Discontinued Gemtesa 75 mg tablet 75 mg PO DAILY Qty: 30 2RF insulin degludec [Tresiba FlexTouch U-100] 100 unit/mL (3 mL) insulin pen 60 unit SUBCUT HS Qty: 30 4RF Discharge Orders: Discharge Order (Routine); Ordered 10/02/24 Ordered By: Mohit Hdz Admission Data Admit Date/Time: 09/27/24 23:28 Attending Provider: Mohit Hdz Admit Provider: Sravanthi [place] Primary Care Provider: Mer Jack Other Providers: Real Salazar; Seth Hines Hospital Stay Data Consultations 09/27/24 21:41 ED Decision to Admit Stat Diagnostic Imagining Performed 09/27/24 20:00 CT abd pelvis IV con only Stat CT cervical spine wo con Stat CT head/brain wo con Stat Pending Results Patient Have Any Pending Studies at Discharge: No Discharge Instructions Given to Patient (Per Discharging Provider) See your PCP Dr. Mer Jack within 7 days of hospital discharge Total Time Total Time Spent Total Time Spent (In Minutes): 35 Coding Level of Care Code 10658 INP/OBS DISCH >30 MIN Diagnoses Acute pyelonephritis N10 UTI (urinary tract infection) N39.0 Syncope and collapse R55 Uncontrolled type 2 diabetes mellitus with hyperglycemia E11.65 Glycemic state: with hyperglycemia Dehydration E86.0 Hyponatremia E87.1 Abnormal LFTs (liver function tests) R79.89 Allergic reaction T78.40XA
[2024-10-03 07:34] VITALS: RESP 16; TEMP 98.1; O2SAT 94
--- NOTE | 2024-10-03 10:40 | Discharge Summary ---
Discharge Summary Date of Service October 03, 2024 Principal Dx & Hospital Course #1 = Principal Diagnosis (1) Acute pyelonephritis: (2) UTI (urinary tract infection): (3) Syncope and collapse: (4) Uncontrolled type 2 diabetes mellitus: (5) Dehydration: (6) Hyponatremia: (7) Abnormal LFTs (liver function tests): (8) Allergic reaction: Plan 69 years old female with past medical history of FULL CODE @ home, morbid obesity with BMI 51.7 (height 127.6 cm; weight 112.1 kg), hypertension, GERD, RLS, osteoporosis on calcitonin nasal spray, 200 units/spray, 1 spray to each nostril daily, type II DM with HbA1c 7.7% (07/18/2024, 1:51pm) on degludec insulin 60units SQ qhs, and urinary incontinence on vibegron, a beta 3 adrenergic agonist that relaxes the beta detrusor muscle to increase bladder capacity, thereby inducing urinary retention, who presented to [facility] on 09/27/2024 with complaints of lightheadedness and striking her head on the floor, diagnostic imaging negative for acute trauma while 09/27/2024, 8:00pm CT abd/pelvis with IV contrast revealed acute left- sided pyelonephritis. Patient was subsequently admitted to the inpatient hospitalist service @ [facility] on 09/27/2024 with the following diagnosis: Acute kearns-sensitive E. coli-associated left pyelonephritis with kearns-sensitive E. coli bacteremia. The following medical issues were addressed while the patient remained in [facility] from 09/27/2024 through 10/02/2024: #acute left pyelonephritis #kearns-sensitive E coli UTI #kearns-sensitive E coli bacteremia - UCx (09/27): growing kearns-sens E coli - BCx (09/27): growing kearns-sens E coli - AP CT showed heterogeneous enhancement of left kidney with perinephritic stranding concerning for acute pyelonephritis, hazy appearance of urinary bladder wall potentially cystitis - WBC: 16 > 11 > 16 > 8 - s/p 1 dose of ciprofloxacin, switched to ceftriaxone 2g IV daily on 09/28/2024, 14 day treatment course, last dose will occur on 10/12/2024 #fall/syncope - patient stated she got light headed, +HS on floor - unsure if patient had syncope as denies mechanical fall; I surmise that patient got lightheaded due to acute left pyelonephritis, which in turn, was due to acute kearns-sensitive E. coli UTI with hematogenous dissemination. Taken one step further, I surmise that acute kearns-sensitive E. coli UTI was due to patient's home-scheduled vibegron, which promotes urinary retention via beta 3 adrenergic agonistic activity on the bladder detrusor muscle, causing it to relax and thereby increase bladder capacity for urine. Hence, I discontinued vibegron 75mg PO qam on 10/02/2024, 3:30pm; prior to this date/time, patient actually received this medication while in [facility] from 09/28/2024, 10:50am through 10/02/2024, 9:12am. - most recent echo 2021, dobutamine stress - normal systolic function (EF 55- 60%), mild LVH, no significant valvular dz - holter monitor november 2023 showed frequent PCVs and one 17 beat run of supraventricular rhythm - ECHO (09/28): nl LV size with hyperdynamic SF, with EF > 70%, no regional wall motion abnormalities, mod concentric LV hypertrophy, mild LA dilation, mild MR - CK, troponin, procal negative - CXR, pelvic XR, head CT, cervical spine CT, AP CT negative for acute trauma - PT/OT : recommend rehab; patient was subsequently discharged to [facility] on 10/03/2024, and will follow with her PCP Dr. Mer Jack within 7 days of hospital discharge. - Aspiration and fall precautions - cont tele #t2dm - a1c 07/2024 7.7 - DM 2 diet - hold Ozempic - was given 125mg IV solu-medrol in ED; short-term hyperglycemia RESOLVED with lantus 45 units SQ qhs and aspart insulin sliding scale qac + qhs - on insulin degludec 60 units SQ qhs at home; patient subsequently received lantus 45 units SQ qhs while in [facility]; patient has subsequently demonstrated well-controlled levels of glucose 120mg/dL (10/02/2024, 5:36am), glucose 112 mg/dL (10/02/2024, 7:53am), glucose 137 mg/dL (10/02/2024, 11:53am), and discharge glucose 122 mg/dL (10/03/2024, 8:01am) while in [facility]; consequently, patient was discharged to [facility] on 10/03/2024 with lantus 45 units SQ qhs. To this end, patient' [id number] ([address], [address], [place] [address]) received an electronic prescription for lantus 45 units SQ qhs, 100 units/mL concentration, #15 mL, no refills, on 10/03/2024, prior to patient's discharge to [facility] on 10/03/2024. #dehydration/hyponatremia - poor po intake 09/27 - Na wnl now, s/p IVF, cont PO intake #Hypoxia - resolved - weaned supplemental oxygen to RA - pt used to utilize CPAP machine, but had to return due to insurance - she will need repeat polysomnography as outpatient #abnormal LFTs - total bili 1.4, alk phos 144 - AP CT showed normal liver, cholecystectomy status #allergic reaction - questionable allergic reaction to IV contrast? - Benadryl 25mg IV and Solu-Medrol 125 Mg IV ordered in ED - Patient denies any rash, dyspnea, or other anaphylactic symptoms - no indication for further steroid use #Dependent pedal edema - improves when pt has her feet up - stable, monitor at this time Chronic stable diagnoses: urinary incontinence - continue vibegron RLS - continue pregabalin HTN - continue amlodipine and carvedilol GERD - continue PPI VTE ppx: SCDs, hep subq Dispo: PT / OT recs rehab, pt medically ready , CM on board Discharge time, 35 minutes. Of this time period, 18 minutes were spent in coordinating patient's discharge. Admission HPI Per Admitting Provider Patient is a 69-year-old female with past medical history of hypertension, GERD, type II DM on insulin, urinary incontinence, RLS, OA. patient presented after a fall at home due to lightheadedness and striking her head on the floor, diagnostic imaging negative for acute trauma however did reveal left-sided pyelonephritis and UA appears infectious. Patient is being admitted for IV antibiotics and PT/OT evals. Patient seen at bedside. She stated that today she got lightheaded and fell hitting her head on the floor, she is not on any blood thinners. She stated she is unsure if she lost consciousness, she may have. She stated she just got lightheaded, denies dizziness/the room spinning, denies chest pain or shortness of breath prior to the fall. She stated she did not trip over anything. she denies any current lightheadedness, headache, or pain. On diagnostic imaging for trauma, patient was found to have left-sided pyelonephritis and cystitis, UA also suspicious for infection. Patient stated she has had left-sided back pain for multiple days and felt feverish, afebrile on admission. She also endorses urinary symptoms of burning with urination today. She does have a history of urinary incontinence and wears depends. She also endorses rhinorrhea and cough for several days. Patient denies headache, current dizziness, current lightheadedness, dyspnea, dyspnea on exertion, chest pain, abdominal pain. Regarding receiving Benadryl and Solu-Medrol in ED, patient denies having allergic reaction. She has no history of allergy to IV contrast and denies any dyspnea, itchiness, sore throat after receiving IV contrast. She denies history of tobacco use or alcohol use. She stated she does have a history of diabetes and uses insulin 60 units at bedtime, she has not had any home medications today including insulin. Will order on admission. She wishes to be full code. She does not use oxygen at baseline. Patient is agreeable to PT/OT evals. Discharge Exam Constitutional General: Comfortable, coherent, cooperative. Wide awake and alert. Not confused, lethargic, or obtunded. Patient speaks in complete, fluent, and articulate sentences without pause, interruption, cough, or wheeze. HEENT: Normocephalic, atraumatic. Pupils equally round and reactive to light. Extra-ocular muscles intact. No nystagmus, gaze paresis, anisocoria, miosis, mydriasis, hyphema, scleral injection, conjunctivitis, or pterygium. No rhinorrhea or otorrhea. No pharyngeal discharge or erythema. Neck: Supple, no stridor, bruit, goiter, hepatojugular reflux. Jugular venous pressure is estimated to be 8 cm above the sternal angle of [place], which is estimated to be 5 cm above the level of the right atrium. Lymph: No anterior/posterior cervical, supraclavicular/infraclavicular, axillary, epitrochlear, or inguinal adenopathy. Chest: Symmetric rise and fall with respirations. Lungs: Clear to auscultation and percussion. No audible expiratory wheeze, egophony, pectoriloquy, increase in tactile fremitus, or flatness/dullness to percussion at the bases. Heart: RRR, S1 and S2 noted. No S3 or S4 summation gallop noted. No tripartite friction rub. Grade II/ early systolic murmur @ LLSB without rad iation to the carotids, axilla, or back, and which remains invariant in regards to the respiratory cycle. Abdomen: Soft, non-tender, non-distended. No rebound, guarding, Johnson's sign, or organomegaly. Bowel sounds sounds auscultated in all 4 quadrants. Extremities: No clubbing, cyanosis, or edema. 2+ pedal pulses bilaterally. Skin: No decubitus ulcer, exanthem, or enanthem. Neurology: Alert and oriented to person, place, time, and situation. DTR+ and symmetric. 5/5 motor strength in all 4 extremities, both proximally and distally. No pronator drift. No facial droop. Urology: No be catheter. No urethral discharge. Psychiatry: No suicidal ideation. No homicidal ideation. Discharge Plan Discharge Items Patient Disposition: Transfer Group Home Fac Reason For Visit: PYELONEPHRITIS, FALL Discharge Diagnosis: Acute pyelonephritis Activity: Resume your previous activity Non-emergency contact: Primary Care Provider Call non-emergency contact if: you have any medication questions Follow-up/Referrals: Mer Jack DO [Primary Care Provider] - Diet: Carb Consistent or DM2, Heart Healthy, Low Fat and Low Sodium (2gm) Addtl Attending Provider Instructions: See your PCP Dr. Mer Jack within 7 days of hospital discharge Pending Studies at Discharge: No Stand-Alone Forms: My [facility] Skilled Items Patient informed of condition?: Yes DNR: No Discharge Level of Care: Skilled Communicable Disease: No Discharge Prognosis: Stable Lines: None Urinary Catheter: No Medications and DC Order Prescriptions: New insulin glargine [Lantus Solostar U-100 Insulin] 100 unit/mL (3 mL) insulin pen 45 unit subcut PM Qty: 15 0RF Continued (DME) OneTouch Ultra Blue Test Strip Strip See Dose Instructions .ROUTE .MEDSUPPLY Qty: 400 3RF Rx Instructions: test 4 times daily (DME) Wheeled Walker Misc See Rx Instructions .Route Qty: 1 0RF Rx Instructions: As directed (DME) Scooter Misc See Rx Instructions .Route Qty: 1 0RF Rx Instructions: Motorized Scooter ([facility]) pen needle, diabetic [BD Ultra-Fine Araceli Pen Needle] 32 gauge x 5/32" needle See Dose Instructions .ROUTE .MEDSUPPLY Qty: 200 3RF Rx Instructions: use 2 needles daily (DME) blood-glucose meter [OneTouch Ultra2 Meter] Misc See Rx Instructions .ROUTE .MEDSUPPLY Qty: 1 0RF Rx Instructions: Test blood sugars 4 times a day (DME) lancets Misc See Dose Instructions .ROUTE .MEDSUPPLY Qty: 400 3RF Dose Instruction: As directed Rx Instructions: Testing 4 times daily Premarin 0.625 mg/gram cream 1 applic vaginal 2XWK 30 Days Qty: 30 3RF Rx Instructions: TUESDAY & TUESDAY carvedilol 6.25 mg tablet 6.25 mg PO BID Qty: 90 2RF Rx Instructions: HOLD FOR SPB <110, OR HR < 60 duloxetine 60 mg capsule,delayed release(DR/EC) 60 mg PO BID Qty: 60 5RF pregabalin 150 mg capsule 150 mg PO BID Qty: 60 5RF omeprazole 40 mg capsule,delayed release(DR/EC) 40 mg PO QAM Qty: 90 2RF Rx Instructions: TAKE ONE CAPSULE BY MOUTH EVERY DAY amlodipine [Norvasc] 5 mg tablet 5 mg PO QAM Qty: 90 1RF omega 7-axn-knr-fish oil [Fish Oil] 1,000 (120-180) mg capsule 1 cap PO HS Qty: 90 2RF nystatin-triamcinolone 100,000-0.1 unit/g-% cream 1 applic topical BID Qty: 30 4RF (DME) Day and Night Brief, Large Misc See Rx Instructions .Route Qty: 120 5RF Rx Instructions: As directed loratadine [Claritin] 10 mg tablet 10 mg PO DAILY Qty: 90 1RF semaglutide 1 mg/dose (4 mg/3 mL) pen injector 1 mg subcut WK 90 Days Qty: 9 1RF Rx Instructions: TUESDAYS aspirin 81 mg Tablet,Delayed Release (Dr/Ec) 81 mg PO HS calcitonin (salmon) 200 unit/actuation [place],Non-Aerosol 1 spray NA DAILY Qty: 3.7 0RF Rx Instructions: ALTERNATE NASAL DAILY acetaminophen 325 mg tablet 650 mg PO TID PRN (Reason: Pain) Rx Instructions: 0001, 0800, & 1200 (DME) blood-glucose meter [OneTouch Ultra2 Meter] Misc See Rx Instructions .Route Qty: 1 0RF Rx Instructions: As directed cholecalciferol (vitamin D3) [Vitamin D3] 50 mcg (2,000 unit) Capsule 50 mcg PO DAILY Discontinued Gemtesa 75 mg tablet 75 mg PO DAILY Qty: 30 2RF insulin degludec [Tresiba FlexTouch U-100] 100 unit/mL (3 mL) insulin pen 60 unit SUBCUT HS Qty: 30 4RF Discharge Orders: Discharge Order (Routine); Ordered 10/03/24 Ordered By: Mohit Hdz Admission Data Admit Date/Time: 09/27/24 23:28 Attending Provider: Mohit Hdz Admit Provider: Sravanthi [place] Primary Care Provider: Mer Jack Other Providers: Real Salazar; [facility] Stay Data Consultations 09/27/24 21:41 ED Decision to Admit Stat Diagnostic Imagining Performed 09/27/24 20:00 CT abd pelvis IV con only Stat CT cervical spine wo con Stat CT head/brain wo con Stat Pending Results Patient Have Any Pending Studies at Discharge: No Discharge Instructions Given to Patient (Per Discharging Provider) See your PCP Dr. Mer Jack within 7 days of hospital discharge Total Time Total Time Spent Total Time Spent (In Minutes): 35 Coding Level of Care Code 38022 INP/OBS DISCH >30 MIN Diagnoses Acute pyelonephritis N10 UTI (urinary tract infection) N39.0 Syncope and collapse R55 Uncontrolled type 2 diabetes mellitus with hyperglycemia E11.65 Glycemic state: with hyperglycemia Dehydration E86.0 Hyponatremia E87.1 Abnormal LFTs (liver function tests) R79.89 Allergic reaction T78.40XA
[2024-10-03 10:45] VITALS: BP 141/80; PULSE 52
== END 2024-10-03 14:07 | DRG 690 ==
LOC: SUATTDRO → ED 19:28 → EDINP 23:28 → SUATTDRO 23:28 → 2N 09-28 02:03